=== PATIENT | male | born 1970 | race Caucasian/White ===

== ENCOUNTER 2019-12-09 09:50 | Outpatient (CLI) | payer MEDICARE, MEDICAID, SELFPAY ==
--- NOTE | 2019-12-09 10:00 | XR_ITS ---
WS: [id number] KUB, 12/09/2019 Clinical Data: Neurogenic Bladder Comparison: KUB, 08/20/2005 Findings: The patient has a vena caval filter. The patient has had a posterior fusion of the L4, L5 and S1 vert ebral bodies with bilateral pedicle screws connected with rods. The inferior pedicle screw on the rig ht has broken. There is a large amount of fecal material throughout the colon. No definite renal or ureteral calculi are seen. There are calcifications surrounding the femoral necks of both hips. XR/XR KUB [id number] Impression: 1. Negative for renal or ureteral calculi. 2. Posterior lumbar fusion L4-S1. 3. Abundant periarticular calcifications around both femoral necks..
--- NOTE | 2019-12-09 10:15 | US_ITS ---
WS: [id number] ULTRASOUND RENAL TECHNIQUE: Ultrasound examination of both kidneys. CLINICAL INFORMATION: Neurogenic bladder COMPARISON: None. FINDINGS: RIGHT: Right kidney is normal in size and appearance. Echogenicity: Normal. Hydronephrosis: None. Perinephric fluid: None. Right kidney measures: 12.0 cm x 7.3 cm x 6.1 cm. LEFT: Left kidney is normal in size and appearance. Echogenicity: Normal. Hydronephrosis: None. Perinephric fluid: None. Left kidney measures: 12.7 cm x 7.4 cm x 6.2 cm. Normal visualized aorta. US/US renal BI* [id number] IMPRESSION: No hydronephrosis in either kidney. Olivas catheter in the bladder.
== END 2019-12-09 09:51 | disposition home or self-care (01) ==
LOC: RAD 09:58
PROVIDERS: Family Provider Physician Assistant Medical; PCP Physician Assistant Medical; Visit Provider Urology
DX: N31.9 Neuromuscular dysfunction of bladder, unspecified (principal)
CPT/HCPCS: 74018; 76770

== ENCOUNTER 2020-01-11 08:51 | Outpatient (CLI) | payer MEDICARE, MEDICAID, SELFPAY ==
[2020-01-11] MEDS: iohexol 300 mg/mL 100 mL Btl IV (09:11)
--- NOTE | 2020-01-11 10:00 | CT_ITS ---
WS: [id number] CT ABDOMEN AND PELVIS WITH AND WITHOUT CONTRAST HISTORY: Urinary retention TECHNIQUE: Unenhanced 5 mm axial imaging first performed through the abdomen. Post contrast imaging t hrough the abdomen and pelvis. Oral contrast has not been provided. Sagittal and coronal reformats a re submitted. All CT scans at [facility] use at least one of these dose optimization tech niques: automated exposure control; mA and/or kV adjustment per patient size (includes targeted exams where dose is matched to clinical indication); or iterative reconstruction. CONTRAST: Omnipaque 300; 95 mL IV. DLP: 4536.27 mGy.cm COMPARISON: Pelvis MRI 06/23/2017. Mild chronic emphysematous changes at the lung bases. No pneumonia. Heart size is normal. Small hiata l hernia. Liver is normal size with diffuse mild hepatic steatosis. No mass. Portal vein is patent. No bile rajni t dilatation. Gallbladder is contracted with no stones or adjacent inflammation. Normal size spleen a nd pancreas and adrenal glands. Scattered calcifications within the abdominal aorta with no aneurysm. There is an IVC filter at the level of the renal veins. No adenopathy or fluid in the upper abdomen. RIGHT kidney: Normal size kidney with no calcifications or obstruction. No solid mass. Incomplete svitlana ling of the ureter on delayed imaging. No filling defect in the ureter. LEFT kidney: Normal size LEFT kidney. Cortical scar along the posterior upper pole. No calcification or obstruction or solid mass. Normal enhancement of the kidney and normal excretion. No filling defec t in the LEFT ureter. Urinary bladder: Nondistended urinary bladder. There is a Olivas catheter in place. There is diffuse b ladder wall thickening around the catheter. No asymmetry of bladder wall thickness. No free fluid. No GI tract obstruction. No significant diverticular disease. Again noted is the large soft tissue tracts over the RIGHT lateral hip. This tract contains air which is embedded along the tract. This tract and soft tissue ulceration has been present since at least 2 017. There is an additional soft tissue ulceration posterior to the sacrum which is also been present on previous the described. There are no adjacent fluid collections or abnormal enhancement to sugges t a recurrent or new abscess. LEFT lateral convex scoliosis of the lumbar spine. Advanced degenerative changes at the hips. Extensi ve calcifications in the soft tissues around the hips probably related to myositis ossificans. Cloth Folder Hand ior fusion hardware in the lumbar spine. L4 anterolisthesis by [address]/CT abdomen pelvis wo/w [id number] IMPRESSION: 1. No renal mass or obstruction. 2. Olivas catheter in a nondistended urinary bladder. Symmetric bladder wall th ickening is probably due to underdistention. 3. Mild hepatic steatosis. 4. Soft tissue ulcerated tracts over the RIGHT hip and sacrum are chronic and have been previously described. No recurrent or new abscess identified. 5. Myositis ossificans at the hips.
== END 2020-01-11 08:52 | disposition home or self-care (01) ==
PROVIDERS: Family Provider Physician Assistant Medical; PCP Physician Assistant Medical; Visit Provider Urology
DX: M61.58 Other ossification of muscle, other site (principal); R33.9 Retention of urine, unspecified; K76.0 Fatty (change of) liver, not elsewhere classified
CPT/HCPCS: 74178

== ENCOUNTER 2021-05-01 08:42 | Outpatient (CLI) | payer MEDICARE, MEDICAID, SELFPAY ==
--- NOTE | 2021-05-01 08:15 | XR_ITS ---
WS: [id number] KUB, AP view, 05/01/2021 Clinical Data: HX OF BLADDER STONE Comparison: KUB, 12/09/2019. Findings: No renal or ureteral calculi are seen. There is air and colon gas obscuring detail over both kidneys. There is a vena caval filter. There are stimulator wires overlying the L5 vertebra. A posterior fusi on from L4 to S1 is seen. The right L5 pedicle screw has broken. There are bilateral synovial calcifications surrounding the hips. XR/XR KUB [id number] Impression: Negative for renal or ureteral calculi.
== END 2021-05-01 08:43 | disposition home or self-care (01) ==
LOC: RAD 08:45
PROVIDERS: PCP Physician Assistant Medical; Visit Provider Urology
DX: Z87.448 Personal history of other diseases of urinary system (principal)
CPT/HCPCS: 74018

== ENCOUNTER 2022-07-12 19:06 | Inpatient (IN) | payer MEDICARE, MEDICAID, SELFPAY ==
[2022-07-12] VITALS (12 sets, daily range): BP systolic 104–175; BP diastolic 67–90; PULSE 96–118; RESP 16–35; TEMP 37.2–37.6; O2SAT 87–98; BMI 32.1
--- NOTE | 2022-07-12 19:19 | XRR_ITS ---
PROCEDURE INFORMATION: Exam: XR Chest Exam date and time: 07/12/2022 7:32 PM Age: 52 years old Clinical indication: Other: Sepsis; Patient HX: Unclear HX due to PT condition TECHNIQUE: Imaging protocol: Radiologic exam of the chest. Views: 1 view. COMPARISON: CR Chest 2 views* [id number] 06/22/2017 10:17 AM FINDINGS: Lungs: Half interstitial prominence with peribronchial cuffing consistent with mild interstitial pulmonary edema. Probable mild pneumonia infiltrates at both lung bases. Pleural spaces: Unremarkable. No pleural effusion. No pneumothorax. Heart/Mediastinum: Unremarkable. No cardiomegaly. Bones/joints: There has been fusion of the lower cervical spine. Right convex curvature may be due to positioning or muscle spasm. There are degenerative changes throughout the spine. XR/XR chest 1V portable [id number] IMPRESSION: Mild pneumonia infiltrates at the lung bases with probable superimposed pulmonary edema.
--- NOTE | 2022-07-12 19:19 | CTR_ITS ---
PROCEDURE INFORMATION: Exam: CT Head Without Contrast Exam date and time: 07/12/2022 7:51 PM Age: 52 years old Clinical indication: Altered mental status/memory loss; Additional info: AMS TECHNIQUE: Imaging protocol: Computed tomography of the head without contrast. Radiation optimization: All CT scans at this facility use at least one of these dose optimization techniques: automated exposure control; mA and/or kV adjustment per patient size (includes targeted exams where dose is matched to clinical indication); or iterative reconstruction. COMPARISON: CT head wo con* [id number] 04/10/2017 8:25 AM RADIATION DOSE METRICS: Total DLP (mGy-cm): 1310.18 FINDINGS: Brain: Normal. No hemorrhage. Unremarkable white matter. No mass effect. Cerebral ventricles: No ventriculomegaly. Paranasal sinuses: Mucosal thickening in the right ethmoid and maxillary sinuses. Mastoid air cells: Visualized mastoid air cells are well aerated. Bones/joints: Unremarkable. No acute fracture. Soft tissues: Unremarkable. CT/CT head wo con* [id number] IMPRESSION: No acute intracranial abnormality.
[2022-07-12 19:24] LABS: ABG PCO2 29.4 mmHg (35-45); ABG PH Result 7.47 (7.35-7.45); Arterial Blood Gas Hematocrit 22.1 % (42-52); Base Excess ABG -1.8 mmol/L (-2.0-2.0); Blood Gas Sample Site Brachial, left; Blood Gas Sample Type Arterial; HCO3 ABG 21.5 mmol/L (22-26); Oxygen Device NC; PO2 ABG 47.2 mmHg (80.0-100.0)
--- NOTE | 2022-07-12 19:49 | ED_ITS ---
HPI - Altered Mental Status General: Chief Complaint: Altered Mental Status Stated Complaint: SOB Time Seen by Provider: 07/12/22 19:06 History of Present Illness: 52-year-old paraplegic male. He presents after 3 days or so of fever. states that his fever was 104 yesterday at home. Today it has not been quite as high, but his mental status has been worse today. Mental status seems to fluctuate from more coherent and less. He began to get short of breath this afternoon, and EMS was called. He denies significant cough, belly pain, vomiting. He has been tested 2 times at home for COVID and has been negative. MD complaint: altered mental status and confusion Onset (ago): day(s) Timing confirmed by: spouse Consistency of symptoms: Getting Worse Context: recent fever Treatments prior to arrival: oxygen Review of Systems Const: Reports: fever(s) and chills; Denies: body aches Eyes: Denies: change in vision Card: Denies: chest pain or palpitations Resp: Reports: dyspnea and non-productive cough; Denies: productive cough or wheezing GI: Denies: abdominal pain, nausea, vomiting, diarrhea or hematochezia Skin/Breast: Reports: other (Chronic decubitus wounds); Denies: rash Neuro: Denies: headache(s), weakness in extremities, dizziness or confusion PFS ED PFSH: Medical History ASHD (arteriosclerotic heart disease) Chronic indwelling Olivas catheter History of bladder stone CYSTOLITHOLAPAXY Hyperlipidemia Hypertension 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-6) Recurrent UTI Retention of urine due to occlusion of Olivas catheter Surgical History History of cervical spinal surgery History of lumbar surgery Family History Mother Hypertension Father Arthritis Social History Smoking and tobacco status: former smoker Alcohol intake: never Adopted: No Caregiver/support person: No Lives independently: No Household members: significant other Marital status: Current occupational status: disabled History of recent travel: No Physical Exam Const: GENERAL APPEARANCE: in distress, ill appearing and frail appearing HENMT: COMMON NORMALS: normocephalic, atraumatic and Normal external nose present HEAD & SCALP: normocephalic and atraumatic FACE & SINUS: normal facial exam NOSE: Normal external nose present Eye: COMMON NORMALS: Equal, round and reactive pupils present and EOMs intact bilaterally PUPIL: Yes Equal, round and reactive pupils present Neck/C-Spine: GENERAL: Yes trachea midline Chest: CHEST: Yes Symmetrical chest wall rise Resp: EFFORT & INSPECTION: Yes respiratory distress and Yes uses accessory muscles AUSCULTATION: diminished lung sounds Cardio: COMMON NORMALS: regular rhythm RATE: tachycardic RHYTHM: regular rhythm GI: COMMON NORMALS: Normal to inspection, nondistended, normoactive bowel sounds present, Soft to palpation and non-tender PALPATION: Yes Soft to palpation : COMMON NORMALS: Yes no CVA tenderness BLADDER/KIDNEY EXAM: Yes no CVA tenderness Back/Pelvis: COMMON NORMALS: no CVA tenderness Neuro: FADY COMA SCALE: document GCS findings Fady coma scale eye opening: Spontaneous Fady coma scale verbal response: Confused [place] coma scale motor response: Obey commands Fady coma scale total score: 14 Psych: COMMON NORMALS: cooperative Skin: NARRATIVE SKIN EXAM: 3 decubitus wounds. 1 new, uncovered, but very clean, no drainage, no redness Course Vital Signs: Vital signs: Vital Signs Temperature 98.1 F 07/15/22 04:00 Pulse Rate 76 07/15/22 12:00 Respiratory Rate 16 07/15/22 12:00 Blood Pressure 130/78 07/15/22 12:00 Pulse Oximetry 94 07/15/22 12:00 Oxygen Delivery Me thod 07/15/22 12:00 Oxygen Flow Rate 2 07/15/22 10:43 MDM - Altered Mental Status Medical Decision Making This gentleman is altered. He answers some questions appropriately. He is tachycardic, febrile. He has a white blood cell count of 16.5. His hemoglobin is 7.4. I do not have a prior one for comparison. His sodium is 122. His bicarbonate is 18 his lactate is 3. He has right greater than left-sided pneumonia. His CRP is 219. COVID PCR is pending. He does have a nitrate positive urine with only 5-10 WBCs. He is given on Vanco and Levaquin in the ER, as he has anaphylactic reactions to penicillin. Blood cultures are pending. Bolus of 2 out of 3 L so far he will go to the ICU. Lab Data : 07/15/22 02:10 07/15/22 02:[address] 07/12/22 19:19 IMPRESSION: No acute intracranial abnormality. Chest CTA 07/13/22 03:40 IMPRESSION: 1. No pulmonary artery embolism identified. 2. Specific mild mediastinal and pulmonary hilar lymphadenopathy. 3. Possible pulmonary arterial hypertension. Clinical correlation is recommended. 4. Airspace opacity right lower lobe superior segment. Pneumonitis is difficult to exclude. Clinical correlation is recommended. 5. Pulmonary emphysema. 6. Groundglass opacity in the right upper, greater than 6 mm. Impression. Recommend followup CT in 6-12 months to confirm persistence, then CT at 3 and 5 years (Robb et al., Fleischner Society, 2017). 7. Coronary atherosclerosis. 8. Minimal bilateral pleural effusions. Venous Duplex 07/13/22 03:40 IMPRESSION: No evidence of deep vein thrombosis. Chest X-Ray 07/13/22 09:15 IMPRESSION: Slightly increased mild perihilar and basilar interstitial opacities, suggestive of increased pulmonary edema and/or interstitial pneumonia. Recommend correlation with clinical history and follow-up. Soft Tissue Ultrasound 07/14/22 18:40 IMPRESSION: No RIGHT gluteal soft tissue abscess. Laboratory Results WBC 16.5 10^3/uL (4.0-10.0) H 07/12/22 19:39 RBC 4.57 10^6/uL (4.1-5.3) 07/12/22 19:39 Hgb 7.4 g/dL (11.7-16.6) L 07/12/22 19:39 Hct 29.4 % (42.0-52.0) L 07/12/22 19:39 MCV 64.3 fl (80-94) L 07/12/22 19:39 MCH 16.2 pg (28.0-34.0) L 07/12/22 19:39 MCHC 25.2 g/dL (30.0-36.0) L 07/12/22 19:39 RDW 20.7 % (12.1-15.1) H 07/12/22 19:39 Plt Count 270 10^3/cmm (130-400) 07/12/22 19:39 MPV 9.4 fL (7.4-10.4) 07/12/22 19:39 Neut % (Auto) 87.6 % 07/12/22 19:39 Lymph % (Auto) 3.5 % 07/12/22 19:39 [place] % (Auto) 7.2 % 07/12/22 19:39 Eos % (Auto) 0.5 % 07/12/22 19:39 Baso % (Auto) 0.4 % 07/12/22 19:39 Reticulocyte % (Auto) 1.1 % (0.5-2.0) 07/12/22 19:39 Neut # (Auto) 14.45 10^3/uL (1.8-7.7) H 07/12/22 19:39 Lymph # (Auto) 0.6 10^3/uL (0.8-4.8) L 07/12/22 19:39 [place] # (Auto) 1.2 10^3/uL (0.2-0.9) H 07/12/22 19:39 Eos # (Auto) 0.1 10^3/uL (0.0-0.8) 07/12/22 19:39 Baso # (Auto) 0.1 10^3/uL (0.0-0.1) 07/12/22 19:39 Nucleated RBC % (auto) 0 % 07/12/22 19:39 Nucleated RBCs # 0.0 /100WBC 07/12/22 19:39 Specimen Type Arterial 07/12/22 19:19 Sample Site Brachial, left 07/12/22 19:19 ABG pH 7.47 (7.35-7.45) H 07/12/22 19:19 ABG pCO2 29.4 mmHg (35-45) L 07/12/22 19:19 ABG pO2 47.2 mmHg (80.0-100.0) L 07/12/22 19:19 ABG HCO3 21.5 mmol/L (22-26) L 07/12/22 19:19 ABG Base Excess -1.8 mmol/L (-2.0-2.0) 07/12/22 19:19 Magno Test N/a 07/12/22 19:19 Hematocrit 22.1 % (42-52) L 07/12/22 19:19 O2 Delivery Device Nc 07/12/22 19:19 O2 Liters/Min 4.0 % 07/12/22 19:19 Shader And Toner ID Jermainenja 07/12/22 19:19 Sodium 123 mmol/L (136-145) L 07/12/22 21:37 Potassium 4.0 mmol/L (3.5-5.1) 07/12/22 19:39 Chloride 88 mmol/L (98-107) L 07/12/22 19:39 Carbon Dioxide 18 mmol/L (22-29) L 07/12/22 19:39 Anion Gap 20.0 (5-19) H 07/12/22 19:39 BUN 20 mg/dL (6-20) 07/12/22 19:39 Creatinine 0.4 mg/dL (0.7-1.2) L 07/12/22 19:39 GFR Calculation 225.0 mL/min (90-130) H 07/12/22 19:39 Glucose 191 mg/dL (65-115) H 07/12/22 19:39 Calculated Osmolality 262 mOsm/kg (285-295) L 07/12/22 19:39 Lactate 2.9 mmol/L (0.5-2.2) H 07/12/22 19:39 Uric Acid 5.1 mg/dL (3.4-7.0) 07/12/22 21:37 Calcium 8.4 mg/dL (8.5-10.5) L 07/12/22 19:39 Iron 10 ug/dL (59-158) L 07/12/22 21:37 Iron Cancelled 07/12/22 21:37 TIBC 268 mcg/dl 07/12/22 21:37 % Saturation 3.7 % (20-50) L 07/12/22 21:37 Unsat Iron Binding 258 ug/dL (112-347) 07/12/22 21:37 Ferritin 71 ng/mL (30-400) 07/12/22 21:37 Total Bilirubin 0.7 mg/dL (0.15-1.2) 07/12/22 19:39 AST 87 U/L (0-40) H 07/12/22 19:39 ALT 60 U/L (0-41) H 07/12/22 19:39 Alkaline Phosphatase 98 U/L (40-130) 07/12/22 19:39 C-Reactive Protein 219.0 mg/L (0.0-4.9) H 07/12/22 19:39 NT-Pro-B Natriuret Pep 2864 pg/mL (0-125) H 07/12/22 19:39 Total Protein 6.5 g/dL (6.6-8.7) L 07/12/22 19:39 Albumin 3.2 g/dL (3.5-5.2) L 07/12/22 19:39 Globulin 3.3 g/dL (1.3-4.6) 07/12/22 19:39 Vitamin B12 565 pg/mL (232-1245) 07/12/22 21:37 Procalcitonin 27.43 ng/mL (0-0.5) H 07/12/22 21:37 TSH 0.77 uIU/mL (0.27-4.20) 07/12/22 21:37 Urine Color Lovely (Yellow) 07/12/22 21:02 Urine Appearance Clear (CLEAR) 07/12/22 21:02 Urine pH 5 (5-7) 07/12/22 21:02 Ur Specific [place] 1.010 (1.005-1.030) 07/12/22 21:02 Urine Protein 2+ (Negative) H 07/12/22 21:02 Urine Glucose (UA) Norm (Normal) 07/12/22 21:02 Urine Ketones 1+ (Negative) H 07/12/22 21:02 Urine Blood 2+ (Negative) H 07/12/22 21:02 Urine Nitrate Positive (Negative) H 07/12/22 21:02 Urine Bilirubin 1+ (Negative) H 07/12/22 21:02 Urine Urobilinogen 4 mg/dL (Negative) H 07/12/22 21:02 Ur Leukocyte Esterase Trace (Negative) H 07/12/22 21:02 Urine RBC 0-4 /hpf (0-2) H 07/12/22 21:02 Urine WBC 5-10 /hpf (0-5) H 07/12/22 21:02 Ur Eosinophil Smear 0 (0-0) 07/12/22 08:26 Ur Squamous Epith Cells 0-4 /hpf (0-5) H 07/12/22 21:02 Amorphous Sediment Trace /hpf 07/12/22 21:02 Urine Bacteria Trace /hpf (NONE) 07/12/22 21:02 Urine Mucus 1+ /hpf 07/12/22 21:02 Urine Yeast 2+ /hpf H 07/12/22 21:02 Urine Sperm 1+ /hpf 07/12/22 21:02 Urine Eosinophils No eosinophils seen 07/12/22 08:26 Urine Osmolality Cancelled 07/12/22 21:02 Ur Random Microalbumin 6 ug/dL (0-20) 07/12/22 08:26 Ur Random Sodium 146 mmol/L 07/12/22 08:26 Ur Random Potassium 38 mmol/L 07/12/22 08:26 Ur Random Chloride 144 mmol/L 07/12/22 08:26 Urine Creatinine 25 mg/dL (39-259) L 07/12/22 08:26 Urine Creatinine 25 mg/dL (39-259) L 07/12/22 08:26 Microalb/Creat Ratio 240 mg/dL (0-20) H 07/12/22 08:26 Ethyl Alcohol < 10 mg/dL (0-10) 07/12/22 19:39 Coronavirus 229E (PCR) Not detected (NOT DETECT) 07/12/22 21:02 SARS-CoV-2 (PCR) Not detected (NOT DETECT) 07/12/22 21:02 Discharge Plan Discharge Patient Disposition: Admitted As Inpatient Admit Provider: Corine Rubalcava Clinical Impression: Sepsis Condition: Stable Coding Level of Care Code ED Family Services Assistant for Chg Fwd Exam Comprehensive
[2022-07-12 19:51] LABS: Basophils # 0.1 10^3/uL (0.0-0.1); Basophils % 0.4 %; Eosinophils # 0.1 10^3/uL (0.0-0.8); Eosinophils % 0.5 %; Hematocrit 29.4 % (42.0-52.0); Hemoglobin 7.4 g/dL (11.7-16.6); Lymphocytes # 0.6 10^3/uL (0.8-4.8); Lymphocytes % 3.5 %; Mean Corpuscular HGB Conc 25.2 g/dL (30.0-36.0); Mean Corpuscular Hemoglobin 16.2 pg (28.0-34.0); Mean Corpuscular Volume 64.3 fl (80-94); Mean Platelet Volume 9.4 fL (7.4-10.4); Monocytes # 1.2 10^3/uL (0.2-0.9); Monocytes % 7.2 %; Neutrophils # 14.45 10^3/uL (1.8-7.7); Neutrophils % 87.6 %; Nucleated Red Blood Cells % 0 %; Platelet Count 270 10^3/cmm (130-400); Red Blood Count 4.57 10^6/uL (4.1-5.3); Red Cell Distribution Width 20.7 % (12.1-15.1); White Blood Count 16.5 10^3/uL (4.0-10.0)
[2022-07-12 20:04] LABS: Lactate (Lactic Acid level) 2.9 mmol/L (0.5-2.2)
[2022-07-12 20:18] LABS: Alanine Aminotransferase 60 U/L (0-41); Albumin Level 3.2 g/dL (3.5-5.2); Alkaline Phosphatase 98 U/L (40-130); Aspartate Amino Transferase 87 U/L (0-40); Blood Urea Nitrogen 20 mg/dL (6-20); Calcium 8.4 mg/dL (8.5-10.5); Carbon Dioxide 18 mmol/L (22-29); Chloride 88 mmol/L (98-107); Globulin 3.3 g/dL (1.3-4.6); Glucose 191 mg/dL (65-115); NT Pro B Type Natriuretic Pept 2864 pg/mL (0-125); Osmolality Calculated 262 mOsm/kg (285-295); Sodium 122 mmol/L (136-145); Total Bilirubin 0.7 mg/dL (0.15-1.2); Total Protein 6.5 g/dL (6.6-8.7)
[2022-07-12 20:19] LABS: Alcohol Level < 10 mg/dL (0-10)
[2022-07-12] MEDS: sodium chloride 0.9% 1,000 ML 999 ML IV ×3 (20:23→21:59)
[2022-07-12] MEDS: levofloxacin-dextrose 5 % 750 MG/150 ML PREMIX 100 MG IV (20:23)
--- NOTE | 2022-07-12 21:00 | ECG_ITS ---
[facility] Test Date: 2022-07-12 Pat Name: David Chen Department: Room: Gender: Male Exhibit Artist: : 1970 Requested By: Elver Baker Order Number: [id number] Terry MD: Shiloh Olivia M.D. Measurements Intervals [place] Rate: 100 P: 37 MI: 140 QRS: 51 QRSD: 98 T: 63 QT: 335 QTc: 434 Interpretive Statements SINUS TACHYCARDIA INCOMPLETE RIGHT BUNDLE BRANCH BLOCK Compared to ECG 04/07/2017 14:08:27 Incomplete right bundle-branch block now present Atrial fibrillation no longer present T-wave abnormality no longer present Electronically Signed On 07-13-2022 13:05:24 CDT by Shiloh Olivia M.D. [id number]
--- NOTE | 2022-07-12 21:27 | P.HP_ITS ---
Providers/Chief Complaint Chief Complaint: SOB History of Present Illness David Chen is a 52 year old male With history of coronary disease, STEMI status post PCI to RCA postcardiac arrest defibrillation preserved ejection fraction heart failure, patient is quadriplegic, wheelchair dependent, chronic indwelling catheter, follows up with Dr. Alberts neurogenic bladder secondary to spinal cord injury recurrent UTIs cystolithiasis presented with chief complaint of shortness of breath and confusion. Patient is stating that he was fine until 48 hours ago when he short experiencing shortness of breath, he does not use any oxygen or CPAP at night, he noticed fever of 104, his shortness of breath gradually got worse, he is going to episode of diarrhea, he was concerned about COVID-related symptoms, no recent exposure. No active chest pain, abdominal pain, he does have multiple sacral ulcers, right greater trochanter ulcer which is not showing any active signs of worsening, dressing is soaked with mild yellow discharge. In the ER he has been diagnosed with sepsis related to community-acquired pneumonia, considering recurrent UTI history UA is pending I have requested urine studies, serum osmolarity TSH uric acid he has already received antibiotics, blood culture has been taken I will give him vancomycin, metronidazole and aztreonam Patient is stating that he had anaphylactic type reaction to penicillin several years ago Is full code Currently on nonrebreather mask 7 L of oxygen Tachypneic, tachycardic, leukocytosis with lactic acidemia I am choosing only 1 L normal saline bolus because of hyponatremia I do not want to aggressively give him septic bolus at this point my concern is related to rapid correction of sodium which can cause central pontine melanosis At this point patient is moving his upper extremities, able to answer my question appropriately He eats regular diet Review of Systems Const: Reports: fever(s), chills and body aches Eyes: Denies: change in vision ENMT: Denies: throat pain Card: Denies: chest pain Resp: Reports: dyspnea GI: Reports: nausea and diarrhea : Denies: flank pain Musc: Denies: neck pain Skin/Breast: Reports: sores, non-healing lesions and lesions Neuro: Reports: headache(s) Psych: Reports: anxiety Endo: Denies: polyuria Sarwat/Lymph: Denies: easy bruising All/Imm: Denies: urticaria Medications/Allergies Home Medications Medication Instructions Recorded Confirmed Last Taken Type albuterol sulfate 90 mcg/actuation 2 puff inhalation Q4H PRN 11/17/19 05/01/21 Unknown History aerosol inhaler amitriptyline 10 mg tablet 10 mg PO BID 11/17/19 05/01/21 Unknown History ascorbate calcium (vitamin C) 500 500 mg PO BID 11/17/19 05/01/21 Unknown History mg tablet aspirin 81 mg tablet,delayed 81 mg PO DAILY 11/17/19 05/01/21 Unknown History release (Adult Aspirin Regimen) atorvastatin 40 mg tablet 40 mg PO DAILY 11/17/19 05/01/21 Unknown History baclofen 20 mg tablet 20 mg PO TID 11/17/19 05/01/21 Unknown History bupropion HCl 150 mg 24 hr tablet, 150 mg PO BID 11/17/19 05/01/21 Unknown History extended release clopidogrel 75 mg tablet 75 mg PO DAILY 11/17/19 05/01/21 Unknown History coenzyme [id number] E [CoQ10 SG PO 11/17/19 05/01/21 Unknown History 100] d-mannose each PO 11/17/19 05/01/21 Unknown History esomeprazole magnesium 20 mg 20 mg PO DAILY 11/17/19 05/01/21 Unknown History capsule,delayed release (Nexium) fluticasone propionate 50 2 spray intranasal DAILY PRN 11/17/19 05/01/21 Unknown History mcg/actuation nasal spray,suspension (Flonase Allergy Relief) gabapentin 300 mg capsule 300 mg PO TID 11/17/19 05/01/21 Unknown History ibuprofen 200 mg capsule 200 mg PO DAILY PRN fever or pain 11/17/19 05/01/21 Unknown History metformin 1,000 mg tablet,extended 1,000 mg PO BID 11/17/19 05/01/21 Unknown History release 24hr methenamine hippurate 1 gram tablet 1 gm PO BID 11/17/19 05/01/21 Unknown History multivitamin,jc-xcvx-[id number] 1 tab PO DAILY 11/17/19 05/01/21 Unknown History (Complete Multivitamin) paroxetine HCl 20 mg tablet 20 mg PO DAILY 11/17/19 05/01/21 Unknown History zinc 50 mg tablet 50 mg PO DAILY 11/17/19 05/01/21 Unknown History nitrofurantoin 100 mg capsule 100 mg PO BID 05/01/21 05/01/21 Unknown History Allergies Allergy/AdvReac Type Severity Reaction Status Date / Time Penicillins Allergy THROAT Verified 05/01/21 09:23 SWELLS SHUT Sulfa (Sulfonamide Allergy HIVES Verified 05/01/21 09:23 Antibiotics) PFSH Acute PFSH: Medical History ASHD (arteriosclerotic heart disease) Chronic indwelling Olivas catheter History of bladder stone CYSTOLITHOLAPAXY Hyperlipidemia Hypertension 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-6) Recurrent UTI Retention of urine due to occlusion of Olivas catheter Surgical History History of cervical spinal surgery History of lumbar surgery Family History Mother Hypertension Father Arthritis Social History Smoking and tobacco status: former smoker Alcohol intake: never Adopted: No Caregiver/support person: No Lives independently: No Household members: significant other Marital status: Current occupational status: disabled History of recent travel: No Vitals/I&O/Wt Last Vital Signs Temp 99.7 F H 07/12/22 19:09 Pulse 103 H 07/12/22 21:10 Resp 24 H 07/12/22 21:10 BP 126/82 07/12/22 21:10 Pulse Ox 96 07/12/22 21:10 O2 Del Method 07/12/22 21:10 O2 Flow Rate 10 07/12/22 19:33 Weight last 48 hrs Weight 104.326 kg Physical Exam Narrative: Middle-age male Bedbound Able to move his upper extremities Paraplegic Indwelling catheter draining red-colored urine Lower extremity atrophy noted Right greater trochanteric ulcer no active signs of cellulitis Stage III-IV sacral ulcer present on admission, skin is macerated, no active purulent drainage, there is dressing with mild yellow-tinged secretions Abdomen is soft S1, S2 sinus tachycardia Bilateral breath sounds with rhonchi and crackles Patient does look dehydrated No signs of fluid overload clinically Data : 07/12/22 19:39 07/12/22 19:39 Micro: Microbiology 07/12/22 19:24 Blood Culture - Preliminary Blood SPECIMEN COLLECTED 07/12/22 19:39 Blood Culture - Preliminary Blood SPECIMEN COLLECTED A&P Assessment and plan (1) Hyponatremia: Status: Acute (2) Sepsis: Status: Acute (3) Community acquired pneumonia: Status: Acute (4) ASHD (arteriosclerotic heart disease): Status: Acute (5) Recurrent UTI: Status: Acute (6) Chronic indwelling Olivas catheter: Status: Acute Plan Sepsis Family noticed confusion Patient is not confused at the time of my evaluation No signs of shock Criteria met with tachypnea fever tachycardia, lactic acidemia and leukocytosis Source of fever seems to be community-acquired pneumonia Sacral ulcer, right greater trochanter ulcer does not look infected I will start him on vancomycin, metronidazole and aztreonam considering penicillin allergy Blood cultures have been taken I am reluctant to give him septic bolus because of his hyponatremia I do not want to rapidly correct his sodium I would only give 1 L normal saline for now Clinically patient looks dehydrated Had 2 episode of diarrhea No active chest pain Community-acquired pneumonia Cover with broad-spectrum antibiotics Sputum culture Acute hypoxia Related to community-acquired pneumonia and sepsis Currently requiring nonrebreather mask 7L Check D-dimer rule out PE His BNP is higher No active chest pain Serial troponin and EKG Chronic hyponatremia Previous sodium level seems to be normal He is on multiple anxiolytics and antidepressants which can cause SSRI however clinically he does look dehydrated I am giving 1 L normal saline checking sodium every 4 hours He is not on any diuretics Chronic indwelling catheter related to spinal cord injury neurogenic bladder Urine does not look infected Positive hematuria, patient also takes methenamine which has discolored his urine No signs of kidney injury Full code Regular diet DVT prophylaxis Heparin Pressure ulcers present on admission does not look infected Admit to ICU for monitoring of sodium level Attestations Medical Necessity Statement*: More than 2 midnights anticipated for sepsis, community-acquired pneumonia, hyponatremia Time Spent in Patient Care: 40 Coding Level of Care Code 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
[2022-07-12 21:34] LABS: Add Urine Microscopic? YES; Bilirubin Urine 1+ (Negative); Blood Urine 2+ (Negative); Glucose Urine UA Norm (Normal); Ketones Urine 1+ (Negative); Leukocyte Esterase Urine Trace (Negative); Nitrate Urine Positive (Negative); Protein Urine 2+ (Negative); Urine Appearance Clear (CLEAR); Urine Color Amber (Yellow); Urobilinogen Urine 4 mg/dL (Negative); pH Urine 5 (5-7)
[2022-07-12 21:35] LABS: Bacteria Urine TRACE /hpf; RBC Urine 0-4 /hpf (0-2); Squamous Epithelial Cell Urine 0-4 /hpf (0-5)
[2022-07-12 21:36] LABS: Amorphous Sediment Urine TRACE /hpf; Mucus Urine 1+ /hpf; Sperm Urine 1+ /hpf
[2022-07-12 21:37] LABS: Add Urine Culture? Yes
--- NOTE | 2022-07-12 21:40 | USCV_ITS ---
David Chen Age: 52 Gender: M : 1970 Exam Date: 07/12/2022 23:36 Ordering Phys: Corine Rubalcava MD Technologist: Melvin Mccarty Exam Location: [facility] – [place] Indication: Congestive heart failure BP: 106 / 67 HR: 98 Rhythm: Sinus Technical Quality: Adequate MEASUREMENTS (Male / Female) Normal Values 2D ECHO LV Diastolic Diameter PLAX 4.6 cm 4.2 - 5.9 / 3.9 - 5.3 cm LV Systolic Diameter PLAX 3.7 cm IVS Diastolic Thickness 1.5 cm 0.6 - 1.0 / 0.6 - 0.9 cm IVS Systolic Thickness 1.5 cm LVPW Diastolic Thickness 1.5 cm 0.6 - 1.0 / 0.6 - 0.9 cm LVPW Systolic Thickness 2.0 cm LVOT Diameter 1.9 cm LV Ejection Fraction 2D Teich 39.4 % LV Ejection Fraction MOD 2C 37.9 % LV Ejection Fraction 2C AL 38.9 % LA Diameter 3.3 cm LA Width 5.0 cm LA Height 5.0 cm RA Width 5.4 cm RA Height 5.0 cm Aorta at Sinotubular Diameter 2.4 cm IVC Diameter 1.8 cm M-MODE Aortic Annulus Diameter 2.9 cm LA Ao Ratio MM 1.3 MV E Point Septal Separation 0.9 cm DOPPLER AV Peak Velocity 154.3 cm/s LVOT Peak Velocity 98.0 cm/s AV Area Cont Eq vti 1.8 cm squared AV Area Cont Eq pk 1.7 cm squared MV Area PHT 3.6 cm squared Mitral E to A Ratio 1.4 MV E' Velocity 68.0 cm/s Mitral E to MV E' Ratio 9.5 Mitral E to LV E' Lateral Ratio 7.4 Mitral E to LV E' Septal Ratio 13.2 TR Peak Velocity 268.4 cm/s TR Peak Gradient 28.8 mmHg TR Mean Velocity 226.8 cm/s TR Mean Gradient 21.5 mmHg TR Velocity Time Integral 94.5 cm Right Atrial Pressure 13.0 mmHg Pulmonary Artery Systolic Pressu 41.8 mmHg PV Peak Velocity 116.0 cm/s FINDINGS Left Ventricle Normal left ventricular cavity size. Mildly decreased left ventricular systolic function. Left ventricular ejection fraction is estimated at 50-55%. This study is inadequate for estimation of regional wall motion abnormality. Abnormal septal motion consistent with conduction abnormality. Right Ventricle Right ventricle not well visualized. Probably normal right ventricular size and systolic function. Right Atrium Right atrium not well visualized. Left Atrium Left atrium not well visualized. Mitral Valve Structurally normal mitral valve. Trace mitral valve regurgitation. Aortic Valve Mildly thickened trileaflet aortic valve. Mild aortic valve regurgitation. Tricuspid Valve Tricuspid valve not well visualized. Pulmonic Valve Pulmonic valve not well visualized. No pulmonary valve stenosis. No significant pulmonary valve regurgitation. Pericardium No pericardial effusion. Aorta Normal size aortic root and proximal ascending aorta. IVC Normal IVC dimension with >50% respiratory change of the inferior vena cava. CONCLUSIONS 1. This is a technically very difficult study. 2. Normal left ventricular cavity size. Mildly decreased left ventricular systolic function. Left ventricular ejection fraction is estimated at 50-55%. This study is inadequate for estimation of regional wall motion abnormality. Abnormal septal motion consistent with conduction abnormality. 3. Mild aortic valve regurgitation. 4. Recommend repeat study with echo contrast. Shiloh Olivia MD (Electronically Signed) Final Date: 13 July 2022 12:59 S
[2022-07-12] MEDS: vancomycin 1,250 MG/250 ML PIGGYBACK 250 MG IV (22:00)
--- NOTE | 2022-07-12 22:22 | PC.PHAR ---
Vancomycin is dosed at 1500mg IVPB every 8 hours to produce a predicted trough level of 15.02 (population based pharmacokinetic analysis). A trough level has been ordered from the lab to be obtained before the fourth dose to confirm and adjust if needed.
[2022-07-12 22:35] LABS: Reticulocyte % 1.1 % (0.5-2.0)
[2022-07-12 22:46] LABS: Procalcitonin 27.43 ng/mL (0-0.5); Thyroid Stimulating Hormone 0.77 uIU/mL (0.27-4.20)
[2022-07-12 22:55] LABS: Adenovirus Not Detected (NOT DETECT); Chlamydia Pneumoniae Not Detected (NOT DETECT); Coronavirus 229E,HKU1,NL63,OC4 Not Detected (NOT DETECT); Human Metapneumovirus Not Detected (NOT DETECT); Human Rhinovirus/Enterovirus Not Detected (NOT DETECT); Influenza A Not Detected (NOT DETECT); Influenza A H1 Not Detected (NOT DETECT); Influenza A H1-2009 Not Detected (NOT DETECT); Influenza A H3 Not Detected (NOT DETECT); Influenza B Not Detected (NOT DETECT); Mycoplasma Pneumoniae Not Detected (NOT DETECT); Parainfluenza Virus Type 1 Not Detected (NOT DETECT); Parainfluenza Virus Type 2 Not Detected (NOT DETECT); Parainfluenza Virus Type 3 Not Detected (NOT DETECT); Parainfluenza Virus Type 4 Not Detected (NOT DETECT); Respiratory Syncytial Virus A Not Detected (NOT DETECT); Respiratory Syncytial Virus B Not Detected (NOT DETECT); SARS-COV-2 Not Detected (NOT DETECT)
[2022-07-12] MEDS: pantoprazole 40 mg SDV IVP (22:55)
[2022-07-12] MEDS: acetaminophen 500 mg Tablet PO (22:55)
[2022-07-12 22:57] LABS: Sodium 123 mmol/L (136-145); Uric Acid 5.1 mg/dL (3.4-7.0)
--- NOTE | 2022-07-12 23:25 | PC.NURSE ---
Pt and his concerned that he does not have Metformin, Gabapentin, Methenamine, Probiotics, Amytriptyline, or Baclofen ordered, especially Gabapentin and Baclofen. Dr. Rubalcava notified. Orders for Probiotics and Methenamine received. Pt's notified and will bring in Methenamine in the AM.
[2022-07-13] VITALS (35 sets, daily range): BP systolic 94–154; BP diastolic 56–84; PULSE 82–112; RESP 15–32; TEMP 36.6–37; O2SAT 88–100
[2022-07-13] LABS: D Dimer 2.75 ug/mIFEU (0-0.59)
[2022-07-13 00:10] LABS: Ferritin 71 ng/mL (30-400); Iron 10 ug/dL (59-158); Percent Saturation 3.7 % (20-50); Total Iron Binding Capacity 268 mcg/dl; Unsaturated Iron Binding 258 ug/dL (112-347)
[2022-07-13 00:26] LABS: Vitamin B12 565 pg/mL (232-1245)
--- NOTE | 2022-07-13 01:37 | PC.NURSE ---
Pt tells me that he can't stand to wear the oxymask any longer
[2022-07-13 02:11] LABS: Basophils % 0.4 %; Eosinophils % 0.3 %; Hematocrit 28.2 % (42.0-52.0); Hemoglobin 7.2 g/dL (11.7-16.6); Lymphocytes # 0.4 10^3/uL (0.8-4.8); Lymphocytes % 3.4 %; Mean Corpuscular HGB Conc 25.5 g/dL (30.0-36.0); Mean Corpuscular Hemoglobin 15.9 pg (28.0-34.0); Mean Corpuscular Volume 62.3 fl (80-94); Mean Platelet Volume 10.2 fL (7.4-10.4); Monocytes # 1.3 10^3/uL (0.2-0.9); Monocytes % 11.4 %; Neutrophils # 9.34 10^3/uL (1.8-7.7); Nucleated Red Blood Cells % 0 %; Platelet Count 231 10^3/cmm (130-400); Red Blood Count 4.53 10^6/uL (4.1-5.3); Red Cell Distribution Width 20.3 % (12.1-15.1); White Blood Count 11.1 10^3/uL (4.0-10.0)
[2022-07-13 02:31] LABS: Anion Gap 13.5 (5-19); Blood Urea Nitrogen 13 mg/dL (6-20); C Reactive Protein 242.9 mg/L (0.0-4.9); Calcium 8.5 mg/dL (8.5-10.5); Carbon Dioxide 22 mmol/L (22-29); Chloride 101 mmol/L (98-107); Glomerular Filtration Rate 313.6 mL/min (90-130); Glucose 166 mg/dL (65-115); Magnesium 1.8 mg/dL (1.7-2.3); Osmolality Calculated 280 mOsm/kg (285-295); Phosphorus 2.4 mg/dL (2.5-4.5); Potassium 3.5 mmol/L (3.5-5.1); Sodium 133 mmol/L (136-145)
[2022-07-13 03:02] LABS: Slide Review Slide Review Perform
--- NOTE | 2022-07-13 03:40 | USR_ITS ---
PROCEDURE INFORMATION: Exam: US Duplex Lower Extremity Veins, Bilateral Exam date and time: 07/13/2022 6:05 AM Age: 52 years old Clinical indication: Other: Increased d dimer and PT bed bound; Patient HX: Sepsis and quad; Additional info: Swelling TECHNIQUE: Imaging protocol: Real-time Duplex ultrasound of the bilateral extremities with 2-D mats scale, color Doppler flow and spectral waveform analysis with image documentation. Complete exam focused on the bilateral lower extremity veins. COMPARISON: US SoftTissue/Extrem t [id number] 03/26/2018 7:54 AM FINDINGS: Right deep veins: The common femoral, femoral, popliteal and visualized calf/posterior tibial veins are patent without thrombus. Normal Doppler waveforms. Normal compressibility and/or augmentation response. Right superficial veins: Saphenofemoral junction is patent without thrombus. Left deep veins: The common femoral, femoral, popliteal and visualized calf/posterior tibial veins are patent without thrombus. Normal Doppler waveforms. Normal compressibility and/or augmentation response. Left superficial veins: Saphenofemoral junction is patent without thrombus. Soft tissues: Unremarkable. US/[place] [id number] IMPRESSION: No evidence of deep vein thrombosis.
--- NOTE | 2022-07-13 03:40 | CTR_ITS ---
PROCEDURE INFORMATION: Exam: CTA Chest With Contrast Exam date and time: 07/13/2022 2:44 PM Age: 52 years old Clinical indication: Shortness of breath; Additional info: Hypoxia TECHNIQUE: Imaging protocol: Computed tomographic angiography of the chest with contrast. 3D rendering (Not supervised by radiologist): MIP reconstructed images were created by the technologist. Radiation optimization: All CT scans at this facility use at least one of these dose optimization techniques: automated exposure control; mA and/or kV adjustment per patient size (includes targeted exams where dose is matched to clinical indication); or iterative reconstruction. Contrast material: OMNI 350; Contrast volume: 80 ml; Contrast route: INTRAVENOUS (IV); COMPARISON: CR (CHEST, ) 07/13/2022 9:38 AM RADIATION DOSE METRICS: Total DLP (mGy-cm): 511.89 FINDINGS: Pulmonary arteries: No pulmonary artery embolism identified. The main and bilateral pulmonary arteries are enlarged with peripheral tapering. Aorta: Mild aortic arch atherosclerotic calcification without ectasia. Thyroid: The bilateral thyroid lobes are unremarkable. Lungs: Airspace opacity right lower lobe superior segment. There is moderate paraseptal emphysema bilaterally, most extensively in the upper lung zones. Bilateral lower lobe bands, right upper lobe anterior segment of subsegmental and partial atelectasis. 17 mm ground-glass opacity right upper lobe anterior segment (LOC 154.2). Additional subsegmental atelectasis in the lingula and medial right middle lobe. Pleural spaces: Minimal bilateral pleural effusions. No pneumothorax. Heart: Atherosclerotic calcifications are present involving the RCA coronary artery. Lymph nodes: Right paratracheal lymph nodes, largest 12.6 mm short axis. Aorticopulmonary window lymph nodes, largest 9.1 mm short axis. Right hilar lymph nodes, largest 12.0 mm short axis. Left hilar lymph nodes, largest 10.4 mm short axis. Bones/joints: Lower cervical spinal anterior fixation hardware. Thoracic spine vertebral body marginal osteophytes are noted at multiple levels. Healed fracture lateral right 2nd rib. Chronic left 2nd through 6th rib fractures. Soft tissues: Unremarkable. CT/CT angio chest PE protcl [id number] IMPRESSION: 1. No pulmonary artery embolism identified. 2. Specific mild mediastinal and pulmonary hilar lymphadenopathy. 3. Possible pulmonary arterial hypertension. Clinical correlation is recommended. 4. Airspace opacity right lower lobe superior segment. Pneumonitis is difficult to exclude. Clinical correlation is recommended. 5. Pulmonary emphysema. 6. Groundglass opacity in the right upper, greater than 6 mm. Impression. Recommend followup CT in 6-12 months to confirm persistence, then CT at 3 and 5 years (Robb et al., Fleischner Society, 2017). 7. Coronary atherosclerosis. 8. Minimal bilateral pleural effusions.
--- NOTE | 2022-07-13 04:01 | PC.NURSE ---
Awaiting D5W from pharmacy.
[2022-07-13] MEDS: iron sucrose 200 MG in sodium chloride 0.9% (100 ml) 100 ML 220 MG IV (04:06)
[2022-07-13] MEDS: dextrose 5% 1,000 ML 100 ML IV (04:18)
--- NOTE | 2022-07-13 05:02 | PC.NURSE ---
Consent for blood placed on paper chart.
[2022-07-13] MEDS: vancomycin 1,500 MG/300 ML PIGGYBACK 150 MG IV ×3 (05:08→21:34)
[2022-07-13 06:17] LABS: Phosphorus 2.4 mg/dL (2.5-4.5); Sodium 134 mmol/L (136-145)
[2022-07-13 06:18] LABS: Lactate (Lactic Acid level) 0.9 mmol/L (0.5-2.2)
--- NOTE | 2022-07-13 09:15 | XRR_ITS ---
PROCEDURE INFORMATION: Exam: XR Chest Exam date and time: 07/13/2022 9:38 AM Age: 52 years old Clinical indication: Shortness of breath; Additional info: SOB TECHNIQUE: Imaging protocol: Radiologic exam of the chest. Views: 1 view. COMPARISON: CR XR chest 1V portable [id number] 07/12/2022 7:32 PM FINDINGS: Lungs: There are normal lung volumes. Slightly increased mild perihilar and basilar interstitial opacities, suggestive of increased pulmonary edema and/or interstitial pneumonia. Recommend correlation with clinical history and follow-up. Pleural spaces: There are no pleural effusions or pneumothorax. Heart/Mediastinum: The heart size is unchanged. There is a mildly tortuous thoracic aorta. The trachea is in the midline. Bones/joints: No acute abnormalities. Soft tissues: Multiple external densities are seen overlying the chest, limiting assessment. XR/XR chest 1V portable [id number] IMPRESSION: Slightly increased mild perihilar and basilar interstitial opacities, suggestive of increased pulmonary edema and/or interstitial pneumonia. Recommend correlation with clinical history and follow-up.
[2022-07-13 09:33] LABS: Potassium, Radom Urine 38 mmol/L; Urine Creatinine 25 mg/dL (39-259); Urine Random Chloride 144 mmol/L; Urine Random Sodium 146 mmol/L
[2022-07-13] MEDS: PARoxetine 20 mg Tablet PO (09:33)
[2022-07-13] MEDS: clopidogrel 75 mg Tablet PO (09:33)
[2022-07-13] MEDS: aspirin 81 mg EC Tablet PO (09:33)
[2022-07-13] MEDS: ascorbic acid 500 mg Tablet PO (09:33)
[2022-07-13] MEDS: metroNIDAZOLE 500 MG Tablet PO ×3 (09:33→21:34)
[2022-07-13] MEDS: atorvastatin 40 mg Tablet PO (09:33)
[2022-07-13] MEDS: buPROPion XL (24 HR) 150 mg Tablet PO ×2 (09:33→17:21)
[2022-07-13] MEDS: baclofen 10 mg Tablet 20 MG PO ×3 (09:33→21:34)
[2022-07-13] MEDS: gabapentin 100 mg Capsule PO ×3 (09:33→21:34)
[2022-07-13] MEDS: FUROsemide 10 mg/mL SDV 4mL 40 MG IVP (09:34)
[2022-07-13] MEDS: pantoprazole 40 mg SDV IVP ×2 (09:35→21:34)
[2022-07-13 09:38] LABS: Creatinine Urine, Random 25 mg/dL (39-259); Microalbumin Random Urine 6 ug/dL (0-20)
[2022-07-13 09:40] LABS: Microalbum Creatinine Ratio Ur 240 mg/dL (0-20)
[2022-07-13] MEDS: acetaminophen 500 mg Tablet PO ×2 (10:04→14:04)
[2022-07-13] MEDS: aztreonam 1,000 MG in sodium chloride 0.9% (plus) 50 ML 100 MG IV ×2 (10:05→17:20)
[2022-07-13 10:20] LABS: Sodium 131 mmol/L (136-145)
[2022-07-13 11:04] LABS: Eosinophil Urine No Eosinophils Seen; Urine Eosinophil Count 0 (0-0)
[2022-07-13 14:13] LABS: Sodium 135 mmol/L (136-145)
[2022-07-13] MEDS: iohexol 350 mg/mL 100 mL Btl IV (14:59)
--- NOTE | 2022-07-13 15:43 | PC.NURSE ---
0900 pt in respiratory distress upon my assessment. Dr Ugalde notified. chest xray and lasix ordered. iv fluids stopped. home medications ordered. pt placed on 15L simple mask. pt has since put out 3L of urine, currently on 5L nc, all symptoms of distress relieved and is resting comfortalby. does want to hold blood, will draw labs in am and reassess. pt placed on rented air mattress per patients request and dr flores.
[2022-07-13] MEDS: lactobacillus 1 Tablet 1 TAB PO (17:20)
[2022-07-13 18:15] LABS: Hemoglobin 7.2 g/dL (11.7-16.6)
--- NOTE | 2022-07-13 18:32 | PM.PN ---
Subjective Subjective: This morning he was dyspneic, felt like he could not catch a deep breath at all. No chest pain. Not much cough. Olivas catheter was changed probably about a week earlier. Vitals/I&O/Wt Last Vital Signs Temp 98.6 F 07/13/22 12:00 Pulse 88 07/13/22 18:00 Resp 29 H 07/13/22 18:00 BP 108/70 07/13/22 18:00 Pulse Ox 93 07/13/22 18:00 O2 Del Method 07/13/22 08:00 O2 Flow Rate 6 07/13/22 08:00 07/13/22 07/13/22 07/13/22 06:59 14:59 22:59 Intake Total 4280.967 / 5280.967 1644.033 / 1644.033 850 / 2494.033 Output Total 6100 / 6100 3850 / 3850 1000 / 4850 Balance -1819.033 / -819.033 -2205.967 / -2205.967 -150 / -2355.967 Weight last 48 hrs Weight 99.79 kg Weight 101.968 kg Weight 104.326 kg Physical Exam Narrative: Accompanied by his . Quadruparesis. Able to lift his arms with considerable effort Const: COMMON NORMALS: patient oriented x3 and alert GENERAL APPEARANCE: cooperative ORIENTATION/CONSCIOUSNESS: Yes awake HENMT: COMMON NORMALS: oropharynx normal Neck/C-Spine: COMMON NORMALS: no JVD Resp: COMMON NORMALS: normal respiratory effort AUSCULTATION: crackles and diminished lung sounds OTHER: Increased work of breathing. Cardio: COMMON NORMALS: no JVD, regular rhythm, S1 normal heart sound present, S2 normal heart sound present and No murmurs present (Cardio) RHYTHM: regular rhythm HEART SOUNDS: S1 normal heart sound present and S2 normal heart sound present GI: COMMON NORMALS: Normal to inspection, nondistended, normoactive bowel sounds present, Soft to palpation and non-tender PALPATION: Yes Soft to palpation : OTHER: Chronic Olivas draining clear urine Extremity: COMMON NORMALS: no joint enlargement and no pedal edema Neuro: COMMON NORMALS: patient oriented x3 and moves all extremities SENSORIUM/ORIENTATION: Yes alert Skin: COMMON NORMALS: no rashes or lesions noted GENERAL SKIN EXAM: no rashes or lesions noted Data : 07/13/22 18:05 07/13/22 13:50 Micro: Microbiology 07/12/22 19:24 Blood Culture - Preliminary Blood SPECIMEN COLLECTED 07/12/22 19:39 Blood Culture - Preliminary Blood SPECIMEN COLLECTED A&P Assessment and plan (1) Acute respiratory failure with hypoxia: Multifactorial acute respiratory failure with hypoxia. Community-acquired pneumonia. Also fluid overload, pulmonary edema. Diminished lung sounds, crackles. This morning. Increased work of breathing. Was increased up to 15 L simple mask. With quadriparesis/weakness contributing, discussed with him and requested CPAP support to which he would be agreeable. I also gave him Lasix 40 mg IV. Stopped IV fluids. He subsequently gradually improving, oxygen requirement down to 5 L. Continue antibiotic coverage for pneumonia. COVID-19 PCR was negative. History of IVC filter, D-dimer abnormal, negative lower extremity duplex CT angiogram of the chest without PE. Mild mediastinal and pulmonary hilar lymphadenopathy. Possible pulmonary hypertension. Right lower lobe airspace opacity. Emphysema. Groundglass opacity in the right upper greater than 6 mm. Recommended follow-up CT in 6-12 months to confirm persistence then CT at 3-5 years. Coronary atherosclerosis. Minimal bilateral pleural effusions. Echocardiogram with normal ejection fraction 50-55%. Abnormal septal motion consistent with conduction normality. Mild AVR. Technically difficult study. Consider repeat with contrast. Status: Acute (2) Hyponatremia: Improved. Some fluctuation, was transiently on D5W this morning due to slightly rapid increase in sodium, but currently steady at 133. We will reduce sodium checks. Status: Acute (3) Community acquired pneumonia: Continue aztreonam, vancomycin. He is empirically on Flagyl as well. Status: Acute (4) Sepsis: Improving. Sinus tachycardia resolving. Leukocytosis improving. Follow-up blood cultures. Continue treatment of the as above. Status: Acute (5) ASHD (arteriosclerotic heart disease): Status: Acute (6) Recurrent UTI: Status: Acute (7) Chronic indwelling Olivas catheter: Borderline UA, only 5-10 WBC, is nitrate positive. Follow-up urine culture. Does have chronic indwelling Olivas. Status: Acute Plan Quadriparesis Pressure ulcers present on admission does not look infected Attestations Medical Necessity Statement*: Continue admission for assessment of management of hypoxic respiratory failure, community-acquired pneumonia, improving sepsis Coding Level of Care Code Acute Territory Sales Manager Medical for Chg Fwd Diagnoses Acute respiratory failure with hypoxia J96.01 Hyponatremia E87.1 Community acquired pneumonia J18.9 Sepsis A41.9 ASHD (arteriosclerotic heart disease) I25.10 Recurrent UTI N39.0 Chronic indwelling Olivas catheter Z96.0
[2022-07-13 18:41] LABS: Sodium 133 mmol/L (136-145)
[2022-07-13 22:32] LABS: Sodium 137 mmol/L (136-145)
[2022-07-14] VITALS (24 sets, daily range): BP systolic 87–144; BP diastolic 54–82; PULSE 74–105; RESP 12–27; TEMP 36.2–37.3; O2SAT 89–98
--- NOTE | 2022-07-14 00:20 | PC.NURSE ---
Pt tells me that he is sweaty, which means that something is wrong with his catheter. Catheter tubing repositioned. Bubbler placed on pt's oxygen.
[2022-07-14 04:22] LABS: Basophils % 0.3 %; Eosinophils # 0.1 10^3/uL (0.0-0.8); Eosinophils % 0.7 %; Hematocrit 26.6 % (42.0-52.0); Lymphocytes # 0.8 10^3/uL (0.8-4.8); Lymphocytes % 11.1 %; Mean Corpuscular HGB Conc 26.3 g/dL (30.0-36.0); Mean Corpuscular Volume 60.7 fl (80-94); Mean Platelet Volume 10.2 fL (7.4-10.4); Monocytes % 13.8 %; Neutrophils # 5.17 10^3/uL (1.8-7.7); Neutrophils % 73.7 %; Nucleated Red Blood Cells % 0 %; Platelet Count 250 10^3/cmm (130-400); Red Blood Count 4.38 10^6/uL (4.1-5.3); Red Cell Distribution Width 20.2 % (12.1-15.1)
[2022-07-14 04:33] LABS: Add RBC Morph Yes; RBC Morph Comp No
[2022-07-14 04:34] LABS: Hypochromasia 2+; Microcytosis 3+
[2022-07-14 04:35] LABS: Ovalocytes 1+; Schistocytes Trace; Tear Drop Cells Trace
[2022-07-14 04:40] LABS: Vancomycin Trough 14.1 ug/mL (10-15)
[2022-07-14 04:41] LABS: Alanine Aminotransferase 51 U/L (0-41); Albumin Level 3.2 g/dL (3.5-5.2); Alkaline Phosphatase 93 U/L (40-130); Anion Gap 14.2 (5-19); Aspartate Amino Transferase 44 U/L (0-40); Blood Urea Nitrogen 11 mg/dL (6-20); Calcium 8.7 mg/dL (8.5-10.5); Carbon Dioxide 25 mmol/L (22-29); Chloride 101 mmol/L (98-107); Globulin 3.5 g/dL (1.3-4.6); Glomerular Filtration Rate 313.6 mL/min (90-130); Glucose 165 mg/dL (65-115); Osmolality Calculated 287 mOsm/kg (285-295); Potassium 3.2 mmol/L (3.5-5.1); Sodium 137 mmol/L (136-145); Total Bilirubin 0.4 mg/dL (0.15-1.2); Total Protein 6.7 g/dL (6.6-8.7)
[2022-07-14] MEDS: vancomycin 1,500 MG/300 ML PIGGYBACK 150 MG IV ×3 (05:20→23:30)
[2022-07-14] MEDS: gabapentin 100 mg Capsule PO ×2 (08:35→21:15)
[2022-07-14] MEDS: PARoxetine 20 mg Tablet PO (08:35)
[2022-07-14] MEDS: buPROPion XL (24 HR) 150 mg Tablet PO ×2 (08:35→17:56)
[2022-07-14] MEDS: metroNIDAZOLE 500 MG Tablet PO ×3 (08:35→21:15)
[2022-07-14] MEDS: aspirin 81 mg EC Tablet PO (08:35)
[2022-07-14] MEDS: clopidogrel 75 mg Tablet PO (08:35)
[2022-07-14] MEDS: ascorbic acid 500 mg Tablet PO (08:35)
[2022-07-14] MEDS: lactobacillus 1 Tablet 1 TAB PO ×2 (08:35→17:56)
[2022-07-14] MEDS: atorvastatin 40 mg Tablet PO (08:35)
[2022-07-14] MEDS: baclofen 10 mg Tablet 20 MG PO (08:36)
[2022-07-14] MEDS: potassium chloride ER 20 mEq Tablet 40 MEQ PO (08:36)
[2022-07-14] MEDS: aztreonam 1,000 MG in sodium chloride 0.9% (plus) 50 ML 100 MG IV ×2 (08:36→17:57)
[2022-07-14] MEDS: sennosides-docusate Tablet 1 TAB PO (08:36)
--- NOTE | 2022-07-14 10:19 | PC.CHAP ---
Pastoral Care Encounter/Spiritual Assessment Type of Contact [] Declined ppa teacher visit [] Patient/Family/Request visit [] Outpatient visit [] Follow-up visit [] Physician referral [] Code/Alert [x] Routine visit [] Staff referral [] Actively dying [] Patient sleeping [x] Family support [] [] Out of room [] Palliative care [] [] Receiving care in room [] Pre-surgical visit [] Trauma [] Long length of stay [x] ICU visit [] Other: Relational/Emotional Strength [] Patient feels connected with others/family/visitors/staff [] Distress [] Loneliness/isolation [] Abandonment Spirituality of Patient [] Person of Courtney [] Attends Buddhist of their Courtney [] Believes in Prayer [] Reads Bible or Sabianist materials [] There are Spiritual issues to be addressed Director Health Interventions [x] Prayer [] Active listening [] Non-anxious presence [] Spiritual/emotional support [] Crisis/trauma care [] Spiritual counseling [] Bereavement support [] Provided bereavement packet [] Provided Bible/devotional materials [] Provided toy/stuffed animal, coloring book to patient or family member [] Provided Communion [] Anointing/[place] [] Salvation [x] Completed spiritual assessment [] Other: Impact on Illness or Injury [] Angry [] Fearful [] Anxious [] Often cries [] Exhaustion [] Unable to work [] Unable to attend tenriism [] Unable to walk/stand [] Unable to read [] Unable to drive [] Unable to eat/drink [] Unable to sleep [] Unable to be with family [] Patient intubated [] Other: Summary PT feeling a lot better... staff is taking good care as well as assisting with his care( as she does at home) Time spent with patient
[2022-07-14] MEDS: pantoprazole 40 mg SDV IVP (11:54)
--- NOTE | 2022-07-14 12:31 | PC.NURSE ---
Report called to EDWARDO Streeter. Patient and belonging going to be transferred to [facility] [place].
--- NOTE | 2022-07-14 13:26 | PC.NURSE ---
Patient and belongings taken to room 255-1, at bedside. Patient oriented to room and call system. Primary nurse notified of patient's arrival.
[2022-07-14 15:02] LABS: Sodium 139 mmol/L (136-145)
[2022-07-14 17:13] LABS: Magnesium 1.8 mg/dL (1.7-2.3)
[2022-07-14] MEDS: baclofen 10 mg Tablet 40 MG PO (17:56)
[2022-07-14] MEDS: guaiFENesin 600 mg Tablet PO (17:57)
--- NOTE | 2022-07-14 18:40 | US_ITS ---
WS: [id number] ULTRASOUND SOFT TISSUES RIGHT gluteal region. HISTORY: Possible abscess. COMPARISON: None available. TECHNIQUE: 2-D and color Doppler imaging is submitted. Ultrasound directed over the open wound over the RIGHT gluteal region. There is no focal abscess iden tified. Mild skin thickening and edema. There is a small focal area of fibrosis and skin thickening. No abscess. US/US soft tissue/extremity [id number] IMPRESSION: No RIGHT gluteal soft tissue abscess.
--- NOTE | 2022-07-14 19:32 | P.PN_ITS ---
Subjective Subjective: Today he was overall feeling better. Breathing continues to gradually improved. Not much in terms of cough. Later on in the day he is experiencing more and more spasms. Baclofen has been at reduced dose, and gabapentin was initially reduced dose, subsequently withheld due to low blood pressures. Family endorse chronic low blood pressures in him and his would like to resume at least some medications due to the severity of his symptoms. We discussed risks of worsening hypotension, shock, organ hypoperfusion, potentially dangerous multiorgan injury. He would like to at least resume gabapentin, continue baclofen at lower dose, we also discussed consideration of methocarbamol which perhaps may have less propensity for hypotension although we cannot guarantee. He is concerned that without starting additional antispasmodics his spasms will become unbearable. Vitals/I&O/Wt Last Vital Signs Temp 98.4 F 07/14/22 16:00 Pulse 95 07/14/22 16:00 Resp 16 07/14/22 16:00 BP 108/70 07/14/22 16:00 Pulse Ox 94 07/14/22 16:00 O2 Del Method 07/14/22 16:00 O2 Flow Rate 4 07/14/22 16:00 07/14/22 07/14/22 07/14/22 06:59 14:59 22:59 Intake Total 1020 / 3994.033 1770 / 1770 Output Total 850 / 5700 850 / 850 Balance 170 / -1705.967 920 / 920 Weight last 48 hrs Weight 98.203 kg Weight 99.79 kg Weight 101.968 kg Physical Exam Narrative: Accompanied by his . Quadruparesis. Able to lift his arms with considerable effort Const: COMMON NORMALS: patient oriented x3 and alert GENERAL APPEARANCE: cooperative ORIENTATION/CONSCIOUSNESS: Yes awake HENMT: COMMON NORMALS: oropharynx normal Neck/C-Spine: COMMON NORMALS: no JVD Resp: COMMON NORMALS: normal respiratory effort AUSCULTATION: crackles and diminished lung sounds OTHER: Increased work of breathing. Cardio: COMMON NORMALS: no JVD, regular rhythm, S1 normal heart sound present, S2 normal heart sound present and No murmurs present (Cardio) RHYTHM: regular rhythm HEART SOUNDS: S1 normal heart sound present and S2 normal heart sound present GI: COMMON NORMALS: Normal to inspection, nondistended, normoactive bowel so unds present, Soft to palpation and non-tender PALPATION: Yes Soft to pal pation : OTHER: Chronic Olivas draining clear urine Extremity: COMMON NORMALS: no joint enlargement and no pedal edema Neuro: COMMON NORMALS: patient oriented x3 and moves all extremities SENSORIUM/ORIENTATION: Yes alert Skin: OTHER: Right gluteal ulceration 2 cm in size, about 3 cm undermining medially, slough at the base and bonilla. With small amount of serous drainage mixed with slough. Per this had appeared recently before the hospitalization. Prior history of much more extensive tracks in the same area currently not present. Sacral ulcer about 4 cm in size, with central ulceration at coccyx, without o bvious bone exposure, slough covering the base of the pressure ulcer. Urinary Catheter Management: Olivas: Cath Placed During This Visit: no Reason for Continuing Indwelling Catheter: Chronic Indwelling Urinary Catheter on Admission Data : 07/14/22 03:56 07/14/22 14:28 Micro: Microbiology 07/14/22 09:20 Occult Blood (FIT) - Final Stool Routine Collection 07/12/22 21:02 Urine Culture - Final Urine,Clean Catch 07/12/22 19:24 Blood Culture - Preliminary Blood NEGATIVE TO DATE 07/12/22 19:39 Blood Culture - Preliminary Blood NEGATIVE TO DATE A&P Assessment and plan (1) Acute respiratory failure with hypoxia: Gradually improving. Subjectively he is feeling better, objectively he is coming down to 4 L nasal cannula oxygen support. Continue treatment of community-acquired pneumonia. Improved fluid overload after initial resuscitation, pulmonary edema improved after Lasix. Now good air entry. Resolved crackles. COVID-19 PCR was negative. History of IVC filter, D-dimer abnormal, negative lower extremity duplex, CT angiogram of the chest without PE. Mild mediastinal and pulmonary hilar lymphadenopathy. Possible pulmonary hypertension. Right lower lobe airspace opacity. Emphysema. Groundglass opacity in the right upper greater than 6 mm. Recommended follow-up CT in 6-12 months to confirm persistence then CT at 3-5 years. Coronary atherosclerosis. Minimal bilateral pleural effusions. Echocardiogram with normal ejection fraction 50-55%. Abnormal septal motion consistent with conduction normality. Mild AVR. Technically difficult study. Consider repeat with contrast. Status: Acute (2) Anemia: Combination MADAN, ACD. Hemoccult requested, appears to be coming back negative. Nontender clear chronicity of this. He presented with anemia hemoglobin 7.4, currently down to 7. Given 1 unit RBC transfusion. Reassess hemoglobin. Iron deficiency will benefit from replacement. Would additionally benefit at some point from endoscopic evaluation. Will stop NSAID at discharge. Continue PPI. Status: Acute (3) Hyponatremia: Resolved. Status: Acute (4) Community acquired pneumonia: Continue aztreonam, vancomycin. He is empirically on Flagyl as well. Status: Acute (5) Sepsis: Improving. Sinus tachycardia resolving. Leukocytosis resolving. Follow-up blood cultures. Continue treatment of the as above. Status: Acute (6) ASHD (arteriosclerotic heart disease): Status: Acute (7) Recurrent UTI: Chronic indwelling Olivas. Borderline UA on presentation. Currently urine culture 40-50,000 CFU of more than 3 different types of organisms. Probable contaminants. Status: Acute (8) Chronic indwelling Olivas catheter: Chronic Olivas, last changed 2 weeks earlier. Status: Acute (9) Ground glass opacity present on imaging of lung: Groundglass opacity in the right upper greater than 6 mm. Recommended follow-up CT in 6-12 months to confirm persistence then CT at 3-5 years. Status: Acute (10) Pressure ulcers of skin of multiple topographic sites: Right gluteal ulcer about a centimeter in depth, about 3 cm undermining, slough, some serous drainage mixed with slough. Pack undermining area with Nu Gauze, cover with silver sorb. Requested ultrasound of right gluteal ulcer to exclude any underlying collection/abscess. Has history of significantly more extensive tracking ulcers several years back. Sacral ulcer about 4 cm in size, slough at base, start Santyl, cover with silver sorb. Please reassess if needing debridement. He has stopped follow-up with wound care, please arrange wound care follow-up at discharge. Status: Acute Plan Quadriparesis: Get significant spasms, due to soft blood pressure gabapentin initially decreased in dose, clinic decrease dose. His blood pressure is usually on the low side, however, currently appears lower than normally, drop down as low as 66 mmHg mean today. However, they are concerned that his spasms will continue to worsen and become unbearable. Would like to resume gabapentin at least at a lower dose, as well as muscle relaxant. Continue baclofen at lower dose, and they want to try adding methocarbamol. Monitor blood pressure. As blood pressure improving, resume usual antispasmodic regimen. Attestations Medical Necessity Statement*: Continue admission for assessment management of improving sepsis, respiratory failure, community-acquired pneumonia, acute or acute on chronic anemia and gentleman with quadriparesis. Coding Level of Care Code Acute Manager Radio for [facility] Fwd Diagnoses Acute respiratory failure with hypoxia J96.01 Anemia D64.9 Hyponatremia E87.1 Community acquired pneumonia J18.9 Sepsis A41.9 ASHD (arteriosclerotic heart disease) I25.10 Recurrent UTI N39.0 Chronic indwelling Olivas catheter Z96.0 Ground glass opacity present on imaging of lung R91.8 Pressure ulcers of skin of multiple topographic sites L89.90
[2022-07-14] MEDS: sodium chloride 0.9% (100 ml) 100 ML (21:13)
[2022-07-14] MEDS: methocarbamol 500 mg Tablet PO (21:17)
[2022-07-14 21:34] LABS: Hemoglobin 7.3 g/dL (11.7-16.6)
[2022-07-15] VITALS (7 sets, daily range): BP systolic 105–147; BP diastolic 70–79; PULSE 73–86; RESP 16–17; TEMP 36.6–36.7; O2SAT 92–94
[2022-07-15] MEDS: pantoprazole 40 mg SDV IVP ×2 (00:26→08:14)
[2022-07-15 02:55] LABS: Basophils # 0.1 10^3/uL (0.0-0.1); Basophils % 0.7 %; Eosinophils # 0.2 10^3/uL (0.0-0.8); Eosinophils % 2.7 %; Hematocrit 32.3 % (42.0-52.0); Hemoglobin 8.1 g/dL (11.7-16.6); Lymphocytes # 1.7 10^3/uL (0.8-4.8); Lymphocytes % 20.3 %; Mean Corpuscular HGB Conc 25.1 g/dL (30.0-36.0); Mean Corpuscular Hemoglobin 16.7 pg (28.0-34.0); Mean Corpuscular Volume 66.7 fl (80-94); Mean Platelet Volume 10.3 fL (7.4-10.4); Monocytes % 12.5 %; Neutrophils # 5.19 10^3/uL (1.8-7.7); Neutrophils % 62.8 %; Nucleated Red Blood Cells % 0.4 %; Platelet Count 270 10^3/cmm (130-400); Red Blood Count 4.84 10^6/uL (4.1-5.3); White Blood Count 8.3 10^3/uL (4.0-10.0)
[2022-07-15 03:17] LABS: Alanine Aminotransferase 43 U/L (0-41); Albumin Level 2.8 g/dL (3.5-5.2); Alkaline Phosphatase 82 U/L (40-130); Anion Gap 15.2 (5-19); Aspartate Amino Transferase 27 U/L (0-40); Blood Urea Nitrogen 12 mg/dL (6-20); Calcium 8.8 mg/dL (8.5-10.5); Carbon Dioxide 24 mmol/L (22-29); Chloride 106 mmol/L (98-107); Globulin 3.3 g/dL (1.3-4.6); Glomerular Filtration Rate 313.6 mL/min (90-130); Glucose 215 mg/dL (65-115); Osmolality Calculated 300 mOsm/kg (285-295); Potassium 3.2 mmol/L (3.5-5.1); Sodium 142 mmol/L (136-145); Total Bilirubin 0.4 mg/dL (0.15-1.2); Total Protein 6.1 g/dL (6.6-8.7)
[2022-07-15] MEDS: vancomycin 1,500 MG/300 ML PIGGYBACK 150 MG IV ×2 (06:52→12:29)
[2022-07-15] MEDS: lactobacillus 1 Tablet 1 TAB PO ×2 (08:15→18:15)
[2022-07-15] MEDS: baclofen 10 mg Tablet 40 MG PO ×2 (08:15→18:15)
[2022-07-15] MEDS: ascorbic acid 500 mg Tablet PO (08:15)
[2022-07-15] MEDS: gabapentin 100 mg Capsule PO ×2 (08:16→18:15)
[2022-07-15] MEDS: aspirin 81 mg EC Tablet PO (08:16)
[2022-07-15] MEDS: atorvastatin 40 mg Tablet PO (08:16)
[2022-07-15] MEDS: PARoxetine 20 mg Tablet PO (08:16)
[2022-07-15] MEDS: metroNIDAZOLE 500 MG Tablet PO ×2 (08:16→18:15)
[2022-07-15] MEDS: buPROPion XL (24 HR) 150 mg Tablet PO ×2 (08:17→18:15)
[2022-07-15] MEDS: guaiFENesin 600 mg Tablet PO ×2 (08:18→18:15)
[2022-07-15] MEDS: clopidogrel 75 mg Tablet PO (08:18)
[2022-07-15] MEDS: collagenase oint 30 gm 1 APPLIC TOPICAL (08:24)
[2022-07-15] MEDS: aztreonam 1,000 MG in sodium chloride 0.9% (plus) 50 ML 100 MG IV (08:56)
[2022-07-15] MEDS: potassium chloride ER 20 mEq Tablet 40 MEQ PO ×2 (10:19→12:28)
[2022-07-15] MEDS: ipratropium-albuterol 3 mL Neb INHALATION (10:40)
--- NOTE | 2022-07-15 11:17 | PM.PN ---
Subjective Subjective: reports he feels quite a bit better. Still having some spasms but nothing out of ordinary. Denies being short of breath on his current oxygen amount. History and physical reviewed. Medications: Reviewed: Yes Vitals/I&O/Wt Last Vital Signs Temp 98.1 F 07/15/22 04:00 Pulse 73 07/15/22 10:43 Resp 17 07/15/22 10:43 BP 128/76 07/15/22 07:56 Pulse Ox 94 07/15/22 10:43 O2 Del Method 07/15/22 10:43 O2 Flow Rate 2 07/15/22 10:43 07/14/22 07/15/22 07/15/22 22:59 06:59 14:59 Intake Total 390 / 2160 650 / 2810 350 / 350 Output Total 800 / 1650 Balance 390 / 1310 -150 / 1160 350 / 350 Weight last 48 hrs Weight 98.974 kg Weight 98.203 kg Physical Exam Narrative: General exam no distress, conversant and pleasant Neck supple no lymphadenopathy thyromegaly Cardiovascular regular rate and rhythm, no murmur Lungs clear Abdomen is soft, positive bowel sounds Buttocks demonstrates various stage III decubiti, with slight amount of drainage but no surrounding erythema. This is present on his right hip left and right buttock Extremities show atrophy. No cyanosis clubbing or edema. Urinary Catheter Management: Olivas: Cath Placed During This Visit: no Reason for Continuing Indwelling Catheter: Chronic Indwelling Urinary Catheter on Admission Data : 07/15/22 02:10 07/15/22 02:10 Micro: Microbiology 07/14/22 09:20 Occult Blood (FIT) - Final Stool Routine Collection 07/12/22 21:02 Urine Culture - Final Urine,Clean Catch A&P Assessment and plan (1) Acute respiratory failure with hypoxia: This is secondary to community-acquired pneumonia It appears to be resolving. He is now down to 4 L of oxygen He has no evidence of crackles on exam COVID PCR negative CT angiogram, lower extremity duplex no evidence of thrombus Nodule was noted on CT. Will need follow-up in 6 to 12 months. Echocardiogram with normal ejection fraction 50-55%. Abnormal septal motion consistent with conduction normality. Mild AVR. Status: Acute (2) Anemia: Hemoccult negative Consistent with acute on chronic anemia Received 1 unit of packed red blood cells on July 14 and hemoglobin has responded appropriately, 8.1 today. No evidence currently of acute bleeding Stop NSAID, continue PPI Consider outpatient evaluation when stable. Status: Acute (3) Hyponatremia: Resolved. Status: Acute (4) Community acquired pneumonia: Continue aztreonam, vancomycin, empiric Flagyl Status: Acute (5) Sepsis: Resolved Status: Acute (6) ASHD (arteriosclerotic heart disease): Stable Status: Acute (7) Recurrent UTI: Chronic indwelling Olivas. No evidence of acute UTI Status: Acute (8) Pressure ulcers of skin of multiple topographic sites: Right gluteal ulcer about a centimeter in depth, about 3 cm undermining, slough, some serous drainage mixed with slough. Continue wound care No evidence of abscess on ultrasound Sacral ulcer about 4 cm in size, slough at base. Continue wound care. Consider wound care referral at discharge. No need for debridement at this time Status: Acute Plan Hypokalemia, supplement Attestations Medical Necessity Statement*: Needs continued hospital stay for IV antibiotics secondary to pneumonia with high oxygen requirement 4 L. Coding Level of Care Code Acute Gis Mapping Technician for [facility] Fwd Diagnoses Acute respiratory failure with hypoxia J96.01 Anemia D64.9 Hyponatremia E87.1 Community acquired pneumonia J18.9 Sepsis A41.9 ASHD (arteriosclerotic heart disease) I25.10 Recurrent UTI N39.0 Pressure ulcers of skin of multiple topographic sites L89.90
--- NOTE | 2022-07-15 13:08 | PC.SOCIAL ---
IMM Update pg 2 of IMM updated and reviewed w/ patient and his . Copy provided and copy dated, initialed and placed in chart.
--- NOTE | 2022-07-15 15:08 | PM.DCS ---
Discharge Providers Date of Admission: 07/12/22 22:07 Date of Discharge: July 15, 2022 Attending Provider at Admission: Corine Rubalcava MD Attending Provider at Discharge: Bonifacio Vásquez MD Diagnoses at Discharge Discharge Diagnosis (1) Acute respiratory failure with hypoxia: Status: Acute (2) Anemia: Status: Acute (3) Hyponatremia: Status: Acute (4) Community acquired pneumonia: Status: Acute (5) Sepsis: Status: Acute (6) ASHD (arteriosclerotic heart disease): Status: Acute (7) Recurrent UTI: Status: Acute (8) Pressure ulcers of skin of multiple topographic sites: Status: Acute Reason for Visit Reason for Visit: SOB Hospital Course Hospital Course presented to the emergency department on July 12, with shortness of breath and confusion. He was found to have pneumonia, and there was concern for sepsis. He was given IV fluids, as well as IV antibiotics. Initial laboratory also demonstrated significant anemia with a hemoglobin of 7.4 and 1 unit of blood was ordered. Sodium was 122 on arrival which could have contributed some to his anemia. He was admitted initially to the ICU. While in the ICU it was apparent he had acute respiratory failure with hypoxemia as well. He was fluid overloaded the next day, and Lasix IV was given and fluids stopped. IV antibiotics of aztreonam and vancomycin were continued as well as Flagyl empirically. Throughout the next 48 hours he improved significantly. Blood pressures that were initially low improved. Echocardiogram was performed which demonstrated an EF of 50 to 55%. Stool Hemoccult was ultimately negative. Iron saturation significantly low. By July 15 he was feeling much better and requesting to go home. I seen him earlier in the day and he was still on significant oxygen, but with rapid improvement he had weaned off oxygen later in the day. He has been afebrile. White blood cell count had returned to normal. He was mildly hypokalemic which had been supplemented. He had some evidence of chronic wounds in his buttock area but none that appeared to have caused his presentation. A soft tissue ultrasound was done on one of the wounds to make sure no abscess was present. With cultures negative to date, it was reasonable for the patient to discharge home on oral antibiotics. Please note that a venous duplex was also done, and head CT which were both negative for any acute findings. A chest CT demonstrated a probable right lower lobe pneumonia. He was encouraged to follow-up with his primary care provider, in 3 to 5 days with blood work. He will initiate iron with his medications. He may need further evaluation of his anemia. They will continue to try to keep pressure off his wounds, and continue wound care with collagenase which was started here in the hospital. Physical Exam Narrative: General exam no distress Neck is supple Cardiovascular regular in rhythm without murmur Lungs clear Abdomen is soft, positive bowel sounds Extremities no cyanosis clubbing or edema. Atrophy is noted. Multiple areas of skin breakdown as noted in the note earlier today. Urinary Catheter Management: Olivas: Cath Placed During This Visit: no Reason for Continuing Indwelling Catheter: Chronic Indwelling Urinary Catheter on Admission Discharge Data Studies Completed and Pending Completed Studies During Hospitalization Category Date Time Status CT head wo con* [id number] Stat Cat Scan 07/12/22 19:19 Completed CTA PE [CT angio chest PE protcl [id number]] Routine Cat Scan 07/13/22 03:40 Completed XR chest 1V portable [id number] Stat Exams 07/12/22 19:19 Completed XR chest 1V portable [id number] Stat Exams 07/13/22 09:15 Completed CV. echo complete* [id number] Stat Ultrasound 07/12/22 21:40 Completed US soft tissue and or extremity [US soft tissue/ Ultrasound 07/14/22 18:40 Completed extremity [id number]] Routine US venous duplex lower extremity bilat [CV venous Ultrasound 07/13/22 03:40 [place] [id number]] Routine Pending at discharge Category Date Time Status Blood Culture Stat Lab 07/12/22 19:24 Results Complete Blood Count w/Auto AM LABS Lab 07/16/22 04:00 Ordered Comprehensive Metabolic Panel AM LABS Lab 07/16/22 04:00 Ordered Osmolality Serum Routine Lab 07/12/22 19:39 Received Radiology Impressions Head CT 07/12/22 19:19 IMPRESSION: No acute intracranial abnormality. Chest CTA 07/13/22 03:40 IMPRESSION: 1. No pulmonary artery embolism identified. 2. Specific mild mediastinal and pulmonary hilar lymphadenopathy. 3. Possible pulmonary arterial hypertension. Clinical correlation is recommended. 4. Airspace opacity right lower lobe superior segment. Pneumonitis is difficult to exclude. Clinical correlation is recommended. 5. Pulmonary emphysema. 6. Groundglass opacity in the right upper, greater than 6 mm. Impression. Recommend followup CT in 6-12 months to confirm persistence, then CT at 3 and 5 years (Robb et al., Fleischner Society, 2017). 7. Coronary atherosclerosis. 8. Minimal bilateral pleural effusions. Venous Duplex 07/13/22 03:40 IMPRESSION: No evidence of deep vein thrombosis. Chest X-Ray 07/13/22 09:15 IMPRESSION: Slightly increased mild perihilar and basilar interstitial opacities, suggestive of increased pulmonary edema and/or interstitial pneumonia. Recommend correlation with clinical history and follow-up. Soft Tissue Ultrasound 07/14/22 18:40 IMPRESSION: No RIGHT gluteal soft tissue abscess. Laboratory Results WBC 8.3 10^3/uL (4.0-10.0) 07/15/22 02:10 RBC 4.84 10^6/uL (4.1-5.3) 07/15/22 02:10 Hgb 8.1 g/dL (11.7-16.6) L 07/15/22 02:10 Hct 32.3 % (42.0-52.0) L 07/15/22 02:10 MCV 66.7 fl (80-94) L D 07/15/22 02:10 MCH 16.7 pg (28.0-34.0) L 07/15/22 02:10 MCHC 25.1 g/dL (30.0-36.0) L 07/15/22 02:10 RDW 23.0 % (12.1-15.1) H 07/15/22 02:10 Plt Count 270 10^3/cmm (130-400) 07/15/22 02:10 MPV 10.3 fL (7.4-10.4) 07/15/22 02:10 Neut % (Auto) 62.8 % 07/15/22 02:10 Lymph % (Auto) 20.3 % 07/15/22 02:10 Dixie % (Auto) 12.5 % 07/15/22 02:10 Eos % (Auto) 2.7 % 07/15/22 02:10 Baso % (Auto) 0.7 % 07/15/22 02:10 Reticulocyte % (Auto) 1.1 % (0.5-2.0) 07/12/22 19:39 Neut # (Auto) 5.19 10^3/uL (1.8-7.7) 07/15/22 02:10 Lymph # (Auto) 1.7 10^3/uL (0.8-4.8) 07/15/22 02:10 Dixie # (Auto) 1.0 10^3/uL (0.2-0.9) H 07/15/22 02:10 Eos # (Auto) 0.2 10^3/uL (0.0-0.8) 07/15/22 02:10 Baso # (Auto) 0.1 10^3/uL (0.0-0.1) 07/15/22 02:10 Nucleated RBC % (auto) 0.4 % 07/15/22 02:10 Nucleated RBCs # 0.0 /100WBC 07/15/22 02:10 Hypochromasia 2+ H 07/14/22 03:56 Microcytosis 3+ H 07/14/22 03:56 Tear Drop Cells Trace 07/14/22 03:56 Ovalocytes 1+ H 07/14/22 03:56 Schistocytes Trace 07/14/22 03:56 D-Dimer 2.75 ug/mIFEU (0-0.59) H 07/12/22 22:50 Specimen Type Arterial 07/12/22 19:19 Sample Site Brachial, left 07/12/22 19:19 ABG pH 7.47 (7.35-7.45) H 07/12/22 19:19 ABG pCO2 29.4 mmHg (35-45) L 07/12/22 19:19 ABG pO2 47.2 mmHg (80.0-100.0) L 07/12/22 19:19 ABG HCO3 21.5 mmol/L (22-26) L 07/12/22 19:19 ABG Base Excess -1.8 mmol/L (-2.0-2.0) 07/12/22 19:19 Magno Test N/a 07/12/22 19:19 Hematocrit 22.1 % (42-52) L 07/12/22 19:19 O2 Delivery Device Nc 07/12/22 19:19 O2 Liters/Min 4.0 % 07/12/22 19:19 Environmental Studies Department Chair ID Hinja 07/12/22 19:19 Sodium 142 mmol/L (136-145) 07/15/22 02:10 Potassium 3.2 mmol/L (3.5-5.1) L 07/15/22 02:10 Chloride 106 mmol/L (98-107) 07/15/22 02:10 Carbon Dioxide 24 mmol/L (22-29) 07/15/22 02:10 Anion Gap 15.2 (5-19) 07/15/22 02:10 BUN 12 mg/dL (6-20) 07/15/22 02:10 Creatinine 0.3 mg/dL (0.7-1.2) L 07/15/22 02:10 GFR Calculation 313.6 mL/min (90-130) H 07/15/22 02:10 Glucose 215 mg/dL (65-115) H 07/15/22 02:10 Calculated Osmolality 300 mOsm/kg (285-295) H 07/15/22 02:10 Lactate 0.9 mmol/L (0.5-2.2) 07/13/22 05:16 Uric Acid 5.1 mg/dL (3.4-7.0) 07/12/22 21:37 Calcium 8.8 mg/dL (8.5-10.5) 07/15/22 02:10 Phosphorus 2.4 mg/dL (2.5-4.5) L 07/13/22 05:16 Magnesium 1.8 mg/dL (1.7-2.3) 07/14/22 14:42 Iron 10 ug/dL (59-158) L 07/12/22 21:37 Iron Cancelled 07/12/22 21:37 TIBC 268 mcg/dl 07/12/22 21:37 % Saturation 3.7 % (20-50) L 07/12/22 21:37 Unsat Iron Binding 258 ug/dL (112-347) 07/12/22 21:37 Ferritin 71 ng/mL (30-400) 07/12/22 21:37 Total Bilirubin 0.4 mg/dL (0.15-1.2) 07/15/22 02:10 AST 27 U/L (0-40) 07/15/22 02:10 ALT 43 U/L (0-41) H 07/15/22 02:10 Alkaline Phosphatase 82 U/L (40-130) 07/15/22 02:10 C-Reactive Protein 242.9 mg/L (0.0-4.9) H 07/13/22 01:30 NT-Pro-B Natriuret Pep 2864 pg/mL (0-125) H 07/12/22 19:39 Total Protein 6.1 g/dL (6.6-8.7) L 07/15/22 02:10 Albumin 2.8 g/dL (3.5-5.2) L 07/15/22 02:10 Globulin 3.3 g/dL (1.3-4.6) 07/15/22 02:10 Vitamin B12 565 pg/mL (232-1245) 07/12/22 21:37 Procalcitonin 27.43 ng/mL (0-0.5) H 07/12/22 21:37 TSH 0.77 uIU/mL (0.27-4.20) 07/12/22 21:37 Urine Color Lovely (Yellow) 07/12/22 21:02 Urine Appearance Clear (CLEAR) 07/12/22 21:02 Urine pH 5 (5-7) 07/12/22 21:02 Ur Specific [place] 1.010 (1.005-1.030) 07/12/22 21:02 Urine Protein 2+ (Negative) H 07/12/22 21:02 Urine Glucose (UA) Norm (Normal) 07/12/22 21:02 Urine Ketones 1+ (Negative) H 07/12/22 21:02 Urine Blood 2+ (Negative) H 07/12/22 21:02 Urine Nitrate Positive (Negative) H 07/12/22 21:02 Urine Bilirubin 1+ (Negative) H 07/12/22 21:02 Urine Urobilinogen 4 mg/dL (Negative) H 07/12/22 21:02 Ur Leukocyte Esterase Trace (Negative) H 07/12/22 21:02 Urine RBC 0-4 /hpf (0-2) H 07/12/22 21:02 Urine WBC 5-10 /hpf (0-5) H 07/12/22 21:02 Ur Eosinophil Smear 0 (0-0) 07/12/22 08:26 Ur Squamous Epith Cells 0-4 /hpf (0-5) H 07/12/22 21:02 Amorphous Sediment Trace /hpf 07/12/22 21:02 Urine Bacteria Trace /hpf (NONE) 07/12/22 21:02 Urine Mucus 1+ /hpf 07/12/22 21:02 Urine Yeast 2+ /hpf H 07/12/22 21:02 Urine Sperm 1+ /hpf 07/12/22 21:02 Urine Eosinophils No eosinophils seen 07/12/22 08:26 Urine Osmolality Cancelled 07/12/22 21:02 Ur Random Microalbumin 6 ug/dL (0-20) 07/12/22 08:26 Ur Random Sodium 146 mmol/L 07/12/22 08:26 Ur Random Potassium 38 mmol/L 07/12/22 08:26 Ur Random Chloride 144 mmol/L 07/12/22 08:26 Urine Creatinine 25 mg/dL (39-259) L 07/12/22 08:26 Urine Creatinine 25 mg/dL (39-259) L 07/12/22 08:26 Microalb/Creat Ratio 240 mg/dL (0-20) H 07/12/22 08:26 Vancomycin Trough 14.1 ug/mL (10-15) 07/14/22 03:56 Ethyl Alcohol < 10 mg/dL (0-10) 07/12/22 19:39 Coronavirus 229E (PCR) Not detected (NOT DETECT) 07/12/22 21:02 SARS-CoV-2 (PCR) Not detected (NOT DETECT) 07/12/22 21:02 Blood Type O Positive 07/13/22 05:16 Rho(D) Type Positive 07/13/22 05:16 Antibody Screen Negative 07/13/22 05:16 Crossmatch See Detail 07/13/22 05:16 Vitals Last Vital Signs Temp 98.1 F 07/15/22 04:00 Pulse 76 07/15/22 12:00 Resp 16 07/15/22 12:00 BP 130/78 07/15/22 12:00 Pulse Ox 94 07/15/22 12:00 O2 Del Method 07/15/22 12:00 O2 Flow Rate 2 07/15/22 10:43 Discharge Plan Discharge Patient Disposition: Home Condition: Stable Prescriptions: New metronidazole 500 mg Tablet 500 mg PO TID Qty: 18 0RF gabapentin 100 mg Capsule 100 mg PO TID Qty: 90 0RF Protonix 40 mg tablet,delayed release (DR/EC) 40 mg PO BID Qty: 60 0RF levofloxacin 750 mg tablet 750 mg PO DAILY 6 Days Qty: 6 0RF ferrous sulfate 325 mg (65 mg iron) tablet,delayed release (DR/EC) 325 mg PO BID Qty: 60 0RF Continued albuterol sulfate 90 mcg/actuation HFA aerosol inhaler 2 puff INHALATION Q4H PRN (Reason: Shortness Of Breath) aspirin [Adult Aspirin Regimen] 81 mg tablet,delayed release (DR/EC) 81 mg PO DAILY atorvastatin 40 mg tablet 40 mg PO DAILY baclofen 20 mg tablet See Rx Instructions .ROUTE .COMPLEX Rx Instructions: 3 TABS IN AM, 4 TABS@ 4PM, AND 2 TABS AT BEDTIME bupropion HCl 150 mg tablet extended release 24 hr 150 mg PO BID clopidogrel 75 mg tablet 75 mg PO DAILY fluticasone propionate [Flonase Allergy Relief] 50 mcg/actuation spray,suspension 2 spray INTRANASAL DAILY PRN (Reason: Allergic Symptoms) gabapentin 300 mg capsule 600 mg PO TID metformin 1,000 mg tablet extended release 24hr 1,000 mg PO BID methenamine hippurate 1 gram tablet 1 gm PO BID ascorbate calcium (vitamin C) 500 mg tablet 500 mg PO BID paroxetine HCl 20 mg tablet 20 mg PO DAILY amitriptyline 10 mg tablet 10 mg PO BID zinc 50 mg tablet 50 mg PO DAILY d-mannose Powder 600 ea PO DAILY Rx Instructions: WITH CRANBERRY AND DANDELION. 600MG BID multivitamin Tablet 1 tab PO DAILY vitamin A 2,400 mcg Capsule 2,400 mcg PO DAILY Vitamin D3 25 mcg (1,000 unit) Capsule 25 mcg PO DAILY Probiotic 15 billion cell Capsule 1 cap PO DAILY coenzyme Q10 50 mg Capsule 50 mg PO DAILY Rx Instructions: 200MG 1 DAILY Discontinued ibuprofen 200 mg capsule 200 mg PO DAILY PRN (Reason: fever or pain) esomeprazole magnesium [Nexium] 20 mg capsule,delayed release(DR/EC) 20 mg PO DAILY Discharge Orders: Discharge Order (Routine); Ordered 07/15/22 Ordered By: Bonifacio Vásquez Referrals: Johana Vásquez MD [Staff Physician] - 07/24/22 4:20 pm [facility], [Staff Physician] - 07/17/22 8:30 am (follow up chronic [phone]) Patient Instructions: Anemia, Iron Supplements (By mouth) (Duofer, Fe-20, Bifera, Royal-Iron), Metronidazole (By mouth), Gabapentin (By mouth), Levofloxacin (By mouth), Pantoprazole (By mouth), Urinary Tract Infection in Men (GEN), Opioid Safety, Pneumonia Stoplight, Pneumonia - Viral Activity Restrictions/Additional Instructions: Follow-up with primary care provider in 3 to 5 days Referral to wound care clinic CBC, BMP on follow-up with primary care provider Stop anti-inflammatories Finish 6 days of antibiotics as prescribed Keep Olivas in at discharge Consider chest repeat CT 6 months for follow-up of nodule Discharge Attestations Time Spent in Discharge Care*: greater than 30 min Quality Metrics Clinical Quality Measures [ No reported AMI, CVA or VTE this stay] Coding Level of Care Code Acute g FW NM note Diagnoses Acute respiratory failure with hypoxia J96.01 Anemia D64.9 Hyponatremia E87.1 Community acquired pneumonia J18.9 Sepsis A41.9 ASHD (arteriosclerotic heart disease) I25.10 Recurrent UTI N39.0 Pressure ulcers of skin of multiple topographic sites L89.90
[2022-07-16 09:18] LABS: Osmolality Serum 267 mOsm/kg (278-305)
== END 2022-07-15 18:30 | disposition home or self-care (01) | DRG 871 ==
LOC: ER 20:11 → ICU 21:48 → MEDSURG 07-14 13:20
PROVIDERS: Internal Medicine; Admitting Provider Internal Medicine; Emergency Provider Emergency Medicine; Visit Provider Internal Medicine
DX: A41.9 Sepsis, unspecified organism (principal); J18.9 Pneumonia, unspecified organism; L89.314 Pressure ulcer of right buttock, stage 4; L89.214 Pressure ulcer of right hip, stage 4; L89.313 Pressure ulcer of right buttock, stage 3; L89.213 Pressure ulcer of right hip, stage 3; G82.20 Paraplegia, unspecified; E87.1 Hypo-osmolality and hyponatremia; I25.10 Atherosclerotic heart disease of native coronary artery without angina pectoris; D50.9 Iron deficiency anemia, unspecified; I25.2 Old myocardial infarction; Z99.3 Dependence on wheelchair; Z96.0 Presence of urogenital implants; N31.9 Neuromuscular dysfunction of bladder, unspecified; Z87.440 Personal history of urinary (tract) infections; Z87.891 Personal history of nicotine dependence; L89.150 Pressure ulcer of sacral region, unstageable; M62.838 Other muscle spasm; Z79.82 Long term (current) use of aspirin; Z79.51 Long term (current) use of inhaled steroids
CPT/HCPCS: 36415; 36430; 36600; 70450; 71045; 71275; 76882; 80048; 80053; 80202; 80307; 81001; 82044; 82274; 82436; 82570; 82607; 82728; 82803; 83540; 83550; 83605; 83735; 83880; 83930; 84100; 84133; 84145; 84295; 84300; 84443; 84550; 85018; 85025; 85045; 85378; 85999; 86140; 86850; 86900; 86920; 87040; 87086; 87635; 93005; 93306; 93970; 94640; 94664; 96365; 96367; 99285; C9113; J1756; J1940; J1956; J3370; J3490; J7030; P9016; Q9967

== ENCOUNTER → 2022-07-22 09:17 | Outpatient (BNVA) | payer MEDICARE, MEDICAID, SELFPAY | PROVIDERS: Visit Provider Nurse Practitioner Family | DX: D64.9 Anemia, unspecified (principal); I10 Essential (primary) hypertension; E61.1 Iron deficiency; E11.9 Type 2 diabetes mellitus without complications; J18.9 Pneumonia, unspecified organism; L89.159 Pressure ulcer of sacral region, unspecified stage; B37.49 Other urogenital candidiasis | CPT/HCPCS: 80053; 83036; 83550; 85025 ==

== ENCOUNTER → 2022-08-06 14:45 | Outpatient (BNVA) | payer MEDICARE, MEDICAID, SELFPAY | PROVIDERS: Visit Provider Thoracic Surgery (Cardiothoracic Vascular Surgery) | DX: Z01.89 Encounter for other specified special examinations (principal) | CPT/HCPCS: 87077; 87186 ==

== ENCOUNTER 2022-08-11 07:41 | Outpatient (CLI) | payer MEDICARE, MEDICAID, SELFPAY ==
--- NOTE | 2022-08-11 08:15 | CT_ITS ---
WS: [id number] CT ABDOMEN PELVIS TECHNIQUE: Contrast-enhanced CT of the abdomen and pelvis with coronal and sagittal reformatted image s. 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 FINDINGS: Decubitus ulcer RIGHT parasagittal buttocks. This is new since January 11, 2020. Ulcer tract tract exte nds down to the RIGHT ischium posteriorly with associated bony sclerosis and cortical irregularity courtney spicious for osteomyelitis. This is progressed compared to previous. Peripheral enhancing fluid colle ction consistent with abscess extending from the ulceration to the fascia. This measures approximatel y 7.1 x 4.9 x 6.6 cm. Chronic ulceration overlying the RIGHT lateral hip is unchanged and has a chronic appearance. No unde rlying fluid collection or inflammation. Myositis ossificans both hips. Olivas catheter. Lung bases are well aerated. Hepatomegaly. Diffuse fatty infiltration liver. Normal s pleen. Normal GE junction. Normal portal vein and splenic vein. Normal pancreatic parenchymal enhance ment. Normal gallbladder. Adrenal glands are normal. Normal renal parenchymal enhancement. No hydrone phrosis. Normal caliber abdominal aorta. IVC filter. Normal sigmoid colon. No evidence of high-grade small or large bowel obstruction. Tiny fat-containing umbilical hernia. Prior postoperative changes pedicle screw fixation L4-S1. Decompressive laminectom y defects. Grade 1 anterolisthesis L5 on S1.0 CT/CT abdomen pelvis w con* [id number] IMPRESSION: 1. RIGHT dorsal buttock decubitus ulcer with peripherally enhancing fluid asim ection consistent with abscess extending to the RIGHT ischium dorsally. Suspect ed osteomyelitis involving the RIGHT ischial dorsally appears new from previous . Fluid collection measures 7.1 x 4.8 x 6.6 cm. 2. Chronic ulceration overlying the RIGHT lateral hip is unchanged. No inflamm atory changes or fluid collection in this area. Myositis ossificans both hips. 3. Diffuse fatty infiltration liver. 4. IVC filter. 5. No other significant changes compared to previous.
[2022-08-11] MEDS: iohexol 350 mg/mL 100 mL Btl IV (08:45)
== END 2022-08-11 07:42 ==
PROVIDERS: PCP Nurse Practitioner Family; Visit Provider Thoracic Surgery (Cardiothoracic Vascular Surgery)
DX: I96 Gangrene, not elsewhere classified (principal); L89.893 Pressure ulcer of other site, stage 3; L89.152 Pressure ulcer of sacral region, stage 2; L89.314 Pressure ulcer of right buttock, stage 4
CPT/HCPCS: 11042; 74177; 87070; 99213; A6212; A6446

== ENCOUNTER 2022-08-12 14:48 | Emergency (ER) | payer MEDICARE, MEDICAID, SELFPAY ==
[2022-08-12 14:52] VITALS: BMI 39.0
[2022-08-12 14:56] VITALS: BP 113/73; PULSE 111; RESP 18; TEMP 36.8; O2SAT 96
--- NOTE | 2022-08-12 16:27 | W.ED.WOUNDLC ---
HPI - Wound/Laceration General: Chief Complaint: Wound/Laceration Stated Complaint: fever, has sore Time Seen by Provider: 08/12/22 15:04 Source: patient Mode of arrival: ambulatory Limitations: no limitations History of Present Illness: 52-year-old male presents emergency room with his . 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 Recently on he seen Dr. Roy at the wound clinic and had a CT done. CT came back there is a large fluid-filled area adjacent to bone there is exposed bone according to Dr. Roy's last wound care clinic note. Patient was directed to the ER by the nurse practitioner they usually see. He has not had any fever sweats or chills. He does have a significant history of coronary artery disease has not had any chest pain recently. He was recently hospitalized for pneumonia with sepsis he also had anemia and hyponatremia all of which were treated those notes were reviewed. Onset (ago): week(s) Place: home Context: other (Decubitus ulcer secondary to immobilization from spinal cord injury) Associated symptoms: Denies chills, fever(s), foreign body sensation, inability to move, nausea, numbness, pain, syncope or vomiting Review of Systems Const: Reports: fatigue; Denies: fever(s), chills or malaise ENMT: Denies: throat pain, ear or mastoid pain, nasal discharge or nasal congestion Card: Denies: chest pain, palpitations, irregular heart rhythm or syncope Resp: Denies: dyspnea, productive cough or non-productive cough GI: Denies: abdominal pain, nausea or vomiting : Denies: flank pain, difficulty urinating, dysuria, urinary frequency or urinary urgency Skin/Breast: Denies: rash or pruritus PFS ED PFSH: Medical History ASHD (arteriosclerotic heart disease) Chronic indwelling Olivas catheter History of bladder stone CYSTOLITHOLAPAXY Hyperlipidemia Hypertension 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-6) Recurrent UTI Retention of urine due to occlusion of Olivas catheter Surgical History History of cervical spinal surgery History of lumbar surgery Family History Mother Hypertension Father Arthritis Social History Smoking and tobacco status: never smoked Alcohol intake: never Adopted: No Caregiver/support person: No Lives independently: No Household members: significant other Marital status: Current occupational status: disabled History of recent travel: No Physical Exam Const: COMMON NORMALS: no acute distress GENERAL APPEARANCE: cooperative and comfortable ORIENTATION/CONSCIOUSNESS: Yes awake, Yes oriented to person, Yes oriented to place and Yes oriented to time HENMT: COMMON NORMALS: normocephalic, atraumatic and hearing grossly normal bilaterally HEAD & SCALP: normocephalic and atraumatic Resp: COMMON NORMALS: normal respiratory effort, No retractions, No use of accessory muscles and clear to auscultation bilaterally AUSCULTATION: clear to auscultation bilaterally Cardio: COMMON NORMALS: regular rate, regular rhythm and No murmurs present (Cardio) RATE: regular rate RHYTHM: regular rhythm GI: COMMON NORMALS: Soft to palpation and No hepatosplenomegaly present AUSCULTATION: Yes normoactive bowel sounds PALPATION: Yes Soft to palpation, No Tenderness to palpation present (GI), No Guarding due to palpation present (GI) and Yes No hepatosplenomegaly present Back/Pelvis: OTHER: Ulcers overlying the sacrum 1 at the point of the sacrum is ray but it does have some tunneling and then over the right ischial tuberosity tunnels in both foul-smelling Extremity: COMMON NORMALS: normal to inspection, capillary refill normal, no clubbing, cyanosis or edema, no calf tenderness and no pedal edema Neuro: SENSORIUM/ORIENTATION: Yes oriented to person, Yes oriented to place and Yes oriented to time Skin: COMMON NORMALS: no rashes or lesions noted GENERAL SKIN EXAM: no rashes or lesions noted Course Vital Signs: Vital signs: Vital Signs Temperature 98.2 F 08/12/22 14:56 Pulse Rate 113 H 08/12/22 17:29 Respiratory Rate 20 H 08/12/22 17:29 Blood Pressure 169/107 08/12/22 17:29 Pulse Oximetry 97 08/12/22 17:29 Oxygen Delivery Me thod 08/12/22 14:56 MDM - Wound/Laceration Medical Decision Making Discussed with Dr. Roy. He has been seeing the patient in the wound care clinic. Also reviewed Old notes and CT. This abscess has been present for some time Dr. Roy felt that an attempt at long-term antibiotics would be better prior to initiating surgical procedure. We made arrangements for him to have a PICC line placed tomorrow and then he has an appointment with Dr. Roy shortly after that. Once the PICC line is placed plan is for 6 to 8 weeks of antibiotics and then reassess. Medical Records I reviewed the patient's medical records. Lab Data I reviewed the patient's lab results. : 08/12/22 16:40 08/12/22 16:40 Laboratory Results WBC 11.5 10^3/uL (4.0-10.0) H 08/12/22 16:40 RBC 5.52 10^6/uL (4.1-5.3) H 08/12/22 16:40 Hgb 10.4 g/dL (11.7-16.6) L 08/12/22 16:40 Hct 38.7 % (42.0-52.0) L 08/12/22 16:40 MCV 70.1 fl (80-94) L 08/12/22 16:40 MCH 18.8 pg (28.0-34.0) L 08/12/22 16:40 MCHC 26.9 g/dL (30.0-36.0) L 08/12/22 16:40 RDW 25.3 % (12.1-15.1) H 08/12/22 16:40 Plt Count 523 10^3/cmm (130-400) H 08/12/22 16:40 MPV 9.1 fL (7.4-10.4) 08/12/22 16:40 Neut % (Auto) 71.6 % 08/12/22 16:40 Lymph % (Auto) 14.0 % 08/12/22 16:40 [place] % (Auto) 11.2 % 08/12/22 16:40 Eos % (Auto) 2.1 % 08/12/22 16:40 Baso % (Auto) 0.8 % 08/12/22 16:40 Neut # (Auto) 8.21 10^3/uL (1.8-7.7) H 08/12/22 16:40 Lymph # (Auto) 1.6 10^3/uL (0.8-4.8) 08/12/22 16:40 [place] # (Auto) 1.3 10^3/uL (0.2-0.9) H 08/12/22 16:40 Eos # (Auto) 0.2 10^3/uL (0.0-0.8) 08/12/22 16:40 Baso # (Auto) 0.1 10^3/uL (0.0-0.1) 08/12/22 16:40 Nucleated RBC % (auto) 0 % 08/12/22 16:40 Nucleated RBCs # 0.0 /100WBC 08/12/22 16:40 ESR 92 mm/hr (0-10) H 08/12/22 16:40 Sodium 136 mmol/L (136-145) 08/12/22 16:40 Potassium 4.1 mmol/L (3.5-5.1) 08/12/22 16:40 Chloride 97 mmol/L (98-107) L 08/12/22 16:40 Carbon Dioxide 26 mmol/L (22-29) 08/12/22 16:40 Anion Gap 17.1 (5-19) 08/12/22 16:40 BUN 12 mg/dL (6-20) 08/12/22 16:40 Creatinine 0.3 mg/dL (0.7-1.2) L 08/12/22 16:40 GFR Calculation 313.6 mL/min (90-130) H 08/12/22 16:40 Glucose 255 mg/dL (65-115) H 08/12/22 16:40 Calculated Osmolality 290 mOsm/kg (285-295) 08/12/22 16:40 Calcium 9.3 mg/dL (8.5-10.5) 08/12/22 16:40 Total Bilirubin 0.2 mg/dL (0.15-1.2) 08/12/22 16:40 AST 12 U/L (0-40) 08/12/22 16:40 ALT 15 U/L (0-41) 08/12/22 16:40 Alkaline Phosphatase 90 U/L (40-130) 08/12/22 16:40 C-Reactive Protein 181.0 mg/L (0.0-4.9) H 08/12/22 16:40 Total Protein 7.8 g/dL (6.6-8.7) 08/12/22 16:40 Albumin 3.4 g/dL (3.5-5.2) L 08/12/22 16:40 Globulin 4.4 g/dL (1.3-4.6) 08/12/22 16:40 Discharge Plan Discharge Patient Disposition: Home Clinical Impression: Pressure ulcers of skin of multiple topographic sites, Pressure ulcer of coccygeal region, Chronic osteomyelitis Condition: Stable Prescriptions: No Action albuterol sulfate 90 mcg/actuation HFA aerosol inhaler 2 puff INHALATION Q6H PRN (Reason: Shortness Of Breath) aspirin [Adult Aspirin Regimen] 81 mg tablet,delayed release (DR/EC) 81 mg PO QAM atorvastatin 40 mg tablet 40 mg PO BEDTIME baclofen 20 mg tablet See Rx Instructions .ROUTE .COMPLEX Rx Instructions: 3 TABS IN AM, 4 TABS@ 4PM, AND 2 TABS AT BEDTIME clopidogrel 75 mg tablet 75 mg PO QAM fluticasone propionate [Flonase Allergy Relief] 50 mcg/actuation spray,suspension 2 spray INTRANASAL DAILY PRN (Reason: Allergy Symptoms) gabapentin 300 mg capsule 600 mg PO TID methenamine hippurate 1 gram tablet 1 gm PO BID ascorbate calcium (vitamin C) 500 mg tablet 500 mg PO BID paroxetine HCl 20 mg tablet 20 mg PO DAILY amitriptyline 10 mg tablet 10 mg PO BID zinc 50 mg tablet 50 mg PO BEDTIME multivitamin Tablet 1 tab PO DAILY vitamin A 2,400 mcg Capsule 2,400 mcg PO BEDTIME cholecalciferol (vitamin D3) [Vitamin D3] 25 mcg (1,000 unit) Capsule 25 mcg PO BEDTIME Probiotic 15 billion cell Capsule 1 cap PO BID bupropion HCl 150 mg tablet sustained-release 12 hr 150 mg PO BID metformin 1,000 mg tablet 1,000 mg PO BID Nexium 20 mg Capsule,Delayed Release(Dr/Ec) 20 mg PO DAILY CoQ-10 100 mg Capsule 100 mg PO BEDTIME ferrous gluconate 324 mg (38 mg iron) Tablet 324 mg PO DAILY@16 d-mannose 500 mg Capsule 500 mg PO BID Blood Builder 1 tab PO DAILY@16 Discharge Orders: Discharge ED (Routine); Ordered 08/12/22 Ordered By: Raul Pearson Referrals: Marianne Andujar FNP [Primary Care Provider] - Discharge Diet: Usual diet Discharge Activity: Resume usual activity Patient Instructions: Opioid Safety, Pain Management Activity Restrictions/Additional Instructions: Return to outpatient surgery tomorrow for PICC line to be placed at 1:00, you will need to arrive earlier than that to get registered. Keep your appoint with Dr. Roy tomorrow at 3 and he will make arrangements for long-term antibiotics for this. Coding Level of Care Code ED Photographic Restorer for Chg Fwd Exam Detailed
[2022-08-12 16:50] LABS: Basophils # 0.1 10^3/uL (0.0-0.1); Basophils % 0.8 %; Eosinophils # 0.2 10^3/uL (0.0-0.8); Eosinophils % 2.1 %; Hematocrit 38.7 % (42.0-52.0); Hemoglobin 10.4 g/dL (11.7-16.6); Lymphocytes # 1.6 10^3/uL (0.8-4.8); Mean Corpuscular HGB Conc 26.9 g/dL (30.0-36.0); Mean Corpuscular Hemoglobin 18.8 pg (28.0-34.0); Mean Corpuscular Volume 70.1 fl (80-94); Mean Platelet Volume 9.1 fL (7.4-10.4); Monocytes # 1.3 10^3/uL (0.2-0.9); Monocytes % 11.2 %; Neutrophils # 8.21 10^3/uL (1.8-7.7); Neutrophils % 71.6 %; Nucleated Red Blood Cells % 0 %; Platelet Count 523 10^3/cmm (130-400); Red Blood Count 5.52 10^6/uL (4.1-5.3); Red Cell Distribution Width 25.3 % (12.1-15.1); White Blood Count 11.5 10^3/uL (4.0-10.0)
[2022-08-12 16:52] LABS: Erythrocyte Sedimentation Rate 92 mm/hr (0-10)
--- NOTE | 2022-08-12 17:28 | PC.NURSE ---
PRIOR TO DC DR. WISDOM INFORMED OF FULL SET OF VS VERBALIZED UNDERSTANDING AND VO TO CONTINUE WITH DC.
[2022-08-12 17:29] VITALS: BP 169/107; PULSE 113; RESP 20; O2SAT 97
[2022-08-12 17:30] LABS: Alanine Aminotransferase 15 U/L (0-41); Albumin Level 3.4 g/dL (3.5-5.2); Alkaline Phosphatase 90 U/L (40-130); Anion Gap 17.1 (5-19); Aspartate Amino Transferase 12 U/L (0-40); Blood Urea Nitrogen 12 mg/dL (6-20); Calcium 9.3 mg/dL (8.5-10.5); Carbon Dioxide 26 mmol/L (22-29); Chloride 97 mmol/L (98-107); Globulin 4.4 g/dL (1.3-4.6); Glomerular Filtration Rate 313.6 mL/min (90-130); Glucose 255 mg/dL (65-115); Osmolality Calculated 290 mOsm/kg (285-295); Potassium 4.1 mmol/L (3.5-5.1); Sodium 136 mmol/L (136-145); Total Bilirubin 0.2 mg/dL (0.15-1.2); Total Protein 7.8 g/dL (6.6-8.7)
== END 2022-08-12 17:30 | disposition home or self-care (01) ==
PROVIDERS: Emergency Provider Family Medicine; PCP Nurse Practitioner Family
DX: L89.151 Pressure ulcer of sacral region, stage 1 (principal); M86.68 Other chronic osteomyelitis, other site; Z79.82 Long term (current) use of aspirin
CPT/HCPCS: 80053; 85025; 85651; 86140; 87040; 99283

== ENCOUNTER 2022-08-13 11:01 | Inpatient (IN) | payer MEDICARE, MEDICAID, SELFPAY ==
--- NOTE | 2022-08-13 11:01 | XRR_ITS ---
PROCEDURE INFORMATION: Exam: XR Chest Exam date and time: 08/13/2022 5:39 PM Age: 52 years old Clinical indication: Other: Fever TECHNIQUE: Imaging protocol: Radiologic exam of the chest. Views: 1 view. COMPARISON: CR (CHEST, ) 07/13/2022 9:38 AM FINDINGS: Lungs: Emphysematous changes. Bibasilar right greater left atelectasis versus infiltrate. Pleural spaces: Unremarkable. No pleural effusion. No pneumothorax. Heart/Mediastinum: Unremarkable. No cardiomegaly. Bones/joints: Unremarkable. XR/XR chest 1V portable [id number] IMPRESSION: 1. Emphysematous changes. 2. Bibasilar right greater left atelectasis versus infiltrate.
--- NOTE | 2022-08-13 12:07 | P.HP_ITS ---
Providers/Chief Complaint Admitting Physician: Rj Roy MD Primary Care Provider: JC Fonseca Chief Complaint: Gluteal Ischial Abcess History of Present Illness David Chen is a 52 year old male with quadriplegia for over 20 years after a fall and nearly completely insensate below the mid chest level. He has been followed in wound care services most recently for right ischial wound and right trochanteric wound. The ischial wound developed in late April. He also has a right mid sacral wound. I originally saw him a few days ago on August 06 when he represented to wound care services. Because of the chronicity and depth of the right gluteal wound I recommended a CT scan to be performed. I do note that he had a soft tissue ultrasound of the right gluteal region performed on July 14 and no abscess was identified. His subsequent CT scan was completed 2 days ago and reveals evidence for osteomyelitis of the right ischium and what appears to be a periosseous abscess/phlegmon. I have reviewed this study with Dr. Klein, and if required, he feels that ultrasound-guided drain or aspiration may be placed. The material appears to be heterogeneous and I suspect most probably represents a phlegmon and not complete abscess. Patient's caregiver reports daily fevers though during an ER visit yesterday upon recommendation of his primary care provider, he was reported to be afebrile, with a reported temperature of 98.2 Fahrenheit. As well, we have not reported temperatures during his recent wound care visit. He was hospitalized in early July for what was felt to represent community-acquired pneumonia and was discharged on July 15 from the hospitalist service. During that admission, he was initiated on vancomycin, metronidazole, and aztreonam. He has no respiratory complaints today. He does report anaphylaxis to penicillin. I have recommended PICC line placement and initiation of vancomycin pending further cultures from the material in this nanda-ischial region, if it can be accessed. I would also recommend coverage with metronidazole for possible anaerobic organisms. It is reported that he cannot take oral antibiotics due to GI upset. He reports allergies (anaphylaxis) to penicillins and allergy as well to sulfa. Wound culture was taken at the time of his clinic visit of August 06 and this returned E. coli which was resistant to Levaquin and ciprofloxacin. Apparently, there are no immediately available home health services to assist with PICC line management and home antibiotics, that we are continue to inv estigate this. He has known cardiac disease with prior myocardial infarction and subsequent arrest. He had an ST elevated MA in March 2017 with PCI to the RCA with drug- eluting stent. Transthoracic echo of July 12, 2022 revealed an EF of 50 to 55% Review of Systems Const: Reports: fever(s) Resp: Reports: dyspnea; Denies: productive cough or hemoptysis GI: Reports: nausea, dysphagia and diarrhea; Denies: hematemesis Musc: Reports: muscle cramps Skin/Breast: Reports: other (Chronic wounds of the right trochanteric, sacral, right gluteal region) Neuro: Reports: headache(s) and other (Quadriplegia) Psych: Reports: anxiety All/Imm: Reports: throat swelling Medications/Allergies Home Medications Medication Instructions Recorded Confirmed Last Taken Type albuterol sulfate 90 mcg/actuation 2 puff inhalation Q4H PRN 11/17/19 07/22/22 Unknown History aerosol inhaler Shortness Of Breath amitriptyline 10 mg tablet 10 mg PO BID 11/17/19 07/22/22 Unknown History ascorbate calcium (vitamin C) 500 500 mg PO BID 11/17/19 07/22/22 Unknown History mg tablet aspirin 81 mg tablet,delayed 81 mg PO DAILY 11/17/19 07/22/22 Unknown History release (Adult Aspirin Regimen) atorvastatin 40 mg tablet 40 mg PO DAILY 11/17/19 07/22/22 Unknown History baclofen 20 mg tablet See Rx Instructions .Route .COMPLEX 11/17/19 07/22/22 Unknown History bupropion HCl 150 mg 24 hr tablet, 150 mg PO BID 11/17/19 07/22/22 Unknown History extended release clopidogrel 75 mg tablet 75 mg PO DAILY 11/17/19 07/22/22 Unknown History d-mannose 600 ea PO DAILY 11/17/19 07/22/22 Unknown History fluticasone propionate 50 2 spray intranasal DAILY PRN 11/17/19 07/22/22 Unknown History mcg/actuation nasal Allergic Symptoms spray,suspension (Flonase Allergy Relief) gabapentin 300 mg capsule 600 mg PO TID 11/17/19 07/22/22 Unknown History metformin 1,000 mg tablet,extended 1,000 mg PO BID 11/17/19 07/22/22 Unknown History release 24hr methenamine hippurate 1 gram tablet 1 gm PO BID 11/17/19 07/22/22 Unknown History paroxetine HCl 20 mg tablet 20 mg PO DAILY 11/17/19 07/22/22 Unknown History zinc 50 mg tablet 50 mg PO DAILY 11/17/19 07/22/22 Unknown History Lactobacillus acidophilus and 1 cap PO DAILY 07/13/22 07/22/22 Unknown History rhamnosus 15 billion cell capsule (Probiotic) cholecalciferol (vitamin D3) 25 25 mcg PO DAILY 07/13/22 07/22/22 Unknown History mcg (1,000 unit) capsule (Vitamin D3) coenzyme Q10 50 mg capsule 50 mg PO DAILY 07/13/22 07/22/22 Unknown History multivitamin 1 tab PO DAILY 07/13/22 07/22/22 Unknown History vitamin A 2,400 mcg capsule 2,400 mcg PO DAILY 07/13/22 07/22/22 Unknown History collagenase clostridium histo. 250 1 applic topical DAILY #30 grams 07/15/22 07/22/22 Unknown Rx unit/gram topical ointment (Santyl) ferrous sulfate 325 mg (65 mg 325 mg PO BID #60 tabs 07/15/22 07/22/22 Unknown Rx iron) tablet,delayed release gabapentin 100 mg capsule 100 mg PO TID #90 caps 07/15/22 07/22/22 Unknown Rx metronidazole 500 mg tablet 500 mg PO TID #18 tabs 07/15/22 07/22/22 Unknown Rx pantoprazole 40 mg tablet,delayed 40 mg PO BID #60 tabs 07/15/22 07/22/22 Unknown Rx release (Protonix) fluconazole 150 mg tablet 150 mg PO Q3D 2 doses #2 tabs 07/22/22 07/22/22 Unknown Rx (Diflucan) Allergies Allergy/AdvReac Type Severity Reaction Status Date / Time Penicillins Allergy THROAT Verified 07/22/22 09:54 SWELLS SHUT Sulfa (Sulfonamide Allergy HIVES Verified 07/22/22 09:54 Antibiotics) PFSH Acute PFSH: Medical History ASHD (arteriosclerotic heart disease) Chronic indwelling Olivas catheter History of bladder stone CYSTOLITHOLAPAXY Hyperlipidemia Hypertension 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-6) Recurrent UTI Retention of urine due to occlusion of Olivas catheter Surgical History History of cervical spinal surgery History of lumbar surgery Family History Mother Hypertension Father Arthritis Social History Smoking and tobacco status: never smoked Alcohol intake: never Adopted: No Caregiver/support person: No Lives independently: No Household members: significant other Marital status: Current occupational status: disabled History of recent travel: No Vitals/I&O/Wt Weight last 48 hrs Weight 215 lb Physical Exam Const: COMMON NORMALS: no acute distress, average body habitus and patient oriented x3; limitations (Incomplete quadriplegia) HENMT: COMMON NORMALS: normocephalic, atraumatic, hearing grossly normal bilaterally, external ears normal and Normal external nose present Eye: COMMON NORMALS: Equal, round and reactive pupils present, EOMs intact bilaterally, conjunctivae normal and no scleral icterus Neck/C-Spine: COMMON NORMALS: No carotid bruits Chest: COMMONS NORMALS: normal palpation of entire chest wall Resp: COMMON NORMALS: normal respiratory effort, No use of accessory muscles and clear to auscultation bilaterally Cardio: COMMON NORMALS: regular rate, regular rhythm, S1 normal heart sound present, No murmurs present (Cardio) and No rub (Cardio) GI: COMMON NORMALS: Normal to inspection, nondistended, normoactive bowel sounds present Back/Pelvis: OTHER: Right gluteal wound measures 2.5 x 2 x 5 cm. There is palpable bone at the base of the wound. No jon purulence is noted. I cannot palpated actual abscess though there was thickened tissue which may be consistent with a phlegmon. Right trochanteric wound measures 3 x 2 x 1 cm. This does extend down to fascia with no exposed bone. Mid sacral wound measures 2 x 1 x 2.6 cm. This does extend down to fascia without obvious bone exposure. Extremity: OTHER: There is a right trochanteric wound Neuro: OTHER: Incomplete quadriplegia. Psych: COMMON NORMALS: mental status grossly normal, Normal thought process present and speech normal Data Other Labs: CRP, procalcitonin, sed rate, CMP A&P Assessment and plan (1) Pressure ulcers of skin of multiple topographic sites: Given the CT scan findings of 2 days ago, I recommend empirically initiating antibiotics to include vancomycin and metronidazole for mixed joseph coverage, pending appropriate sampling if possible and directed culture results. Also recommend we initiate a PICC line for planned outpatient antibiotic therapy for what appears to be radiographically confirmed osteomyelitis of the right ischium. As the patient resides in [place], we will attempt to arrange appropriate services for assistance and monitoring of outpatient antibiotic therapy. For long-term management, I will have a conversation with Mr. Chen and family concerning consideration for skilled care such as [facility] which has a wide range of options to assist with such pressure wounds. This includes availability for inpatient wound management, plastic surgery evaluations, infectious disease care, and appropriate equipment such wounds related to his long-term neurologic deficits. Attestations Medical Necessity Statement*: Chronic right gluteal wound with evidence for ischial osteomyelitis. Time Spent in Patient Care: Greater than 35 minutes Coding Level of Care Code New Pt Acute Tubing Tester for [facility] Fwd Patient Type New Medical Decision Making Moderate Complexity Diagnoses Pressure ulcers of skin of multiple topographic sites L89.90
[2022-08-13 17:21] VITALS: BP 98/53; PULSE 119; RESP 20; TEMP 37.1; O2SAT 96
--- NOTE | 2022-08-13 17:28 | PC.NURSE ---
AIR MATTRESS ORDERED. CONFIRMATION NUMBER [id number]
[2022-08-13 17:40] VITALS: BMI 34.8
[2022-08-13 17:45] LABS: Glucose Point of Care 229 mg/dL (70-110)
[2022-08-13 18:12] LABS: Basophils # 0.1 10^3/uL (0.0-0.1); Basophils % 0.6 %; Eosinophils # 0.3 10^3/uL (0.0-0.8); Eosinophils % 1.7 %; Hematocrit 37.9 % (42.0-52.0); Hemoglobin 10.4 g/dL (11.7-16.6); Lymphocytes % 5.2 %; Mean Corpuscular HGB Conc 27.4 g/dL (30.0-36.0); Mean Corpuscular Volume 69.3 fl (80-94); Mean Platelet Volume 9.6 fL (7.4-10.4); Monocytes # 1.9 10^3/uL (0.2-0.9); Monocytes % 9.7 %; Neutrophils # 15.64 10^3/uL (1.8-7.7); Neutrophils % 82.3 %; Nucleated Red Blood Cells % 0 %; Platelet Count 516 10^3/cmm (130-400); Red Blood Count 5.47 10^6/uL (4.1-5.3); Red Cell Distribution Width 25.2 % (12.1-15.1)
[2022-08-13 18:16] LABS: Erythrocyte Sedimentation Rate > 130 mm/hr (0-10)
[2022-08-13 18:33] LABS: NT Pro B Type Natriuretic Pept 688 pg/mL (0-125); Procalcitonin 0.24 ng/mL (0-0.5)
[2022-08-13 18:44] LABS: Alanine Aminotransferase 14 U/L (0-41); Albumin Level 2.9 g/dL (3.5-5.2); Alkaline Phosphatase 89 U/L (40-130); Anion Gap 18.8 (5-19); Aspartate Amino Transferase 11 U/L (0-40); Blood Urea Nitrogen 12 mg/dL (6-20); Calcium 8.8 mg/dL (8.5-10.5); Carbon Dioxide 21 mmol/L (22-29); Chloride 93 mmol/L (98-107); Globulin 4.4 g/dL (1.3-4.6); Glucose 205 mg/dL (65-115); Magnesium 1.7 mg/dL (1.7-2.3); Osmolality Calculated 274 mOsm/kg (285-295); Phosphorus 3.6 mg/dL (2.5-4.5); Potassium 3.8 mmol/L (3.5-5.1); Sodium 129 mmol/L (136-145); Total Bilirubin 0.2 mg/dL (0.15-1.2); Total Protein 7.3 g/dL (6.6-8.7)
[2022-08-13] MEDS: HYDROcodone-acetaminophen 5-325 mg Tablet 1 TAB PO (18:47)
[2022-08-13] MEDS: atorvastatin 40 mg Tablet PO (18:48)
[2022-08-13] MEDS: insulin lispro 100 unit/1 mL SUBCUT ×2 (18:48→21:38)
[2022-08-13] MEDS: ascorbic acid 500 mg Tablet PO (18:48)
--- NOTE | 2022-08-13 18:54 | PC.NURSE ---
pt requested ultra sound guided iv ...refused all other iv insertion options
[2022-08-13 19:56] VITALS: PULSE 108; RESP 18; O2SAT 97
[2022-08-13 20:00] VITALS: BP 130/80; PULSE 121; RESP 18; TEMP 38.8; O2SAT 97
[2022-08-13] MEDS: ketorolac 30 mg/mL INJ IVP (20:56)
[2022-08-13] MEDS: vancomycin 1,500 MG/300 ML PIGGYBACK 200 MG IV (21:11)
[2022-08-13] MEDS: gabapentin 100 mg Capsule PO (21:12)
[2022-08-13] MEDS: gabapentin 300 mg Capsule 600 MG PO (21:12)
[2022-08-13] MEDS: buPROPion SR (12 HR) 150 mg Tablet PO (21:35)
[2022-08-13] MEDS: baclofen 10 mg Tablet 60 MG PO (21:36)
[2022-08-13 21:58] LABS: Glucose Point of Care 203 mg/dL (70-110)
[2022-08-14] VITALS (7 sets, daily range): BP systolic 98–132; BP diastolic 59–77; PULSE 86–106; RESP 16–20; TEMP 36.9–37.4; O2SAT 93–96
--- NOTE | 2022-08-14 06:21 | P.PN_ITS ---
Subjective Subjective: Hospital day #1. Mr. Chen did not receive antibiotics as of yet as they have had difficulty obtaining an IV. He is scheduled for a PICC line today. He was sleeping on rounds this morning. Results of lab work have been reviewed. Vitals/I&O/Wt Last Vital Signs Temp 98.4 F 08/14/22 03:32 Pulse 90 08/14/22 03:32 Resp 17 08/14/22 03:32 BP 123/77 08/14/22 03:32 Pulse Ox 94 08/14/22 03:32 O2 Del Method 08/14/22 03:32 08/13/22 08/13/22 08/14/22 14:59 22:59 06:59 Output Total 800 / 800 Balance -800 / -800 Weight last 48 hrs Weight 250 lb Weight 215 lb Data : 08/13/22 18:00 08/13/22 17:53 A&P Assessment and plan (1) Osteomyelitis hip: Currently awaiting initial gram stain and culture results Awaiting established IV for IV antibiotics My colleague Dr. Shannon will evaluate this evening. Plan PICC line placement today Will initiate antibiotics once IV has been established I have conferred personally with Dr. Shannon this morning. She will evaluate Mr. Chen this evening. 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
[2022-08-14] MEDS: baclofen 10 mg Tablet 40 MG PO (06:23)
[2022-08-14 06:27] LABS: Glucose Point of Care 294 mg/dL (70-110)
--- NOTE | 2022-08-14 07:11 | XR_ITS ---
WS: [id number] XR chest 1V [id number] REASON FOR EXAM: post PICC insertion FINDINGS: Right arm PICC line placement. Tip of the PICC line is in the distal SVC just above the atrium. Prope r position for use. XR/XR chest 1V [id number] IMPRESSION: Right arm PICC line placement as above. Positioning results were discussed over the phone time of placement.
[2022-08-14 07:31] LABS: Urine Color Yellow (Yellow)
[2022-08-14 07:32] LABS: Bilirubin Urine Neg (Negative); Blood Urine Trace (Negative); Glucose Urine UA Norm (Normal); Ketones Urine 1+ (Negative); Leukocyte Esterase Urine 2+ (Negative); Nitrate Urine Positive (Negative); Protein Urine Neg (Negative); Specific Gravity, Urine 1.025 (1.005-1.030); Urine Appearance Hazy (CLEAR); Urobilinogen Urine Neg (Negative); pH Urine 5 (5-7)
[2022-08-14 07:33] LABS: Add Urine Microscopic? YES
[2022-08-14 07:34] LABS: Bacteria Urine 2+ /hpf
[2022-08-14 07:35] LABS: Add Urine Culture? Yes; Mucus Urine 1+ /hpf
--- NOTE | 2022-08-14 10:47 | PC.CHAP ---
Pastoral Care Encounter/Spiritual Assessment Type of Contact [] Declined systems administrator visit [] Patient/Family/Request visit [] Outpatient visit [] Follow-up visit [] Physician referral [] Code/Alert [x] Routine visit [] Staff referral [] Actively dying [] Patient sleeping [] Family support [] [] Out of room [] Palliative care [] [x] Receiving care in room [] Pre-surgical visit [] Trauma [] Long length of stay [] ICU visit [] Other: Relational/Emotional Strength [] Patient feels connected with others/family/visitors/staff [] Distress [] Loneliness/isolation [] Abandonment Spirituality of Patient [] Person of Courtney [] Attends Spiritism of their Courtney [] Believes in Prayer [] Reads Bible or Mandaeism materials [] There are Spiritual issues to be addressed Cardiac Cath Technologist Interventions [x] Prayer [x] Active listening [x] Non-anxious presence [x] Spiritual/emotional support [] Crisis/trauma care [x] Spiritual counseling [] Bereavement support [] Provided bereavement packet [] Provided Bible/devotional materials [] Provided toy/stuffed animal, coloring book to patient or family member [] Provided Communion [] Anointing/[place] [] Salvation [x] Completed spiritual assessment [] Other: Impact on Illness or Injury [] Angry [] Fearful [] Anxious [] Often cries [] Exhaustion [] Unable to work [] Unable to attend muslim [] Unable to walk/stand [] Unable to read [] Unable to drive [] Unable to eat/drink [] Unable to sleep [] Unable to be with family [] Patient intubated [] Other: Summary [place] has other health problems waiting on doctoors report has to what needs to be done has a good attitude will mgo home at some point Time spent with patient 10 mins
[2022-08-14] MEDS: ketorolac 30 mg/mL INJ IVP (10:54)
[2022-08-14] MEDS: gabapentin 100 mg Capsule PO ×2 (10:55→14:20)
[2022-08-14] MEDS: gabapentin 300 mg Capsule 600 MG PO ×3 (10:55→21:23)
[2022-08-14] MEDS: PARoxetine 20 mg Tablet PO (10:56)
[2022-08-14] MEDS: multivitamin therapeutic Tablet 1 TAB PO (10:56)
[2022-08-14] MEDS: pantoprazole DR 40 mg Tablet PO (10:56)
[2022-08-14] MEDS: cholecalciferol (vitamin D3) 1,000 unit Tablet 1000 UNIT PO (10:57)
[2022-08-14] MEDS: insulin lispro 100 unit/1 mL SUBCUT ×4 (11:07→21:34)
[2022-08-14 11:10] LABS: Glucose Point of Care 236 mg/dL (70-110)
[2022-08-14] MEDS: vancomycin 1,500 MG/300 ML PIGGYBACK 200 MG IV ×2 (11:13→18:26)
[2022-08-14] MEDS: ascorbic acid 500 mg Tablet PO ×2 (11:13→18:27)
[2022-08-14] MEDS: buPROPion SR (12 HR) 150 mg Tablet PO ×2 (11:13→21:22)
[2022-08-14] MEDS: aspirin 81 mg EC Tablet PO (11:13)
[2022-08-14] MEDS: HYDROcodone-acetaminophen 5-325 mg Tablet 1 TAB PO ×2 (14:19→21:34)
[2022-08-14] MEDS: metroNIDAZOLE IV 500 MG/100 ML PREMIX 100 MG IV ×2 (14:21→21:23)
[2022-08-14 16:53] LABS: Glucose Point of Care 179 mg/dL (70-110)
[2022-08-14] MEDS: baclofen 10 mg Tablet 80 MG PO (18:26)
[2022-08-14] MEDS: atorvastatin 40 mg Tablet PO (18:27)
[2022-08-14] MEDS: baclofen 10 mg Tablet 60 MG PO (21:22)
[2022-08-14 21:28] LABS: Glucose Point of Care 267 mg/dL (70-110)
[2022-08-15] VITALS (7 sets, daily range): BP systolic 99–121; BP diastolic 62–74; PULSE 79–95; RESP 14–17; TEMP 36.8–37.6; O2SAT 91–98
[2022-08-15 02:35] LABS: Vancomycin Trough 10.1 ug/mL (10-15)
[2022-08-15] MEDS: vancomycin 1,500 MG/300 ML PIGGYBACK 200 MG IV ×2 (02:40→09:45)
[2022-08-15] MEDS: HYDROcodone-acetaminophen 5-325 mg Tablet 1 TAB PO ×2 (05:29→09:58)
[2022-08-15] MEDS: baclofen 10 mg Tablet 40 MG PO (05:29)
--- NOTE | 2022-08-15 06:26 | PM.PN ---
Subjective Subjective: Mr. Chen is asleep on rounds this morning. Nurses report no concerns overnight. He has been receiving his vancomycin and metronidazole. We elected to hold recommended Zosyn due to reported penicillin allergy. Dressing changes were performed in his wound yesterday. He remains afebrile with stable vital signs. Serum glucoses have been running in the mid 200s despite use of a medium sliding insulin scale. Vitals/I&O/Wt Last Vital Signs Temp 98.7 F 08/15/22 04:00 Pulse 95 08/15/22 04:00 Resp 17 08/15/22 04:00 BP 99/62 08/15/22 04:00 Pulse Ox 94 08/15/22 04:00 O2 Del Method 08/15/22 04:00 08/14/22 08/14/22 08/15/22 14:59 22:59 06:59 Intake Total 300 / 300 800 / 1100 300 / 1400 Output Total 750 / 750 1500 / 2250 Balance 300 / 300 50 / 350 -1200 / -850 Weight last 48 hrs Weight 250 lb Weight 215 lb Data : 08/13/22 18:00 08/13/22 17:53 A&P Assessment and plan (1) Osteomyelitis hip: Plan I have conferred with my colleague, Dr. Shannon from our infectious disease service. She will be assessing Mr. Chen today. I greatly appreciate her efforts and expertise. I will assess Mr. Chen again this afternoon after return from [facility] wound care clinic. 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
--- NOTE | 2022-08-15 06:58 | P.CONIM_ITS ---
Providers/Reason For Consult Consulting Physician/Specialty*: Rachael Shannon MD/Infectious Disease Reason for Consult*: pelvic osteomyelitis Requesting Physician: Rj Acosta MD Attending Physician: Rj Roy MD Primary Care Provider: JC Fonseca History of Present Illness History of Present Illness David Chen is a 52 year old male ?with quadriplegia for over 20 years after a fall and nearly completely insensate below the mid chest level.? He has been followed in wound care services for dependent pressure wounds, most recently for right ischial wound and right trochanteric wound.??Most recent wound opened up in May 2022, has been undergoing wound care however reports there has been increasing pus like discharge and poor wound healing at this site. Prior to May, he has had 2 chronic wounds since 2017 which his manages at home. Recently admitted in 07/2022 for CAP, US soft tissue was performed which was negative for underlying abscess. Further evaluated with CT scan which showed bony changes consistent with osteomyelitis and abscess. Deep tissue cultures thus far with GNR. Previous outpatient cx with E. Coli. He was admitted for PICC placement and starting iv abx. Currently on Vancomycin and metronidazole. He was last treated for pelvic OM in 2017. Has not been on extended abx courses since then. Currently constitutional symptoms include fever, fatigue. T max during current hospital stay is at 101.9F on 08/13, thereafter T max 99.7F. He is incontinent of stool, however has an established regimen of bowel movements, does occasionally have accidents. He has a chronic indwelling Olivas for urinary incontinence. HE has not recently seen plastic surgery. Review of Systems General: Reports: 10 or more systems reviewed and unremarkable except in HPI and below Const: Reports: fever(s) and chills; Denies: body aches Eyes: Denies: change in vision, blurry vision or photophobia ENMT: Reports: hoarseness; Denies: throat pain, enlarged tonsils, odynophagia or nasal congestion Card: Denies: chest pain, palpitations, irregular heart rhythm, edema, swelling of feet/ankles, lightheadedness, pre-syncope, dyspnea on exertion or orthopnea Resp: Denies: dyspnea, productive cough, non-productive cough, wheezing, stridor, pain on inspiration, change in phlegm color, hemoptysis or chest congestion GI: Denies: abdominal pain, nausea, vomiting, hematemesis, coffee ground emesis, dysphagia, heartburn, diarrhea, constipation, GI cramping, change in stool character, hematochezia or melena : Denies: flank pain, dysuria, urinary frequency, urinary urgency, urinary hesitancy or hematuria Musc: Denies: neck pain, back pain, extremity pain, joint swelling, joint warmth or deformity Neuro: Denies: headache(s), numbness in extremities, weakness in extremities, sensory changes, difficulty walking, frequent falls, dizziness, vertigo, behavioral changes, Slurred speech present or seizure-like activity Psych: Denies: anxiety, depression, suicidal ideation or homicidal ideation Endo: Denies: polyuria, polydipsia, tired all the time, cold intolerance or hot flashes Sarwat/Lymph: Denies: easy bruising or easy bleeding Medications/Allergies Home Medications Medication Instructions Recorded Confirmed Last Taken Type albuterol sulfate 90 mcg/actuation 2 puff inhalation Q6H PRN 11/17/19 08/14/22 Unknown History aerosol inhaler Shortness Of Breath amitriptyline 10 mg tablet 10 mg PO BID 11/17/19 08/14/22 Unknown History ascorbate calcium (vitamin C) 500 500 mg PO BID 11/17/19 08/14/22 Unknown History mg tablet aspirin 81 mg tablet,delayed 81 mg PO QAM 11/17/19 08/14/22 Unknown History release (Adult Aspirin Regimen) atorvastatin 40 mg tablet 40 mg PO BEDTIME 11/17/19 08/14/22 Unknown History baclofen 20 mg tablet See Rx Instructions .Route .COMPLEX 11/17/19 08/14/22 Unknown History clopidogrel 75 mg tablet 75 mg PO QAM 11/17/19 08/14/22 Unknown History fluticasone propionate 50 2 spray intranasal DAILY PRN 11/17/19 08/14/22 Unknown History mcg/actuation nasal Allergy Symptoms spray,suspension (Flonase Allergy Relief) gabapentin 300 mg capsule 600 mg PO TID 11/17/19 08/14/22 Unknown History methenamine hippurate 1 gram tablet 1 gm PO BID 11/17/19 08/14/22 Unknown History paroxetine HCl 20 mg tablet 20 mg PO DAILY 11/17/19 08/14/22 Unknown History zinc 50 mg tablet 50 mg PO BEDTIME 11/17/19 08/14/22 Unknown History Lactobacillus acidophilus and 1 cap PO BID 07/13/22 08/14/22 Unknown History rhamnosus 15 billion cell capsule (Probiotic) cholecalciferol (vitamin D3) 25 25 mcg PO BEDTIME 07/13/22 08/14/22 Unknown History mcg (1,000 unit) capsule (Vitamin D3) multivitamin 1 tab PO DAILY 07/13/22 08/14/22 Unknown History vitamin A 2,400 mcg capsule 2,400 mcg PO BEDTIME 07/13/22 08/14/22 Unknown History Blood Builder 1 tab PO DAILY@16 08/14/22 08/14/22 Unknown History bupropion HCl 150 mg tablet,12 hr 150 mg PO BID 08/14/22 08/14/22 Unknown History sustained-release coenzyme Q10 100 mg capsule 100 mg PO BEDTIME 08/14/22 08/14/22 Unknown History (CoQ-10) d-mannose 500 mg capsule 500 mg PO BID 08/14/22 08/14/22 Unknown History esomeprazole magnesium 20 mg 20 mg PO DAILY 08/14/22 08/14/22 Unknown History capsule,delayed release (Nexium) ferrous gluconate 324 mg (38 mg 324 mg PO DAILY@16 08/14/22 08/14/22 Unknown History iron) tablet metformin 1,000 mg tablet 1,000 mg PO BID 08/14/22 08/14/22 Unknown History hydrocodone 5 mg-acetaminophen 325 1 tab PO Q8H PRN MODERATE PAIN 08/15/22 Unknown Rx mg tablet #30 tabs metronidazole 500 mg tablet 500 mg PO Q8H #90 tabs 08/15/22 Unknown Rx sodium hypochlorite 0.125 % 1 applic topical DAILY #473 mL 08/15/22 Unknown Rx solution (Dakin's Solution) Allergies Allergy/AdvReac Type Severity Reaction Status Date / Time Penicillins Allergy THROAT Verified 08/14/22 11:46 SWELLS SHUT Sulfa (Sulfonamide Allergy HIVES Verified 08/14/22 11:46 Antibiotics) Current Medications Generic Name Dose Route Start Last Admin Trade Name Freq PRN Reason Stop Dose Admin Hydrocodone Bitart/Acetaminophen 1 tab 08/13/22 11:01 08/15/22 05:29 Hydrocodone-Acetaminophen 5-325 Mg Tablet PO 1 tab Q4H PRN Administration MODERATE PAIN Ascorbic Acid 500 mg 10/05/22 18:00 08/14/22 18:27 Ascorbic Acid 500 Mg Tablet PO 500 mg BID OPAL Administration Aspirin 81 mg 08/14/22 09:00 08/14/22 11:13 Aspirin 81 Mg Ec Tablet PO 81 mg DAILY OPAL Administration Atorvastatin Calcium 40 mg 08/13/22 18:00 08/14/22 18:27 Atorvastatin 40 Mg Tablet PO 40 mg QPM OPAL Administration Baclofen 40 mg 08/13/22 21:00 08/15/22 05:29 Baclofen 10 Mg Tablet PO 40 mg QAM OPAL Administration Baclofen 80 mg 08/14/22 16:00 08/14/22 18:26 Baclofen 10 Mg Tablet PO 80 mg DAILY@1600 [facility] Administration Baclofen 60 mg 08/13/22 21:00 08/14/22 21:22 Baclofen 10 Mg Tablet PO 60 mg BEDTIME OPAL Administration Bupropion HCl 150 mg 08/13/22 21:00 08/14/22 21:22 Bupropion Sr (12 Hr) 150 Mg Tablet PO 150 mg BID@0900,2100 [facility] Administration Gabapentin 600 mg 08/13/22 21:00 08/14/22 21:23 Gabapentin 300 Mg Capsule PO 600 mg TID OPAL Administration Gabapentin 100 mg 08/13/22 21:00 08/14/22 21:22 Gabapentin 100 Mg Capsule PO Not Given TID [facility] Vancomycin/PEG/NADA/Lysine/Water 1,500 mg in 300 mls @ 200 mls/hr 08/14/22 10:00 08/15/22 04:21 Vancocin IV Infused Q8H [facility] Infusion Metronidazole 500 mg in 100 mls @ 100 mls/hr 08/14/22 11:30 08/14/22 22:45 Flagyl Iv IV Infused BID@0900,2100 [facility] Infusion Protocol Insulin Human Lispro 0 unit 08/13/22 12:00 08/14/22 21:34 Insulin Lispro 100 Unit/1 Ml SUBCUT 10 unit WM&BEDTIME OPAL Administration Protocol Ketorolac Tromethamine 30 mg 08/13/22 11:01 08/14/22 10:54 Ketorolac 30 Mg/Ml Inj IVP 08/18/22 11:00 30 mg Q6H PRN Administration MODERATE BREAKTHROUGH PAIN Multivitamins Therapeutic 1 tab 08/14/22 09:00 08/14/22 10:56 Multivitamin Therapeutic Tablet PO 1 tab DAILY OPAL Administration Pantoprazole Sodium 40 mg 08/14/22 09:00 08/14/22 10:[address] 40 Mg Tablet PO 40 mg DAILY OPAL Administration Paroxetine HCl 20 mg 08/14/22 09:00 08/14/22 10:56 Paroxetine 20 Mg Tablet PO 20 mg DAILY OPAL Administration Vitamin D 1,000 unit 08/14/22 09:00 08/14/22 10:57 Cholecalciferol (Vitamin D3) 1,000 Unit Tablet PO 1,000 unit DAILY OPAL Administration PFSH Acute PFSH: Medical History ASHD (arteriosclerotic heart disease) Chronic indwelling Olivas catheter History of bladder stone CYSTOLITHOLAPAXY Hyperlipidemia Hypertension 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-6) Recurrent UTI Retention of urine due to occlusion of Olivas catheter Surgical History History of cervical spinal surgery History of lumbar surgery Family History Mother Hypertension Father Arthritis Social History Smoking and tobacco status: never smoked Alcohol intake: never Adopted: No Caregiver/support person: No Lives independently: No Household members: significant other Marital status: Current occupational status: disabled History of recent travel: No Vitals/I&O/Wt Last Vital Signs Temp 98.7 F 08/15/22 04:00 Pulse 95 08/15/22 04:00 Resp 17 08/15/22 04:00 BP 99/62 08/15/22 04:00 Pulse Ox 94 08/15/22 04:00 O2 Del Method 08/15/22 04:00 08/14/22 08/14/22 08/15/22 14:59 22:59 06:59 Intake Total 300 / 300 800 / 1100 300 / 1400 Output Total 750 / 750 1500 / 2250 Balance 300 / 300 50 / 350 -1200 / -850 Weight last 48 hrs Weight 113.398 kg Weight 97.522 kg Physical Exam Narrative: General: No acute distress, AO x3 HEENT: PERRLA, pupils bilaterally equal and reactive, pallors not present Chest: Normal vesicular breath sounds, no added sounds, equal good air entry bilaterally CVS: S1-S2 regular, no murmurs, no tachycardia, no gallops, no rubs Abdomen: Soft, nontender, no organomegaly, bowel sounds present Neuro: Paraplegia Extremities: right gluteal wound approx 2 x 2 x 5 cm with palpable bone at base, right trochanteric wound 3 x 2 x1 cm, mid sacral wound 2 x 1 x 2 cm approx Data : 08/13/22 18:00 08/13/22 17:53 Other Labs: 08/11 CT abdomen/pelvis : CT/CT abdomen pelvis w con* [id number] IMPRESSION: ? 1.? RIGHT dorsal buttock decubitus ulcer with peripherally enhancing fluid collection consistent with abscess extending to the RIGHT ischium dorsally. Suspected osteomyelitis involving the RIGHT ischial dorsally appears new from previous. Fluid collection measures 7.1 x 4.8 x 6.6 cm. 2.? Chronic ulceration overlying the RIGHT lateral hip is unchanged. No inflammatory changes or fluid collection in this area. Myositis ossificans both hips. 3.? Diffuse fatty infiltration liver. 4.? IVC filter. 5.? No other significant changes compared to previous. Micro: 08/13: Deep tissue cx from ischium: prelim gram stain : GNR , pending identification 08/13: Bone cx : pending 08/12: blood cx : negative A&P Assessment and plan (1) Osteomyelitis hip: Patient admitted for pressure ulcer, worsening wound infection and underlying ischial osteomyelitis Deep tissue cx + bone cx taken, thus far with GNR on gram stain, pending further identification Currently patient is on treatment with iv vancomycin and metronidazole Recommend to start cefepime 2g iv q12h given GNR identified on gram stain. Confirmed nature of PCN allergy with patient. States his throat closed up with Penicillin as a child. He has taken Keflex in the past without any issues. Possibly has also taken augmentin however cannot recall for sure. he is willing to try Cefepime while being monitored in the hospital. Continue vancomycin for now until further cx data available. If cx remains negative for MRSA or enterococcus, can likely d/c Can change metronidazole from from iv to po. Patient concerned about diarrhea from oral abx- counselled that metronidazole more frequently associated with nausea, metallic taste. Unfortunately abx associated diarrhea may be a poss ibility with any abx including ivs. Will recommend at least 6 weeks of iv abx for ischial osteomyelitis. Thereafter further abx recommendation will be dependent on final cx results and clinical course. 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
[2022-08-15 07:07] LABS: Glucose Point of Care 230 mg/dL (70-110)
[2022-08-15 08:59] LABS: Glucose Point of Care 207 mg/dL (70-110)
[2022-08-15] MEDS: insulin lispro 100 unit/1 mL SUBCUT ×2 (09:32→12:57)
[2022-08-15] MEDS: cholecalciferol (vitamin D3) 1,000 unit Tablet 1000 UNIT PO (09:39)
[2022-08-15] MEDS: PARoxetine 20 mg Tablet PO (09:39)
[2022-08-15] MEDS: gabapentin 300 mg Capsule 600 MG PO ×2 (09:39→15:05)
[2022-08-15] MEDS: ascorbic acid 500 mg Tablet PO ×2 (09:39→17:45)
[2022-08-15] MEDS: aspirin 81 mg EC Tablet PO (09:39)
[2022-08-15] MEDS: pantoprazole DR 40 mg Tablet PO (09:39)
[2022-08-15] MEDS: gabapentin 100 mg Capsule PO ×2 (09:39→15:05)
[2022-08-15] MEDS: multivitamin therapeutic Tablet 1 TAB PO (09:39)
[2022-08-15] MEDS: cefepime 2,000 MG in sodium chloride 0.9% (plus) 50 ML 100 MG IV ×2 (09:40→17:45)
[2022-08-15] MEDS: metroNIDAZOLE 500 MG Tablet PO ×2 (09:42→15:06)
[2022-08-15] MEDS: buPROPion SR (12 HR) 150 mg Tablet PO (09:44)
[2022-08-15 11:31] LABS: Glucose Point of Care 266 mg/dL (70-110)
[2022-08-15] MEDS: baclofen 10 mg Tablet 80 MG PO (15:05)
--- NOTE | 2022-08-15 16:52 | P.DS_ITS ---
Discharge Providers Date of Admission: 08/13/22 11:01 Date of Discharge: August 15, 2022 Attending Provider at Admission: Rj Roy MD Attending Provider at Discharge: Rj Roy MD Consults: Dr. Mirtha Rios (to be seen as oupatient in his clinic) Primary Care Provider: JC Fonseca Diagnoses at Discharge Discharge Diagnosis (1) Osteomyelitis hip: Details from hospital stay: Mr. 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 He is presently been followed in wound clinic for a chronic mid sacral wound, right trochanteric wound, and a relatively new right gluteal wound which extends to the ischium. This wound is new since the end of May. He is also had a prior muscle flap advancement over this region. Subsequent evaluations included CT scan which revealed evidence for bony changes consistent with probable osteomyelitis. He also has a history of most recently of intermittent subjective fevers. Due to intolerance with many oral medications, he was admitted for further evaluation and placement of a PICC line and initiation of parenteral antibiotics and expeditious infectious disease consult. After initial evaluation upon admission and debridement, he was started on metronidazole and vancomycin. Cultures were obtained with parameters revealing a gram-negative alfred no sensitivities are still pending. He was evaluated very rapidly by our colleague Dr. Shannon. She is recommended discontinuation of vancomycin initiation cefepime continuation of oral Flagyl in the interim until final cultures results have returned. Wound is remained relatively clean with daily dressing changes and bedside debridement as needed. His deepest wound is the relatively new right gluteal wound which extends down to the palpable ischium. PICC line has been placed and is functioning well. Outpatient arrangements for home infusion antibiotic therapy have been completed. We will continue cefepime and Flagyl with weekly lab work to be drawn at a local [facility] clinic. He will follow-up in wound care services in 1 week. He will follow-up with Dr. Shannon. He will also follow-up with my colleague Dr. Crater with general surgery for consideration of a diverting colostomy to assist with wound management and decreased contamination. Presently, at the time of discharge, he is in stable condition. We have had discussions concerning consideration for advanced care hospitalization to allow for multimodality approach which might possibly include further wound care services, nutritional services, plastic surgery evaluation, and consideration for prolonged prone positioning for maximal pressure relief over these regions. At this time, Mr. Chen is considering this but has not a great to such measures presently. Status: Acute Reason for Visit Reason for Visit: Gluteal Ischial Abcess Physical Exam Resp: COMMON NORMALS: normal respiratory effort and clear to auscultation bilaterally AUSCULTATION: clear to auscultation bilaterally Cardio: COMMON NORMALS: regular rate, regular rhythm, S1 normal heart sound present, No murmurs present (Cardio) and No rub (Cardio) RATE: regular rate RHYTHM: regular rhythm HEART SOUNDS: S1 normal heart sound present GI: COMMON NORMALS: Normal to inspection, nondistended, normoactive bowel sounds present OTHER: No distention. Abdomen is soft. Back/Pelvis: OTHER: Right trochanteric and mid sacral wounds are relatively clean without substantial malodor or drainage. There is minimal periwound erythema. The right gluteal wound does extend approximately 7 cm to palpable ischium. All wounds are presently receiving wet-to-dry dressing changes. We have recommended intermittent use of Dakin's solution should malodor develop. Discharge Data Studies Completed and Pending Completed Studies During Hospitalization Category Date Time Status XR chest 1V [id number] Routine Exams 08/14/22 07:11 Completed XR chest 1V portable [id number] Routine Exams 08/13/22 11:01 Completed Pending at discharge Category Date Time Status Urine Culture Routine Lab 08/13/22 06:37 Results Radiology Impressions Chest X-Ray 08/14/22 07:11 IMPRESSION: Right arm PICC line placement as above. Positioning results were discussed over the phone time of placement. Laboratory Results WBC 19.0 10^3/uL (4.0-10.0) H 08/13/22 18:00 RBC 5.47 10^6/uL (4.1-5.3) H 08/13/22 18:00 Hgb 10.4 g/dL (11.7-16.6) L 08/13/22 18:00 Hct 37.9 % (42.0-52.0) L 08/13/22 18:00 MCV 69.3 fl (80-94) L 08/13/22 18:00 MCH 19.0 pg (28.0-34.0) L 08/13/22 18:00 MCHC 27.4 g/dL (30.0-36.0) L 08/13/22 18:00 RDW 25.2 % (12.1-15.1) H 08/13/22 18:00 Plt Count 516 10^3/cmm (130-400) H 08/13/22 18:00 MPV 9.6 fL (7.4-10.4) 08/13/22 18:00 Neut % (Auto) 82.3 % 08/13/22 18:00 Lymph % (Auto) 5.2 % 08/13/22 18:00 [place] % (Auto) 9.7 % 08/13/22 18:00 Eos % (Auto) 1.7 % 08/13/22 18:00 Baso % (Auto) 0.6 % 08/13/22 18:00 Neut # (Auto) 15.64 10^3/uL (1.8-7.7) H 08/13/22 18:00 Lymph # (Auto) 1.0 10^3/uL (0.8-4.8) 08/13/22 18:00 [place] # (Auto) 1.9 10^3/uL (0.2-0.9) H 08/13/22 18:00 Eos # (Auto) 0.3 10^3/uL (0.0-0.8) 08/13/22 18:00 Baso # (Auto) 0.1 10^3/uL (0.0-0.1) 08/13/22 18:00 Nucleated RBC % (auto) 0 % 08/13/22 18:00 Nucleated RBCs # 0.0 /100WBC 08/13/22 18:00 ESR > 130 mm/hr (0-10) H 08/13/22 18:00 Sodium 129 mmol/L (136-145) L 08/13/22 17:53 Potassium 3.8 mmol/L (3.5-5.1) 08/13/22 17:53 Chloride 93 mmol/L (98-107) L 08/13/22 17:53 Carbon Dioxide 21 mmol/L (22-29) L 08/13/22 17:53 Anion Gap 18.8 (5-19) 08/13/22 17:53 BUN 12 mg/dL (6-20) 08/13/22 17:53 Creatinine 0.4 mg/dL (0.7-1.2) L 08/13/22 17:53 GFR Calculation 225.0 mL/min (90-130) H 08/13/22 17:53 Glucose 205 mg/dL (65-115) H 08/13/22 17:53 POC Glucose 266 mg/dL (70-110) H 08/15/22 10:51 Calculated Osmolality 274 mOsm/kg (285-295) L 08/13/22 17:53 Calcium 8.8 mg/dL (8.5-10.5) 08/13/22 17:53 Phosphorus 3.6 mg/dL (2.5-4.5) 08/13/22 17:53 Magnesium 1.7 mg/dL (1.7-2.3) 08/13/22 17:53 Total Bilirubin 0.2 mg/dL (0.15-1.2) 08/13/22 17:53 AST 11 U/L (0-40) 08/13/22 17:53 ALT 14 U/L (0-41) 08/13/22 17:53 Alkaline Phosphatase 89 U/L (40-130) 08/13/22 17:53 C-Reactive Protein 234.0 mg/L (0.0-4.9) H 08/13/22 17:53 NT-Pro-B Natriuret Pep 688 pg/mL (0-125) H 08/13/22 17:53 Total Protein 7.3 g/dL (6.6-8.7) 08/13/22 17:53 Albumin 2.9 g/dL (3.5-5.2) L 08/13/22 17:53 Globulin 4.4 g/dL (1.3-4.6) 08/13/22 17:53 Procalcitonin 0.24 ng/mL (0-0.5) 08/13/22 17:53 Urine Color Yellow (Yellow) 08/13/22 06:37 Urine Appearance Hazy (CLEAR) A 08/13/22 06:37 Urine pH 5 (5-7) 08/13/22 06:37 Ur Specific [place] 1.025 (1.005-1.030) 08/13/22 06:37 Urine Protein Neg (Negative) 08/13/22 06:37 Urine Glucose (UA) Norm (Normal) 08/13/22 06:37 Urine Ketones 1+ (Negative) H 08/13/22 06:37 Urine Blood Trace (Negative) H 08/13/22 06:37 Urine Nitrate Positive (Negative) H 08/13/22 06:37 Urine Bilirubin Neg (Negative) 08/13/22 06:37 Urine Urobilinogen Neg mg/dL (Negative) 08/13/22 06:37 Ur Leukocyte Esterase 2+ (Negative) H 08/13/22 06:37 Urine RBC 5-10 /hpf (0-2) H 08/13/22 06:37 Urine WBC 10-15 /hpf (0-5) H 08/13/22 06:37 Ur Squamous Epith Cells None /hpf (0-5) 08/13/22 06:37 Amorphous Sediment Not Reportable 08/13/22 06:37 Urine Bacteria 2+ /hpf (NONE) H 08/13/22 06:37 Urine Mucus 1+ /hpf 08/13/22 06:37 Urine Yeast 2+ /hpf H 08/13/22 06:37 Vancomycin Trough 10.1 ug/mL (10-15) 08/15/22 01:13 Vitals Last Vital Signs Temp 98.3 F 08/15/22 16:00 Pulse 86 08/15/22 16:00 Resp 14 08/15/22 16:00 BP 101/64 08/15/22 16:00 Pulse Ox 96 08/15/22 16:00 O2 Del Method 08/15/22 16:00 Discharge Plan Discharge Patient Disposition: Home Condition: Stable Prescriptions: New hydrocodone-acetaminophen 5-325 mg Tablet 1 tab PO Q8H PRN (Reason: MODERATE PAIN) Qty: 30 0RF metronidazole 500 mg Tablet 500 mg PO Q8H Qty: 90 3RF Dakin's Solution 0.125 % solution 1 applic topical DAILY Qty: 473 3RF Continued albuterol sulfate 90 mcg/actuation HFA aerosol inhaler 2 puff INHALATION Q6H PRN (Reason: Shortness Of Breath) aspirin [Adult Aspirin Regimen] 81 mg tablet,delayed release (DR/EC) 81 mg PO QAM atorvastatin 40 mg tablet 40 mg PO BEDTIME baclofen 20 mg tablet See Rx Instructions .ROUTE .COMPLEX Rx Instructions: 3 TABS IN AM, 4 TABS@ 4PM, AND 2 TABS AT BEDTIME clopidogrel 75 mg tablet 75 mg PO QAM fluticasone propionate [Flonase Allergy Relief] 50 mcg/actuation spray,suspension 2 spray INTRANASAL DAILY PRN (Reason: Allergy Symptoms) gabapentin 300 mg capsule 600 mg PO TID methenamine hippurate 1 gram tablet 1 gm PO BID ascorbate calcium (vitamin C) 500 mg tablet 500 mg PO BID paroxetine HCl 20 mg tablet 20 mg PO DAILY amitriptyline 10 mg tablet 10 mg PO BID zinc 50 mg tablet 50 mg PO BEDTIME multivitamin Tablet 1 tab PO DAILY vitamin A 2,400 mcg Capsule 2,400 mcg PO BEDTIME cholecalciferol (vitamin D3) [Vitamin D3] 25 mcg (1,000 unit) Capsule 25 mcg PO BEDTIME Probiotic 15 billion cell Capsule 1 cap PO BID bupropion HCl 150 mg tablet sustained-release 12 hr 150 mg PO BID metformin 1,000 mg tablet 1,000 mg PO BID Nexium 20 mg Capsule,Delayed Release(Dr/Ec) 20 mg PO DAILY CoQ-10 100 mg Capsule 100 mg PO BEDTIME ferrous gluconate 324 mg (38 mg iron) Tablet 324 mg PO DAILY@16 d-mannose 500 mg Capsule 500 mg PO BID Blood Builder 1 tab PO DAILY@16 Discharge Orders: Discharge Order (Routine); Ordered 08/15/22 Ordered By: Rj Roy Other Ambulatory Orders: Complete Blood Count w/Auto (Routine) Timeframe: 6 Weeks Location: Determined by Patient Ordered By: Rachael Shannon Creatinine (Routine) Timeframe: 6 Weeks Location: Determined by Patient Ordered By: Rachael Shannon C Reactive Protein (Routine) Timeframe: 6 Weeks Location: Determined by Patient Ordered By: Rachael Shannon Liver Panel (Routine) Timeframe: 6 Weeks Location: Determined by Patient Ordered By: Rachael Shannon Referrals: [facility] [Outside] Gurpreet Rios MD [Physician] - Rachael Shannon MD [Hospitalist] - 09/18/22 10:00 am () [facility], [Staff Physician] - 1 week Discharge Diet: Usual diet Discharge Activity: Resume usual activity Patient Instructions: Opioid Safety Discharge Attestations Time Spent in Discharge Care*: greater than 30 min Specific Discharge Activities: educating patient, educating and/or supporting family/caregiver, discussing with pcp/other providers, discussing with rn case management/social workers/dc planners, documenting/other paperwork and evaluating patient/reviewing data Status at Discharge: Cognitive status at discharge: cognitively intact , Behavioral status at discharge: cooperative , Functional status at discharge: wheelchair bound , Overall status at discharge: patient is back to baseline Quality Metrics Clinical Quality Measures [ No reported AMI, CVA or VTE this stay] Coding Level of Care Code Acute Chg FW DC note Diagnoses Osteomyelitis hip M86.9
[2022-08-15 17:23] LABS: Glucose Point of Care 209 mg/dL (70-110)
[2022-08-15] MEDS: atorvastatin 40 mg Tablet PO (17:45)
--- NOTE | 2022-08-15 19:05 | PC.NURSE ---
PICC DRESSING CHANGED BY THIS NURSE
== END 2022-08-15 19:05 | disposition home or self-care (01) | DRG 539 ==
PROVIDERS: Admitting Provider Thoracic Surgery (Cardiothoracic Vascular Surgery); PCP Nurse Practitioner Family; Visit Provider Thoracic Surgery (Cardiothoracic Vascular Surgery)
DX: M86.8X8 Other osteomyelitis, other site (principal); G82.54 Quadriplegia, C5-C7 incomplete; L89.154 Pressure ulcer of sacral region, stage 4; L89.214 Pressure ulcer of right hip, stage 4; L89.314 Pressure ulcer of right buttock, stage 4; B96.89 Other specified bacterial agents as the cause of diseases classified elsewhere; I25.10 Atherosclerotic heart disease of native coronary artery without angina pectoris; E78.5 Hyperlipidemia, unspecified; I10 Essential (primary) hypertension; N31.9 Neuromuscular dysfunction of bladder, unspecified; I25.2 Old myocardial infarction; Z87.440 Personal history of urinary (tract) infections; Z79.02 Long term (current) use of antithrombotics/antiplatelets; Z79.82 Long term (current) use of aspirin; Z86.74 Personal history of sudden cardiac arrest; Z95.5 Presence of coronary angioplasty implant and graft
CPT/HCPCS: 11042; 11043; 11044; 36415; 36416; 36569; 71045; 74177; 80053; 80202; 81001; 82962; 83735; 83880; 84100; 84145; 85025; 85651; 86140; 87070; 87077; 87086; 87176; 87186; 87205; 96372; J0692; J1815; J1885; J3370; S0030

== ENCOUNTER → 2022-08-20 14:51 | Outpatient (BNVA) | payer MEDICARE, MEDICAID, SELFPAY | PROVIDERS: PCP Nurse Practitioner Family; Visit Provider Thoracic Surgery (Cardiothoracic Vascular Surgery) | DX: I96 Gangrene, not elsewhere classified (principal); L89.214 Pressure ulcer of right hip, stage 4; L89.312 Pressure ulcer of right buttock, stage 2; L89.153 Pressure ulcer of sacral region, stage 3 | CPT/HCPCS: 11042; 11043; 87070; 87077; 87176; 87186; 87205; A6212 ==

== ENCOUNTER → 2022-08-22 14:15 | Outpatient (BNVA) | payer MEDICARE, MEDICAID, SELFPAY | PROVIDERS: PCP Nurse Practitioner Family; Visit Provider Nurse Practitioner Family | DX: N39.0 Urinary tract infection, site not specified (principal) | CPT/HCPCS: 81000 ==

== ENCOUNTER 2022-09-01 16:19 | Outpatient (CLI) | payer MEDICARE, MEDICAID, SELFPAY ==
--- NOTE | 2022-09-01 15:00 | CT_ITS ---
WS: [id number] CT RIGHT FEMUR WITH CONTRAST. HISTORY: M86.9 - Osteomyelitis, unspecified Technique: All CT scans at [facility] use at least one of these dose optimization techniques: automated exposure control; mA and/or kV adjustment per patient size (includes targeted exams where dose is matched to clinical indication); or iterative reconstruction. Contrast: Omnipaque 350; 95 mL IV. DLP: 1431.56 mGy.cm COMPARISON: 08/11/2022 Marked narrowing of the RIGHT hip joint. Dystrophic ossification within the soft tissues surrounding the RIGHT hip. No fracture. Mild narrowing of the hip joint. Soft tissue ulceration tract containing air extends from the lateral RIGHT hip to abut the cortical surface of the greater trochanter. No cor tical destruction. There is also a soft tissue track extending to the ischial tuberosity. There is lo ss of the normal cortex. Both lytic and sclerotic changes. The abscess seen abutting the RIGHT ischia l tuberosity and the prior study has resolved. The track is now widely patent. Extensive foci of air have progressed throughout the soft tissues of the pelvis. Numerous air foci ar e contiguous with the large RIGHT gluteal tract and extends through the RIGHT perineum into the soft tissues over the anterior pelvis and through the scrotum. Small amount of air crosses the midline to the LEFT scrotal sac and perineum. Increasing air along the medial upper RIGHT thigh. Olivas catheter present in a nondistended urinary bladder. Numerous small lymph nodes in the RIGHT dannie in. CT/CT femur RT w con [id number] IMPRESSION: 1. New extensive air throughout the soft tissues of the pelvis involving the p erineum, scrotum and medial RIGHT thigh. Findings consistent with Danielle gang yan. 2. Soft tissue decubitus ulcers involving the RIGHT gluteal region extends to the ischial tuberosity and over the RIGHT lateral greater trochanter. 3. Abscess and osteomyelitis involving the RIGHT ischial tuberosity seen on has moderately improved. No progression of osteomyelitis. Notified Rj Roy MD at 09/02/2022 9:55 AM.
[2022-09-01] MEDS: iohexol 350 mg/mL 100 mL Btl IV (17:26)
== END 2022-09-01 16:20 | disposition home or self-care (01) ==
LOC: RAD 16:22
PROVIDERS: PCP Nurse Practitioner Family; Visit Provider Thoracic Surgery (Cardiothoracic Vascular Surgery)
DX: M86.8X8 Other osteomyelitis, other site (principal); N49.3 Fournier gangrene; L89.214 Pressure ulcer of right hip, stage 4; L89.153 Pressure ulcer of sacral region, stage 3; L89.312 Pressure ulcer of right buttock, stage 2; M86.9 Osteomyelitis, unspecified
CPT/HCPCS: 11042; 11043; 73701; 80076; 82565; 85025; 86140; 97597; 99024; A6212; A6446

== ENCOUNTER 2022-09-01 16:20 | Outpatient (CLI) | payer MEDICARE, MEDICAID, SELFPAY ==
[2022-09-01 17:31] LABS: Albumin Level 3.1 g/dL (3.5-5.2); Alkaline Phosphatase 81 U/L (40-130); C Reactive Protein 110.8 mg/L (0.0-4.9); Globulin 5.1 g/dL (1.3-4.6); Glomerular Filtration Rate 313.6 mL/min (90-130); Total Bilirubin 0.2 mg/dL (0.15-1.2); Total Protein 8.2 g/dL (6.6-8.7)
[2022-09-01 17:34] LABS: Alanine Aminotransferase 13 U/L (0-41); Aspartate Amino Transferase 30 U/L (0-40)
== END 2022-09-01 16:21 | disposition home or self-care (01) ==
LOC: LAB 16:22
PROVIDERS: PCP Nurse Practitioner Family; Visit Provider Student in an Organized Health Care Education/Training Program
DX: M86.9 Osteomyelitis, unspecified (principal)
CPT/HCPCS: 11042; 80076; 82565; 85025; 86140; 99024

== ENCOUNTER 2022-09-02 13:01 | Inpatient (IN) | payer MEDICARE, MEDICAID, SELFPAY ==
[2022-09-02] VITALS (20 sets, daily range): BP systolic 99–154; BP diastolic 58–99; PULSE 85–115; RESP 13–21; TEMP 36.4–37.8; O2SAT 92–99; BMI 37.6
--- NOTE | 2022-09-02 13:05 | XR_ITS ---
WS: [id number] Exam: XR chest 1V portable [id number] Date/Time of Exam: 09/02/2022 1:05 PM Reason For Exam: screening The lungs are clear and fully expanded. Normal cardiomediastinal silhouette. A right-sided PICC line is in place ending in the region of the midportion of the SVC. Bony structures are intact. Moderate d extroscoliosis of the T-spine. XR/XR chest 1V portable [id number] IMPRESSION: 1. No acute cardiopulmonary finding. 2. Right-sided PICC line appearing to be in satisfactory position.
--- NOTE | 2022-09-02 13:06 | ECG_ITS ---
[facility] Test Date: 2022-09-02 Pat Name: David Chen Department: Room: Gender: Male [employer] Officer: : 1970 Requested By: Raul Anderson Order Number: [id number] Harrison MD: Lucas Martinez M.D. Measurements Intervals [place] Rate: 110 P: 74 KS: 139 QRS: 61 QRSD: 83 T: 82 QT: 306 QTc: 416 Interpretive Statements SINUS TACHYCARDIA POSSIBLE LEFT ATRIAL ENLARGEMENT [-0.1mV P-WAVE IN V1/V2] POSSIBLE RIGHT VENTRICULAR CONDUCTION DELAY [RSR (QR) IN V1/V2] NONSPECIFIC T-WAVE ABNORMALITY ABNORMAL RHYTHM ECG Compared to ECG 07/12/2022 21:00:02 T-wave abnormality now present Incomplete right bundle-branch block no longer present Electronically Signed On 09-03-2022 0:20:12 CDT by Lucas Martinez M.D. [email or web address]
[2022-09-02 13:53] LABS: Glucose Point of Care 226 mg/dL (70-110)
--- NOTE | 2022-09-02 13:58 | ED_ITS ---
HPI - General Adult General: Chief complaint: General Medical Stated complaint: Surgery Time Seen by Provider: 09/02/22 13:36 Source: patient and family Mode of arrival: wheelchair History of Present Illness: 52-year-old male comes in with a chronic wound to his buttock. I seen him earlier this month on August for that time there was a large pelvic abscess dissecting down around the ischium and he had some chronic osteomyelitis and consultation with Dr. Roy at that point we decided to place a PICC line and start IV antibiotics with the hope of reducing the infection and then doing a smaller procedure to clean out at a later date. Dr. Roy has been actively managing it unfortunately has not responded greatly to the antibiotics and the abscess has extended some ruptured spontaneously and was draining. Dr. 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 Patient was directed to the emergency room by Dr. Roy. Dr. Roy had called ahead of time we are planning to see the patient to do preop evaluation in the emergency room and then the plan is for him to go directly to the OR. On arrival patient is mildly tachycardic his blood pressure is 107/71 reviewing his old labs its in the area of where he has been in the past he has a low-grade temp of 99 1 his oxygen sats are normal he last ate around 7 AM. His history was reviewed. Shortly after arrival I contacted Dr. Roy and Dr. Kevin way to him make them aware that the patient was in the ER. And we immediately consulted hospitalist service to help with the preop evaluation. Dr. Villatoro will be coming to see the patient in the emergency room. Onset (ago): month(s) Location: pelvis and buttocks Severity: severe Associated symptoms: Deny chest pain, confusion, cough, diaphoresis, decreased appetite, dyspnea, fevers/chills, headache(s), malaise, nausea, rash, palpitations, seizures, short of breath, syncope, vomiting or weakness Review of Systems Const: Reports: fever(s) and fatigue; Denies: chills, body aches, malaise or diaphoresis ENMT: Denies: throat pain, ear or mastoid pain, nasal discharge or nasal congestion Card: Denies: chest pain, palpitations or syncope Resp: Denies: dyspnea, productive cough or non-productive cough GI: Denies: abdominal pain, nausea or vomiting : Denies: flank pain, difficulty urinating, dysuria, urinary frequency or urinary urgency Skin/Breast: Denies: rash Neuro: Denies: headache(s) or confusion PFS ED PFSH: Medical History (Updated 09/02/22 @ 14:53 by Nita Villatoro MD) ASHD (arteriosclerotic heart disease) Chronic incomplete quadriplegia Chronic indwelling Olivas catheter Diabetes no insulin History of bladder stone CYSTOLITHOLAPAXY History of cardiac arrest 2017 post heart attack, prolonged ventilation, trach, peg. History of difficult intubation Went through tongue during emergency procedure Hyperlipidemia Hypertension Iron deficiency Neurogenic bladder secondary to spinal cord injury 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-6) Recurrent UTI Retention of urine due to occlusion of Olivas catheter Surgical History (Updated 09/02/22 @ 14:24 by Nita Villatoro MD) History of cervical spinal surgery History of lumbar surgery History of percutaneous coronary intervention RCA History of percutaneous endoscopic gastrostomy History of tracheostomy subsequently removed, for prolonged ventilation Status post excisional debridement buttocks Family History (Updated 09/02/22 @ 14:37 by Nita Villatoro MD) Mother Hypertension Father Arthritis Denies family history of Anesthesia complication Bleeding disorder Social History Smoking and tobacco status: never smoked Alcohol intake: never Adopted: No Caregiver/support person: No Lives independently: No Household members: significant other Marital status: Current occupational status: disabled History of recent travel: No Physical Exam Const: COMMON NORMALS: no acute distress GENERAL APPEARANCE: cooperative and comfortable ORIENTATION/CONSCIOUSNESS: Yes awake, Yes oriented to person, Yes oriented to place and Yes oriented to time HENMT: COMMON NORMALS: normocephalic, atraumatic and hearing grossly normal bilaterally HEAD & SCALP: normocephalic and atraumatic Resp: COMMON NORMALS: normal respiratory effort, No retractions, No use of accessory muscles and clear to auscultation bilaterally AUSCULTATION: clear to auscultation bilaterally Cardio: COMMON NORMALS: regular rate, regular rhythm and No murmurs present (Cardio) RATE: regular rate RHYTHM: regular rhythm GI: COMMON NORMALS: Soft to palpation and No hepatosplenomegaly present AUSCULTATION: Yes normoactive bowel sounds PALPATION: Yes Soft to palpation, No Tenderness to palpation present (GI), No Guarding due to palpation present (GI) and Yes No hepatosplenomegaly present Extremity: OTHER: Did not remove patient from the chair or examine the wound since he is going directly to surgery with Dr. Roy who is already evaluated the wound yesterday. Neuro: SENSORIUM/ORIENTATION: Yes oriented to person, Yes oriented to place and Yes oriented to time Course Vital Signs: Vital signs: Vital Signs Temperature 99.1 F 09/02/22 13:31 Pulse Rate 111 H 09/02/22 14:34 Respiratory Rate 20 H 09/02/22 14:34 Blood Pressure 154/97 09/02/22 14:34 Pulse Oximetry 94 09/02/22 14:34 Oxygen Delivery Me thod 09/02/22 14:34 MDM - General Adult Medical Decision Making Admit with abscess and spreading wound ulcer with chronic osteomyelitis. There is also concern for extension of foreign years gangrene. Antibiotics per hospitalist and surgery. He has been on antibiotics through the PICC line up at this point. Dr. Alberts and Dr. Roy have been notified Dr. Becker was consulted for the hospitalist service to do preop evaluation. Medical Records I reviewed the patient's medical records. Lab Data I reviewed the patient's lab results. : 09/02/22 14:05 09/02/22 14:05 Radiology Impressions Chest X-Ray 09/02/22 13:05 IMPRESSION: 1. No acute cardiopulmonary finding. 2. Right-sided PICC line appearing to be in satisfactory position. Laboratory Results WBC 17.7 10^3/uL (4.0-10.0) H 09/02/22 14:05 RBC 5.48 10^6/uL (4.1-5.3) H 09/02/22 14:05 Hgb 10.7 g/dL (11.7-16.6) L 09/02/22 14:05 Hct 38.1 % (42.0-52.0) L 09/02/22 14:05 MCV 69.5 fl (80-94) L 09/02/22 14:05 MCH 19.5 pg (28.0-34.0) L 09/02/22 14:05 MCHC 28.1 g/dL (30.0-36.0) L 09/02/22 14:05 RDW 23.7 % (12.1-15.1) H 09/02/22 14:05 Plt Count 660 10^3/cmm (130-400) H 09/02/22 14:05 MPV 9.0 fL (7.4-10.4) 09/02/22 14:05 Neut % (Auto) 81.1 % 09/02/22 14:05 Lymph % (Auto) 6.2 % 09/02/22 14:05 [place] % (Auto) 9.2 % 09/02/22 14:05 Eos % (Auto) 2.2 % 09/02/22 14:05 Baso % (Auto) 0.7 % 09/02/22 14:05 Neut # (Auto) 14.39 10^3/uL (1.8-7.7) H 09/02/22 14:05 Lymph # (Auto) 1.1 10^3/uL (0.8-4.8) 09/02/22 14:05 [place] # (Auto) 1.6 10^3/uL (0.2-0.9) H 09/02/22 14:05 Eos # (Auto) 0.4 10^3/uL (0.0-0.8) 09/02/22 14:05 Baso # (Auto) 0.1 10^3/uL (0.0-0.1) 09/02/22 14:05 Nucleated RBC % (auto) 0 % 09/02/22 14:05 Nucleated RBCs # 0.0 /100WBC 09/02/22 14:05 PT 15.20 SECONDS (12.1-14.9) H 09/02/22 14:05 INR 1.16 (0.8-1.2) 09/02/22 14:05 APTT 30.2 SECONDS (23.9-36.7) 09/02/22 14:05 Sodium 133 mmol/L (136-145) L 09/02/22 14:05 Potassium 4.3 mmol/L (3.5-5.1) 09/02/22 14:05 Chloride 94 mmol/L (98-107) L 09/02/22 14:05 Carbon Dioxide 25 mmol/L (22-29) 09/02/22 14:05 Anion Gap 18.3 (5-19) 09/02/22 14:05 BUN 16 mg/dL (6-20) 09/02/22 14:05 Creatinine 0.4 mg/dL (0.7-1.2) L 09/02/22 14:05 GFR Calculation 225.0 mL/min (90-130) H 09/02/22 14:05 Glucose 202 mg/dL (65-115) H 09/02/22 14:05 POC Glucose 226 mg/dL (70-110) H 09/02/22 13:48 Calculated Osmolality 283 mOsm/kg (285-295) L 09/02/22 14:05 Calcium 9.7 mg/dL (8.5-10.5) 09/02/22 14:05 Blood Type O Positive 09/02/22 14:05 Rho(D) Type Positive 09/02/22 14:05 Discharge Plan Discharge Patient Disposition: Admitted As Inpatient Clinical Impression: 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, Neurogenic bladder, Anemia, Chronic indwelling Olivas catheter, Pressure ulcers of skin of multiple topographic sites, Pressure ulcer of coccygeal region, Osteomyelitis hip, Quadriplegia Hypertension Qualifiers: Hypertension type: primary hypertension Qualified Code(s): I10 - Essential (primary) hypertension Diabetes Qualifiers: Diabetes mellitus type: type 2 Diabetes mellitus penitentiary insulin use: without penitentiary use Diabetes mellitus complication status: with skin complications Diabetes mellitus complication detail: with other skin ulcer Qualified Code(s): E11.622 - Type 2 diabetes mellitus with other skin ulcer Condition: Stable Coding Level of Care Code ED Vehicle Body Maker for g Fwd Exam Detailed
--- NOTE | 2022-09-02 14:11 | P.HP_ITS ---
Providers/Chief Complaint Admitting Physician: Nita Villatoro MD Primary Care Provider: JC Fonseca Chief Complaint: Surgery History of Present Illness David Chen is a 52 year old male followed at wound care clinic for chronic pressure wounds in the mid sacral area, right trochanteric area and a right gluteal wound that extends to the ischium. He had had previous muscle flap advancement over the region but wounds have progressed. He sees Dr. Roy. At the earlier part of the month he was diagnosed with osteomyelitis in the right right hip. In the hospital he was seen by infectious disease and he has been on outpatient antibiotics most recently with cefepime and Flagyl as per their recommendations. He has a right upper extremity PICC line. He has had exte nsion of area of involvement into other parts of the right thigh since that time. Wounds were debrided at the wound care clinic yesterday and patient was sent for CT scan right femur. 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 Patient was called and came in to the emergency room with planned admission for surgical intervention emergently. Drs. Roy and Aristeo are aware of patient's arrival. Patient has a history of coronary artery disease and had a heart attack with associated cardiac arrest in 2017. He underwent emergent intubation that was complicated by passage through the tongue and ended up holding tracheostomy tube and PEG tube placement with prolonged mechanical ventilation during his recovery. 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 He has significant nausea and vomiting from anesthesia but no other anesthesia complications reported. No history of bleeding or clotting disorder. No kidney disease. He is a known diabetic only on metformin. No chronic pulmonary disease however he was hospitalized in July of this year for what ultimately was felt to likely be aspiration pneumonitis given the rapidity with which he improved. At the time he had significant iron deficiency anemia and received a transfusion of 1 unit of packed red blood cells. Echocardiogram was performed during that stay demonstrating an ejection fraction of 50 to 55%. He is being admitted to the hospitalist service. Review of Systems Const: Reports: fever(s), chills, malaise and diaphoresis Card: Denies: chest pain Resp: Denies: dyspnea GI: Reports: other (Last bowel movement today, requires assistance) : Reports: other (chronic estes) Musc: Reports: other (General aches and pains) Skin/Breast: Reports: changing lesions and lesions Neuro: Reports: involuntary movements and other (incomplete quadraplegia, can use arms some) Endo: Reports: excessive sweating (especially when he hurts) [place]/Lymph: Reports: other (recently recevied blood) Medications/Allergies Home Medications Medication Instructions Recorded Confirmed Last Taken Type albuterol sulfate 90 mcg/actuation 2 puff inhalation Q6H PRN 11/17/19 08/22/22 Unknown History aerosol inhaler Shortness Of Breath amitriptyline 10 mg tablet 10 mg PO BID 11/17/19 08/22/22 Unknown History ascorbate calcium (vitamin C) 500 500 mg PO BID 11/17/19 08/22/22 Unknown Hist ory mg tablet aspirin 81 mg tablet,delayed 81 mg PO QAM 11/17/19 08/22/22 Unknown History release (Adult Aspirin Regimen) atorvastatin 40 mg tablet 40 mg PO BEDTIME 11/17/19 08/22/22 Unknown History baclofen 20 mg tablet See Rx Instructions .Route .COMPLEX 11/17/19 08/22/22 Unknown History clopidogrel 75 mg tablet 75 mg PO QAM 11/17/19 08/22/22 Unknown History fluticasone propionate 50 2 spray intranasal DAILY PRN 11/17/19 08/22/22 Unknown History mcg/actuation nasal Allergy Symptoms spray,suspension (Flonase Allergy Relief) gabapentin 300 mg capsule 600 mg PO TID 11/17/19 08/22/22 Unknown History methenamine hippurate 1 gram tablet 1 gm PO BID 11/17/19 08/22/22 Unknown History paroxetine HCl 20 mg tablet 20 mg PO DAILY 11/17/19 08/22/22 Unknown History zinc 50 mg tablet 50 mg PO BEDTIME 11/17/19 08/22/22 Unknown History Lactobacillus acidophilus and 1 cap PO BID 07/13/22 08/22/22 Unknown History rhamnosus 15 billion cell capsule (Probiotic) cholecalciferol (vitamin D3) 25 25 mcg PO BEDTIME 07/13/22 08/22/22 Unknown History mcg (1,000 unit) capsule (Vitamin D3) multivitamin 1 tab PO DAILY 07/13/22 08/22/22 Unknown History vitamin A 2,400 mcg capsule 2,400 mcg PO BEDTIME 07/13/22 08/22/22 Unknown History Blood Builder 1 tab PO DAILY@16 08/14/22 08/22/22 Unknown History bupropion HCl 150 mg tablet,12 hr 150 mg PO BID 08/14/22 08/22/22 Unknown History sustained-release coenzyme Q10 100 mg capsule 100 mg PO BEDTIME 08/14/22 08/22/22 Unknown History (CoQ-10) d-mannose 500 mg capsule 500 mg PO BID 08/14/22 08/22/22 Unknown History esomeprazole magnesium 20 mg 20 mg PO DAILY 08/14/22 08/22/22 Unknown History capsule,delayed release (Nexium) ferrous gluconate 324 mg (38 mg 324 mg PO DAILY@16 08/14/22 08/22/22 Unknown History iron) tablet metformin 1,000 mg tablet 1,000 mg PO BID 08/14/22 08/22/22 Unknown History hydrocodone 5 mg-acetaminophen 325 1 tab PO Q8H PRN MODERATE PAIN 08/15/22 08/22/22 Unknown Rx mg tablet #30 tabs metronidazole 500 mg tablet 500 mg PO Q8H #90 tabs 08/15/22 08/22/22 Unknown Rx sodium hypochlorite 0.125 % 1 applic topical DAILY #473 mL 08/15/22 08/22/22 Unknown Rx solution (Dakin's Solution) cefepime 2 gram solution for 2 g IV Q12H 08/22/22 08/22/22 Unknown History injection nystatin 500,000 unit tablet 500,000 unit PO TID 5 days #15 tabs 08/22/22 Unknown Rx hydrocodone 5 mg-acetaminophen 325 1 tab PO Q8H PRN pain 8 days #24 09/01/22 09/01/22 Unknown Rx mg tablet tabs Allergies Allergy/AdvReac Type Severity Reaction Status Date / Time Penicillins Allergy THROAT Verified 09/01/22 17:14 SWELLS SHUT Sulfa (Sulfonamide Allergy HIVES Verified 09/01/22 17:14 Antibiotics) PFSH Acute PFSH: Medical History (Updated 09/02/22 @ 15:32 by Bennie Alberts MD) ASHD (arteriosclerotic heart disease) Chronic incomplete quadriplegia Chronic indwelling Estes catheter Diabetes no insulin History of bladder stone CYSTOLITHOLAPAXY History of cardiac arrest 2017 post heart attack, prolonged ventilation, trach, peg. History of difficult intubation Went through tongue during emergency procedure Hyperlipidemia Hypertension Iron deficiency Neurogenic bladder secondary to spinal cord injury 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-6) Recurrent UTI Retention of urine due to occlusion of Estes catheter Sleep apnea Surgical History History of cervical spinal surgery History of lumbar surgery History of percutaneous coronary intervention RCA History of percutaneous endoscopic gastrostomy History of tracheostomy subsequently removed, for prolonged ventilation Status post excisional debridement buttocks Family History Mother Hypertension Father Arthritis Denies family history of Anesthesia complication Bleeding disorder Social History (Updated 09/02/22 @ 15:18 by Nita Villatoro MD) Smoking and tobacco status: former smoker Alcohol intake: never Substance/Drug Use: never Caregiver/support person: Yes Lives independently: No Household members: significant other Marital status: Current occupational status: disabled Vitals/I&O/Wt Last Vital Signs Temp 99.1 F 09/02/22 13:31 Pulse 108 H 09/02/22 13:31 Resp 18 09/02/22 13:31 BP 107/71 09/02/22 13:31 Pulse Ox 96 09/02/22 13:31 O2 Del Method 09/02/22 13:31 Weight last 48 hrs Weight 122.47 kg Physical Exam Narrative: Constitutional: Awake and alert, completely covered from head to toe, diaphoretic and mildly tremulous, able to provide history HEENT: Normocephalic, extraocular movements are intact, pupils are reactive, oropharynx with dry mucous membranes Neck: Tracheostomy scar noted Respiratory: Tachypneic, no wheezes or rhonchi Cardiovascular: Tachycardic, regular rhythm, no murmurs Abdomen: Soft, positive bowel sounds, nontender : Some intertriginous erythema noted, normal phallus, Estes in place Extremities: Extensive muscle wasting, some nodularity of the calf muscle bilaterally right more so than left, no pitting edema Skin: Abrasions noted to both shins left more so than right, minor, scabbed, scabbed small sore at the tip of the great toe on the right, skin is dry, posterior wounds not currently evaluated, erythema noted in the groin Neuro: Speech clear, moves both upper extremities, no movement lower extremities, tremulous Psych: Normal affect Data : 09/02/22 14:05 09/02/22 14:05 Other Labs: Radiology Impressions Chest X-Ray 09/02/22 13:05 IMPRESSION: 1. No acute cardiopulmonary finding. 2. Right-sided PICC line appearing to be in satisfactory position. CT RIGHT FEMUR WITH CONTRAST 09/01/22 13:05 Marked narrowing of the RIGHT hip joint. Dystrophic ossification within the soft tissues surrounding the RIGHT hip. No fracture. Mild narrowing of the hip joint. Soft tissue ulceration tract containing air extends from the lateral RIGHT hip to abut the cortical surface of the greater trochanter. No cortical destruction. There is also a soft tissue track extending to the ischial tuberosity. There is loss of the normal cortex. Both lytic and sclerotic changes. The abscess seen abutting the RIGHT ischial tuberosity and the prior study has resolved. The track is now widely patent. Extensive foci of air have progressed throughout the soft tissues of the pelvis. Numerous air foci are contiguous with the large RIGHT gluteal tract and extends through the RIGHT perineum into the soft tissues over the anterior pelvis and through the scrotum. Small amount of air crosses the midline to the LEFT scrotal sac and perineum. Increasing air along the medial upper RIGHT thigh. Estes catheter present in a nondistended urinary bladder. Numerous small lymph nodes in the RIGHT groin. IMPRESSION: 1.? New extensive air throughout the soft tissues of the pelvis involving the perineum, scrotum and medial RIGHT thigh. Findings consistent with Danielle gangrene. 2.? Soft tissue decubitus ulcers involving the RIGHT gluteal region extends to the ischial tuberosity and over the RIGHT lateral greater trochanter. 3.? Abscess and osteomyelitis involving the RIGHT ischial tuberosity seen on 08/11/2022 has moderately improved. No progression of osteomyelitis. ? ?Notified Rj Roy MD at 09/02/2022 9:55 AM. ? Laboratory Results POC Glucose 226 mg/dL (70-110) H 09/02/22 13:48 Laboratory Last Values WBC 17.7 10^3/uL (4.0-10.0) H 09/02/22 14:05 RBC 5.48 10^6/uL (4.1-5.3) H 09/02/22 14:05 Hgb 10.7 g/dL (11.7-16.6) L 09/02/22 14:05 Hct 38.1 % (42.0-52.0) L 09/02/22 14:05 MCV 69.5 fl (80-94) L 09/02/22 14:05 MCH 19.5 pg (28.0-34.0) L 09/02/22 14:05 MCHC 28.1 g/dL (30.0-36.0) L 09/02/22 14:05 RDW 23.7 % (12.1-15.1) H 09/02/22 14:05 Plt Count 660 10^3/cmm (130-400) H 09/02/22 14:05 MPV 9.0 fL (7.4-10.4) 09/02/22 14:05 Neut % (Auto) 81.1 % 09/02/22 14:05 Lymph % (Auto) 6.2 % 09/02/22 14:05 [place] % (Auto) 9.2 % 09/02/22 14:05 Eos % (Auto) 2.2 % 09/02/22 14:05 Baso % (Auto) 0.7 % 09/02/22 14:05 Neut # (Auto) 14.39 10^3/uL (1.8-7.7) H 09/02/22 14:05 Lymph # (Auto) 1.1 10^3/uL (0.8-4.8) 09/02/22 14:05 [place] # (Auto) 1.6 10^3/uL (0.2-0.9) H 09/02/22 14:05 Eos # (Auto) 0.4 10^3/uL (0.0-0.8) 09/02/22 14:05 Baso # (Auto) 0.1 10^3/uL (0.0-0.1) 09/02/22 14:05 Nucleated RBC % (auto) 0 % 09/02/22 14:05 Nucleated RBCs # 0.0 /100WBC 09/02/22 14:05 PT 15.20 SECONDS (12.1-14.9) H 09/02/22 14:05 INR 1.16 (0.8-1.2) 09/02/22 14:05 APTT 30.2 SECONDS (23.9-36.7) 09/02/22 14:05 Sodium 133 mmol/L (136-145) L 09/02/22 14:05 Potassium 4.3 mmol/L (3.5-5.1) 09/02/22 14:05 Chloride 94 mmol/L (98-107) L 09/02/22 14:05 Carbon Dioxide 25 mmol/L (22-29) 09/02/22 14:05 Anion Gap 18.3 (5-19) 09/02/22 14:05 BUN 16 mg/dL (6-20) 09/02/22 14:05 Creatinine 0.4 mg/dL (0.7-1.2) L 09/02/22 14:05 GFR Calculation 225.0 mL/min (90-130) H 09/02/22 14:05 Glucose 202 mg/dL (65-115) H 09/02/22 14:05 POC Glucose 226 mg/dL (70-110) H 09/02/22 13:48 Calculated Osmolality 283 mOsm/kg (285-295) L 09/02/22 14:05 Calcium 9.7 mg/dL (8.5-10.5) 09/02/22 14:05 Blood Type O Positive 09/02/22 14:05 Rho(D) Type Positive 09/02/22 14:05 A&P Assessment and plan (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 Roy, has been on recent antibiotics with cefepime and Flagyl (4) Diabetes: Hemoglobin A1c in July 2022 6.4, chronically on metformin Qualifiers: Diabetes mellitus complication detail: with other skin ulcer Diabetes mellitus complication status: with skin complications Diabetes mellitus assisted insulin use: without assisted use Diabetes mellitus type: type 2 Qualified Code(s): E11.622 - Type 2 diabetes mellitus with other skin ulcer (5) ASHD (arteriosclerotic heart disease): History of carotid percutaneous intervention, associated with cardiac arrest in 2017 Echocardiogram July 2022 demonstrated left ventricular ejection fraction at 50 to 55%, inadequate for evaluation of wall motion abnormalities Twelve-lead EKG today with sinus tachycardia, inverted T wave in aVL Denies any recent issues with chest pain, shortness of breath Chronically on aspirin and Plavix (6) Hypertension: Currently quite elevated in part related to pain Qualifiers: Hypertension type: primary hypertension Qualified Code(s): I10 - Essential (primary) hypertension (7) Hyperlipidemia: Chronically on statin therapy Qualifiers: Hyperlipidemia type: other hyperlipidemia Qualified Code(s): E78.49 - Other hyperlipidemia (8) Neurogenic bladder: With chronic indwelling Estes catheter Follows with Dr. 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 Wheelchair dependent Able to utilize upper arms some but dependent on ADLs Plan Inpatient admission Surgery consultation Urology consultation Continue Flagyl and cefepime which patient has been on from an outpatient basis Wound cultures during OR Get blood cultures Check lactic acid on blood in lab Monitor for developing sepsis post-operatively, currently showing tachycardia, low grade temperature, leukocytosis and known to have infectious source as d escribed but no current end organ damage identified IV fluids Postoperative wound management as per surgical recommendations Sliding scale insulin for diabetes control Chronically on aspirin and Plavix, will hold aspirin and continue Plavix currently unless postoperative contraindication, PCI was in 2017 Continue atorvastatin Not on chronic beta-blockade Plan to continue a lower dose of patient's home gabapentin and baclofen at usual dosing as possible Other pain control as blood pressure and heart rate allow Continue home Paxil Continue iron therapy Monitor for need for transfusion, required 1 in July of this year Monitor for aspiration postoperatively, presumably had aspiration in July of this year based on available information Breathing treatments as needed Continue probiotic Oxygen therapy as needed Supportive care otherwise Currently anticipate disposition home with home health and ongoing wound care but depending on clinical course and extent of wounds postoperatively may benefit from prolonged acute care or skilled placement consideration Plan for emergent surgery today discussed with patient and his briefly and both were given an opportunity to ask questions. They understand the need for surgery. Full code Attestations Medical Necessity Statement*: Anticipated stay greater than two midnights in this gentleman with chronic wounds that have progressed despite outpatient treatment with wound care and IV antibiotics, now demonstrating evidence of Danielle's gangrene. Requiring emergent surgical intervention, continued IV antibiotics, frequent wound manage ment postoperatively and supportive care as necessary in the setting of comorbidities described. 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
[2022-09-02 14:16] LABS: Basophils # 0.1 10^3/uL (0.0-0.1); Basophils % 0.7 %; Eosinophils # 0.4 10^3/uL (0.0-0.8); Eosinophils % 2.2 %; Hematocrit 38.1 % (42.0-52.0); Hemoglobin 10.7 g/dL (11.7-16.6); Lymphocytes # 1.1 10^3/uL (0.8-4.8); Lymphocytes % 6.2 %; Mean Corpuscular HGB Conc 28.1 g/dL (30.0-36.0); Mean Corpuscular Hemoglobin 19.5 pg (28.0-34.0); Mean Corpuscular Volume 69.5 fl (80-94); Monocytes # 1.6 10^3/uL (0.2-0.9); Monocytes % 9.2 %; Neutrophils # 14.39 10^3/uL (1.8-7.7); Neutrophils % 81.1 %; Nucleated Red Blood Cells % 0 %; Platelet Count 660 10^3/cmm (130-400); Red Blood Count 5.48 10^6/uL (4.1-5.3); Red Cell Distribution Width 23.7 % (12.1-15.1); White Blood Count 17.7 10^3/uL (4.0-10.0)
--- NOTE | 2022-09-02 14:28 | PC.NURSE ---
picc line in right upper arm present prior to arrival to ed.
[2022-09-02 14:29] LABS: INR 1.16 (0.8-1.2)
[2022-09-02 14:30] LABS: Partial Thromboplastin Time 30.2 SECONDS (23.9-36.7)
[2022-09-02 14:38] LABS: Anion Gap 18.3 (5-19); Blood Urea Nitrogen 16 mg/dL (6-20); Calcium 9.7 mg/dL (8.5-10.5); Carbon Dioxide 25 mmol/L (22-29); Chloride 94 mmol/L (98-107); Glucose 202 mg/dL (65-115); Osmolality Calculated 283 mOsm/kg (285-295); Potassium 4.3 mmol/L (3.5-5.1); Sodium 133 mmol/L (136-145)
--- NOTE | 2022-09-02 14:54 | P.CONIM_ITS ---
Providers/Reason For Consult Consulting Physician/Specialty*: Urology/Alberts Reason for Consult*: Scrotal infection Requesting Physician: Kirill Attending Physician: Rj Roy MD Primary Care Provider: JC Fonseca History of Present Illness History of Present Illness David Chen is a 52 year old quadriplegic white male with a history of neurogenic bladder secondary to spinal cord injury. I have followed him for many years related to the neurogenic bladder issues and he has been at times utilizing self-catheterization at other times indwelling Olivas catheter. He was last seen in April 2021 with no significant progressive symptoms. He had been treated shortly before that with Macrobid for UTI. One of his major problems was premature encrustation of Olivas catheter but we were unable to maintain a steady supply of RENACIDIN. Saline flushes did seem to help preserve the duration of any particular catheter. He was scheduled for follow-up about 1 year. That follow-up did not occur. Is recently been followed aggressively and wound care clinic and was found to have large abscess of his thigh mostly posteriorly. A CT scan though done today in follow-up of I&D showed gas extending what appears to be from the posterior thigh wound into the right anterior medial thigh as well as into the scrotum. While there is some gas in the tissue of the most superficial aspect of the right hemiscrotum most of the gas is actually deep. This appears to be an extension as opposed to a separate site of gas-forming infection Physical exam is more consistent with a scrotal phlegmon as opposed to Review of Systems Const: Reports: fever(s), chills and malaise Eyes: Denies: change in vision ENMT: Denies: hoarseness Card: Reports: palpitations; Denies: chest pain Resp: Denies: productive cough, wheezing or stridor GI: Denies: nausea or vomiting : Reports: other (Chronic urinary retention managed via Olivas. No scrotal sensation due to q) Musc: Reports: other (Extremity atrophy) Skin/Breast: Denies: rash Neuro: Reports: other (Quadriplegia); Denies: confusion or difficulty communicating thoughts Psych: Reports: anxiety Sarwat/Lymph: Denies: easy bruising, easy bleeding or enlarged lymph nodes All/Imm: Denies: acute wheezing Medications/Allergies Home Medications Medication Instructions Recorded Confirmed Last Taken Type albuterol sulfate 90 mcg/actuation 2 puff inhalation Q6H PRN 11/17/19 09/03/22 Unknown History aerosol inhaler Shortness Of Breath amitriptyline 10 mg tablet 10 mg PO BID 11/17/19 09/03/22 Unknown History ascorbate calcium (vitamin C) 500 500 mg PO BID 11/17/19 09/03/22 Unknown History mg tablet aspirin 81 mg tablet,delayed 81 mg PO QAM 11/17/19 09/03/22 Unknown History release (Adult Aspirin Regimen) atorvastatin 40 mg tablet 40 mg PO BEDTIME 11/17/19 09/03/22 Unknown History baclofen 20 mg tablet See Rx Instructions .Route .COMPLEX 11/17/19 09/03/22 Unknown History clopidogrel 75 mg tablet 75 mg PO QAM 11/17/19 09/03/22 Unknown History fluticasone propionate 50 2 spray intranasal DAILY PRN 11/17/19 09/03/22 Unknown History mcg/actuation nasal Allergy Symptoms spray,suspension (Flonase Allergy Relief) gabapentin 300 mg capsule 600 mg PO TID 11/17/19 09/03/22 Unknown History methenamine hippurate 1 gram tablet 1 gm PO BID 11/17/19 09/03/22 Unknown History paroxetine HCl 20 mg tablet 20 mg PO DAILY 11/17/19 09/03/22 Unknown History Lactobacillus acidophilus and 1 cap PO BID 07/13/22 09/03/22 Unknown History rhamnosus 15 billion cell capsule (Probiotic) cholecalciferol (vitamin D3) 25 25 mcg PO BEDTIME 07/13/22 09/03/22 Unknown History mcg (1,000 unit) capsule (Vitamin D3) multivitamin 1 tab PO DAILY 07/13/22 09/03/22 Unknown History vitamin A 2,400 mcg capsule 2,400 mcg PO BEDTIME 07/13/22 09/03/22 Unknown History Blood Builder 1 tab PO DAILY@16 08/14/22 09/03/22 Unknown History bupropion HCl 150 mg tablet,12 hr 150 mg PO BID 08/14/22 09/03/22 Unknown His tory sustained-release coenzyme Q10 100 mg capsule 100 mg PO BEDTIME 08/14/22 09/03/22 Unknown History (CoQ-10) d-mannose 500 mg capsule 500 mg PO BID 08/14/22 09/03/22 Unknown History esomeprazole magnesium 20 mg 20 mg PO DAILY 08/14/22 09/03/22 Unknown History capsule,delayed release (Nexium) ferrous gluconate 324 mg (38 mg 324 mg PO DAILY@16 08/14/22 09/03/22 Unknown H istory iron) tablet metformin 1,000 mg tablet 1,000 mg PO BID 08/14/22 09/03/22 Unknown History hydrocodone 5 mg-acetaminophen 325 1 tab PO Q8H PRN MODERATE PAIN 08/15/22 09/03/22 Unknown Rx mg tablet #30 tabs metronidazole 500 mg tablet 500 mg PO Q8H #90 tabs 08/15/22 09/03/22 Unknown Rx cefepime 2 gram solution for 2 g IV Q12H 08/22/22 09/03/22 Unknown History injection nystatin 500,000 unit tablet 500,000 unit PO TID 5 days #15 tabs 08/22/22 09/03/22 Unknown Rx hydrocodone 5 mg-acetaminophen 325 1 tab PO Q8H PRN pain 8 days #24 09/01/22 09/03/22 Unknown Rx mg tablet tabs zinc acetate 50 mg (zinc) capsule 50 mg PO BEDTIME 09/03/22 09/03/22 Unknown History Allergies Allergy/AdvReac Type Severity Reaction Status Date / Time Penicillins Allergy THROAT Verified 09/03/22 08:43 SWELLS SHUT Sulfa (Sulfonamide Allergy HIVES Verified 09/03/22 08:43 Antibiotics) PFSH Acute PFSH: Medical History (Updated 09/02/22 @ 19:47 by Nita Villatoro MD) ASHD (arteriosclerotic heart disease) Chronic incomplete quadriplegia Chronic indwelling Olivas catheter Diabetes no insulin History of bladder stone CYSTOLITHOLAPAXY History of cardiac arrest 2017 post heart attack, prolonged ventilation, trach, peg. History of difficult intubation Went through tongue during emergency procedure Hyperlipidemia Hypertension Iron deficiency Neurogenic bladder secondary to spinal cord injury 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-6) Recurrent UTI Retention of urine due to occlusion of Olivas catheter Sleep apnea Surgical History (Updated 09/02/22 @ 19:47 by Nita Villatoro MD) History of cervical spinal surgery History of lumbar surgery History of percutaneous coronary intervention RCA History of percutaneous endoscopic gastrostomy History of tracheostomy subsequently removed, for prolonged ventilation Status post excisional debridement buttocks Status post incision and drainage (09/02/22) With wide debridement of right posterior thigh abscess, jet lavage irrigation and placement of wound VAC by Dr. Roy along with I&D of right hemiscrotal abscess by Dr. Alberts Family History Mother Hypertension Father Arthritis Denies family history of Anesthesia complication Bleeding disorder Social History (Updated 09/02/22 @ 15:18 by Nita Villatoro MD) Smoking and tobacco status: former smoker Alcohol intake: never Substance/Drug Use: never Caregiver/support person: Yes Lives independently: No Household members: significant other Marital status: Current occupational status: disabled Vitals/I&O/Wt Last Vital Signs Temp 99.1 F 09/02/22 13:31 Pulse 111 H 09/02/22 14:34 Resp 20 H 09/02/22 14:34 BP 154/97 09/02/22 14:34 Pulse Ox 94 09/02/22 14:34 O2 Del Method 09/02/22 14:34 Weight last 48 hrs Weight 270 lb Physical Exam 2 Narrative: Alert oriented. Appears ill. No audible wheezing Tachycardic. Regular rhythm. Abdomen is soft. There is no skin changes or suspicious infectious findings Olivas catheter in place. Normal phallus. Scrotum is erythematous and tense on the right side. Left feels fairly normal although the skin is somewhat erythematous. There is no eschar or necrosis or drainage from the right hemiscrotum. Could not feel any distinct crepitus. Seems more c/w scrotal abscess. Involvement of infectious changes extends onto the right thigh medially and anteriorly. Neurologic: Quadriplegia. Extremities no pretibial edema. Data : 09/03/22 06:05 09/03/22 06:05 A&P Assessment and plan (1) Scrotal abscess: To OR emergently (2) Neurogenic bladder: (3) Urinary retention: (4) Recurrent UTI: (5) Quadriplegia: (6) Chronic indwelling Olivas catheter: Plan To the operating room emergently for scrotal exploration, incision and drainage, debridement. Will perform concurrently with Dr. Roy who will be addressing his thigh and leg involvement Consult Attestations Medical Necessity Statement: Life-threatening infection Coding Level of Care Code Acute Facility Maintenance Mechanic for Chg Fwd Diagnoses Scrotal abscess N49.2 Neurogenic bladder N31.9 Urinary retention R33.9 Recurrent UTI N39.0 Quadriplegia G82.50 Chronic indwelling Olivas catheter Z96.0
--- NOTE | 2022-09-02 15:07 | P.CONIM_ITS ---
Providers/Reason For Consult Consulting Physician/Specialty*: Dr. Roy/wound care services Reason for Consult*: Right gluteal and thigh abscess Requesting Physician: Dr. Pearson Attending Physician: Dr. Villatoro Primary Care Provider: JC Fonseca History of Present Illness History of Present Illness David Chen is a 52 year old male with a history of incomplete quadriplegia for over 20 years who has been followed in wound care services periodically since that time for chronic wounds which include mid sacral, right trochanteric, and most recently right gluteal wound which began in mid to late summer. He has been receiving local wound care for this wound which does extend down to the ischium and has been documented to be consistent with osteomyelitis. He was recently hospitalized where he was evaluated by Dr. Shannon from our infectious disease service and initiated on IV cefepime through a PICC line that was placed during that hospitalization and Flagyl. In his wound care visit of last week he had noted increasing discomfort in his thigh and on his visit yesterday, and noted spontaneous expression of purulent material the evening before. On examination, I was able to pass digitally through his gluteal wound into the posterior aspect of his right thigh and extend down at least 1/2-2/3 the distance of the thigh length. Entire Kerlix can be placed in this abscess cavity. We had initially made preparations for elective opening of this area and placement of the wound VAC once we had made arrangements for a home wound VAC system to be available. 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 With this information, we recommended expedited admission and expiration. I have been in contact with my colleague, Dr. Alberts from our urology service and he has been gracious enough to assist with this exploration. Upon initial bedside inspection, Dr. Alberts feels that this may not actually represent Danielle's gangrene but may be continued extension from the gluteal and right thigh process into the perineal region. Dr. Villatoro from our hospitalist service has been gracious enough to assist with admission and medical management of this complex situation given his numerous comorbidities. At this time, Mr. Chen is noted to be diaphoretic which he states is his neurologic response to pain. Review of Systems Const: Reports: fever(s), body aches and fatigue ENMT: Denies: throat pain Card: Denies: chest pain, palpitations, irregular heart rhythm or edema Resp: Reports: dyspnea; Denies: productive cough GI: Denies: abdominal pain, nausea, vomiting or hematemesis : Denies: flank pain Musc: Reports: extremity pain and muscle cramps; Denies: neck pain Neuro: Reports: numbness in extremities Psych: Reports: anxiety Medications/Allergies Home Medications Medication Instructions Recorded Confirmed Last Taken Type albuterol sulfate 90 mcg/actuation 2 puff inhalation Q6H PRN 11/17/19 08/22/22 Unknown History aerosol inhaler Shortness Of Breath amitriptyline 10 mg tablet 10 mg PO BID 11/17/19 08/22/22 Unknown History ascorbate calcium (vitamin C) 500 500 mg PO BID 11/17/19 08/22/22 Unknown History mg tablet aspirin 81 mg tablet,delayed 81 mg PO QAM 11/17/19 08/22/22 Unknown History release (Adult Aspirin Regimen) atorvastatin 40 mg tablet 40 mg PO BEDTIME 11/17/19 08/22/22 Unknown History baclofen 20 mg tablet See Rx Instructions .Route .COMPLEX 11/17/19 08/22/22 Unknown History clopidogrel 75 mg tablet 75 mg PO QAM 11/17/19 08/22/22 Unknown History fluticasone propionate 50 2 spray intranasal DAILY PRN 11/17/19 08/22/22 Unknown History mcg/actuation nasal Allergy Symptoms spray,suspension (Flonase Allergy Relief) gabapentin 300 mg capsule 600 mg PO TID 11/17/19 08/22/22 Unknown History methenamine hippurate 1 gram tablet 1 gm PO BID 11/17/19 08/22/22 Unknown History paroxetine HCl 20 mg tablet 20 mg PO DAILY 11/17/19 08/22/22 Unknown History zinc 50 mg tablet 50 mg PO BEDTIME 11/17/19 08/22/22 Unknown History Lactobacillus acidophilus and 1 cap PO BID 07/13/22 08/22/22 Unknown History rhamnosus 15 billion cell capsule (Probiotic) cholecalciferol (vitamin D3) 25 25 mcg PO BEDTIME 07/13/22 08/22/22 Unknown History mcg (1,000 unit) capsule (Vitamin D3) multivitamin 1 tab PO DAILY 07/13/22 08/22/22 Unknown History vitamin A 2,400 mcg capsule 2,400 mcg PO BEDTIME 07/13/22 08/22/22 Unknown History Blood Builder 1 tab PO DAILY@16 08/14/22 08/22/22 Unknown History bupropion HCl 150 mg tablet,12 hr 150 mg PO BID 08/14/22 08/22/22 Unknown History sustained-release coenzyme Q10 100 mg capsule 100 mg PO BEDTIME 08/14/22 08/22/22 Unknown History (CoQ-10) d-mannose 500 mg capsule 500 mg PO BID 08/14/22 08/22/22 Unknown History esomeprazole magnesium 20 mg 20 mg PO DAILY 08/14/22 08/22/22 Unknown History capsule,delayed release (Nexium) ferrous gluconate 324 mg (38 mg 324 mg PO DAILY@16 08/14/22 08/22/22 Unknown History iron) tablet metformin 1,000 mg tablet 1,000 mg PO BID 08/14/22 08/22/22 Unknown History hydrocodone 5 mg-acetaminophen 325 1 tab PO Q8H PRN MODERATE PAIN 08/15/22 08/22/22 Unknown Rx mg tablet #30 tabs metronidazole 500 mg tablet 500 mg PO Q8H #90 tabs 08/15/22 08/22/22 Unknown Rx sodium hypochlorite 0.125 % 1 applic topical DAILY #473 mL 08/15/22 08/22/22 Unknown Rx solution (Dakin's Solution) cefepime 2 gram solution for 2 g IV Q12H 08/22/22 08/22/22 Unknown History injection nystatin 500,000 unit tablet 500,000 unit PO TID 5 days #15 tabs 08/22/22 Unknown Rx hydrocodone 5 mg-acetaminophen 325 1 tab PO Q8H PRN pain 8 days #24 09/01/22 09/01/22 Unknown Rx mg tablet tabs Allergies Allergy/AdvReac Type Severity Reaction Status Date / Time Penicillins Allergy THROAT Verified 09/01/22 17:14 SWELLS SHUT Sulfa (Sulfonamide Allergy HIVES Verified 09/01/22 17:14 Antibiotics) PFSH Acute PFSH: Medical History ASHD (arteriosclerotic heart disease) Chronic incomplete quadriplegia Chronic indwelling Olivas catheter Diabetes no insulin History of bladder stone CYSTOLITHOLAPAXY History of cardiac arrest 2017 post heart attack, prolonged ventilation, trach, peg. History of difficult intubation Went through tongue during emergency procedure Hyperlipidemia Hypertension Iron deficiency Neurogenic bladder secondary to spinal cord injury 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-6) Recurrent UTI Retention of urine due to occlusion of Olivas catheter Surgical History History of cervical spinal surgery History of lumbar surgery History of percutaneous coronary intervention RCA History of percutaneous endoscopic gastrostomy History of tracheostomy subsequently removed, for prolonged ventilation Status post excisional debridement buttocks Family History Mother Hypertension Father Arthritis Denies family history of Anesthesia complication Bleeding disorder Social History Smoking and tobacco status: former smoker Alcohol intake: never Substance/Drug Use: never Caregiver/support person: Yes Lives independently: No Household members: significant other Marital status: Current occupational status: disabled Vitals/I&O/Wt Last Vital Signs Temp 99.1 F 09/02/22 13:31 Pulse 111 H 09/02/22 14:34 Resp 20 H 09/02/22 14:34 BP 154/97 09/02/22 14:34 Pulse Ox 94 09/02/22 14:34 O2 Del Method 09/02/22 14:34 Weight last 48 hrs Weight 270 lb Physical Exam HENMT: COMMON NORMALS: normocephalic, atraumatic, hearing grossly normal bilaterally and external ears normal HEAD & SCALP: normocephalic and atraumatic EXTERNAL EAR: Yes external ears normal Neck/C-Spine: COMMON NORMALS: no lymphadenopathy; negative for full ROM Resp: COMMON NORMALS: normal respiratory effort and clear to auscultation bilaterally AUSCULTATION: clear to auscultation bilaterally Cardio: COMMON NORMALS: regular rate, regular rhythm, S1 normal heart sound present and No murmurs present (Cardio) RATE: regular rate RHYTHM: regular rhythm HEART SOUNDS: S1 normal heart sound present GI: COMMON NORMALS: Normal to inspection, nondistended, normoactive bowel sounds present Extremity: NARRATIVE EXTREMITY EXAM: Contractions of upper extremities though, with weakness with motion no able to perform some motor activities. Paralysis lower extremities. OTHER: Deep right gluteal abscess which extends to soft tissue coverage ischium and then tracks posteriorly and inferiorly along the medial and posterior aspects of the right thigh with firmness noted in the perineum. There is also a chronic mid sacral wound which tracks approximately 4 cm. There is a right trochanteric wound which tracks anteriorly approximately 4 4- 1/2 cm in the subcutaneous plane. Both of these wounds are chronic and relatively clean. Neuro: OTHER: Longstanding incomplete quadriplegia. Psych: COMMON NORMALS: mental status grossly normal, Normal thought process present, cooperative, normal affect and speech normal SPEECH: Yes normal spe ech THOUGHT PROCESS: Normal thought process present Data : 09/02/22 14:05 09/02/22 14:[address]: Radiologist's impression: CT/CT femur RT w con [id number] IMPRESSION: ? 1.? New extensive air throughout the soft tissues of the pelvis involving the perineum, scrotum and medial RIGHT thigh. Findings consistent with Danielle gangrene. 2.? Soft tissue decubitus ulcers involving the RIGHT gluteal region extends to the ischial tuberosity and over the RIGHT lateral greater trochanter. 3.? Abscess and osteomyelitis involving the RIGHT ischial tuberosity seen on 08/11/2022 has moderately improved. No progression of osteomyelitis. ? A&P Assessment and plan (1) Pressure ulcer of right buttock, stage 4: We will plan to proceed in concert with Dr. Alebrts and follow his groin and perineal exploration with opening widely the right gluteal wound and extending down posteriorly to the right thigh to debride all devitalized tissue provide adequate exposure for local wound treatment. At that time, we will be prepared for placement of wound VAC to assist in management of this large wound in this gentleman with quadriplegia. Rationale for this was carefully discussed with Mr. Chen and his significant other. They do wish to proceed. I greatly appreciate the expertise and assistance of Dr. Villatoro and Dr. Alberts. Coding Level of Care Code Established Pt Acute Food And Beverage Intern for Chg Fwd Patient Type Established History Detailed Exam Expanded Problem Focused Medical Decision Making Moderate Complexity Diagnoses Pressure ulcer of right buttock, stage 4 L89.314 Time Spent (min) 30
[2022-09-02] MEDS: scopolamine 1.5 Patch 1 PATCH TRANSDERMA (15:12)
[2022-09-02] MEDS: sodium chloride 0.9% 1,000 ML 30 ML IV (15:12)
[2022-09-02 15:23] LABS: Lactic Sepsis W/Reflex 2.2 mmol/L (0.5-2.2)
[2022-09-02] MEDS: clindamycin 600 MG/50 ML PREMIX 100 MG IV (15:25)
[2022-09-02] MEDS: vancomycin 1,500 MG/300 ML PIGGYBACK 200 MG IV (15:42)
--- NOTE | 2022-09-02 15:57 | ANES.PREANE2 ---
Pre-Anesthetic Assessment Height/Weight: Height 1.8 m Weight 122.47 kg Temp Pulse Resp BP Pulse Ox O2 Del Method 100.0 F H 111 H 18 151/97 94 09/02/22 15:05 09/02/22 15:05 09/02/22 15:05 09/02/22 15:05 09/02/22 15:05 09/02/22 15:05 Operation Date: 09/02/22 15:00 Proposed Procedures p Incision And Drainage(Right) - Rj Roy MD s Scrotal Debridement(Right) - Bennie Alberts MD Familial anesthetic complications: none Was Beta Marlene taken within 24 hours: N/A Was Clonidine taken within 24 hours: N/A Last intake: Intake Last Liquid Date 09/01/22 Last Liquid Time 19:00 Last Solid Date 09/01/22 Last Solid Time 19:00 Social No alcohol and No tobacco Exam alert, oriented x 3, clear to auscultation bilaterally and regular rate & rhythm Airway Submandibular: within normal limits Cervical ROM: within normal limits Mallampati: Class II Dentition: chipped Comments: Comments: ?h/o difficult intubation, apparently in past EMS had difficulty and placed ETT through tongue? Pulmonary h/o trach CV/HEM Anemia, Coronary Artery Disease, Hypertension and Myocardial Infarction GI Gastroesophageal Reflux Disease Metabolic Diabetes Mellitus and Morbid Obesity Neuropsych Quadraplegia Anesthetic Plan ASA status: 3 Anesthesia: General Medications/Allergies Home Medications Medication Instructions Recorded Confirmed Last Taken Type albuterol sulfate 90 mcg/actuation 2 puff inhalation Q6H PRN 11/17/19 08/22/22 Unknown History aerosol inhaler Shortness Of Breath amitriptyline 10 mg tablet 10 mg PO BID 11/17/19 08/22/22 Unknown History ascorbate calcium (vitamin C) 500 500 mg PO BID 11/17/19 08/22/22 Unknown History mg tablet aspirin 81 mg tablet,delayed 81 mg PO QAM 11/17/19 08/22/22 Unknown History release (Adult Aspirin Regimen) atorvastatin 40 mg tablet 40 mg PO BEDTIME 11/17/19 08/22/22 Unknown History baclofen 20 mg tablet See Rx Instructions .Route .COMPLEX 11/17/19 08/22/22 Unknown History clopidogrel 75 mg tablet 75 mg PO QAM 11/17/19 08/22/22 Unknown History fluticasone propionate 50 2 spray intranasal DAILY PRN 11/17/19 08/22/22 Unknown History mcg/actuation nasal Allergy Symptoms spray,suspension (Flonase Allergy Relief) gabapentin 300 mg capsule 600 mg PO TID 11/17/19 08/22/22 Unknown History methenamine hippurate 1 gram tablet 1 gm PO BID 11/17/19 08/22/22 Unknown History paroxetine HCl 20 mg tablet 20 mg PO DAILY 11/17/19 08/22/22 Unknown History zinc 50 mg tablet 50 mg PO BEDTIME 11/17/19 08/22/22 Unknown History Lactobacillus acidophilus and 1 cap PO BID 07/13/22 08/22/22 Unknown History rhamnosus 15 billion cell capsule (Probiotic) cholecalciferol (vitamin D3) 25 25 mcg PO BEDTIME 07/13/22 08/22/22 Unknown History mcg (1,000 unit) capsule (Vitamin D3) multivitamin 1 tab PO DAILY 07/13/22 08/22/22 Unknown History vitamin A 2,400 mcg capsule 2,400 mcg PO BEDTIME 07/13/22 08/22/22 Unknown History Blood Builder 1 tab PO DAILY@16 08/14/22 08/22/22 Unknown History bupropion HCl 150 mg tablet,12 hr 150 mg PO BID 08/14/22 08/22/22 Unknown History sustained-release coenzyme Q10 100 mg capsule 100 mg PO BEDTIME 08/14/22 08/22/22 Unknown History (CoQ-10) d-mannose 500 mg capsule 500 mg PO BID 08/14/22 08/22/22 Unknown History esomeprazole magnesium 20 mg 20 mg PO DAILY 08/14/22 08/22/22 Unknown History capsule,delayed release (Nexium) ferrous gluconate 324 mg (38 mg 324 mg PO DAILY@16 08/14/22 08/22/22 Unknown History iron) tablet metformin 1,000 mg tablet 1,000 mg PO BID 08/14/22 08/22/22 Unknown History hydrocodone 5 mg-acetaminophen 325 1 tab PO Q8H PRN MODERATE PAIN 08/15/22 08/22/22 Unknown Rx mg tablet #30 tabs metronidazole 500 mg tablet 500 mg PO Q8H #90 tabs 08/15/22 08/22/22 Unknown Rx sodium hypochlorite 0.125 % 1 applic topical DAILY #473 mL 08/15/22 08/22/22 Unknown Rx solution (Dakin's Solution) cefepime 2 gram solution for 2 g IV Q12H 08/22/22 08/22/22 Unknown History injection nystatin 500,000 unit tablet 500,000 unit PO TID 5 days #15 tabs 08/22/22 Unknown Rx hydrocodone 5 mg-acetaminophen 325 1 tab PO Q8H PRN pain 8 days #24 09/01/22 09/01/22 Unknown Rx mg tablet tabs Allergies Allergy/AdvReac Type Severity Reaction Status Date / Time Penicillins Allergy THROAT Verified 09/01/22 17:14 SWELLS SHUT Sulfa (Sulfonamide Allergy HIVES Verified 09/01/22 17:14 Antibiotics) Current Medications Generic Name Dose Route Start Last Admin Trade Name Freq PRN Reason Stop Dose Admin Sodium Chloride 1,000 mls @ 30 mls/hr 09/02/22 15:00 09/02/22 15:12 Sodium Chloride 0.9% IV 09/03/22 14:59 30 mls/hr .Q24H OPAL Administration PFSH Anesthesia Medical History (Updated 09/02/22 @ 15:32 by Bennie Alberts MD) ASHD (arteriosclerotic heart disease) Chronic incomplete quadriplegia Chronic indwelling Olivas catheter Diabetes no insulin History of bladder stone CYSTOLITHOLAPAXY History of cardiac arrest 2016 post heart attack, prolonged ventilation, trach, peg. History of difficult intubation Went through tongue during emergency procedure Hyperlipidemia Hypertension Iron deficiency Neurogenic bladder secondary to spinal cord injury 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-6) Recurrent UTI Retention of urine due to occlusion of Olivas catheter Sleep apnea Surgical History History of cervical spinal surgery History of lumbar surgery History of percutaneous coronary intervention RCA History of percutaneous endoscopic gastrostomy History of tracheostomy subsequently removed, for prolonged ventilation Status post excisional debridement buttocks Family History Mother Hypertension Father Arthritis Denies family history of Anesthesia complication Bleeding disorder Social History (Updated 09/02/22 @ 15:18 by Nita Villatoro MD) Smoking and tobacco status: former smoker Alcohol intake: never Substance/Drug Use: never Caregiver/support person: Yes Lives independently: No Household members: significant other Marital status: Current occupational status: disabled Data Anesthesia : 09/02/22 14:05 09/02/22 14:05 Short CBC 09/02/22 Range/Units 14:05 WBC 17.7 H (4.0-10.0) 10^3/uL Hgb 10.7 L (11.7-16.6) g/dL Hct 38.1 L (42.0-52.0) % MCV 69.5 L (80-94) fl Plt Count 660 H (130-400) 10^3/cmm Neut % (Auto) 81.1 % Neut # (Auto) 14.39 H (1.8-7.7) 10^3/uL BMP 09/02/22 14:05 Sodium 133 L Potassium 4.3 Chloride 94 L Carbon Dioxide 25 BUN 16 Creatinine 0.4 L Glucose 202 H Calcium 9.7 Blood Bank 09/02/22 14:05 Blood Type O Positive Rho(D) Type Positive Antibody Screen Negative Coags 09/02/22 14:05 PT 15.20 H INR 1.16 APTT 30.2 Cardiac Studies: Echocardiogram 07/12/22
--- NOTE | 2022-09-02 16:02 | P.OP_ITS ---
Operative Report Date of procedure: September 02, 2022 Pre-op diagnosis: Right hemiscrotal abscess Post-op diagnosis: Right hemiscrotal abscess Procedure done: Incision and drainage of right hemiscrotal abscess Pathology: Wound cultures Surgeon: Aristeo Estimated blood loss: 25 cc estimated Urine output: Not measured Complications: None Findings: Anesthesia: General Condition: Stable but ill Disposition: PACU Intraoperative findings: * Large right hemiscrotal abscess extending up into the area of the external ring. This appeared to be the area consistent with origination of the abscess and continuation with the subcutaneous wounds seen on CT scan. * No evidence of full-thickness skin necrosis consistent with Danielle's gangrene. Brief History: Mr. Chen is a very pleasant 52-year-old white male quadriplegic who I followed for a long time for neurogenic bladder chronic urinary retention Has had multiple problems with decubiti historically and recently was found to have a large wound in his right posterior thigh and a CT scan done today demonstrated tracking of that wound up into the groin, anterior medial thigh, and what appeared to be communication with the scrotum. There was gas in the scrotum and some gas in the scrotal wall on this very small area. Physical exam revealed a tense upper right hemiscrotum and palpably normal testicles bilaterally. There is no crepitus. There was somewhat delayed capillary refill on the right lateral aspect of the scrotum and diffuse erythema and thickening of the skin. Because of the involvement of the scrotum as well as the thigh tissues and need for further debridement and opening it was recommended that he undergo emergent surgical evaluation with I&D of the scrotum and possible extensive debridement if there was evidence of Danielle's gangrene. This was to be performed in conjunction with Dr. Roy in dealing with the leg issues. Please see his note under separate cover. Procedure: After her emergent evaluation examination and obtaining of informed consent he was taken to the operating suite on 09/02/2022 where general anesthesia was administered without difficulty. Prepped and draped in usual sterile fashion in dorsolithotomy position paying careful attention to avoiding pressure points after appropriate timeout was performed, SCDs confirmed to be functioning, preoperative antibiotics administered, beta-carrie protocol confirmed. Examination under anesthesia confirmed the right hemiscrotal phlegmon extending to over the area of the external ring but not involving the actual area of either testicle. The scrotum was incised anteriorly and laterally from the base approximately [facility] down. Large amount of purulent foul-smelling fluid was obtained. The wound was copiously irrigated some light debridement was conducted. The incised wall looked healthy. There was no evidence of full- thickness necrosis of the skin and subcutaneous tissues. A Pulsavac was used for irrigation of the scrotal cavity. The wound was loosely packed with a lap sponge and the patient was then turned over to Dr. Roy for his portion of the procedure. Plans: * Pack wound, begin dressing changes tomorrow coordinate wound care with Dr. Roy * Replace Olivas catheter with completion procedure
[2022-09-02 16:52] LABS: Reflex Lactate Order REFLEX LACTIC ORDERD
--- NOTE | 2022-09-02 16:57 | P.OP_ITS ---
Operative Report Date of procedure: September 02, 2022 Pre-op diagnosis: Right proximal medial and posterior thigh abscess with extension to right gluteus wound Post-op diagnosis: same Procedure done: Incision and drainage and wide debridement of right posterior thigh abscess jet lavage irrigation, and placement of wound VAC dressing Pathology: none sent Surgeon: Rj Roy Anesthesia: General Estimated blood loss (mL): 100 Complications: None Condition: stable Disposition: PACU Brief History: Mr. Chen is a 52-year-old gentleman with incomplete quadriplegia and a long history for pressure ulcers as well as flap coverage involving the sacral and gluteal and trochanteric regions. He has developed a new right ischial ulcer which extends to the ischium and by prior imaging studies appear to represent osteomyelitis. PICC line has been placed and he has been on cefepime and Flagyl per recommendations of our infectious disease department. He developed a sp ontaneous draining abscess from the posterior right thigh with purulent expression from the ischial wound. He is also developed what appears to be abscess formation in the right hemiscrotum region. This was confirmed by CT scan late yesterday. He is admitted today for planned exploration of both wounds and I will ask for the expertise of Dr. Alberts from our urology service in relation to his scrotal involvement. Details of risk of the procedure were Discussed. Appropriate consents have been reviewed and signed. Dr. Villatoro from our hospitalist service has been gracious enough to assist with admission and medical expertise related to his numerous comorbidities, including diabetes mellitus. Procedure: Mr. Chen was taken to the operating room theater placed in the supine position on the OR table and underwent general endotracheal anesthesia. His lower extremities were placed in stirrups and secured. His entire perineal area and thighs were sterilely prepped and draped. Initially, Dr. Alberts performed incision and drainage of right hemiscrotal abscess with appropriate cultures taken. Malodorous and purulent material was expressed. After jet lavage irrigation, this wound was packed wet-to-dry. I then palpated the right ischial ulcer and was able to do determine the tract extending distally and medially. This was widely opened utilizing a #10 scalpel blade extending the entire length of the track with some remaining purulent material expressed. Debridement was then performed utilizing Metzenbaum scissors to remove devitalized tissue. Hyperemic and inflammatory bleeding tissue along the skin edge was controlled with electrocautery. The entire area was then carefully irrigated by jet lavage irrigation. Hemostasis was again confirmed. Wound VAC dressing utilizing black foam and 125 mmHg suction was then placed. Wound measurements are 18 cm in length by 5 cm in width by 5 cm in depth. His chronic mid sacral and right trochanteric wounds were treated with wet-to-dry dressings. Mr. Chen tolerated procedure well and was awakened from general anesthesia. He is in transported to the postoperative care unit. I did residential treatment counselor with family at the completion of the procedure. I greatly appreciate the expertise and skills of Dr. Alberts in the care of Mr. Chen.
[2022-09-02] MEDS: fentaNYL 50 mcg/mL INJ 2mL IVP (17:53)
--- NOTE | 2022-09-02 18:05 | ANE.PACU2 ---
Inpatient post-anesthesia follow up: Airway intact: Yes Vital signs: Temperature 100.1 F Pulse Rate 100 Respiratory Rate 18 Blood Pressure 99/58 Pulse Oximetry 98 Oxygen Delivery Me thod Room Air Oxygen Flow Rate 6 Fraction of Inspir ed Oxygen Hydration adequate: Yes Nausea and vomiting: No Pain level: 2 Mental status: Baseline Additional Comments: Patient appears anxious complains on and off of pain or SOB. Lungs are clear.
[2022-09-02] MEDS: HYDROmorphone 1 mg/mL INJ 1 mL 0.5 MG IVP (18:09)
[2022-09-02] MEDS: ipratropium-albuterol 3 mL Neb INHALATION (18:12)
[2022-09-02] MEDS: lactobacillus 1 Tablet 2 TAB PO (19:59)
[2022-09-02] MEDS: famotidine 20 mg/2 mL INJ IVP (19:59)
[2022-09-02] MEDS: atorvastatin 40 mg Tablet PO (19:59)
[2022-09-02] MEDS: baclofen 10 mg Tablet 20 MG PO (20:00)
[2022-09-02] MEDS: gabapentin 300 mg Capsule 600 MG PO (20:00)
[2022-09-02] MEDS: sodium chlor 0.9% + KCl 20 mEq 20 MEQ/1,000 ML BAG 100 MEQ IV (20:00)
[2022-09-02] MEDS: cefepime 2,000 MG in sodium chloride 0.9% (plus) 50 ML 100 MG IV (20:00)
[2022-09-02 21:17] LABS: Glucose Point of Care 300 mg/dL (70-110)
[2022-09-02] MEDS: insulin lispro 100 unit/1 mL SUBCUT (21:19)
[2022-09-02] MEDS: clindamycin 900 MG/50 ML PREMIX 100 MG IV (22:39)
[2022-09-03] VITALS (8 sets, daily range): BP systolic 98–144; BP diastolic 55–83; PULSE 74–93; RESP 12–18; TEMP 36.5–36.8; O2SAT 92–97; BMI 37.6
[2022-09-03] MEDS: vancomycin 1,500 MG/300 ML PIGGYBACK 200 MG IV (00:24)
[2022-09-03] MEDS: TRAMadol 50 mg Tablet PO (03:07)
[2022-09-03] MEDS: clindamycin 900 MG/50 ML PREMIX 100 MG IV ×3 (05:56→22:02)
[2022-09-03] MEDS: sodium chlor 0.9% + KCl 20 mEq 20 MEQ/1,000 ML BAG 100 MEQ IV (06:01)
--- NOTE | 2022-09-03 06:05 | PM.PN ---
Subjective Subjective: OfPostop day #1 status post I&D gluteal abscess with wound track into distal posterior right thigh and status post I&D of right hemiscrotum by Dr. Alberts. Air mattress has been delivered and is in place. Mr. Chen states that he is sore . Vital signs are stable. Wound VAC has remained sealed overnight. Laboratory data is still pending this morning as there is bit of challenge in blood draw. [employer] Designer is currently at bedside. Vitals/I&O/Wt Last Vital Signs Temp 98.0 F 09/03/22 04:05 Pulse 79 09/03/22 04:05 Resp 14 09/03/22 04:05 BP 128/79 09/03/22 04:05 Pulse Ox 92 09/03/22 04:05 O2 Del Method 09/03/22 04:05 O2 Flow Rate 6 09/02/22 17:31 09/02/22 09/02/22 09/03/22 14:59 22:59 06:59 Intake Total 500 / 500 2350.0 / 2850.0 Output Total 100 / 100 1850 / 1950 Balance 400 / 400 500.0 / 900.0 Weight last 48 hrs Weight 270 lb Weight 270 lb Physical Exam Extremity: NARRATIVE EXTREMITY EXAM: Right gluteal and posterior thigh wound VAC is currently in position with good seal. Wet-to-dry dressing changes to the right hemiscrotum, chronic mid sacral wound and chronic right trochanteric wound. Urinary Catheter Management: Olivas: Cath Placed During This Visit: yes, but has since been removed by the nurse Date Urinary Catheter Removed: 09/02/22 Time Urinary Catheter Discontinued: 15:45 Data : 09/02/22 14:05 09/02/22 14:05 A&P Assessment and plan (1) Pressure ulcer of right buttock, stage 4: Postop day #1 Plan: Recommend daily wet-to-dry dressing changes to the chronic right trochanteric,mid sacral ulcers and right hemiscrotal wound. Wound VAC dressing change to be performed every 3 to 4 days/twice weekly. Recommend the use of black foam and 125 mmHg suction I will attempt to arrange through the trained operating staff to have the next wound VAC dressing change performed on Thursday morning. With appropriate staffing, I believe this can be performed at bedside. Wet-to-dry dressing changes to the right hemiscrotum, chronic right trochanteric and chronic mid sacral ulcer can be performed by the unit nurses daily. This will probably require 3 personnel to allow for adequate exposure of the right trochanteric and mid sacral regions despite that these are relatively small wounds. I did discuss with his family member concerning outpatient care. I believe this may be a challenge for home care with a home health service as I think he will take a minimum of 3 people to perform the wound VAC dressing change twice weekly. Available resources in their area is unclear at this time, though they had previously used [facility] health, which his family member has informed me is no longer available. I did discuss frankly with her consideration for half-way care and she states she will have that conversation with this morning, though it is clearly not their favor choice. However, this may be the only reasonable option for appropriate wound care. We are still pending culture results from surgery of yesterday. Presently, he remains on vancomycin, cefepime, and clindamycin. We will attempt to contact Dr. Shannon from our infectious disease service for an update related to this recent admission and surgery and antibiotic adjustment. I greatly appreciate expertise and skills of Dr. Villatoro, our hospitalist service, and Dr. Alberts. Attestations Medical Necessity Statement*: Status post I&D right gluteal and posterior thigh abscess and I&D of right hemiscrotum Coding Level of Care Code Acute Purler for Johnny Smart Diagnoses Pressure ulcer of right buttock, stage 4 L89.314
[2022-09-03 06:22] LABS: Basophils % 0.3 %; Eosinophils % 0.1 %; Hematocrit 34.5 % (42.0-52.0); Hemoglobin 9.5 g/dL (11.7-16.6); Lymphocytes # 1.1 10^3/uL (0.8-4.8); Lymphocytes % 7.9 %; Mean Corpuscular HGB Conc 27.5 g/dL (30.0-36.0); Mean Corpuscular Hemoglobin 19.5 pg (28.0-34.0); Mean Corpuscular Volume 70.7 fl (80-94); Monocytes % 6.8 %; Neutrophils % 84.2 %; Nucleated Red Blood Cells % 0 %; Platelet Count 567 10^3/cmm (130-400); Red Blood Count 4.88 10^6/uL (4.1-5.3); Red Cell Distribution Width 23.3 % (12.1-15.1); White Blood Count 14.5 10^3/uL (4.0-10.0)
[2022-09-03 06:29] LABS: Glucose Point of Care 260 mg/dL (70-110)
[2022-09-03] MEDS: HYDROcodone-acetaminophen 5-325 mg Tablet 1 TAB PO ×3 (06:35→22:02)
[2022-09-03 06:53] LABS: Alanine Aminotransferase 9 U/L (0-41); Alkaline Phosphatase 70 U/L (40-130); Anion Gap 13.5 (5-19); Aspartate Amino Transferase 10 U/L (0-40); Blood Urea Nitrogen 11 mg/dL (6-20); Calcium 8.6 mg/dL (8.5-10.5); Carbon Dioxide 25 mmol/L (22-29); Chloride 96 mmol/L (98-107); Globulin 3.2 g/dL (1.3-4.6); Glomerular Filtration Rate 313.6 mL/min (90-130); Glucose 243 mg/dL (65-115); Magnesium 1.9 mg/dL (1.7-2.3); Osmolality Calculated 277 mOsm/kg (285-295); Phosphorus 3.6 mg/dL (2.5-4.5); Potassium 4.5 mmol/L (3.5-5.1); Sodium 130 mmol/L (136-145); Total Bilirubin 0.2 mg/dL (0.15-1.2); Total Protein 6.2 g/dL (6.6-8.7)
[2022-09-03] MEDS: cefepime 2,000 mg SDV 2000 MG (08:43)
[2022-09-03] MEDS: famotidine 20 mg/2 mL INJ IVP ×2 (08:44→20:46)
[2022-09-03] MEDS: baclofen 10 mg Tablet 20 MG PO (08:44)
[2022-09-03] MEDS: gabapentin 300 mg Capsule 600 MG PO ×3 (08:45→20:44)
[2022-09-03] MEDS: PARoxetine 20 mg Tablet PO (08:45)
[2022-09-03] MEDS: clopidogrel 75 mg Tablet PO (08:45)
[2022-09-03] MEDS: lactobacillus 1 Tablet 2 TAB PO ×2 (08:46→17:36)
[2022-09-03] MEDS: insulin lispro 100 unit/1 mL SUBCUT ×3 (09:20→17:36)
[2022-09-03] MEDS: cefepime 2,000 MG in sodium chloride 0.9% (plus) 50 ML 100 MG IV (09:21)
[2022-09-03] MEDS: vancomycin 1,500 MG/300 ML PIGGYBACK 150 MG IV ×2 (09:52→16:31)
--- NOTE | 2022-09-03 10:23 | PM.PN ---
Subjective Subjective: Patient was asking for his baclofen which I have appropriately morning I have resumed most of his home medications Patient is stating that he does not want to get diarrhea he is already on probiotics Patient is not complaining active pain No fever since surgery Wound VAC with minimal drainage Olivas cath in place Right arm PICC line Vitals/I&O/Wt Last Vital Signs Temp 97.8 F 09/03/22 08:00 Pulse 74 09/03/22 08:57 Resp 18 09/03/22 08:57 BP 144/83 09/03/22 08:00 Pulse Ox 95 09/03/22 08:57 O2 Del Method 09/03/22 08:57 O2 Flow Rate 6 09/02/22 17:31 09/02/22 09/03/22 09/03/22 22:59 06:59 14:59 Intake Total 500 / 500 2350.0 / 2850.0 100 / 100 Output Total 100 / 100 1850 / 1950 Balance 400 / 400 500.0 / 900.0 100 / 100 Weight last 48 hrs Weight 122.47 kg Weight 122.47 kg Physical Exam Narrative: Patient is laying supine He is complaining of spasms Awake and alert, no sign of seizure Caregiver at the bedside Wound VAC with minimal drainage Olivas catheter in place Right arm PICC line Abdomen distended however soft No audible stridor or wheezing Currently abdomen Patient in supine Right ischial wound packed with dressing Scrotal area dressing slightly soaked with blood no active drainage Urinary Catheter Management: Olivas: Cath Placed During This Visit: yes, but has since been removed by the nurse Reason for Continuing Indwelling Catheter: Acute Urinary Retention or Obstruction Date Urinary Catheter Removed: 09/02/22 Time Urinary Catheter Discontinued: 15:45 Data : 09/03/22 06:05 09/03/22 06:05 Micro: Microbiology 09/03/22 09:56 Blood Culture - Preliminary Blood SPECIMEN COLLECTED A&P Assessment and plan (1) Neurogenic bladder: (2) Chronic indwelling Olivas catheter: (3) Recurrent UTI: (4) Quadriplegia: (5) Wheelchair dependent: (6) Scrotal abscess: Plan Scrotal abscess Status post incision and drainage by Dr. Roy for gluteal abscess and I&D of right hemiscrotum by Dr. Aristeo grimes Postop day 1 Fever subsided Cultures taken report pending Patient on air mattress Wound VAC has remained sealed overnight Denies antibiotics He is already on probiotics Wound care dressing orders as per Dr. Kirill Roy is recommended ID consult as well For broader antibiotic coverage after failure has started vancomycin, cefepime and clindamycin, outpatient patient was getting Flagyl and cefepime, I do agree with Dr. Santos that clindamycin would have anaerobic coverage but it puts him at risk of C. difficile continue probiotics, we might have to change to Flagyl to avoid C. difficile infection in the future Continue insulin, consistent carb diet Full code Spoke with caregiver this morning as well Family still wants to give it a try for home health however considering requirement of 2 to 3 days presents to change his wound VAC and dressing detention facility would be better, will be discussed with the family in the afternoon Attestations Medical Necessity Statement*: Continue medical management Coding Level of Care Code Acute Licensed Bondsman for Chg Fwd Diagnoses Neurogenic bladder N31.9 Chronic indwelling Olivas catheter Z96.0 Recurrent UTI N39.0 Quadriplegia G82.50 Wheelchair dependent Z99.3 Scrotal abscess N49.2
[2022-09-03 12:37] LABS: Glucose Point of Care 268 mg/dL (70-110)
[2022-09-03] MEDS: baclofen 10 mg Tablet 80 MG PO (15:42)
[2022-09-03 17:03] LABS: Glucose Point of Care 270 mg/dL (70-110)
--- NOTE | 2022-09-03 17:56 | P.PN_ITS ---
Subjective Subjective: Urology f/u POD#1 Clinically improved. Feels much better. Scrotal skin healthy with no necrosis. Dressing changed by staff. Vitals/I&O/Wt Last Vital Signs Temp 98.1 F 09/03/22 16:00 Pulse 76 09/03/22 16:00 Resp 17 09/03/22 16:00 BP 134/82 09/03/22 16:00 Pulse Ox 96 09/03/22 16:00 O2 Del Method 09/03/22 16:00 O2 Flow Rate 6 09/02/22 17:31 09/03/22 09/03/22 09/03/22 06:59 14:59 22:59 Intake Total 2350.0 / 2850.0 100 / 100 350 / 450 Output Total 1850 / 1950 Balance 500.0 / 900.0 100 / 100 350 / 450 Weight last 48 hrs Weight 270 lb Weight 270 lb Physical Exam Narrative: Alert oriented. Appears much improved No audible wheezing Tachycardic. Regular rhythm. Abdomen is soft. There is no skin changes or suspicious infectious findings Olivas catheter in place. Normal phallus. Scrotum looks much better. No skin crepitus or necrosis Left feels fairly normal although the skin is somewhat erythematous. Th Neurologic: Quadriplegia. Extremities no pretibial edema. Urinary Catheter Management: Olivas: Cath Placed During This Visit: yes, but has since been removed by the nurse Reason for Continuing Indwelling Catheter: Acute Urinary Retention or Obstruction Date Urinary Catheter Removed: 09/02/22 Time Urinary Catheter Discontinued: 15:45 Data : 09/03/22 06:05 09/03/22 06:05 Micro: Microbiology 09/02/22 15:53 Gram Stain - Final Scrotum 09/02/22 11:40 Blood Culture - Preliminary Blood SPECIMEN COLLECTED 09/03/22 09:56 Blood Culture - Preliminary Blood SPECIMEN COLLECTED A&P Assessment and plan (1) Urinary retention: (2) Scrotal abscess: Attestations Medical Necessity Statement*: see attending Coding Level of Care Code Acute Cylinder Block Hole Reliner for Johnny Smart Diagnoses Urinary retention R33.9 Scrotal abscess N49.2
[2022-09-03 20:36] LABS: Glucose Point of Care 234 mg/dL (70-110)
[2022-09-03] MEDS: atorvastatin 40 mg Tablet PO (20:43)
[2022-09-03] MEDS: baclofen 10 mg Tablet 60 MG PO (20:44)
[2022-09-03] MEDS: buPROPion SR (12 HR) 150 mg Tablet PO (20:44)
[2022-09-03] MEDS: insulin glargine 100 units/1 mL 10 UNIT SUBCUT (20:50)
[2022-09-03 23:50] LABS: Vancomycin Trough 13.5 ug/mL (10-15)
[2022-09-04] VITALS (7 sets, daily range): BP systolic 103–164; BP diastolic 68–82; PULSE 75–91; RESP 12–16; TEMP 36.5–36.8; O2SAT 93–98
[2022-09-04] MEDS: vancomycin 1,500 MG/300 ML PIGGYBACK 200 MG IV (00:06)
[2022-09-04 05:55] LABS: Basophils # 0.1 10^3/uL (0.0-0.1); Eosinophils # 0.3 10^3/uL (0.0-0.8); Eosinophils % 3.6 %; Hematocrit 32.9 % (42.0-52.0); Lymphocytes # 2.4 10^3/uL (0.8-4.8); Lymphocytes % 28.2 %; Mean Corpuscular HGB Conc 27.4 g/dL (30.0-36.0); Mean Corpuscular Hemoglobin 19.4 pg (28.0-34.0); Mean Corpuscular Volume 70.8 fl (80-94); Mean Platelet Volume 9.1 fL (7.4-10.4); Monocytes # 0.7 10^3/uL (0.2-0.9); Monocytes % 8.2 %; Neutrophils # 4.87 10^3/uL (1.8-7.7); Neutrophils % 58.3 %; Nucleated Red Blood Cells % 0 %; Platelet Count 521 10^3/cmm (130-400); Red Blood Count 4.65 10^6/uL (4.1-5.3); Red Cell Distribution Width 23.5 % (12.1-15.1); White Blood Count 8.3 10^3/uL (4.0-10.0)
[2022-09-04] MEDS: clindamycin 900 MG/50 ML PREMIX 100 MG IV ×2 (06:03→16:13)
[2022-09-04] MEDS: HYDROcodone-acetaminophen 5-325 mg Tablet 1 TAB PO ×2 (06:03→16:18)
[2022-09-04 06:09] LABS: Anion Gap 13.8 (5-19); Blood Urea Nitrogen 13 mg/dL (6-20); Calcium 8.4 mg/dL (8.5-10.5); Carbon Dioxide 24 mmol/L (22-29); Chloride 101 mmol/L (98-107); Glomerular Filtration Rate 500.7 mL/min (90-130); Glucose 203 mg/dL (65-115); Osmolality Calculated 286 mOsm/kg (285-295); Potassium 3.8 mmol/L (3.5-5.1); Sodium 135 mmol/L (136-145)
[2022-09-04 06:22] LABS: Glucose Point of Care 230 mg/dL (70-110)
--- NOTE | 2022-09-04 08:44 | P.PN_ITS ---
Subjective Subjective: Mr. Chen continues to do well. Greatly appreciate expertise and medical oversight from our hospitalist colleagues. Vitals/I&O/Wt Last Vital Signs Temp 97.7 F 09/04/22 07:57 Pulse 84 09/04/22 08:00 Resp 16 09/04/22 08:00 BP 103/69 09/04/22 07:57 Pulse Ox 94 09/04/22 08:00 O2 Del Method 09/04/22 08:00 O2 Flow Rate 6 09/02/22 17:31 09/03/22 09/04/22 09/04/22 22:59 06:59 14:59 Intake Total 2900 / 3000 350 / 3350 Output Total 1400 / 1400 1600 / 3000 Balance 1500 / 1600 -1250 / 350 Weight last 48 hrs Weight 270 lb Weight 270 lb Physical Exam Extremity: NARRATIVE EXTREMITY EXAM: Wound VAC dressings and wet-to-dry dressings are in place. Urinary Catheter Management: Olivas: Cath Placed During This Visit: yes, but has since been removed by the nurse Reason for Continuing Indwelling Catheter: Acute Urinary Retention or Obstruction Date Urinary Catheter Removed: 09/02/22 Time Urinary Catheter Discontinued: 15:45 Data : 09/04/22 05:21 09/04/22 05:21 Micro: Microbiology 09/02/22 15:53 Gram Stain - Final Scrotum 09/02/22 11:40 Blood Culture - Preliminary Blood SPECIMEN COLLECTED 09/03/22 09:56 Blood Culture - Preliminary Blood SPECIMEN COLLECTED A&P Assessment and plan (1) Status post incision and drainage: We will plan for wound VAC dressing change with assistance of our surgical personnel tomorrow, at bedside. Patient has refused inpatient longterm care. There are no available home health resources available for in house care for his wounds. Plan: We will tentatively plan for twice weekly wound care clinic visits for wound VAC dressing changes. We are also attempting to make arrangements for appropriate bed air mattress at home. Would recommend tentative plans for disc harge to home tomorrow. Attestations Medical Necessity Statement*: Status post incision and drainage of right hemiscrotal abscess and right thigh abscess. 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
[2022-09-04] MEDS: baclofen 10 mg Tablet 40 MG PO (08:54)
[2022-09-04] MEDS: cefepime 2,000 MG in sodium chloride 0.9% (plus) 50 ML 100 MG IV ×2 (08:55→21:44)
[2022-09-04] MEDS: insulin lispro 100 unit/1 mL SUBCUT ×3 (08:56→17:27)
[2022-09-04] MEDS: gabapentin 300 mg Capsule 600 MG PO ×3 (08:57→21:42)
[2022-09-04] MEDS: pantoprazole DR 40 mg Tablet PO (08:57)
[2022-09-04] MEDS: clopidogrel 75 mg Tablet PO (08:57)
[2022-09-04] MEDS: lactobacillus 1 Tablet 2 TAB PO ×2 (08:58→16:54)
[2022-09-04] MEDS: PARoxetine 20 mg Tablet PO (08:58)
[2022-09-04] MEDS: famotidine 20 mg/2 mL INJ IVP ×2 (09:36→21:43)
[2022-09-04] MEDS: buPROPion SR (12 HR) 150 mg Tablet PO ×2 (09:36→21:46)
[2022-09-04] MEDS: iron complex forte Capsule 1 EACH PO (09:36)
[2022-09-04] MEDS: vancomycin 1,500 MG/300 ML PIGGYBACK 150 MG IV ×2 (09:36→16:49)
--- NOTE | 2022-09-04 09:47 | PM.PN ---
Subjective Subjective: Leukocytosis improved Culture negative He might be able to discharge him tomorrow Patient absolutely does not want to go to any SNF He wants to go home with home health services He was on cefepime and Flagyl before he got admitted, Considering drainage of abscess he will need anti-MRSA coverage Vitals/I&O/Wt Last Vital Signs Temp 97.7 F 09/04/22 07:57 Pulse 84 09/04/22 08:00 Resp 16 09/04/22 08:00 BP 103/69 09/04/22 07:57 Pulse Ox 94 09/04/22 08:00 O2 Del Method 09/04/22 08:00 O2 Flow Rate 6 09/02/22 17:31 09/03/22 09/04/22 09/04/22 22:59 06:59 14:59 Intake Total 2900 / 3000 350 / 3350 240 / 240 Output Total 1400 / 1400 1600 / 3000 Balance 1500 / 1600 -1250 / 350 240 / 240 Weight last 48 hrs Weight 122.47 kg Weight 122.47 kg Physical Exam Narrative: Patient lying supine Abdomen soft In good spirits Erythema of scrotal area improving Wound VAC drainage on atenolol Olivas cath draining dilute urine He is on room air Does not seem to be in any distress Urinary Catheter Management: Olivas: Cath Placed During This Visit: yes, but has since been removed by the nurse Reason for Continuing Indwelling Catheter: Acute Urinary Retention or Obstruction Date Urinary Catheter Removed: 09/02/22 Time Urinary Catheter Discontinued: 15:45 Data : 09/04/22 05:21 09/04/22 05:21 Micro: Microbiology 09/02/22 15:53 Gram Stain - Final Scrotum 09/02/22 11:40 Blood Culture - Preliminary Blood SPECIMEN COLLECTED 09/03/22 09:56 Blood Culture - Preliminary Blood SPECIMEN COLLECTED A&P Assessment and plan (1) Neurogenic bladder: (2) Chronic indwelling Olivas catheter: (3) Recurrent UTI: (4) Pressure ulcer of coccygeal region: (5) Scrotal abscess: (6) Status post incision and drainage: Plan Status post drainage of scrotal abscess &Gluteal abscess Continue vancomycin, cefepime and clindamycin Leukocytosis improved Afebrile since surgery Resume DVT prophylaxis with Lovenox No postop complications He will need anti-MRSA coverage at the time of discharge Will discuss with Dr. 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
[2022-09-04 10:49] LABS: Glucose Point of Care 275 mg/dL (70-110)
[2022-09-04] MEDS: enoxaparin 40 mg/0.4 mL Syringe SUBCUT (11:23)
[2022-09-04] MEDS: baclofen 10 mg Tablet 80 MG PO (16:17)
[2022-09-04 16:59] LABS: Glucose Point of Care 241 mg/dL (70-110)
--- NOTE | 2022-09-04 18:37 | P.CONIM_ITS ---
Providers/Reason For Consult Consulting Physician/Specialty*: Rachael Shannon MD/ Infectious Disease Reason for Consult*: scortal cellulitis, osteomyelitis Requesting Physician: Herbie Roy MD Attending Physician: Corine Rubalcava MD Primary Care Provider: JC Fonesca History of Present Illness History of Present Illness David Chen is a 52 year old male with quadriplegia for over 20 years after a fall and nearly completely insensate below the mid chest level.? He has been followed in wound care services for dependent pressure wounds, most recently for right ischial wound and right trochanteric wound. 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 Deep tissue culture and bone culture showed presence of E. coli. Patient was discharged from the hospital on cefepime and metronidazole which she has been taking via home infusion as prescribed. He is being followed currently by infectious disease as outpatient. He returned to the hospital on September 02, 2022 with increasing scrotal swell ing and erythema and increased purulence from his wound. On examination by Dr. Roy, he was able to pass digitally through his gluteal wound into the posterior aspect of his right thigh. An abscess cavity was encountered which was opened. 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 He was admitted due to this latter concern and was evaluated by urology service. Upon bedside inspection changes were more likely to be fulfillment representative of continued extension of changes from the gluteal and right thigh process into the perineal region rather than true Williams's gangrene. On September 02 he was taken to the operating room where he underwent I&D of right hemiscrotal abscess. Gram stain is currently polymicrobial. Cultures are awaited. He now has a wound VAC. There was no evidence of full-thickness skin necrosis to indicate foreign years gangrene. Patient had a leukocytosis upon admission which is now resolving. He has been on antibiotic treatment with IV cefepime, clindamycin IV and IV vancomycin during course of his admission. He has had trouble getting home health established at his residence in [facility]. His has been taking care of wound dressing changes and his IV antibiotic infusions at home. He comes into the infectious disease office once a week to get lab work and PICC line care. He also follows with wound care clinic once a week for wound assessments. Review of Systems General: Reports: 10 or more systems reviewed and unremarkable except in HPI and below Const: Denies: fever(s), chills or body aches Eyes: Denies: change in vision, blurry vision or photophobia ENMT: Reports: hoarseness; Denies: throat pain, enlarged tonsils, odynophagia or nasal congestion Card: Denies: chest pain, palpitations, irregular heart rhythm, edema, swelling of feet/ankles, lightheadedness, pre-syncope, dyspnea on exertion or orthopnea Resp: Denies: dyspnea, productive cough, non-productive cough, wheezing, stridor, pain on inspiration, change in phlegm color, hemoptysis or chest congestion GI: Denies: abdominal pain, nausea, vomiting, hematemesis, coffee ground emesis, dysphagia, heartburn, diarrhea, constipation, GI cramping, change in stool character, hematochezia or melena : Denies: flank pain, dysuria, urinary frequency, urinary urgency, urinary hesitancy or hematuria Musc: Denies: neck pain, back pain, extremity pain, joint swelling, joint warmth or deformity Neuro: Denies: headache(s), numbness in extremities, weakness in extremities, sensory changes, difficulty walking, frequent falls, dizziness, vertigo, behavioral changes, Slurred speech present or seizure-like activity Psych: Denies: anxiety, depression, suicidal ideation or homicidal ideation Endo: Denies: polyuria, polydipsia, tired all the time, cold intolerance or hot flashes Sarwat/Lymph: Denies: easy bruising or easy bleeding Medications/Allergies Home Medications Medication Instructions Recorded Confirmed Last Taken Type albuterol sulfate 90 mcg/actuation 2 puff inhalation Q6H PRN 11/17/19 09/03/22 Unknown History aerosol inhaler Shortness Of Breath amitriptyline 10 mg tablet 10 mg PO BID 11/17/19 09/03/22 Unknown History ascorbate calcium (vitamin C) 500 500 mg PO BID 11/17/19 09/03/22 Unknown History mg tablet aspirin 81 mg tablet,delayed 81 mg PO QAM 11/17/19 09/03/22 Unknown History release (Adult Aspirin Regimen) atorvastatin 40 mg tablet 40 mg PO BEDTIME 11/17/19 09/03/22 Unknown History baclofen 20 mg tablet See Rx Instructions .Route .COMPLEX 11/17/19 09/03/22 Unknown History clopidogrel 75 mg tablet 75 mg PO QAM 11/17/19 09/03/22 Unknown History fluticasone propionate 50 2 spray intranasal DAILY PRN 11/17/19 09/03/22 Unknown History mcg/actuation nasal Allergy Symptoms spray,suspension (Flonase Allergy Relief) gabapentin 300 mg capsule 600 mg PO TID 11/17/19 09/03/22 Unknown History methenamine hippurate 1 gram tablet 1 gm PO BID 11/17/19 09/03/22 Unknown Hi story paroxetine HCl 20 mg tablet 20 mg PO DAILY 11/17/19 09/03/22 Unknown History Lactobacillus acidophilus and 1 cap PO BID 07/13/22 09/03/22 Unknown History rhamnosus 15 billion cell capsule (Probiotic) cholecalciferol (vitamin D3) 25 25 mcg PO BEDTIME 07/13/22 09/03/22 Unknown History mcg (1,000 unit) capsule (Vitamin D3) multivitamin 1 tab PO DAILY 07/13/22 09/03/22 Unknown History vitamin A 2,400 mcg capsule 2,400 mcg PO BEDTIME 07/13/22 09/03/22 Unknown H istory Blood Builder 1 tab PO DAILY@16 08/14/22 09/03/22 Unknown History bupropion HCl 150 mg tablet,12 hr 150 mg PO BID 08/14/22 09/03/22 Unknown History sustained-release coenzyme Q10 100 mg capsule 100 mg PO BEDTIME 08/14/22 09/03/22 Unknown History (CoQ-10) d-mannose 500 mg capsule 500 mg PO BID 08/14/22 09/03/22 Unknown History esomeprazole magnesium 20 mg 20 mg PO DAILY 08/14/22 09/03/22 Unknown History capsule,delayed release (Nexium) ferrous gluconate 324 mg (38 mg 324 mg PO DAILY@16 08/14/22 09/03/22 Unknown History iron) tablet metformin 1,000 mg tablet 1,000 mg PO BID 08/14/22 09/03/22 Unknown History hydrocodone 5 mg-acetaminophen 325 1 tab PO Q8H PRN MODERATE PAIN 08/15/22 09/03/22 Unknown Rx mg tablet #30 tabs metronidazole 500 mg tablet 500 mg PO Q8H #90 tabs 08/15/22 09/03/22 Unknown Rx cefepime 2 gram solution for 2 g IV Q12H 08/22/22 09/03/22 Unknown History injection nystatin 500,000 unit tablet 500,000 unit PO TID 5 days #15 tabs 08/22/22 09/03/22 Unknown Rx hydrocodone 5 mg-acetaminophen 325 1 tab PO Q8H PRN pain 8 days #24 09/01/22 09/03/22 Unknown Rx mg tablet tabs zinc acetate 50 mg (zinc) capsule 50 mg PO BEDTIME 09/03/22 09/03/22 Unknown History Allergies Allergy/AdvReac Type Severity Reaction Status Date / Time Penicillins Allergy THROAT Verified 09/03/22 08:43 SWELLS SHUT Sulfa (Sulfonamide Allergy HIVES Verified 09/03/22 08:43 Antibiotics) Current Medications Generic Name Dose Route Start Last Admin Trade Name Freq PRN Reason Stop Dose Admin Hydrocodone Bitart/Acetaminophen 1 tab 09/03/22 10:23 09/04/22 16:18 Hydrocodone-Acetaminophen 5-325 Mg Tablet PO 1 tab Q8H PRN Administration MODERATE pain Atorvastatin Calcium 40 mg 09/02/22 21:00 09/03/22 20:43 Atorvastatin 40 Mg Tablet PO 40 mg BEDTIME OPAL Administration Baclofen 40 mg 09/04/22 08:00 09/04/22 08:54 Baclofen 10 Mg Tablet PO 40 mg 0800 OPAL Administration Baclofen 80 mg 09/03/22 16:00 09/04/22 16:17 Baclofen 10 Mg Tablet PO 80 mg 1600 OPAL Administration Baclofen 60 mg 09/03/22 21:00 09/03/22 20:44 Baclofen 10 Mg Tablet PO 60 mg 2100 OPAL Administration Bupropion HCl 150 mg 09/03/22 21:00 09/04/22 09:36 Bupropion Sr (12 Hr) 150 Mg Tablet PO 150 mg BID@0900,2100 OPAL Administration Clopidogrel Bisulfate 75 mg 09/03/22 09:00 09/04/22 08:57 Clopidogrel 75 Mg Tablet PO 75 mg DAILY OPAL Administration Enoxaparin Sodium 40 mg 09/04/22 10:00 09/04/22 11:23 Enoxaparin 40 Mg/0.4 Ml Syringe SUBCUT 40 mg Q24H OPAL Administration Famotidine 20 mg 09/02/22 20:00 09/04/22 09:36 Famotidine 20 Mg/2 Ml Inj IVP 20 mg Q12H OPAL Administration Folic Acid/Iron/Vitamin B12 1 each 09/04/22 09:00 09/04/22 09:36 Iron Complex Forte Capsule PO 1 each DAILY OPAL Administration Gabapentin 600 mg 09/02/22 21:00 09/04/22 16:14 Gabapentin 300 Mg Capsule PO 600 mg TID OPAL Administration Cefepime HCl 2,000 mg/ Sodium 50 mls @ 100 mls/hr 09/02/22 20:00 09/04/22 10:35 Chloride IV Infused Q12H OPAL Infusion Protocol Insulin Glargine 10 unit 09/03/22 21:00 09/03/22 20:50 Insulin Glargine 100 Units/1 Ml SUBCUT 10 unit BEDTIME OPAL Administration Insulin Human Lispro 0 unit 09/03/22 12:00 09/04/22 17:27 Insulin Lispro 100 Unit/1 Ml SUBCUT 8 unit TIDWM OPAL Administration Protocol Lactobacillus Acidophilus 2 tab 09/02/22 19:22 09/04/22 16:54 Lactobacillus 1 Tablet PO 2 tab BID OPAL Administration Pantoprazole Sodium 40 mg 09/04/22 09:00 09/04/22 08:[address] 40 Mg Tablet PO 40 mg DAILY OPAL Administration Paroxetine HCl 20 mg 09/03/22 09:00 09/04/22 08:58 Paroxetine 20 Mg Tablet PO 20 mg DAILY OPAL Administration Tramadol HCl 50 mg 09/02/22 19:22 09/03/22 03:07 Tramadol 50 Mg Tablet PO 50 mg Q6H PRN Administration MODERATE PAIN PFSH Acute PFSH: Medical History ASHD (arteriosclerotic heart disease) Chronic incomplete quadriplegia Chronic indwelling Olivas catheter Diabetes no insulin History of bladder stone CYSTOLITHOLAPAXY History of cardiac arrest 2017 post heart attack, prolonged ventilation, trach, peg. History of difficult intubation Went through tongue during emergency procedure Hyperlipidemia Hypertension Iron deficiency Neurogenic bladder secondary to spinal cord injury 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-6) Recurrent UTI Retention of urine due to occlusion of Olivas catheter Sleep apnea Surgical History History of cervical spinal surgery History of lumbar surgery History of percutaneous coronary intervention RCA History of percutaneous endoscopic gastrostomy History of tracheostomy subsequently removed, for prolonged ventilation Status post excisional debridement buttocks Status post incision and drainage (09/02/22) With wide debridement of right posterior thigh abscess, jet lavage irrigation and placement of wound VAC by Dr. Roy along with I&D of right hemiscrotal abscess by Dr. Alberts Family History Mother Hypertension Father Arthritis Denies family history of Anesthesia complication Bleeding disorder Social History Smoking and tobacco status: former smoker Alcohol intake: never Caregiver/support person: Yes Lives independently: No Household members: significant other Marital status: Current occupational status: disabled Vitals/I&O/Wt Last Vital Signs Temp 97.7 F 09/04/22 07:57 Pulse 86 09/04/22 15:25 Resp 16 09/04/22 15:25 BP 106/71 09/04/22 15:25 Pulse Ox 94 09/04/22 15:25 O2 Del Method 09/04/22 15:25 O2 Flow Rate 6 09/02/22 17:31 09/04/22 09/04/22 09/04/22 06:59 14:59 22:59 Intake Total 350 / 3350 590 / 590 50 / 640 Output Total 1600 / 3000 1100 / 1100 Balance -1250 / 350 590 / 590 -1050 / -460 Weight last 48 hrs Weight 122.47 kg Physical Exam Narrative: General: No acute distress, AO x3 HEENT: PERRLA, pupils bilaterally equal and reactive, pallors not present Chest: Normal vesicular breath sounds, no added sounds, equal good air entry bilaterally CVS: S1-S2 regular, no murmurs, no tachycardia, no gallops, no rubs Abdomen: Soft, nontender, no organomegaly, bowel sounds present Neuro: Paraplegia Extremities: Wound vac in place over right groin fold extending onto rigth buttock anteriorly. Surgicall dressing not opened by me for exam. Urinary Catheter Management: Olivas: Cath Placed During This Visit: yes, but has since been removed by the nurse Reason for Continuing Indwelling Catheter: Chronic Indwelling Urinary Catheter on Admission Date Urinary Catheter Removed: 09/02/22 Time Urinary Catheter Discontinued: 15:45 Data : 09/08/22 04:38 09/08/22 04:38 Other Labs: 09/01 : CT femur : COMPARISON: 08/11/2022 Marked narrowing of the RIGHT hip joint. Dystrophic ossification within the soft tissues surrounding the RIGHT hip. No fracture. Mild narrowing of the hip joint. Soft tissue ulceration tract containing air extends from the lateral RIGHT hip to abut the cortical surface of the greater trochanter. No cortical destruction. There is also a soft tissue track extending to the ischial tuberosity. There is loss of the normal cortex. Both lytic and sclerotic changes. The abscess seen abutting the RIGHT ischial tuberosity and the prior study has resolved. The track is now widely patent. Extensive foci of air have progressed throughout the soft tissues of the pelvis. Numerous air foci are contiguous with the large RIGHT gluteal tract and extends through the RIGHT perineum into the soft tissues over the anterior pelvis and through the scrotum. Small amount of air crosses the midline to the LEFT scrotal sac and perineum. Increasing air along the medial upper RIGHT thigh. Olivas catheter present in a nondistended urinary bladder. Numerous small lymph nodes in the RIGHT groin. CT/CT femur RT w con [id number] IMPRESSION: ? 1.? New extensive air throughout the soft tissues of the pelvis involving the perineum, scrotum and medial RIGHT thigh. Findings consistent with Williams gangrene. 2.? Soft tissue decubitus ulcers involving the RIGHT gluteal region extends to the ischial tuberosity and over the RIGHT lateral greater trochanter. 3.? Abscess and osteomyelitis involving the RIGHT ischial tuberosity seen on 08/11/2022 has moderately improved. No progression of osteomyelitis 08/11 .CT abdomen/pelvis : CT/CT abdomen pelvis w con* [id number] IMPRESSION: ? 1.? RIGHT dorsal buttock decubitus ulcer with peripherally enhancing fluid collection consistent with abscess extending to the RIGHT ischium dorsally. Suspected osteomyelitis involving the RIGHT ischial dorsally appears new from previous. Fluid collection measures 7.1 x 4.8 x 6.6 cm. 2.? Chronic ulceration overlying the RIGHT lateral hip is unchanged. No inflammatory changes or fluid collection in this area. Myositis ossificans both hips. 3.? Diffuse fatty infiltration liver. 4.? IVC filter. 5.? No other significant changes compared to previous. 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 From August 11, 2022, there was noted evidence of RIGHT dorsal buttock decubitus ulcer with peripherally enhancing fluid collection consistent with abscess extending to the RIGHT ischium dorsally on CT of his pelvis. On follow-up CT from September 01, 2022, this abscess has now resolved likely a combination of outpatient debridements at the wound care clinic and IV antibiotics. Changes of osteomyelitis also appearing to be stable to improved. Deep tissue cultures and wound curetting cultures from that time had shown gram- negative rods on gram stain, eventually resulted as E. coli and Klebsiella oxytoca once patient had left the hospital. He had been on treatment with cefepime and metronidazole based on the above culture results. 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 However further evaluation by urology did not show evidence of full-thickness necrosis. Findings were more consistent with a hemiscrotal abscess and cellulitis. Multiple open pressure wounds in the area remain a risk factor for recurrent skin and soft tissue admissions with extension into deeper tissues. It is likely that current extension into the scrotum may be as a result of the ongoing infection in the area, precipitated by continuously open wounds. We will follow culture results to ensure that no change in susceptibility has occurred as far as his gram-negative rods are concerned. Additionally there might be additional gram-positive cocci such as MRSA or Enterococcus which may be the culprits, not adequately covered by cefepime at this time. Plan: continue Cefepime 2g iv q12h has no evidence of resistant gram-negative's at this point in time. Appropriate to add vancomycin for broader coverage of MRSA and Enterococcus at this time. However it is my understanding that patient will continue to have difficulty obtaining home health after discharge and continuing vancomycin is not likely to be feasible or safe in this situation. Without home health being involved, patient will not be able to get appropriate vancomycin trough monitoring, therefore will recommend to d/c vancomycin, change to daptomycin 8mg/kg q24h for safer home infusion. Will obtain baseline CPK and then add weekly CPK monitoring to CBC, creatinine and LFTs already being obtained. 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
[2022-09-04 21:37] LABS: Glucose Point of Care 262 mg/dL (70-110)
[2022-09-04] MEDS: atorvastatin 40 mg Tablet PO (21:42)
[2022-09-04] MEDS: baclofen 10 mg Tablet 60 MG PO (21:42)
[2022-09-04] MEDS: insulin glargine 100 units/1 mL 10 UNIT SUBCUT (21:44)
[2022-09-05] VITALS (8 sets, daily range): BP systolic 108–146; BP diastolic 71–89; PULSE 70–95; RESP 13–19; TEMP 36.3–36.7; O2SAT 92–97
[2022-09-05 03:10] LABS: Basophils # 0.1 10^3/uL (0.0-0.1); Basophils % 0.8 %; Eosinophils # 0.3 10^3/uL (0.0-0.8); Eosinophils % 3.5 %; Hematocrit 32.9 % (42.0-52.0); Hemoglobin 8.8 g/dL (11.7-16.6); Lymphocytes # 2.3 10^3/uL (0.8-4.8); Lymphocytes % 30.6 %; Mean Corpuscular HGB Conc 26.7 g/dL (30.0-36.0); Mean Corpuscular Volume 71.1 fl (80-94); Mean Platelet Volume 9.2 fL (7.4-10.4); Monocytes # 0.7 10^3/uL (0.2-0.9); Monocytes % 9.7 %; Neutrophils # 4.05 10^3/uL (1.8-7.7); Neutrophils % 54.6 %; Nucleated Red Blood Cells % 0 %; Platelet Count 553 10^3/cmm (130-400); Red Blood Count 4.63 10^6/uL (4.1-5.3); Red Cell Distribution Width 23.8 % (12.1-15.1); White Blood Count 7.4 10^3/uL (4.0-10.0)
[2022-09-05 03:20] LABS: Blood Urea Nitrogen 16 mg/dL (6-20); Calcium 8.5 mg/dL (8.5-10.5); Carbon Dioxide 25 mmol/L (22-29); Chloride 101 mmol/L (98-107); Creatine Phosphokinase 27 U/L (39-308); Glomerular Filtration Rate 313.6 mL/min (90-130); Glucose 271 mg/dL (65-115); Osmolality Calculated 293 mOsm/kg (285-295); Sodium 136 mmol/L (136-145)
[2022-09-05] MEDS: HYDROcodone-acetaminophen 5-325 mg Tablet 1 TAB PO ×3 (04:23→17:33)
--- NOTE | 2022-09-05 05:55 | P.PN_ITS ---
Subjective Subjective: Postop day #3 status post incision and drainage and 1 debridement of a right gluteal pressure ulcer with subsequent abscess formation in the posterior right thigh. Status post I&D of a right hemiscrotal abscess by Dr. Alberts. Greatly appreciate the expertise and medical oversight of her [facility] colleagues. Appreciate Dr. Shannon's expertise. Vitals/I&O/Wt Last Vital Signs Temp 97.4 F L 09/05/22 04:00 Pulse 79 09/05/22 04:00 Resp 19 H 09/05/22 04:00 BP 146/89 09/05/22 04:00 Pulse Ox 92 09/05/22 04:00 O2 Del Method 09/05/22 03:44 O2 Flow Rate 6 09/02/22 17:31 09/04/22 09/04/22 09/05/22 14:59 22:59 06:59 Intake Total 590 / 590 400 / 990 240 / 1230 Output Total 1100 / 1100 1400 / 2500 Balance 590 / 590 -700 / -110 -1160 / -1270 Weight last 48 hrs Weight 280 lb Physical Exam Extremity: NARRATIVE EXTREMITY EXAM: All dressings are currently in place with wet-to-dry dressings being performed daily to the right hemiscrotum chronic right trochanteric and mid sacral ulcers. Wound VAC dressing is been in place since surgery. Urinary Catheter Management: Olivas: Cath Placed During This Visit: yes, but has since been removed by the nurse Reason for Continuing Indwelling Catheter: Not indwelling catheter Date Urinary Catheter Removed: 09/02/22 Time Urinary Catheter Discontinued: 15:45 Data : 09/05/22 02:27 09/05/22 02:27 Micro: Microbiology 09/02/22 15:53 Gram Stain - Final Scrotum Anaerobic Culture - Preliminary Abscess Culture - Preliminary 09/02/22 11:40 Blood Culture - Preliminary Blood NEGATIVE TO DATE 09/03/22 09:56 Blood Culture - Preliminary Blood NEGATIVE TO DATE A&P Assessment and plan (1) Status post incision and drainage: Postop day #3 status post debridement Plan: We will plan for wound VAC dressing change today with the assistance and expertise of our surgical team. Dr. Shannon is recommended Mr. Chen remained hospitalized until we have obtain more definitive results from his culture to [facility] for appropriate antibiotic adjustment. Arrangements have been made for twice weekly dressing changes through the [facility] wound care clinic as Mr. Chen is not agreeable to skilled inpatient nursing care and home health services are currently unavailable. I will be in [place] today at the [facility] wound care clinic. I may be reached by phone as needed. Again, greatly appreciate all the efforts and expertise of our colleagues and surgical services. Attestations Medical Necessity Statement*: Status post I&D of right thigh and hemiscrotal abscesses and debridement of pressure ulcers. Coding Level of Care Code Acute Personnel Supervisor for Cristyg Fwd Diagnoses Status post incision and drainage Z98.890
[2022-09-05 06:26] LABS: Glucose Point of Care 288 mg/dL (70-110)
[2022-09-05] MEDS: iron complex forte Capsule 1 EACH PO (08:26)
[2022-09-05] MEDS: metroNIDAZOLE 500 MG Tablet PO ×2 (08:26→17:32)
[2022-09-05] MEDS: baclofen 10 mg Tablet 40 MG PO (08:26)
[2022-09-05] MEDS: PARoxetine 20 mg Tablet PO (08:26)
[2022-09-05] MEDS: gabapentin 300 mg Capsule 600 MG PO ×3 (08:27→21:19)
[2022-09-05] MEDS: lactobacillus 1 Tablet 2 TAB PO ×2 (08:28→17:32)
[2022-09-05] MEDS: buPROPion SR (12 HR) 150 mg Tablet PO ×2 (08:28→21:19)
[2022-09-05] MEDS: pantoprazole DR 40 mg Tablet PO (08:28)
[2022-09-05] MEDS: cefepime 2,000 MG in sodium chloride 0.9% (plus) 50 ML 100 MG IV ×2 (08:28→19:34)
[2022-09-05] MEDS: famotidine 20 mg/2 mL INJ IVP ×2 (08:28→19:34)
[2022-09-05] MEDS: insulin lispro 100 unit/1 mL SUBCUT ×3 (08:29→17:31)
--- NOTE | 2022-09-05 08:56 | P.PN_ITS ---
Subjective Subjective: ID note reviewed Spoke with Dr. Shultz as well yesterday Dr. Roy is planning for wound VAC dressing change today Patient is afebrile Prelim report of cultures reviewed, Patient is agreeable to stay until we see final culture and sensitivity report Afebrile leukocytosis improved Sepsis resolved Vitals/I&O/Wt Last Vital Signs Temp 97.9 F 09/05/22 08:00 Pulse 70 09/05/22 08:05 Resp 18 09/05/22 08:05 BP 131/86 09/05/22 08:00 Pulse Ox 94 09/05/22 08:05 O2 Del Method 09/05/22 08:05 O2 Flow Rate 6 09/02/22 17:31 09/04/22 09/05/22 09/05/22 22:59 06:59 14:59 Intake Total 400 / 990 240 / 1230 Output Total 1100 / 1100 1400 / 2500 Balance -700 / -110 -1160 / -1270 Weight last 48 hrs Weight 127.006 kg Physical Exam Narrative: Patient is laying supine Complaining of soreness around scrotal area Mild serosanguineous soaked dressing around scrotal area 200 mL drainage from wound VAC, content is mostly epithelial tissue with blood Abdomen soft, currently on room air Pleasant and cooperative Currently on room air doing well No acute distress Urinary Catheter Management: Olivas: Cath Placed During This Visit: yes, but has since been removed by the nurse Reason for Continuing Indwelling Catheter: Not indwelling catheter Date Urinary Catheter Removed: 09/02/22 Time Urinary Catheter Discontinued: 15:45 Data : 09/05/22 02:27 09/05/22 02:27 Micro: Microbiology 09/02/22 15:53 Gram Stain - Final Scrotum Anaerobic Culture - Preliminary Abscess Culture - Preliminary 09/02/22 11:40 Blood Culture - Preliminary Blood NEGATIVE TO DATE 09/03/22 09:56 Blood Culture - Preliminary Blood NEGATIVE TO DATE A&P Assessment and plan (1) Neurogenic bladder: (2) Chronic indwelling Olivas catheter: (3) Recurrent UTI: (4) Quadriplegia: (5) Urinary retention: (6) ASHD (arteriosclerotic heart disease): (7) Hypertension: Qualifiers: Hypertension type: primary hypertension Qualified Code(s): I10 - Essential (primary) hypertension (8) Anemia: (9) Diabetes: Qualifiers: Diabetes mellitus complication detail: with other skin ulcer Diabetes mellitus complication status: with skin complications Diabetes mellitus residential insulin use: without residential use Diabetes mellitus type: type 2 Qualified Code(s): E11.622 - Type 2 diabetes mellitus with other skin ulcer (10) Iron deficiency: (11) Scrotal abscess: (12) Pressure ulcer of right buttock, stage 4: (13) Status post incision and drainage: Plan For now we are using daptomycin cefepime and Flagyl Will wait until we see final culture sensitivity results I will add Lantus with sliding scale Check A1c level Patient is getting constipated from opioids We will give him senna S on daily basis Wound care as per Dr. Roy's recommendations Appreciate ID antibiotic recommendations Patient is plan to go home DVT prophylaxis with Lovenox Attestations Medical Necessity Statement*: Continue medical management Time Spent in Patient Care: 30 Coding Level of Care Code Acute Paper Finisher for g Fwd Diagnoses Neurogenic bladder N31.9 Chronic indwelling Olivas catheter Z96.0 Recurrent UTI N39.0 Quadriplegia G82.50 Urinary retention R33.9 ASHD (arteriosclerotic heart disease) I25.10 Hypertension I10 Hypertension type: primary hypertension Anemia D64.9 Diabetes E11.622 Diabetes mellitus complication detail: with other skin ulcer Diabetes mellitus complication status: with skin complications Diabetes mellitus residential insulin use: without residential use Diabetes mellitus type: type 2 Iron deficiency E61.1 Scrotal abscess N49.2 Pressure ulcer of right buttock, stage 4 L89.314 Status post incision and drainage Z98.890
[2022-09-05 09:40] LABS: Estmated Average Glucose 148; Hemoglobin A1C 6.8 % (4.0-6.0)
[2022-09-05] MEDS: clopidogrel 75 mg Tablet PO (09:41)
[2022-09-05] MEDS: sennosides-docusate Tablet 1 TAB PO (10:03)
[2022-09-05] MEDS: enoxaparin 40 mg/0.4 mL Syringe SUBCUT (10:03)
--- NOTE | 2022-09-05 10:31 | PC.SOCIAL ---
Pg 2 IMM Explained to pt Pg 2 IMM. No questions voiced. Provided pt a copy. Initialed, dated, & timed a copy & placed in chart.
[2022-09-05 10:59] LABS: Glucose Point of Care 316 mg/dL (70-110)
[2022-09-05] MEDS: baclofen 10 mg Tablet 80 MG PO (15:28)
[2022-09-05 16:50] LABS: Glucose Point of Care 268 mg/dL (70-110)
[2022-09-05] MEDS: baclofen 10 mg Tablet 60 MG PO (21:18)
[2022-09-05 21:19] LABS: Glucose Point of Care 273 mg/dL (70-110)
[2022-09-05] MEDS: atorvastatin 40 mg Tablet PO (21:19)
[2022-09-05] MEDS: insulin glargine 100 units/1 mL 15 UNIT SUBCUT (21:36)
[2022-09-05] MEDS: TRAMadol 50 mg Tablet PO (23:52)
[2022-09-06] MEDS: HYDROcodone-acetaminophen 5-325 mg Tablet 1 TAB PO (02:11)
[2022-09-06 04:00] VITALS: BP 124/79; PULSE 93; RESP 18; TEMP 36.8; O2SAT 97
[2022-09-06 05:07] LABS: Blood Urea Nitrogen 17 mg/dL (6-20); Calcium 8.6 mg/dL (8.5-10.5); Carbon Dioxide 24 mmol/L (22-29); Chloride 99 mmol/L (98-107); Glucose 275 mg/dL (65-115); Osmolality Calculated 285 mOsm/kg (285-295); Sodium 132 mmol/L (136-145)
[2022-09-06 05:10] LABS: Anion Gap 13.1 (5-19); Potassium 4.1 mmol/L (3.5-5.1)
--- NOTE | 2022-09-06 07:00 | PC.NURSE ---
Bedside report received from Jacquelin GUEVARA at this time.
[2022-09-06 07:13] LABS: Glucose Point of Care 207 mg/dL (70-110)
[2022-09-06 08:00] VITALS: BP 135/89; PULSE 58; PULSE 80; RESP 16; O2SAT 95
--- NOTE | 2022-09-06 09:01 | P.PN_ITS ---
Subjective Subjective: Culture remain negative Afebrile Patient is stating that after dressing change his scrotal area is very sore He is asking if pain meds dosage could be increased Dressing is not soaked with blood Services Coordinator at the bedside No bowel movement today Vitals/I&O/Wt Last Vital Signs Temp 98.2 F 09/06/22 04:00 Pulse 58 L 09/06/22 08:00 Resp 16 09/06/22 08:00 BP 135/89 09/06/22 08:00 Pulse Ox 95 09/06/22 08:00 O2 Del Method 09/06/22 08:00 O2 Flow Rate 6 09/05/22 20:00 09/05/22 09/06/22 09/06/22 22:59 06:59 14:59 Intake Total 100 / 610 120 / 730 50 / 50 Output Total 750 / 750 650 / 650 Balance -650 / -140 120 / -20 -600 / -600 Weight last 48 hrs Weight 127.006 kg Physical Exam Narrative: Patient is laying supine Patient is shaking because of pain and soreness of his scrotal area Abdomen soft Right ischial area dressing in place which is dry Scrotal area is dry no active drainage Patient is currently room air In good spirits Doing well on room air Urinary Catheter Management: Olivas: Cath Placed During This Visit: yes, but has since been removed by the nurse Reason for Continuing Indwelling Catheter: Chronic Indwelling Urinary Catheter on Admission Date Urinary Catheter Removed: 09/02/22 Time Urinary Catheter Discontinued: 15:45 Data : 09/05/22 02:27 09/06/22 03:38 Micro: Microbiology 09/02/22 15:53 Gram Stain - Final Scrotum Anaerobic Culture - Preliminary Abscess Culture - Preliminary A&P Assessment and plan (1) Neurogenic bladder: (2) Chronic indwelling Olivas catheter: (3) Quadriplegia: (4) Status post incision and drainage: (5) Scrotal abscess: (6) Pressure ulcer of right buttock, stage 4: (7) Chronic incomplete quadriplegia: Plan Patient is asking if his pain medication dosages could be increased I will add a stronger bowel regimen along opioids Cultures are showing preliminary report We have to wait until we see culture sensitive report currently we will continue daptomycin cefepime and Flagyl Afebrile No overnight events Continue DVT prophylaxis, patient is full code Patient is going home with home health services Attestations Medical Necessity Statement*: Awaiting culture and sensitivity Time Spent in Patient Care: 30 Coding Level of Care Code Acute Welcome Center Attendant for Chg Fwd Diagnoses Neurogenic bladder N31.9 Chronic indwelling Olivas catheter Z96.0 Quadriplegia G82.50 Status post incision and drainage Z98.890 Scrotal abscess N49.2 Pressure ulcer of right buttock, stage 4 L89.314 Chronic incomplete quadriplegia G82.50
[2022-09-06] MEDS: baclofen 10 mg Tablet 40 MG PO (09:10)
[2022-09-06] MEDS: gabapentin 300 mg Capsule 600 MG PO ×3 (09:10→21:21)
[2022-09-06] MEDS: famotidine 20 mg/2 mL INJ IVP ×2 (09:10→21:21)
[2022-09-06] MEDS: lactobacillus 1 Tablet 2 TAB PO ×2 (09:10→17:34)
[2022-09-06] MEDS: sennosides-docusate Tablet 1 TAB PO (09:11)
[2022-09-06] MEDS: pantoprazole DR 40 mg Tablet PO (09:11)
[2022-09-06] MEDS: PARoxetine 20 mg Tablet PO (09:11)
[2022-09-06] MEDS: clopidogrel 75 mg Tablet PO (09:11)
[2022-09-06] MEDS: iron complex forte Capsule 1 EACH PO (09:11)
[2022-09-06] MEDS: metroNIDAZOLE 500 MG Tablet PO ×2 (09:11→17:34)
[2022-09-06] MEDS: buPROPion SR (12 HR) 150 mg Tablet PO ×2 (09:14→21:20)
[2022-09-06] MEDS: cefepime 2,000 MG in sodium chloride 0.9% (plus) 50 ML 100 MG IV ×2 (09:14→21:19)
[2022-09-06] MEDS: enoxaparin 40 mg/0.4 mL Syringe SUBCUT (09:14)
[2022-09-06] MEDS: HYDROcodone-acetaminophen 5-325 mg Tablet 2 TAB PO ×2 (09:28→21:29)
[2022-09-06 11:03] LABS: Glucose Point of Care 263 mg/dL (70-110)
[2022-09-06 12:00] VITALS: BP 124/92; PULSE 76; RESP 16; TEMP 36.7; O2SAT 96
[2022-09-06 15:29] VITALS: BP 92/61; PULSE 81; RESP 16; O2SAT 94
[2022-09-06] MEDS: baclofen 10 mg Tablet 80 MG PO (15:33)
[2022-09-06 17:05] LABS: Glucose Point of Care 259 mg/dL (70-110)
[2022-09-06 19:42] VITALS: PULSE 74; RESP 16; O2SAT 94
[2022-09-06 20:00] VITALS: BP 120/79; PULSE 77; RESP 18; TEMP 36.6; O2SAT 96
[2022-09-06] MEDS: baclofen 10 mg Tablet 60 MG PO (21:20)
[2022-09-06] MEDS: atorvastatin 40 mg Tablet PO (21:21)
[2022-09-06 21:33] LABS: Glucose Point of Care 260 mg/dL (70-110)
[2022-09-06] MEDS: insulin glargine 100 units/1 mL 25 UNIT SUBCUT (21:38)
[2022-09-07] VITALS (7 sets, daily range): BP systolic 115–171; BP diastolic 71–88; PULSE 62–98; RESP 16–18; TEMP 36.5–36.7; O2SAT 94–99
[2022-09-07 06:21] LABS: Glucose Point of Care 168 mg/dL (70-110)
[2022-09-07] MEDS: HYDROcodone-acetaminophen 5-325 mg Tablet 2 TAB PO ×2 (07:12→20:50)
--- NOTE | 2022-09-07 09:08 | PC.SOCIAL ---
IMM update Imm updated with patient at bedside. Copy of page 2 provided. Patient verbalized understanding. Copy in chart initialed, dated and timed.
[2022-09-07] MEDS: cefepime 2,000 MG in sodium chloride 0.9% (plus) 50 ML 100 MG IV ×2 (09:20→20:48)
[2022-09-07] MEDS: metroNIDAZOLE 500 MG Tablet PO ×2 (09:21→17:12)
[2022-09-07] MEDS: clopidogrel 75 mg Tablet PO (09:21)
[2022-09-07] MEDS: pantoprazole DR 40 mg Tablet PO (09:21)
[2022-09-07] MEDS: PARoxetine 20 mg Tablet PO (09:21)
[2022-09-07] MEDS: lactobacillus 1 Tablet 2 TAB PO ×2 (09:22→17:12)
[2022-09-07] MEDS: buPROPion SR (12 HR) 150 mg Tablet PO ×2 (09:22→20:49)
[2022-09-07] MEDS: gabapentin 300 mg Capsule 600 MG PO ×3 (09:22→20:49)
[2022-09-07] MEDS: iron complex forte Capsule 1 EACH PO (09:22)
[2022-09-07] MEDS: baclofen 10 mg Tablet 40 MG PO (09:22)
[2022-09-07] MEDS: sennosides-docusate Tablet 2 TAB PO (09:23)
[2022-09-07] MEDS: famotidine 20 mg/2 mL INJ IVP ×2 (09:27→20:50)
[2022-09-07] MEDS: enoxaparin 40 mg/0.4 mL Syringe SUBCUT (09:49)
--- NOTE | 2022-09-07 10:29 | P.PN_ITS ---
Subjective Subjective: Blood sugar today is slightly better I have tried to get up his insulin Afebrile Preliminary report of culture reviewed Patient is stating that with Dilaudid his scrotal soreness has improved Is excited to return home next week Likely we will choose daptomycin, cefepime and p.o. metronidazole Will touch base with Dr. Mirtha mckinley Wound VAC dressing was changed yesterday Vitals/I&O/Wt Last Vital Signs Temp 97.8 F 09/07/22 07:23 Pulse 69 09/07/22 07:59 Resp 16 09/07/22 07:59 BP 137/88 09/07/22 07:23 Pulse Ox 98 09/07/22 07:59 O2 Del Method 09/07/22 07:59 O2 Flow Rate 6 09/07/22 07:51 09/06/22 09/07/22 09/07/22 22:59 06:59 14:59 Intake Total 250 / 690 360 / 1050 510 / 510 Output Total 1550 / 2200 Balance -1300 / -1510 360 / -1150 510 / 510 Physical Exam Narrative: Patient is laying supine Pleasant Currently on room air Abdomen soft S1, S2 Nurse present in the room Scrotal area dressing soaked with mild serous drainage Pleasant during my evaluation No new focal deficit Urinary Catheter Management: Olivas: Cath Placed During This Visit: yes, but has since been removed by the nurse Reason for Continuing Indwelling Catheter: Chronic Indwelling Urinary Catheter on Admission Date Urinary Catheter Removed: 09/02/22 Time Urinary Catheter Discontinued: 15:45 Data : 09/05/22 02:27 09/06/22 03:38 Micro: Microbiology 09/02/22 15:53 Gram Stain - Final Scrotum Anaerobic Culture - Preliminary Abscess Culture - Preliminary Gram positive cocci A&P Assessment and plan (1) Neurogenic bladder: (2) Scrotal abscess: (3) Status post incision and drainage: (4) Pressure ulcer of coccygeal region: (5) Recurrent UTI: (6) Quadriplegia: Plan Hyperglycemia slightly better today I will keep him on current insulin regimen Afebrile Cultures and treat appropriately record has been reviewed Continue daptomycin cefepime and Flagyl Will touch with Dr. Ponce overnight Plan to discharge him home with home health services Daily dressing change and wound care dressing as per Dr. Roy's recommendation Repeat CBC and BMP for tomorrow He is full code DVT prophylaxis on board Attestations Medical Necessity Statement*: Awaiting culture sensitivity report Time Spent in Patient Care: 30 Coding Level of Care Code Acute Installation & Maintenance Executive for Johnny Fwd Diagnoses Neurogenic bladder N31.9 Scrotal abscess N49.2 Status post incision and drainage Z98.890 Pressure ulcer of coccygeal region L89.159 Recurrent UTI N39.0 Quadriplegia G82.50
[2022-09-07 11:15] LABS: Glucose Point of Care 206 mg/dL (70-110)
[2022-09-07] MEDS: baclofen 10 mg Tablet 80 MG PO (17:11)
[2022-09-07 17:12] LABS: Glucose Point of Care 236 mg/dL (70-110)
[2022-09-07] MEDS: HYDROcodone-acetaminophen 5-325 mg Tablet 1 TAB PO (18:29)
[2022-09-07] MEDS: atorvastatin 40 mg Tablet PO (20:49)
[2022-09-07] MEDS: baclofen 10 mg Tablet 60 MG PO (20:49)
[2022-09-07] MEDS: insulin glargine 100 units/1 mL 25 UNIT SUBCUT (21:00)
[2022-09-07 21:16] LABS: Glucose Point of Care 284 mg/dL (70-110)
[2022-09-08] VITALS: BP 141/84; PULSE 78; RESP 17; TEMP 36.5; O2SAT 96
--- NOTE | 2022-09-08 01:13 | P.PN_ITS ---
Subjective Subjective: Infectious disease progress note. Leukocytosis has resolved Patient is currently afebrile. No new complaints today. Plan for discharge today. Tolerated daptomycin while in the hospital. Medications: Reviewed: Yes Vitals/I&O/Wt Last Vital Signs Temp 97.7 F 09/08/22 00:00 Pulse 78 09/08/22 00:00 Resp 17 09/08/22 00:00 BP 141/84 09/08/22 00:00 Pulse Ox 96 09/08/22 00:00 O2 Del Method 09/07/22 20:00 O2 Flow Rate 6 09/07/22 07:51 09/07/22 09/07/22 09/08/22 14:59 22:59 06:59 Intake Total 510 / 510 170 / 680 Balance 510 / 510 170 / 680 Physical Exam Narrative: General: No acute distress, AO x3 HEENT: PERRLA, pupils bilaterally equal and reactive, pallors not present Chest: Normal vesicular breath sounds, no added sounds, equal good air entry bilaterally CVS: S1-S2 regular, no murmurs, no tachycardia, no gallops, no rubs Abdomen: Soft, nontender, no organomegaly, bowel sounds present Urinary Catheter Management: Olivas: Cath Placed During This Visit: yes, but has since been removed by the nurse Reason for Continuing Indwelling Catheter: Chronic Indwelling Urinary Catheter on Admission Date Urinary Catheter Removed: 09/02/22 Time Urinary Catheter Discontinued: 15:45 Data : 09/08/22 04:38 09/08/22 04:38 Micro: Microbiology 09/02/22 15:53 Gram Stain - Final Scrotum Anaerobic Culture - Preliminary Abscess Culture - Preliminary Gram positive cocci A&P Assessment and plan (1) Pressure ulcers of skin of multiple topographic sites: (2) Osteomyelitis hip: (3) Scrotal abscess: Plan 52-year-old male with paraplegia, multiple pressure ulcers over the years, 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 From August 11, 2022, there was noted evidence of RIGHT dorsal buttock decubitus ulcer with peripherally enhancing fluid collection consistent with abscess extending to the RIGHT ischium dorsally on CT of his pelvis. On follow-up CT from September 01, 2022, this abscess has now resolved likely a combination of outpatient debridements at the wound care clinic and IV antibiotics. Changes of osteomyelitis also appearing to be stable to improved. Deep tissue cultures and wound curetting cultures from that time had shown gram- negative rods on gram stain, eventually resulted as E. coli and Klebsiella oxytoca once patient had left the hospital. He had been on treatment with cefepime and metronidazole based on the above culture results. 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 However further evaluation by urology did not show evidence of full-thickness necrosis. Findings were more consistent with a hemiscrotal abscess and cellulitis. Multi ple open pressure wounds in the area remain a risk factor for recurrent skin and soft tissue admissions with extension into deeper tissues. It is likely that current extension into the scrotum may be as a result of the ongoing infection in the area, precipitated by continuously open wounds. We will follow culture results to ensure that no change in susceptibility has occurred as far as his gram-negative rods are concerned. Additionally there might be additional gram-positive cocci such as MRSA or Enterococcus which may be the culprits, not adequately covered by cefepime at this time. Plan: continue Cefepime 2g iv q12h has no evidence of resistant gram-negative's at this point in time. From September 02, 2022, gram stain from hemiscrotal abscess culture had shown rare GPC's, few gram-negative rods and few gram-negative diplococci. Culture has been updated now to represent heavy growth of gram-positive cocci awaiting further identification. Appropriate to broader coverage of MRSA and Enterococcus at this time. Daptomycin has been recommended over vancomycin for this additional coverage given culture results and inability to appropriately monitor vancomycin trough levels at home. It will likely be safer to use daptomycin with once a week CPK and monitoring in the absence of home health services. Patient refuses to consider senior care facility due to poor experience in the past. He will travel twice a week to the wound care clinic for wound VAC changes and other care and once a week to the infectious disease clinic for PICC line care and weekly lab draws. po flagyl 500 mg BID to continue f/up final cx, however it appears that culture results are being delayed at this point. Since patient is otherwise clinically improved and we have some empiric culture data, okay to discharge from an infectious disease standpoint today. We will follow-up his final cultures as an outpatient later this week. Follow-up via televisit on September 18 in ID clinic. Attestations Medical Necessity Statement*: per admitting Coding Level of Care Code Acute Culturist for Johnny Smart Diagnoses Pressure ulcers of skin of multiple topographic sites L89.90 Osteomyelitis hip M86.9 Scrotal abscess N49.2
[2022-09-08 04:00] VITALS: BP 119/79; PULSE 86; RESP 19; TEMP 36.3; O2SAT 95
[2022-09-08] MEDS: HYDROcodone-acetaminophen 5-325 mg Tablet 2 TAB PO ×2 (04:34→12:11)
[2022-09-08 04:54] LABS: Basophils # 0.1 10^3/uL (0.0-0.1); Eosinophils # 0.4 10^3/uL (0.0-0.8); Eosinophils % 5.2 %; Hematocrit 34.1 % (42.0-52.0); Hemoglobin 9.1 g/dL (11.7-16.6); Lymphocytes # 2.5 10^3/uL (0.8-4.8); Lymphocytes % 32.5 %; Mean Corpuscular HGB Conc 26.7 g/dL (30.0-36.0); Mean Corpuscular Hemoglobin 19.2 pg (28.0-34.0); Mean Corpuscular Volume 71.9 fl (80-94); Mean Platelet Volume 9.2 fL (7.4-10.4); Monocytes # 0.8 10^3/uL (0.2-0.9); Monocytes % 10.6 %; Neutrophils % 49.9 %; Nucleated Red Blood Cells % 0 %; Platelet Count 551 10^3/cmm (130-400); Red Blood Count 4.74 10^6/uL (4.1-5.3); Red Cell Distribution Width 23.6 % (12.1-15.1); White Blood Count 7.8 10^3/uL (4.0-10.0)
[2022-09-08 05:15] LABS: Anion Gap 12.1 (5-19); Blood Urea Nitrogen 21 mg/dL (6-20); Calcium 9.1 mg/dL (8.5-10.5); Carbon Dioxide 26 mmol/L (22-29); Chloride 100 mmol/L (98-107); Glomerular Filtration Rate 313.6 mL/min (90-130); Glucose 183 mg/dL (65-115); Osmolality Calculated 286 mOsm/kg (285-295); Potassium 4.1 mmol/L (3.5-5.1); Sodium 134 mmol/L (136-145)
[2022-09-08 06:16] LABS: Glucose Point of Care 208 mg/dL (70-110)
[2022-09-08 07:44] VITALS: BP 105/69; PULSE 68; RESP 18; TEMP 36.8; O2SAT 96
[2022-09-08 07:49] VITALS: PULSE 74; RESP 16; O2SAT 97
[2022-09-08] MEDS: lactobacillus 1 Tablet 2 TAB PO (08:55)
[2022-09-08] MEDS: cefepime 2,000 MG in sodium chloride 0.9% (plus) 50 ML 100 MG IV (08:58)
[2022-09-08] MEDS: gabapentin 300 mg Capsule 600 MG PO (08:59)
[2022-09-08] MEDS: PARoxetine 20 mg Tablet PO (09:00)
[2022-09-08] MEDS: baclofen 10 mg Tablet 40 MG PO (09:00)
[2022-09-08] MEDS: clopidogrel 75 mg Tablet PO (09:00)
[2022-09-08] MEDS: iron complex forte Capsule 1 EACH PO (09:00)
[2022-09-08] MEDS: metroNIDAZOLE 500 MG Tablet PO (09:02)
[2022-09-08] MEDS: sennosides-docusate Tablet 2 TAB PO (09:02)
[2022-09-08] MEDS: famotidine 20 mg/2 mL INJ IVP (09:02)
[2022-09-08] MEDS: pantoprazole DR 40 mg Tablet PO (09:02)
[2022-09-08] MEDS: buPROPion SR (12 HR) 150 mg Tablet PO (09:06)
[2022-09-08] MEDS: enoxaparin 40 mg/0.4 mL Syringe SUBCUT (09:06)
--- NOTE | 2022-09-08 09:09 | PM.DCS ---
Discharge Providers Date of Admission: 09/02/22 15:42 Date of Discharge: September 08, 2022 Attending Provider at Admission: Rj Roy MD Attending Provider at Discharge: Corine Rubalcava MD Primary Care Provider: JC Fonseca Diagnoses at Discharge Discharge Diagnosis (1) Pressure ulcers of skin of multiple topographic sites: Status: Chronic (2) Osteomyelitis hip: Status: Acute (3) Scrotal abscess: Status: Acute Reason for Visit Reason for Visit: Surgery Hospital Course Hospital Course This detailed note is written by Dr. 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 From August 11, 2022, there was noted evidence of?RIGHT dorsal buttock decubitus ulcer with peripherally enhancing fluid collection consistent with abscess extending to the RIGHT ischium dorsally on CT of his pelvis.? On follow-up CT from September 01, 2022, this abscess has now resolved likely a combination of outpatient debridements at the wound care clinic and IV antibiotics.? Changes of osteomyelitis also appearing to be stable to improved. Deep tissue cultures and wound curetting cultures from that time had shown gram-negative rods on gram stain, eventually resulted as E. coli and Klebsiella oxytoca once patient had left the hospital. He had been on treatment with cefepime and metronidazole based on the above culture results. 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 However further evaluation by urology did not show evidence of full-thickness necrosis.? Findings were more consistent with a hemiscrotal abscess and cellulitis.? Multiple open pressure wounds in the area remain a risk factor for recurrent skin and soft tissue admissions with extension into deeper tissues. It is likely that current extension into the scrotum may be as a result of the ongoing infection in the area, precipitated by continuously open wounds.? We will follow culture results to ensure that no change in susceptibility has occurred as far as his gram-negative rods are concerned. Additionally there might be additional gram-positive cocci such as MRSA or Enterococcus which may be the culprits, not adequately covered by cefepime at this time At the time of discharge patient will get IV cefepime, daptomycin, p.o. metronidazole, weekly CPK lab work, he will visit wound care clinic for twice a week wound VAC dressing change once a week visit to infectious disease clinic for PICC line care and CPK Physical Exam Narrative: Patient is laying supine Comfortable Wound VAC with about 50 no blood in epithelial tissue in the back Serous discharge on the dressing of scrotal area Patient is awake and alert Currently on room air Abdomen soft Urinary Catheter Management: Olivas: Cath Placed During This Visit: yes, but has since been removed by the nurse Reason for Continuing Indwelling Catheter: Chronic Indwelling Urinary Catheter on Admission Date Urinary Catheter Removed: 09/02/22 Time Urinary Catheter Discontinued: 15:45 Discharge Data Studies Completed and Pending Completed Studies During Hospitalization Category Date Time Status XR chest 1V portable [id number] Stat Exams 09/02/22 13:05 Completed Pending at discharge Category Date Time Status Abscess Culture and Gram Stain Routine Lab 09/02/22 15:53 Results Anaerobic Culture Routine Lab 09/02/22 15:53 Results Blood Culture Routine Lab 09/02/22 11:40 Results Radiology Impressions Chest X-Ray 09/02/22 13:05 IMPRESSION: 1. No acute cardiopulmonary finding. 2. Right-sided PICC line appearing to be in satisfactory position. Laboratory Results WBC 7.8 10^3/uL (4.0-10.0) 09/08/22 04:38 RBC 4.74 10^6/uL (4.1-5.3) 09/08/22 04:38 Hgb 9.1 g/dL (11.7-16.6) L 09/08/22 04:38 Hct 34.1 % (42.0-52.0) L 09/08/22 04:38 MCV 71.9 fl (80-94) L 09/08/22 04:38 MCH 19.2 pg (28.0-34.0) L 09/08/22 04:38 MCHC 26.7 g/dL (30.0-36.0) L 09/08/22 04:38 RDW 23.6 % (12.1-15.1) H 09/08/22 04:38 Plt Count 551 10^3/cmm (130-400) H 09/08/22 04:38 MPV 9.2 fL (7.4-10.4) 09/08/22 04:38 Neut % (Auto) 49.9 % 09/08/22 04:38 Lymph % (Auto) 32.5 % 09/08/22 04:38 [place] % (Auto) 10.6 % 09/08/22 04:38 Eos % (Auto) 5.2 % 09/08/22 04:38 Baso % (Auto) 1.0 % 09/08/22 04:38 Neut # (Auto) 3.90 10^3/uL (1.8-7.7) 09/08/22 04:38 Lymph # (Auto) 2.5 10^3/uL (0.8-4.8) 09/08/22 04:38 [place] # (Auto) 0.8 10^3/uL (0.2-0.9) 09/08/22 04:38 Eos # (Auto) 0.4 10^3/uL (0.0-0.8) 09/08/22 04:38 Baso # (Auto) 0.1 10^3/uL (0.0-0.1) 09/08/22 04:38 Nucleated RBC % (auto) 0 % 09/08/22 04:38 Nucleated RBCs # 0.0 /100WBC 09/08/22 04:38 PT 15.20 SECONDS (12.1-14.9) H 09/02/22 14:05 INR 1.16 (0.8-1.2) 09/02/22 14:05 APTT 30.2 SECONDS (23.9-36.7) 09/02/22 14:05 Sodium 134 mmol/L (136-145) L 09/08/22 04:38 Potassium 4.1 mmol/L (3.5-5.1) 09/08/22 04:38 Chloride 100 mmol/L (98-107) 09/08/22 04:38 Carbon Dioxide 26 mmol/L (22-29) 09/08/22 04:38 Anion Gap 12.1 (5-19) 09/08/22 04:38 BUN 21 mg/dL (6-20) H 09/08/22 04:38 Creatinine 0.3 mg/dL (0.7-1.2) L 09/08/22 04:38 GFR Calculation 313.6 mL/min (90-130) H 09/08/22 04:38 Glucose 183 mg/dL (65-115) H 09/08/22 04:38 POC Glucose 208 mg/dL (70-110) H 09/08/22 06:12 Estimat Average Glucose 148 09/05/22 02:27 Hemoglobin A1c 6.8 % (4.0-6.0) H 09/05/22 02:27 Calculated Osmolality 286 mOsm/kg (285-295) 09/08/22 04:38 Lactic Acid 2.2 mmol/L (0.5-2.2) 09/02/22 14:05 Lactic Acid (Sepsis) 1.0 mmol/L (0.5-2.2) 09/02/22 19:14 Calcium 9.1 mg/dL (8.5-10.5) 09/08/22 04:38 Phosphorus 3.6 mg/dL (2.5-4.5) 09/03/22 06:05 Magnesium 1.9 mg/dL (1.7-2.3) 09/03/22 06:05 Total Bilirubin 0.2 mg/dL (0.15-1.2) 09/03/22 06:05 AST 10 U/L (0-40) 09/03/22 06:05 ALT 9 U/L (0-41) 09/03/22 06:05 Alkaline Phosphatase 70 U/L (40-130) 09/03/22 06:05 Creatine Kinase 27 U/L (39-308) L 09/05/22 02:27 Total Protein 6.2 g/dL (6.6-8.7) L 09/03/22 06:05 Albumin 3.0 g/dL (3.5-5.2) L 09/03/22 06:05 Globulin 3.2 g/dL (1.3-4.6) 09/03/22 06:05 Vancomycin Trough 13.5 ug/mL (10-15) 09/03/22 23:12 Blood Type O Positive 09/02/22 14:05 Rho(D) Type Positive 09/02/22 14:05 Antibody Screen Negative 09/02/22 14:05 Vitals Last Vital Signs Temp 98.3 F 09/08/22 07:44 Pulse 74 09/08/22 07:49 Resp 16 09/08/22 07:49 BP 105/69 09/08/22 07:44 Pulse Ox 97 09/08/22 07:49 O2 Del Method 09/08/22 07:49 O2 Flow Rate 6 09/07/22 07:51 Discharge Plan Discharge Patient Disposition: Home Health Service Condition: Stable Prescriptions: New hydrocodone-acetaminophen 5-325 mg tablet 1 tab PO Q8H PRN (Reason: pain) Qty: 14 0RF nystatin 100,000 unit/gram powder 1 applic topical BID Qty: 30 1RF Continued albuterol sulfate 90 mcg/actuation HFA aerosol inhaler 2 puff INHALATION Q6H PRN (Reason: Shortness Of Breath) aspirin [Adult Aspirin Regimen] 81 mg tablet,delayed release (DR/EC) 81 mg PO QAM atorvastatin 40 mg tablet 40 mg PO BEDTIME baclofen 20 mg tablet See Rx Instructions .ROUTE .COMPLEX Rx Instructions: 3 TABS IN AM, 4 TABS@ 4PM, AND 2 TABS AT BEDTIME clopidogrel 75 mg tablet 75 mg PO QAM fluticasone propionate [Flonase Allergy Relief] 50 mcg/actuation spray,suspension 2 spray INTRANASAL DAILY PRN (Reason: Allergy Symptoms) gabapentin 300 mg capsule 600 mg PO TID methenamine hippurate 1 gram tablet 1 gm PO BID ascorbate calcium (vitamin C) 500 mg tablet 500 mg PO BID paroxetine HCl 20 mg tablet 20 mg PO DAILY amitriptyline 10 mg tablet 10 mg PO BID cefepime 2 gram recon soln 2 g IV Q12H hydrocodone-acetaminophen 5-325 mg tablet 1 tab PO Q8H PRN (Reason: pain) 8 Days Qty: 24 0RF multivitamin Tablet 1 tab PO DAILY vitamin A 2,400 mcg Capsule 2,400 mcg PO BEDTIME cholecalciferol (vitamin D3) [Vitamin D3] 25 mcg (1,000 unit) Capsule 25 mcg PO BEDTIME Probiotic 15 billion cell Capsule 1 cap PO BID bupropion HCl 150 mg tablet sustained-release 12 hr 150 mg PO BID metformin 1,000 mg tablet 1,000 mg PO BID esomeprazole magnesium [Nexium] 20 mg Capsule,Delayed Release(Dr/Ec) 20 mg PO DAILY coenzyme Q10 [CoQ-10] 100 mg Capsule 100 mg PO BEDTIME ferrous gluconate 324 mg (38 mg iron) Tablet 324 mg PO DAILY@16 d-mannose 500 mg Capsule 500 mg PO BID Blood Builder 1 tab PO DAILY@16 hydrocodone-acetaminophen 5-325 mg Tablet 1 tab PO Q8H PRN (Reason: MODERATE PAIN) Qty: 30 0RF zinc acetate 50 mg (zinc) Capsule 50 mg PO BEDTIME nystatin 500,000 unit tablet 500,000 unit PO TID 5 Days Qty: 15 2RF Changed metronidazole 500 mg Tablet 500 mg PO BID Qty: 60 4RF Discharge Orders: Discharge Order (Routine); Ordered 09/08/22 Ordered By: Corine Rubalcava Other Ambulatory Orders: DME: Hospital Bed (Order) Location: None Selected Ordered By: Rj Roy DME: Miscellaneous (Order) Location: None Selected Ordered By: Corine Rubalcava Referrals: [facility] [Other] [facility] [Provider Group] - 09/18/22 10:00 am (televisit ) Marianne Andujar FNP [Primary Care Provider] - 09/11/22 11:00 am [facility], [Staff Physician] - 09/08/22 2:00 pm (Twice a week visit) Patient Instructions: Opioid Safety, Pain Management Discharge Attestations Time Spent in Discharge Care*: less than 30 min Status at Discharge: Cognitive status at discharge: cognitively intact, Behavioral status at discharge: cooperative, Quality Metrics Clinical Quality Measures [ No reported AMI, CVA or VTE this stay] Coding Level of Care Code Acute g FW DC note Diagnoses Pressure ulcers of skin of multiple topographic sites L89.90 Osteomyelitis hip M86.9 Scrotal abscess N49.2
[2022-09-08 12:00] VITALS: BP 123/79; PULSE 86; RESP 18; TEMP 36.8; O2SAT 98
[2022-09-08 12:00] LABS: Glucose Point of Care 288 mg/dL (70-110)
[2022-09-08 15:38] VITALS: BP 123/79; PULSE 86; RESP 18; TEMP 36.8; O2SAT 98
== END 2022-09-08 15:40 | disposition home health service (06) | DRG 570 ==
LOC: ER 14:09 → OR 14:29 → MEDSURG 15:42
PROVIDERS: Hospitalist; Urology; Admitting Provider Thoracic Surgery (Cardiothoracic Vascular Surgery); Emergency Provider Family Medicine; PCP Nurse Practitioner Family; Visit Provider Internal Medicine
PROC: 0JB90ZZ Excision of Buttock Subcutaneous Tissue and Fascia, Open Approach (ICD-10-PCS; principal; 2022-09-02 15:00)
PROC: 0V950ZX Drainage of Scrotum, Open Approach, Diagnostic (ICD-10-PCS; 2022-09-02 15:00)
DX: L89.314 Pressure ulcer of right buttock, stage 4 (principal); G82.50 Quadriplegia, unspecified; L02.415 Cutaneous abscess of right lower limb; M86.9 Osteomyelitis, unspecified; N49.2 Inflammatory disorders of scrotum; E11.69 Type 2 diabetes mellitus with other specified complication; I25.10 Atherosclerotic heart disease of native coronary artery without angina pectoris; I25.2 Old myocardial infarction; Z99.3 Dependence on wheelchair; E11.65 Type 2 diabetes mellitus with hyperglycemia; Z79.84 Long term (current) use of oral hypoglycemic drugs; E78.5 Hyperlipidemia, unspecified; I10 Essential (primary) hypertension; N31.9 Neuromuscular dysfunction of bladder, unspecified; Z87.440 Personal history of urinary (tract) infections; G47.30 Sleep apnea, unspecified; Z87.891 Personal history of nicotine dependence; Z79.891 Long term (current) use of opiate analgesic; Z79.02 Long term (current) use of antithrombotics/antiplatelets; Z79.82 Long term (current) use of aspirin; Z79.51 Long term (current) use of inhaled steroids; B96.6 Bacteroides fragilis [B. fragilis] as the cause of diseases classified elsewhere; R33.9 Retention of urine, unspecified; Z88.0 Allergy status to penicillin; Z88.2 Allergy status to sulfonamides
CPT/HCPCS: 36415; 36416; 36592; 71045; 80048; 80053; 80202; 82550; 82962; 83036; 83605; 83735; 84100; 85025; 85610; 85730; 86850; 86900; 87040; 87070; 87075; 87077; 87205; 93005; 96372; 99285; J0692; J0878; J1100; J1170; J1200; J1650; J1815; J2405; J2704; J3010; J3370; J3480; J3490; J7030

== ENCOUNTER → 2022-09-15 14:57 | Outpatient (BNVA) | payer MEDICARE, MEDICAID, SELFPAY | PROVIDERS: PCP Nurse Practitioner Family; Visit Provider Thoracic Surgery (Cardiothoracic Vascular Surgery) | DX: I96 Gangrene, not elsewhere classified (principal); L89.214 Pressure ulcer of right hip, stage 4; L89.153 Pressure ulcer of sacral region, stage 3; L89.312 Pressure ulcer of right buttock, stage 2 | CPT/HCPCS: 11042; 11043; 11046; A6212; A6237 ==

== ENCOUNTER → 2022-09-16 12:00 | Outpatient (BNVA) | payer MEDICARE, MEDICAID, SELFPAY | PROVIDERS: PCP Nurse Practitioner Family; Visit Provider Student in an Organized Health Care Education/Training Program | DX: N49.2 Inflammatory disorders of scrotum (principal); M86.9 Osteomyelitis, unspecified | CPT/HCPCS: 99212 ==

== ENCOUNTER 2022-09-19 10:16 | Outpatient (CLI) | payer MEDICARE, MEDICAID, SELFPAY ==
[2022-09-19 11:02] LABS: Basophils # 0.1 10^3/uL (0.0-0.1); Basophils % 0.9 %; Eosinophils # 0.3 10^3/uL (0.0-0.8); Hematocrit 34.7 % (42.0-52.0); Hemoglobin 9.5 g/dL (11.7-16.6); Lymphocytes # 1.8 10^3/uL (0.8-4.8); Lymphocytes % 27.1 %; Mean Corpuscular HGB Conc 27.4 g/dL (30.0-36.0); Mean Corpuscular Hemoglobin 19.7 pg (28.0-34.0); Mean Platelet Volume 9.8 fL (7.4-10.4); Monocytes # 0.8 10^3/uL (0.2-0.9); Monocytes % 11.9 %; Neutrophils # 3.78 10^3/uL (1.8-7.7); Neutrophils % 55.7 %; Nucleated Red Blood Cells % 0 %; Platelet Count 434 10^3/cmm (130-400); Red Blood Count 4.82 10^6/uL (4.1-5.3); Red Cell Distribution Width 22.5 % (12.1-15.1); White Blood Count 6.8 10^3/uL (4.0-10.0)
[2022-09-19 11:31] LABS: Creatine Phosphokinase 61 U/L (39-308)
== END 2022-09-19 10:17 | disposition home or self-care (01) ==
LOC: LAB 10:23
PROVIDERS: PCP Nurse Practitioner Family; Visit Provider Registered Nurse
DX: R79.9 Abnormal finding of blood chemistry, unspecified (principal); Z79.2 Long term (current) use of antibiotics; R94.5 Abnormal results of liver function studies; R94.4 Abnormal results of kidney function studies
CPT/HCPCS: 82550; 85025

== ENCOUNTER → 2022-09-29 14:40 | Outpatient (BNVA) | payer MEDICARE, MEDICAID, SELFPAY | PROVIDERS: PCP Nurse Practitioner Family; Visit Provider Nurse Practitioner Family | DX: I96 Gangrene, not elsewhere classified (principal); T81.31XD Disruption of external operation (surgical) wound, not elsewhere classified, subsequent encounter; Y83.8 Other surgical procedures as the cause of abnormal reaction of the patient, or of later complication, without mention of misadventure at the time of the procedure; L89.214 Pressure ulcer of right hip, stage 4; L89.153 Pressure ulcer of sacral region, stage 3 | CPT/HCPCS: 11042; 97605; A6212; A6237; A6250 ==

== ENCOUNTER → 2022-10-14 15:05 | Outpatient (BNVA) | payer MEDICARE, MEDICAID, SELFPAY | PROVIDERS: PCP Nurse Practitioner Family; Visit Provider Nurse Practitioner Family | DX: I96 Gangrene, not elsewhere classified (principal); T81.89XD Other complications of procedures, not elsewhere classified, subsequent encounter; Y83.8 Other surgical procedures as the cause of abnormal reaction of the patient, or of later complication, without mention of misadventure at the time of the procedure; L89.214 Pressure ulcer of right hip, stage 4; L89.153 Pressure ulcer of sacral region, stage 3 | CPT/HCPCS: 11042; 11045; 97605; A6212; A6237; A6250 ==

== ENCOUNTER 2022-10-16 15:33 | Outpatient (CLI) | payer MEDICARE, MEDICAID, SELFPAY ==
[2022-10-16 15:57] LABS: Basophils # 0.1 10^3/uL (0.0-0.1); Eosinophils # 0.3 10^3/uL (0.0-0.8); Lymphocytes # 2.2 10^3/uL (0.8-4.8); Lymphocytes % 26.7 %; Mean Corpuscular HGB Conc 28.6 g/dL (30.0-36.0); Mean Corpuscular Hemoglobin 20.4 pg (28.0-34.0); Mean Corpuscular Volume 71.3 fl (80-94); Mean Platelet Volume 9.8 fL (7.4-10.4); Monocytes % 11.3 %; Neutrophils # 4.85 10^3/uL (1.8-7.7); Neutrophils % 57.6 %; Nucleated Red Blood Cells % 0 %; Platelet Count 404 10^3/cmm (130-400); Red Blood Count 5.89 10^6/uL (4.1-5.3); White Blood Count 8.4 10^3/uL (4.0-10.0)
[2022-10-16 17:11] LABS: Alanine Aminotransferase 19 U/L (0-41); Albumin Level 3.9 g/dL (3.5-5.2); Alkaline Phosphatase 96 U/L (40-130); Aspartate Amino Transferase 14 U/L (0-40); Creatine Phosphokinase 45 U/L (39-308); Globulin 2.6 g/dL (1.3-4.6); Glomerular Filtration Rate 313.6 mL/min (90-130); Total Bilirubin 0.2 mg/dL (0.15-1.2); Total Protein 6.5 g/dL (6.6-8.7)
== END 2022-10-16 15:34 | disposition home or self-care (01) ==
LOC: LAB 15:36
PROVIDERS: PCP Nurse Practitioner Family; Visit Provider Registered Nurse
DX: R79.9 Abnormal finding of blood chemistry, unspecified (principal); Z79.2 Long term (current) use of antibiotics; R94.5 Abnormal results of liver function studies; R94.4 Abnormal results of kidney function studies
CPT/HCPCS: 36415; 80076; 82550; 82565; 85025

== ENCOUNTER → 2022-10-20 14:14 | Outpatient (BNVA) | payer MEDICARE, MEDICAID, SELFPAY | PROVIDERS: PCP Nurse Practitioner Family; Visit Provider Nurse Practitioner Family | DX: I96 Gangrene, not elsewhere classified (principal); T81.89XD Other complications of procedures, not elsewhere classified, subsequent encounter; Y83.8 Other surgical procedures as the cause of abnormal reaction of the patient, or of later complication, without mention of misadventure at the time of the procedure; L89.214 Pressure ulcer of right hip, stage 4; L89.153 Pressure ulcer of sacral region, stage 3 | CPT/HCPCS: 11042; A6197; A6248 ==

== ENCOUNTER 2022-10-24 15:41 | Outpatient (CLI) | payer MEDICARE, MEDICAID, SELFPAY ==
[2022-10-24 16:32] LABS: Erythrocyte Sedimentation Rate 64 mm/hr (0-10)
== END 2022-10-24 15:42 | disposition home or self-care (01) ==
LOC: LAB 15:49
PROVIDERS: PCP Nurse Practitioner Family; Visit Provider Student in an Organized Health Care Education/Training Program
DX: M86.9 Osteomyelitis, unspecified (principal)
CPT/HCPCS: 36415; 85651; 86140

== ENCOUNTER → 2022-10-28 10:53 | Day surgery (SDC) | payer MEDICARE, MEDICAID, SELFPAY ==
[2022-10-28 11:04] VITALS: BP 101/80; PULSE 97; RESP 18; TEMP 35.9; O2SAT 98
--- NOTE | 2022-10-28 11:13 | PC.NURSE ---
Pt to gi infusions for removal of picc line per Dr. Shannon. Right upper arm picc removed with 40cm cath intact. Site clear, pt instructed on s/s of complications and to return to ED or primary care with any s/s of complications.
== END ==
LOC: GILAB 10:55
PROVIDERS: PCP Registered Nurse; Visit Provider Student in an Organized Health Care Education/Training Program
DX: M86.9 Osteomyelitis, unspecified (principal); L89.153 Pressure ulcer of sacral region, stage 3; L89.214 Pressure ulcer of right hip, stage 4; L89.313 Pressure ulcer of right buttock, stage 3; Z86.14 Personal history of Methicillin resistant Staphylococcus aureus infection
CPT/HCPCS: 11042; 97597; 99212

== ENCOUNTER → 2022-11-11 14:56 | Outpatient (BNVA) | payer MEDICARE, MEDICAID, SELFPAY | PROVIDERS: PCP Registered Nurse; Visit Provider Thoracic Surgery (Cardiothoracic Vascular Surgery) | DX: L89.153 Pressure ulcer of sacral region, stage 3 (principal); L89.214 Pressure ulcer of right hip, stage 4; I96 Gangrene, not elsewhere classified; T81.31XD Disruption of external operation (surgical) wound, not elsewhere classified, subsequent encounter; Y83.8 Other surgical procedures as the cause of abnormal reaction of the patient, or of later complication, without mention of misadventure at the time of the procedure | CPT/HCPCS: 11042; 11045; 97597; 97606; A6212; A6237; A6250 ==

== ENCOUNTER → 2022-11-24 14:06 | Outpatient (BNVA) | payer MEDICARE, MEDICAID, SELFPAY | PROVIDERS: PCP Registered Nurse; Visit Provider Thoracic Surgery (Cardiothoracic Vascular Surgery) | DX: T81.31XD Disruption of external operation (surgical) wound, not elsewhere classified, subsequent encounter (principal); Y83.8 Other surgical procedures as the cause of abnormal reaction of the patient, or of later complication, without mention of misadventure at the time of the procedure; I96 Gangrene, not elsewhere classified; L89.214 Pressure ulcer of right hip, stage 4; L89.153 Pressure ulcer of sacral region, stage 3 | CPT/HCPCS: 11042; 11044; 97605; A6237; A6250 ==

== ENCOUNTER → 2022-11-27 14:23 | Outpatient (BNVA) | payer MEDICARE, MEDICAID, SELFPAY | PROVIDERS: PCP Registered Nurse; Visit Provider Student in an Organized Health Care Education/Training Program | DX: N49.2 Inflammatory disorders of scrotum (principal); M86.9 Osteomyelitis, unspecified | CPT/HCPCS: 99212; 99213 ==

== ENCOUNTER → 2022-12-15 15:41 | Outpatient (BNVA) | payer MEDICARE, MEDICAID, SELFPAY | PROVIDERS: PCP Registered Nurse; Visit Provider Thoracic Surgery (Cardiothoracic Vascular Surgery) | DX: I96 Gangrene, not elsewhere classified (principal); T81.31XD Disruption of external operation (surgical) wound, not elsewhere classified, subsequent encounter; Y83.8 Other surgical procedures as the cause of abnormal reaction of the patient, or of later complication, without mention of misadventure at the time of the procedure; L89.214 Pressure ulcer of right hip, stage 4; L89.153 Pressure ulcer of sacral region, stage 3 | CPT/HCPCS: 11042; 97597; A6237; A6250 ==

== ENCOUNTER → 2022-12-29 14:59 | Outpatient (BNVA) | payer MEDICARE, MEDICAID, SELFPAY | PROVIDERS: PCP Registered Nurse; Visit Provider Thoracic Surgery (Cardiothoracic Vascular Surgery) | DX: I96 Gangrene, not elsewhere classified (principal); L89.214 Pressure ulcer of right hip, stage 4; L89.153 Pressure ulcer of sacral region, stage 3; L98.412 Non-pressure chronic ulcer of buttock with fat layer exposed; L98.492 Non-pressure chronic ulcer of skin of other sites with fat layer exposed | CPT/HCPCS: 11042; 97597; 97605 ==

== ENCOUNTER → 2023-01-12 14:39 | Outpatient (BNVA) | payer MEDICARE, MEDICAID, SELFPAY | PROVIDERS: PCP Registered Nurse; Visit Provider Thoracic Surgery (Cardiothoracic Vascular Surgery) | DX: I96 Gangrene, not elsewhere classified (principal); T81.31XD Disruption of external operation (surgical) wound, not elsewhere classified, subsequent encounter; Y83.8 Other surgical procedures as the cause of abnormal reaction of the patient, or of later complication, without mention of misadventure at the time of the procedure; L89.214 Pressure ulcer of right hip, stage 4; L89.153 Pressure ulcer of sacral region, stage 3 | CPT/HCPCS: 11042; 97597; 97605; A6237 ==

== ENCOUNTER → 2023-01-19 14:28 | Outpatient (BNVA) | payer MEDICARE, MEDICAID, SELFPAY | PROVIDERS: PCP Registered Nurse; Visit Provider Thoracic Surgery (Cardiothoracic Vascular Surgery) | DX: T81.31XD Disruption of external operation (surgical) wound, not elsewhere classified, subsequent encounter (principal); Y83.8 Other surgical procedures as the cause of abnormal reaction of the patient, or of later complication, without mention of misadventure at the time of the procedure; I96 Gangrene, not elsewhere classified; L89.214 Pressure ulcer of right hip, stage 4; L89.153 Pressure ulcer of sacral region, stage 3; Z09 Encounter for follow-up examination after completed treatment for conditions other than malignant neoplasm | CPT/HCPCS: 11042; 97597 ==

== ENCOUNTER → 2023-02-02 14:52 | Outpatient (BNVA) | payer MEDICARE, MEDICAID, SELFPAY | PROVIDERS: PCP Registered Nurse; Visit Provider Thoracic Surgery (Cardiothoracic Vascular Surgery) | DX: T81.31XD Disruption of external operation (surgical) wound, not elsewhere classified, subsequent encounter (principal); Y83.8 Other surgical procedures as the cause of abnormal reaction of the patient, or of later complication, without mention of misadventure at the time of the procedure; I96 Gangrene, not elsewhere classified; L89.214 Pressure ulcer of right hip, stage 4; L89.153 Pressure ulcer of sacral region, stage 3 | CPT/HCPCS: 11042; 97605; A6219; A6237; A6250 ==

== ENCOUNTER → 2023-02-16 13:38 | Outpatient (BNVA) | payer MEDICARE, MEDICAID, SELFPAY | PROVIDERS: PCP Registered Nurse; Visit Provider Thoracic Surgery (Cardiothoracic Vascular Surgery) | DX: L89.214 Pressure ulcer of right hip, stage 4 (principal); S31.819D Unspecified open wound of right buttock, subsequent encounter; Y83.8 Other surgical procedures as the cause of abnormal reaction of the patient, or of later complication, without mention of misadventure at the time of the procedure | CPT/HCPCS: 11042; 97605; A6237; A6250 ==

== ENCOUNTER 2023-02-25 17:59 | Inpatient (IN) | payer MEDICARE, MEDICAID, SELFPAY ==
[2023-02-25] VITALS (7 sets, daily range): BP systolic 112–175; BP diastolic 66–121; PULSE 75–108; RESP 16–22; TEMP 36.9; O2SAT 92–99; BMI 29.2
--- NOTE | 2023-02-25 18:03 | XRR_ITS ---
PROCEDURE INFORMATION: Exam: XR Chest Exam date and time: 02/25/2023 6:13 PM Age: 53 years old Clinical indication: Cough; Prior surgery; Surgery type: Heart TECHNIQUE: Imaging protocol: Radiologic exam of the chest. Views: 1 view. COMPARISON: CR XR chest 1V portable [id number] 09/02/2022 1:37 PM FINDINGS: Lungs: 1.9 cm lobulated nodular density in the right lung base. Mild atelectasis in the left lung base. Emphysema. Wedge-shaped density in the medial right lung base could represent collapse of the right middle lobe. Pleural spaces: Inferior right pneumothorax with pleural separation of 3.3 cm. Heart/Mediastinum: Unremarkable. No cardiomegaly. Bones/joints: Unremarkable. C-spine fusion hardware. XR/XR chest 1V portable [id number] IMPRESSION: 1. Medium size right pneumothorax. 2. 1.9 cm lobulated density in the right lung base. A neoplastic nodule is not excluded. Follow-up with CT in. 3. Possible collapse of the right middle lobe. Attention on CT follow-up.
--- NOTE | 2023-02-25 18:55 | W.ED.GENADLT ---
HPI - General Adult General: Chief complaint: Shortness of Breath/Dyspnea Stated complaint: Possible collapsed lung Time Seen by Provider: 02/25/23 18:03 History of Present Illness: Patient with a history of quadriplegia with recurrent pressure ulcers, chronic indwelling Olivas catheter, recurrent UTIs presents the emergency department as sent in by [facility]. Patient and his state that they have had URI symptoms for the last week, but were getting better. Approximately 2 days ago the patient started having severe shortness of breath that persisted today so he presented to the [facility]. The clinician there was concern for possible pneumonia and obtained a chest x-ray which was negative for pneumonia. The chest x-ray was later over read by radiology who noted a moderate-sized right pneumothorax, the critical findings were relayed to the patient and he was advised to come to the emergency department. He states that while on the way to the emergency department he coughed up some phlegm and his breathing suddenly improved, and he has no longer had shortness of breath since that time. He also states that the pleuritic chest pain he has been experiencing for the last 2 days also resolved at that time. He denies any fevers or chills, nausea or vomiting. Patient has no prior history of any pulmonary issues, states that he was previously a smoker, smoking 2 packs of cigarettes a day for 25 to 30 years, has not smoked in the last 10 to 15 years. No other modifying factors, no other associated symptoms. 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 History of difficult intubation Went through tongue during emergency procedure Hyperlipidemia Hypertension Iron deficiency Neurogenic bladder secondary to spinal cord injury Osteomyelitis hip Pressure ulcer of coccygeal region Pressure ulcer of right buttock, stage 4 Pressure ulcers of skin of multiple topographic sites 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-6) Recurrent UTI Retention of urine due to occlusion of Olivas catheter Scrotal abscess Sleep apnea Urinary retention Secondary to spinal cord injury Wheelchair dependent Surgical History History of cervical spinal surgery History of lumbar surgery History of percutaneous coronary intervention RCA History of percutaneous endoscopic gastrostomy History of tracheostomy subsequently removed, for prolonged ventilation Status post excisional debridement buttocks Status post incision and drainage (09/02/22) With wide debridement of right posterior thigh abscess, jet lavage irrigation and placement of wound VAC by Dr. Roy along with I&D of right hemiscrotal abscess by Dr. Alberts Family History Mother Hypertension Father Arthritis Denies family history of Anesthesia complication Bleeding disorder Social History Smoking and tobacco status: former smoker Alcohol intake: never Caregiver/support person: Yes Lives independently: No Household members: significant other Marital status: Current occupational status: disabled Physical Exam Const: COMMON NORMALS: no acute distress and patient oriented x3 GENERAL APPEARANCE: cooperative and well kempt ORIENTATION/CONSCIOUSNESS: Yes awake HENMT: COMMON NORMALS: normocephalic, atraumatic, hearing grossly normal bilaterally, external ears normal and Normal external nose present HEAD & SCALP: normocephalic and atraumatic FACE & SINUS: normal facial exam NOSE: Normal external nose present EXTERNAL EAR: Yes external ears normal MOUTH: Normal oral and palatal mucosa present THROAT: posterior oropharynx normal Eye: COMMON NORMALS: Equal, round and reactive pupils present and EOMs intact bilaterally PUPIL: Yes Equal, round and reactive pupils present Neck/C-Spine: COMMON NORMALS: supple GENERAL: Yes normal visual inspection CERVICAL SPINE: No Cervical spine tenderness and No step off deformity Chest: COMMONS NORMALS: normal inspection of the chest Resp: COMMON NORMALS: normal respiratory effort, No retractions, No use of accessory muscles and clear to auscultation bilaterally AUSCULTATION: clear to auscultation bilaterally Cardio: COMMON NORMALS: regular rhythm and Peripheral pulses 2+ throughout RATE: tachycardic RHYTHM: regular rhythm PERIPHERAL PULSES: Peripheral pulses 2+ throughout GI: COMMON NORMALS: Normal to inspection, nondistended, normoactive bowel sounds present, Soft to palpation and non-tender PALPATION: Yes Soft to palpation : COMMON NORMALS: Yes no CVA tenderness BLADDER/KIDNEY EXAM: Yes no CVA tenderness PENIS: other (Chronic indwelling Olivas) Back/Pelvis: COMMON NORMALS: no CVA tenderness Extremity: COMMON NORMALS: normal to inspection NARRATIVE EXTREMITY EXAM: Quadriplegic, atrophy bilateral lower extremities GENERAL: No clubbing and No cyanosis Neuro: COMMON NORMALS: patient oriented x3 GAIT: Yes Other gait observations present (Quadriplegic, baseline) Psych: COMMON NORMALS: mental status grossly normal, Normal thought process present, cooperative and activity/motor behavior normal APPEARANCE: Yes well kempt ATTITUDE: Yes calm THOUGHT PROCESS: Normal thought process present Skin: WOUNDS: Yes wounds noted (Multiple skin breakdown wounds sacrum and lower extremities) Course Reevaluation(s): Reevaluation #1: Call from radiology Dr. Gomez who states moderate right-sided pneumothorax, he is unable to view imaging from prior chest x-ray today. Also states concern for right medial lobe infarct versus nodule. Concern for malignancy given patient's extensive smoking history. Time: 18:50 Reevaluation #2: After further evaluation and discussion with the patient and his , we discussed options for management including high flow oxygen versus chest tube placement versus pigtail placement, they are in agreement with medical management and plan for consultation with pulmonology in the morning. They are concerned about being admitted here due to the need for a low air loss mattress given the patient's extensive issues with pressure ulcers. Patient and were offered transfer to a higher level of care but adamantly requested to stay here and asked that we work to expedite the mattress availability. Time: 19:10 Consultations: Consultation #1: Spoke to hospitalist Dr. Baker who is uncomfortable admitting the patient to our facility without pulmonology, CT surgery or general surgery to manage pneumothorax should not require surgical management. Time: 20:18 Consultation #2: Spoke with general surgery Dr. Fabian who agrees medical management with high flow oxygen, no need for chest tube at this time, he is happy to be on consult. Time: 20:20 Consultation #3: Again spoke with Dr. Baker who agreed to admit the patient with Dr. Fabian on consult. He will be down to see the patient. Time: 20:24 Vital Signs: Vital signs: Vital Signs Temperature 98.5 F 02/25/23 18:08 Pulse Rate 102 H 02/25/23 20:30 Respiratory Rate 18 02/25/23 20:30 Blood Pressure 112/66 02/25/23 20:30 Pulse Oximetry 99 02/25/23 20:30 Oxygen Delivery Me thod Non-Rebreather 02/25/23 20:30 MDM - General Adult Medical Decision Making Unable to access imaging from prior chest x-ray today, given patient's marked improvement will obtain a second chest x-ray here to evaluate for need for chest tube placement. Will place patient on 15 L nonrebreather oxygen. Lab Data 02/25/23 19:48 02/25/23 19:48 Radiology Impressions Chest X-Ray 02/25/23 18:03 IMPRESSION: 1. Medium size right pneumothorax. 2. 1.9 cm lobulated density in the right lung base. A neoplastic nodule is not excluded. Follow-up with CT in. 3. Possible collapse of the right middle lobe. Attention on CT follow-up. ADDENDUM: 02/25/23 [id number] THIS REPORT CONTAINS FINDINGS THAT MAY BE CRITICAL TO PATIENT CARE. The findings were verbally communicated via telephone conference with Dr. Schaffer at 6:57 PM CDT on 02/25/2023. The findings were acknowledged and understood. Laboratory Results WBC 13.6 10^3/uL (4.0-10.0) H 02/25/23 19:48 RBC 5.15 10^6/uL (4.1-5.3) 02/25/23 19:48 Hgb 11.9 g/dL (11.7-16.6) 02/25/23 19:48 Hct 39.7 % (42.0-52.0) L 02/25/23 19:48 MCV 77.1 fl (80-94) L 02/25/23 19:48 MCH 23.1 pg (28.0-34.0) L 02/25/23 19:48 MCHC 30.0 g/dL (30.0-36.0) 02/25/23 19:48 RDW 16.1 % (12.1-15.1) H 02/25/23 19:48 Plt Count 476 10^3/cmm (130-400) H 02/25/23 19:48 MPV 9.0 fL (7.4-10.4) 02/25/23 19:48 Neut % (Auto) 66.2 % 02/25/23 19:48 Lymph % (Auto) 18.4 % 02/25/23 19:48 [place] % (Auto) 12.1 % 02/25/23 19:48 Eos % (Auto) 2.1 % 02/25/23 19:48 Baso % (Auto) 0.7 % 02/25/23 19:48 Neut # (Auto) 9.02 10^3/uL (1.8-7.7) H 02/25/23 19:48 Lymph # (Auto) 2.5 10^3/uL (0.8-4.8) 02/25/23 19:48 [place] # (Auto) 1.7 10^3/uL (0.2-0.9) H 02/25/23 19:48 Eos # (Auto) 0.3 10^3/uL (0.0-0.8) 02/25/23 19:48 Baso # (Auto) 0.1 10^3/uL (0.0-0.1) 02/25/23 19:48 Nucleated RBC % (auto) 0 % 02/25/23 19:48 Nucleated RBCs # 0.0 /100WBC 02/25/23 19:48 PT 13.90 SECONDS (12.1-14.9) 02/25/23 19:48 INR 1.03 (0.8-1.2) 02/25/23 19:48 APTT 35.1 SECONDS (23.9-36.7) 02/25/23 19:48 Sodium 136 mmol/L (136-145) 02/25/23 19:48 Potassium 3.6 mmol/L (3.5-5.1) 02/25/23 19:48 Chloride 100 mmol/L (98-107) 02/25/23 19:48 Carbon Dioxide 23 mmol/L (22-29) 02/25/23 19:48 Anion Gap 16.6 (5-19) 02/25/23 19:48 BUN 12 mg/dL (6-20) 02/25/23 19:48 Creatinine 0.3 mg/dL (0.7-1.2) L 02/25/23 19:48 GFR Calculation 312.4 mL/min (90-130) H 02/25/23 19:48 Glucose 141 mg/dL (65-115) H 02/25/23 19:48 Calculated Osmolality 284 mOsm/kg (285-295) L 02/25/23 19:48 Calcium 9.0 mg/dL (8.5-10.5) 02/25/23 19:48 Total Bilirubin 0.3 mg/dL (0.15-1.2) 02/25/23 19:48 AST 14 U/L (0-40) 02/25/23 19:48 ALT 17 U/L (0-41) 02/25/23 19:48 Alkaline Phosphatase 92 U/L (40-130) 02/25/23 19:48 Troponin T Baseline 18 ng/L (0-15) H 02/25/23 19:48 Total Protein 8.1 g/dL (6.6-8.7) 02/25/23 19:48 Albumin 3.5 g/dL (3.5-5.2) 02/25/23 19:48 Globulin 4.6 g/dL (1.3-4.6) 02/25/23 19:48 Critical Care Time Critical Care Time: Critical Care Time: Yes Total Critical Care Time: 37 Attestation: This case had a high probability of a clinically significant, sudden, or life threatening deterioration of this patient's condition which required my full and direct attention, intervention and personal management. Discharge Plan Discharge Patient Disposition: Admitted As Inpatient Clinical Impression: Pneumothorax on right, Incidental lung nodule Condition: Stable Prescriptions: No Action albuterol sulfate 90 mcg/actuation HFA aerosol inhaler 2 puff INHALATION Q6H PRN (Reason: Shortness Of Breath) aspirin [Adult Aspirin Regimen] 81 mg tablet,delayed release (DR/EC) 81 mg PO QAM atorvastatin 40 mg tablet 40 mg PO BEDTIME baclofen 20 mg tablet See Rx Instructions .ROUTE .COMPLEX Rx Instructions: 3 TABS IN AM, 4 TABS@ 4PM, AND 2 TABS AT BEDTIME clopidogrel 75 mg tablet 75 mg PO QAM fluticasone propionate [Flonase Allergy Relief] 50 mcg/actuation spray,suspension 2 spray INTRANASAL DAILY PRN (Reason: Allergy Symptoms) gabapentin 300 mg capsule 600 mg PO TID methenamine hippurate 1 gram tablet 1 gm PO BID ascorbate calcium (vitamin C) 500 mg tablet 500 mg PO BID paroxetine HCl 20 mg tablet 20 mg PO DAILY amitriptyline 10 mg tablet 10 mg PO BID hydrocodone-acetaminophen 5-325 mg tablet 1 tab PO Q8H PRN (Reason: pain) 8 Days Qty: 24 0RF hydrocodone-acetaminophen 5-325 mg tablet 1 tab PO BID PRN (Reason: pain) 14 Days Qty: 30 0RF cefdinir 300 mg capsule 300 mg PO BID 30 Days Qty: 60 0RF cefuroxime axetil 500 mg tablet 500 mg PO BID 15 Days Qty: 30 0RF doxycycline hyclate 100 mg capsule 100 mg PO BID 30 Days Qty: 60 0RF multivitamin Tablet 1 tab PO DAILY vitamin A 2,400 mcg Capsule 2,400 mcg PO BEDTIME cholecalciferol (vitamin D3) [Vitamin D3] 25 mcg (1,000 unit) Capsule 25 mcg PO BEDTIME Probiotic 15 billion cell Capsule 1 cap PO BID bupropion HCl 150 mg tablet sustained-release 12 hr 150 mg PO BID metformin 1,000 mg tablet 1,000 mg PO BID esomeprazole magnesium [Nexium] 20 mg Capsule,Delayed Release(Dr/Ec) 20 mg PO DAILY coenzyme Q10 [CoQ-10] 100 mg Capsule 100 mg PO BEDTIME ferrous gluconate 324 mg (38 mg iron) Tablet 324 mg PO DAILY@16 d-mannose 500 mg Capsule 500 mg PO BID Blood Builder 1 tab PO DAILY@16 hydrocodone-acetaminophen 5-325 mg Tablet 1 tab PO Q8H PRN (Reason: MODERATE PAIN) Qty: 30 0RF zinc acetate 50 mg (zinc) Capsule 50 mg PO BEDTIME nystatin 100,000 unit/gram powder 1 applic topical BID Qty: 30 1RF hydrocodone-acetaminophen 5-325 mg tablet 1 tab PO Q8H PRN (Reason: pain) Qty: 14 0RF nystatin 500,000 unit tablet 500,000 unit PO TID 5 Days Qty: 15 2RF metronidazole 500 mg Tablet 500 mg PO BID Qty: 60 4RF Referrals: Emelia Martínez [Primary Care Provider] - Coding Level of Care Code ED Supervisor Nurse for Johnny Smart
[2023-02-25 20:04] LABS: Basophils # 0.1 10^3/uL (0.0-0.1); Basophils % 0.7 %; Eosinophils # 0.3 10^3/uL (0.0-0.8); Eosinophils % 2.1 %; Hematocrit 39.7 % (42.0-52.0); Hemoglobin 11.9 g/dL (11.7-16.6); Lymphocytes # 2.5 10^3/uL (0.8-4.8); Lymphocytes % 18.4 %; Mean Corpuscular Hemoglobin 23.1 pg (28.0-34.0); Mean Corpuscular Volume 77.1 fl (80-94); Monocytes # 1.7 10^3/uL (0.2-0.9); Monocytes % 12.1 %; Neutrophils # 9.02 10^3/uL (1.8-7.7); Neutrophils % 66.2 %; Nucleated Red Blood Cells % 0 %; Platelet Count 476 10^3/cmm (130-400); Red Blood Count 5.15 10^6/uL (4.1-5.3); Red Cell Distribution Width 16.1 % (12.1-15.1); White Blood Count 13.6 10^3/uL (4.0-10.0)
[2023-02-25 20:29] LABS: Alanine Aminotransferase 17 U/L (0-41); Albumin Level 3.5 g/dL (3.5-5.2); Alkaline Phosphatase 92 U/L (40-130); Anion Gap 16.6 (5-19); Aspartate Amino Transferase 14 U/L (0-40); Blood Urea Nitrogen 12 mg/dL (6-20); Carbon Dioxide 23 mmol/L (22-29); Chloride 100 mmol/L (98-107); Globulin 4.6 g/dL (1.3-4.6); Glomerular Filtration Rate 312.4 mL/min (90-130); Glucose 141 mg/dL (65-115); Osmolality Calculated 284 mOsm/kg (285-295); Potassium 3.6 mmol/L (3.5-5.1); Sodium 136 mmol/L (136-145); Total Bilirubin 0.3 mg/dL (0.15-1.2); Total Protein 8.1 g/dL (6.6-8.7)
--- NOTE | 2023-02-25 20:36 | CTR_ITS ---
PROCEDURE INFORMATION: Exam: CTA Chest With Contrast Exam date and time: 02/25/2023 11:16 PM Age: 53 years old Clinical indication: Shortness of breath; Patient HX: Quadripalegia; Additional info: SOB TECHNIQUE: Imaging protocol: Computed tomographic angiography of the chest with contrast. 3D rendering (Not supervised by radiologist): MIP and/or 3D reconstructed images were created by the technologist. Radiation optimization: All CT scans at this facility use at least one of these dose optimization techniques: automated exposure control; mA and/or kV adjustment per patient size (includes targeted exams where dose is matched to clinical indication); or iterative reconstruction. Contrast material: OMNI 350; Contrast volume: 100 ml; Contrast route: INTRAVENOUS (IV); REPORTING DATA: Count of CT and Cardiac NM exams in prior 12 months: This patient has received 4 known CTs and 0 known cardiac nuclear medicine studies in the 12 months prior to the current study. COMPARISON: CT angio chest PE protcl [id number] 07/13/2022 2:44 PM RADIATION DOSE METRICS: Total DLP (mGy-cm): 430.53 FINDINGS: Pulmonary arteries: Normal. No pulmonary emboli. Aorta: Unremarkable. No aortic aneurysm. No aortic dissection. Lungs: 1.0 cm right upper lobe nodule, series 6, image 122. 1.0 cm nodule in the right upper lobe, image 156. 1.9 cm lobulated nodule in the right lung, image 378. Collapse of the right middle and lower lobes with loss of air bronchograms. Obstruction of the bronchus intermedius and the right middle and lower lobe bronchi. Atelectasis in the left lung and right upper lobe. Mild ground-glass opacities in the posterior right upper lobe. Severe emphysema. Pleural spaces: Large right pneumothorax, increased since the prior chest x-ray. Heart: Unremarkable. No cardiomegaly. No pericardial effusion. Lymph nodes: Prominent mediastinal and hilar lymph nodes are most likely reactive. Bones/joints: Degenerative changes of the thoracic spine with mild curvature. C-spine fusion hardware. Old left rib fractures. No acute fracture. Soft tissues: Unremarkable. CT/CT angio chest PE protcl [id number] IMPRESSION: 1. Increased large right pneumothorax. 2. Collapse of the right middle and lower lobes with filling defects in the bronchi. Follow-up with bronchoscopy recommended. 3. Multiple new right upper lobe nodules, the largest measuring 1.9 cm. For patients at low risk (minimal or absent history of smoking and of other known risk factors), recommend CT Chest at 3-6 months, then consider CT Chest at 18-24 months. For patients at high risk (history of smoking or of other known risk factors), recommend CT Chest at 3-6 months, then CT Chest at 18-24 months. (Reference: Robb) References: Robb Wynn, et al. Guidelines for Management of Incidental Pulmonary Nodules Detected on CT Images: From the Fleischner Society 2017. Radiology. 2017;284(1):228-243.
--- NOTE | 2023-02-25 20:36 | ECG_ITS ---
[facility] Test Date: 2023-02-25 Pat Name: David Chen Department: Room: Gender: Male Account Relationship Manager: : 1970 Requested By: Antonio Cooley Order Number: [id number] Terry MD: Lucas Martinez M.D. Measurements Intervals [place] Rate: 102 P: 55 MD: 147 QRS: 0 QRSD: 86 T: 79 QT: 325 QTc: 425 Interpretive Statements SINUS TACHYCARDIA POSSIBLE LEFT ATRIAL ENLARGEMENT [-0.1mV P-WAVE IN V1/V2] ABNORMAL RHYTHM ECG Compared to ECG 09/02/2022 14:05:00 T-wave abnormality no longer present Electronically Signed On 02-27-2023 1:30:15 CDT by Lucas Martinez M.D. [email or web address] Bowl [email or web address] sunflower county hospitalRxEyest. franc[facility].[employer]ol[employer]/store/OM/[id number]
[2023-02-25 20:41] LABS: INR 1.03 (0.8-1.2)
[2023-02-25 20:42] LABS: Partial Thromboplastin Time 35.1 SECONDS (23.9-36.7)
[2023-02-25 21:03] LABS: Troponin(5th) Baseline 18 ng/L (0-15)
[2023-02-25 21:13] LABS: NT Pro B Type Natriuretic Pept 160 pg/mL (0-125)
--- NOTE | 2023-02-25 21:42 | PM.HP ---
Providers/Chief Complaint Primary Care Provider: Emelia Martínez Chief Complaint: Possible collapsed lung History of Present Illness David Chen is a 53 year old male with a past medical history of CAD, chronic incomplete quadriplegia, chronic indwelling Olivas catheter, noninsulin-dependent type 2 diabetes mellitus, history of cardiac arrest, history of difficult intubation, hyperlipidemia hypertension, history of neurogenic bladder, recurrent UTIs, sleep apnea, recent hospitalization for multiple pressure ulcers, ischial osteomyelitis, requiring IV antibiotic treatments, multiple debridements, currently following up with wound care, bound to motorized wheelchair, who presents [facility] due to shortness of breath, productive cough. Patient tells me that for the last week he has felt more short of breath, more short of breath with exertion, he has a smoking history in the past, none currently, denies any chest discomfort, has had some productive cough. He went to his primary care provider, had a chest x-ray done there was told he was fine, went Home, at home he tells me he had significant episodes of cough, had 1 episode of hemoptysis, and he tells me after that he felt fine, he was later called by his primary care provider as the x-ray was read had pneumothorax,, so he came to [facility] for evaluation, was placed on 15 L nonrebreather. In the emergency room, he had x-ray which showed a moderate right-sided pneumothorax, basilar, ER provider was hesitant about placing chest tube versus pigtail catheter, after discussion with patient's family, ER provider and family decided to proceed with medical management, I was called to evaluate patient however I was hesitant about admitting the patient here without CT surgery backup or pulmonary backup, and I requested either surgery to help in the evaluation or patient to be transferred to tertiary level center. ER provider spoke to general surgery, who agreed with medical management, but is agreeable to follow. Decision was made by ER provider and family to not place an pigtail catheter or chest tube, given location of pneumothorax. Upon review of chest x-ray with right basilar pneumothorax, seems loculated, there is also a pulmonary opacity seen. Patient was seen, he is sitting in his motorized wheelchair, 15 L nonrebreather, no nasal flaring, no intercostal retraction, does have diffuse wheezing, alert awake, following all commands. Tells me that he is comfortable, no chest pain, no palpitations. Patient tells me that has difficulty coughing, due to diaphragmatic contracture problems, with his quadriplegia and spinal cord injury, so he uses 2 fist to hit his chest to help him cough up sputum, he tells me he does this multiple times, ED did it multiple times today, the last time he did it he it helped him cough up sputum, Review of Systems Const: Denies: fever(s) Eyes: Denies: change in vision Card: Denies: chest pain Resp: Reports: dyspnea and productive cough GI: Denies: abdominal pain or nausea : Denies: flank pain or difficulty urinating Musc: Denies: neck pain or back pain Neuro: Denies: headache(s) Medications/Allergies Home Medications Medication Instructions Recorded Confirmed Last Taken Type albuterol sulfate 90 mcg/actuation 2 puff inhalation Q6H PRN 11/17/19 11/27/22 Unknown History aerosol inhaler Shortness Of Breath amitriptyline 10 mg tablet 10 mg PO BID 11/17/19 11/27/22 Unknown History ascorbate calcium (vitamin C) 500 500 mg PO BID 11/17/19 11/27/22 Unknown History mg tablet aspirin 81 mg tablet,delayed 81 mg PO QAM 11/17/19 11/27/22 Unknown History release (Adult Aspirin Regimen) atorvastatin 40 mg tablet 40 mg PO BEDTIME 11/17/19 11/27/22 Unknown History baclofen 20 mg tablet See Rx Instructions .Route .COMPLEX 11/17/19 11/27/22 Unknown History clopidogrel 75 mg tablet 75 mg PO QAM 11/17/19 11/27/22 Unknown History fluticasone propionate 50 2 spray intranasal DAILY PRN 11/17/19 11/27/22 Unknown History mcg/actuation nasal Allergy Symptoms spray,suspension (Flonase Allergy Relief) gabapentin 300 mg capsule 600 mg PO TID 11/17/19 11/27/22 Unknown History methenamine hippurate 1 gram tablet 1 gm PO BID 11/17/19 11/27/22 Unknown History paroxetine HCl 20 mg tablet 20 mg PO DAILY 11/17/19 11/27/22 Unknown History Lactobacillus acidophilus and 1 cap PO BID 07/13/22 11/27/22 Unknown History rhamnosus 15 billion cell capsule (Probiotic) cholecalciferol (vitamin D3) 25 25 mcg PO BEDTIME 07/13/22 11/27/22 Unknown History mcg (1,000 unit) capsule (Vitamin D3) multivitamin 1 tab PO DAILY 07/13/22 11/27/22 Unknown History vitamin A 2,400 mcg capsule 2,400 mcg PO BEDTIME 07/13/22 11/27/22 Unknown History Blood Builder 1 tab PO DAILY@16 08/14/22 11/27/22 Unknown History bupropion HCl 150 mg tablet,12 hr 150 mg PO BID 08/14/22 11/27/22 Unknown History sustained-release coenzyme Q10 100 mg capsule 100 mg PO BEDTIME 08/14/22 11/27/22 Unknown History (CoQ-10) d-mannose 500 mg capsule 500 mg PO BID 08/14/22 11/27/22 Unknown History esomeprazole magnesium 20 mg 20 mg PO DAILY 08/14/22 11/27/22 Unknown History capsule,delayed release (Nexium) ferrous gluconate 324 mg (38 mg 324 mg PO DAILY@16 08/14/22 11/27/22 Unknown History iron) tablet metformin 1,000 mg tablet 1,000 mg PO BID 08/14/22 11/27/22 Unknown History hydrocodone 5 mg-acetaminophen 325 1 tab PO Q8H PRN MODERATE PAIN 08/15/22 11/27/22 Unknown Rx mg tablet #30 tabs hydrocodone 5 mg-acetaminophen 325 1 tab PO Q8H PRN pain 8 days #24 09/01/22 11/27/22 Unknown Rx mg tablet tabs zinc acetate 50 mg (zinc) capsule 50 mg PO BEDTIME 09/03/22 11/27/22 Unknown History hydrocodone 5 mg-acetaminophen 325 1 tab PO Q8H PRN pain #14 tabs 09/08/22 11/27/22 Unknown Rx mg tablet metronidazole 500 mg tablet 500 mg PO BID #60 tabs 09/08/22 11/27/22 Unknown Rx nystatin 100,000 unit/gram topical 1 applic topical BID #30 grams 09/08/22 11/27/22 Unknown Rx powder nystatin 500,000 unit tablet 500,000 unit PO TID 5 days #15 tabs 09/08/22 11/27/22 Unknown Rx cefdinir 300 mg capsule 300 mg PO BID 30 days #60 caps 10/28/22 11/27/22 Unknown Rx cefuroxime axetil 500 mg tablet 500 mg PO BID 15 days #30 tabs 10/28/22 11/27/22 Unknown Rx doxycycline hyclate 100 mg capsule 100 mg PO BID 30 days #60 caps 10/28/22 11/27/22 Unknown Rx hydrocodone 5 mg-acetaminophen 325 1 tab PO BID PRN pain 2 weeks #30 10/28/22 11/27/22 Unknown Rx mg tablet tabs Allergies Allergy/AdvReac Type Severity Reaction Status Date / Time Penicillins Allergy THROAT Verified 11/27/22 14:24 SWELLS SHUT Sulfa (Sulfonamide Allergy HIVES Verified 11/27/22 14:24 Antibiotics) PFSH Acute PFSH: Medical History Anemia ASHD (arteriosclerotic heart disease) Chronic incomplete quadriplegia Chronic indwelling Olivas catheter 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 History of difficult intubation Went through tongue during emergency procedure Hyperlipidemia Hypertension Iron deficiency Neurogenic bladder secondary to spinal cord injury Osteomyelitis hip Pressure ulcer of coccygeal region Pressure ulcer of right buttock, stage 4 Pressure ulcers of skin of multiple topographic sites 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-6) Recurrent UTI Retention of urine due to occlusion of Olivas catheter Scrotal abscess Sleep apnea Urinary retention Secondary to spinal cord injury Wheelchair dependent Surgical History History of cervical spinal surgery History of lumbar surgery History of percutaneous coronary intervention RCA History of percutaneous endoscopic gastrostomy History of tracheostomy subsequently removed, for prolonged ventilation Status post excisional debridement buttocks Status post incision and drainage (09/02/22) With wide debridement of right posterior thigh abscess, jet lavage irrigation and placement of wound VAC by Dr. Roy along with I&D of right hemiscrotal abscess by Dr. Alberts Family History Mother Hypertension Father Arthritis Denies family history of Anesthesia complication Bleeding disorder Social History Smoking and tobacco status: former smoker Alcohol intake: never Caregiver/support person: Yes Lives independently: No Household members: significant other Marital status: Current occupational status: disabled Vitals/I&O/Wt Last Vital Signs Temp 98.5 F 02/25/23 18:08 Pulse 102 H 02/25/23 20:30 Resp 18 02/25/23 20:30 BP 112/66 02/25/23 20:30 Pulse Ox 99 02/25/23 20:30 O2 Del Method Non-Rebreather 02/25/23 20:30 Weight last 48 hrs Weight 95.254 kg Physical Exam Const: COMMON NORMALS: no acute distress and patient oriented x3 HENMT: COMMON NORMALS: normocephalic HEAD & SCALP: normocephalic Eye: COMMON NORMALS: Equal, round and reactive pupils present and EOMs intact bilaterally Neck/C-Spine: COMMON NORMALS: no JVD Resp: COMMON NORMALS: normal respiratory effort, No retractions, No use of accessory muscles and clear to auscultation bilaterally AUSCULTATION: clear to auscultation bilaterally OTHER: Decreased breath sounds over right lung base Cardio: COMMON NORMALS: no JVD, regular rate, regular rhythm, S1 normal heart sound present and S2 normal heart sound present RATE: regular rate RHYTHM: regular rhythm HEART SOUNDS: S1 normal heart sound present and S2 normal heart sound present GI: COMMON NORMALS: Normal to inspection, nondistended, normoactive bowel sounds present, Soft to palpation and non-tender PALPATION: Yes Soft to palpation and Yes No hepatosplenomegaly present Extremity: COMMON NORMALS: no calf tenderness and no pedal edema Neuro: COMMON NORMALS: patient oriented x3, CN's II-XII intact bilaterally, moves all extremities and no focal motor deficits OTHER: Peripheral extremities, muscle wasting bilateral lower extremities Psych: COMMON NORMALS: mental status grossly normal Data 02/25/23 19:48 02/25/23 19:48 A&P Assessment and plan (1) Pneumothorax on right: (2) Incidental lung nodule: (3) Pneumonia: (4) Acute respiratory failure with hypoxia: (5) Chronic incomplete quadriplegia: (6) Chronic indwelling Olivas catheter: (7) Diabetes: Qualifiers: Diabetes mellitus complication detail: with other skin ulcer Diabetes mellitus complication status: with skin complications Diabetes mellitus termination clerk insulin use: without termination clerk use Diabetes mellitus type: type 2 Qualified Code(s): E11.622 - Type 2 diabetes mellitus with other skin ulcer (8) Hyperlipidemia: Qualifiers: Hyperlipidemia type: other hyperlipidemia Qualified Code(s): E78.49 - Other hyperlipidemia (9) Neurogenic bladder: (10) Pressure ulcer of coccygeal region: (11) Emphysema of lung: Plan Acute hypoxic respiratory failure -Likely secondary to right pneumothorax -Possibly component of pneumonia given productive cough -Does have history of emphysema of his lungs, -Repeat chest x-ray in the morning -Monitor respiratory status closely -Currently on 15 L nonrebreather, monitor respiratory status closely -DuoNeb -Budesonide -1 dose of Solu-Medrol 125 for emphysema/COPD exacerbation -We will discuss with pulmonary in the morning -CT angiogram of the chest Right sided pneumothorax -Possibly secondary to underlying emphysema -He does report using both his fist to hit his chest to help him cough due to diaphragmatic issues with his spinal cord injury, possibly traumatic pneumothorax? -Repeat chest x-ray in the morning -We will discuss with pulmonary in the morning Possible pneumonia, -Levaquin Serial EKGs, serial troponins, telemetry monitoring Type 2 diabetes mellitus, low-dose sliding scale Chronic indwelling Olivas catheter, UA He has chronic sacral ulcers that are debrided by wound care will need to be observed Attestations Medical Necessity Statement*: Patient requires hospitalization, inpatient, greater than 2 midnights, for right pneumothorax, acute respiratory failure, emphysema, possible pneumonia, Coding Level of Care Code Critical Care >/= 30 minutes Critical care time (in minutes): 40 The high probability of a clinically significant, sudden or life threatening deterioration, as referenced in this documentation, required my full and direct attention, intervention and personal management. The critical care time shown is in addition to time spent performing any reported separately billable procedures and includes the following: [x] Data and vital sign review and interpretation [x] Patient assessment, examination and intervention [x] Medication orders and management [x] Patient/Family updates as able [x] Care Coordination and Documentation. Diagnoses Pneumothorax on right J93.9 Incidental lung nodule R91.1 Pneumonia J18.9 Acute respiratory failure with hypoxia J96.01 Chronic incomplete quadriplegia G82.50 Chronic indwelling Olivas catheter Z96.0 Diabetes E11.622 Diabetes mellitus complication detail: with other skin ulcer Diabetes mellitus complication status: with skin complications Diabetes mellitus snf insulin use: without termination clerk use Diabetes mellitus type: type 2 Hyperlipidemia E78.49 Hyperlipidemia type: other hyperlipidemia Neurogenic bladder N31.9 Pressure ulcer of coccygeal region L89.159 Emphysema of lung J43.9
--- NOTE | 2023-02-25 22:44 | ECG_ITS ---
[facility] Test Date: 2023-02-25 Pat Name: David Chen Department: Room: Gender: Male Ui Ux Web Developer: : 1970 Requested By: Antonio Cooley Order Number: [id number] Harrison MD: Lucas Martinez M.D. Measurements Intervals [place] Rate: 107 P: 55 MN: 149 QRS: 24 QRSD: 86 T: 78 QT: 323 QTc: 431 Interpretive Statements SINUS TACHYCARDIA POSSIBLE ANTERIOR MYOCARDIAL INFARCTION , OF INDETERMINATE AGE [30 ms Q WAVE IN V3/V4, OR R < 0.2 mV IN V4] Compared to ECG 02/25/2023 20:43:24 Myocardial infarct finding now present Electronically Signed On 02-27-2023 22:13:03 CDT by Lucas Martinez M.D. [email or web address]/store/[id number]
[2023-02-25 23:02] LABS: Troponin 5 2HR 18.41 ng/L (0-15)
[2023-02-25 23:03] LABS: Troponin 5 2HR Delta 0.41 ABS# (0-10)
[2023-02-25 23:06] LABS: C Reactive Protein 79.3 mg/L (0.0-4.9)
[2023-02-25] MEDS: iohexol 350 mg/mL 500 mL Btl (per mL) IV (23:07)
[2023-02-25 23:10] LABS: Procalcitonin 0.06 ng/mL (0-0.5)
[2023-02-26] VITALS (92 sets, daily range): BP systolic 57–220; BP diastolic 43–121; PULSE 56–105; RESP 14–37; TEMP 36.2–36.7; O2SAT 88–100; BMI 28.3
[2023-02-26 00:10] LABS: Adenovirus Not Detected (NOT DETECT); Chlamydia Pneumoniae Not Detected (NOT DETECT); Coronavirus 229E,HKU1,NL63,OC4 Not Detected (NOT DETECT); Human Metapneumovirus Not Detected (NOT DETECT); Human Rhinovirus/Enterovirus Not Detected (NOT DETECT); Influenza A Not Detected (NOT DETECT); Influenza A H1 Not Detected (NOT DETECT); Influenza A H1-2009 Not Detected (NOT DETECT); Influenza A H3 Not Detected (NOT DETECT); Influenza B Not Detected (NOT DETECT); Mycoplasma Pneumoniae Not Detected (NOT DETECT); Parainfluenza Virus Type 1 Not Detected (NOT DETECT); Parainfluenza Virus Type 2 Not Detected (NOT DETECT); Parainfluenza Virus Type 3 Not Detected (NOT DETECT); Parainfluenza Virus Type 4 Not Detected (NOT DETECT); Respiratory Syncytial Virus A Not Detected (NOT DETECT); Respiratory Syncytial Virus B Not Detected (NOT DETECT); SARS-COV-2 Not Detected (NOT DETECT)
[2023-02-26] MEDS: levofloxacin-dextrose 5 % 750 MG/150 ML PREMIX 100 MG IV (01:15)
[2023-02-26 02:11] LABS: Basophils # 0.1 10^3/uL (0.0-0.1); Basophils % 0.8 %; Eosinophils # 0.3 10^3/uL (0.0-0.8); Eosinophils % 2.2 %; Hematocrit 39.6 % (42.0-52.0); Hemoglobin 11.4 g/dL (11.7-16.6); Lymphocytes # 2.3 10^3/uL (0.8-4.8); Lymphocytes % 19.6 %; Mean Corpuscular HGB Conc 28.8 g/dL (30.0-36.0); Mean Corpuscular Hemoglobin 22.6 pg (28.0-34.0); Mean Corpuscular Volume 78.6 fl (80-94); Mean Platelet Volume 9.5 fL (7.4-10.4); Monocytes # 1.7 10^3/uL (0.2-0.9); Monocytes % 14.7 %; Neutrophils # 7.31 10^3/uL (1.8-7.7); Neutrophils % 62.2 %; Nucleated Red Blood Cells % 0 %; Platelet Count 477 10^3/cmm (130-400); Red Blood Count 5.04 10^6/uL (4.1-5.3); Red Cell Distribution Width 16.3 % (12.1-15.1); White Blood Count 11.8 10^3/uL (4.0-10.0)
[2023-02-26 02:38] LABS: Bilirubin Urine Neg (Negative); Blood Urine Trace (Negative); Glucose Urine UA 2+ (Normal); Ketones Urine Negative (Negative); Nitrate Urine Positive (Negative); Protein Urine Neg (Negative); Specific Gravity, Urine 1.015 (1.005-1.030); Urine Appearance Slightly Cloudy (CLEAR); Urine Color Yellow (Yellow); pH Urine 5 (5-7)
[2023-02-26 02:39] LABS: Add Urine Microscopic? YES; Bacteria Urine 2+ /hpf; Leukocyte Esterase Urine 2+ (Negative); Urobilinogen Urine Neg (Negative); WBC Urine 15-25 /hpf (0-5)
[2023-02-26 02:40] LABS: Add Urine Culture? Yes
[2023-02-26 02:42] LABS: NT Pro B Type Natriuretic Pept 136 pg/mL (0-125); Procalcitonin 0.06 ng/mL (0-0.5)
--- NOTE | 2023-02-26 02:45 | ECG_ITS ---
[facility] Test Date: 2023-02-26 Pat Name: David Chen Department: Room: [facility] Gender: Male Media Reconciliation Specialist: : 1970 Requested By: Antonio Cooley Order Number: [id number] Harrison MD: Lucas Martinez M.D. Measurements Intervals [place] Rate: 88 P: 64 TN: 156 QRS: 51 QRSD: 90 T: 81 QT: 351 QTc: 425 Interpretive Statements SINUS RHYTHM Compared to ECG 02/25/2023 22:44:30 Sinus tachycardia no longer present Myocardial infarct finding no longer present Electronically Signed On 02-27-2023 22:14:25 CDT by Lucas Martinez M.D. [email or web address] regional medical centerM2 Connectionsadena health systemSNUPI Technologies/store/OM/[id number]
[2023-02-26 02:54] LABS: Alanine Aminotransferase 18 U/L (0-41); Albumin Level 3.4 g/dL (3.5-5.2); Alkaline Phosphatase 83 U/L (40-130); Aspartate Amino Transferase 18 U/L (0-40); Blood Urea Nitrogen 12 mg/dL (6-20); C Reactive Protein 86.8 mg/L (0.0-4.9); Calcium 9.1 mg/dL (8.5-10.5); Carbon Dioxide 23 mmol/L (22-29); Chloride 98 mmol/L (98-107); Globulin 4.4 g/dL (1.3-4.6); Glomerular Filtration Rate 312.4 mL/min (90-130); Glucose 189 mg/dL (65-115); Magnesium 1.7 mg/dL (1.7-2.3); Osmolality Calculated 285 mOsm/kg (285-295); Phosphorus 3.7 mg/dL (2.5-4.5); Sodium 135 mmol/L (136-145); Total Bilirubin 0.2 mg/dL (0.15-1.2); Total Protein 7.8 g/dL (6.6-8.7)
[2023-02-26 03:00] LABS: Anion Gap 17.7 (5-19); Potassium 3.7 mmol/L (3.5-5.1)
[2023-02-26 04:44] LABS: ABG PH Result 7.37 (7.35-7.45); Arterial Blood Gas Hematocrit 37.6 % (42-52); Base Excess ABG 0.6 mmol/L (-2.0-2.0); Blood Gas Operator Identificat JB; Blood Gas Sample Site Brachial, right; Blood Gas Sample Type Arterial; HCO3 ABG 26.4 mmol/L (22-26); Oxygen Device NRB
[2023-02-26] MEDS: clopidogrel 75 mg Tablet PO (05:29)
[2023-02-26] MEDS: aspirin 81 mg EC Tablet PO (05:29)
--- NOTE | 2023-02-26 07:00 | XRR_ITS ---
PROCEDURE INFORMATION: Exam: XR Chest Exam date and time: 02/26/2023 5:55 AM Age: 53 years old Clinical indication: Shortness of breath; Additional info: SOB TECHNIQUE: Imaging protocol: Radiologic exam of the chest. Views: 1 view. COMPARISON: CR (CHEST, ) 02/25/2023 6:13 PM FINDINGS: Lungs: Right medial basilar atelectasis is seen with mild volume loss in the right hemithorax. No confluent left lung interstitial or airspace opacities. Right basilar lung nodule is once again seen. Pleural spaces: No pleural effusion. Decreased right pneumothorax (20%) is seen with right lateral basilar component. This was better seen on the recent chest CT. Heart/Mediastinum: The heart size is normal. There is a mildly tortuous thoracic aorta. Midline trachea. Bones/joints: No acute abnormalities. Status post lower cervical disc fusion. Soft tissues: Multiple external leads are seen overlying the chest, limiting assessment. XR/XR chest 1V portable [id number] IMPRESSION: 1. Decreased right pneumothorax (20%) with right lateral basilar component. This was better seen on the recent chest CT. 2. Right medial basilar atelectasis.
[2023-02-26] MEDS: ipratropium-albuterol 3 mL Neb INHALATION ×4 (07:41→20:14)
[2023-02-26] MEDS: budesonide 0.5 mg/2 mL Neb INHALATION ×2 (07:41→20:14)
[2023-02-26] MEDS: HYDROcodone-acetaminophen 5-325 mg Tablet 1 TAB PO (07:43)
[2023-02-26 08:09] LABS: Glucose Point of Care 245 mg/dL (70-110)
--- NOTE | 2023-02-26 09:33 | PC.PHAR ---
pts girlfriend shahab [phone] verified pts medications-
[2023-02-26] MEDS: cefTRIAXone 1,000 MG in sodium chloride 0.9% (plus) 50 ML 100 MG IV (09:47)
[2023-02-26] MEDS: buPROPion SR (12 HR) 150 mg Tablet PO ×2 (09:48→17:33)
[2023-02-26] MEDS: gabapentin 300 mg Capsule 600 MG PO ×3 (09:49→20:52)
[2023-02-26 11:03] LABS: Vitamin B12 616 pg/mL (232-1245)
[2023-02-26 12:42] LABS: Glucose Point of Care 179 mg/dL (70-110)
[2023-02-26] MEDS: insulin lispro 100 unit/1 mL SUBCUT ×3 (12:50→21:04)
--- NOTE | 2023-02-26 14:00 | XRR_ITS ---
PROCEDURE INFORMATION: Exam: XR Chest Exam date and time: 02/26/2023 12:14 PM Age: 53 years old Clinical indication: Condition or disease; Lung condition and disease; Pneumothorax TECHNIQUE: Imaging protocol: Radiologic exam of the chest. Views: 1 view. COMPARISON: 1. CR XR chest 1V portable [id number] 02/26/2023 5:[address] angio chest PE protcl [id number] 02/25/2023 11:16 PM FINDINGS: Lungs: Right pneumothorax visible along the lateral inferior right lung. The appearance is similar to the radiographic findings on 02/26/2023 and similar to the licensed sales producer radiograph from chest CT 02/25/2023. CT images showed a large pneumothorax on 02/25/2023. There is stable mild ill-defined opacity in the lower left lung with diffusely asymmetric increased density of the left lung compared to the right. There is very dense opacity in the medial inferior right lung. Pleural spaces: No pleural effusion. Heart/Mediastinum: There is moderate enlargement of the cardiac silhouette. Bones/joints: Bones are unremarkable. XR/XR chest 1V portable [id number] IMPRESSION: 1. Stable right pneumothorax. The size of the pneumothorax is underestimated radiographically. 2. Stable complete atelectasis of the right lower lobe. 3. Asymmetric density throughout the left lung, greatest at the base. This is due in part to right pneumothorax and complete atelectasis of the right lower lobe. Left basilar opacity may represent superimposed atelectasis or infection.
[2023-02-26] MEDS: acetylcysteine 200 mg/mL MDV 10 mL 100 MG INHALATION ×2 (15:09→20:15)
[2023-02-26] MEDS: ferrous gluconate 324 mg Tablet PO (15:16)
--- NOTE | 2023-02-26 16:42 | PM.PN ---
Subjective Subjective: Admitted overnight. Hemodynamically stable. Examination laying comfortably in bed. Awake and alert. On 2 L saturating more than 90%. Denies any nausea, vomiting, headache. States whenever he has to cough he usually hits his lungs with his fifth very hard for a long long time. Patient's pneumothorax is most likely from that. Denies any current chest pain, nausea, vomiting, headache. States wound is usually taken care of by wound care as an outpatient currently. Wound VAC this is managed by wound care as well. Last changed 2 weeks ago. Vitals/I&O/Wt Last Vital Signs Temp 98.0 F 02/26/23 14:00 Pulse 85 02/26/23 15:27 Resp 18 02/26/23 15:17 BP 124/84 02/26/23 14:00 Pulse Ox 93 02/26/23 15:17 O2 Del Method High Flow Nasal Cannula 02/26/23 15:17 O2 Flow Rate 6 02/26/23 15:17 FiO2 15 02/26/23 12:00 02/26/23 02/26/23 02/26/23 06:59 14:59 22:59 Intake Total 390 / 390 Output Total 1000 / 1000 1300 / 1300 Balance -610 / -610 -1300 / -1300 Weight last 48 hrs Weight 91.626 kg Weight 92 kg Weight 95.254 kg Physical Exam Const: COMMON NORMALS: no acute distress and patient oriented x3 HENMT: COMMON NORMALS: normocephalic HEAD & SCALP: normocephalic Eye: COMMON NORMALS: Equal, round and reactive pupils present and EOMs intact bilaterally PUPIL: Yes Equal, round and reactive pupils present Neck/C-Spine: COMMON NORMALS: no JVD Resp: COMMON NORMALS: normal respiratory effort, No retractions, No use of accessory muscles and clear to auscultation bilaterally AUSCULTATION: clear to auscultation bilaterally OTHER: Decreased breath sounds over right lung base Cardio: COMMON NORMALS: no JVD, regular rate, regular rhythm, S1 normal heart sound present and S2 normal heart sound present RATE: regular rate RHYTHM: regular rhythm HEART SOUNDS: S1 normal heart sound present and S2 normal heart sound present GI: COMMON NORMALS: Normal to inspection, nondistended, normoactive bowel sounds present, Soft to palpation, non-tender and No hepatosplenomegaly present PALPATION: Yes Soft to palpation and Yes No hepatosplenomegaly present Extremity: COMMON NORMALS: no calf tenderness and no pedal edema Neuro: COMMON NORMALS: patient oriented x3, CN's II-XII intact bilaterally, moves all extremities and no focal motor deficits OTHER: Peripheral extremities, muscle wasting bilateral lower extremities Psych: COMMON NORMALS: mental status grossly normal Data 02/26/23 01:37 02/26/23 01:37 Micro: Microbiology 02/25/23 22:16 Blood Culture - Preliminary Blood SPECIMEN COLLECTED 02/25/23 22:18 Blood Culture - Preliminary Blood SPECIMEN COLLECTED A&P Assessment and plan (1) Acute respiratory failure with hypoxia: Insetting of pneumothorax along with emphysema. Pulmonary on board. Concern for mucous plug. DuoNebs every 6 hour, budesonide twice daily. Start on Mucomyst. Incentive spirometry and flutter valve. Oxygen supplementation keeping saturation over 88%. Repeat chest x-ray as per pulmonary team. If does not improve might need bronchoscopy. Head of the bed elevated. (2) Pneumothorax on right: (3) Emphysema of lung: (4) UTI (urinary tract infection): Follow-up urine culture, blood culture. Stop Levaquin and switch to IV ceftriaxone. 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 Follow-up with Dr. Roy as an outpatient. Continue wound care as per outpatient therapy. (7) Encounter for management of wound VAC: (8) Incidental lung nodule: (9) Chronic incomplete quadriplegia: (10) Chronic indwelling Olivas catheter: (11) Diabetes: Check A1c. See sliding scale. Carb consistent diet. Qualifiers: Diabetes mellitus complication detail: with other skin ulcer Diabetes mellitus complication status: with skin complications Diabetes mellitus exterminator helper termite insulin use: without care home use Diabetes mellitus type: type 2 Qualified Code(s): E11.622 - Type 2 diabetes mellitus with other skin ulcer (12) Hyperlipidemia: Qualifiers: Hyperlipidemia type: other hyperlipidemia Qualified Code(s): E78.49 - Other hyperlipidemia Plan Restart home psych medications. Full code. Carb consistent cardiac diet. Famotidine for PUD prophylaxis Heparin 5000 every 12 hourly for DVT prophylaxis. Attestations Medical Necessity Statement*: Requires further hospitalization for management of hypoxia in setting of pneumothorax in a patient with emphysema Diagnoses Acute respiratory failure with hypoxia J96.01 Pneumothorax on right J93.9 Emphysema of lung J43.9 UTI (urinary tract infection) N39.0 Neurogenic bladder N31.9 Pressure ulcer of coccygeal region L89.159 Encounter for management of wound VAC Z46.89 Incidental lung nodule R91.1 Chronic incomplete quadriplegia G82.50 Chronic indwelling Olivas catheter Z96.0 Diabetes E11.622 Diabetes mellitus complication detail: with other skin ulcer Diabetes mellitus complication status: with skin complications Diabetes mellitus care home insulin use: without exterminator helper termite use Diabetes mellitus type: type 2 Hyperlipidemia E78.49 Hyperlipidemia type: other hyperlipidemia
[2023-02-26] MEDS: amitriptyline 25 mg Tablet 12.5 MG PO (17:33)
[2023-02-26] MEDS: baclofen 10 mg Tablet 80 MG PO (17:34)
[2023-02-26 17:45] LABS: Glucose Point of Care 160 mg/dL (70-110)
--- NOTE | 2023-02-26 19:23 | PC.NURSE ---
NUrses from wound care clinic came to change wound vac dressing.
--- NOTE | 2023-02-26 19:24 | PC.NURSE ---
Shift summary: uneventful shift. Patient moved to a low air loss mattress due to pressure injuries. All dressings changed, including dressing set to wound vac. Restarted on some of his home meds. Alert and oriented to person, place, time, and situation. Bronchoscopy tommorow, NPO at midnight.
[2023-02-26] MEDS: sodium chloride 3.5% neb 4 mL Neb INHALATION (20:14)
[2023-02-26] MEDS: cholecalciferol (vitamin D3) 1,000 unit Tablet 25 UNIT PO (20:51)
[2023-02-26] MEDS: atorvastatin 40 mg Tablet PO (20:52)
[2023-02-26] MEDS: baclofen 10 mg Tablet 60 MG PO (20:52)
[2023-02-26 21:02] LABS: Glucose Point of Care 221 mg/dL (70-110)
--- NOTE | 2023-02-26 22:26 | PM.CONSULT ---
Providers/Reason For Consult Consulting Physician/Specialty*: Edson Blas MD FCCP/pulmonary critical care Reason for Consult*: Acute hypoxic respiratory failure in patient with bullous emphysema and basilar pneumothorax Requesting Physician: Antonio Lewis MD Attending Physician: Augustus Torres MD Primary Care Provider: Emelia Martínez History of Present Illness History of Present Illness David Chen is a 53 year old male with a past medical history of CAD, chronic incomplete quadriplegia, chronic indwelling Olivas catheter, noninsulin-dependent type 2 diabetes mellitus, history of cardiac arrest, history of difficult intubation, hyperlipidemia hypertension, history of neurogenic bladder with indwelling catheter, recurrent UTIs, sleep apnea, recent hospitalization for multiple pressure ulcers, ischial osteomyelitis, requiring IV antibiotic treatments, multiple debridements, currently following up with wound care, bound to motorized wheelchair, presented to [facility] yesterday night due to shortness of breath, productive cough. Patient reports worsening shortness of breath for last 1 week associated with productive cough. Denies chest pains. Has history of smoking but reports he quit. Reports chest x-ray at PCP office was normal but he continued to have significant episodes of cough, with 1 episode of hemoptysis, after which he felt fine. His PCP called to inform that chest x-ray had pneumothorax,, so he came to [facility] for evaluation Initially in the emergency room he was placed on 15 L nonrebreather and x-ray which showed a moderate right-sided pneumothorax, basilar, ER provider was hesitant about placing chest tube versus pigtail catheter, after discussion with patient's family, ER provider and family decided to proceed with medical management. Decision was made by ER provider and family to not place an pigtail catheter or chest tube, given location of pneumothorax.? Patient had a CT chest which showed increased large right pneumothorax, collapse of right middle and lower lobe with filling defects and bronchi, multiple new right upper lobe nodules largest measuring 1.9 cm. Pulmonary were consulted for large loculated pneumothorax and significant bullous emphysema, with collapsed right middle and lower lobes. Today patient was seen in ICU-in the morning he was on 10 L and by evening he was down to 3 L. He was able to cough out sputum. Serial chest x-ray did not show any worsening of basilar pneumothorax and showed improvement as well. Patient denied any complaints, no chest pain, no palpitations, tells that he has difficulty coughing, due to diaphragmatic contracture problems, with his quadriplegia and spinal cord injury Review of Systems General: Reports: 10 or more systems reviewed and unremarkable except in HPI and below Medications/Allergies Home Medications Medication Instructions Recorded Confirmed Last Taken Type albuterol sulfate 90 mcg/actuation 2 puff inhalation Q6H PRN 11/17/19 02/26/23 02/25/23 History aerosol inhaler Shortness Of Breath amitriptyline 10 mg tablet 10 mg PO BID 11/17/19 02/26/23 02/25/23 History ascorbate calcium (vitamin C) 500 500 mg PO BID 11/17/19 02/26/23 02/25/23 History mg tablet aspirin 81 mg tablet,delayed 81 mg PO QAM 11/17/19 02/26/23 02/25/23 History release (Adult Aspirin Regimen) atorvastatin 40 mg tablet 40 mg PO DAILY@16 11/17/19 02/26/23 02/25/23 History baclofen 20 mg tablet See Rx Instructions .Route .COMPLEX 11/17/19 02/26/23 02/25/23 History clopidogrel 75 mg tablet 75 mg PO QAM 11/17/19 02/26/23 02/25/23 History fluticasone propionate 50 2 spray intranasal DAILY PRN 11/17/19 02/26/23 02/25/23 History mcg/actuation nasal Allergy Symptoms spray,suspension (Flonase Allergy Relief) gabapentin 300 mg capsule 600 mg PO TID 11/17/19 02/26/23 02/25/23 History methenamine hippurate 1 gram tablet 1 gm PO BID 11/17/19 02/26/23 02/25/23 History paroxetine HCl 20 mg tablet 20 mg PO DAILY 11/17/19 02/26/23 02/25/23 History Lactobacillus acidophilus and 1 cap PO BID 07/13/22 02/26/23 02/25/23 History rhamnosus 15 billion cell capsule (Probiotic) cholecalciferol (vitamin D3) 25 25 mcg PO BEDTIME 07/13/22 02/26/23 02/25/23 History mcg (1,000 unit) capsule (Vitamin D3) multivitamin 1 tab PO DAILY 07/13/22 02/26/23 02/25/23 History vitamin A 2,400 mcg capsule 2,400 mcg PO BEDTIME 07/13/22 02/26/23 02/25/23 History Blood Builder 1 tab PO DAILY@16 08/14/22 02/26/23 3 Weeks Ago History ~02/05/23 bupropion HCl 150 mg tablet,12 hr 150 mg PO BID 08/14/22 02/26/23 02/25/23 History sustained-release coenzyme Q10 100 mg capsule 100 mg PO BEDTIME 08/14/22 02/26/23 02/25/23 History (CoQ-10) d-mannose 500 mg capsule 500 mg PO BID 08/14/22 02/26/23 02/25/23 History esomeprazole magnesium 20 mg 20 mg PO DAILY 08/14/22 02/26/23 02/25/23 History capsule,delayed release (Nexium) metformin 1,000 mg tablet 1,000 mg PO BID 08/14/22 02/26/23 02/25/23 History calcium carb 333 mg-vit D3 133 1 tab PO BEDTIME 02/26/23 02/26/23 02/25/23 History unit-mag ox 133 mg-zinc oxide 5 mg tab (Jevon Mag Zinc Plus D3) levofloxacin 500 mg tablet 500 mg PO DAILY 02/26/23 02/26/23 02/25/23 History one took 1 dose Allergies Allergy/AdvReac Type Severity Reaction Status Date / Time Penicillins Allergy THROAT Verified 02/26/23 09:24 SWELLS SHUT Sulfa (Sulfonamide Allergy HIVES Verified 02/26/23 09:24 Antibiotics) Current Medications Generic Name Dose Route Start Last Admin Trade Name Freq PRN Reason Stop Dose Admin Hydrocodone Bitart/Acetaminophen 1 tab 02/25/23 22:15 02/26/23 07:43 Hydrocodone-Acetaminophen 5-325 Mg Tablet PO 1 tab BID PRN Administration pain Acetylcysteine 100 mg 02/26/23 14:00 02/26/23 20:15 Acetylcysteine 200 Mg/Ml Mdv 10 Ml INHALATION 100 mg Q6H.RESP OPAL Administration Albuterol/Ipratropium 3 ml 02/26/23 08:00 02/26/23 20:14 Ipratropium-Albuterol 3 Ml Neb INHALATION 3 ml QID.RESPIRATORY OPAL Administration Amitriptyline HCl 12.5 mg 02/26/23 18:00 02/26/23 17:33 Amitriptyline 25 Mg Tablet PO 12.5 mg BID OPAL Administration Aspirin 81 mg 02/26/23 06:00 02/26/23 05:29 Aspirin 81 Mg Ec Tablet PO 81 mg QAM OPAL Administration Atorvastatin Calcium 40 mg 02/26/23 21:00 02/26/23 20:52 Atorvastatin 40 Mg Tablet PO 40 mg BEDTIME OPAL Administration Baclofen 60 mg 02/26/23 21:00 02/26/23 20:52 Baclofen 10 Mg Tablet PO 60 mg BEDTIME OPAL Administration Budesonide 0.5 mg 02/26/23 08:00 02/26/23 20:14 Budesonide 0.5 Mg/2 Ml Neb INHALATION 0.5 mg BID.RESPIRATORY OPAL Administration Bupropion HCl 150 mg 02/26/23 09:00 02/26/23 17:33 Bupropion Sr (12 Hr) 150 Mg Tablet PO 150 mg BID OPAL Administration Clopidogrel Bisulfate 75 mg 02/26/23 06:00 02/26/23 05:29 Clopidogrel 75 Mg Tablet PO 75 mg QAM OPAL Administration Ferrous Gluconate 324 mg 02/26/23 16:00 02/26/23 15:16 Ferrous Gluconate 324 Mg Tablet PO 324 mg DAILY@16 OPAL Administration Gabapentin 600 mg 02/26/23 09:00 02/26/23 20:52 Gabapentin 300 Mg Capsule PO 600 mg TID OPAL Administration Ceftriaxone Sodium 1,000 mg/ 50 mls @ 100 mls/hr 02/26/23 09:30 02/26/23 09:47 Sodium Chloride IV 100 mls/hr Q24H OPAL Administration Protocol Insulin Human Lispro 0 unit 02/26/23 12:00 02/26/23 21:04 Insulin Lispro 100 Unit/1 Ml SUBCUT 6 unit WM&BEDTIME OPAL Administration Protocol Sodium Chloride 4 ml 02/26/23 20:00 02/26/23 20:14 Sodium Chloride 3.5% Neb 4 Ml Neb INHALATION 4 ml BID.RESPIRATORY OPAL Administration Vitamin D 25 unit 02/25/23 22:30 02/26/23 20:51 Cholecalciferol (Vitamin D3) 1,000 Unit Tablet PO 25 unit BEDTIME OPAL Administration PFSH Acute PFSH: Medical History (Updated 02/26/23 @ 22:40 by Edson Blas MD) Anemia ASHD (arteriosclerotic heart disease) Chronic incomplete quadriplegia Chronic indwelling Olivas catheter 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 History of difficult intubation Went through tongue during emergency procedure Hyperlipidemia Hypertension Iron deficiency Neurogenic bladder secondary to spinal cord injury Osteomyelitis hip Pressure ulcer of coccygeal region Pressure ulcer of right buttock, stage 4 Pressure ulcers of skin of multiple topographic sites 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-6) Recurrent UTI Retention of urine due to occlusion of Olivas catheter Scrotal abscess Sleep apnea Urinary retention Secondary to spinal cord injury Wheelchair dependent Surgical History History of cervical spinal surgery History of lumbar surgery History of percutaneous coronary intervention RCA History of percutaneous endoscopic gastrostomy History of tracheostomy subsequently removed, for prolonged ventilation Status post excisional debridement buttocks Status post incision and drainage (09/02/22) With wide debridement of right posterior thigh abscess, jet lavage irrigation and placement of wound VAC by Dr. Roy along with I&D of right hemiscrotal abscess by Dr. Alberts Family History Mother Hypertension Father Arthritis Denies family history of Anesthesia complication Bleeding disorder Social History Smoking and tobacco status: former smoker Alcohol intake: never Substance/Drug Use: never Caregiver/support person: Yes Lives independently: No Household members: significant other Marital status: Current occupational status: disabled Vitals/I&O/Wt Last Vital Signs Temp 98.1 F 02/26/23 20:00 Pulse 92 02/26/23 22:00 Resp 20 H 02/26/23 22:00 BP 118/79 02/26/23 22:00 Pulse Ox 96 02/26/23 22:00 O2 Del Method Nasal Cannula 02/26/23 20:00 O2 Flow Rate 3 02/26/23 20:00 FiO2 15 02/26/23 16:00 02/26/23 02/26/23 02/26/23 06:59 14:59 22:59 Intake Total 390 / 390 360 / 360 Output Total 1000 / 1000 1300 / 1300 Balance -610 / -610 -1300 / -1300 360 / -940 Weight last 48 hrs Weight 202 lb Weight 202 lb 13.204 oz Weight 210 lb Physical Exam Narrative: General: alert, NAD HEENT: conj clear, EOMI, PERRL, mmm, Neck: supple, no meningismus Heme: no cervical LAP Respiratory: Inspection: No visible deformity of the chest wall Palpation: Trachea is mildly deviated to the right, bilateral symmetric expansion Percussion: Bilateral tympanic percussion note both anterior and posteriorly Auscultation: Reduced breath sounds on right lower lung zone Cardiovascular: rrr, nl s1s2, no mrg Abdomen: soft, nt, nd, no r/g, bs+ Extremities: pulses +, no edema, no c/c, bilateral lower extremity wasting : no CVA tenderness Skin: intact, no rash MSK: no back or neck pain Neurologic: grossly intact Data 02/26/23 01:37 02/26/23 01:37 Other Labs: Radiology Impressions Chest CTA 02/25/23 20:36 IMPRESSION: 1. Increased large right pneumothorax. 2. Collapse of the right middle and lower lobes with filling defects in the bronchi. Follow-up with bronchoscopy recommended. 3. Multiple new right upper lobe nodules, the largest measuring 1.9 cm. For patients at low risk (minimal or absent history of smoking and of other known risk factors), recommend CT Chest at 3-6 months, then consider CT Chest at 18-24 months. For patients at high risk (history of smoking or of other known risk factors), recommend CT Chest at 3-6 months, then CT Chest at 18-24 months. (Reference: Robb) References: Markiehocornelio H, et al. Guidelines for Management of Incidental Pulmonary Nodules Detected on CT Images: From the Fleischner Society 2017. Radiology. 2017;284(1):228-243. ADDENDUM: 02/26/23 0009 THIS REPORT CONTAINS FINDINGS THAT MAY BE CRITICAL TO PATIENT CARE. The findings were verbally communicated via telephone conference with Dr. Ontiveros at 12:07 AM CDT on 02/26/2023. The findings were acknowledged and understood. Chest X-Ray 02/26/23 14:00 IMPRESSION: 1. Stable right pneumothorax. The size of the pneumothorax is underestimated radiographically. 2. Stable complete atelectasis of the right lower lobe. 3. Asymmetric density throughout the left lung, greatest at the base. This is due in part to right pneumothorax and complete atelectasis of the right lower lobe. Left basilar opacity may represent superimposed atelectasis or infection. Laboratory Results WBC 11.8 10^3/uL (4.0-10.0) H 02/26/23 01:37 RBC 5.04 10^6/uL (4.1-5.3) 02/26/23 01:37 Hgb 11.4 g/dL (11.7-16.6) L 02/26/23 01:37 Hct 39.6 % (42.0-52.0) L 02/26/23 01:37 MCV 78.6 fl (80-94) L 02/26/23 01:37 MCH 22.6 pg (28.0-34.0) L 02/26/23 01:37 MCHC 28.8 g/dL (30.0-36.0) L 02/26/23 01:37 RDW 16.3 % (12.1-15.1) H 02/26/23 01:37 Plt Count 477 10^3/cmm (130-400) H 02/26/23 01:37 MPV 9.5 fL (7.4-10.4) 02/26/23 01:37 Neut % (Auto) 62.2 % 02/26/23 01:37 Lymph % (Auto) 19.6 % 02/26/23 01:37 Gordon % (Auto) 14.7 % 02/26/23 01:37 Eos % (Auto) 2.2 % 02/26/23 01:37 Baso % (Auto) 0.8 % 02/26/23 01:37 Neut # (Auto) 7.31 10^3/uL (1.8-7.7) 02/26/23 01:37 Lymph # (Auto) 2.3 10^3/uL (0.8-4.8) 02/26/23 01:37 Gordon # (Auto) 1.7 10^3/uL (0.2-0.9) H 02/26/23 01:37 Eos # (Auto) 0.3 10^3/uL (0.0-0.8) 02/26/23 01:37 Baso # (Auto) 0.1 10^3/uL (0.0-0.1) 02/26/23 01:37 Nucleated RBC % (auto) 0 % 02/26/23 01:37 Nucleated RBCs # 0.0 /100WBC 02/26/23 01:37 PT 13.90 SECONDS (12.1-14.9) 02/25/23 19:48 INR 1.03 (0.8-1.2) 02/25/23 19:48 APTT 35.1 SECONDS (23.9-36.7) 02/25/23 19:48 Specimen Type Arterial 02/26/23 04:30 Sample Site Brachial, right 02/26/23 04:30 ABG pH 7.37 (7.35-7.45) 02/26/23 04:30 ABG pCO2 46.0 mmHg (35-45) H 02/26/23 04:30 ABG pO2 135.0 mmHg (80.0-100.0) H 02/26/23 04:30 ABG HCO3 26.4 mmol/L (22-26) H 02/26/23 04:30 ABG Base Excess 0.6 mmol/L (-2.0-2.0) 02/26/23 04:30 Magno Test N/a 02/26/23 04:30 Hematocrit 37.6 % (42-52) L 02/26/23 04:30 O2 Delivery Device Nrb 02/26/23 04:30 O2 Liters/Min 15.0 % 02/26/23 04:30 Jacket Changer ID Kt 02/26/23 04:30 Sodium 135 mmol/L (136-145) L 02/26/23 01:37 Potassium 3.7 mmol/L (3.5-5.1) 02/26/23 01:37 Chloride 98 mmol/L (98-107) 02/26/23 01:37 Carbon Dioxide 23 mmol/L (22-29) 02/26/23 01:37 Anion Gap 17.7 (5-19) 02/26/23 01:37 BUN 12 mg/dL (6-20) 02/26/23 01:37 Creatinine 0.3 mg/dL (0.7-1.2) L 02/26/23 01:37 GFR Calculation 312.4 mL/min (90-130) H 02/26/23 01:37 Glucose 189 mg/dL (65-115) H 02/26/23 01:37 POC Glucose 221 mg/dL (70-110) H 02/26/23 20:57 Calculated Osmolality 285 mOsm/kg (285-295) 02/26/23 01:37 Calcium 9.1 mg/dL (8.5-10.5) 02/26/23 01:37 Phosphorus 3.7 mg/dL (2.5-4.5) 02/26/23 01:37 Magnesium 1.7 mg/dL (1.7-2.3) 02/26/23 01:37 Total Bilirubin 0.2 mg/dL (0.15-1.2) 02/26/23 01:37 AST 18 U/L (0-40) 02/26/23 01:37 ALT 18 U/L (0-41) 02/26/23 01:37 Alkaline Phosphatase 83 U/L (40-130) 02/26/23 01:37 Troponin T Baseline 18 ng/L (0-15) H 02/25/23 19:48 Troponin T 120 Minute 18.41 ng/L (0-15) H 02/25/23 22:18 Delta Troponin T 0.41 ABS# (0-10) 02/25/23 22:18 Troponin T Hi Sens 6Hr 18.40 ng/L (0-15) H 02/26/23 01:37 Troponin T Hi Sens 6Hr Delta 0.40 ng/L (0-12) 02/26/23 01:37 C-Reactive Protein 86.8 mg/L (0.0-4.9) H 02/26/23 01:37 NT-Pro-B Natriuret Pep 136 pg/mL (0-125) H 02/26/23 01:37 Total Protein 7.8 g/dL (6.6-8.7) 02/26/23 01:37 Albumin 3.4 g/dL (3.5-5.2) L 02/26/23 01:37 Globulin 4.4 g/dL (1.3-4.6) 02/26/23 01:37 Vitamin B12 616 pg/mL (232-1245) 02/26/23 01:37 Procalcitonin 0.06 ng/mL (0-0.5) 02/26/23 01:37 Urine Color Yellow (Yellow) 02/25/23 01:38 Urine Appearance Slightly cloudy (CLEAR) A 02/25/23 01:38 Urine pH 5 (5-7) 02/25/23 01:38 Ur Specific Yale 1.015 (1.005-1.030) 02/25/23 01:38 Urine Protein Neg (Negative) 02/25/23 01:38 Urine Glucose (UA) 2+ (Normal) H 02/25/23 01:38 Urine Ketones Negative (Negative) 02/25/23 01:38 Urine Blood Trace (Negative) H 02/25/23 01:38 Urine Nitrate Positive (Negative) H 02/25/23 01:38 Urine Bilirubin Neg (Negative) 02/25/23 01:38 Urine Urobilinogen Neg mg/dL (Negative) 02/25/23 01:38 Ur Leukocyte Esterase 2+ (Negative) H 02/25/23 01:38 Urine RBC 5-10 /hpf (0-2) H 02/25/23 01:38 Urine WBC 15-25 /hpf (0-5) H 02/25/23 01:38 Ur Squamous Epith Cells None /hpf (0-5) 02/25/23 01:38 Calcium Oxalate Crystal 5-10 /hpf H 02/25/23 01:38 Amorphous Sediment Not Reportable 02/25/23 01:38 Urine Bacteria 2+ /hpf (NONE) H 02/25/23 01:38 Urine Yeast 3+ /hpf H 02/25/23 01:38 Nasal Influ A H1 2008 PCR Not detected (NOT DETECT) 02/25/23 22:21 Adenovirus (PCR) Not detected (NOT DETECT) 02/25/23 22:21 C. pneumoniae DNA (PCR) Not detected (NOT DETECT) 02/25/23 22:21 Coronavirus 229E (PCR) Not detected (NOT DETECT) 02/25/23 22:21 Human Metapneumovir PCR Not detected (NOT DETECT) 02/25/23 22:21 Influenza A (H1) PCR Not detected (NOT DETECT) 02/25/23 22:21 Influenza A (H3) PCR Not detected (NOT DETECT) 02/25/23 22:21 Influenza Type A (PCR) Not detected (NOT DETECT) 02/25/23 22:21 Influenza Type B (PCR) Not detected (NOT DETECT) 02/25/23 22:21 M. pneumoniae (PCR) Not detected (NOT DETECT) 02/25/23 22:21 Parainfluenza 1 (PCR) Not detected (NOT DETECT) 02/25/23 22:21 Parainfluenza 2 (PCR) Not detected (NOT DETECT) 02/25/23 22:21 Parainfluenza 3 (PCR) Not detected (NOT DETECT) 02/25/23 22:21 Parainfluenza 4 (PCR) Not detected (NOT DETECT) 02/25/23 22:21 RSV Type A (PCR) Not detected (NOT DETECT) 02/25/23 22:21 RSV Type B (PCR) Not detected (NOT DETECT) 02/25/23 22:21 Entero/Rhino (PCR) Not detected (NOT DETECT) 02/25/23 22:21 SARS-CoV-2 (PCR) Not detected (NOT DETECT) 02/25/23 22:21 Micro: Microbiology 02/25/23 22:16 Blood Culture - Preliminary Blood SPECIMEN COLLECTED 02/25/23 22:18 Blood Culture - Preliminary Blood SPECIMEN COLLECTED A&P Assessment and plan (1) Pneumothorax on right: (2) Emphysema of lung: (3) Lung nodules: (4) Atelectasis: (5) History of cardiac arrest: (6) Sacral wound: Currently on wound VAC Plan #Basilar pneumothorax-difficult to say with underlying bullous emphysema if it is secondary to ruptured bullae or with obvious debris in bronchus intermedius seen on CT leading to collapse of middle lobe and lower lobe causing pneumo ex vacuo. -Another interesting thing patient has significant apical bullous disease and upper lobe is adhered to apical pleural surface-so unlikely this pneumothorax will worsen -We will continue gentle manual chest physiotherapy and hypertonic saline/Mucomyst nebulization and try to clear airway secretions -We will follow-up with chest x-ray in a.m.-if there is no improvement in basilar pneumothorax and there is continued collapse of right lower lobe and middle lobe-I am going to do bronchoscopic inspection of airways to clear mucous plugging -Another possibility-patient may have had right lower lobe and middle lobe consolidation with pneumonia which have precipitated coughing episodes and resulted in pneumothorax-currently is covered with Rocephin -Yesterday on arrival he was requiring 15 L oxygen-but by today evening he is down to 3 L oxygen #Bullous emphysema -Currently on Pulmicort, DuoNeb nebulization -Covered with antibiotics -We can discharge him with Trelegy 1 puff daily and albuterol as needed -He may need PFTs as outpatient #Right upper lobe nodule and several other suspicious nodules on chest CT -With smoking history-these lesions are suspicious for malignancy -We can obtain a PET/CT as outpatient -With the significant bullous emphysema surrounding these nodules-biopsies have high risk of causing pneumothorax will have ongoing discussion regarding his goals of care and decide on obtaining biopsies as outpatient Consult Attestations Medical Necessity Statement: He may need 24 to 48 hours close monitoring in ICU Time Spent in Patient Care: Greater than 35 minutes (>than 50% of time spent in counselling and/or direct pt care on unit). Critical Care Time: This patient has a high probability of clinically significant, sudden or life threatening deterioration of the patient's (pulmonary) systems required my full, direct attention, the highest level of physician preparedness for urgent intervention and personal management. I managed/supervised life or organ supporting interventions that required frequent physician assessment. I devoted my full attention in the ICU to the direct care of this patient for the period of time indicated above. Time I spent with family or surrogate(s) is included only if the patient was incapable of providing necessary information or participating in decision making. This time includes the following services provided: Telemetry review Mechanical Ventilation Hemodynamic interpretation, assessment and management Review and interpretation of CXR Review and interpretation of lab values Review and interpretation of microbiologic data and culture results Review of medications and administration Review and interpretation of Nutrition requirements and management Discussion of management with other consultants and services Clinical update to family members [x] Data and vital sign review and interpretation [x] Patient assessment, examination and intervention [x] Documentation [x] Medication orders and management Time spent for teaching as well as performing procedures are billed separately and is not included in this note Coding Level of Care Code 19742 Diagnoses Pneumothorax on right J93.9 Emphysema of lung J43.9 Lung nodules R91.8 Atelectasis J98.11 History of cardiac arrest Z86.74 Sacral wound S31.000A Time Spent (min) 75
[2023-02-27] VITALS (53 sets, daily range): BP systolic 87–151; BP diastolic 54–93; PULSE 62–103; RESP 12–27; TEMP 36.5–36.9; O2SAT 89–99
[2023-02-27 04:48] LABS: Basophils # 0.1 10^3/uL (0.0-0.1); Basophils % 1.1 %; Eosinophils # 0.4 10^3/uL (0.0-0.8); Hematocrit 40.9 % (42.0-52.0); Lymphocytes # 1.7 10^3/uL (0.8-4.8); Lymphocytes % 21.8 %; Mean Corpuscular HGB Conc 29.3 g/dL (30.0-36.0); Mean Corpuscular Hemoglobin 23.2 pg (28.0-34.0); Mean Corpuscular Volume 79.1 fl (80-94); Mean Platelet Volume 9.2 fL (7.4-10.4); Monocytes # 0.9 10^3/uL (0.2-0.9); Monocytes % 11.1 %; Neutrophils # 4.83 10^3/uL (1.8-7.7); Neutrophils % 60.7 %; Nucleated Red Blood Cells % 0 %; Platelet Count 435 10^3/cmm (130-400); Red Blood Count 5.17 10^6/uL (4.1-5.3); Red Cell Distribution Width 16.1 % (12.1-15.1)
[2023-02-27 04:58] LABS: Estmated Average Glucose 151; Hemoglobin A1C 6.9 % (4.0-6.0)
--- NOTE | 2023-02-27 05:00 | XRR_ITS ---
PROCEDURE INFORMATION: Exam: XR Chest Exam date and time: 02/27/2023 6:11 AM Age: 53 years old Clinical indication: Other: Pneumo; Patient HX: Quadriplegic; Additional info: Pneumothorax TECHNIQUE: Imaging protocol: Radiologic exam of the chest. Views: 1 view. COMPARISON: CR (CHEST, ) 02/26/2023 12:14 PM FINDINGS: Lungs: Medial right lower lobe collapse redemonstrated. Pleural spaces: Negative for pleural effusion. Previously diagnosed right pneumothorax is radiographically inconspicuous. Heart/Mediastinum: Mild shift of mediastinum to the right of midline. Bones/joints: Unremarkable. XR/XR chest 1V portable [id number] IMPRESSION: 1. No change in exam. Persistent right lower lobe collapse. 2. Previous right pneumothorax is radiographically inconspicuous.
[2023-02-27 05:06] LABS: Alanine Aminotransferase 21 U/L (0-41); Albumin Level 3.2 g/dL (3.5-5.2); Alkaline Phosphatase 84 U/L (40-130); Blood Urea Nitrogen 13 mg/dL (6-20); Calcium 8.8 mg/dL (8.5-10.5); Carbon Dioxide 26 mmol/L (22-29); Chloride 101 mmol/L (98-107); Globulin 4.4 g/dL (1.3-4.6); Glomerular Filtration Rate 312.4 mL/min (90-130); Glucose 154 mg/dL (65-115); Magnesium 1.8 mg/dL (1.7-2.3); Osmolality Calculated 291 mOsm/kg (285-295); Phosphorus 4.8 mg/dL (2.5-4.5); Sodium 139 mmol/L (136-145); Total Bilirubin 0.2 mg/dL (0.15-1.2); Total Protein 7.6 g/dL (6.6-8.7)
[2023-02-27 05:09] LABS: Anion Gap 15.8 (5-19); Aspartate Amino Transferase 24 U/L (0-40); Potassium 3.8 mmol/L (3.5-5.1)
[2023-02-27 05:11] LABS: Cholesterol 96 mg/dL (0-200); HDL Cholesterol 30 mg/dL (60-100); LDL Cholesterol Calculated 45 mg/dL (50-129); Triglycerides 106 mg/dL (0-150); VLDL Cholestrol Calculation 21 mg/dL (0-30)
--- NOTE | 2023-02-27 06:57 | ANES.PREANE2 ---
Pre-Anesthetic Assessment Height/Weight: Height 1.8 m Weight 91.626 kg Temp Pulse Resp BP Pulse Ox O2 Del Method O2 Flow Rate 98.0 F 74 20 H 108/82 92 Nasal Cannula 3 02/27/23 04:00 02/27/23 06:00 02/27/23 04:00 02/27/23 04:00 02/27/23 02:00 02/26/23 20:00 02/26/23 20:00 FiO2 15 02/26/23 16:00 Operation Date: 02/27/23 07:00 Proposed Procedures p Bronchoscopy Bronchoscopy For Airway Clearence/Foreign Body Removal(Not Applicable) - Edson Solorzano DatarMD Familial anesthetic complications: PONV Was Beta Marlene taken within 24 hours: N/A Was Clonidine taken within 24 hours: N/A Last intake: > 8hrs Social No alcohol and No tobacco Exam alert, oriented x 3, clear to auscultation bilaterally and regular rate & rhythm Diminished R side,, coarse breaths ounds Airway Mallampati: Class IV Dentition: full Comments: Comments: emergent intubation after cardiac arrest resulted in tongue laceration, which healed on its own, required no surgical intervention hx tracheostomy Pulmonary Chronic Obstructive Pulmonary Disease and Sleep Apnea PTX (R) CV/HEM Coronary Artery Disease, Hypertension and Myocardial Infarction (cardiac arrest) Metabolic Diabetes Mellitus and Morbid Obesity Neuropsych C5-6 spinal cord injury, Quadriplegia from a fall, autonomic dysreflexia Anesthetic Plan ASA status: 4 Anesthesia: General Risk of > 500 ml blood loss (7ml/kg in children): No Medications/Allergies Home Medications Medication Instructions Recorded Confirmed Last Taken Type albuterol sulfate 90 mcg/actuation 2 puff inhalation Q6H PRN 11/17/19 02/26/23 02/25/23 History aerosol inhaler Shortness Of Breath amitriptyline 10 mg tablet 10 mg PO BID 11/17/19 02/26/23 02/25/23 History ascorbate calcium (vitamin C) 500 500 mg PO BID 11/17/19 02/26/23 02/25/23 History mg tablet aspirin 81 mg tablet,delayed 81 mg PO QAM 11/17/19 02/26/23 02/25/23 History release (Adult Aspirin Regimen) atorvastatin 40 mg tablet 40 mg PO DAILY@16 11/17/19 02/26/23 02/25/23 History baclofen 20 mg tablet See Rx Instructions .Route .COMPLEX 11/17/19 02/26/23 02/25/23 History clopidogrel 75 mg tablet 75 mg PO QAM 11/17/19 02/26/23 02/25/23 History fluticasone propionate 50 2 spray intranasal DAILY PRN 11/17/19 02/26/23 02/25/23 History mcg/actuation nasal Allergy Symptoms spray,suspension (Flonase Allergy Relief) gabapentin 300 mg capsule 600 mg PO TID 11/17/19 02/26/23 02/25/23 History methenamine hippurate 1 gram tablet 1 gm PO BID 11/17/19 02/26/23 02/25/23 History paroxetine HCl 20 mg tablet 20 mg PO DAILY 11/17/19 02/26/23 02/25/23 History Lactobacillus acidophilus and 1 cap PO BID 07/13/22 02/26/23 02/25/23 History rhamnosus 15 billion cell capsule (Probiotic) cholecalciferol (vitamin D3) 25 25 mcg PO BEDTIME 07/13/22 02/26/23 02/25/23 History mcg (1,000 unit) capsule (Vitamin D3) multivitamin 1 tab PO DAILY 07/13/22 02/26/23 02/25/23 History vitamin A 2,400 mcg capsule 2,400 mcg PO BEDTIME 07/13/22 02/26/23 02/25/23 History Blood Builder 1 tab PO DAILY@16 08/14/22 02/26/23 3 Weeks Ago History ~02/05/23 bupropion HCl 150 mg tablet,12 hr 150 mg PO BID 08/14/22 02/26/23 02/25/23 History sustained-release coenzyme Q10 100 mg capsule 100 mg PO BEDTIME 08/14/22 02/26/23 02/25/23 History (CoQ-10) d-mannose 500 mg capsule 500 mg PO BID 08/14/22 02/26/23 02/25/23 History esomeprazole magnesium 20 mg 20 mg PO DAILY 08/14/22 02/26/23 02/25/23 History capsule,delayed release (Nexium) metformin 1,000 mg tablet 1,000 mg PO BID 08/14/22 02/26/23 02/25/23 History calcium carb 333 mg-vit D3 133 1 tab PO BEDTIME 02/26/23 02/26/23 02/25/23 History unit-mag ox 133 mg-zinc oxide 5 mg tab (Jevon Mag Zinc Plus D3) levofloxacin 500 mg tablet 500 mg PO DAILY 02/26/23 02/26/23 02/25/23 History one took 1 dose Allergies Allergy/AdvReac Type Severity Reaction Status Date / Time Penicillins Allergy THROAT Verified 02/26/23 09:24 SWELLS SHUT Sulfa (Sulfonamide Allergy HIVES Verified 02/26/23 09:24 Antibiotics) Current Medications Generic Name Dose Route Start Last Admin Trade Name Freq PRN Reason Stop Dose Admin Hydrocodone Bitart/Acetaminophen 1 tab 02/25/23 22:15 02/26/23 07:43 Hydrocodone-Acetaminophen 5-325 Mg Tablet PO 1 tab BID PRN Administration pain Acetylcysteine 100 mg 02/26/23 14:00 02/27/23 03:30 Acetylcysteine 200 Mg/Ml Mdv 10 Ml INHALATION Not Given Q6H.RESP OPAL Albuterol/Ipratropium 3 ml 02/26/23 08:00 02/26/23 20:14 Ipratropium-Albuterol 3 Ml Neb INHALATION 3 ml QID.RESPIRATORY OPAL Administration Amitriptyline HCl 12.5 mg 02/26/23 18:00 02/26/23 17:33 Amitriptyline 25 Mg Tablet PO 12.5 mg BID OPAL Administration Aspirin 81 mg 02/26/23 06:00 02/27/23 06:18 Aspirin 81 Mg Ec Tablet PO Not Given QAM OPAL Atorvastatin Calcium 40 mg 02/26/23 21:00 02/26/23 20:52 Atorvastatin 40 Mg Tablet PO 40 mg BEDTIME OPAL Administration Baclofen 60 mg 02/26/23 21:00 02/26/23 20:52 Baclofen 10 Mg Tablet PO 60 mg BEDTIME OPAL Administration Budesonide 0.5 mg 02/26/23 08:00 02/26/23 20:14 Budesonide 0.5 Mg/2 Ml Neb INHALATION 0.5 mg BID.RESPIRATORY OPAL Administration Bupropion HCl 150 mg 02/26/23 09:00 02/26/23 17:33 Bupropion Sr (12 Hr) 150 Mg Tablet PO 150 mg BID OPAL Administration Clopidogrel Bisulfate 75 mg 02/26/23 06:00 02/27/23 06:19 Clopidogrel 75 Mg Tablet PO Not Given QAM [facility] Ferrous Gluconate 324 mg 02/26/23 16:00 02/26/23 15:16 Ferrous Gluconate 324 Mg Tablet PO 324 mg DAILY@16 OPAL Administration Gabapentin 600 mg 02/26/23 09:00 02/26/23 20:52 Gabapentin 300 Mg Capsule PO 600 mg TID OPAL Administration Ceftriaxone Sodium 1,000 mg/ 50 mls @ 100 mls/hr 02/26/23 09:30 02/26/23 09:47 Sodium Chloride IV 100 mls/hr Q24H OPAL Administration Protocol Insulin Human Lispro 0 unit 02/26/23 12:00 02/26/23 21:04 Insulin Lispro 100 Unit/1 Ml SUBCUT 6 unit WM&BEDTIME OPAL Administration Protocol Sodium Chloride 4 ml 02/26/23 20:00 02/26/23 20:14 Sodium Chloride 3.5% Neb 4 Ml Neb INHALATION 4 ml BID.RESPIRATORY OPAL Administration Vitamin D 25 unit 02/25/23 22:30 02/26/23 20:51 Cholecalciferol (Vitamin D3) 1,000 Unit Tablet PO 25 unit BEDTIME OPAL Administration [facility] Anesthesia Medical History (Updated 02/26/23 @ 22:40 by Edson Blas MD) Anemia ASHD (arteriosclerotic heart disease) Chronic incomplete quadriplegia Chronic indwelling Olivas catheter 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 History of difficult intubation Went through tongue during emergency procedure Hyperlipidemia Hypertension Iron deficiency Neurogenic bladder secondary to spinal cord injury Osteomyelitis hip Pressure ulcer of coccygeal region Pressure ulcer of right buttock, stage 4 Pressure ulcers of skin of multiple topographic sites 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-6) Recurrent UTI Retention of urine due to occlusion of Olivas catheter Scrotal abscess Sleep apnea Urinary retention Secondary to spinal cord injury Wheelchair dependent Surgical History History of cervical spinal surgery History of lumbar surgery History of percutaneous coronary intervention RCA History of percutaneous endoscopic gastrostomy History of tracheostomy subsequently removed, for prolonged ventilation Status post excisional debridement buttocks Status post incision and drainage (09/02/22) With wide debridement of right posterior thigh abscess, jet lavage irrigation and placement of wound VAC by Dr. Roy along with I&D of right hemiscrotal abscess by Dr. Alberts Family History Mother Hypertension Father Arthritis Denies family history of Anesthesia complication Bleeding disorder Social History Smoking and tobacco status: former smoker Alcohol intake: never Substance/Drug Use: never Caregiver/support person: Yes Lives independently: No Household members: significant other Marital status: Current occupational status: disabled Data Anesthesia 02/27/23 03:56 02/27/23 03:56 Short CBC 02/25/23 02/26/23 02/27/23 Range/Units 19:48 01:37 03:56 WBC 13.6 H 11.8 H 8.0 (4.0-10.0) 10^3/uL Hgb 11.9 11.4 L 12.0 (11.7-16.6) g/dL Hct 39.7 L 39.6 L 40.9 L (42.0-52.0) % MCV 77.1 L 78.6 L 79.1 L (80-94) fl Plt Count 476 H 477 H 435 H (130-400) 10^3/cmm Neut % (Auto) 66.2 62.2 60.7 % Neut # (Auto) 9.02 H 7.31 4.83 (1.8-7.7) 10^3/uL BMP 02/25/23 02/26/23 02/27/23 19:48 01:37 03:56 Sodium 136 135 L 139 Potassium 3.6 3.7 3.8 Chloride 100 98 101 Carbon Dioxide 23 23 26 BUN 12 12 13 Creatinine 0.3 L 0.3 L 0.3 L Glucose 141 H 189 H 154 H Calcium 9.0 9.1 8.8 Cardiac Enzymes 02/25/23 02/25/23 02/25/23 Range/Units 19:48 19:48 22:18 Troponin T Baseline 18 H (0-15) ng/L Troponin T 120 Minute 18.41 H (0-15) ng/L Delta Troponin T 0.41 (0-10) ABS# Troponin T Hi Sens 6Hr (0-15) ng/L Troponin T Hi Sens 6Hr Delta (0-12) ng/L NT-Pro-B Natriuret Pep 160 H (0-125) pg/mL 02/26/23 02/26/23 Range/Units 01:37 01:37 Troponin T Baseline (0-15) ng/L Troponin T 120 Minute (0-15) ng/L Delta Troponin T (0-10) ABS# Troponin T Hi Sens 6Hr 18.40 H (0-15) ng/L Troponin T Hi Sens 6Hr Delta 0.40 (0-12) ng/L NT-Pro-B Natriuret Pep 136 H (0-125) pg/mL Liver Function 02/25/23 02/26/23 02/27/23 Range/Units 19:48 01:37 03:56 Total Bilirubin 0.3 0.2 0.2 (0.15-1.2) mg/dL AST 14 18 24 (0-40) U/L ALT 17 18 21 (0-41) U/L Alkaline Phosphatase 92 83 84 (40-130) U/L Albumin 3.5 3.4 L 3.2 L (3.5-5.2) g/dL Urine 02/25/23 Range/Units 01:38 Urine Color Yellow (Yellow) Urine Appearance Slightly cloudy A (CLEAR) Urine pH 5 (5-7) Ur Specific Mears 1.015 (1.005-1.030) Urine Protein Neg (Negative) Urine Glucose (UA) 2+ H (Normal) Urine Ketones Negative (Negative) Urine Nitrate Positive H (Negative) Urine Bilirubin Neg (Negative) Ur Leukocyte Esterase 2+ H (Negative) Urine RBC 5-10 H (0-2) /hpf Urine WBC 15-25 H (0-5) /hpf COVID Results 02/25/23 22:21 Coronavirus 229E (PCR) Not detected SARS-CoV-2 (PCR) Not detected Coags 02/25/23 02/25/23 02/26/23 19:48 22:18 01:37 PT 13.90 INR 1.03 APTT 35.1 C-Reactive Protein 79.3 H 86.8 H ABG 02/26/23 04:30 Specimen Type Arterial Sample Site Brachial, right ABG pH 7.37 ABG pCO2 46.0 H ABG pO2 135.0 H ABG HCO3 26.4 H ABG Base Excess 0.6 O2 Delivery Device Nrb O2 Liters/Min 15.0 Microbiology 02/25/23 22:16 Blood Culture - Preliminary Blood NEGATIVE TO DATE 02/25/23 22:18 Blood Culture - Preliminary Blood NEGATIVE TO DATE Cardiac Studies: Echocardiogram 07/12/22
[2023-02-27] MEDS: sodium chloride 0.9% 1,000 ML 30 ML IV (07:13)
[2023-02-27] MEDS: lidocaine 1% INJ 10 mL (per mL) XX (07:31)
[2023-02-27 07:47] LABS: Folate Level > 20.0 ng/mL (4.5-32.2)
--- NOTE | 2023-02-27 08:26 | XR_ITS ---
WS: [id number] PORTABLE CHEST HISTORY: post bronchoscopy COMPARISON: Study earlier the same day at 6:17 AM and 02/26/2023. Persistent RIGHT pneumothorax. Pneumothorax extends subpulmonic. No midline shift. No interval signif icant improvement since 02/26/2023. Focal opacification at the RIGHT lung base. No effusion. Cardiac size: Normal. Mediastinum/Aorta: No midline shift. No osseous abnormality seen. XR/XR chest 1V portable [id number] IMPRESSION: 1. Persistent small to moderate RIGHT pneumothorax with subpulmonic extension . 2. Focal consolidation at the RIGHT lung base. Most consistent with atelectasi s.
[2023-02-27 08:41] LABS: Apprearance, Bronch Wash Cloudy (CLEAR); Color, Bronc Wash Pale Yellow; Cyto Order Verification Order Verified
[2023-02-27 08:42] LABS: Bronch Source Right Middle Lobe
--- NOTE | 2023-02-27 08:58 | P.OP_ITS ---
Operative Report Date of procedure: February 27, 2023 Pre-op diagnosis: Right middle lobe and lower lobe collapse due to endobronchial obstruction possibly due to mucous plugging Post-op diagnosis: Mucous plugging of airways causing right middle lobe and lower lobe collapse Procedure done: [id number] Dx Bronchoscope w/Washings or airway inspection [id number] Dx Bronchoscope w/BAL [id number] Bronchoscopy w/ therapeutic aspiration of the tracheobronchial tree (clearance of airway secretions, removal of mucus plugs) Specimens removed/disposition: Thick mucous plugs from bronchus intermedius, right middle lobe and right lower lobe Surgeon: Edson Blas MD, [facility] Brief History: Gustavo Hernandez is a 53-year-old male with paraplegia since having cervical spine injury several years ago and bullous emphysema-admitted for basilar pneumothorax to ICU for observation. Imaging showed significant loculated basilar pneumothorax with complete collapse of right middle lobe and lower lobe with obvious filling defects in the bronchi. Patient reported being on room air at home but since admission is requiring supplemental oxygen up to 5 L Patient reported difficult clearing of secretions and he hits hard on his chest to clear secretions sometimes. Today he is scheduled for bronchoscopic evaluation of airways and possible aspiration of mucous plugs for therapeutic benefit. Procedure: Procedure : [id number] Dx Bronchoscope w/Washings or airway inspection [id number] Dx Bronchoscope w/BAL [id number] Bronchoscopy w/ therapeutic aspiration of the tracheobronchial tree (clearance of airway secretions, removal of mucus plugs) Pre-Operative Diagnosis: Mucous plugging of airways Post-Operative Diagnosis: Same Indication: Collapse of right middle and lower lobe with filling defects in the bronchi Consent: Consents were obtained from patient and placed in the chart Pre-procedure Evaluation: Patient was evaluated clinically and ancillary testing reviewed. The risk of having active MTB infection is very low in my clinical judgement. Time out: Performed by the procedure team and nursing staff. Vent support maintained on Fio2 100. Anesthesia: As per anesthesia team. Patient is intubated with laryngeal mask airway (LMA) initially but patient has large tongue and it was difficult to ventilate him and so LMA was removed and he was intubated with 8.0 ET tube. Local anesthesia: The xavier in the right and left mainstem bronchi were anesthetized with 1% lidocaine, 6 mL. Summary of Significant Findings: -Bronchoscope passed through ET tube used for initial inspection (64063) and airway clearance. The scope was advanced through the ET tube. The lower trachea mucosa appeared normal, no endotracheal lesion was seen. The xavier was sharp. There was a mucous plug blocking right mainstem bronchus which was suctioned right away (25025) The xavier, the right and left mainstem bronchi are anesthetized with 1% lidocaine. In a systematic manner bilateral bronchial tree was then examined. The bronchoscope was advanced into the left mainstem bronchus. The mucosa appeared normal with no endobronchial lesions. The left upper lobe, lingula and left lower lobe bronchi were examined up to the third subsegmental level and no abnormalities were identified. Mucosa appeared normal with no endobronchial lesion, active bleeding or mucous plug. There were some clear secretions in lower lobe-which were suctioned right away (92577) The bronchoscope was then introduced into the right mainstem bronchus. There was a big mucous plug blocking bronchus intermedius which was suctioned right away (60950). The scope was advanced through right upper lobe segments and no endobronchial lesion noted. The scope was pulled back into bronchus intermedius and noted thick mucus plugs completely occluding right middle lobe and right lower lobe segments. All the secretions were thoroughly aspirated (40890). The mucosa appeared appeared edematous with no obvious endobronchial lesions or active bleeding. After making sure all the secretions were aspirated to the best possible visualization of airways-bronchoscope was wedged at the entrance of medial segment of right middle lobe-60 cc fluid was instilled and about 25 cc bronchioloalveolar lavage was aspirated ([id number]). The fluid was mixed with mucous plugs which was placed in a specimen cup and sent for further studies. Estimated Blood Loss: None Specimens: Bronchoalveolar lavage (85657) from right middle lobe sent for cultures, fluid analysis, cytology Complications:None; patient tolerated the procedure well. Disposition: Patient was transferred to ICU. Surgeon: Edson Blas MD, [facility] Pulmonary critical Care Medicine [facility] Related Problem List Diagnoses (1) Mucus plugging of bronchi:
[2023-02-27] MEDS: buPROPion SR (12 HR) 150 mg Tablet PO ×2 (09:25→17:37)
[2023-02-27] MEDS: gabapentin 300 mg Capsule 600 MG PO ×3 (09:25→20:34)
[2023-02-27] MEDS: amitriptyline 25 mg Tablet 12.5 MG PO ×2 (09:26→17:36)
[2023-02-27] MEDS: cefTRIAXone 1,000 MG in sodium chloride 0.9% (plus) 50 ML 100 MG IV (09:26)
[2023-02-27 09:34] LABS: Glucose Point of Care 237 mg/dL (70-110)
[2023-02-27] MEDS: insulin lispro 100 unit/1 mL SUBCUT ×4 (09:43→21:04)
[2023-02-27] MEDS: baclofen 10 mg Tablet 40 MG PO (09:47)
[2023-02-27] MEDS: PARoxetine 20 mg Tablet PO (09:47)
[2023-02-27] MEDS: HYDROcodone-acetaminophen 5-325 mg Tablet 1 TAB PO (09:50)
[2023-02-27] MEDS: ipratropium-albuterol 3 mL Neb INHALATION ×3 (11:39→20:38)
[2023-02-27 12:09] LABS: PATH Referral Yes; Total Cells Counted Bronch 200
[2023-02-27 12:55] LABS: Glucose Point of Care 259 mg/dL (70-110)
--- NOTE | 2023-02-27 13:02 | ANE.PACU2 ---
Inpatient post-anesthesia follow up: Airway intact: Yes Vital signs: Temperature 98.0 F Pulse Rate 72 Respiratory Rate 16 Blood Pressure 108/82 Pulse Oximetry 96 Oxygen Delivery Me thod Heated High Flow Oxygen Flow Rate 6 Fraction of Inspir ed Oxygen 15 Hydration adequate: Yes Nausea and vomiting: No Pain level: 1 Mental status: Baseline
[2023-02-27] MEDS: oxyCODONE-APAP 5-325 mg Tablet 1 TAB PO (13:18)
--- NOTE | 2023-02-27 13:25 | P.PN_ITS ---
Subjective Subjective: Clinically unchanged Underwent bronchoscopy today morning-there is significant thick mucus plugging blocking bronchus intermedius, right middle lobe segments and right lower lobe segments. Which were all suctioned right away. There was mucosal edema in lower lobe segments but there was no obvious endobronchial lesion. Fluid analysis was neutrophil predominant. Cultures and cytology are pending. This patient has a definitely difficulty clearing his secretions. We will continue manual chest physiotherapy/Mucomyst and hypertonic saline nebulization Postprocedure chest x-ray still showing persistent right lower lobe pneumothorax which did not improve. Patient is requiring 5 to 6 L nasal cannula-not in respiratory distress We will advance his diet Medications: Reviewed: Yes Vitals/I&O/Wt Last Vital Signs Temp 98.0 F 02/27/23 04:00 Pulse 72 02/27/23 11:40 Resp 20 H 02/27/23 13:18 BP 108/82 02/27/23 04:00 Pulse Ox 94 02/27/23 13:18 O2 Del Method Heated High Flow 02/27/23 11:40 O2 Flow Rate 6 02/27/23 11:40 FiO2 15 02/26/23 16:00 02/26/23 02/27/23 02/27/23 22:59 06:59 14:59 Intake Total 360 / 410 0 / 410 500 / 500 Output Total 400 / 1700 Balance 360 / -890 -400 / -1290 500 / 500 Weight last 48 hrs Weight 202 lb Weight 202 lb 13.204 oz Weight 210 lb Physical Exam Narrative: General: alert, NAD HEENT: conj clear, EOMI, PERRL, mmm, Neck: supple, no meningismus Heme: no cervical LAP Respiratory: Inspection: No visible deformity of the chest wall Palpation: Trachea is mildly deviated to the right, bilateral symmetric expansi on Percussion: Bilateral tympanic percussion note both anterior and posteriorly Auscultation: Reduced breath sounds on right lower lung zone Cardiovascular: rrr, nl s1s2, no mrg Abdomen: soft, nt, nd, no r/g, bs+ Extremities: pulses +, no edema, no c/c, bilateral lower extremity wasting : no CVA tenderness Skin: intact, no rash MSK: no back or neck pain Neurologic: grossly intact Data 02/27/23 03:56 02/27/23 03:56 Other Labs: Radiology Impressions Chest CTA 02/25/23 20:36 IMPRESSION: 1. Increased large right pneumothorax. 2. Collapse of the right middle and lower lobes with filling defects in the bronchi. Follow-up with bronchoscopy recommended. 3. Multiple new right upper lobe nodules, the largest measuring 1.9 cm. For patients at low risk (minimal or absent history of smoking and of other known risk factors), recommend CT Chest at 3-6 months, then consider CT Chest at 18-24 months. For patients at high risk (history of smoking or of other known risk factors), recommend CT Chest at 3-6 months, then CT Chest at 18-24 months. (Reference: Robb) References: Robb Wynn, et al. Guidelines for Management of Incidental Pulmonary Nodules Detected on CT Images: From the Fleischner Society 2017. Radiology. 2017;284(1):228-243. ADDENDUM: 02/26/23 0009 THIS REPORT CONTAINS FINDINGS THAT MAY BE CRITICAL TO PATIENT CARE. The findings were verbally communicated via telephone conference with Dr. Ontiveros at 12:07 AM CDT on 02/26/2023. The findings were acknowledged and understood. Chest X-Ray 02/27/23 14:00 IMPRESSION: 1. Previously visualized right pneumothorax appears unchanged 2 comparison dated 02/27/2023 at 7:38 a.m. 2. Right lower lobe atelectasis. 3. Minimal opacity at the left lung base may reflect atelectasis or pneumonitis. Laboratory Results WBC 8.0 10^3/uL (4.0-10.0) 02/27/23 03:56 RBC 5.17 10^6/uL (4.1-5.3) 02/27/23 03:56 Hgb 12.0 g/dL (11.7-16.6) 02/27/23 03:56 Hct 40.9 % (42.0-52.0) L 02/27/23 03:56 MCV 79.1 fl (80-94) L 02/27/23 03:56 MCH 23.2 pg (28.0-34.0) L 02/27/23 03:56 MCHC 29.3 g/dL (30.0-36.0) L 02/27/23 03:56 RDW 16.1 % (12.1-15.1) H 02/27/23 03:56 Plt Count 435 10^3/cmm (130-400) H 02/27/23 03:56 MPV 9.2 fL (7.4-10.4) 02/27/23 03:56 Neut % (Auto) 60.7 % 02/27/23 03:56 Lymph % (Auto) 21.8 % 02/27/23 03:56 [place] % (Auto) 11.1 % 02/27/23 03:56 Eos % (Auto) 5.0 % 02/27/23 03:56 Baso % (Auto) 1.1 % 02/27/23 03:56 Neut # (Auto) 4.83 10^3/uL (1.8-7.7) 02/27/23 03:56 Lymph # (Auto) 1.7 10^3/uL (0.8-4.8) 02/27/23 03:56 [place] # (Auto) 0.9 10^3/uL (0.2-0.9) 02/27/23 03:56 Eos # (Auto) 0.4 10^3/uL (0.0-0.8) 02/27/23 03:56 Baso # (Auto) 0.1 10^3/uL (0.0-0.1) 02/27/23 03:56 Nucleated RBC % (auto) 0 % 02/27/23 03:56 Nucleated RBCs # 0.0 /100WBC 02/27/23 03:56 PT 13.90 SECONDS (12.1-14.9) 02/25/23 19:48 INR 1.03 (0.8-1.2) 02/25/23 19:48 APTT 35.1 SECONDS (23.9-36.7) 02/25/23 19:48 Specimen Type Arterial 02/26/23 04:30 Sample Site Brachial, right 02/26/23 04:30 ABG pH 7.37 (7.35-7.45) 02/26/23 04:30 ABG pCO2 46.0 mmHg (35-45) H 02/26/23 04:30 ABG pO2 135.0 mmHg (80.0-100.0) H 02/26/23 04:30 ABG HCO3 26.4 mmol/L (22-26) H 02/26/23 04:30 ABG Base Excess 0.6 mmol/L (-2.0-2.0) 02/26/23 04:30 Magno Test N/a 02/26/23 04:30 Hematocrit 37.6 % (42-52) L 02/26/23 04:30 O2 Delivery Device Nrb 02/26/23 04:30 O2 Liters/Min 15.0 % 02/26/23 04:30 Bariatric Surgeon ID Kt 02/26/23 04:30 Sodium 139 mmol/L (136-145) 02/27/23 03:56 Potassium 3.8 mmol/L (3.5-5.1) 02/27/23 03:56 Chloride 101 mmol/L (98-107) 02/27/23 03:56 Carbon Dioxide 26 mmol/L (22-29) 02/27/23 03:56 Anion Gap 15.8 (5-19) 02/27/23 03:56 BUN 13 mg/dL (6-20) 02/27/23 03:56 Creatinine 0.3 mg/dL (0.7-1.2) L 02/27/23 03:56 GFR Calculation 312.4 mL/min (90-130) H 02/27/23 03:56 Glucose 154 mg/dL (65-115) H 02/27/23 03:56 POC Glucose 283 mg/dL (70-110) H 02/27/23 20:56 Estimat Average Glucose 151 02/27/23 03:56 Hemoglobin A1c 6.9 % (4.0-6.0) H 02/27/23 03:56 Calculated Osmolality 291 mOsm/kg (285-295) 02/27/23 03:56 Calcium 8.8 mg/dL (8.5-10.5) 02/27/23 03:56 Phosphorus 4.8 mg/dL (2.5-4.5) H 02/27/23 03:56 Magnesium 1.8 mg/dL (1.7-2.3) 02/27/23 03:56 Total Bilirubin 0.2 mg/dL (0.15-1.2) 02/27/23 03:56 AST 24 U/L (0-40) 02/27/23 03:56 ALT 21 U/L (0-41) 02/27/23 03:56 Alkaline Phosphatase 84 U/L (40-130) 02/27/23 03:56 Troponin T Baseline 18 ng/L (0-15) H 02/25/23 19:48 Troponin T 120 Minute 18.41 ng/L (0-15) H 02/25/23 22:18 Delta Troponin T 0.41 ABS# (0-10) 02/25/23 22:18 Troponin T Hi Sens 6Hr 18.40 ng/L (0-15) H 02/26/23 01:37 Troponin T Hi Sens 6Hr Delta 0.40 ng/L (0-12) 02/26/23 01:37 C-Reactive Protein 86.8 mg/L (0.0-4.9) H 02/26/23 01:37 NT-Pro-B Natriuret Pep 136 pg/mL (0-125) H 02/26/23 01:37 Total Protein 7.6 g/dL (6.6-8.7) 02/27/23 03:56 Albumin 3.2 g/dL (3.5-5.2) L 02/27/23 03:56 Globulin 4.4 g/dL (1.3-4.6) 02/27/23 03:56 Triglycerides 106 mg/dL (0-150) 02/27/23 03:56 Cholesterol 96 mg/dL (0-200) 02/27/23 03:56 LDL Cholesterol, Calc 45 mg/dL (50-129) L 02/27/23 03:56 Total VLDL Cholesterol 21 mg/dL (0-30) 02/27/23 03:56 HDL Cholesterol 30 mg/dL (60-100) L 02/27/23 03:56 Cholesterol/HDL Ratio 3.20 mg/dL (1.0-5.00) 02/27/23 03:56 Vitamin B12 616 pg/mL (232-1245) 02/26/23 01:37 Folate > 20.0 ng/mL (4.5-32.2) 02/27/23 06:08 Procalcitonin 0.06 ng/mL (0-0.5) 02/26/23 01:37 Urine Color Yellow (Yellow) 02/25/23 01:38 Urine Appearance Slightly cloudy (CLEAR) A 02/25/23 01:38 Urine pH 5 (5-7) 02/25/23 01:38 Ur Specific [place] 1.015 (1.005-1.030) 02/25/23 01:38 Urine Protein Neg (Negative) 02/25/23 01:38 Urine Glucose (UA) 2+ (Normal) H 02/25/23 01:38 Urine Ketones Negative (Negative) 02/25/23 01:38 Urine Blood Trace (Negative) H 02/25/23 01:38 Urine Nitrate Positive (Negative) H 02/25/23 01:38 Urine Bilirubin Neg (Negative) 02/25/23 01:38 Urine Urobilinogen Neg mg/dL (Negative) 02/25/23 01:38 Ur Leukocyte Esterase 2+ (Negative) H 02/25/23 01:38 Urine RBC 5-10 /hpf (0-2) H 02/25/23 01:38 Urine WBC 15-25 /hpf (0-5) H 02/25/23 01:38 Ur Squamous Epith Cells None /hpf (0-5) 02/25/23 01:38 Calcium Oxalate Crystal 5-10 /hpf H 02/25/23 01:38 Amorphous Sediment Not Reportable 02/25/23 01:38 Urine Bacteria 2+ /hpf (NONE) H 02/25/23 01:38 Urine Yeast 3+ /hpf H 02/25/23 01:38 Nasal Influ A H1 2008 PCR Not detected (NOT DETECT) 02/25/23 22:21 Bronch Specimen Source Right middle lobe 02/27/23 07:40 Bronchial Fluid Color Pale yellow 02/27/23 07:40 Bronchial Fluid Appearance Cloudy (CLEAR) 02/27/23 07:40 Bronchial Fluid WBC 1480 /uL 02/27/23 07:40 Bronchial Fluid RBC 3 10^3/uL 02/27/23 07:40 Bronch Cells Counted 200 02/27/23 07:40 Bronchial Neutrophils 79.00 % (0.9-2.3) H 02/27/23 07:40 Bronchial Lymphocytes 5.00 % (10.71-12.91) L 02/27/23 07:40 Bronchial Macrophages 16.00 % (83.6-86.8) L 02/27/23 07:40 Bronchial Diff Comment Yes 02/27/23 07:40 Adenovirus (PCR) Not detected (NOT DETECT) 02/25/23 22:21 C. pneumoniae DNA (PCR) Not detected (NOT DETECT) 02/25/23 22:21 Coronavirus 229E (PCR) Not detected (NOT DETECT) 02/25/23 22:21 Human Metapneumovir PCR Not detected (NOT DETECT) 02/25/23 22:21 Influenza A (H1) PCR Not detected (NOT DETECT) 02/25/23 22:21 Influenza A (H3) PCR Not detected (NOT DETECT) 02/25/23 22:21 Influenza Type A (PCR) Not detected (NOT DETECT) 02/25/23 22:21 Influenza Type B (PCR) Not detected (NOT DETECT) 02/25/23 22:21 M. pneumoniae (PCR) Not detected (NOT DETECT) 02/25/23 22:21 Parainfluenza 1 (PCR) Not detected (NOT DETECT) 02/25/23 22:21 Parainfluenza 2 (PCR) Not detected (NOT DETECT) 02/25/23 22:21 Parainfluenza 3 (PCR) Not detected (NOT DETECT) 02/25/23 22:21 Parainfluenza 4 (PCR) Not detected (NOT DETECT) 02/25/23 22:21 RSV Type A (PCR) Not detected (NOT DETECT) 02/25/23 22:21 RSV Type B (PCR) Not detected (NOT DETECT) 02/25/23 22:21 Entero/Rhino (PCR) Not detected (NOT DETECT) 02/25/23 22:21 SARS-CoV-2 (PCR) Not detected (NOT DETECT) 02/25/23 22:21 Micro: Microbiology 02/25/23 01:38 Urine Culture - Preliminary Urine,Clean Catch 02/25/23 22:16 Blood Culture - Preliminary Blood NEGATIVE TO DATE 02/25/23 22:18 Blood Culture - Preliminary Blood NEGATIVE TO DATE A&P Assessment and plan (1) Mucus plugging of bronchi: (2) Emphysema of lung: (3) Lung nodules: (4) Atelectasis: (5) History of cardiac arrest: (6) Sacral wound: Currently on wound VAC Plan #Basilar pneumothorax-difficult to say with underlying bullous emphysema if it is secondary to ruptured bullae or with obvious debris in bronchus intermedius seen on CT leading to collapse of middle lobe and lower lobe causing pneumo ex vacuo. -Another interesting thing patient has significant apical bullous disease and upper lobe is adhered to apical pleural surface-so unlikely this pneumothorax will worsen -Underwent bronchoscopy today morning-there is significant thick mucus plugging blocking bronchus intermedius, right middle lobe segments and right lower lobe segments. Which were all suctioned right away. There was mucosal edema in lower lobe segments but there was no obvious endobronchial lesion. Fluid analysis was neutrophil predominant. Cultures and cytology are pending. -Apparently as per pathology advair concern for pneumocystis. Patient is not on any immunosuppression-clinically unlikely-we will send for beta D glucan, PCP PCR, LDH - This patient has difficulty clearing his secretions. We will continue manual chest physiotherapy/Mucomyst and hypertonic saline nebulization - Postprocedure chest x-ray still showing persistent right lower lobe pneumothorax which did not improve. We will give 24 [address] time and repeat CT chest - Patient is requiring 5 to 6 L nasal cannula-not in respiratory distress - We will advance his diet -Another possibility-patient may have had right lower lobe and middle lobe consolidation with pneumonia which have precipitated coughing episodes and resulted in pneumothorax-currently is covered with Rocephin #Bullous emphysema -Currently on Pulmicort, DuoNeb nebulization -Covered with antibiotics -We can discharge him with Trelegy 1 puff daily and albuterol as needed -He may need PFTs as outpatient #Right upper lobe nodule and several other suspicious nodules on chest CT -With smoking history-these lesions are suspicious for malignancy -We can obtain a PET/CT as outpatient -With the significant bullous emphysema surrounding these nodules-biopsies have high risk of causing pneumothorax will have ongoing discussion regarding his goals of care and decide on obtaining biopsies as outpatient Attestations Medical Necessity Statement*: Hypoxic respiratory failure with loculated pneumothorax in patient with underlying bullous emphysema Time Spent in Patient Care: Greater than 35 minutes (>than 50% of time spent in counselling and/or direct pt care on unit) . Critical Care Time: This patient has a high probability of? clinically significant, sudden or life threatening deterioration of the patient's (pulmonary) systems required my full, direct attention, the highest level of physician preparedness for urgent intervention and personal management.? I managed/supervised life or organ supporting interventions that required frequent physician assessment.? I devoted my full attention in the ICU to the direct care of this patient for the period of time indicated above.? Time I spent with family or surrogate(s) is included only if the patient was incapable of providing necessary information or participating in decision making.? This time includes the following services provided: Telemetry review Mechanical Ventilation Hemodynamic interpretation, assessment and management Review and interpretation of CXR Review and interpretation of lab values Review and interpretation of microbiologic data and culture results Review of medications and administration Review and interpretation of Nutrition requirements and management Discussion of management with other consultants and services Clinical update to family members [x] Data and vital sign review and interpretation [x] Patient assessment, examination and intervention [x] Documentation [x] Medication orders and management Time spent for teaching as well as performing procedures are billed separately and is not included in this note Coding Level of Care Code Critical Care >/= 30 minutes Diagnoses Mucus plugging of bronchi T17.500A Emphysema of lung J43.9 Lung nodules R91.8 Atelectasis J98.11 History of cardiac arrest Z86.74 Sacral wound S31.000A Time Spent (min) 56
--- NOTE | 2023-02-27 14:00 | XRR_ITS ---
PROCEDURE INFORMATION: Exam: XR Chest Exam date and time: 02/27/2023 12:38 PM Age: 53 years old Clinical indication: Condition or disease; Lung condition and disease; Pneumothorax; Additional info: Broncoscopy/pneumothorax followup TECHNIQUE: Imaging protocol: Radiologic exam of the chest. Views: 1 view. COMPARISON: CR XR chest 1V portable [id number] 02/27/2023 7:38 AM FINDINGS: Lungs: Minimal opacity at the left lung base may reflect atelectasis or pneumonitis. Right lower lobe atelectasis. Pleural spaces: No pleural effusion. Previously visualized right pneumothorax appears unchanged 2 comparison dated 02/27/2023 at 7:38 a.m. Heart/Mediastinum: No cardiomegaly. Bones/joints: Old healed rib fractures are seen on the left. XR/XR chest 1V portable [id number] IMPRESSION: 1. Previously visualized right pneumothorax appears unchanged 2 comparison dated 02/27/2023 at 7:38 a.m. 2. Right lower lobe atelectasis. 3. Minimal opacity at the left lung base may reflect atelectasis or pneumonitis.
[2023-02-27] MEDS: acetylcysteine 200 mg/mL MDV 10 mL 100 MG INHALATION ×2 (15:47→20:38)
[2023-02-27] MEDS: ferrous gluconate 324 mg Tablet PO (16:39)
[2023-02-27] MEDS: baclofen 10 mg Tablet 80 MG PO (16:40)
[2023-02-27 17:35] LABS: Glucose Point of Care 281 mg/dL (70-110)
--- NOTE | 2023-02-27 17:46 | PM.PN ---
Subjective Subjective: No acute events overnight. Patient has remained hemodynamically stable and afebrile. Continues to remain on 4 to 5 L oxygen supplementation. Underwent bronchoscopy today and mucous plug was removed. Vitals/I&O/Wt Last Vital Signs Temp 98.0 F 02/27/23 04:00 Pulse 71 02/27/23 15:49 Resp 16 02/27/23 15:45 BP 108/82 02/27/23 04:00 Pulse Ox 94 02/27/23 15:45 O2 Del Method High Flow Nasal Cannula 02/27/23 15:45 O2 Flow Rate 4 02/27/23 15:45 FiO2 15 02/26/23 16:00 02/27/23 02/27/23 02/27/23 06:59 14:59 22:59 Intake Total 0 / 410 500 / 500 50 / 550 Output Total 400 / 1700 600 / 600 Balance -400 / -1290 -100 / -100 50 / -50 Weight last 48 hrs Weight 91.626 kg Weight 92 kg Weight 95.254 kg Physical Exam Const: COMMON NORMALS: no acute distress and patient oriented x3 HENMT: COMMON NORMALS: normocephalic HEAD & SCALP: normocephalic Eye: COMMON NORMALS: Equal, round and reactive pupils present and EOMs intact bilaterally PUPIL: Yes Equal, round and reactive pupils present Neck/C-Spine: COMMON NORMALS: no JVD Resp: COMMON NORMALS: normal respiratory effort, No retractions, No use of accessory muscles and clear to auscultation bilaterally AUSCULTATION: clear to auscultation bilaterally OTHER: Decreased breath sounds over right lung base Cardio: COMMON NORMALS: no JVD, regular rate, regular rhythm, S1 normal heart sound present and S2 normal heart sound present RATE: regular rate RHYTHM: regular rhythm HEART SOUNDS: S1 normal heart sound present and S2 normal heart sound present GI: COMMON NORMALS: Normal to inspection, nondistended, normoactive bowel sounds present, Soft to palpation, non-tender and No hepatosplenomegaly present PALPATION: Yes Soft to palpation and Yes No hepatosplenomegaly present Extremity: COMMON NORMALS: no calf tenderness and no pedal edema Neuro: COMMON NORMALS: patient oriented x3, CN's II-XII intact bilaterally, moves all extremities and no focal motor deficits OTHER: Peripheral extremities, muscle wasting bilateral lower extremities Psych: COMMON NORMALS: mental status grossly normal Data 02/27/23 03:56 02/27/23 03:56 Micro: Microbiology 02/27/23 07:40 Gram Stain - Final Lung Right Middle Lobe Bronchial Washings Culture - Preliminary 02/25/23 01:38 Urine Culture - Preliminary Urine,Clean Catch 02/25/23 22:16 Blood Culture - Preliminary Blood NEGATIVE TO DATE 02/25/23 22:18 Blood Culture - Preliminary Blood NEGATIVE TO DATE A&P Assessment and plan (1) Acute respiratory failure with hypoxia: Insetting of pneumothorax along with emphysema. Pulmonary on board. Post bronchoscopy 02/27. Follow-up bronchoscopy cultures. As per pathology there is a concern for pneumocystis though clinically less likely. Hold off on treatment for now. Check beta D glucan. Discussed with pulmonology on board. Continue DuoNebs every 6 hour, budesonide twice daily, Mucomyst and Hypersal tonic saline. Aggressive pulmonary toilet with chest vest, incentive spirometer flutter valve when possible. Aspiration precaution. Appreciate pulmonary recommendations. (2) Pneumothorax on right: (3) Emphysema of lung: (4) UTI (urinary tract infection): Follow-up urine culture, blood culture. Continue with IV ceftriaxone. 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 Follow-up with Dr. Roy as an outpatient. Continue wound care as per outpatient therapy. (7) Encounter for management of wound VAC: (8) Incidental lung nodule: (9) Chronic incomplete quadriplegia: (10) Chronic indwelling Olivas catheter: (11) Diabetes: A1c 6.9. Continue with insulin sliding scale at low-dose protocol. Qualifiers: Diabetes mellitus complication detail: with other skin ulcer Diabetes mellitus complication status: with skin complications Diabetes mellitus long term care pharmacist insulin use: without long term care pharmacist use Diabetes mellitus type: type 2 Qualified Code(s): E11.622 - Type 2 diabetes mellitus with other skin ulcer (12) Hyperlipidemia: Qualifiers: Hyperlipidemia type: other hyperlipidemia Qualified Code(s): E78.49 - Other hyperlipidemia Plan Continue with chronic home psych medications. Full code. Carb consistent cardiac diet. Famotidine for PUD prophylaxis Heparin 5000 every 12 hourly for DVT prophylaxis. Transfer to [facility]. Attestations Medical Necessity Statement*: Requires further hospitalization for management of acute hypoxic respiratory failure in setting of pneumothorax of the right lung in setting of emphysema, mucous plugging Diagnoses Acute respiratory failure with hypoxia J96.01 Pneumothorax on right J93.9 Emphysema of lung J43.9 UTI (urinary tract infection) N39.0 Neurogenic bladder N31.9 Pressure ulcer of coccygeal region L89.159 Encounter for management of wound VAC Z46.89 Incidental lung nodule R91.1 Chronic incomplete quadriplegia G82.50 Chronic indwelling Olivas catheter Z96.0 Diabetes E11.622 Diabetes mellitus complication detail: with other skin ulcer Diabetes mellitus complication status: with skin complications Diabetes mellitus long term care pharmacist insulin use: without long term care pharmacist use Diabetes mellitus type: type 2 Hyperlipidemia E78.49 Hyperlipidemia type: other hyperlipidemia
[2023-02-27] MEDS: cholecalciferol (vitamin D3) 1,000 unit Tablet 25 UNIT PO (20:32)
[2023-02-27] MEDS: baclofen 10 mg Tablet 60 MG PO (20:33)
[2023-02-27] MEDS: atorvastatin 40 mg Tablet PO (20:33)
[2023-02-27] MEDS: budesonide 0.5 mg/2 mL Neb INHALATION (20:38)
[2023-02-27 21:02] LABS: Glucose Point of Care 283 mg/dL (70-110)
[2023-02-28] VITALS (19 sets, daily range): BP systolic 104–134; BP diastolic 72–80; PULSE 66–96; RESP 13–20; TEMP 36.6; O2SAT 87–98
[2023-02-28 00:33] LABS: Lactate Dehydrogenase 282 U/L (135-225)
[2023-02-28 04:51] LABS: Basophils # 0.1 10^3/uL (0.0-0.1); Basophils % 0.7 %; Eosinophils # 0.2 10^3/uL (0.0-0.8); Eosinophils % 2.6 %; Hematocrit 37.2 % (42.0-52.0); Hemoglobin 10.7 g/dL (11.7-16.6); Lymphocytes # 2.1 10^3/uL (0.8-4.8); Lymphocytes % 24.5 %; Mean Corpuscular HGB Conc 28.8 g/dL (30.0-36.0); Mean Corpuscular Volume 79.8 fl (80-94); Mean Platelet Volume 9.1 fL (7.4-10.4); Monocytes # 0.9 10^3/uL (0.2-0.9); Monocytes % 10.6 %; Neutrophils # 5.15 10^3/uL (1.8-7.7); Neutrophils % 61.2 %; Nucleated Red Blood Cells % 0 %; Platelet Count 448 10^3/cmm (130-400); Red Blood Count 4.66 10^6/uL (4.1-5.3); Red Cell Distribution Width 16.1 % (12.1-15.1); White Blood Count 8.4 10^3/uL (4.0-10.0)
[2023-02-28 05:19] LABS: Alanine Aminotransferase 20 U/L (0-41); Albumin Level 3.2 g/dL (3.5-5.2); Alkaline Phosphatase 74 U/L (40-130); Anion Gap 15.3 (5-19); Aspartate Amino Transferase 16 U/L (0-40); Blood Urea Nitrogen 13 mg/dL (6-20); Calcium 8.8 mg/dL (8.5-10.5); Carbon Dioxide 26 mmol/L (22-29); Chloride 104 mmol/L (98-107); Globulin 3.9 g/dL (1.3-4.6); Glomerular Filtration Rate 498.9 mL/min (90-130); Glucose 128 mg/dL (65-115); Osmolality Calculated 294 mOsm/kg (285-295); Phosphorus 3.7 mg/dL (2.5-4.5); Potassium 4.3 mmol/L (3.5-5.1); Sodium 141 mmol/L (136-145); Total Bilirubin 0.2 mg/dL (0.15-1.2); Total Protein 7.1 g/dL (6.6-8.7)
[2023-02-28] MEDS: clopidogrel 75 mg Tablet PO (05:38)
[2023-02-28] MEDS: aspirin 81 mg EC Tablet PO (05:38)
--- NOTE | 2023-02-28 08:17 | CTR_ITS ---
PROCEDURE INFORMATION: Exam: CT Chest Without Contrast; Diagnostic Exam date and time: 02/28/2023 9:57 AM Age: 53 years old Clinical indication: Other: Pneumothorax TECHNIQUE: Imaging protocol: Diagnostic computed tomography of the chest without contrast. Radiation optimization: All CT scans at this facility use at least one of these dose optimization techniques: automated exposure control; mA and/or kV adjustment per patient size (includes targeted exams where dose is matched to clinical indication); or iterative reconstruction. REPORTING DATA: Count of CT and Cardiac NM exams in prior 12 months: This patient has received 5 known CTs and 0 known cardiac nuclear medicine studies in the 12 months prior to the current study. COMPARISON: 1. CT angio chest PE protcl [id number] 02/25/2023 11:[address] angio chest PE protcl [id number] 07/13/2022 2:44 PM RADIATION DOSE METRICS: Total DLP (mGy-cm): 582.71 FINDINGS: Lungs: Moderate paraseptal emphysema in the apices, greater on right. Stable right apical subpleural scarring. Stable 9 mm noncalcified right upper lobe pulmonary nodule on series 5, image 19. There is stable complete atelectasis of the right middle and lower lobes. No consolidation in the right upper lobe. There is minimal focal subpleural opacity in the posterior left upper lobe which is new since 02/25/2023. There is subsegmental atelectasis in the left lower lobe. The trachea and central bronchi are normal in the left lung and right upper lobe. There is occlusion of the right bronchus intermedius. Pleural spaces: There is a small right pneumothorax which is significantly decreased since 02/25/2023. Heart: Heart size is normal. There is no pericardial effusion. Coronary arteries: There is moderate coronary artery calcification. Lymph nodes: There is no mediastinal or hilar lymphadenopathy. Vasculature: There is mild aortic atherosclerotic disease. The ascending aorta is mildly ectatic measuring 3.9 cm diameter. There is no jon aneurysm. The main pulmonary artery is dilated to 4.3 cm. Intraperitoneal space: Visible structures in the upper abdomen are unremarkable. Bones/joints: Bones are unremarkable. Soft tissues: The extrathoracic soft tissues are unremarkable. CT/CT chest [facility] [id number] IMPRESSION: 1. Decreased right pneumothorax since 02/25/2023. The pneumothorax occupies roughly 20-30% of the right hemithorax. 2. Persistent right bronchus intermedius occlusion and complete atelectasis of the right lower and middle lobes. Findings raise suspicion for endobronchial neoplasm. Consider bronchoscopy. 3. New focal opacity in the posterior left upper lobe since 02/25/2023. Atelectasis versus infection. 4. Dilated main pulmonary artery. Possible pulmonary hypertension. 5. 9 mm noncalcified right upper lobe pulmonary nodule.For both low risk and high risk patients, consider CT Chest at 3 months, PET/CT, or biopsy. (Reference: Robb) COMMENTS: In the absence of a history or active diagnosis of lung cancer, it is recommended that this patient with emphysema be evaluated for enrollment in a low dose CT lung cancer screening program. REFERENCES: Robb Wynn, et al. Guidelines for Management of Incidental Pulmonary Nodules Detected on CT Images: From the Fleischner Society 2017. Radiology. 2017;284(1):228-243.
[2023-02-28 08:36] LABS: Glucose Point of Care 144 mg/dL (70-110)
[2023-02-28] MEDS: gabapentin 300 mg Capsule 600 MG PO (08:37)
[2023-02-28] MEDS: baclofen 10 mg Tablet 40 MG PO (08:38)
[2023-02-28] MEDS: amitriptyline 25 mg Tablet 12.5 MG PO (08:39)
[2023-02-28] MEDS: buPROPion SR (12 HR) 150 mg Tablet PO (08:39)
[2023-02-28] MEDS: PARoxetine 20 mg Tablet PO (08:39)
[2023-02-28] MEDS: cefTRIAXone 1,000 MG in sodium chloride 0.9% (plus) 50 ML 100 MG IV (08:40)
[2023-02-28] MEDS: acetylcysteine 200 mg/mL MDV 10 mL 100 MG INHALATION (08:43)
[2023-02-28] MEDS: budesonide 0.5 mg/2 mL Neb INHALATION (08:43)
[2023-02-28] MEDS: ipratropium-albuterol 3 mL Neb INHALATION ×2 (08:43→12:05)
[2023-02-28] MEDS: HYDROcodone-acetaminophen 5-325 mg Tablet 1 TAB PO (09:48)
--- NOTE | 2023-02-28 10:42 | PC.NURSE ---
Patient transferred to room 273. Report given to Ashley BROOKE. CLothing, cellphone, cellphone internet cafe manager, electric wheelchair, and wound care supplies sent with patient.
--- NOTE | 2023-02-28 12:32 | PM.PN ---
Subjective Subjective: No overnight events Patient currently on 3 L supplemental oxygen Denied any complaints-wanted to go home Repeat CT chest without contrast today morning showed small right pneumothorax which was significantly decreased from 02/25/2023. There is still right bronchus intermedius occlusion-however bronchoscopy yesterday showed thick mucous plug with no endobronchial lesion-I suspect reaccumulation of mucous. He is stable respiratory sebastian to go home with outpatient antibiotics and tapering dose of steroids. I would recommend chest vest therapy 3 times a day, hypertonic saline and Mucomyst nebulization twice daily. I have encouraged patient to use incentive spirometry and stay in sitting position as much possible. Other labs and imaging reviewed and they appear stable Medications: Reviewed: Yes Vitals/I&O/Wt Last Vital Signs Temp 97.8 F 02/28/23 04:00 Pulse 79 02/28/23 12:17 Resp 20 H 02/28/23 12:00 BP 104/72 02/28/23 05:30 Pulse Ox 87 L 02/28/23 12:16 O2 Del Method Nasal Cannula 02/28/23 12:00 O2 Flow Rate 3 02/28/23 12:16 FiO2 15 02/26/23 16:00 02/27/23 02/28/23 02/28/23 22:59 06:59 14:59 Intake Total 500 / 1000 200 / 1200 Output Total 400 / 1000 700 / 1700 200 / 200 Balance 100 / 0 -500 / -500 -200 / -200 Physical Exam Narrative: General: alert, NAD HEENT: conj clear, EOMI, PERRL, mmm, Neck: supple, no meningismus Heme: no cervical LAP Respiratory: Inspection: No visible deformity of the chest wall Palpation: Trachea is mildly deviated to the right, bilateral symmetric expansion Percussion: Bilateral tympanic percussion note both anterior and posteriorly Auscultation: Reduced breath sounds on right lower lung zone Cardiovascular: rrr, nl s1s2, no mrg Abdomen: soft, nt, nd, no r/g, bs+ Extremities: pulses +, no edema, no c/c, bilateral lower extremity wasting : no CVA tenderness Skin: intact, no rash MSK: no back or neck pain Neurologic: grossly intact Data 02/28/23 03:50 02/28/23 03:50 Other Labs: Radiology Impressions Chest CTA 02/25/23 20:36 IMPRESSION: 1. Increased large right pneumothorax. 2. Collapse of the right middle and lower lobes with filling defects in the bronchi. Follow-up with bronchoscopy recommended. 3. Multiple new right upper lobe nodules, the largest measuring 1.9 cm. For patients at low risk (minimal or absent history of smoking and of other known risk factors), recommend CT Chest at 3-6 months, then consider CT Chest at 18-24 months. For patients at high risk (history of smoking or of other known risk factors), recommend CT Chest at 3-6 months, then CT Chest at 18-24 months. (Reference: Robb) References: Robb Wynn et al. Guidelines for Management of Incidental Pulmonary Nodules Detected on CT Images: From the Fleischner Society 2017. Radiology. 2017;284(1):228-243. ADDENDUM: 02/26/23 0009 THIS REPORT CONTAINS FINDINGS THAT MAY BE CRITICAL TO PATIENT CARE. The findings were verbally communicated via telephone conference with Dr. Ontiveros at 12:07 AM CDT on 02/26/2023. The findings were acknowledged and understood. Chest X-Ray 02/27/23 14:00 IMPRESSION: 1. Previously visualized right pneumothorax appears unchanged 2 comparison dated 02/27/2023 at 7:38 a.m. 2. Right lower lobe atelectasis. 3. Minimal opacity at the left lung base may reflect atelectasis or pneumonitis. Chest CT 02/28/23 08:17 IMPRESSION: 1. Decreased right pneumothorax since 02/25/2023. The pneumothorax occupies roughly 20-30% of the right hemithorax. 2. Persistent right bronchus intermedius occlusion and complete atelectasis of the right lower and middle lobes. Findings raise suspicion for endobronchial neoplasm. Consider bronchoscopy. 3. New focal opacity in the posterior left upper lobe since 02/25/2023. Atelectasis versus infection. 4. Dilated main pulmonary artery. Possible pulmonary hypertension. 5. 9 mm noncalcified right upper lobe pulmonary nodule.For both low risk and high risk patients, consider CT Chest at 3 months, PET/CT, or biopsy. (Reference: Robb) COMMENTS: In the absence of a history or active diagnosis of lung cancer, it is recommended that this patient with emphysema be evaluated for enrollment in a low dose CT lung cancer screening program. REFERENCES: Robb Wynn et al. Guidelines for Management of Incidental Pulmonary Nodules Detected on CT Images: From the Fleischner Society 2017. Radiology. 2017;284(1):228-243. Laboratory Results WBC 8.4 10^3/uL (4.0-10.0) 02/28/23 03:50 RBC 4.66 10^6/uL (4.1-5.3) 02/28/23 03:50 Hgb 10.7 g/dL (11.7-16.6) L 02/28/23 03:50 Hct 37.2 % (42.0-52.0) L 02/28/23 03:50 MCV 79.8 fl (80-94) L 02/28/23 03:50 MCH 23.0 pg (28.0-34.0) L 02/28/23 03:50 MCHC 28.8 g/dL (30.0-36.0) L 02/28/23 03:50 RDW 16.1 % (12.1-15.1) H 02/28/23 03:50 Plt Count 448 10^3/cmm (130-400) H 02/28/23 03:50 MPV 9.1 fL (7.4-10.4) 02/28/23 03:50 Neut % (Auto) 61.2 % 02/28/23 03:50 Lymph % (Auto) 24.5 % 02/28/23 03:50 [place] % (Auto) 10.6 % 02/28/23 03:50 Eos % (Auto) 2.6 % 02/28/23 03:50 Baso % (Auto) 0.7 % 02/28/23 03:50 Neut # (Auto) 5.15 10^3/uL (1.8-7.7) 02/28/23 03:50 Lymph # (Auto) 2.1 10^3/uL (0.8-4.8) 02/28/23 03:50 [place] # (Auto) 0.9 10^3/uL (0.2-0.9) 02/28/23 03:50 Eos # (Auto) 0.2 10^3/uL (0.0-0.8) 02/28/23 03:50 Baso # (Auto) 0.1 10^3/uL (0.0-0.1) 02/28/23 03:50 Nucleated RBC % (auto) 0 % 02/28/23 03:50 Nucleated RBCs # 0.0 /100WBC 02/28/23 03:50 PT 13.90 SECONDS (12.1-14.9) 02/25/23 19:48 INR 1.03 (0.8-1.2) 02/25/23 19:48 APTT 35.1 SECONDS (23.9-36.7) 02/25/23 19:48 Specimen Type Arterial 02/26/23 04:30 Sample Site Brachial, right 02/26/23 04:30 ABG pH 7.37 (7.35-7.45) 02/26/23 04:30 ABG pCO2 46.0 mmHg (35-45) H 02/26/23 04:30 ABG pO2 135.0 mmHg (80.0-100.0) H 02/26/23 04:30 ABG HCO3 26.4 mmol/L (22-26) H 02/26/23 04:30 ABG Base Excess 0.6 mmol/L (-2.0-2.0) 02/26/23 04:30 Magno Test N/a 02/26/23 04:30 Hematocrit 37.6 % (42-52) L 02/26/23 04:30 O2 Delivery Device Nrb 02/26/23 04:30 O2 Liters/Min 15.0 % 02/26/23 04:30 Chief Crew Scheduler ID Kt 02/26/23 04:30 Sodium 141 mmol/L (136-145) 02/28/23 03:50 Potassium 4.3 mmol/L (3.5-5.1) 02/28/23 03:50 Chloride 104 mmol/L (98-107) 02/28/23 03:50 Carbon Dioxide 26 mmol/L (22-29) 02/28/23 03:50 Anion Gap 15.3 (5-19) 02/28/23 03:50 BUN 13 mg/dL (6-20) 02/28/23 03:50 Creatinine 0.2 mg/dL (0.7-1.2) L 02/28/23 03:50 GFR Calculation 498.9 mL/min (90-130) H 02/28/23 03:50 Glucose 128 mg/dL (65-115) H 02/28/23 03:50 POC Glucose 169 mg/dL (70-110) H 02/28/23 12:41 Estimat Average Glucose 151 02/27/23 03:56 Hemoglobin A1c 6.9 % (4.0-6.0) H 02/27/23 03:56 Calculated Osmolality 294 mOsm/kg (285-295) 02/28/23 03:50 Calcium 8.8 mg/dL (8.5-10.5) 02/28/23 03:50 Phosphorus 3.7 mg/dL (2.5-4.5) 02/28/23 03:50 Magnesium 2.0 mg/dL (1.7-2.3) 02/28/23 03:50 Total Bilirubin 0.2 mg/dL (0.15-1.2) 02/28/23 03:50 AST 16 U/L (0-40) 02/28/23 03:50 ALT 20 U/L (0-41) 02/28/23 03:50 Alkaline Phosphatase 74 U/L (40-130) 02/28/23 03:50 Lactate Dehydrogenase 282 U/L (135-225) H 02/27/23 06:08 Troponin T Baseline 18 ng/L (0-15) H 02/25/23 19:48 Troponin T 120 Minute 18.41 ng/L (0-15) H 02/25/23 22:18 Delta Troponin T 0.41 ABS# (0-10) 02/25/23 22:18 Troponin T Hi Sens 6Hr 18.40 ng/L (0-15) H 02/26/23 01:37 Troponin T Hi Sens 6Hr Delta 0.40 ng/L (0-12) 02/26/23 01:37 C-Reactive Protein 86.8 mg/L (0.0-4.9) H 02/26/23 01:37 NT-Pro-B Natriuret Pep 136 pg/mL (0-125) H 02/26/23 01:37 Total Protein 7.1 g/dL (6.6-8.7) 02/28/23 03:50 Albumin 3.2 g/dL (3.5-5.2) L 02/28/23 03:50 Globulin 3.9 g/dL (1.3-4.6) 02/28/23 03:50 Triglycerides 106 mg/dL (0-150) 02/27/23 03:56 Cholesterol 96 mg/dL (0-200) 02/27/23 03:56 LDL Cholesterol, Calc 45 mg/dL (50-129) L 02/27/23 03:56 Total VLDL Cholesterol 21 mg/dL (0-30) 02/27/23 03:56 HDL Cholesterol 30 mg/dL (60-100) L 02/27/23 03:56 Cholesterol/HDL Ratio 3.20 mg/dL (1.0-5.00) 02/27/23 03:56 Vitamin B12 616 pg/mL (232-1245) 02/26/23 01:37 Folate > 20.0 ng/mL (4.5-32.2) 02/27/23 06:08 Procalcitonin 0.06 ng/mL (0-0.5) 02/26/23 01:37 Urine Color Yellow (Yellow) 02/25/23 01:38 Urine Appearance Slightly cloudy (CLEAR) A 02/25/23 01:38 Urine pH 5 (5-7) 02/25/23 01:38 Ur Specific Alexis 1.015 (1.005-1.030) 02/25/23 01:38 Urine Protein Neg (Negative) 02/25/23 01:38 Urine Glucose (UA) 2+ (Normal) H 02/25/23 01:38 Urine Ketones Negative (Negative) 02/25/23 01:38 Urine Blood Trace (Negative) H 02/25/23 01:38 Urine Nitrate Positive (Negative) H 02/25/23 01:38 Urine Bilirubin Neg (Negative) 02/25/23 01:38 Urine Urobilinogen Neg mg/dL (Negative) 02/25/23 01:38 Ur Leukocyte Esterase 2+ (Negative) H 02/25/23 01:38 Urine RBC 5-10 /hpf (0-2) H 02/25/23 01:38 Urine WBC 15-25 /hpf (0-5) H 02/25/23 01:38 Ur Squamous Epith Cells None /hpf (0-5) 02/25/23 01:38 Calcium Oxalate Crystal 5-10 /hpf H 02/25/23 01:38 Amorphous Sediment Not Reportable 02/25/23 01:38 Urine Bacteria 2+ /hpf (NONE) H 02/25/23 01:38 Urine Yeast 3+ /hpf H 02/25/23 01:38 Nasal Influ A H1 2009 PCR Not detected (NOT DETECT) 02/25/23 22:21 Bronch Specimen Source Right middle lobe 02/27/23 07:40 Bronchial Fluid Color Pale yellow 02/27/23 07:40 Bronchial Fluid Appearance Cloudy (CLEAR) 02/27/23 07:40 Bronchial Fluid WBC 1480 /uL 02/27/23 07:40 Bronchial Fluid RBC 3 10^3/uL 02/27/23 07:40 Bronch Cells Counted 200 02/27/23 07:40 Bronchial Neutrophils 79.00 % (0.9-2.3) H 02/27/23 07:40 Bronchial Lymphocytes 5.00 % (10.71-12.91) L 02/27/23 07:40 Bronchial Macrophages 16.00 % (83.6-86.8) L 02/27/23 07:40 Bronchial Diff Comment Yes 02/27/23 07:40 Adenovirus (PCR) Not detected (NOT DETECT) 02/25/23 22:21 C. pneumoniae DNA (PCR) Not detected (NOT DETECT) 02/25/23 22:21 Coronavirus 229E (PCR) Not detected (NOT DETECT) 02/25/23 22:21 Human Metapneumovir PCR Not detected (NOT DETECT) 02/25/23 22:21 Influenza A (H1) PCR Not detected (NOT DETECT) 02/25/23 22:21 Influenza A (H3) PCR Not detected (NOT DETECT) 02/25/23 22:21 Influenza Type A (PCR) Not detected (NOT DETECT) 02/25/23 22:21 Influenza Type B (PCR) Not detected (NOT DETECT) 02/25/23 22:21 M. pneumoniae (PCR) Not detected (NOT DETECT) 02/25/23 22:21 Parainfluenza 1 (PCR) Not detected (NOT DETECT) 02/25/23 22:21 Parainfluenza 2 (PCR) Not detected (NOT DETECT) 02/25/23 22:21 Parainfluenza 3 (PCR) Not detected (NOT DETECT) 02/25/23 22:21 Parainfluenza 4 (PCR) Not detected (NOT DETECT) 02/25/23 22:21 RSV Type A (PCR) Not detected (NOT DETECT) 02/25/23 22:21 RSV Type B (PCR) Not detected (NOT DETECT) 02/25/23 22:21 Entero/Rhino (PCR) Not detected (NOT DETECT) 02/25/23 22:21 SARS-CoV-2 (PCR) Not detected (NOT DETECT) 02/25/23 22:21 Micro: Microbiology 02/25/23 01:38 Urine Culture - Final Urine,Clean Catch 02/27/23 07:40 Gram Stain - Final Lung Right Middle Lobe Bronchial Washings Culture - Preliminary A&P Assessment and plan (1) Mucus plugging of bronchi: (2) Emphysema of lung: (3) Lung nodules: (4) Atelectasis: (5) History of cardiac arrest: (6) Sacral wound: Currently on wound VAC Plan #Basilar pneumothorax-difficult to say with underlying paraseptal emphysema if it is secondary to ruptured bullae or with obvious debris in bronchus intermedius seen on CT leading to collapse of middle lobe and lower lobe causing pneumo ex vacuo. -Another interesting thing patient has significant apical paraseptal emphysema and upper lobe is adhered to apical pleural surface-so unlikely this pneumothorax will worsen -Underwent bronchoscopy 02/28/2023-there is significant thick mucus plugging blocking bronchus intermedius, right middle lobe segments and right lower lobe segments which were all suctioned right away. There was mucosal edema in lower lobe segments but there was no obvious endobronchial lesion. Fluid analysis was neutrophil predominant. Cultures and cytology are pending. Repeat CT chest without contrast today morning showed small right pneumothorax which was significantly decreased from 02/25/2023. There is still right bronchus intermedius occlusion-however bronchoscopy yesterday showed thick mucous plug with no endobronchial lesion-I suspect reaccumulation of mucous. This patient has difficulty clearing his secretions. I would recommend chest vest therapy 3 times a day, hypertonic saline and Mucomyst nebulization twice daily. I have encouraged patient to use incentive spirometry and stay in sitting position as much possible. -He is stable respiratory sebastian to go home with outpatient antibiotics and tapering dose of steroids. -Apparently as per lab there is a concern for pneumocystis. Patient is not on any immunosuppression-clinically unlikely-sent for for beta D glucan, PCP PCR, LDH - Patient is requiring 2-3 L nasal cannula-not in respiratory distress - We will advance his diet -Another possibility-patient may have had right lower lobe and middle lobe consolidation with pneumonia which have precipitated coughing episodes and resulted in pneumothorax-currently is covered with Rocephin #Paraseptal emphysema -Currently on Pulmicort, DuoNeb nebulization -Covered with antibiotics -We can discharge him with Trelegy 1 puff daily and albuterol as needed -He may need PFTs as outpatient #Right upper lobe nodule and several other suspicious nodules on chest CT -With smoking history-these lesions are suspicious for malignancy -We can obtain a PET/CT as outpatient -With the significant background emphysema surrounding these nodules-biopsies have high risk of causing pneumothorax however we decided plan of action after obtaining PET/CT as outpatient Attestations Medical Necessity Statement*: From pulmonary standpoint patient is stable Time Spent in Patient Care: Greater than 35 minutes (>than 50% of time spent in counselling and/or direct pt care on unit). Critical Care Time: This time includes the following services provided: Telemetry review Mechanical Ventilation Hemodynamic interpretation, assessment and management Review and interpretation of CXR Review and interpretation of lab values Review and interpretation of microbiologic data and culture results Review of medications and administration Review and interpretation of Nutrition requirements and management Discussion of management with other consultants and services Clinical update to family members [x] Data and vital sign review and interpretation [x] Patient assessment, examination and intervention [x] Documentation [x] Medication orders and management Time spent for teaching as well as performing procedures are billed separately and is not included in this note Coding Level of Care Code 28160 Diagnoses Mucus plugging of bronchi T17.500A Emphysema of lung J43.9 Lung nodules R91.8 Atelectasis J98.11 History of cardiac arrest Z86.74 Sacral wound S31.000A Time Spent (min) 39
[2023-02-28 12:46] LABS: Glucose Point of Care 169 mg/dL (70-110)
--- NOTE | 2023-02-28 13:09 | P.DS_ITS ---
Discharge Providers Date of Admission: 02/25/23 21:57 Date of Discharge: February 28, 2023 Attending Provider at Admission: Antonio Cooley MD Attending Provider at Discharge: Augustus Torres MD Consults: Pulmonology: Dr. Blas Primary Care Provider: Emelia Martínez Diagnoses at Discharge Discharge Diagnosis (1) Mucus plugging of bronchi: Status: Acute (2) Emphysema of lung: Status: Acute (3) Lung nodules: Status: Acute (4) Atelectasis: Status: Acute (5) History of cardiac arrest: Status: Acute Permanent problem details: 2017 post heart attack, prolonged ventilation, trach, peg. (6) Sacral wound: Status: Acute Reason for Visit Reason for Visit: Possible collapsed lung Hospital Course Hospital Course David Chen is a 53 year old male with a past medical history of CAD, chronic incomplete quadriplegia, chronic indwelling Olivas catheter, noninsulin-dependent type 2 diabetes mellitus, history of cardiac arrest, history of difficult intubation, hyperlipidemia hypertension, history of neurogenic bladder with indwelling catheter, recurrent UTIs, sleep apnea, recent hospitalization for multiple pressure ulcers, ischial osteomyelitis, requiring IV antibiotic treatments, multiple debridements, currently following up with wound care, bound to motorized wheelchair, presented to [facility] yesterday night due to shortness of breath, productive cough. Patient reports worsening shortness of breath for last 1 week associated with productive cough.? Denies chest pains.? Has history of smoking but reports he quit.? Reports chest x-ray at PCP office was normal but he continued to have significant episodes of cough, with 1 episode of hemoptysis, after which he felt fine.? His PCP called to inform that chest x-ray had pneumothorax,, so he came to [facility] for evaluation Initially in the emergency room he was placed on 15 L nonrebreather and x-ray which showed a moderate right-sided pneumothorax, basilar, ER provider was hesitant about placing chest tube versus pigtail catheter, after discussion with patient's family, ER provider and family decided to proceed with medical management. Decision was made by ER provider and family to not place an pigtail catheter or chest tube, given location of pneumothorax.? Patient had a CT chest which showed increased large right pneumothorax, collapse of right middle and lower lobe with filling defects and bronchi, multiple new right upper lobe nodules largest measuring 1.9 cm. Pulmonary were consulted for large loculated pneumothorax and significant bullous emphysema, with collapsed right middle and lower lobes. Today patient was seen in ICU-in the morning he was on 10 L and by evening he was down to 3 L.? He was able to cough out sputum.? Serial chest x-ray did not show any worsening of basilar pneumothorax and showed improvement as well. Patient denied any complaints, no chest pain, no palpitations, tells that he has difficulty coughing, due to diaphragmatic contracture problems, with his quadriplegia and spinal cord injury. Patient was started on aggressive pulmonary toilet with chest percussion, incentive spirometry and flutter valve along with inhalation treatment. He was started on empiric IV antibiotics. Pulmonary was consulted. For concerns for possible mucous plugging he underwent bronchoscopy on 02/27 where he was found to have a mucous plug blocking the right mainstem bronchus which was suctioned out. He tolerated the procedure well. His blood culture, sputum cultures so far. Studies including Fungitell has been sent out. Patient's oxygenation during the whole hospitalization remained stable. Repeat CT scan post bronchoscopy was done which showed significant resolution of the pneumothorax though there is still intermedius occlusion of right bronchus. Patient discharged in hemodynamically stable condition after home O2 evaluation has been done on oral antibiotics with advice and counseling about aspiration precautions, continuation of pulmonary toilet as an outpatient and to follow-up with pulmonary as an outpatient within next 2 weeks. Physical Exam Const: COMMON NORMALS: no acute distress and patient oriented x3 HENMT: COMMON NORMALS: normocephalic HEAD & SCALP: normocephalic Eye: COMMON NORMALS: Equal, round and reactive pupils present and EOMs intact bilaterally PUPIL: Yes Equal, round and reactive pupils present Neck/C-Spine: COMMON NORMALS: no JVD Resp: COMMON NORMALS: normal respiratory effort, No retractions, No use of accessory muscles and clear to auscultation bilaterally AUSCULTATION: clear to auscultation bilaterally OTHER: Decreased breath sounds over right lung base Cardio: COMMON NORMALS: no JVD, regular rate, regular rhythm, S1 normal heart sound present and S2 normal heart sound present RATE: regular rate RHYTHM: regular rhythm HEART SOUNDS: S1 normal heart sound present and S2 normal heart sound present GI: COMMON NORMALS: Normal to inspection, nondistended, normoactive bowel sounds present, Soft to palpation, non-tender and No hepatosplenomegaly present PALPATION: Yes Soft to palpation and Yes No hepatosplenomegaly present Extremity: COMMON NORMALS: no calf tenderness and no pedal edema Neuro: COMMON NORMALS: patient oriented x3, CN's II-XII intact bilaterally, moves all extremities and no focal motor deficits OTHER: Peripheral extremities, muscle wasting bilateral lower extremities Psych: COMMON NORMALS: mental status grossly normal Discharge Data Studies Completed and Pending Completed Studies During Hospitalization Category Date Time Status CT angio chest PE protcl [id number] Stat Cat Scan 02/25/23 20:[address] chest wo con [id number] Routine Cat Scan 02/28/23 08:17 Completed CXRP [XR chest 1V portable [id number]] Stat Exams 02/25/23 18:03 Completed XR chest 1V portable [id number] Routine Exams 02/26/23 07:00 Completed XR chest 1V portable [id number] Routine Exams 02/26/23 14:00 Completed XR chest 1V portable [id number] Routine Exams 02/27/23 05:00 Completed XR chest 1V portable [id number] Routine Exams 02/27/23 08:26 Completed XR chest 1V portable [id number] Routine Exams 02/27/23 14:00 Completed Pending at discharge Category Date Time Status Blood Culture Stat Lab 02/25/23 22:16 Results Bronch Washing Culture & GS Routine Lab 02/27/23 07:40 Results Fungal Culture not HR/SK/BL Routine Lab 02/27/23 07:40 Received Fungitell Glucan Assay (Blood) Routine Lab 02/27/23 06:08 Received Legionella Pneumophilla DFA Routine Lab 02/27/23 07:40 Received Mycobacteria, Culture w/Fluor Routine Lab 02/27/23 07:40 Received Sputum Culture and Gram Stain Stat Lab 02/25/23 20:36 Uncollected Cytology [PTH] Routine Pth 02/27/23 07:39 Received Radiology Impressions Chest CTA 02/25/23 20:36 IMPRESSION: 1. Increased large right pneumothorax. 2. Collapse of the right middle and lower lobes with filling defects in the bronchi. Follow-up with bronchoscopy recommended. 3. Multiple new right upper lobe nodules, the largest measuring 1.9 cm. For patients at low risk (minimal or absent history of smoking and of other known risk factors), recommend CT Chest at 3-6 months, then consider CT Chest at 18- 24 months. For patients at high risk (history of smoking or of other known risk factors), recommend CT Chest at 3-6 months, then CT Chest at 18-24 months. (Reference: Robb) References: Robb Wynn et al. Guidelines for Management of Incidental Pulmonary Nodules Detected on CT Images: From the Fleischner Society 2017. Radiology. 2017;284(1):228-243. ADDENDUM: 02/26/23 0009 THIS REPORT CONTAINS FINDINGS THAT MAY BE CRITICAL TO PATIENT CARE. The findings were verbally communicated via telephone conference with Dr. Ontiveros at 12:07 AM CDT on 02/26/2023. The findings were acknowledged and understood. Chest X-Ray 02/27/23 14:00 IMPRESSION: 1. Previously visualized right pneumothorax appears unchanged 2 comparison dated 02/27/2023 at 7:38 a.m. 2. Right lower lobe atelectasis. 3. Minimal opacity at the left lung base may reflect atelectasis or pneumonitis. Chest CT 02/28/23 08:17 IMPRESSION: 1. Decreased right pneumothorax since 02/25/2023. The pneumothorax occupies roughly 20-30% of the right hemithorax. 2. Persistent right bronchus intermedius occlusion and complete atelectasis of the right lower and middle lobes. Findings raise suspicion for endobronchial neoplasm. Consider bronchoscopy. 3. New focal opacity in the posterior left upper lobe since 02/25/2023. Atelectasis versus infection. 4. Dilated main pulmonary artery. Possible pulmonary hypertension. 5. 9 mm noncalcified right upper lobe pulmonary nodule.For both low risk and high risk patients, consider CT Chest at 3 months, PET/CT, or biopsy. (Reference: Robb) COMMENTS: In the absence of a history or active diagnosis of lung cancer, it is recommended that this patient with emphysema be evaluated for enrollment in a low dose CT lung cancer screening program. REFERENCES: bruce Kline al. Guidelines for Management of Incidental Pulmonary Nodules Detected on CT Images: From the Fleischner Society 2017. Radiology. 2017;284(1):228-243. Laboratory Results WBC 8.4 10^3/uL (4.0-10.0) 02/28/23 03:50 RBC 4.66 10^6/uL (4.1-5.3) 02/28/23 03:50 Hgb 10.7 g/dL (11.7-16.6) L 02/28/23 03:50 Hct 37.2 % (42.0-52.0) L 02/28/23 03:50 MCV 79.8 fl (80-94) L 02/28/23 03:50 MCH 23.0 pg (28.0-34.0) L 02/28/23 03:50 MCHC 28.8 g/dL (30.0-36.0) L 02/28/23 03:50 RDW 16.1 % (12.1-15.1) H 02/28/23 03:50 Plt Count 448 10^3/cmm (130-400) H 02/28/23 03:50 MPV 9.1 fL (7.4-10.4) 02/28/23 03:50 Neut % (Auto) 61.2 % 02/28/23 03:50 Lymph % (Auto) 24.5 % 02/28/23 03:50 Jewell % (Auto) 10.6 % 02/28/23 03:50 Eos % (Auto) 2.6 % 02/28/23 03:50 Baso % (Auto) 0.7 % 02/28/23 03:50 Neut # (Auto) 5.15 10^3/uL (1.8-7.7) 02/28/23 03:50 Lymph # (Auto) 2.1 10^3/uL (0.8-4.8) 02/28/23 03:50 Jewell # (Auto) 0.9 10^3/uL (0.2-0.9) 02/28/23 03:50 Eos # (Auto) 0.2 10^3/uL (0.0-0.8) 02/28/23 03:50 Baso # (Auto) 0.1 10^3/uL (0.0-0.1) 02/28/23 03:50 Nucleated RBC % (auto) 0 % 02/28/23 03:50 Nucleated RBCs # 0.0 /100WBC 02/28/23 03:50 PT 13.90 SECONDS (12.1-14.9) 02/25/23 19:48 INR 1.03 (0.8-1.2) 02/25/23 19:48 APTT 35.1 SECONDS (23.9-36.7) 02/25/23 19:48 Specimen Type Arterial 02/26/23 04:30 Sample Site Brachial, right 02/26/23 04:30 ABG pH 7.37 (7.35-7.45) 02/26/23 04:30 ABG pCO2 46.0 mmHg (35-45) H 02/26/23 04:30 ABG pO2 135.0 mmHg (80.0-100.0) H 02/26/23 04:30 ABG HCO3 26.4 mmol/L (22-26) H 02/26/23 04:30 ABG Base Excess 0.6 mmol/L (-2.0-2.0) 02/26/23 04:30 Magno Test N/a 02/26/23 04:30 Hematocrit 37.6 % (42-52) L 02/26/23 04:30 O2 Delivery Device Nrb 02/26/23 04:30 O2 Liters/Min 15.0 % 02/26/23 04:30 Extension Clerk ID Kt 02/26/23 04:30 Sodium 141 mmol/L (136-145) 02/28/23 03:50 Potassium 4.3 mmol/L (3.5-5.1) 02/28/23 03:50 Chloride 104 mmol/L (98-107) 02/28/23 03:50 Carbon Dioxide 26 mmol/L (22-29) 02/28/23 03:50 Anion Gap 15.3 (5-19) 02/28/23 03:50 BUN 13 mg/dL (6-20) 02/28/23 03:50 Creatinine 0.2 mg/dL (0.7-1.2) L 02/28/23 03:50 GFR Calculation 498.9 mL/min (90-130) H 02/28/23 03:50 Glucose 128 mg/dL (65-115) H 02/28/23 03:50 POC Glucose 169 mg/dL (70-110) H 02/28/23 12:41 Estimat Average Glucose 151 02/27/23 03:56 Hemoglobin A1c 6.9 % (4.0-6.0) H 02/27/23 03:56 Calculated Osmolality 294 mOsm/kg (285-295) 02/28/23 03:50 Calcium 8.8 mg/dL (8.5-10.5) 02/28/23 03:50 Phosphorus 3.7 mg/dL (2.5-4.5) 02/28/23 03:50 Magnesium 2.0 mg/dL (1.7-2.3) 02/28/23 03:50 Total Bilirubin 0.2 mg/dL (0.15-1.2) 02/28/23 03:50 AST 16 U/L (0-40) 02/28/23 03:50 ALT 20 U/L (0-41) 02/28/23 03:50 Alkaline Phosphatase 74 U/L (40-130) 02/28/23 03:50 Lactate Dehydrogenase 282 U/L (135-225) H 02/27/23 06:08 Troponin T Baseline 18 ng/L (0-15) H 02/25/23 19:48 Troponin T 120 Minute 18.41 ng/L (0-15) H 02/25/23 22:18 Delta Troponin T 0.41 ABS# (0-10) 02/25/23 22:18 Troponin T Hi Sens 6Hr 18.40 ng/L (0-15) H 02/26/23 01:37 Troponin T Hi Sens 6Hr Delta 0.40 ng/L (0-12) 02/26/23 01:37 C-Reactive Protein 86.8 mg/L (0.0-4.9) H 02/26/23 01:37 NT-Pro-B Natriuret Pep 136 pg/mL (0-125) H 02/26/23 01:37 Total Protein 7.1 g/dL (6.6-8.7) 02/28/23 03:50 Albumin 3.2 g/dL (3.5-5.2) L 02/28/23 03:50 Globulin 3.9 g/dL (1.3-4.6) 02/28/23 03:50 Triglycerides 106 mg/dL (0-150) 02/27/23 03:56 Cholesterol 96 mg/dL (0-200) 02/27/23 03:56 LDL Cholesterol, Calc 45 mg/dL (50-129) L 02/27/23 03:56 Total VLDL Cholesterol 21 mg/dL (0-30) 02/27/23 03:56 HDL Cholesterol 30 mg/dL (60-100) L 02/27/23 03:56 Cholesterol/HDL Ratio 3.20 mg/dL (1.0-5.00) 02/27/23 03:56 Vitamin B12 616 pg/mL (232-1245) 02/26/23 01:37 Folate > 20.0 ng/mL (4.5-32.2) 02/27/23 06:08 Procalcitonin 0.06 ng/mL (0-0.5) 02/26/23 01:37 Urine Color Yellow (Yellow) 02/25/23 01:38 Urine Appearance Slightly cloudy (CLEAR) A 02/25/23 01:38 Urine pH 5 (5-7) 02/25/23 01:38 Ur Specific [place] 1.015 (1.005-1.030) 02/25/23 01:38 Urine Protein Neg (Negative) 02/25/23 01:38 Urine Glucose (UA) 2+ (Normal) H 02/25/23 01:38 Urine Ketones Negative (Negative) 02/25/23 01:38 Urine Blood Trace (Negative) H 02/25/23 01:38 Urine Nitrate Positive (Negative) H 02/25/23 01:38 Urine Bilirubin Neg (Negative) 02/25/23 01:38 Urine Urobilinogen Neg mg/dL (Negative) 02/25/23 01:38 Ur Leukocyte Esterase 2+ (Negative) H 02/25/23 01:38 Urine RBC 5-10 /hpf (0-2) H 02/25/23 01:38 Urine WBC 15-25 /hpf (0-5) H 02/25/23 01:38 Ur Squamous Epith Cells None /hpf (0-5) 02/25/23 01:38 Calcium Oxalate Crystal 5-10 /hpf H 02/25/23 01:38 Amorphous Sediment Not Reportable 02/25/23 01:38 Urine Bacteria 2+ /hpf (NONE) H 02/25/23 01:38 Urine Yeast 3+ /hpf H 02/25/23 01:38 Nasal Influ A H1 2008 PCR Not detected (NOT DETECT) 02/25/23 22:21 Bronch Specimen Source Right middle lobe 02/27/23 07:40 Bronchial Fluid Color Pale yellow 02/27/23 07:40 Bronchial Fluid Appearance Cloudy (CLEAR) 02/27/23 07:40 Bronchial Fluid WBC 1480 /uL 02/27/23 07:40 Bronchial Fluid RBC 3 10^3/uL 02/27/23 07:40 Bronch Cells Counted 200 02/27/23 07:40 Bronchial Neutrophils 79.00 % (0.9-2.3) H 02/27/23 07:40 Bronchial Lymphocytes 5.00 % (10.71-12.91) L 02/27/23 07:40 Bronchial Macrophages 16.00 % (83.6-86.8) L 02/27/23 07:40 Bronchial Diff Comment Yes 02/27/23 07:40 Adenovirus (PCR) Not detected (NOT DETECT) 02/25/23 22:21 C. pneumoniae DNA (PCR) Not detected (NOT DETECT) 02/25/23 22:21 Coronavirus 229E (PCR) Not detected (NOT DETECT) 02/25/23 22:21 Human Metapneumovir PCR Not detected (NOT DETECT) 02/25/23 22:21 Influenza A (H1) PCR Not detected (NOT DETECT) 02/25/23 22:21 Influenza A (H3) PCR Not detected (NOT DETECT) 02/25/23 22:21 Influenza Type A (PCR) Not detected (NOT DETECT) 02/25/23 22:21 Influenza Type B (PCR) Not detected (NOT DETECT) 02/25/23 22:21 M. pneumoniae (PCR) Not detected (NOT DETECT) 02/25/23 22:21 Parainfluenza 1 (PCR) Not detected (NOT DETECT) 02/25/23 22:21 Parainfluenza 2 (PCR) Not detected (NOT DETECT) 02/25/23 22:21 Parainfluenza 3 (PCR) Not detected (NOT DETECT) 02/25/23 22:21 Parainfluenza 4 (PCR) Not detected (NOT DETECT) 02/25/23 22:21 RSV Type A (PCR) Not detected (NOT DETECT) 02/25/23 22:21 RSV Type B (PCR) Not detected (NOT DETECT) 02/25/23 22:21 Entero/Rhino (PCR) Not detected (NOT DETECT) 02/25/23 22:21 SARS-CoV-2 (PCR) Not detected (NOT DETECT) 02/25/23 22:21 Vitals Last Vital Signs Temp 97.8 F 02/28/23 04:00 Pulse 83 02/28/23 12:46 Resp 20 H 02/28/23 12:00 BP 119/74 02/28/23 12:46 Pulse Ox 96 02/28/23 12:46 O2 Del Method Nasal Cannula 02/28/23 12:00 O2 Flow Rate 3 02/28/23 12:16 FiO2 15 02/26/23 16:00 Discharge Plan Discharge Patient Disposition: Home Health Service Condition: Stable Prescriptions: New Willie Ellipta 100-62.5-25 mcg blister with device 1 inh inhalation DAILY Qty: 60 0RF acetylcysteine 200 mg/mL (20 %) Solution 100 mg inhalation BID 14 Days Qty: 14 0RF Hyper-River 3.5 % Solution For Nebulization 4 ml inhalation BID.RESPIRATORY 14 Days Qty: 120 0RF Continued albuterol sulfate 90 mcg/actuation HFA aerosol inhaler 2 puff INHALATION Q6H PRN (Reason: Shortness Of Breath) aspirin [Adult Aspirin Regimen] 81 mg tablet,delayed release (DR/EC) 81 mg PO QAM atorvastatin 40 mg tablet 40 mg PO DAILY@16 baclofen 20 mg tablet See Rx Instructions .ROUTE .COMPLEX Rx Instructions: 2 TABS IN AM, 4 TABS@ 4PM, AND 3 TABS AT BEDTIME clopidogrel 75 mg tablet 75 mg PO QAM fluticasone propionate [Flonase Allergy Relief] 50 mcg/actuation spray,suspension 2 spray INTRANASAL DAILY PRN (Reason: Allergy Symptoms) gabapentin 300 mg capsule 600 mg PO TID methenamine hippurate 1 gram tablet 1 gm PO BID ascorbate calcium (vitamin C) 500 mg tablet 500 mg PO BID paroxetine HCl 20 mg tablet 20 mg PO DAILY amitriptyline 10 mg tablet 10 mg PO BID multivitamin Tablet 1 tab PO DAILY vitamin A 2,400 mcg Capsule 2,400 mcg PO BEDTIME cholecalciferol (vitamin D3) [Vitamin D3] 25 mcg (1,000 unit) Capsule 25 mcg PO BEDTIME Probiotic 15 billion cell Capsule 1 cap PO BID bupropion HCl 150 mg tablet sustained-release 12 hr 150 mg PO BID metformin 1,000 mg tablet 1,000 mg PO BID esomeprazole magnesium [Nexium] 20 mg Capsule,Delayed Release(Dr/Ec) 20 mg PO DAILY coenzyme Q10 [CoQ-10] 100 mg Capsule 100 mg PO BEDTIME d-mannose 500 mg Capsule 500 mg PO BID Blood Builder 1 tab PO DAILY@16 Jevon Mag Zinc Plus D3 333 mg-133 unit -133 mg-5 mg Tablet 1 tab PO BEDTIME levofloxacin 500 mg tablet 500 mg PO DAILY Qty: 7 0RF Rx Instructions: for 7 days (rx filled 02/25/23) Discharge Orders: Discharge Order (Routine); Ordered 02/28/23 Ordered By: Augustus Torres Other Ambulatory Orders: DME: Oxygen (Order) Location: None Selected Ordered By: Augustus Torres Referrals: [facility] [place]] Emelia Martínez [Primary Care Provider] - 7-10 days Datar,Edson Solorzano MD [Physician] - 2 weeks Discharge Diet: Cardiac and Diabetic Discharge Activity: Resume usual activity and Increase activity as tolerated Patient Instructions: Opioid Safety Activity Restrictions/Additional Instructions: Please make sure that he is sitting up for at least 45 minutes to 1 hour after each meal. Please take multiple small bites and chew thoroughly before swallowing. Continue using Mucomyst and hypertonic saline nebulization twice daily for next 2 weeks. Trelegy is inhalation treatment going forward once daily. Please follow-up with pulmonology within next 2 weeks. You will have a PET scan with pulmonology Patient. Please follow-up with a primary care provider within next 1 week. Continue wound care dressing as an outpatient. Continue to follow-up with wound care services with outpatient on prior scheduled appointments. Discharge Attestations Time Spent in Discharge Care*: greater than 30 min Specific Discharge Activities: educating patient, discussing with pcp/other providers, discussing with director case management/social workers/dc planners, documenting/other paperwork and evaluating patient/reviewing data Status at Discharge: Cognitive status at discharge: cognitively intact , Behavioral status at discharge: cooperative , Functional status at discharge: other assisted ambulation , Overall status at discharge: patient is back to baseline Quality Metrics Clinical Quality Measures [ No reported AMI, CVA or VTE this stay] Coding Level of Care Code 32932 Total time (in minutes) for Discharge: 60 Diagnoses Mucus plugging of bronchi T17.500A Emphysema of lung J43.9 Lung nodules R91.8 Atelectasis J98.11 History of cardiac arrest Z86.74 Sacral wound S31.000A
--- NOTE | 2023-02-28 13:09 | PC.SOCIAL ---
Imm update Imm updated with patient at bedside. Copy of page 2 provided. He verbalized understanding. Copy in chart initialed, dated and timed.
[2023-03-06 20:49] LABS: Fungitell 1-3-B Glucan Assay <31 pg/mL; Interpretation NEGATIVE
== END 2023-02-28 15:42 | disposition home or self-care (01) | DRG 199 ==
LOC: ER 21:21 → ICU 22:48 → MEDSURG 02-28 09:57
PROVIDERS: Internal Medicine Pulmonary Disease; Admitting Provider Family Medicine; Emergency Provider Emergency Medicine; PCP Registered Nurse; Visit Provider Student in an Organized Health Care Education/Training Program
PROC: 0BJ08ZZ Inspection of Tracheobronchial Tree, Via Natural or Artificial Opening Endoscopic (ICD-10-PCS; CPT 31622; principal; 2023-02-27 07:00)
DX: J93.9 Pneumothorax, unspecified (principal); G82.50 Quadriplegia, unspecified; L89.213 Pressure ulcer of right hip, stage 3; L89.153 Pressure ulcer of sacral region, stage 3; J96.01 Acute respiratory failure with hypoxia; J18.9 Pneumonia, unspecified organism; T17.590A Other foreign object in bronchus causing asphyxiation, initial encounter; N39.0 Urinary tract infection, site not specified; X58.XXXA Exposure to other specified factors, initial encounter; I25.10 Atherosclerotic heart disease of native coronary artery without angina pectoris; Z96.0 Presence of urogenital implants; E11.9 Type 2 diabetes mellitus without complications; Z86.74 Personal history of sudden cardiac arrest; E78.49 Other hyperlipidemia; I10 Essential (primary) hypertension; N31.9 Neuromuscular dysfunction of bladder, unspecified; Z87.440 Personal history of urinary (tract) infections; G47.30 Sleep apnea, unspecified; Z99.3 Dependence on wheelchair; Z87.891 Personal history of nicotine dependence; R91.1 Solitary pulmonary nodule; D50.9 Iron deficiency anemia, unspecified; Z88.0 Allergy status to penicillin; Z88.2 Allergy status to sulfonamides; Z79.84 Long term (current) use of oral hypoglycemic drugs; Z79.82 Long term (current) use of aspirin; Z79.51 Long term (current) use of inhaled steroids; J43.9 Emphysema, unspecified
CPT/HCPCS: 36415; 36416; 71045; 71250; 71275; 80053; 80061; 80503; 81001; 82607; 82746; 82803; 82962; 83036; 83615; 83735; 83880; 84100; 84145; 84484; 85025; 85610; 85730; 86140; 87015; 87040; 87070; 87086; 87102; 87116; 87205; 87206; 87278; 87449; 87486; 87581; 87633; 87801; 88112; 88305; 89050; 93005; 94640; 94667; 94668; 94760; 96372; 99285; J0696; J1815; J1956; J2370; J2704; J3490; J7030; J7608; J7626; Q9967

== ENCOUNTER → 2023-03-02 14:01 | Outpatient (BNVA) | payer MEDICARE, MEDICAID, SELFPAY | PROVIDERS: PCP Registered Nurse; Visit Provider Thoracic Surgery (Cardiothoracic Vascular Surgery) | DX: I96 Gangrene, not elsewhere classified (principal); L89.214 Pressure ulcer of right hip, stage 4; L89.313 Pressure ulcer of right buttock, stage 3; L89.152 Pressure ulcer of sacral region, stage 2 | CPT/HCPCS: 11042; 97597; 97605; A6237; A6250 ==

== ENCOUNTER → 2023-03-16 13:55 | Outpatient (BNVA) | payer MEDICARE, MEDICAID, SELFPAY | PROVIDERS: PCP Registered Nurse; Visit Provider Nurse Practitioner Family | DX: I96 Gangrene, not elsewhere classified (principal); L89.313 Pressure ulcer of right buttock, stage 3; L89.152 Pressure ulcer of sacral region, stage 2; L89.214 Pressure ulcer of right hip, stage 4 | CPT/HCPCS: 11042; 97605; A6237; A6250 ==

== ENCOUNTER → 2023-03-30 13:55 | Outpatient (BNVA) | payer MEDICARE, MEDICAID, SELFPAY | PROVIDERS: PCP Registered Nurse; Visit Provider Thoracic Surgery (Cardiothoracic Vascular Surgery) | DX: I96 Gangrene, not elsewhere classified (principal); L89.313 Pressure ulcer of right buttock, stage 3; L89.152 Pressure ulcer of sacral region, stage 2; L89.894 Pressure ulcer of other site, stage 4 | CPT/HCPCS: 11042; 97605; A6237; A6250 ==

== ENCOUNTER → 2023-04-13 13:45 | Outpatient (BNVA) | payer MEDICARE, MEDICAID, SELFPAY | PROVIDERS: PCP Registered Nurse; Visit Provider Thoracic Surgery (Cardiothoracic Vascular Surgery) | DX: I96 Gangrene, not elsewhere classified (principal); T81.31XD Disruption of external operation (surgical) wound, not elsewhere classified, subsequent encounter; Y83.8 Other surgical procedures as the cause of abnormal reaction of the patient, or of later complication, without mention of misadventure at the time of the procedure; L89.152 Pressure ulcer of sacral region, stage 2; L89.214 Pressure ulcer of right hip, stage 4 | CPT/HCPCS: 11042; 97597; A6237; A6250 ==

== ENCOUNTER → 2023-04-27 14:00 | Outpatient (BNVA) | payer MEDICARE, MEDICAID, SELFPAY | PROVIDERS: PCP Registered Nurse; Visit Provider Thoracic Surgery (Cardiothoracic Vascular Surgery) | DX: L89.214 Pressure ulcer of right hip, stage 4 (principal); L89.313 Pressure ulcer of right buttock, stage 3; L89.152 Pressure ulcer of sacral region, stage 2 | CPT/HCPCS: 11042; 97597; 97605; A6237 ==

== ENCOUNTER → 2023-05-11 14:15 | Outpatient (BNVA) | payer MEDICARE, MEDICAID, SELFPAY | PROVIDERS: PCP Registered Nurse; Visit Provider Thoracic Surgery (Cardiothoracic Vascular Surgery) | DX: I96 Gangrene, not elsewhere classified (principal); L89.214 Pressure ulcer of right hip, stage 4; L89.313 Pressure ulcer of right buttock, stage 3; L89.152 Pressure ulcer of sacral region, stage 2 | CPT/HCPCS: 11042 ==

== ENCOUNTER → 2023-05-25 13:55 | Outpatient (BNVA) | payer MEDICARE, MEDICAID, SELFPAY | PROVIDERS: PCP Registered Nurse; Visit Provider Thoracic Surgery (Cardiothoracic Vascular Surgery) | DX: I96 Gangrene, not elsewhere classified (principal); L89.214 Pressure ulcer of right hip, stage 4; L89.313 Pressure ulcer of right buttock, stage 3; L89.152 Pressure ulcer of sacral region, stage 2 | CPT/HCPCS: 11042; 97597; 97605; A6219; A6237; A6446 ==

== ENCOUNTER → 2023-06-08 13:52 | Outpatient (BNVA) | payer MEDICARE, MEDICAID, SELFPAY | PROVIDERS: PCP Registered Nurse; Visit Provider Thoracic Surgery (Cardiothoracic Vascular Surgery) | DX: I96 Gangrene, not elsewhere classified (principal); L89.214 Pressure ulcer of right hip, stage 4; L89.313 Pressure ulcer of right buttock, stage 3; L89.152 Pressure ulcer of sacral region, stage 2 | CPT/HCPCS: 11042; 97597; 97605; A6021; A6237 ==

== ENCOUNTER → 2023-06-26 09:41 | Outpatient (BNVA) | payer MEDICARE, MEDICAID, SELFPAY | PROVIDERS: PCP Registered Nurse; Visit Provider Thoracic Surgery (Cardiothoracic Vascular Surgery) | DX: L89.314 Pressure ulcer of right buttock, stage 4 (principal) | CPT/HCPCS: 11042; 11044; 87070; 87176; 87205; 97597 ==

== ENCOUNTER → 2023-07-06 08:57 | Outpatient (BNVA) | payer MEDICARE, MEDICAID, SELFPAY | PROVIDERS: PCP Registered Nurse; Visit Provider Thoracic Surgery (Cardiothoracic Vascular Surgery) | DX: T81.31XD Disruption of external operation (surgical) wound, not elsewhere classified, subsequent encounter (principal); Y83.8 Other surgical procedures as the cause of abnormal reaction of the patient, or of later complication, without mention of misadventure at the time of the procedure; I96 Gangrene, not elsewhere classified; L89.214 Pressure ulcer of right hip, stage 4; L89.152 Pressure ulcer of sacral region, stage 2 | CPT/HCPCS: 11042; 97597; 97605; A6237; A6250 ==

== ENCOUNTER → 2023-07-27 14:02 | Outpatient (BNVA) | payer MEDICARE, MEDICAID, SELFPAY | PROVIDERS: PCP Registered Nurse; Visit Provider Nurse Practitioner Family | DX: I96 Gangrene, not elsewhere classified (principal); L89.313 Pressure ulcer of right buttock, stage 3; L89.152 Pressure ulcer of sacral region, stage 2; L89.214 Pressure ulcer of right hip, stage 4 | CPT/HCPCS: 11042; 97605; A6210; A6237; A6250; A6251 ==

== ENCOUNTER → 2023-08-10 13:52 | Outpatient (BNVA) | payer MEDICARE, MEDICAID, SELFPAY | PROVIDERS: PCP Registered Nurse; Visit Provider Thoracic Surgery (Cardiothoracic Vascular Surgery) | DX: L89.153 Pressure ulcer of sacral region, stage 3 (principal); L89.214 Pressure ulcer of right hip, stage 4; L89.313 Pressure ulcer of right buttock, stage 3 | CPT/HCPCS: 97605; A6237; A6250 ==

== ENCOUNTER → 2023-08-17 14:15 | Outpatient (BNVA) | payer MEDICARE, MEDICAID, SELFPAY | PROVIDERS: PCP Registered Nurse; Visit Provider Thoracic Surgery (Cardiothoracic Vascular Surgery) | DX: I96 Gangrene, not elsewhere classified (principal); L89.214 Pressure ulcer of right hip, stage 4; L89.313 Pressure ulcer of right buttock, stage 3; L89.152 Pressure ulcer of sacral region, stage 2 | CPT/HCPCS: 11042; 87070; 97597; A6219 ==

== ENCOUNTER 2023-08-24 15:46 | Outpatient (CLI) | payer MEDICARE, MEDICAID, SELFPAY ==
--- NOTE | 2023-08-24 16:12 | XRR_ITS ---
PROCEDURE INFORMATION: Exam: XR Pelvis Exam date and time: 08/24/2023 4:16 PM Age: 53 years old Clinical indication: Condition or disease; Other: On-healing ulcer right buttock; Additional info: Non-healing ulcer right buttock; Rule out osteomyelitis TECHNIQUE: Imaging protocol: Radiologic exam of the pelvis. Views: 1 or 2 view. COMPARISON: CT abdomen pelvis w con* [id number] 08/11/2022 8:40 AM FINDINGS: Bones/joints: Degenerative change is seen about both hips, with dystrophic ossification bilaterally. No fracture or dislocation is seen about the hips or pelvis. Postsurgical change with hardware lower lumbar spine/upper sacrum. Soft tissue lucency is seen below the right ischial pelvic bone. There is suggestion of mild smooth chronic cortical bone loss of the posterior ischial margin. No acute osseous abnormality otherwise. Soft tissues: See Bones/joints finding. XR/XR pelvis min 3V [id number] IMPRESSION: 1. Chronic degenerative changes with dystrophic soft tissue ossification about both hips. 2. Soft tissue lucent area or ulcer seen below the right ischial pelvic bone with suggestion of mild smooth chronic cortical bone loss of the posterior ischial margin. No periosteal bone reaction. This could be associated with prior or treated osteomyelitis. 3. No acute osseous abnormality, otherwise.
== END 2023-08-24 15:47 | disposition home or self-care (01) ==
LOC: RAD 15:48
PROVIDERS: PCP Registered Nurse; Visit Provider Thoracic Surgery (Cardiothoracic Vascular Surgery)
DX: M79.18 Myalgia, other site; M19.09 Primary osteoarthritis, other specified site; L89.313 Pressure ulcer of right buttock, stage 3; L89.152 Pressure ulcer of sacral region, stage 2; L89.214 Pressure ulcer of right hip, stage 4
CPT/HCPCS: 11042; 72190; 97597; A6219

== ENCOUNTER → 2023-09-07 14:20 | Outpatient (BNVA) | payer MEDICARE, MEDICAID, SELFPAY | PROVIDERS: PCP Registered Nurse; Visit Provider Thoracic Surgery (Cardiothoracic Vascular Surgery) | DX: L89.214 Pressure ulcer of right hip, stage 4 (principal); L89.313 Pressure ulcer of right buttock, stage 3; L89.152 Pressure ulcer of sacral region, stage 2 | CPT/HCPCS: 11042; 87070; A6219; A6446 ==

== ENCOUNTER → 2023-09-21 13:05 | Outpatient (BNVA) | payer MEDICARE, MEDICAID, SELFPAY | PROVIDERS: PCP Registered Nurse; Visit Provider Thoracic Surgery (Cardiothoracic Vascular Surgery) | DX: I96 Gangrene, not elsewhere classified (principal); L89.214 Pressure ulcer of right hip, stage 4; L89.313 Pressure ulcer of right buttock, stage 3; L89.152 Pressure ulcer of sacral region, stage 2 | CPT/HCPCS: 11042; 97597 ==

== ENCOUNTER → 2023-10-12 13:56 | Outpatient (BNVA) | payer MEDICARE, MEDICAID, SELFPAY | PROVIDERS: PCP Registered Nurse; Visit Provider Thoracic Surgery (Cardiothoracic Vascular Surgery) | DX: I96 Gangrene, not elsewhere classified (principal); L89.313 Pressure ulcer of right buttock, stage 3; L89.152 Pressure ulcer of sacral region, stage 2; L89.214 Pressure ulcer of right hip, stage 4 | CPT/HCPCS: 11042; 97597; A6446 ==

== ENCOUNTER → 2023-10-26 13:47 | Outpatient (BNVA) | payer MEDICARE, MEDICAID, SELFPAY | PROVIDERS: PCP Registered Nurse; Visit Provider Thoracic Surgery (Cardiothoracic Vascular Surgery) | DX: L89.214 Pressure ulcer of right hip, stage 4 (principal); L89.313 Pressure ulcer of right buttock, stage 3; L89.312 Pressure ulcer of right buttock, stage 2 | CPT/HCPCS: 11042; 97597; A6446 ==

== ENCOUNTER 2023-11-05 08:58 | Outpatient (CLI) | payer MEDICARE, MEDICAID, SELFPAY ==
[2023-11-05 09:23] LABS: Basophils # 0.1 10^3/uL (0.0-0.1); Basophils % 1.4 %; Eosinophils # 0.4 10^3/uL (0.0-0.8); Eosinophils % 5.5 %; Hematocrit 41.2 % (37-53); Lymphocytes # 1.5 10^3/uL (0.8-4.8); Lymphocytes % 20.2 %; Mean Corpuscular HGB Conc 27.4 g/dL (30-55); Mean Corpuscular Hemoglobin 19.2 pg (27-33); Mean Corpuscular Volume 70.1 fl (82-101); Mean Platelet Volume 9.2 fL (7.4-10.4); Monocytes # 0.8 10^3/uL (0.2-0.9); Monocytes % 11.2 %; Neutrophils # 4.48 10^3/uL (1.8-7.7); Neutrophils % 61.3 %; Nucleated Red Blood Cells % 0 %; Platelet Count 401 10^3/cmm (157-399); Red Blood Count 5.88 10^6/uL (3.85-5.65); Red Cell Distribution Width 19.9 % (12.1-15.1); White Blood Count 7.31 10^3/uL (3.29-11.43)
[2023-11-05] MEDS: iohexol 350 mg/mL 500 mL Btl (per mL) IV (09:27)
--- NOTE | 2023-11-05 09:30 | CTR_ITS ---
PROCEDURE INFORMATION: Exam: CT Pelvis With Contrast Exam date and time: 11/05/2023 9:24 AM Age: 53 years old Clinical indication: Nonhealing ulcer right buttock. Prior lumbar surgery. Non-healing ulcer right buttock. Pain. Rule out osteomyelitis. TECHNIQUE: Imaging protocol: Computed tomography of the pelvis with contrast. Radiation optimization: All CT scans at this facility use at least one of these dose optimization techniques: automated exposure control; mA and/or kV adjustment per patient size (includes targeted exams where dose is matched to clinical indication); or iterative reconstruction. Contrast material: OMNI 350; Contrast volume: 95 ml; Contrast route: INTRAVENOUS (IV); REPORTING DATA: Count of CT and Cardiac NM exams in prior 12 months: This patient has received 2 known CTs and 0 known cardiac nuclear medicine studies in the 12 months prior to the current study. COMPARISON: CT abdomen pelvis w con* [id number] 08/11/2022 8:40 AM RADIATION DOSE METRICS: Total DLP (mGy-cm): 511.37 FINDINGS: Tubes, catheters and devices: A Olivas catheter is in place. Intraperitoneal space: No free intraperitoneal air is seen. Vasculature: An IVC filter is incompletely visualized. Lymph nodes: No significant lymphadenopathy is seen. Urinary bladder: The bladder is decompressed. Reproductive: The prostate measures approximately 3.9 x 5.1 cm. Bones/joints: Lumbar spinal hardware is incompletely visualized. Fixed grade 1/2 anterolisthesis of L5. There has been probable prior resection of the distal sacrum. The osseous margin is sharp arguing against osteomyelitis at this location. There is mild irregularity and sclerosis involving the right ischium likely reflecting osteomyelitis. 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 Soft tissues: There is a prominent sacral decubitus ulcer with fluid and gas in the ulcer crater. There is a right trochanteric decubitus ulcer extending to the underlying bone. No definite osseous irregularity is seen at this location to suggest osteomyelitis. There is a large right ischial decubitus ulcer that is likely packed. Tiny fat containing umbilical hernia. CT/CT pelvis w con* [id number] IMPRESSION: 1. Large right ischial decubitus ulcer that is likely packed. There is mild irregularity and sclerosis involving the right ischium likely reflecting osteomyelitis. 2. Prominent sacral decubitus ulcer with fluid and gas in the ulcer crater. There has been probable prior resection of the distal sacrum. The osseous margin is sharp arguing against osteomyelitis at this location. 3. Right trochanteric decubitus ulcer extending to the underlying bone. No definite osseous irregularity is seen at this location to suggest osteomyelitis. 4. 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 COMMENTS: For patients with an IVC filter, recommend assessment for a management plan for the patient's IVC filter. If there is no established management plan, recommend referral to an interventional clinician on a nonemergent basis for evaluation.
[2023-11-05 09:48] LABS: Anion Gap 15.4 (5-19); Blood Urea Nitrogen 21 mg/dL (6-20); Calcium 9.8 mg/dL (8.5-10.5); Carbon Dioxide 25 mmol/L (22-29); Chloride 103 mmol/L (98-107); Glomerular Filtration Rate 312.4 mL/min (90-130); Glucose 259 mg/dL (65-115); Osmolality Calculated 300 mOsm/kg (285-295); Potassium 4.4 mmol/L (3.5-5.1); Sodium 139 mmol/L (136-145)
== END 2023-11-05 08:59 | disposition home or self-care (01) ==
LOC: RAD 08:59
PROVIDERS: PCP Registered Nurse; Visit Provider Thoracic Surgery (Cardiothoracic Vascular Surgery)
DX: L89.314 Pressure ulcer of right buttock, stage 4 (principal); L89.159 Pressure ulcer of sacral region, unspecified stage; L89.214 Pressure ulcer of right hip, stage 4; M16.0 Bilateral primary osteoarthritis of hip
CPT/HCPCS: 36415; 72193; 80048; 85025; Q9967

== ENCOUNTER → 2023-11-13 14:21 | Outpatient (BNVA) | payer MEDICARE, MEDICAID, SELFPAY | PROVIDERS: PCP Registered Nurse; Visit Provider Thoracic Surgery (Cardiothoracic Vascular Surgery) | DX: I96 Gangrene, not elsewhere classified (principal); L89.214 Pressure ulcer of right hip, stage 4; L89.313 Pressure ulcer of right buttock, stage 3; L89.152 Pressure ulcer of sacral region, stage 2 | CPT/HCPCS: 11042; 87070; 97597 ==

== ENCOUNTER → 2023-11-23 13:58 | Outpatient (BNVA) | payer MEDICARE, MEDICAID, SELFPAY | PROVIDERS: PCP Registered Nurse; Visit Provider Thoracic Surgery (Cardiothoracic Vascular Surgery) | DX: I96 Gangrene, not elsewhere classified (principal); L89.214 Pressure ulcer of right hip, stage 4; L89.313 Pressure ulcer of right buttock, stage 3; L89.152 Pressure ulcer of sacral region, stage 2 | CPT/HCPCS: 11042; 97597 ==

== ENCOUNTER → 2023-12-07 14:02 | Outpatient (BNVA) | payer MEDICARE, MEDICAID, SELFPAY | PROVIDERS: PCP Registered Nurse; Visit Provider Thoracic Surgery (Cardiothoracic Vascular Surgery) | DX: I96 Gangrene, not elsewhere classified (principal); L89.214 Pressure ulcer of right hip, stage 4; L89.313 Pressure ulcer of right buttock, stage 3; L89.152 Pressure ulcer of sacral region, stage 2 | CPT/HCPCS: 11042; 97597; A6219 ==

== ENCOUNTER → 2023-12-22 13:56 | Outpatient (BNVA) | payer MEDICARE, MEDICAID, SELFPAY | PROVIDERS: PCP Registered Nurse; Visit Provider Thoracic Surgery (Cardiothoracic Vascular Surgery) | DX: L89.214 Pressure ulcer of right hip, stage 4 (principal); L89.313 Pressure ulcer of right buttock, stage 3; L89.152 Pressure ulcer of sacral region, stage 2 | CPT/HCPCS: 97597 ==

== ENCOUNTER → 2024-01-19 13:55 | Outpatient (BNVA) | payer MEDICARE, MEDICAID, SELFPAY | PROVIDERS: PCP Registered Nurse; Visit Provider Thoracic Surgery (Cardiothoracic Vascular Surgery) | DX: I96 Gangrene, not elsewhere classified (principal); L89.313 Pressure ulcer of right buttock, stage 3; L89.152 Pressure ulcer of sacral region, stage 2; L89.214 Pressure ulcer of right hip, stage 4 | CPT/HCPCS: 97597 ==

== ENCOUNTER → 2024-02-11 09:27 | Outpatient (BNVA) | payer MEDICARE, MEDICAID, SELFPAY | PROVIDERS: PCP Registered Nurse; Visit Provider Thoracic Surgery (Cardiothoracic Vascular Surgery) | DX: L89.214 Pressure ulcer of right hip, stage 4 (principal); L89.313 Pressure ulcer of right buttock, stage 3; L89.152 Pressure ulcer of sacral region, stage 2 | CPT/HCPCS: 97597; A6210 ==

== ENCOUNTER → 2024-02-17 13:10 | Outpatient (BNVA) | payer MEDICARE, MEDICAID, SELFPAY | PROVIDERS: PCP Registered Nurse; Visit Provider Thoracic Surgery (Cardiothoracic Vascular Surgery) | DX: L89.313 Pressure ulcer of right buttock, stage 3 (principal); L89.152 Pressure ulcer of sacral region, stage 2; L89.214 Pressure ulcer of right hip, stage 4 | CPT/HCPCS: 97597; A6237; A6250 ==

== ENCOUNTER → 2024-02-26 10:04 | Outpatient (BNVA) | payer MEDICARE, MEDICAID, SELFPAY | PROVIDERS: PCP Registered Nurse; Visit Provider Thoracic Surgery (Cardiothoracic Vascular Surgery) | DX: L89.214 Pressure ulcer of right hip, stage 4 (principal); L89.313 Pressure ulcer of right buttock, stage 3; L89.152 Pressure ulcer of sacral region, stage 2 | CPT/HCPCS: 11042; 97597 ==

== ENCOUNTER → 2024-03-04 10:49 | Outpatient (BNVA) | payer MEDICARE, MEDICAID, SELFPAY | PROVIDERS: PCP Registered Nurse; Visit Provider Thoracic Surgery (Cardiothoracic Vascular Surgery) | DX: L89.614 Pressure ulcer of right heel, stage 4 (principal); L89.313 Pressure ulcer of right buttock, stage 3; L89.152 Pressure ulcer of sacral region, stage 2 | CPT/HCPCS: 11042; 87070; 87077; 87176; 87186; 87205; 97597; A6197; A6446 ==

== ENCOUNTER → 2024-03-18 10:00 | Outpatient (BNVA) | payer MEDICARE, MEDICAID, SELFPAY | PROVIDERS: PCP Registered Nurse; Visit Provider Thoracic Surgery (Cardiothoracic Vascular Surgery) | DX: I96 Gangrene, not elsewhere classified (principal); L89.214 Pressure ulcer of right hip, stage 4; L89.313 Pressure ulcer of right buttock, stage 3; L89.152 Pressure ulcer of sacral region, stage 2 | CPT/HCPCS: 97597; 99212; A6197 ==

== ENCOUNTER 2024-04-01 09:34 | Outpatient (CLI) | payer MEDICARE, MEDICAID, SELFPAY ==
[2024-04-01 09:50] LABS: Basophils # 0.1 10^3/uL (0.0-0.1); Eosinophils # 0.2 10^3/uL (0.0-0.8); Eosinophils % 3.1 %; Hematocrit 35.2 % (37-53); Lymphocytes # 1.5 10^3/uL (0.8-4.8); Lymphocytes % 20.3 %; Mean Corpuscular HGB Conc 26.7 g/dL (30-55); Mean Corpuscular Hemoglobin 17.5 pg (27-33); Mean Corpuscular Volume 65.5 fl (82-101); Mean Platelet Volume 9.4 fL (7.4-10.4); Monocytes # 0.9 10^3/uL (0.2-0.9); Monocytes % 12.7 %; Neutrophils # 4.48 10^3/uL (1.8-7.7); Neutrophils % 62.5 %; Nucleated Red Blood Cells % 0 %; Platelet Count 344 10^3/cmm (157-399); Red Blood Count 5.37 10^6/uL (3.85-5.65); Red Cell Distribution Width 19.9 % (12.1-15.1); White Blood Count 7.16 10^3/uL (3.29-11.43)
[2024-04-01 09:53] LABS: Erythrocyte Sedimentation Rate 72 mm/hr (0-10)
[2024-04-01 10:10] LABS: Alanine Aminotransferase 33 U/L (0-41); Albumin Level 3.8 g/dL (3.5-5.2); Alkaline Phosphatase 100 U/L (40-130); Anion Gap 15.2 (5-19); Aspartate Amino Transferase 15 U/L (0-40); Blood Urea Nitrogen 26 mg/dL (6-20); C Reactive Protein 24.2 mg/L (0.0-4.9); Calcium 9.3 mg/dL (8.5-10.5); Carbon Dioxide 22 mmol/L (22-29); Chloride 102 mmol/L (98-107); Globulin 3.8 g/dL (1.3-4.6); Glomerular Filtration Rate 223.3 mL/min (90-130); Glucose 318 mg/dL (65-115); Osmolality Calculated 297 mOsm/kg (285-295); Potassium 4.2 mmol/L (3.5-5.1); Sodium 135 mmol/L (136-145); Total Bilirubin 0.2 mg/dL (0.15-1.2); Total Protein 7.6 g/dL (6.6-8.7)
== END 2024-04-01 09:35 | disposition home or self-care (01) ==
LOC: LAB 09:35
PROVIDERS: PCP Registered Nurse; Visit Provider Thoracic Surgery (Cardiothoracic Vascular Surgery)
DX: M86.9 Osteomyelitis, unspecified (principal); A49.02 Methicillin resistant Staphylococcus aureus infection, unspecified site
CPT/HCPCS: 36415; 80053; 85025; 85651; 86140; 97597

== ENCOUNTER 2024-04-22 09:24 | Outpatient (CLI) | payer MEDICARE, MEDICAID, SELFPAY ==
[2024-04-22 10:16] LABS: Basophils # 0.1 10^3/uL (0.0-0.1); Eosinophils # 0.2 10^3/uL (0.0-0.8); Eosinophils % 2.5 %; Lymphocytes # 1.4 10^3/uL (0.8-4.8); Lymphocytes % 14.4 %; Mean Corpuscular HGB Conc 25.4 g/dL (30-55); Mean Corpuscular Hemoglobin 16.5 pg (27-33); Mean Corpuscular Volume 65.1 fl (82-101); Mean Platelet Volume 10.1 fL (7.4-10.4); Monocytes # 0.9 10^3/uL (0.2-0.9); Monocytes % 9.2 %; Neutrophils # 7.05 10^3/uL (1.8-7.7); Neutrophils % 72.4 %; Nucleated Red Blood Cells % 0 %; Platelet Count 379 10^3/cmm (157-399); Red Blood Count 5.38 10^6/uL (3.85-5.65); Red Cell Distribution Width 20.3 % (12.1-15.1); White Blood Count 9.74 10^3/uL (3.29-11.43)
[2024-04-22 10:25] LABS: Erythrocyte Sedimentation Rate 83 mm/hr (0-10)
[2024-04-22 10:35] LABS: Anion Gap 19.2 (5-19); Blood Urea Nitrogen 20 mg/dL (6-20); Calcium 9.3 mg/dL (8.5-10.5); Carbon Dioxide 23 mmol/L (22-29); Chloride 101 mmol/L (98-107); Creatine Phosphokinase 65 U/L (39-308); Glomerular Filtration Rate 311.3 mL/min (90-130); Glucose 192 mg/dL (65-115); Osmolality Calculated 296 mOsm/kg (285-295); Potassium 4.2 mmol/L (3.5-5.1); Sodium 139 mmol/L (136-145)
== END 2024-04-22 09:25 | disposition home or self-care (01) ==
LOC: LAB 09:27
PROVIDERS: PCP Registered Nurse; Visit Provider Thoracic Surgery (Cardiothoracic Vascular Surgery)
DX: M86.9 Osteomyelitis, unspecified (principal); L89.314 Pressure ulcer of right buttock, stage 4
CPT/HCPCS: 80048; 82550; 85025; 85651; 86140; 97597

== ENCOUNTER → 2024-05-06 10:24 | Outpatient (BNVA) | payer MEDICARE, MEDICAID, SELFPAY | PROVIDERS: PCP Registered Nurse; Visit Provider Thoracic Surgery (Cardiothoracic Vascular Surgery) | DX: L89.214 Pressure ulcer of right hip, stage 4 (principal); L89.313 Pressure ulcer of right buttock, stage 3; L89.152 Pressure ulcer of sacral region, stage 2 | CPT/HCPCS: 97597; A6446 ==

== ENCOUNTER → 2024-06-03 09:03 | Outpatient (BNVA) | payer MEDICARE, MEDICAID, SELFPAY | PROVIDERS: PCP Registered Nurse; Visit Provider Thoracic Surgery (Cardiothoracic Vascular Surgery) | DX: L89.214 Pressure ulcer of right hip, stage 4 (principal); L89.313 Pressure ulcer of right buttock, stage 3; L89.152 Pressure ulcer of sacral region, stage 2 | CPT/HCPCS: 97597 ==

== ENCOUNTER → 2024-06-16 10:13 | Outpatient (BNVA) | payer MEDICARE, MEDICAID, SELFPAY | PROVIDERS: PCP Registered Nurse; Visit Provider Thoracic Surgery (Cardiothoracic Vascular Surgery) | DX: T81.31XD Disruption of external operation (surgical) wound, not elsewhere classified, subsequent encounter (principal); Y83.8 Other surgical procedures as the cause of abnormal reaction of the patient, or of later complication, without mention of misadventure at the time of the procedure; L89.214 Pressure ulcer of right hip, stage 4; L89.152 Pressure ulcer of sacral region, stage 2 | CPT/HCPCS: 97597 ==

== ENCOUNTER → 2024-06-29 09:15 | Outpatient (BNVA) | payer MEDICARE, MEDICAID, SELFPAY | PROVIDERS: PCP Registered Nurse; Visit Provider Thoracic Surgery (Cardiothoracic Vascular Surgery) | DX: L89.214 Pressure ulcer of right hip, stage 4 (principal); L89.313 Pressure ulcer of right buttock, stage 3; L89.152 Pressure ulcer of sacral region, stage 2 | CPT/HCPCS: 97597 ==

== ENCOUNTER → 2024-07-13 10:15 | Outpatient (BNVA) | payer MEDICARE, MEDICAID, SELFPAY | PROVIDERS: PCP Registered Nurse; Visit Provider Thoracic Surgery (Cardiothoracic Vascular Surgery) | DX: L89.214 Pressure ulcer of right hip, stage 4 (principal); L89.313 Pressure ulcer of right buttock, stage 3; L89.152 Pressure ulcer of sacral region, stage 2 | CPT/HCPCS: 97597 ==

== ENCOUNTER 2024-07-15 10:19 | Observation (INO) | payer MEDICARE, MEDICAID, SELFPAY ==
[2024-07-15] VITALS (18 sets, daily range): BP systolic 100–194; BP diastolic 62–102; PULSE 71–119; RESP 14–19; TEMP 36.1–36.8; O2SAT 92–98; BMI 29.2
--- NOTE | 2024-07-15 10:38 | XR_ITS ---
WS: [id number] Examination: XR toe LT min 2V [id number] Reason for Exam: dog bite/amputation Date: 07/15/2024 Comparison: None. Findings: Overlying bandage obscures the fine detail. There is evidence of loss of the mid and distal phalanx of the left third toe as well as the head of the proximal phalanx, mid, and distal phalanx of the left second toe. Chronic deformity at the fourth proximal interphalangeal joint is identified. XR/XR toe LT min 2V [id number] Impression: Partial amputation involving the left second and third toes.
--- NOTE | 2024-07-15 10:39 | ED_ITS ---
Documented by User: TERA Bill 07/15/24 11:29 HPI - Extremity Injury (Lower) 2 General: Chief Complaint: Wound/Laceration Stated Complaint: dog bite, Left foot toes missing Time Seen by Provider: 07/15/24 10:28 Source: patient and family Mode of arrival: wheelchair Limitations: no limitations History of Present Illness: David Chen is a 54 year old male with a past medical history of CAD, chronic incomplete quadriplegia, chronic indwelling Olivas catheter, type 2 diabetes mellitus, hyperlipidemia, hypertension, history of neurogenic bladder, recurrent UTIs, sleep apnea, ischial osteomyelitis currently following up with wound care (right trochanteric, ischial, sacral wounds being addressed currently), and bound to motorized wheelchair here for partial amputations to left toes. Patient states he was dog sitting his sisters poodle and states the dog apparently used his toes as chew toys in the middle of the night. Due to patient's quadriplegia he has essentially no feeling in his feet or legs. Patient states he woke up this morning in a pile of blood . MD complaint: foot injury Onset (ago): hour(s) Injury: Left: toes Type of Injury: other (amputation) Place: home Severity: severe Relieving factors: nothing Exacerbating factors: nothing Context: other (dog bite) Other symptoms: none Related Data Home Medications Medication Instructions Recorded Confirmed albuterol sulfate 90 mcg/actuation 2 puff inhalation Q6H PRN 11/17/19 02/26/23 aerosol inhaler Shortness Of Breath amitriptyline 10 mg tablet 10 mg PO BID 11/17/19 02/26/23 ascorbate calcium (vitamin C) 500 500 mg PO BID 11/17/19 02/26/23 mg tablet aspirin 81 mg tablet,delayed 81 mg PO QAM 11/17/19 02/26/23 release (Adult Aspirin Regimen) atorvastatin 40 mg tablet 40 mg PO DAILY@16 11/17/19 02/26/23 baclofen 20 mg tablet See Rx Instructions .Route .COMPLEX 11/17/19 02/26/23 clopidogrel 75 mg tablet 75 mg PO QAM 11/17/19 02/26/23 fluticasone propionate 50 2 spray intranasal DAILY PRN 11/17/19 02/26/23 mcg/actuation nasal Allergy Symptoms spray,suspension (Flonase Allergy Relief) gabapentin 300 mg capsule 600 mg PO TID 11/17/19 02/26/23 methenamine hippurate 1 gram tablet 1 gm PO BID 11/17/19 02/26/23 paroxetine HCl 20 mg tablet 20 mg PO DAILY 11/17/19 02/26/23 Lactobacillus acidophilus and 1 cap PO BID 07/13/22 02/26/23 rhamnosus 15 billion cell capsule (Probiotic) cholecalciferol (vitamin D3) 25 25 mcg PO BEDTIME 07/13/22 02/26/23 mcg (1,000 unit) capsule (Vitamin D3) multivitamin 1 tab PO DAILY 07/13/22 02/26/23 vitamin A 2,400 mcg capsule 2,400 mcg PO BEDTIME 07/13/22 02/26/23 Blood Builder 1 tab PO DAILY@16 08/14/22 02/26/23 bupropion HCl 150 mg tablet,12 hr 150 mg PO BID 08/14/22 02/26/23 sustained-release coenzyme Q10 100 mg capsule 100 mg PO BEDTIME 08/14/22 02/26/23 (CoQ-10) d-mannose 500 mg capsule 500 mg PO BID 08/14/22 02/26/23 esomeprazole magnesium 20 mg 20 mg PO DAILY 08/14/22 02/26/23 capsule,delayed release (Nexium) metformin 1,000 mg tablet 1,000 mg PO BID 08/14/22 02/26/23 calcium carb 333 mg-vit D3 133 1 tab PO BEDTIME 02/26/23 02/26/23 unit-mag ox 133 mg-zinc oxide 5 mg tab (Jevon Mag Zinc Plus D3) Previous Rx's Medication Instructions Recorded fluticasone fur. 100 mcg-umeclid 1 inh inhalation DAILY #60 ea 02/28/23 62.5 mcg-vilant 25 mcg inhalat.powder (Trelegy Ellipta) sodium hypochlorite 0.125 % 1 applic topical BID open wound 11/05/23 solution (Dakin's Solution) #473 mL levofloxacin 500 mg tablet 500 mg PO DAILY #14 tabs 11/13/23 hypochlorus acid 0.02 %-sod 2 spray topical DAILY #59 mL 12/07/23 hypochl-sod chl-elec. water topical spray clindamycin HCl 300 mg capsule 300 mg PO Q6H MRSA infection #60 04/29/24 caps levofloxacin 500 mg tablet 500 mg PO DAILY 2 weeks #14 tabs 06/03/24 Allergies Allergy/AdvReac Type Severity Reaction Status Date / Time Penicillins Allergy THROAT Verified 02/26/23 09:24 SWELLS SHUT Sulfa (Sulfonamide Allergy HIVES Verified 02/26/23 09:24 Antibiotics) linezolid [From Zyvox] AdvReac ADR-Cramping Verified 08/17/23 14:43 of the Muscles Review of Systems 2 Const: Denies: fever(s), chills, body aches, fatigue or malaise Card: Denies: chest pain Resp: Denies: dyspnea Musc: Reports: other (L toe amputations) Neuro: Reports: numbness in extremities (chronic) PFSH ED 2 PFSH: Medical History Scrotal abscess Sleep apnea Pressure ulcer of right buttock, stage 4 History of difficult intubation Went through tongue during emergency procedure History of cardiac arrest 2017 post heart attack, prolonged ventilation, trach, peg. 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 Roy along with I&D of right hemiscrotal abscess by Dr. Alberts History of percutaneous endoscopic gastrostomy History of tracheostomy subsequently removed, for prolonged ventilation History of percutaneous coronary intervention RCA Status post excisional debridement buttocks History of lumbar surgery History of cervical spinal surgery Family History Mother Hypertension Father Arthritis Other Pressure ulcer of right buttock, stage 4 Denies family history of Anesthesia complication Bleeding disorder Social History Smoking and tobacco/nicotine status: former use of tobacco/nicotine Alcohol intake: never Substance/Drug Use: never Caregiver/support person: Yes Lives independently: No Household members: significant other Marital status: Current occupational status: disabled Physical Exam 2 Const: COMMON NORMALS: no acute distress, patient oriented x3, no limitations and alert GENERAL APPEARANCE: cooperative ORIENTATION/CONSCIOUSNESS: Yes awake, Yes oriented to person, Yes oriented to place and Yes oriented to time Resp: COMMON NORMALS: normal respiratory effort and clear to auscultation bilaterally AUSCULTATION: clear to auscultation bilaterally Cardio: COMMON NORMALS: regular rhythm RATE: tachycardic RHYTHM: regular rhythm Extremity: NARRATIVE EXTREMITY EXAM: atrophy to bilateral legs GENERAL: Yes normal exam except as noted LEFT LOWER EXTREMITY: Yes foot & digits (partially amputated L 2-3 digits) Left foot and digits: Yes neurovascular exam (chronic sensory deficits ) Neuro: COMMON NORMALS: patient oriented x3 SENSORIUM/ORIENTATION: Yes alert, Yes oriented to person, Yes oriented to place and Yes oriented to time Course 2 Consultations: Consultation #1: Dr. Villalpando-will take to OR Consultation #2: Dr. Perales-accepts hospitalization Vital Signs: Vital signs: Vital Signs Temperature 97.2 F L 07/15/24 12:10 Pulse Rate 119 H 07/15/24 12:10 Respiratory Rate 16 07/15/24 12:10 Blood Pressure 116/70 07/15/24 12:10 Pulse Oximetry 97 07/15/24 12:10 Oxygen Delivery Me thod Room Air 07/15/24 12:10 MDM - Extremity Injury (Lower) Medical Decision Making Patient is a nice 54-year-old male with an extensive past medical history here for partial amputations to his left toes from a dog bite. Amputations will need to be debrided/amputated in the OR. Spoke to Dr. Villalpando who will consult on patient and take him to the OR. Dr. Perales will except hospitalization for further management of his other chronic conditions. Patient does have an anaphylactic allergy noted to penicillins thus Meropenem has been started for dog bite coverage. Medical Records I reviewed the patient's medical records. Lab Data 07/15/24 11:28 07/15/24 11:28 Radiology Impressions Toe X-Ray 07/15/24 10:38 Impression: Partial amputation involving the left second and third toes. Chest X-Ray 07/15/24 10:47 Impression: Chronic changes are present. I see no failure or dense consolidation. Laboratory Results WBC 11.99 10^3/uL (3.29-11.43) H 07/15/24 11:28 RBC 6.11 10^6/uL (3.85-5.65) H 07/15/24 11:28 Hgb 13.50 g/dL (11.27-16.99) 07/15/24 11:28 Hct 46.2 % (37-53) 07/15/24 11:28 MCV 75.6 fl (82-101) L 07/15/24 11:28 MCH 22.1 pg (27-33) L 07/15/24 11:28 MCHC 29.2 g/dL (30-55) L 07/15/24 11:28 RDW 21.9 % (12.1-15.1) H 07/15/24 11:28 Plt Count 364 10^3/cmm (157-399) 07/15/24 11:28 MPV 9.6 fL (7.4-10.4) 07/15/24 11:28 Neut % (Auto) 70.5 % 07/15/24 11:28 Lymph % (Auto) 15.8 % 07/15/24 11:28 Hutchinson % (Auto) 9.4 % 07/15/24 11:28 Eos % (Auto) 2.8 % 07/15/24 11:28 Baso % (Auto) 0.9 % 07/15/24 11:28 Neut # (Auto) 8.44 10^3/uL (1.8-7.7) H 07/15/24 11:28 Lymph # (Auto) 1.9 10^3/uL (0.8-4.8) 07/15/24 11:28 Hutchinson # (Auto) 1.1 10^3/uL (0.2-0.9) H 07/15/24 11:28 Eos # (Auto) 0.3 10^3/uL (0.0-0.8) 07/15/24 11:28 Baso # (Auto) 0.1 10^3/uL (0.0-0.1) 07/15/24 11:28 Nucleated RBC % (auto) 0 % 07/15/24 11:28 Nucleated RBCs # 0.0 /100WBC 07/15/24 11:28 PT 12.20 SECONDS (12.1-14.9) 07/15/24 11:28 INR 0.88 (0.8-1.2) 07/15/24 11:28 APTT 30.3 SECONDS (23.9-36.7) 07/15/24 11:28 Sodium 138 mmol/L (136-145) 07/15/24 11:28 Potassium 4.8 mmol/L (3.5-5.1) 07/15/24 11:28 Chloride 98 mmol/L (98-107) 07/15/24 11:28 Carbon Dioxide 23 mmol/L (22-29) 07/15/24 11:28 Anion Gap 21.8 (5-19) H 07/15/24 11:28 BUN 24 mg/dL (6-20) H 07/15/24 11:28 Creatinine 0.4 mg/dL (0.7-1.2) L 07/15/24 11:28 GFR Calculation 223.3 mL/min (90-130) H 07/15/24 11:28 Glucose 182 mg/dL (65-115) H 07/15/24 11:28 POC Glucose 208 mg/dL (70-110) H 07/15/24 12:09 Calculated Osmolality 295 mOsm/kg (285-295) 07/15/24 11:28 Calcium 9.6 mg/dL (8.5-10.5) 07/15/24 11:28 Total Bilirubin 0.2 mg/dL (0.15-1.2) 07/15/24 11:28 AST 24 U/L (0-40) 07/15/24 11:28 ALT 31 U/L (0-41) 07/15/24 11:28 Alkaline Phosphatase 129 U/L (40-130) 07/15/24 11:28 Total Protein 7.7 g/dL (6.6-8.7) 07/15/24 11:28 Albumin 4.5 g/dL (3.5-5.2) 07/15/24 11:28 Globulin 3.2 g/dL (1.3-4.6) 07/15/24 11:28 Blood Type O Positive 07/15/24 11:28 Rho(D) Type Rh positive 07/15/24 11:28 Antibody Screen Negative 07/15/24 11:28 All radiology interpretation(s) finalized by discharge Discharge Plan Discharge Patient Disposition: Admitted As Inpatient Admit Provider: David Villalpando Clinical Impression: Dog bite of toe Qualifiers: Encounter type: initial encounter Qualified Code(s): S91.159A - Open bite of unspecified toe(s) without damage to nail, initial encounter 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 Qualifiers: Encounter type: initial encounter Qualified Code(s): S98.222A - Partial traumatic amputation of two or more left lesser toes, initial encounter Condition: Stable Coding Level of Care Code ED Community Engagement Specialist for Chg Fwd Documented by User: Raul Pearson DO 07/15/24 13:32 HPI - Extremity Injury (Lower) 2 General: Chief Complaint: Wound/Laceration Stated Complaint: dog bite, Left foot toes missing Time Seen by Provider: 07/15/24 10:28 Related Data Home Medications Medication Instructions Recorded Confirmed albuterol sulfate 90 mcg/actuation 2 puff inhalation Q6H PRN 11/17/19 02/26/23 aerosol inhaler Shortness Of Breath amitriptyline 10 mg tablet 10 mg PO BID 11/17/19 02/26/23 ascorbate calcium (vitamin C) 500 500 mg PO BID 11/17/19 02/26/23 mg tablet aspirin 81 mg tablet,delayed 81 mg PO QAM 11/17/19 02/26/23 release (Adult Aspirin Regimen) atorvastatin 40 mg tablet 40 mg PO DAILY@16 11/17/19 02/26/23 baclofen 20 mg tablet See Rx Instructions .Route .COMPLEX 11/17/19 02/26/23 clopidogrel 75 mg tablet 75 mg PO QAM 11/17/19 02/26/23 fluticasone propionate 50 2 spray intranasal DAILY PRN 11/17/19 02/26/23 mcg/actuation nasal Allergy Symptoms spray,suspension (Flonase Allergy Relief) gabapentin 300 mg capsule 600 mg PO TID 11/17/19 02/26/23 methenamine hippurate 1 gram tablet 1 gm PO BID 11/17/19 02/26/23 paroxetine HCl 20 mg tablet 20 mg PO DAILY 11/17/19 02/26/23 Lactobacillus acidophilus and 1 cap PO BID 07/13/22 02/26/23 rhamnosus 15 billion cell capsule (Probiotic) cholecalciferol (vitamin D3) 25 25 mcg PO BEDTIME 07/13/22 02/26/23 mcg (1,000 unit) capsule (Vitamin D3) multivitamin 1 tab PO DAILY 07/13/22 02/26/23 vitamin A 2,400 mcg capsule 2,400 mcg PO BEDTIME 07/13/22 02/26/23 Blood Builder 1 tab PO DAILY@16 08/14/22 02/26/23 bupropion HCl 150 mg tablet,12 hr 150 mg PO BID 08/14/22 02/26/23 sustained-release coenzyme Q10 100 mg capsule 100 mg PO BEDTIME 08/14/22 02/26/23 (CoQ-10) d-mannose 500 mg capsule 500 mg PO BID 08/14/22 02/26/23 esomeprazole magnesium 20 mg 20 mg PO DAILY 08/14/22 02/26/23 capsule,delayed release (Nexium) metformin 1,000 mg tablet 1,000 mg PO BID 08/14/22 02/26/23 calcium carb 333 mg-vit D3 133 1 tab PO BEDTIME 02/26/23 02/26/23 unit-mag ox 133 mg-zinc oxide 5 mg tab (Jevon Mag Zinc Plus D3) Previous Rx's Medication Instructions Recorded fluticasone fur. 100 mcg-umeclid 1 inh inhalation DAILY #60 ea 02/28/23 62.5 mcg-vilant 25 mcg inhalat.powder (Trelegy Ellipta) sodium hypochlorite 0.125 % 1 applic topical BID open wound 11/05/23 solution (Dakin's Solution) #473 mL levofloxacin 500 mg tablet 500 mg PO DAILY #14 tabs 11/13/23 hypochlorus acid 0.02 %-sod 2 spray topical DAILY #59 mL 12/07/23 hypochl-sod chl-elec. water topical spray clindamycin HCl 300 mg capsule 300 mg PO Q6H MRSA infection #60 03/07/24 caps levofloxacin 500 mg tablet 500 mg PO DAILY 2 weeks #14 tabs 06/03/24 Allergies Allergy/AdvReac Type Severity Reaction Status Date / Time Penicillins Allergy THROAT Verified 02/26/23 09:24 SWELLS SHUT Sulfa (Sulfonamide Allergy HIVES Verified 02/26/23 09:24 Antibiotics) linezolid [From Zyvox] AdvReac ADR-Cramping Verified 08/17/23 14:43 of the Muscles [facility] ED 2 [facility]: Medical History Scrotal abscess Sleep apnea Pressure ulcer of right buttock, stage 4 History of difficult intubation Went through tongue during emergency procedure History of cardiac arrest 2017 post heart attack, prolonged ventilation, trach, peg. 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 Roy along with I&D of right hemiscrotal abscess by Dr. Alberts History of percutaneous endoscopic gastrostomy History of tracheostomy subsequently removed, for prolonged ventilation History of percutaneous coronary intervention RCA Status post excisional debridement buttocks History of lumbar surgery History of cervical spinal surgery Family History Mother Hypertension Father Arthritis Other Pressure ulcer of right buttock, stage 4 Denies family history of Anesthesia complication Bleeding disorder Social History Smoking and tobacco/nicotine status: former use of tobacco/nicotine Alcohol intake: never Substance/Drug Use: never Caregiver/support person: Yes Lives independently: No Household members: significant other Marital status: Current occupational status: disabled Course 2 Vital Signs: Vital signs: Vital Signs Temperature 97.2 F L 07/15/24 12:10 Pulse Rate 119 H 07/15/24 12:10 Respiratory Rate 16 07/15/24 12:10 Blood Pressure 116/70 07/15/24 12:10 Pulse Oximetry 97 07/15/24 12:10 Oxygen Delivery Me thod Room Air 07/15/24 12:10 MDM - Extremity Injury (Lower) Medical Decision Making Patient is a nice 54-year-old male with an extensive past medical history here for partial amputations to his left toes from a dog bite. Amputations will need to be debrided/amputated in the OR. Spoke to Dr. Villalpando who will consult on patient and take him to the OR. Dr. Perales will except hospitalization for further management of his other chronic conditions. Patient does have an anaphylactic allergy noted to penicillins thus Meropenem has been started for dog bite coverage. Chart reviewed and patient discussed with midlevel. Agree with assessment and plan. Lab Data 07/15/24 11:28 07/15/24 11:28 Radiology Impressions Toe X-Ray 07/15/24 10:38 Impression: Partial amputation involving the left second and third toes. Chest X-Ray 07/15/24 10:47 Impression: Chronic changes are present. I see no failure or dense consolidation. Laboratory Results WBC 11.99 10^3/uL (3.29-11.43) H 07/15/24 11:28 RBC 6.11 10^6/uL (3.85-5.65) H 07/15/24 11:28 Hgb 13.50 g/dL (11.27-16.99) 07/15/24 11:28 Hct 46.2 % (37-53) 07/15/24 11:28 MCV 75.6 fl (82-101) L 07/15/24 11:28 MCH 22.1 pg (27-33) L 07/15/24 11:28 MCHC 29.2 g/dL (30-55) L 07/15/24 11:28 RDW 21.9 % (12.1-15.1) H 07/15/24 11:28 Plt Count 364 10^3/cmm (157-399) 07/15/24 11:28 MPV 9.6 fL (7.4-10.4) 07/15/24 11:28 Neut % (Auto) 70.5 % 07/15/24 11:28 Lymph % (Auto) 15.8 % 07/15/24 11:28 Hutchinson % (Auto) 9.4 % 07/15/24 11:28 Eos % (Auto) 2.8 % 07/15/24 11:28 Baso % (Auto) 0.9 % 07/15/24 11:28 Neut # (Auto) 8.44 10^3/uL (1.8-7.7) H 07/15/24 11:28 Lymph # (Auto) 1.9 10^3/uL (0.8-4.8) 07/15/24 11:28 Hutchinson # (Auto) 1.1 10^3/uL (0.2-0.9) H 07/15/24 11:28 Eos # (Auto) 0.3 10^3/uL (0.0-0.8) 07/15/24 11:28 Baso # (Auto) 0.1 10^3/uL (0.0-0.1) 07/15/24 11:28 Nucleated RBC % (auto) 0 % 07/15/24 11:28 Nucleated RBCs # 0.0 /100WBC 07/15/24 11:28 PT 12.20 SECONDS (12.1-14.9) 07/15/24 11:28 INR 0.88 (0.8-1.2) 07/15/24 11:28 APTT 30.3 SECONDS (23.9-36.7) 07/15/24 11:28 Sodium 138 mmol/L (136-145) 07/15/24 11:28 Potassium 4.8 mmol/L (3.5-5.1) 07/15/24 11:28 Chloride 98 mmol/L (98-107) 07/15/24 11:28 Carbon Dioxide 23 mmol/L (22-29) 07/15/24 11:28 Anion Gap 21.8 (5-19) H 07/15/24 11:28 BUN 24 mg/dL (6-20) H 07/15/24 11:28 Creatinine 0.4 mg/dL (0.7-1.2) L 07/15/24 11:28 GFR Calculation 223.3 mL/min (90-130) H 07/15/24 11:28 Glucose 182 mg/dL (65-115) H 07/15/24 11:28 POC Glucose 208 mg/dL (70-110) H 07/15/24 12:09 Calculated Osmolality 295 mOsm/kg (285-295) 07/15/24 11:28 Calcium 9.6 mg/dL (8.5-10.5) 07/15/24 11:28 Total Bilirubin 0.2 mg/dL (0.15-1.2) 07/15/24 11:28 AST 24 U/L (0-40) 07/15/24 11:28 ALT 31 U/L (0-41) 07/15/24 11:28 Alkaline Phosphatase 129 U/L (40-130) 07/15/24 11:28 Total Protein 7.7 g/dL (6.6-8.7) 07/15/24 11:28 Albumin 4.5 g/dL (3.5-5.2) 07/15/24 11:28 Globulin 3.2 g/dL (1.3-4.6) 07/15/24 11:28 Blood Type O Positive 07/15/24 11:28 Rho(D) Type Rh positive 07/15/24 11:28 Antibody Screen Negative 07/15/24 11:28 Discharge Plan Discharge Patient Disposition: Admitted As Inpatient Admit Provider: David Villalpando Clinical Impression: Dog bite of toe Qualifiers: Encounter type: initial encounter Qualified Code(s): S91.159A - Open bite of unspecified toe(s) without damage to nail, initial encounter 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 Qualifiers: Encounter type: initial encounter Qualified Code(s): S98.222A - Partial traumatic amputation of two or more left lesser toes, initial encounter Condition: Stable Coding Level of Care Code ED Community Engagement Specialist for Johnny Smart
--- NOTE | 2024-07-15 10:47 | XR_ITS ---
WS: [id number] Examination: XR chest 1V portable [id number] Reason for Exam: admission Date: 07/15/2024 Comparison: 02/27/2023 Findings: The heart is not enlarged. The mediastinum is not widened. The lungs are hyperinflated There is no edema or pleural effusion No dense consolidation is identified. Minimal linear scarring in the left base is suspected. Old left rib deformities are identified. Previous surgical changes to the lower cervical spine are no shane. XR/XR chest 1V portable [id number] Impression: Chronic changes are present. I see no failure or dense consolidation.
--- NOTE | 2024-07-15 11:16 | PC.NURSE ---
this nurse assumed pt care at 1105.
--- NOTE | 2024-07-15 11:23 | PM.HP ---
Providers/Chief Complaint Primary Care Provider: Emelia Martínez Chief Complaint: dog bite, Left foot toes missing History of Present Illness David Chen is a 54 year old male with past medical history of CAD, C5-C6 injury causing incomplete quadriplegia, sleep apnea, diabetes, pressure ulcers of sacral area, hypertension, hyperlipidemia, urinary retention, neurogenic bladder with chronic indwelling catheter, iron deficiency anemia presented to the hospital today after a dog he was dog sitting showed on his foot all night and tore off a few of his toes. He is bound to motorized wheelchair and has partial amputations to left toes. Patient states his feet had fungal growth and the dog chewed on his feet all night and when he woke up he was in a puddle of blood. Otherwise stable with his chronic medical conditions. Denies nausea vomiting diarrhea constipation, chest pain, shortness of breath or any other medical problems at this time. He does state he has chronic sacral pressure wounds for which he sees Dr. Roy. Patient was seen after his operative procedure for amputation of left toes with podiatry. He was taken to the OR immediately after arrival to ER. Medications/Allergies Home Medications Medication Instructions Recorded Confirmed Last Taken Type albuterol sulfate 90 mcg/actuation 2 puff inhalation Q6H PRN 11/17/19 02/26/23 02/25/23 History aerosol inhaler Shortness Of Breath amitriptyline 10 mg tablet 10 mg PO BID 11/17/19 02/26/23 02/25/23 History ascorbate calcium (vitamin C) 500 500 mg PO BID 11/17/19 02/26/23 02/25/23 History mg tablet aspirin 81 mg tablet,delayed 81 mg PO QAM 11/17/19 02/26/23 02/25/23 History release (Adult Aspirin Regimen) atorvastatin 40 mg tablet 40 mg PO DAILY@16 11/17/19 02/26/23 02/25/23 History baclofen 20 mg tablet See Rx Instructions .Route .COMPLEX 11/17/19 02/26/23 02/25/23 History clopidogrel 75 mg tablet 75 mg PO QAM 11/17/19 02/26/23 02/25/23 History fluticasone propionate 50 2 spray intranasal DAILY PRN 11/17/19 02/26/23 02/25/23 History mcg/actuation nasal Allergy Symptoms spray,suspension (Flonase Allergy Relief) gabapentin 300 mg capsule 600 mg PO TID 11/17/19 02/26/23 02/25/23 History methenamine hippurate 1 gram tablet 1 gm PO BID 11/17/19 02/26/23 02/25/23 History paroxetine HCl 20 mg tablet 20 mg PO DAILY 11/17/19 02/26/23 02/25/23 History Lactobacillus acidophilus and 1 cap PO BID 07/13/22 02/26/23 02/25/23 History rhamnosus 15 billion cell capsule (Probiotic) cholecalciferol (vitamin D3) 25 25 mcg PO BEDTIME 07/13/22 02/26/23 02/25/23 History mcg (1,000 unit) capsule (Vitamin D3) multivitamin 1 tab PO DAILY 07/13/22 02/26/23 02/25/23 History vitamin A 2,400 mcg capsule 2,400 mcg PO BEDTIME 07/13/22 02/26/23 02/25/23 History Blood Builder 1 tab PO DAILY@16 08/14/22 02/26/23 3 Weeks Ago History ~02/05/23 bupropion HCl 150 mg tablet,12 hr 150 mg PO BID 08/14/22 02/26/23 02/25/23 History sustained-release coenzyme Q10 100 mg capsule 100 mg PO BEDTIME 08/14/22 02/26/23 02/25/23 History (CoQ-10) d-mannose 500 mg capsule 500 mg PO BID 08/14/22 02/26/23 02/25/23 History esomeprazole magnesium 20 mg 20 mg PO DAILY 08/14/22 02/26/23 02/25/23 History capsule,delayed release (Nexium) metformin 1,000 mg tablet 1,000 mg PO BID 08/14/22 02/26/23 02/25/23 History calcium carb 333 mg-vit D3 133 1 tab PO BEDTIME 02/26/23 02/26/23 02/25/23 History unit-mag ox 133 mg-zinc oxide 5 mg tab (Jevon Mag Zinc Plus D3) fluticasone fur. 100 mcg-umeclid 1 inh inhalation DAILY #60 ea 02/28/23 Unknown Rx 62.5 mcg-vilant 25 mcg inhalat.powder (Trelegy Ellipta) sodium hypochlorite 0.125 % 1 applic topical BID open wound 12/28/23 Unknown Rx solution (Dakin's Solution) #473 mL levofloxacin 500 mg tablet 500 mg PO DAILY #14 tabs 11/13/23 11/13/23 Unknown Rx hypochlorus acid 0.02 %-sod 2 spray topical DAILY #59 mL 12/07/23 12/07/23 Unknown Rx hypochl-sod chl-elec. water topical spray clindamycin HCl 300 mg capsule 300 mg PO Q6H MRSA infection #60 03/07/24 Unknown Rx caps levofloxacin 500 mg tablet 500 mg PO DAILY 2 weeks #14 tabs 06/03/24 06/03/24 Unknown Rx Allergies Allergy/AdvReac Type Severity Reaction Status Date / Time Penicillins Allergy THROAT Verified 02/26/23 09:24 SWELLS SHUT Sulfa (Sulfonamide Allergy HIVES Verified 02/26/23 09:24 Antibiotics) linezolid [From Zyvox] AdvReac ADR-Cramping Verified 08/17/23 14:43 of the Muscles PFSH Acute PFSH: Medical History (Updated 07/15/24 @ 19:07 by Cyndy Perales MD) Wheelchair dependent Diabetes no insulin Hypertension 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 Roy along with I&D of right hemiscrotal abscess by Dr. Alberts History of percutaneous endoscopic gastrostomy History of tracheostomy subsequently removed, for prolonged ventilation History of percutaneous coronary intervention RCA Status post excisional debridement buttocks History of lumbar surgery History of cervical spinal surgery Family History Mother Hypertension Father Arthritis Other Pressure ulcer of right buttock, stage 4 Denies family history of Anesthesia complication Bleeding disorder Social History Smoking and tobacco/nicotine status: former use of tobacco/nicotine Alcohol intake: never Substance/Drug Use: never Caregiver/support person: Yes Lives independently: No Household members: significant other Marital status: Current occupational status: disabled Vitals/I&O/Wt Last Vital Signs Temp 98.2 F 07/15/24 10:27 Pulse 115 H 07/15/24 10:27 Resp 18 07/15/24 10:27 BP 101/67 07/15/24 10:27 Pulse Ox 98 07/15/24 10:27 O2 Del Method Room Air 07/15/24 10:27 Weight last 48 hrs Weight 95.254 kg Physical Exam Narrative: General: Alert oriented x3, patient seen laying in bed appearing comfortable at this time. HEENT: Normocephalic, atraumatic, EOMI, breathing room air. Cardio: Regular rate rhythm, normal S1-S2, Respiratory: Good bilateral air entry, no wheezes no rhonchi appreciated GI: Abdomen soft, nontender, nondistended, bowel sounds + Behavior: Appropriate and cooperative Extremities: Unable to move bilateral lower extremities which is chronic. Left foot wrapped in a bandage. Data 07/15/24 11:28 07/15/24 11:28 A&P Assessment and plan (1) Retention of urine due to occlusion of Olivas catheter: (2) Dog bite of toe: Qualifiers: Encounter type: initial encounter Qualified Code(s): S91.159A - Open bite of unspecified toe(s) without damage to nail, initial encounter; W54.0XXA - Bitten by dog, initial encounter (3) Sacral wound: (4) Diabetes: Qualifiers: Diabetes mellitus complication detail: with other skin ulcer Diabetes mellitus complication status: with skin complications Diabetes mellitus halfway insulin use: without halfway use Diabetes mellitus type: type 2 Qualified Code(s): E11.622 - Type 2 diabetes mellitus with other skin ulcer (5) Hypertension: Qualifiers: Hypertension type: primary hypertension Qualified Code(s): I10 - Essential (primary) hypertension (6) Wheelchair dependent: (7) 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: Qualifiers: Encounter type: initial encounter Qualified Code(s): S98.222A - Partial traumatic amputation of two or more left lesser toes, initial encounter (8) Quadriplegia: Plan #Trauma to left second and third toe secondary to a dog chewing on it Podiatry consulted. Patient taken the OR Underwent left foot second and third digit amputation at the level of metatarsophalangeal joint. No further surgical intervention by podiatry during this admission recommended at this time. Patient is a quadriplegic. Continue vancomycin and aztreonam at this time for broad-spectrum antibiotic coverage. Will discharge patient on clindamycin in AM. Check CBC CMP magnesium in AM. Continue normal saline 75 cc/mL. #Diabetes mellitus ? Insulin sliding scale moderate dose intensity ?Hold metformin at this time #All other chronic medical conditions stable at this time. : Continue home medications. #Chronic sacral wounds?follow-up with wound care as an outpatient. Attestations Medical Necessity Statement*: Less than 48-hour stay expected. 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
[2024-07-15 11:39] LABS: Basophils # 0.1 10^3/uL (0.0-0.1); Basophils % 0.9 %; Eosinophils # 0.3 10^3/uL (0.0-0.8); Eosinophils % 2.8 %; Hematocrit 46.2 % (37-53); Lymphocytes # 1.9 10^3/uL (0.8-4.8); Lymphocytes % 15.8 %; Mean Corpuscular HGB Conc 29.2 g/dL (30-55); Mean Corpuscular Hemoglobin 22.1 pg (27-33); Mean Corpuscular Volume 75.6 fl (82-101); Mean Platelet Volume 9.6 fL (7.4-10.4); Monocytes # 1.1 10^3/uL (0.2-0.9); Monocytes % 9.4 %; Neutrophils # 8.44 10^3/uL (1.8-7.7); Neutrophils % 70.5 %; Nucleated Red Blood Cells % 0 %; Platelet Count 364 10^3/cmm (157-399); Red Blood Count 6.11 10^6/uL (3.85-5.65); Red Cell Distribution Width 21.9 % (12.1-15.1); White Blood Count 11.99 10^3/uL (3.29-11.43)
[2024-07-15] MEDS: sodium chloride 0.9% 1,000 ML 999 ML IV (11:42)
[2024-07-15] MEDS: tetanus-dipt-pertussis 0.5 mL SDV IM (11:43)
[2024-07-15] MEDS: meropenem 1,000 mg SDV 1000 MG IVP (11:43)
[2024-07-15 11:59] LABS: Alanine Aminotransferase 31 U/L (0-41); Albumin Level 4.5 g/dL (3.5-5.2); Alkaline Phosphatase 129 U/L (40-130); Carbon Dioxide 23 mmol/L (22-29); Chloride 98 mmol/L (98-107); Globulin 3.2 g/dL (1.3-4.6); Glucose 182 mg/dL (65-115); Sodium 138 mmol/L (136-145); Total Bilirubin 0.2 mg/dL (0.15-1.2); Total Protein 7.7 g/dL (6.6-8.7)
[2024-07-15 12:00] LABS: INR 0.88 (0.8-1.2)
--- NOTE | 2024-07-15 12:00 | P.CONIM_ITS ---
Providers/Reason For Consult 2 Consulting Physician/Specialty*: Dr. David Villalpando, D.P.M./podiatry Reason for Consult*: Left foot second and third digit trauma Attending Physician: David Villalpando DPM Primary Care Provider: Emelia Martínez History of Present Illness History of Present Illness David Chen is a 54 year old male with history of type 2 diabetes, CAD, quadriplegia who presented to the emergency department for partial amputation of left foot second and third digits. Patient states that he is dog sitting his sisters poodle. During the night he states that the dog chewed on his toes. He did not notice this as he has no feeling in the feet or legs. Patient states he woke up this morning in a pile of blood to noticed that the tips of his toes had been eaten off by the dog. Review of Systems 2 General: Reports: 10 or more systems reviewed and unremarkable except in HPI and below Const: Denies: fever(s), chills, body aches or change in appetite Eyes: Denies: change in vision or blurry vision Card: Denies: chest pain, palpitations or irregular heart rhythm Resp: Denies: dyspnea GI: Denies: abdominal pain, nausea, vomiting or diarrhea Musc: Reports: joint stiffness Skin/Breast: Reports: non-healing lesions and lesions Neuro: Reports: numbness in extremities Medications/Allergies Home Medications Medication Instructions Recorded Confirmed Last Taken Type albuterol sulfate 90 mcg/actuation 2 puff inhalation Q6H PRN 11/17/19 02/26/23 02/25/23 History aerosol inhaler Shortness Of Breath amitriptyline 10 mg tablet 10 mg PO BID 11/17/19 02/26/23 02/25/23 History ascorbate calcium (vitamin C) 500 500 mg PO BID 11/17/19 02/26/23 02/25/23 History mg tablet aspirin 81 mg tablet,delayed 81 mg PO QAM 11/17/19 02/26/23 02/25/23 History release (Adult Aspirin Regimen) atorvastatin 40 mg tablet 40 mg PO DAILY@16 11/17/19 02/26/23 02/25/23 History baclofen 20 mg tablet See Rx Instructions .Route .COMPLEX 11/17/19 02/26/23 02/25/23 History clopidogrel 75 mg tablet 75 mg PO QAM 11/17/19 02/26/23 02/25/23 History fluticasone propionate 50 2 spray intranasal DAILY PRN 11/17/19 02/26/23 02/25/23 History mcg/actuation nasal Allergy Symptoms spray,suspension (Flonase Allergy Relief) gabapentin 300 mg capsule 600 mg PO TID 11/17/19 02/26/23 02/25/23 History methenamine hippurate 1 gram tablet 1 gm PO BID 11/17/19 02/26/23 02/25/23 History paroxetine HCl 20 mg tablet 20 mg PO DAILY 11/17/19 02/26/23 02/25/23 History Lactobacillus acidophilus and 1 cap PO BID 07/13/22 02/26/23 02/25/23 History rhamnosus 15 billion cell capsule (Probiotic) cholecalciferol (vitamin D3) 25 25 mcg PO BEDTIME 07/13/22 02/26/23 02/25/23 History mcg (1,000 unit) capsule (Vitamin D3) multivitamin 1 tab PO DAILY 07/13/22 02/26/23 02/25/23 History vitamin A 2,400 mcg capsule 2,400 mcg PO BEDTIME 07/13/22 02/26/23 02/25/23 History Blood Builder 1 tab PO DAILY@16 08/14/22 02/26/23 3 Weeks Ago History ~02/05/23 bupropion HCl 150 mg tablet,12 hr 150 mg PO BID 08/14/22 02/26/23 02/25/23 History sustained-release coenzyme Q10 100 mg capsule 100 mg PO BEDTIME 08/14/22 02/26/23 02/25/23 History (CoQ-10) d-mannose 500 mg capsule 500 mg PO BID 08/14/22 02/26/23 02/25/23 History esomeprazole magnesium 20 mg 20 mg PO DAILY 08/14/22 02/26/23 02/25/23 History capsule,delayed release (Nexium) metformin 1,000 mg tablet 1,000 mg PO BID 08/14/22 02/26/23 02/25/23 History calcium carb 333 mg-vit D3 133 1 tab PO BEDTIME 02/26/23 02/26/23 02/25/23 History unit-mag ox 133 mg-zinc oxide 5 mg tab (Jevon Mag Zinc Plus D3) fluticasone fur. 100 mcg-umeclid 1 inh inhalation DAILY #60 ea 02/28/23 Unknown Rx 62.5 mcg-vilant 25 mcg inhalat.powder (Trelegy Ellipta) sodium hypochlorite 0.125 % 1 applic topical BID open wound 11/05/23 Unknown Rx solution (Dakin's Solution) #473 mL levofloxacin 500 mg tablet 500 mg PO DAILY #14 tabs 11/13/23 11/13/23 Unknown Rx hypochlorus acid 0.02 %-sod 2 spray topical DAILY #59 mL 12/07/23 12/07/23 Unknown Rx hypochl-sod chl-elec. water topical spray clindamycin HCl 300 mg capsule 300 mg PO Q6H MRSA infection #60 03/07/24 Unknown Rx caps levofloxacin 500 mg tablet 500 mg PO DAILY 2 weeks #14 tabs 06/03/24 06/03/24 Unknown Rx Allergies Allergy/AdvReac Type Severity Reaction Status Date / Time Penicillins Allergy THROAT Verified 02/26/23 09:24 SWELLS SHUT Sulfa (Sulfonamide Allergy HIVES Verified 02/26/23 09:24 Antibiotics) linezolid [From Zyvox] AdvReac ADR-Cramping Verified 08/17/23 14:43 of the Muscles PFSH Acute 2 PFSH: Medical History Scrotal abscess Sleep apnea Pressure ulcer of right buttock, stage 4 History of difficult intubation Went through tongue during emergency procedure History of cardiac arrest 2017 post heart attack, prolonged ventilation, trach, peg. 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 Roy along with I&D of right hemiscrotal abscess by Dr. Alberts History of percutaneous endoscopic gastrostomy History of tracheostomy subsequently removed, for prolonged ventilation History of percutaneous coronary intervention RCA Status post excisional debridement buttocks History of lumbar surgery History of cervical spinal surgery Family History Mother Hypertension Father Arthritis Other Pressure ulcer of right buttock, stage 4 Denies family history of Anesthesia complication Bleeding disorder Social History Smoking and tobacco/nicotine status: former use of tobacco/nicotine Alcohol intake: never Substance/Drug Use: never Caregiver/support person: Yes Lives independently: No Household members: significant other Marital status: Current occupational status: disabled Vitals/I&O/Wt Last Vital Signs Temp 98.2 F 07/15/24 10:27 Pulse 113 H 07/15/24 11:30 Resp 18 07/15/24 11:30 BP 101/75 07/15/24 11:30 Pulse Ox 97 07/15/24 11:30 O2 Del Method Room Air 07/15/24 11:30 Weight last 48 hrs Weight 210 lb Physical Exam 2 Narrative: BELOW IS A FOCUSED LOWER EXTREMITY EXAM GENERAL: A&O x 3 VASCULAR: DP/PT pulses palpable 2/4 with CFT intact, <3seconds to distal digits DERMATOLOGICAL: Skin turgor and temperature is within normal limits. Left foot second and third digit partial amputation with tendon and bone exposed MUSCULOSKELETAL: Partial amputation of left foot second and third digit. NEUROLOGICAL: Neurological sensation to the affected foot and ankle is present through L4-S1 dermatomes with no hyper/hypoesthesias, negative Tinel or Valleix's sign IMAGING: Three-view x-rays of left foot taken in emergency department were personally interpreted by me which show partial amputation of left foot second digit down to the level of neck of proximal phalanx as well as intermediate pads of third digit left foot. Data 07/15/24 11:28 07/15/24 11:28 Micro: Microbiology 07/15/24 11:31 Blood Culture - Preliminary Blood SPECIMEN COLLECTED 07/15/24 11:28 Blood Culture - Preliminary Blood SPECIMEN COLLECTED A&P Assessment and plan (1) 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: Qualifiers: Encounter type: initial encounter Qualified Code(s): S98.222A - Partial traumatic amputation of two or more left lesser toes, initial encounter (2) Dog bite of toe: Qualifiers: Encounter type: initial encounter Qualified Code(s): S91.159A - Open bite of unspecified toe(s) without damage to nail, initial encounter; W54.0XXA - Bitten by dog, initial encounter Plan -Traumatic amputation left second and third digit -Labs and vitals reviewed -VSS -Abx IV meropenem -Diet: Okay for diet -Patient underwent left foot second and third digit amputation at the level of the metatarsophalangeal joint. No further surgical intervention by podiatry during this admission -Pain Mgmt: Per admitting team -Weight bearing: Patient is quadriplegic -Dressings: Surgical dressing consisting of Xeroform, 4 x 4 gauze, ABD pad, Kerlix, Eliceo to remain clean, dry, intact -Continue current Abx therapy. Recommend discharge with clindamycin -Trend labs -Discharge plan: No further surgical intervention by podiatry. Plan to round on patient tomorrow morning 07/16/2024. The patient remained stable he will be okay to discharge home from podiatry standpoint with follow-up in the next week. Patient is also coming to [facility] for wound care for sacral wounds next week. If possible we will coordinate visits on the same day. -Podiatry will continue to round on patient daily and provide recommendations Coding Level of Care Code Acute Code for Chg Fwd Diagnoses 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 S98.222A Encounter type: initial encounter Dog bite of toe S91.159A; W54.0XXA Encounter type: initial encounter
[2024-07-15 12:01] LABS: Anion Gap 21.8 (5-19); Partial Thromboplastin Time 30.3 SECONDS (23.9-36.7); Potassium 4.8 mmol/L (3.5-5.1)
[2024-07-15 12:02] LABS: Aspartate Amino Transferase 24 U/L (0-40)
--- NOTE | 2024-07-15 12:04 | W.PM.OPSUD ---
Surgery/Procedure H&P Update DATE OF PROCEDURE: July 15, 2024 DATE H&P PERFORMED: 07/15/24 H&P UPDATE INFORMATION: I have reviewed H&P completed within last 30 days, I have examined patient prior to procedure, No changes to prior documentation and H&P is in [facility] [place] indicated PLANNED PROCEDURE: Operation Date: 07/15/24 13:10 Proposed Procedures p Amputation 2nd/3rd digit toes(Left) - David Villalpando DPM
[2024-07-15 12:12] LABS: Glucose Point of Care 208 mg/dL (70-110)
[2024-07-15 12:12] LABS: Calcium 9.6 mg/dL (8.5-10.5)
[2024-07-15 12:19] LABS: Blood Urea Nitrogen 24 mg/dL (6-20); Creatinine Clr Calc Pharmacy 245.7964; Glomerular Filtration Rate 223.3 mL/min (90-130); Osmolality Calculated 295 mOsm/kg (285-295)
[2024-07-15] MEDS: BUPivacaine 0.5% INJ 30 mL INJECTION (12:54)
--- NOTE | 2024-07-15 13:19 | W.PM.BPON ---
Date of procedure: 07/15/2024 Surgeon name: Lisa InfantePJamel Button Cutting Machine Operator(s) name(s): Anival Procedure(s) performed: Left foot second and third digit amputation Description of findings: Traumatic injury to left foot second and third digit Estimated blood loss: 5 cc Specimen(s) removed: Second and third digits left foot Post-operative diagnosis: Traumatic injury left foot second and third digit
--- NOTE | 2024-07-15 13:34 | P.PHAVANC_ITS ---
Vancomycin Goal - Goal Vancomycin Goal:: 10-15 mg/L Vancomycin Indication:: SSTI - Therapy Current therapy:: Other Antibiotic (AZTREONAM) Day of therpy:: Day []of [] . Actual body weight (kg): 210 lb [place] body weight: 75.3 kg Dosing weight (kg): 95.25 - Data Labs: WBC 11.99 10^3/uL (3.29-11.43) H 07/15/24 11:28 RBC 6.11 10^6/uL (3.85-5.65) H 07/15/24 11:28 Hgb 13.50 g/dL (11.27-16.99) 07/15/24 11:28 Hct 46.2 % (37-53) 07/15/24 11:28 MCV 75.6 fl (82-101) L 07/15/24 11:28 MCH 22.1 pg (27-33) L 07/15/24 11:28 MCHC 29.2 g/dL (30-55) L 07/15/24 11:28 RDW 21.9 % (12.1-15.1) H 07/15/24 11:28 Sodium 138 mmol/L (136-145) 07/15/24 11:28 Potassium 4.8 mmol/L (3.5-5.1) 07/15/24 11:28 Chloride 98 mmol/L (98-107) 07/15/24 11:28 Carbon Dioxide 23 mmol/L (22-29) 07/15/24 11:28 Anion Gap 21.8 (5-19) H 07/15/24 11:28 BUN 24 mg/dL (6-20) H 07/15/24 11:28 Creatinine 0.4 mg/dL (0.7-1.2) L 07/15/24 11:28 GFR Calculation 223.3 mL/min (90-130) H 07/15/24 11:28 Last dialysis session:: N/A Treatment plan:: new consult Regimen:: INITIAL DOSE 1750 MG Q8H Follow up:: WILL MONITOR RENAL FUNCTION AND CONTINUE TO FOLLOW UP DAILY. TROUGH TO BE SCHEDULED PRIOR TO 4TH DOSE.
--- NOTE | 2024-07-15 13:35 | P.OP_ITS ---
Operative Report Date of procedure: July 15, 2024 Pre-op diagnosis: 1. Traumatic partial amputation of left foot second and third digits Post-op diagnosis: Same Post-op findings: Partial amputation left foot second and third digit involving proximal phalanx of second digit and intermediate phalanx of third digit. Soft tissue was not adequate to close third digit without removing the proximal phalanx. Procedure done: 1. Left foot second digit amputation CPT 61083 2. Left foot third digit amputation CPT 65823 Specimens removed/disposition: Left foot second and third digits sent as permanent in formalin as surgical specimen. Surgeon: David Villalpando DPM Tie Tape Machine Operator: Anival Estimated blood loss: 5 cc 15 minutes Complications: None Findings: See above Procedure: Patient is a 54-year-old male who presented to the emergency department with traumatic partial amputation of left foot second and third digit secondary to dog bite. The extent of injury necessitates surgical washout with probable amputation. The patient has been n.p.o. since 7 AM this morning. Due to patient history of paraplegia we will proceed with local anesthesia only. The history has been reviewed and the consent form has been signed and is in the patient chart. Patient labs and imaging has been reviewed and is consistent with the diagnosis. The patient was brought into the operating room and left on the gurney in the supine position. Patient received antibiotics in the emergency department prior to arrival to the OR. A pneumatic tourniquet was placed about the left ankle. The operative extremity was then prepped and draped in the usual fashion. After prep the following procedure was performed. The tourniquet was inflated to 250 mmHg. Attention was directed to the left foot where partial imitation of the second and third digits was visualized with tendon and bone exposed. The site was irrigated and evaluated. It was determined that the most viable option was amputation of the second and third digit at the level of the metatarsophalangeal joint. Using a #15 blade. Full-thickness incision was made circumferentially around the base of the digits down to the level of metatarsophalangeal joint capsule. The second and third digits were disarticulated from the foot and passed from the operative field be sent as surgical specimen. The remaining tissue appeared healthy and viable. Site was irrigated with copious amounts of sterile saline. After irrigation, hemostasis was achieved via electrocautery. Next, attention was directed to closure. Amputation site was closed with 3-0 nylon in simple interrupted fashion. Tourniquet was let down and good hyperemic response was noted to all remaining digits of the left foot. Incision site was dressed with Xeroform, 4 x 4 gauze, ABD, Kerlix, Eliceo bandage. The patient tolerated the procedure and anesthesia well and without complication. The patient was transported from the operating room to the recovery room with vital signs stable and vascular status intact to all digits of the left foot. Thepatient was instructed to remain nonweightbearing to the operative extremity, to keep surgical dressing clean, dry and intact. The patient will be transferred back to the floor once anesthesia criteria is met. I will continue to round on and follow the patient in the inpatient setting and provide recommendations to stabilize the patient for discharge.
[2024-07-15] MEDS: sodium chloride 0.9% 1,000 ML 125 ML IV ×2 (14:11→22:05)
[2024-07-15] MEDS: vancomycin 1,750 MG/350 ML PIGGYBACK 175 MG IV ×2 (14:11→22:06)
[2024-07-15] MEDS: aztreonam 1,000 MG in sodium chloride 0.9% (plus) 50 ML 100 MG IV (14:11)
[2024-07-15 15:40] LABS: Charge for UA Resulting for Rev
[2024-07-15 16:31] LABS: Bilirubin Urine Negative (Negative); Blood Urine Negative (Negative); Glucose Urine UA Negative (Normal); Ketones Urine Negative (Negative); Leukocyte Esterase Urine 1+ (Negative); Nitrate Urine Positive (Negative); Protein Urine Negative (Negative); Urine Appearance Clear (CLEAR); Urine Color Yellow (Yellow); Urobilinogen Urine 0.2 mg/dL (Negative)
[2024-07-15 16:57] LABS: Specific Gravity, Urine 1.031 (1.005-1.030)
[2024-07-15 16:58] LABS: UA Manual Slide Review YES
[2024-07-15 16:59] LABS: Add Urine Culture? Yes; Bacteria Urine 1+ /hpf; Squamous Epithelial Cell Urine 0-4 /hpf (0-5)
[2024-07-15] MEDS: gabapentin 300 mg Capsule PO (23:35)
[2024-07-15] MEDS: baclofen 10 mg Tablet 20 MG PO (23:35)
[2024-07-16] MEDS: aztreonam 1,000 MG in sodium chloride 0.9% (plus) 50 ML 100 MG IV (00:35)
[2024-07-16 04:00] VITALS: BP 94/59; PULSE 76; RESP 18; TEMP 36.3; O2SAT 93
[2024-07-16 05:37] LABS: Basophils # 0.1 10^3/uL (0.0-0.1); Basophils % 0.6 %; Eosinophils # 0.3 10^3/uL (0.0-0.8); Eosinophils % 2.8 %; Hematocrit 36.6 % (37-53); Lymphocytes # 1.7 10^3/uL (0.8-4.8); Lymphocytes % 17.6 %; Mean Corpuscular HGB Conc 29.5 g/dL (30-55); Mean Corpuscular Hemoglobin 22.3 pg (27-33); Mean Corpuscular Volume 75.5 fl (82-101); Mean Platelet Volume 9.3 fL (7.4-10.4); Monocytes # 1.3 10^3/uL (0.2-0.9); Monocytes % 13.3 %; Neutrophils % 65.2 %; Nucleated Red Blood Cells % 0 %; Platelet Count 245 10^3/cmm (157-399); Red Blood Count 4.85 10^6/uL (3.85-5.65); White Blood Count 9.53 10^3/uL (3.29-11.43)
[2024-07-16 05:55] LABS: INR 1.03 (0.8-1.2)
[2024-07-16 06:01] LABS: Alanine Aminotransferase 21 U/L (0-41); Albumin Level 3.5 g/dL (3.5-5.2); Alkaline Phosphatase 93 U/L (40-130); Anion Gap 15.9 (5-19); Aspartate Amino Transferase 12 U/L (0-40); Blood Urea Nitrogen 14 mg/dL (6-20); Calcium 8.4 mg/dL (8.5-10.5); Carbon Dioxide 21 mmol/L (22-29); Chloride 106 mmol/L (98-107); Creatinine Clr Calc Pharmacy 331.5126; Globulin 2.8 g/dL (1.3-4.6); Glomerular Filtration Rate 311.3 mL/min (90-130); Glucose 175 mg/dL (65-115); Magnesium 1.7 mg/dL (1.7-2.3); Osmolality Calculated 293 mOsm/kg (285-295); Potassium 3.9 mmol/L (3.5-5.1); Sodium 139 mmol/L (136-145); Total Bilirubin 0.2 mg/dL (0.15-1.2); Total Protein 6.3 g/dL (6.6-8.7)
[2024-07-16 06:05] LABS: Procalcitonin 0.06 ng/mL (0-0.5)
[2024-07-16] MEDS: vancomycin 1,750 MG/350 ML PIGGYBACK 175 MG IV (06:11)
[2024-07-16] MEDS: sodium chloride 0.9% 1,000 ML 125 ML IV (06:12)
[2024-07-16 07:47] VITALS: BP 131/79; PULSE 82; RESP 18; TEMP 36.4; O2SAT 96
--- NOTE | 2024-07-16 08:21 | P.PN_ITS ---
Subjective 2 Subjective: Patient seen at bedside this morning. Doing well. No overnight events. Patient states that he is anxious to get out of the hospital as soon as possible today. He has a wedding that he needs to go to this afternoon. Vitals/I&O/Wt Last Vital Signs Temp 97.5 F L 07/16/24 07:47 Pulse 82 07/16/24 07:47 Resp 18 07/16/24 07:47 BP 131/79 07/16/24 07:47 Pulse Ox 96 07/16/24 07:47 O2 Del Method Room Air 07/16/24 07:47 07/15/24 07/16/24 07/16/24 22:59 06:59 14:59 Intake Total 2094.167 / 3167.500 1750 / 4917.500 Output Total 1050 / 1050 1400 / 2450 Balance 1044.167 / 2117.500 350 / 2467.500 Weight last 48 hrs Weight 215 lb 4.8 oz Weight 210 lb Weight 210 lb Physical Exam 2 Narrative: BELOW IS A FOCUSED LOWER EXTREMITY EXAM GENERAL: A&O x 3 VASCULAR: DP/PT pulses palpable 2/4 with CFT intact, <3seconds to distal digits DERMATOLOGICAL: Surgical dressing clean, dry, intact with no strikethrough noted MUSCULOSKELETAL: Status post second and third digit amputation left foot NEUROLOGICAL: Neurological sensation to the affected foot and ankle is present through L4-S1 dermatomes with no hyper/hypoesthesias, negative Tinel or Valleix's sign IMAGING: Three-view x-rays of left foot taken in emergency department were personally interpreted by me which show partial amputation of left foot second digit down to the level of neck of proximal phalanx as well as intermediate pads of third digit left foot. Data 07/16/24 04:55 07/16/24 04:55 Micro: Microbiology 07/15/24 11:31 Blood Culture - Preliminary Blood SPECIMEN COLLECTED 07/15/24 11:28 Blood Culture - Preliminary Blood SPECIMEN COLLECTED A&P Assessment and plan (1) 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: Qualifiers: Encounter type: initial encounter Qualified Code(s): S98.222A - Partial traumatic amputation of two or more left lesser toes, initial encounter (2) Dog bite of toe: Qualifiers: Encounter type: initial encounter Qualified Code(s): S91.159A - Open bite of unspecified toe(s) without damage to nail, initial encounter; W54.0XXA - Bitten by dog, initial encounter Plan -Traumatic amputation left second and third digit -Labs and vitals reviewed -VSS -Abx IV meropenem -Diet: Okay for diet -Patient underwent left foot second and third digit amputation at the level of the metatarsophalangeal joint. No further surgical intervention by podiatry during this admission -Pain Mgmt: Per admitting team -Weight bearing: Patient is quadriplegic -Dressings: Surgical dressing consisting of Xeroform, 4 x 4 gauze, ABD pad, Kerlix, Eliceo. Surgical dressing is to remain clean, dry, intact until follow-up next week -Continue current Abx therapy. Recommend discharge with clindamycin x 7 days with further recommendations to be made in the outpatient setting -Trend labs -Discharge plan: No further surgical intervention by podiatry. Patient is okay to discharge home from podiatry standpoint. Surgical dressing is to remain clean, dry, intact until follow-up next week with podiatry. Recommend 7-day course of clindamycin which will be further tailored in the outpatient setting as needed -Okay to discharge from podiatry standpoint Attestations 2 Medical Necessity Statement*: Dog bite to left foot second and third toes which resulted in partial amputation. This necessitated further surgical debridement in the form of amputation of second and third digits of the left foot. Coding Level of Care Code Acute Code for Chg Fwd Diagnoses 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 S98.222A Encounter type: initial encounter Dog bite of toe S91.159A; W54.0XXA Encounter type: initial encounter
[2024-07-16] MEDS: gabapentin 300 mg Capsule PO (08:31)
[2024-07-16 09:35] VITALS: PULSE 80; RESP 16; O2SAT 95
[2024-07-16 10:52] LABS: Glucose Point of Care 218 mg/dL (70-110)
--- NOTE | 2024-07-16 11:10 | PM.DCS ---
Discharge Providers Date of Admission: 07/15/24 13:13 Date of Discharge: July 16, 2024 Attending Provider at Admission: David Villalpando DPM Attending Provider at Discharge: David Villalpando DPM Consults: Podiatry Primary Care Provider: Emelia Martínez Diagnoses at Discharge Discharge Diagnosis (1) 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: Status: Acute Qualifiers: Encounter type: initial encounter Qualified Code(s): S98.222A - Partial traumatic amputation of two or more left lesser toes, initial encounter (2) Dog bite of toe: Status: Acute Qualifiers: Encounter type: initial encounter Qualified Code(s): S91.159A - Open bite of unspecified toe(s) without damage to nail, initial encounter; W54.0XXA - Bitten by dog, initial encounter Reason for Visit Reason for Visit: dog bite, Left foot toes missing Hospital Course Hospital Course David Chen is a very pleasant 54-year-old male with a past medical history significant for coronary artery disease, C5/C6 injury with resulting incomplete quadriplegia, sleep apnea, hypertension, hyperlipidemia, neurogenic bladder with chronic indwelling urinary catheter, and multiple other comorbidities who presented the emergency department with a foot wound secondary to dog chewing on foot overnight, found to have traumatic partial amputation of the left foot second and third digits secondary to dog bites. Podiatry was consulted and the underwent left foot third and fourth toe amputation. He was treated with IV antibiotics and rotated to clindamycin at discharge. He is to follow-up with podiatry and primary care for continued outpatient care. Physical Exam Narrative: General: Patient is awake and alert. Very pleasant. Conversational. Head: Normocephalic.EOM intact. Neck: No JVD. Cardiovascular: RRR. No gallops. No murmurs. Lungs: Clear to auscultation. No respiratory distress. Skin: No jaundice. No rashes. Abdomen: Normal bowel sounds. Nontender. Extremities: No cyanosis or clubbing. Left foot is wrapped. Neurological: No myoclonus. Discharge Data Studies Completed and Pending Completed Studies During Hospitalization Category Date Time Status XR chest 1V portable [id number] Stat Exams 07/15/24 10:47 Completed XR toe LT min 2V [id number] Stat Exams 07/15/24 10:38 Completed Pending at discharge Category Date Time Status Blood Culture Stat Lab 07/15/24 11:31 Results Lactic Sepsis W/Reflex Routine Lab 07/15/24 12:45 Uncollected Urine Culture Stat Lab 07/15/24 15:33 Received Vancomycin Trough Timed Lab 07/16/24 13:00 Ordered Pathology: Surgical [PTH] Routine Pth 07/15/24 13:04 Received Radiology Impressions Toe X-Ray 07/15/24 10:38 Impression: Partial amputation involving the left second and third toes. Chest X-Ray 07/15/24 10:47 Impression: Chronic changes are present. I see no failure or dense consolidation. Laboratory Results WBC 9.53 10^3/uL (3.29-11.43) 07/16/24 04:55 RBC 4.85 10^6/uL (3.85-5.65) 07/16/24 04:55 Hgb 10.80 g/dL (11.27-16.99) L 07/16/24 04:55 Hct 36.6 % (37-53) L 07/16/24 04:55 MCV 75.5 fl (82-101) L 07/16/24 04:55 MCH 22.3 pg (27-33) L 07/16/24 04:55 MCHC 29.5 g/dL (30-55) L 07/16/24 04:55 RDW 21.0 % (12.1-15.1) H 07/16/24 04:55 Plt Count 245 10^3/cmm (157-399) D 07/16/24 04:55 MPV 9.3 fL (7.4-10.4) 07/16/24 04:55 Neut % (Auto) 65.2 % 07/16/24 04:55 Lymph % (Auto) 17.6 % 07/16/24 04:55 [place] % (Auto) 13.3 % 07/16/24 04:55 Eos % (Auto) 2.8 % 07/16/24 04:55 Baso % (Auto) 0.6 % 07/16/24 04:55 Neut # (Auto) 6.20 10^3/uL (1.8-7.7) 07/16/24 04:55 Lymph # (Auto) 1.7 10^3/uL (0.8-4.8) 07/16/24 04:55 [place] # (Auto) 1.3 10^3/uL (0.2-0.9) H 07/16/24 04:55 Eos # (Auto) 0.3 10^3/uL (0.0-0.8) 07/16/24 04:55 Baso # (Auto) 0.1 10^3/uL (0.0-0.1) 07/16/24 04:55 Nucleated RBC % (auto) 0 % 07/16/24 04:55 Nucleated RBCs # 0.0 /100WBC 07/16/24 04:55 PT 13.80 SECONDS (12.1-14.9) 07/16/24 04:55 INR 1.03 (0.8-1.2) 07/16/24 04:55 APTT 30.3 SECONDS (23.9-36.7) 07/15/24 11:28 Sodium 139 mmol/L (136-145) 07/16/24 04:55 Potassium 3.9 mmol/L (3.5-5.1) 07/16/24 04:55 Chloride 106 mmol/L (98-107) 07/16/24 04:55 Carbon Dioxide 21 mmol/L (22-29) L 07/16/24 04:55 Anion Gap 15.9 (5-19) 07/16/24 04:55 BUN 14 mg/dL (6-20) 07/16/24 04:55 Creatinine 0.3 mg/dL (0.7-1.2) L 07/16/24 04:55 GFR Calculation 311.3 mL/min (90-130) H 07/16/24 04:55 Glucose 175 mg/dL (65-115) H 07/16/24 04:55 POC Glucose 218 mg/dL (70-110) H 07/16/24 10:32 Calculated Osmolality 293 mOsm/kg (285-295) 07/16/24 04:55 Calcium 8.4 mg/dL (8.5-10.5) L 07/16/24 04:55 Magnesium 1.7 mg/dL (1.7-2.3) 07/16/24 04:55 Total Bilirubin 0.2 mg/dL (0.15-1.2) 07/16/24 04:55 AST 12 U/L (0-40) 07/16/24 04:55 ALT 21 U/L (0-41) 07/16/24 04:55 Alkaline Phosphatase 93 U/L (40-130) 07/16/24 04:55 Total Protein 6.3 g/dL (6.6-8.7) L 07/16/24 04:55 Albumin 3.5 g/dL (3.5-5.2) 07/16/24 04:55 Globulin 2.8 g/dL (1.3-4.6) 07/16/24 04:55 Procalcitonin 0.06 ng/mL (0-0.5) 07/16/24 04:55 Urine Color Yellow (Yellow) 07/15/24 15:33 Urine Appearance Clear (CLEAR) 07/15/24 15:33 Urine pH 5.0 (5-7) 07/15/24 15:33 Ur Specific [place] 1.031 (1.005-1.030) H 07/15/24 15:33 Urine Protein Negative (Negative) 07/15/24 15:33 Urine Glucose (UA) Negative (Normal) 07/15/24 15:33 Urine Ketones Negative (Negative) 07/15/24 15:33 Urine Blood Negative (Negative) 07/15/24 15:33 Urine Nitrate Positive (Negative) A 07/15/24 15:33 Urine Bilirubin Negative (Negative) 07/15/24 15:33 Urine Urobilinogen 0.2 mg/dL (Negative) 07/15/24 15:33 Ur Leukocyte Esterase 1+ (Negative) A 07/15/24 15:33 Urine RBC None /hpf (0-2) 07/15/24 15:33 Urine WBC 10-15 /hpf (0-5) H 07/15/24 15:33 Ur Squamous Epith Cells 0-4 /hpf (0-5) H 07/15/24 15:33 Amorphous Sediment Not Reportable 07/15/24 15:33 Urine Bacteria 1+ /hpf (NONE) H 07/15/24 15:33 Urine Yeast 1+ /hpf H 07/15/24 15:33 Blood Type O Positive 07/15/24 11:28 Rho(D) Type Rh positive 07/15/24 11:28 Antibody Screen Negative 07/15/24 11:28 Procedures Performed 1. Left foot second digit amputation CPT 60772 2. Left foot third digit amputation CPT 97217 Vitals Last Vital Signs Temp 97.5 F L 07/16/24 07:47 Pulse 80 07/16/24 09:35 Resp 16 07/16/24 09:35 BP 131/79 07/16/24 07:47 Pulse Ox 95 07/16/24 09:35 O2 Del Method Room Air 07/16/24 09:35 Discharge Plan Discharge Patient Disposition: Home Condition: Stable Prescriptions: New clindamycin HCl 300 mg capsule 600 mg PO TID 7 Days Qty: 42 0RF Continued aspirin [Adult Aspirin Regimen] 81 mg tablet,delayed release (DR/EC) 81 mg PO QAM atorvastatin 40 mg tablet 40 mg PO DAILY@16 baclofen 20 mg tablet See Rx Instructions .ROUTE .COMPLEX PRN (Reason: Pain (Scale Score 4-6)) Rx Instructions: 2 TABS IN AM, 4 TABS@ 4PM, AND 3 TABS AT BEDTIME clopidogrel 75 mg tablet 75 mg PO QAM fluticasone propionate [Flonase Allergy Relief] 50 mcg/actuation spray,suspension 2 spray INTRANASAL DAILY PRN (Reason: Allergy Symptoms) gabapentin 300 mg capsule 600 mg PO TID methenamine hippurate 1 gram tablet 1 gm PO BID ascorbate calcium (vitamin C) 500 mg tablet 500 mg PO BID paroxetine HCl 20 mg tablet 20 mg PO DAILY amitriptyline 10 mg tablet 10 mg PO BID multivitamin Tablet 1 tab PO DAILY vitamin A 2,400 mcg Capsule 2,400 mcg PO BEDTIME cholecalciferol (vitamin D3) [Vitamin D3] 25 mcg (1,000 unit) Capsule 25 mcg PO BEDTIME Probiotic 15 billion cell Capsule 1 cap PO BID bupropion HCl 150 mg tablet sustained-release 12 hr 150 mg PO BID metformin 1,000 mg tablet 1,000 mg PO BID esomeprazole magnesium [Nexium] 20 mg Capsule,Delayed Release(Dr/Ec) 20 mg PO DAILY coenzyme Q10 [CoQ-10] 100 mg Capsule 100 mg PO BEDTIME d-mannose 500 mg Capsule 500 mg PO BID Jevon Mag Zinc Plus D3 333 mg-133 unit -133 mg-5 mg Tablet 1 tab PO BEDTIME Trelegy Ellipta 100-62.5-25 mcg blister with device 1 inh inhalation DAILY Qty: 60 0RF hypoc ac-sod hyp-NaCl-el water 0.02 % spray,non-aerosol 2 spray topical DAILY PRN (Reason: dryness) Rx Instructions: [place] Wound Plus Skin Discharge Orders: Discharge Order (Routine); Ordered 07/16/24 Ordered By: Samuel Godwin Referrals: David Villalpando DPM [Physician] - (We have notified your physician's clinic of the need for a follow-up appointment to be scheduled. If you have not heard from them within the next 2 business days, please call them directly. ) Emelia Martínez [Primary Care Provider] - 4-7 days (We have notified your physician's clinic of the need for a follow-up appointment to be scheduled. If you have not heard from them within the next 2 business days, please call them directly. ) Patient Instructions: Clindamycin (By mouth), Toe Amputation (DC), Opioid Safety Activity Restrictions/Additional Instructions: 1. Take medications as prescribed. 2. Follow-up wound care recommendations provided by surgery. 3. Follow-up with podiatry clinic. 4. Follow-up with primary care provider. Discharge Attestations Time Spent in Discharge Care*: greater than 30 min Status at Discharge: Cognitive status at discharge: cognitively intact, Behavioral status at discharge: cooperative, Quality Metrics Clinical Quality Measures [ No reported AMI, CVA or VTE this stay] Coding Level of Care Code Acute Code for Chg Fwd Diagnoses 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 S98.222A Encounter type: initial encounter Dog bite of toe S91.159A; W54.0XXA Encounter type: initial encounter
[2024-07-16 11:21] VITALS: BP 93/62; PULSE 83; RESP 18; TEMP 36.6; O2SAT 94
[2024-07-16 13:07] VITALS: BP 93/62; PULSE 83; RESP 18; TEMP 36.6; O2SAT 94
== END 2024-07-16 13:08 | disposition home or self-care (01) ==
LOC: ER 10:39 → OR 11:24 → MEDSURG 13:15
PROVIDERS: Internal Medicine; Admitting Provider Podiatrist Foot & Ankle Surgery; Emergency Provider Physician Assistant; PCP Registered Nurse; Visit Provider Podiatrist Foot & Ankle Surgery
PROC: (CPT 28820; principal; 2024-07-15 13:00)
DX: S98.222A Partial traumatic amputation of two or more left lesser toes, initial encounter (principal); W54.0XXA Bitten by dog, initial encounter; I25.10 Atherosclerotic heart disease of native coronary artery without angina pectoris; G47.30 Sleep apnea, unspecified; I10 Essential (primary) hypertension; E78.5 Hyperlipidemia, unspecified; E11.9 Type 2 diabetes mellitus without complications; Z87.891 Personal history of nicotine dependence; G82.54 Quadriplegia, C5-C7 incomplete
CPT/HCPCS: 28820 ×2; 36415; 36416; 71045; 73660; 80053; 81003; 81015; 82962; 83735; 84145; 85025; 85610; 85730; 86850; 86900; 87040; 87086; 88305; 88311; 90471; 90715; 94664; 96365; 96366; 96367; 96375; 99285; G0378; J2185; J3372; J3490; J7030

== ENCOUNTER → 2024-07-20 14:43 | Outpatient (BNVA) | payer MEDICARE, MEDICAID, SELFPAY | PROVIDERS: PCP Registered Nurse; Visit Provider Podiatrist Foot & Ankle Surgery | DX: S98.222A Partial traumatic amputation of two or more left lesser toes, initial encounter (principal); W54.0XXA Bitten by dog, initial encounter; E11.622 Type 2 diabetes mellitus with other skin ulcer; Z79.84 Long term (current) use of oral hypoglycemic drugs | CPT/HCPCS: 99024; A6222 ==

== ENCOUNTER → 2024-07-27 13:15 | Outpatient (BNVA) | payer MEDICARE, MEDICAID, SELFPAY | PROVIDERS: PCP Registered Nurse; Visit Provider Thoracic Surgery (Cardiothoracic Vascular Surgery) | DX: L89.214 Pressure ulcer of right hip, stage 4 (principal); L89.313 Pressure ulcer of right buttock, stage 3; L89.152 Pressure ulcer of sacral region, stage 2; S98.222A Partial traumatic amputation of two or more left lesser toes, initial encounter; W54.0XXA Bitten by dog, initial encounter; E11.622 Type 2 diabetes mellitus with other skin ulcer; Z79.84 Long term (current) use of oral hypoglycemic drugs | CPT/HCPCS: 97597; 99213; A6021 ==

== ENCOUNTER → 2024-08-09 14:00 | Outpatient (BNVA) | payer MEDICARE, MEDICAID, SELFPAY | PROVIDERS: PCP Registered Nurse; Visit Provider Thoracic Surgery (Cardiothoracic Vascular Surgery) | DX: L89.214 Pressure ulcer of right hip, stage 4 (principal); L89.313 Pressure ulcer of right buttock, stage 3; L89.152 Pressure ulcer of sacral region, stage 2 | CPT/HCPCS: 97597 ==

== ENCOUNTER → 2024-08-23 13:54 | Outpatient (BNVA) | payer MEDICARE, MEDICAID, SELFPAY | PROVIDERS: PCP Registered Nurse; Visit Provider Thoracic Surgery (Cardiothoracic Vascular Surgery) | DX: L89.214 Pressure ulcer of right hip, stage 4 (principal); I96 Gangrene, not elsewhere classified; L89.313 Pressure ulcer of right buttock, stage 3; L89.152 Pressure ulcer of sacral region, stage 2 | CPT/HCPCS: 97597; A6021 ==

== ENCOUNTER → 2024-09-06 14:00 | Outpatient (BNVA) | payer MEDICARE, MEDICAID, SELFPAY | PROVIDERS: PCP Registered Nurse; Visit Provider Thoracic Surgery (Cardiothoracic Vascular Surgery) | DX: I96 Gangrene, not elsewhere classified (principal); L89.313 Pressure ulcer of right buttock, stage 3; L89.152 Pressure ulcer of sacral region, stage 2; L89.214 Pressure ulcer of right hip, stage 4 | CPT/HCPCS: 97597; A6021; A6220 ==

== ENCOUNTER → 2024-09-20 13:58 | Outpatient (BNVA) | payer MEDICARE, MEDICAID, SELFPAY | PROVIDERS: PCP Registered Nurse; Visit Provider Thoracic Surgery (Cardiothoracic Vascular Surgery) | DX: L89.154 Pressure ulcer of sacral region, stage 4 (principal); L89.214 Pressure ulcer of right hip, stage 4; L89.313 Pressure ulcer of right buttock, stage 3 | CPT/HCPCS: 11044; 87070; 87176; 87205; 97597 ==

== ENCOUNTER → 2024-09-27 15:01 | Outpatient (BNVA) | payer MEDICARE, MEDICAID, SELFPAY | PROVIDERS: PCP Registered Nurse; Visit Provider Thoracic Surgery (Cardiothoracic Vascular Surgery) | DX: L89.154 Pressure ulcer of sacral region, stage 4 (principal); L89.214 Pressure ulcer of right hip, stage 4; L89.313 Pressure ulcer of right buttock, stage 3 | CPT/HCPCS: 80053; 84134; 85025; 86140; 97597 ==

== ENCOUNTER 2024-10-11 08:30 | Outpatient (CLI) | payer MEDICARE, MEDICAID, SELFPAY ==
--- NOTE | 2024-10-11 08:30 | CT_ITS ---
WS: [id number] CT ABDOMEN AND PELVIS WITH CONTRAST HISTORY: R/O SACRAL osteomyelitis. TECHNIQUE: Imaging performed of the abdomen and pelvis with IV contrast. Single phase imaging of the abdomen. Coronal and sagittal reformats are submitted. All CT scans at [facility] use at [facility] [address] one of these dose optimization techniques: automated exposure control; mA and/or kV adjustment per patient size (includes targeted exams where dose is matched to clinical indication); or iterative re construction. IV CONTRAST: Omnipaque 350; 100 mL IV. Oral contrast: No DLP: 787.56 mGy.cm COMPARISON: 11/05/2023, 08/11/2022 Lower thorax: Subsegmental atelectasis at the LEFT lung base. Atelectasis has increased since 2021. H eart is normal size. Small hiatal hernia. Liver/biliary system: Normal size with no intrahepatic dilatation. Gallbladder: Normal. No gallstones or wall thickening. No pericholecystic fluid. Pancreas: Normal size pancreas and pancreatic duct. No adjacent inflammation. Spleen: Normal size spleen. No mass or infarct. Adrenal glands: Normal. Right kidney: Normal size kidney with no obstruction. Tiny, too small to characterize cortical hypode nsities. Left kidney: Normal. Aorta: Mild atherosclerosis with no aneurysm. Normal position of the IVC filter. Lymphadenopathy: None. Free fluid: None. GI tract: Stomach is well distended with fluid. No small bowel obstruction. Mild diffuse constipation . Normal appendix. Abdominal wall: Unremarkable abdominal wall. No hernia. Pelvis: No free fluid or adenopathy within the pelvis. Large, [place] RIGHT sacral decubitus ulcer extends to the ischial tuberosity. Air-filled decubitus ulcer extends to the ischial tuberosity. Sclerotic changes at the RIGHT ischial tuberosity are simil ar to the prior study. There is no lucency or progression. There is an additional decubitus ulcer containing air along the posterior mid sacrum at the coccygeal junction. Mild progression of the decubitus ulcer tract which extends into the presacral space. Ther e is no contact on the rectum. The amount of air has increased at the sacral decubitus ulcer tract. N o definite osteomyelitis. There is an abrupt termination at the sacrococcygeal junction which is prob ably postsurgical. Bones: Abnormal hip joints. Extensive calcifications around the hips are probably dystrophic calcific ations which are stable. CT/CT abdomen pelvis w con* [id number] IMPRESSION: 1. Large, [place] RIGHT sacral decubitus ulcer extending to the ischial tube rosity is unchanged. No obvious progression of sclerosis or lucency suggesting an acute infection. 2. Additional decubitus ulcer over the central sacrococcygeal junction. The di stal sacrum with an abrupt termination is consistent with a prior resection of the coccyx. The decubitus ulcer track appears progressed and contains more air as compared to 11/05/2023 but no obvious osteomyelitis. 3. Extensive dystrophic calcifications at the hips.
[2024-10-11] MEDS: iohexol 350 mg/mL 500 mL Btl (per mL) IV (08:59)
== END 2024-10-11 08:37 | disposition home or self-care (01) ==
PROVIDERS: PCP Registered Nurse; Visit Provider Thoracic Surgery (Cardiothoracic Vascular Surgery)
DX: L89.154 Pressure ulcer of sacral region, stage 4 (principal); L89.159 Pressure ulcer of sacral region, unspecified stage; E11.622 Type 2 diabetes mellitus with other skin ulcer; M89.8X7 Other specified disorders of bone, ankle and foot; J98.11 Atelectasis; K44.9 Diaphragmatic hernia without obstruction or gangrene; Z99.3 Dependence on wheelchair; L89.313 Pressure ulcer of right buttock, stage 3; L89.214 Pressure ulcer of right hip, stage 4
CPT/HCPCS: 11042; 74177

== ENCOUNTER → 2024-10-25 14:00 | Outpatient (BNVA) | payer MEDICARE, MEDICAID, SELFPAY | PROVIDERS: PCP Registered Nurse; Visit Provider Thoracic Surgery (Cardiothoracic Vascular Surgery) | DX: I96 Gangrene, not elsewhere classified (principal); L89.154 Pressure ulcer of sacral region, stage 4; L89.214 Pressure ulcer of right hip, stage 4; L89.312 Pressure ulcer of right buttock, stage 2 | CPT/HCPCS: 97597 ==

== ENCOUNTER → 2024-11-08 11:00 | Outpatient (BNVA) | payer MEDICARE, MEDICAID, SELFPAY | PROVIDERS: PCP Registered Nurse; Visit Provider Thoracic Surgery (Cardiothoracic Vascular Surgery) | DX: I96 Gangrene, not elsewhere classified (principal); L89.313 Pressure ulcer of right buttock, stage 3; L89.154 Pressure ulcer of sacral region, stage 4; L89.214 Pressure ulcer of right hip, stage 4 | CPT/HCPCS: 11042; 97597 ==

== ENCOUNTER → 2024-11-10 13:27 | Outpatient (BNVA) | payer MEDICARE, MEDICAID, SELFPAY | PROVIDERS: PCP Registered Nurse; Visit Provider Thoracic Surgery (Cardiothoracic Vascular Surgery) | DX: L89.214 Pressure ulcer of right hip, stage 4 (principal); L89.154 Pressure ulcer of sacral region, stage 4; L89.313 Pressure ulcer of right buttock, stage 3; M86.8X8 Other osteomyelitis, other site | CPT/HCPCS: 99212 ==

== ENCOUNTER → 2024-11-22 11:00 | Outpatient (BNVA) | payer MEDICARE, MEDICAID, SELFPAY | PROVIDERS: PCP Registered Nurse; Visit Provider Thoracic Surgery (Cardiothoracic Vascular Surgery) | DX: I96 Gangrene, not elsewhere classified (principal); L89.154 Pressure ulcer of sacral region, stage 4; L89.214 Pressure ulcer of right hip, stage 4; L89.313 Pressure ulcer of right buttock, stage 3 | CPT/HCPCS: 11042; 97597; A6219; A6446 ==

== ENCOUNTER → 2024-12-06 10:44 | Outpatient (BNVA) | payer MEDICARE, MEDICAID, SELFPAY | PROVIDERS: PCP Registered Nurse; Visit Provider Thoracic Surgery (Cardiothoracic Vascular Surgery) | DX: L89.154 Pressure ulcer of sacral region, stage 4 (principal); L89.214 Pressure ulcer of right hip, stage 4; I96 Gangrene, not elsewhere classified; L89.313 Pressure ulcer of right buttock, stage 3 | CPT/HCPCS: 11042; 97597; A6219; A6446 ==

== ENCOUNTER 2024-12-07 16:16 | Inpatient (IN) | payer MEDICARE, MEDICAID, SELFPAY ==
[2024-12-07] VITALS (16 sets, daily range): BP systolic 102–155; BP diastolic 62–104; PULSE 102–146; RESP 12–20; TEMP 36.5–36.7; O2SAT 93–97; BMI 31.1
--- NOTE | 2024-12-07 09:00 | USCV_ITS ---
David Chen Age: 54 Gender: M : 1970 Exam Date: 12/07/2024 23:07 Ordering Phys: Corine Rubalcava MD Technologist: PARMJIT Exam Location: [facility] [place] Indication: A-fib, CHF Partial quadriplegia c5/6 , HTN, HL, sleep apnea. Patient has erratic heart rate from 90 to 120 bpm BP: 114 / 83 HR: 92 Rhythm: Atrial fibrillation Technical Quality: Adequate MEASUREMENTS (Male / Female) Normal Values 2D ECHO LV Diastolic Diameter PLAX 5.0 cm 4.2 - 5.9 / 3.9 - 5.3 cm IVS Diastolic Thickness 1.4 cm 0.6 - 1.0 / 0.6 - 0.9 cm IVS Systolic Thickness 1.6 cm LVPW Diastolic Thickness 1.4 cm 0.6 - 1.0 / 0.6 - 0.9 cm LVPW Systolic Thickness 2.3 cm LVOT Diameter 2.4 cm LV Ejection Fraction 2D Teich 55.6 % LV Ejection Fraction MOD 4C 37.9 % LV Ejection Fraction MOD 2C 47.3 % LV Ejection Fraction 2C AL 48.8 % LA Diameter 3.8 cm Aorta at Sinotubular Diameter 2.7 cm IVC Diameter 1.2 cm M-MODE LA Ao Ratio MM 1.4 AV Cusp Separation MM 2.2 cm DOPPLER AV Peak Velocity 141.0 cm/s LVOT Peak Velocity 86.0 cm/s AV Area Cont Eq vti 3.6 cm squared AV Area Cont Eq pk 2.9 cm squared MV Peak Velocity 93.0 cm/s MV Area PHT 3.8 cm squared Mitral E to A Ratio 0.0 TV Peak Velocity 233.5 cm/s TR Peak Velocity 261.0 cm/s TR Peak Gradient 27.2 mmHg TV Peak E Velocity 30.0 cm/s PV Peak Velocity 84.0 cm/s FINDINGS Left Ventricle Mildly increased left ventricular cavity size. Moderately decreased left ventricular systolic function. Global left ventricular hypokinesis. Left ventricular ejection fraction is estimated at 45 %. Grade II/IV diastolic dysfunction, moderately elevated filling pressures. Right Ventricle The right ventricle is normal in size and function. Right Atrium The right atrium is normal in size. Left Atrium The left atrium is normal in size. Mitral Valve Moderately thickened mitral valve. Moderate mitral annular calcification. No mitral valve stenosis. Mild-moderate mitral valve regurgitation. Aortic Valve Moderate aortic valve calcification. No aortic valve stenosis. Trace aortic valve regurgitation. , mean gradient 3.5 mmHg, TEN 3.6 cm squared. Trace to mild aortic valve regurgitation. Tricuspid Valve Structurally normal tricuspid valve without significant stenosis or regurgitation. Pulmonic Valve Structurally normal pulmonic valve without significant stenosis. There is no pulmonic regurgitation. Pericardium Normal pericardium without effusion. Aorta Normal ascending aorta dimension. IVC The inferior vena cava appears normal. CONCLUSIONS Mildly increased left ventricular cavity size. Moderately decreased left ventricular systolic function. Global left ventricular hypokinesis. Left ventricular ejection fraction is estimated at 45 %. Grade II/IV diastolic dysfunction, moderately elevated filling pressures. Moderate aortic valve calcification. No aortic valve stenosis. Trace aortic valve regurgitation. , mean gradient 3.5 mmHg, TEN 3.6 cm squared. Trace to mild aortic valve regurgitation. Moderately thickened mitral valve. Moderate mitral annular calcification. No mitral valve stenosis. Mild-moderate mitral valve regurgitation. There is no pericardial effusion. Right atrial pressure is around 5 mm of mercury. Corine Oconnell MD (Electronically Signed) Final Date: 08 December 2024 15:50 S
--- NOTE | 2024-12-07 16:17 | ECG_ITS ---
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 Measurements Intervals [place] Rate: 147 P: 0 NV: 0 QRS: -56 QRSD: 90 T: 52 QT: 259 QTc: 405 Interpretive Statements ATRIAL FLUTTER WITH RAPID VENTRICULAR RESPONSE POSSIBLE RIGHT VENTRICULAR CONDUCTION DELAY [RSR (QR) IN V1/V2] LEFT ANTERIOR FASCICULAR BLOCK [QRS AXIS <= -45, QR IN I, RS IN II] POSSIBLE ANTERIOR MYOCARDIAL INFARCTION , OF INDETERMINATE AGE [30 ms Q WAVE IN V3/V4, OR R < 0.2 mV IN V4] Compared to ECG 02/26/2023 02:45:02 Left anterior fascicular block now present Myocardial infarct finding now present ST (T wave) deviation now present Sinus rhythm no longer present Electronically Signed On 12-08-2024 11:15:01 LENS INSERTER by Anderson Bower M.D. [email or web address]
--- NOTE | 2024-12-07 16:18 | XRR_ITS ---
PROCEDURE INFORMATION: Exam: XR Chest Exam date and time: 12/07/2024 5:06 PM Age: 54 years old Clinical indication: Chest wall pain; Additional info: Cp TECHNIQUE: Imaging protocol: Radiologic exam of the chest. Views: 1 view. COMPARISON: CR XR chest 1V portable [id number] 07/15/2024 10:52 AM FINDINGS: Lungs: Unremarkable. No consolidation. Pleural spaces: Unremarkable. No pleural effusion. No pneumothorax. Heart/Mediastinum: Unremarkable. No cardiomegaly. Bones/joints: Unremarkable. XR/XR chest 1V portable [id number] IMPRESSION: No acute findings.
[2024-12-07] MEDS: dilTIAZem 5 mg/mL SDV 5 mL 20 MG IVP (16:52)
[2024-12-07] MEDS: dilTIAZem 100 MG in sodium chloride 0.9% (add-van) 100 ML IV (16:58)
[2024-12-07 17:23] LABS: Basophils # 0.1 10^3/uL (0.0-0.1); Basophils % 1.1 %; Eosinophils # 0.2 10^3/uL (0.0-0.8); Hematocrit 47.4 % (37-53); Lymphocytes # 1.3 10^3/uL (0.8-4.8); Lymphocytes % 13.2 %; Mean Corpuscular HGB Conc 28.9 g/dL (30-55); Mean Corpuscular Hemoglobin 20.9 pg (27-33); Mean Corpuscular Volume 72.1 fl (82-101); Mean Platelet Volume 9.2 fL (7.4-10.4); Monocytes % 9.7 %; Neutrophils # 7.28 10^3/uL (1.8-7.7); Neutrophils % 73.3 %; Nucleated Red Blood Cells % 0 %; Platelet Count 339 10^3/cmm (157-399); Red Blood Count 6.57 10^6/uL (3.85-5.65); Red Cell Distribution Width 21.5 % (12.1-15.1); White Blood Count 9.93 10^3/uL (3.29-11.43)
[2024-12-07 17:38] LABS: INR 0.92 (0.8-1.2)
[2024-12-07 17:39] LABS: Bilirubin Urine Negative (Negative); Blood Urine 2+ (Negative); Glucose Urine UA Negative (Normal); Ketones Urine Trace (Negative); Leukocyte Esterase Urine 1+ (Negative); Nitrate Urine Positive (Negative); Protein Urine Trace (Negative); Specific Gravity, Urine 1.027 (1.005-1.030); Urine Appearance Cloudy (CLEAR); Urine Color Yellow (Yellow); Urobilinogen Urine 0.2 mg/dL (Negative)
[2024-12-07 17:41] LABS: Bacteria Urine 4+ /hpf; Hyaline Casts Urine 4.11 /lpf; Squamous Epithelial Cell Urine 0-5 /hpf (0-5)
--- NOTE | 2024-12-07 17:48 | ED_ITS ---
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 He was seen by his PCP and told he has pneumonia and broken ribs. He does have some back pain and a cough. Patient is alert and oriented. Heart rate is in the 140s on presentation. He is not requiring any oxygen at this time. He says he has been having tachycardia and shortness of breath for 2 weeks now. Related Data Home Medications Medication Instructions Recorded Confirmed amitriptyline 10 mg tablet 10 mg PO BID 11/17/19 08/23/24 ascorbate calcium (vitamin C) 500 500 mg PO BID 11/17/19 08/23/24 mg tablet aspirin 81 mg tablet,delayed 81 mg PO QAM 11/17/19 08/23/24 release (Adult Aspirin Regimen) atorvastatin 40 mg tablet 40 mg PO DAILY@16 11/17/19 08/23/24 baclofen 20 mg tablet See Rx Instructions .Route 11/17/19 08/23/24 .COMPLEX PRN Pain (Scale Score 4-6) clopidogrel 75 mg tablet 75 mg PO QAM 11/17/19 08/23/24 fluticasone propionate 50 2 spray intranasal DAILY PRN 11/17/19 08/23/24 mcg/actuation nasal Allergy Symptoms spray,suspension (Flonase Allergy Relief) gabapentin 300 mg capsule 600 mg PO TID 11/17/19 08/23/24 methenamine hippurate 1 gram tablet 1 gm PO BID 11/17/19 08/23/24 paroxetine HCl 20 mg tablet 20 mg PO DAILY 11/17/19 08/23/24 Lactobacillus acidophilus and 1 cap PO BID 07/13/22 08/23/24 rhamnosus 15 billion cell capsule (Probiotic) cholecalciferol (vitamin D3) 25 25 mcg PO BEDTIME 07/13/22 08/23/24 mcg (1,000 unit) capsule (Vitamin D3) multivitamin 1 tab PO DAILY 07/13/22 08/23/24 vitamin A 2,400 mcg capsule 2,400 mcg PO BEDTIME 07/13/22 08/23/24 bupropion HCl 150 mg tablet,12 hr 150 mg PO BID 08/14/22 08/23/24 sustained-release coenzyme Q10 100 mg capsule 100 mg PO BEDTIME 08/14/22 08/23/24 (CoQ-10) d-mannose 500 mg capsule 500 mg PO BID 08/14/22 08/23/24 esomeprazole magnesium 20 mg 20 mg PO DAILY 08/14/22 08/23/24 capsule,delayed release (Nexium) metformin 1,000 mg tablet 1,000 mg PO BID 08/14/22 08/23/24 calcium 333 mg-vit D3 133 1 tab PO BEDTIME 02/26/23 08/23/24 unit-magnesium 133 mg-zinc 5 mg tablet (Jevon Mag Zinc Plus D3) hypochlorus acid 0.02 %-sod 2 spray topical DAILY PRN dryness 07/15/24 08/23/24 hypochl-sod chl-elec. water topical spray Previous Rx's Medication Instructions Recorded fluticasone fur. 100 mcg-umeclid 1 inh inhalation DAILY #60 ea 02/28/23 62.5 mcg-vilant 25 mcg inhalat.powder (Trelegy Ellipta) levofloxacin 500 mg tablet 500 mg PO DAILY #7 tabs 09/06/24 hydrocodone 5 mg-acetaminophen 325 1 tab PO BID PRN pain 10 days #20 09/27/24 mg tablet tabs sodium hypochlorite 0.125 % 1 applic topical Q3D #473 mL 09/27/24 solution (Dakin's Solution) levofloxacin 500 mg tablet 500 mg PO DAILY #14 tabs 09/28/24 clindamycin HCl 150 mg capsule 150 mg PO TID #42 caps 11/10/24 Allergies Allergy/AdvReac Type Severity Reaction Status Date / Time Penicillins Allergy THROAT Verified 12/07/24 16:26 SWELLS SHUT Sulfa (Sulfonamide Allergy HIVES Verified 12/07/24 16:26 Antibiotics) linezolid [From Zyvox] AdvReac ADR-Cramping Verified 12/07/24 16:26 of the Muscles Review of Systems 2 Narrative: Constitutional symptoms: Negative except as documented in HPI. Skin symptoms: Negative except as documented in HPI. Eye symptoms: Negative except as documented in HPI. ENMT symptoms: Negative except as documented in HPI. Respiratory symptoms: Negative except as documented in HPI. Cardiovascular symptoms: Negative except as documented in HPI. Gastrointestinal symptoms: Negative except as documented in HPI. Genitourinary symptoms: Negative except as documented in HPI. Musculoskeletal symptoms: Negative except as documented in HPI. Neurologic symptoms: Negative except as documented in HPI. Psychiatric symptoms: Negative except as documented in HPI. Endocrine symptoms: Negative except as documented in HPI. PFSH ED 2 PFSH: Medical History Wheelchair dependent Diabetes no insulin Hypertension 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 Roy along with I&D of right hemiscrotal abscess by Dr. Alberts History of percutaneous endoscopic gastrostomy History of tracheostomy subsequently removed, for prolonged ventilation History of percutaneous coronary intervention RCA Status post excisional debridement buttocks History of lumbar surgery History of cervical spinal surgery Family History Mother Hypertension Father Arthritis Other Pressure ulcer of right buttock, stage 4 Denies family history of Anesthesia complication Bleeding disorder Social History Smoking and tobacco/nicotine status: former use of tobacco/nicotine Alcohol intake: never Substance/Drug Use: never Caregiver/support person: Yes Lives independently: No Household members: significant other Marital status: Current occupational status: disabled Physical Exam 2 Narrative: EXAM NARRATIVE: General: Alert, no acute distress. Skin: Warm, dry. Head: Normocephalic, atraumatic. Neck: Supple, trachea midline. Eye: Extraocular movements are intact. Ears, nose, mouth and throat: mucosa moist. Cardiovascular: Tachycardic, Normal peripheral perfusion. Respiratory: Lungs are clear to auscultation, respirations are non-labored, breath sounds are equal, Symmetrical chest wall expansion. Gastrointestinal: Soft, Nontender, Non distended Musculoskeletal: no deformity. Neurological: Alert and oriented, no new focal motor deficits. He does have partial quadriplegia. He is able to move his right arm but has contractures in his hand. More movement of his left hand. No lower extremity movement. Psychiatric: Cooperative, appropriate mood & affect. Course 2 Vital Signs: Vital signs: Vital Signs Temperature 98.0 F 12/07/24 16:18 Pulse Rate 126 H 12/07/24 19:00 Respiratory Rate 17 12/07/24 19:00 Blood Pressure 114/83 12/07/24 19:00 Pulse Oximetry 95 12/07/24 19:00 Oxygen Delivery Me thod Room Air 12/07/24 19:00 MDM - SOB/Dyspnea Medical Decision Making Differential diagnosis for patient with shortness of breath includes but is not limited to and based on the above HPI, review of systems and physical exam: Pneumonia. Bronchitis. Asthma or COPD with acute exacerbation. Acute coronary syndrome / [place]. Pulmonary embolism. Anxiety. Congestive heart failure. Viral infections including influenza and Covid-19. Atrial fibrillation. Anxiety. Pleural effusion. Pneumothorax. Orders placed to evaluate differential diagnosis based on the above differential, HPI and physical exam EKG: Time 1619. Rate 147. Atrial fibrillation with rapid ventricular response, nonspecific ST-T changes, no ectopy, This was reviewed and interpreted by myself the ER physician at 162 Lab Review: Laboratory results were reviewed and interpreted by myself the emergency room physician. No leukocytosis. No anemia. Mild elevation in BUN at 25. Creatinine is low at 0.3. Urine is nitrite positive with 4+ bacteria. 10-15 whites. This may just be from having chronic indwelling Olivas but at this point with him not responding to atrial fibrillation medications I am giving fluids and antibiotics for presumed sepsis. I reviewed the patient's medical record. Reexamination: Patient remains tachycardic. Primarily in the 140s. But he will drop down into the 1 teens at times. No altered mental status. No focal motor deficits. No oxygen requirements. No increased work of breathing. Patient is very pleasant. Consultation: I spoke with Dr. Rubalcava who is elocution teacher for the hospitalist service and agrees to admission. Assessment and plan: A-fib with RVR Urinary tract infection Possible sepsis ?Initially diltiazem bolus with drip. This did not affect his rate and dropped his blood pressure. So then amiodarone bolus was given and a drip was started. This has had some improvement in his rate but he continues to bounce back up to 140s. ?Possible sepsis but this is really fairly low on my differential at this point but at this point obligated to treat. Urine as a source. However likely this is just a contaminated Olivas catheter. Olivas catheter is being changed. Cefepime and fluids are given. -2.5 L normal saline bolus. Fluid volumes based on ideal body weight. -Broad-spectrum antibiotics were administered. -Sepsis quality measures. -Lactic acid with a reflex was ordered. -Blood cultures were ordered. -I discussed the patient with the hospitalist on-call who is admitting the patient. - Discussed findings and plan with patient. Answered any questions. - All laboratory values were reviewed and interpreted personally by myself, the ER physician - All imaging was reviewed and interpreted personally by myself, the ER physician. - Evaluation and treatment of this problem were appropriate in the emergency setting Lab Data 12/07/24 16:50 12/07/24 16:50 Labs/Radiology: Radiology Impressions Chest X-Ray 12/07/24 16:18 IMPRESSION: No acute findings. Laboratory Results WBC 9.93 10^3/uL (3.29-11.43) 12/07/24 16:50 RBC 6.57 10^6/uL (3.85-5.65) H 12/07/24 16:50 Hgb 13.70 g/dL (11.27-16.99) 12/07/24 16:50 Hct 47.4 % (37-53) 12/07/24 16:50 MCV 72.1 fl (82-101) L 12/07/24 16:50 MCH 20.9 pg (27-33) L 12/07/24 16:50 MCHC 28.9 g/dL (30-55) L 12/07/24 16:50 RDW 21.5 % (12.1-15.1) H 12/07/24 16:50 Plt Count 339 10^3/cmm (157-399) 12/07/24 16:50 MPV 9.2 fL (7.4-10.4) 12/07/24 16:50 Neut % (Auto) 73.3 % 12/07/24 16:50 Lymph % (Auto) 13.2 % 12/07/24 16:50 [place] % (Auto) 9.7 % 12/07/24 16:50 Eos % (Auto) 2.0 % 12/07/24 16:50 Baso % (Auto) 1.1 % 12/07/24 16:50 Neut # (Auto) 7.28 10^3/uL (1.8-7.7) 12/07/24 16:50 Lymph # (Auto) 1.3 10^3/uL (0.8-4.8) 12/07/24 16:50 [place] # (Auto) 1.0 10^3/uL (0.2-0.9) H 12/07/24 16:50 Eos # (Auto) 0.2 10^3/uL (0.0-0.8) 12/07/24 16:50 Baso # (Auto) 0.1 10^3/uL (0.0-0.1) 12/07/24 16:50 Nucleated RBC % (auto) 0 % 12/07/24 16:50 Nucleated RBCs # 0.0 /100WBC 12/07/24 16:50 PT 13.00 SECONDS (12.1-14.9) 12/07/24 16:50 INR 0.92 (0.8-1.2) 12/07/24 16:50 Sodium 137 mmol/L (136-145) 12/07/24 16:50 Potassium 4.3 mmol/L (3.5-5.1) 12/07/24 16:50 Chloride 97 mmol/L (98-107) L 12/07/24 16:50 Carbon Dioxide 25 mmol/L (22-29) 12/07/24 16:50 Anion Gap 19.3 (5-19) H 12/07/24 16:50 BUN 25 mg/dL (6-20) H 12/07/24 16:50 Creatinine 0.3 mg/dL (0.7-1.2) L 12/07/24 16:50 GFR Calculation 311.3 mL/min (90-130) H 12/07/24 16:50 Glucose 279 mg/dL (65-115) H 12/07/24 16:50 Calculated Osmolality 298 mOsm/kg (285-295) H 12/07/24 16:50 Calcium 9.9 mg/dL (8.5-10.5) 12/07/24 16:50 Magnesium 1.7 mg/dL (1.7-2.3) 12/07/24 16:50 Total Bilirubin 0.2 mg/dL (0.15-1.2) 12/07/24 16:50 AST 33 U/L (0-40) 12/07/24 16:50 ALT 78 U/L (0-41) H 12/07/24 16:50 Alkaline Phosphatase 98 U/L (40-130) 12/07/24 16:50 Troponin T Baseline 20 ng/L (0-15) H 12/07/24 16:50 Troponin T 120 Minute 19.27 ng/L (0-15) H 12/07/24 18:55 Delta Troponin T -0.73 ABS# (0-10) L 12/07/24 18:55 Total Protein 7.4 g/dL (6.6-8.7) 12/07/24 16:50 Albumin 3.8 g/dL (3.5-5.2) 12/07/24 16:50 Globulin 3.6 g/dL (1.3-4.6) 12/07/24 16:50 Lipase 35 U/L (13-60) 12/07/24 16:50 TSH 1.57 uIU/mL (0.27-4.20) 12/07/24 16:50 Urine Color Yellow (Yellow) 12/07/24 17:08 Urine Appearance Cloudy (CLEAR) A 12/07/24 17:08 Urine pH 5.0 (5-7) 12/07/24 17:08 Ur Specific Powers 1.027 (1.005-1.030) 12/07/24 17:08 Urine Protein Trace (Negative) A 12/07/24 17:08 Urine Glucose (UA) Negative (Normal) 12/07/24 17:08 Urine Ketones Trace (Negative) 12/07/24 17:08 Urine Blood 2+ (Negative) A 12/07/24 17:08 Urine Nitrate Positive (Negative) A 12/07/24 17:08 Urine Bilirubin Negative (Negative) 12/07/24 17:08 Urine Urobilinogen 0.2 mg/dL (Negative) 12/07/24 17:08 Ur Leukocyte Esterase 1+ (Negative) A 12/07/24 17:08 Urine RBC 25-40 /hpf (0-2) H 12/07/24 17:08 Urine WBC 10-15 /hpf (0-5) H 12/07/24 17:08 Ur Squamous Epith Cells 0-5 /hpf (0-5) 12/07/24 17:08 Calcium Oxalate Crystal 0-4 /hpf H 12/07/24 17:08 Amorphous Sediment Not Reportable 12/07/24 17:08 Urine Bacteria 4+ /hpf (NONE) H 12/07/24 17:08 Hyaline Casts 4.11 /lpf 12/07/24 17:08 All radiology interpretation(s) finalized by discharge Discharge Plan Discharge Patient Disposition: Admitted As Inpatient Clinical Impression: Atrial fibrillation with rapid ventricular response, Urinary tract infection, Quadriplegia Condition: Stable Coding Level of Care Code ED Wide Load Escort for Johnny Smart
[2024-12-07 17:59] LABS: Troponin(5th) Baseline 20 ng/L (0-15)
[2024-12-07 18:04] LABS: UA Slide Review UA Slide Review Perf
[2024-12-07 18:05] LABS: Add Urine Culture? Yes; Calcium Oxalate Crystals Urine 0-4 /hpf; RBC Urine 25-40 /hpf (0-2)
[2024-12-07 18:09] LABS: Alanine Aminotransferase 78 U/L (0-41); Albumin Level 3.8 g/dL (3.5-5.2); Alkaline Phosphatase 98 U/L (40-130); Anion Gap 19.3 (5-19); Aspartate Amino Transferase 33 U/L (0-40); Blood Urea Nitrogen 25 mg/dL (6-20); Calcium 9.9 mg/dL (8.5-10.5); Carbon Dioxide 25 mmol/L (22-29); Chloride 97 mmol/L (98-107); Creatinine Clr Calc Pharmacy 320.5885; Globulin 3.6 g/dL (1.3-4.6); Glomerular Filtration Rate 311.3 mL/min (90-130); Glucose 279 mg/dL (65-115); Lipase 35 U/L (13-60); Magnesium 1.7 mg/dL (1.7-2.3); Osmolality Calculated 298 mOsm/kg (285-295); Potassium 4.3 mmol/L (3.5-5.1); Sodium 137 mmol/L (136-145); Thyroid Stimulating Hormone 1.57 uIU/mL (0.27-4.20); Total Bilirubin 0.2 mg/dL (0.15-1.2); Total Protein 7.4 g/dL (6.6-8.7)
[2024-12-07] MEDS: amiodarone 150 MG/100 ML PREMIX 400 MG IV (18:09)
--- NOTE | 2024-12-07 18:18 | ECG_ITS ---
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 Measurements Intervals [place] Rate: 109 P: 83 [place]: 188 QRS: -43 QRSD: 84 T: 82 QT: 316 QTc: 426 Interpretive Statements ATRIAL FLUTTER WITH RAPID VENTRICULAR RESPONSE POSSIBLE RIGHT VENTRICULAR CONDUCTION DELAY [RSR (QR) IN V1/V2] ANTEROSEPTAL MYOCARDIAL INFARCTION , OF INDETERMINATE AGE [40+ ms Q WAVE IN V1-V4] Compared to ECG 12/07/2024 16:19:28 Left-axis deviation now present Left anterior fascicular block no longer present Myocardial infarct finding still present ST (T wave) deviation still present Electronically Signed On 12-10-2024 13:42:22 TIMBER SKIDDER by Anderson Bower M.D. [email or web address]
[2024-12-07] MEDS: cefepime 2,000 mg SDV 2000 MG IVP (19:00)
[2024-12-07] MEDS: sodium chloride 0.9% 500 ML 999 ML IV (19:03)
[2024-12-07] MEDS: sodium chloride 0.9% 1,000 ML 999 ML IV ×2 (19:03)
--- NOTE | 2024-12-07 19:34 | P.HP_ITS ---
Providers/Chief Complaint 2 Primary Care Provider: Emelia Martínez Chief Complaint: SOB/chest pains History of Present Illness David Chen is a 54 year old male with history of paraplegia, multiple pressure ulcers follows up with wound care clinic, 3 weeks ago finished IV antibiotic regimen daptomycin for osteomyelitis, presenting with chief complaint of worsening shortness of breath. Patient is endorsing 3 to 4-week history of shortness of breath but orthopnea and PND without productive cough fever nausea vomiting diarrhea or chest pain. Patient was recently put on doxycycline for possibility of pneumonia. Workup in the ER did not show any sign of pneumonia on x-ray, no leukocytosis however he does have new onset A-fib RVR heart rate 140s, blood pressure dropped after getting Cardizem he was switched to amiodarone, at the time of my evaluation heart rate is around 140s, patient is awake and alert not complaining active chest pain blood pressure 114/83 mmHg he does have high BNP, high lactic acid He has been given cefepime for possibility of Cauti His changes his catheter regularly, last catheter change was a week ago Patient has been started on Ozempic as well for hyperglycemia, patient eats regular food at home He has been given 3 L IV bolus along cefepime blood cultures urine culture taken. With signs of heart failure and A-fib RVR heart rate around 145, I will give him a loading dose of digoxin as well 500 mcg Review of Systems 2 Const: Reports: chills; Denies: fever(s) Eyes: Denies: change in vision ENMT: Denies: throat pain Card: Reports: swelling of feet/ankles Resp: Reports: dyspnea GI: Denies: abdominal pain Skin/Breast: Reports: rash, sores, non-healing lesions and lesions Medications/Allergies Home Medications Medication Instructions Recorded Confirmed Last Taken Type amitriptyline 10 mg tablet 10 mg PO BID 11/17/19 08/23/24 07/15/24 History ascorbate calcium (vitamin C) 500 500 mg PO BID 11/17/19 08/23/24 07/15/24 History mg tablet aspirin 81 mg tablet,delayed 81 mg PO QAM 11/17/19 08/23/24 07/15/24 History release (Adult Aspirin Regimen) atorvastatin 40 mg tablet 40 mg PO DAILY@16 11/17/19 08/23/24 07/15/24 History baclofen 20 mg tablet See Rx Instructions .Route 11/17/19 08/23/24 07/15/24 History .COMPLEX PRN Pain (Scale Score 4-6) clopidogrel 75 mg tablet 75 mg PO QAM 11/17/19 08/23/24 07/15/24 History fluticasone propionate 50 2 spray intranasal DAILY PRN 11/17/19 08/23/24 07/15/24 History mcg/actuation nasal Allergy Symptoms spray,suspension (Flonase Allergy Relief) gabapentin 300 mg capsule 600 mg PO TID 11/17/19 08/23/24 07/15/24 History methenamine hippurate 1 gram tablet 1 gm PO BID 11/17/19 08/23/24 07/15/24 History paroxetine HCl 20 mg tablet 20 mg PO DAILY 11/17/19 08/23/24 07/15/24 History Lactobacillus acidophilus and 1 cap PO BID 07/13/22 08/23/24 07/15/24 History rhamnosus 15 billion cell capsule (Probiotic) cholecalciferol (vitamin D3) 25 25 mcg PO BEDTIME 07/13/22 08/23/24 07/14/24 History mcg (1,000 unit) capsule (Vitamin D3) multivitamin 1 tab PO DAILY 07/13/22 08/23/24 07/15/24 History vitamin A 2,400 mcg capsule 2,400 mcg PO BEDTIME 07/13/22 08/23/24 07/14/24 History bupropion HCl 150 mg tablet,12 hr 150 mg PO BID 08/14/22 08/23/24 07/15/24 History sustained-release coenzyme Q10 100 mg capsule 100 mg PO BEDTIME 08/14/22 08/23/24 07/14/24 History (CoQ-10) d-mannose 500 mg capsule 500 mg PO BID 08/14/22 08/23/24 07/15/24 History esomeprazole magnesium 20 mg 20 mg PO DAILY 08/14/22 08/23/24 07/15/24 History capsule,delayed release (Nexium) metformin 1,000 mg tablet 1,000 mg PO BID 08/14/22 08/23/24 07/15/24 History calcium 333 mg-vit D3 133 1 tab PO BEDTIME 02/26/23 08/23/24 07/14/24 History unit-magnesium 133 mg-zinc 5 mg tablet (Jevon Mag Zinc Plus D3) fluticasone fur. 100 mcg-umeclid 1 inh inhalation DAILY #60 ea 02/28/23 08/23/24 07/15/24 Rx 62.5 mcg-vilant 25 mcg inhalat.powder (Trelegy Ellipta) hypochlorus acid 0.02 %-sod 2 spray topical DAILY PRN dryness 07/15/24 08/23/24 07/15/24 History hypochl-sod chl-elec. water topical spray levofloxacin 500 mg tablet 500 mg PO DAILY #7 tabs 09/06/24 09/06/24 Unknown Rx hydrocodone 5 mg-acetaminophen 325 1 tab PO BID PRN pain 10 days #20 09/27/24 09/27/24 Unknown Rx mg tablet tabs sodium hypochlorite 0.125 % 1 applic topical Q3D #473 mL 09/27/24 09/27/24 Unknown Rx solution (Dakin's Solution) levofloxacin 500 mg tablet 500 mg PO DAILY #14 tabs 09/28/24 09/28/24 Unknown Rx clindamycin HCl 150 mg capsule 150 mg PO TID #42 caps 11/10/24 Unknown Rx Allergies Allergy/AdvReac Type Severity Reaction Status Date / Time Penicillins Allergy THROAT Verified 12/07/24 16:26 SWELLS SHUT Sulfa (Sulfonamide Allergy HIVES Verified 12/07/24 16:26 Antibiotics) linezolid [From Zyvox] AdvReac ADR-Cramping Verified 12/07/24 16:26 of the Muscles PFSH Acute 2 PFSH: Medical History Wheelchair dependent Diabetes no insulin Hypertension 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 Roy along with I&D of right hemiscrotal abscess by Dr. Alberts History of percutaneous endoscopic gastrostomy History of tracheostomy subsequently removed, for prolonged ventilation History of percutaneous coronary intervention RCA Status post excisional debridement buttocks History of lumbar surgery History of cervical spinal surgery Family History Mother Hypertension Father Arthritis Other Pressure ulcer of right buttock, stage 4 Denies family history of Anesthesia complication Bleeding disorder Social History Smoking and tobacco/nicotine status: former use of tobacco/nicotine Alcohol intake: never Substance/Drug Use: never Caregiver/support person: Yes Lives independently: No Household members: significant other Marital status: Current occupational status: disabled Vitals/I&O/Wt Last Vital Signs Temp 98.0 F 12/07/24 16:18 Pulse 126 H 12/07/24 19:00 Resp 17 12/07/24 19:00 BP 114/83 12/07/24 19:00 Pulse Ox 95 12/07/24 19:00 O2 Del Method Room Air 12/07/24 19:00 12/07/24 12/07/24 12/07/24 06:59 14:59 22:59 Intake Total 110.375 / 110.375 Balance 110.375 / 110.375 Weight last 48 hrs Weight 90.718 kg Physical Exam 2 Narrative: Patient is awake and alert No active chest pain A-fib RVR heart rate 145 Blood pressure 114/83 mmHg Currently on room air Abdomen distended nontender Lower extremity mild skin mottling noted Cap refill more than 3 seconds Variable S1-S2 Awake and alert Nonfocal neuroexam Able to move upper extremities Patient is AOx4 is at the bedside Data 12/07/24 16:50 12/07/24 16:50 A&P Assessment and plan (1) Atrial fibrillation with rapid ventricular response: (2) Diabetes: Qualifiers: Diabetes mellitus complication detail: with other skin ulcer Diabetes mellitus complication status: with skin complications Diabetes mellitus care home insulin use: without local intermodal truck driver use Diabetes mellitus type: type 2 Qualified Code(s): E11.622 - Type 2 diabetes mellitus with other skin ulcer (3) Retention of urine due to occlusion of Olivas catheter: (4) UTI (urinary tract infection): (5) Osteomyelitis hip: (6) 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: Qualifiers: Encounter type: initial encounter Qualified Code(s): S98.222A - Partial traumatic amputation of two or more left lesser toes, initial encounter (7) Sacral wound: (8) Wheelchair dependent: (9) New onset of congestive heart failure: (10) Sepsis: (11) Recurrent UTI: (12) Pressure ulcer of coccygeal region: (13) Pressure ulcer of right buttock, stage 4: (14) Pressure ulcers of skin of multiple topographic sites: Plan Sepsis related to Cauti Patient also has multiple pressure ulcers, history of chronic osteomyelitis recently finished IV antibiotic course 3 weeks ago As per the , wound care clinic has not commended any debridement Replace Olivas catheter Continue cefepime for E. coli urine culture history Patient has received septic bolus I would not continue IV fluids he does have high BNP, mild sign of fluid overload New onset CHF Low-dose Lasix considering na?ve Requested echo Tachyarrhythmia related CHF no active chest pain, no significant elevation of troponin, I did not appreciate any ST elevation that was read by machine, his EKG consistent with intermittent A-fib A-fib RVR Started amiodarone drip, given loading dose of digoxin Check magnesium, keep magnesium of 2, potassium of 4, check D-dimer to rule out thromboembolic disease CHADVASC: 5 Start therapeutic Lovenox will need Eliquis at discharge Chest x-ray unremarkable, discontinue doxycycline that he was taking at home, patient is not requiring oxygen Full code Diabetic diet consistent carb diet DVT prophylaxis: Therapeutic Lovenox Attestations 2 Medical Necessity Statement*: More than 2 midnights anticipated Diagnoses Atrial fibrillation with rapid ventricular response I48.91 Type 2 diabetes mellitus with other skin ulcer, without long-term current use of insulin E11.622 Diabetes mellitus complication detail: with other skin ulcer Diabetes mellitus complication status: with skin complications Diabetes mellitus local intermodal truck driver insulin use: without care home use Diabetes mellitus type: type 2 Retention of urine due to occlusion of Olivas catheter T83.198A; R33.8 UTI (urinary tract infection) N39.0 Osteomyelitis hip M86.9 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
[2024-12-07 19:38] LABS: Troponin 5 2HR 19.27 ng/L (0-15)
[2024-12-07 19:42] LABS: Troponin 5 2HR Delta -0.73 ABS# (0-10)
[2024-12-07 19:49] LABS: Lactic Sepsis W/Reflex 3.9 mmol/L (0.5-2.2)
[2024-12-07 19:54] LABS: Reflex Lactate Order REFLEX LACTIC ORDERD
[2024-12-07 19:59] LABS: NT Pro B Type Natriuretic Pept 958 pg/mL (0-125)
[2024-12-07 20:21] LABS: Lactic Acid level (Lactate) 2.4 mmol/L (0.5-2.2)
[2024-12-07 20:34] LABS: Procalcitonin 0.05 ng/mL (0-0.5)
[2024-12-07] MEDS: gabapentin 300 mg Capsule 600 MG PO (21:22)
[2024-12-07] MEDS: baclofen 10 mg Tablet 60 MG PO (21:22)
[2024-12-07] MEDS: enoxaparin 100 mg/mL Syringe 90 MG SUBCUT (21:26)
[2024-12-07] MEDS: digoxin 250 mcg/ml INJ 2 mL 500 MCG IVP (21:29)
--- NOTE | 2024-12-07 22:18 | ECG_ITS ---
[employer] Test Date: 2024-12-07 Pat Name: David Chen Department: Room: ICU03 Gender: Male Platform Supervisor: : [id number] Requested By: Connor Ontiveros Order Number: [id number] Harrison MD: Anderson Bower M.D. Measurements Intervals [place] Rate: 140 P: 0 IN: 0 QRS: -21 QRSD: 113 T: 48 QT: 282 QTc: 431 Interpretive Statements ATRIAL FLUTTER WITH RAPID VENTRICULAR RESPONSE INCOMPLETE RIGHT BUNDLE BRANCH BLOCK [90+ ms QRS DURATION, TERMINAL R IN V1/V2, 40+ ms S IN I/aVL/V4/V5/V6] POSSIBLE ANTERIOR MYOCARDIAL INFARCTION , OF INDETERMINATE AGE [30 ms Q WAVE IN V3/V4, OR R < 0.2 mV IN V4] Compared to ECG 12/07/2024 18:40:57 Incomplete right bundle-branch block now present Myocardial infarct finding still present ST (T wave) deviation still present Electronically Signed On 12-10-2024 13:41:38 IT MANAGER by Anderson Bower M.D. [email or web address]
[2024-12-07 23:07] LABS: Troponin 5 6HR 19.98 ng/L (0-15)
[2024-12-07 23:08] LABS: Troponin 5 6HR Delta -0.02 ng/L (0-12)
[2024-12-07 23:50] LABS: Glucose Point of Care 191 mg/dL (70-110)
[2024-12-08] VITALS (47 sets, daily range): BP systolic 80–145; BP diastolic 39–106; PULSE 82–138; RESP 7–25; TEMP 36.4–36.8; O2SAT 90–98
[2024-12-08 04:41] LABS: Basophils # 0.1 10^3/uL (0.0-0.1); Basophils % 0.7 %; Eosinophils # 0.2 10^3/uL (0.0-0.8); Eosinophils % 1.9 %; Lymphocytes # 1.8 10^3/uL (0.8-4.8); Lymphocytes % 19.5 %; Mean Corpuscular HGB Conc 28.6 g/dL (30-55); Mean Corpuscular Hemoglobin 20.6 pg (27-33); Mean Corpuscular Volume 71.8 fl (82-101); Mean Platelet Volume 9.4 fL (7.4-10.4); Monocytes % 10.5 %; Neutrophils # 6.29 10^3/uL (1.8-7.7); Nucleated Red Blood Cells % 0 %; Platelet Count 308 10^3/cmm (157-399); Red Blood Count 6.13 10^6/uL (3.85-5.65); Red Cell Distribution Width 20.9 % (12.1-15.1)
[2024-12-08 05:10] LABS: Anion Gap 16.3 (5-19); Blood Urea Nitrogen 16 mg/dL (6-20); C Reactive Protein 14.7 mg/L (0.0-4.9); Calcium 8.7 mg/dL (8.5-10.5); Carbon Dioxide 22 mmol/L (22-29); Chloride 104 mmol/L (98-107); Creatinine Clr Calc Pharmacy 506.3403; Glucose 190 mg/dL (65-115); Magnesium 1.7 mg/dL (1.7-2.3); Osmolality Calculated 292 mOsm/kg (285-295); Phosphorus 2.9 mg/dL (2.5-4.5); Potassium 4.3 mmol/L (3.5-5.1); Sodium 138 mmol/L (136-145)
[2024-12-08] MEDS: baclofen 10 mg Tablet 40 MG PO (05:52)
[2024-12-08] MEDS: clopidogrel 75 mg Tablet PO (05:54)
[2024-12-08 07:09] LABS: Glucose Point of Care 170 mg/dL (70-110)
[2024-12-08] MEDS: digoxin 250 mcg/ml INJ 2 mL IVP (07:46)
[2024-12-08] MEDS: insulin lispro 100 unit/1 mL SUBCUT ×3 (07:47→17:54)
[2024-12-08] MEDS: acetylcysteine 200 mg/mL MDV 10 mL 100 MG INHALATION (08:14)
[2024-12-08] MEDS: ipratropium-albuterol 3 mL Neb INHALATION ×3 (08:14→15:23)
[2024-12-08] MEDS: budesonide 0.5 mg/2 mL Neb INHALATION (08:14)
[2024-12-08] MEDS: FUROsemide 10 mg/mL SDV 2mL 20 MG IVP (09:12)
[2024-12-08] MEDS: cefepime 2,000 mg SDV 2000 MG IVP ×2 (09:12→21:28)
[2024-12-08] MEDS: digoxin 125 mcg Tablet PO (09:12)
[2024-12-08] MEDS: clindamycin 150 mg Capsule PO ×3 (09:12→21:28)
[2024-12-08] MEDS: gabapentin 300 mg Capsule 600 MG PO ×3 (09:12→21:28)
[2024-12-08] MEDS: buPROPion SR (12 HR) 150 mg Tablet PO ×2 (09:12→17:53)
[2024-12-08] MEDS: enoxaparin 100 mg/mL Syringe 90 MG SUBCUT ×2 (09:13→21:27)
[2024-12-08] MEDS: sennosides-docusate Tablet 1 TAB PO (09:13)
[2024-12-08 11:13] LABS: Glucose Point of Care 180 mg/dL (70-110)
--- NOTE | 2024-12-08 16:18 | P.PN_ITS ---
Subjective 2 Subjective: Seen this morning. Patient is in A-fib RVR still on amiodarone drip. He states he is feeling better. Resting comfortably in bed. Vitals/I&O/Wt Last Vital Signs Temp 97.6 F 12/08/24 08:00 Pulse 136 H 12/08/24 15:30 Resp 9 L 12/08/24 15:30 BP 122/90 12/08/24 15:30 Pulse Ox 95 12/08/24 15:30 O2 Del Method Nasal Cannula 12/08/24 15:30 O2 Flow Rate 2 12/08/24 15:30 12/08/24 12/08/24 12/08/24 06:59 14:59 22:59 Intake Total 2700 / 2810.375 200 / 200 Output Total 2400 / 2400 Balance 2700 / 2810.375 -2200 / -2200 Weight last 48 hrs Weight 101 kg Weight 101.5 kg Weight 90.718 kg Physical Exam 2 Narrative: Patient is awake and alert No active chest pain Tachycardic A-fib with RVR. Currently on room air Abdomen distended nontender Lower extremity mild skin mottling noted Cap refill more than 3 seconds Variable S1-S2 Awake and alert Nonfocal neuroexam Able to move upper extremities Patient is AOx4 Laying in bed appearing comfortable at this time. Data 12/08/24 04:07 12/08/24 04:07 Micro: Microbiology 12/07/24 17:08 Urine Culture - Preliminary Urine,Clean Catch Gram Negative Rods 12/07/24 19:40 Blood Culture - Preliminary Blood SPECIMEN COLLECTED 12/07/24 19:35 Blood Culture - Preliminary Blood SPECIMEN COLLECTED A&P Assessment and plan (1) Atrial fibrillation with rapid ventricular response: (2) Diabetes: Qualifiers: Diabetes mellitus complication detail: with other skin ulcer Diabetes mellitus complication status: with skin complications Diabetes mellitus half-way insulin use: without half-way use Diabetes mellitus type: type 2 Qualified Code(s): E11.622 - Type 2 diabetes mellitus with other skin ulcer (3) Retention of urine due to occlusion of Olivas catheter: (4) UTI (urinary tract infection): (5) Osteomyelitis hip: (6) 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: Qualifiers: Encounter type: initial encounter Qualified Code(s): S98.222A - Partial traumatic amputation of two or more left lesser toes, initial encounter (7) Sacral wound: (8) Wheelchair dependent: (9) New onset of congestive heart failure: (10) Sepsis: (11) Recurrent UTI: (12) Pressure ulcer of coccygeal region: (13) Pressure ulcer of right buttock, stage 4: (14) Pressure ulcers of skin of multiple topographic sites: Plan Sepsis related to Cauti Patient also has multiple pressure ulcers, history of chronic osteomyelitis recently finished IV antibiotic course 3 weeks ago As per the , wound care clinic has not commended any debridement Replace Olivas catheter Continue cefepime for E. coli urine culture history Patient has received septic bolus I would not continue IV fluids he does have high BNP, mild sign of fluid overload New onset CHF Low-dose Lasix considering na?ve Requested echo Tachyarrhythmia related CHF no active chest pain, no significant elevation of troponin, I did not appreciate any ST elevation that was read by machine, his EKG consistent with intermittent A-fib A-fib RVR Started amiodarone drip, given loading dose of digoxin Check magnesium, keep magnesium of 2, potassium of 4, check D-dimer to rule out thromboembolic disease CHADVASC: 5 Start therapeutic Lovenox will need Eliquis at discharge Chest x-ray unremarkable, discontinue doxycycline that he was taking at home, patient is not requiring oxygen Full code Diabetic diet consistent carb diet DVT prophylaxis: Therapeutic Lovenox 12/08/2024 Continue amiodarone drip at this time. ? Continue digoxin ? Continue antibiotics ? Awaiting urine culture ? Awaiting blood cultures ? Patient is status post 4 L normal saline bolus. Continue therapeutic Lovenox twice daily ? Continue cefepime Continue management as per H&P at this time. Check speech therapy evaluation today. Attestations 2 Medical Necessity Statement*: More than 2 midnights anticipated Coding Level of Care Code Acute Code for [facility] Fwd Diagnoses Atrial fibrillation with rapid ventricular response I48.91 Type 2 diabetes mellitus with other skin ulcer, without long-term current use of insulin E11.622 Diabetes mellitus complication detail: with other skin ulcer Diabetes mellitus complication status: with skin complications Diabetes mellitus half-way insulin use: without long term acute care registered nurse use Diabetes mellitus type: type 2 Retention of urine due to occlusion of Olivas catheter T83.198A; R33.8 UTI (urinary tract infection) N39.0 Osteomyelitis hip M86.9 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
[2024-12-08] MEDS: atorvastatin 40 mg Tablet PO (16:30)
[2024-12-08] MEDS: sodium chloride 0.9% 500 ML 999 ML IV (16:30)
[2024-12-08] MEDS: baclofen 10 mg Tablet 80 MG PO (16:30)
[2024-12-08] MEDS: amiodarone 150 MG/100 ML PREMIX 400 MG IV (16:31)
--- NOTE | 2024-12-08 17:14 | PC.NURSE ---
Patient requested special bed and an overhead trapeze. HOME was contacted and got the patient an overhead trapeze. They stated that they wanted to be contacted once we were done with the equipment. [phone]
[2024-12-08 17:26] LABS: Glucose Point of Care 154 mg/dL (70-110)
--- NOTE | 2024-12-08 18:55 | PC.NURSE ---
Report was given to EDWARDO Ramirez in [facility]. Patient was transferred with all belongings, special bed and overhead trapeze. Patient was stable upon transfer.
[2024-12-08 20:49] LABS: Glucose Point of Care 204 mg/dL (70-110)
[2024-12-08] MEDS: baclofen 10 mg Tablet 60 MG PO (21:27)
[2024-12-09] VITALS (17 sets, daily range): BP systolic 103–151; BP diastolic 74–98; PULSE 88–135; RESP 15–23; TEMP 36.4–36.7; O2SAT 91–96; BMI 32.3
[2024-12-09] MEDS: ipratropium-albuterol 3 mL Neb INHALATION ×4 (00:14→15:38)
[2024-12-09 05:07] LABS: Basophils # 0.1 10^3/uL (0.0-0.1); Basophils % 1.1 %; Eosinophils # 0.2 10^3/uL (0.0-0.8); Eosinophils % 1.6 %; Hematocrit 43.6 % (37-53); Lymphocytes # 1.6 10^3/uL (0.8-4.8); Lymphocytes % 16.8 %; Mean Corpuscular HGB Conc 28.4 g/dL (30-55); Mean Corpuscular Hemoglobin 20.8 pg (27-33); Mean Platelet Volume 9.6 fL (7.4-10.4); Monocytes # 1.1 10^3/uL (0.2-0.9); Monocytes % 11.9 %; Neutrophils # 6.42 10^3/uL (1.8-7.7); Neutrophils % 68.3 %; Nucleated Red Blood Cells % 0 %; Platelet Count 307 10^3/cmm (157-399); Red Blood Count 5.97 10^6/uL (3.85-5.65); Red Cell Distribution Width 21.3 % (12.1-15.1)
[2024-12-09 05:28] LABS: Blood Urea Nitrogen 16 mg/dL (6-20); Carbon Dioxide 25 mmol/L (22-29); Chloride 103 mmol/L (98-107); Creatinine Clr Calc Pharmacy 252.5799; Glomerular Filtration Rate 223.3 mL/min (90-130); Glucose 167 mg/dL (65-115); Magnesium 1.9 mg/dL (1.7-2.3); Osmolality Calculated 295 mOsm/kg (285-295); Sodium 140 mmol/L (136-145)
[2024-12-09] MEDS: baclofen 10 mg Tablet 40 MG PO (05:39)
[2024-12-09] MEDS: clopidogrel 75 mg Tablet PO (05:39)
[2024-12-09 06:46] LABS: Glucose Point of Care 183 mg/dL (70-110)
[2024-12-09] MEDS: acetylcysteine 200 mg/mL MDV 10 mL 100 MG INHALATION (07:35)
[2024-12-09] MEDS: budesonide 0.5 mg/2 mL Neb INHALATION ×2 (07:35→20:09)
[2024-12-09] MEDS: FUROsemide 10 mg/mL SDV 2mL 20 MG IVP (08:46)
[2024-12-09] MEDS: cefepime 2,000 mg SDV 2000 MG IVP ×2 (08:46→22:09)
[2024-12-09] MEDS: gabapentin 300 mg Capsule 600 MG PO ×3 (08:47→22:08)
[2024-12-09] MEDS: buPROPion SR (12 HR) 150 mg Tablet PO ×2 (08:47→17:48)
[2024-12-09] MEDS: clindamycin 150 mg Capsule PO ×3 (08:47→22:09)
[2024-12-09] MEDS: insulin lispro 100 unit/1 mL SUBCUT ×3 (08:47→17:48)
[2024-12-09] MEDS: enoxaparin 100 mg/mL Syringe 90 MG SUBCUT ×2 (08:48→22:09)
[2024-12-09] MEDS: sennosides-docusate Tablet 1 TAB PO (08:48)
[2024-12-09] MEDS: digoxin 125 mcg Tablet PO (08:48)
--- NOTE | 2024-12-09 09:13 | PC.NURSE ---
Gave patient warm water enema per MD and patient request. Patient tolerated well. No results at this time.
[2024-12-09 09:40] LABS: Bilirubin Urine Negative (Negative); Blood Urine Negative (Negative); Glucose Urine UA Negative (Normal); Ketones Urine Negative (Negative); Leukocyte Esterase Urine Negative (Negative); Nitrate Urine Negative (Negative); Protein Urine Negative (Negative); Specific Gravity, Urine 1.006 (1.005-1.030); Urine Appearance Clear (CLEAR); Urine Color Yellow (Yellow); Urobilinogen Urine 0.2 mg/dL (Negative)
[2024-12-09 09:47] LABS: Add Urine Microscopic? YES; Bacteria Urine None Seen /hpf; RBC Urine 0-2 /hpf (0-2); Squamous Epithelial Cell Urine 0-5 /hpf (0-5); WBC Urine 0-5 /hpf (0-5)
[2024-12-09 10:01] LABS: Sperm Urine 1+ /hpf
[2024-12-09 11:06] LABS: Glucose Point of Care 176 mg/dL (70-110)
--- NOTE | 2024-12-09 13:12 | PM.PN ---
Subjective Subjective: Seen this morning. Heart rate still elevated into 130s. On 2 L nasal cannula. Asking when he will be able to go home. Urine culture growing gram-negative rods, final sensitivity is pending. Vitals/I&O/Wt Last Vital Signs Temp 97.5 F L 12/09/24 12:00 Pulse 128 H 12/09/24 12:00 Resp 16 12/09/24 12:00 BP 108/80 12/09/24 12:00 Pulse Ox 91 12/09/24 12:00 O2 Del Method Nasal Cannula 12/09/24 12:00 O2 Flow Rate 2 12/09/24 11:23 12/08/24 12/09/24 12/09/24 22:59 06:59 14:59 Intake Total 600 / 800 620 / 1420 Output Total 1000 / 3400 1000 / 4400 1300 / 1300 Balance -400 / -2600 -380 / -2980 -1300 / -1300 Weight last 48 hrs Weight 105.404 kg Weight 101 kg Weight 101.5 kg Weight 90.718 kg Physical Exam Narrative: Patient is awake and alert No active chest pain Currently on room air Abdomen distended nontender, soft Lower extremity mild skin mottling noted Cap refill more than 3 seconds Variable S1-S2 Awake and alert Nonfocal neuroexam Able to move upper extremities Patient is AOx4 Laying in bed appearing comfortable at this time. Data 12/09/24 04:04 12/09/24 04:04 Micro: Microbiology 12/07/24 19:40 Blood Culture - Preliminary Blood NEGATIVE TO DATE 12/07/24 19:35 Blood Culture - Preliminary Blood NEGATIVE TO DATE 12/07/24 17:08 Urine Culture - Preliminary Urine,Clean Catch Gram Negative Rods A&P Assessment and plan (1) Atrial fibrillation with rapid ventricular response: (2) Diabetes: Qualifiers: Diabetes mellitus complication detail: with other skin ulcer Diabetes mellitus complication status: with skin complications Diabetes mellitus fci insulin use: without terminal clerk use Diabetes mellitus type: type 2 Qualified Code(s): E11.622 - Type 2 diabetes mellitus with other skin ulcer (3) Retention of urine due to occlusion of Olivas catheter: (4) UTI (urinary tract infection): (5) Osteomyelitis hip: (6) 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: Qualifiers: Encounter type: initial encounter Qualified Code(s): S98.222A - Partial traumatic amputation of two or more left lesser toes, initial encounter (7) Sacral wound: (8) Wheelchair dependent: (9) New onset of congestive heart failure: (10) Sepsis: (11) Recurrent UTI: (12) Pressure ulcer of coccygeal region: (13) Pressure ulcer of right buttock, stage 4: (14) Pressure ulcers of skin of multiple topographic sites: Plan Sepsis related to Cauti Patient also has multiple pressure ulcers, history of chronic osteomyelitis recently finished IV antibiotic course 3 weeks ago As per the , wound care clinic has not commended any debridement Replace Olivas catheter Continue cefepime for E. coli urine culture history Patient has received septic bolus I would not continue IV fluids he does have high BNP, mild sign of fluid overload New onset CHF Low-dose Lasix considering na?ve Requested echo Tachyarrhythmia related CHF no active chest pain, no significant elevation of troponin, I did not appreciate any ST elevation that was read by machine, his EKG consistent with intermittent A-fib A-fib RVR Started amiodarone drip, given loading dose of digoxin Check magnesium, keep magnesium of 2, potassium of 4, check D-dimer to rule out thromboembolic disease CHADVASC: 5 Start therapeutic Lovenox will need Eliquis at discharge Chest x-ray unremarkable, discontinue doxycycline that he was taking at home, patient is not requiring oxygen Full code Diabetic diet consistent carb diet DVT prophylaxis: Therapeutic Lovenox 12/08/2024 Continue amiodarone drip at this time. ? Continue digoxin ? Continue antibiotics ? Awaiting urine culture ? Awaiting blood cultures ? Patient is status post 4 L normal saline bolus. Continue therapeutic Lovenox twice daily ? Continue cefepime Continue management as per H&P at this time. Check speech therapy evaluation today. 12/09/2024 Continue amiodarone drip. Patient remains in A-fib and tachycardic., Continue digoxin ? Consult cardiology for possible KARLY cardioversion since this is new onset A-fib ? Echo shows EF of 45% which is new. 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 Discussed with cardiology in detail. Will await recommendations. ? Urine culture positive for gram-negative rods. Final sensitivities are pending at this time ? Blood cultures are pending and negative to date. ? Continue cefepime 2 g every 12 hours. ? Patient passed speech therapy evaluation diet has been started. ? Continue therapeutic Lovenox. -Patient's wound care notes have been reviewed from 12/06/2024 Attestations Medical Necessity Statement*: More than 2 midnights anticipated Diagnoses Atrial fibrillation with rapid ventricular response I48.91 Type 2 diabetes mellitus with other skin ulcer, without long-term current use of insulin E11.622 Diabetes mellitus complication detail: with other skin ulcer Diabetes mellitus complication status: with skin complications Diabetes mellitus terminal clerk insulin use: without terminal clerk use Diabetes mellitus type: type 2 Retention of urine due to occlusion of Olivas catheter T83.198A; R33.8 UTI (urinary tract infection) N39.0 Osteomyelitis hip M86.9 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
--- NOTE | 2024-12-09 13:25 | PC.NURSE ---
Addendum entered by Ashley Light RN 12/09/24 13:39: provided all dressing supplies from home. Original Note: Patient's at bedside. assisted patient with bowel movement as per home routine. Patient had large formed brown stool. also performed dressing changes to chronic multiple wounds. Patient repositioned for comfort and tolerated all well.
--- NOTE | 2024-12-09 13:38 | P.CONIM_ITS ---
<Statement entered by Anderson Bower M.D - 12/09/24 22:08> Patient was evaluated and cared for in conjunction with an advanced practice practitioner. I personally examined the patient and reviewed the chart and all pertinent data including imaging, telemetry, and laboratory results. I discussed the patient in detail with the advanced practice practitioner. Please see their note for complete consult note, results and agreed upon plan of care for the patient. GENERAL: Patient is alert and oriented HEART: Regular S1 and S2 LUNGS: Clear to auscultation bilaterally EXTREMITIES: Lower extremities with no edema 1) Atrial flutter with RVR Patient has presented with new onset atrial fibrillation/flutter with RVR. Did not convert with amiodarone. Heart rate in 130s. We will plan on KARLY/ Cardioversion tomorrow. NPO past midnight Continue anticoagulation Mildly reduced LV systolic function. Likely secondary to atrial flutter with RVR. However as outpatient will plan on stress testing. Thank you for involving us with care of this patient. We will continue to follow. Please call with questions. Providers/Reason For Consult 2 Consulting Physician/Specialty*: Dr Bower, cardiology Reason for Consult*: atrial fibrillation with RVR Requesting Physician: Dr Perales Attending Physician: Cyndy Perales MD Primary Care Provider: Emelia Martínez History of Present Illness History of Present Illness David Chen is a 54 year old male with past medical history of CAD, history of STEMI in 2017, SHYAM to the RCA, has not been seen by [facility] cardiology since 2020. Additional history of quadriplegia (can move his arms), multiple pressure ulcers in treatment with wound clinic, presented to the emergency room with worsening shortness of breath, orthopnea PND. He did receive antibiotic therapy for possibility of catheter associated UTI, his helps him with urinary catheter changes at home. He was in atrial fibrillation with RVR, new onset, ventricular rates initially in the 140s. Was treated with diltiazem initially however due to hypotension was switched to amiodarone. Lactic acid 3.9 at admission, WBC normal, renal function normal. He has had bolus of amiodarone and initial infusion at 1 mg/min for 6 hours now reduced to 0.5 mg/min since midnight. He has received digoxin 250 mcg yesterday morning, and 2 subsequent doses of digoxin 125 mcg yesterday and today. Heart rates have ranged between 80 and 140 bpm. EKG 12/07/2024 shows atrial flutter, ventricular rate 140 bpm. Troponin baseline 20 -> 19 -> 19. BNP 958. Echocardiogram in 2021 showed LVEF 50 to 55%, technically difficult study. Mild aortic regurgitation. Echocardiogram 12/07/2024 with heart rate 92 bpm in atrial fibrillation, LVEF 45%, grade 2 diastolic dysfunction, global LV hypokinesis, mild to moderate mitral regurgitation. He has not noted any chest pain or pressure leading up to this episode, he has some sensation below the nipple line, but it is abnormal. Review of Systems 2 Card: Reports: palpitations, irregular heart rhythm and edema; Denies: chest pain, lightheadedness, syncope, pre-syncope or orthopnea Resp: Reports: dyspnea; Denies: productive cough or wheezing GI: Denies: hematochezia : Denies: hematuria Sarwat/Lymph: Denies: easy bleeding Medications/Allergies Home Medications Medication Instructions Recorded Confirmed Last Taken Type amitriptyline 10 mg tablet 10 mg PO BID 11/17/19 12/07/24 07/15/24 History ascorbate calcium (vitamin C) 500 500 mg PO BID 11/17/19 12/07/24 07/15/24 History mg tablet aspirin 81 mg tablet,delayed 81 mg PO QAM 11/17/19 12/07/24 07/15/24 History release (Adult Aspirin Regimen) baclofen 20 mg tablet See Rx Instructions .Route 11/17/19 12/07/24 07/15/24 History .COMPLEX PRN Pain (Scale Score 4-6) clopidogrel 75 mg tablet 75 mg PO QAM 11/17/19 12/07/24 12/07/24 08:00 History fluticasone propionate 50 2 spray intranasal DAILY PRN 11/17/19 12/07/24 07/15/24 History mcg/actuation nasal Allergy Symptoms spray,suspension (Flonase Allergy Relief) gabapentin 300 mg capsule 600 mg PO TID 11/17/19 12/07/24 07/15/24 History methenamine hippurate 1 gram tablet 1 gm PO BID 11/17/19 12/07/24 07/15/24 History paroxetine HCl 20 mg tablet 20 mg PO DAILY 11/17/19 12/07/24 07/15/24 History Lactobacillus acidophilus and 1 cap PO BID 07/13/22 12/07/24 07/15/24 History rhamnosus 15 billion cell capsule (Probiotic) cholecalciferol (vitamin D3) 25 25 mcg PO BEDTIME 07/13/22 12/07/24 07/14/24 History mcg (1,000 unit) capsule (Vitamin D3) multivitamin 1 tab PO DAILY 07/13/22 12/07/24 07/15/24 History vitamin A 2,400 mcg capsule 2,400 mcg PO BEDTIME 07/13/22 12/07/24 07/14/24 History bupropion HCl 150 mg tablet,12 hr 150 mg PO BID 08/14/22 12/07/24 07/15/24 History sustained-release coenzyme Q10 100 mg capsule 100 mg PO BEDTIME 08/14/22 12/07/24 07/14/24 History (CoQ-10) d-mannose 500 mg capsule 500 mg PO BID 08/14/22 12/07/24 07/15/24 History esomeprazole magnesium 20 mg 20 mg PO DAILY 08/14/22 12/07/24 07/15/24 History capsule,delayed release (Nexium) metformin 1,000 mg tablet 1,000 mg PO BID 08/14/22 12/07/24 12/07/24 08:00 History calcium 333 mg-vit D3 133 1 tab PO BEDTIME 02/26/23 12/07/24 07/14/24 History unit-magnesium 133 mg-zinc 5 mg tablet (Jevon Mag Zinc Plus D3) fluticasone fur. 100 mcg-umeclid 1 inh inhalation DAILY #60 ea 02/28/23 12/07/24 07/15/24 Rx 62.5 mcg-vilant 25 mcg inhalat.powder (Trelegy Ellipta) hypochlorus acid 0.02 %-sod 2 spray topical DAILY PRN dryness 07/15/24 12/07/24 07/15/24 History hypochl-sod chl-elec. water topical spray guaifenesin 100 mg tablet 400 mg PO Q4H PRN Congestion 12/07/24 12/07/24 Unknown History Allergies Allergy/AdvReac Type Severity Reaction Status Date / Time Penicillins Allergy THROAT Verified 12/07/24 16:26 SWELLS SHUT Sulfa (Sulfonamide Allergy HIVES Verified 12/07/24 16:26 Antibiotics) linezolid [From Zyvox] AdvReac ADR-Cramping Verified 12/07/24 16:26 of the Muscles Current Medications Generic Name Dose Route Start Last Admin Trade Name Freq PRN Reason Stop Dose Admin Acetylcysteine 100 mg 12/08/24 08:00 12/09/24 07:35 Acetylcysteine 200 Mg/Ml Mdv 10 Ml INHALATION 100 mg BID.RESPIRATORY OPAL Administration Albuterol/Ipratropium 3 ml 12/07/24 20:43 12/09/24 00:14 Ipratropium-Albuterol 3 Ml Neb INHALATION 3 ml Q6H PRN Administration SHORTNESS OF BREATH Albuterol/Ipratropium 3 ml 12/08/24 08:00 12/09/24 11:23 Ipratropium-Albuterol 3 Ml Neb INHALATION 3 ml QID.RESPIRATORY OPAL Administration Atorvastatin Calcium 40 mg 12/08/24 16:00 12/08/24 16:30 Atorvastatin 40 Mg Tablet PO 40 mg DAILY@16 OPAL Administration Baclofen 40 mg 12/08/24 06:00 12/09/24 05:39 Baclofen 10 Mg Tablet PO 40 mg QAM OPAL Administration Baclofen 80 mg 12/08/24 16:00 12/08/24 16:30 Baclofen 10 Mg Tablet PO 80 mg DAILY@1600 OPAL Administration Baclofen 60 mg 12/07/24 21:30 12/08/24 21:27 Baclofen 10 Mg Tablet PO 60 mg BEDTIME OPAL Administration Budesonide 0.5 mg 12/08/24 08:00 12/09/24 07:35 Budesonide 0.5 Mg/2 Ml Neb INHALATION 0.5 mg BID.RESPIRATORY OPAL Administration Bupropion HCl 150 mg 12/08/24 09:00 12/09/24 08:47 Bupropion Sr (12 Hr) 150 Mg Tablet PO 150 mg BID OPAL Administration Cefepime HCl 2,000 mg 12/08/24 09:00 12/09/24 08:46 Cefepime 2,000 Mg Sdv IVP 2,000 mg Q12H OPAL Administration Protocol Clindamycin HCl 150 mg 12/07/24 21:00 12/09/24 08:47 Clindamycin 150 Mg Capsule PO 150 mg TID OPAL Administration Protocol Clopidogrel Bisulfate 75 mg 12/08/24 06:00 12/09/24 05:39 Clopidogrel 75 Mg Tablet PO 75 mg QAM OPAL Administration Digoxin 125 mcg 12/08/24 09:00 12/09/24 08:48 Digoxin 125 Mcg Tablet PO 125 mcg DAILY OPAL Administration Enoxaparin Sodium 90 mg 12/07/24 20:43 12/09/24 08:48 Enoxaparin 100 Mg/Ml Syringe SUBCUT 90 mg Q12H OPAL Administration Furosemide 20 mg 12/08/24 09:00 12/09/24 08:46 Furosemide 10 Mg/Ml Sdv 2ml IVP 20 mg Q24H OPAL Administration Gabapentin 600 mg 12/07/24 21:00 12/09/24 08:47 Gabapentin 300 Mg Capsule PO 600 mg TID OPAL Administration Amiodarone HCl/Dextrose 360 mg in 200 mls @ 0 mls/hr 12/07/24 17:58 12/09/24 01:34 Nexterone IV 0.5 mg/min .Q0M OPAL 16.67 mls/hr Administration Protocol Per Protocol Insulin Human Lispro 0 unit 12/08/24 08:00 12/09/24 11:28 Insulin Lispro 100 Unit/1 Ml SUBCUT 4 unit TIDWM OPAL Administration Protocol Senna/Docusate Sodium 1 tab 12/08/24 09:00 12/09/24 08:48 Sennosides-Docusate Tablet PO 1 tab DAILY OPAL Administration PFSH Acute 2 PFSH: Medical History Wheelchair dependent Diabetes no insulin Hypertension 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 Roy along with I&D of right hemiscrotal abscess by Dr. Alberts History of percutaneous endoscopic gastrostomy History of tracheostomy subsequently removed, for prolonged ventilation History of percutaneous coronary intervention RCA Status post excisional debridement buttocks History of lumbar surgery History of cervical spinal surgery Family History Mother Hypertension Father Arthritis Other Pressure ulcer of right buttock, stage 4 Denies family history of Anesthesia complication Bleeding disorder Social History Smoking and tobacco/nicotine status: former use of tobacco/nicotine Alcohol intake: never Substance/Drug Use: never Caregiver/support person: Yes Lives independently: No Household members: significant other Marital status: Current occupational status: disabled Vitals/I&O/Wt Last Vital Signs Temp 97.5 F L 12/09/24 12:00 Pulse 128 H 12/09/24 12:00 Resp 16 12/09/24 12:00 BP 108/80 12/09/24 12:00 Pulse Ox 91 12/09/24 12:00 O2 Del Method Nasal Cannula 12/09/24 12:00 O2 Flow Rate 2 12/09/24 11:23 12/08/24 12/09/24 12/09/24 22:59 06:59 14:59 Intake Total 600 / 1420 620 / 1420 Output Total 1000 / 4400 1000 / 4400 1300 / 1300 Balance -400 / -2980 -380 / -2980 -1300 / -1300 Weight last 48 hrs Weight 232 lb 6 oz Weight 222 lb 10.67 oz Weight 223 lb 12.307 oz Weight 200 lb Physical Exam 2 Const: COMMON NORMALS: no acute distress and patient oriented x3 GENERAL APPEARANCE: cooperative and comfortable ORIENTATION/CONSCIOUSNESS: Yes awake, Yes oriented to person, Yes oriented to place and Yes oriented to time Chest: COMMONS NORMALS: normal inspection of the chest and normal palpation of entire chest wall CHEST: Yes Symmetrical chest wall rise Resp: COMMON NORMALS: normal respiratory effort, No retractions, No use of accessory muscles and clear to auscultation bilaterally EFFORT & INSPECTION: Yes symmetric chest movement AUSCULTATION: clear to auscultation bilaterally Cardio: COMMON NORMALS: regular rate, S1 normal heart sound present, S2 normal heart sound present, No gallops present (Cardio), No clicks present (Cardio), No murmurs present (Cardio) and No rub (Cardio) RATE: regular rate RHYTHM: a bnormal rhythm regularly irregular HEART SOUNDS: S1 normal heart sound present and S2 normal heart sound present PERIPHERAL PULSES: radial pulses present Extremity: COMMON NORMALS: no pedal edema Neuro: COMMON NORMALS: patient oriented x3 and moves all extremities S ENSORIUM/ORIENTATION: Yes oriented to person, Yes oriented to place and Yes oriented to time Data 12/09/24 04:04 12/09/24 04:04 Micro: Microbiology 12/07/24 19:40 Blood Culture - Preliminary Blood NEGATIVE TO DATE 12/07/24 19:35 Blood Culture - Preliminary Blood NEGATIVE TO DATE 12/07/24 17:08 Urine Culture - Preliminary Urine,Clean Catch Gram Negative Rods A&P Assessment and plan (1) Atrial fibrillation with rapid ventricular response: (2) New onset of congestive heart failure: (3) Hypertension: Qualifiers: Hypertension type: primary hypertension Qualified Code(s): I10 - Essential (primary) hypertension Plan New onset atrial flutter with RVR, has not cardioverted with amiodarone and digoxin. His LVEF has decreased, perhaps due to RVR. Discussed cardioversion with the patient and his , questions answered, he is in agreement to proceed with KARLY guided cardioversion tomorrow. NPO after midnight tonight. Continue amiodarone infusion 0.5mg/min and digoxin 125mcg daily. Coding Level of Care Code Acute Code for [facility] Fwd Diagnoses Atrial fibrillation with rapid ventricular response I48.91 New onset of congestive heart failure I50.9 Primary hypertension I10 Hypertension type: primary hypertension
--- NOTE | 2024-12-09 15:54 | PC.SOCIAL ---
IMM updated IMM dated and initialed and placed in chart and copy given to patient
[2024-12-09] MEDS: baclofen 10 mg Tablet 80 MG PO (16:01)
[2024-12-09] MEDS: atorvastatin 40 mg Tablet PO (16:07)
[2024-12-09 17:12] LABS: Glucose Point of Care 186 mg/dL (70-110)
[2024-12-09] MEDS: ipratropium 0.5 mg/2.5 mL Neb INHALATION (20:09)
[2024-12-09] MEDS: levalbuterol 0.63 mg/3 mL Neb INHALATION (20:09)
[2024-12-09] MEDS: acetylcysteine 200 mg/mL SDV 4 mL 100 MG INHALATION (20:09)
[2024-12-09 21:00] LABS: Glucose Point of Care 166 mg/dL (70-110)
[2024-12-09] MEDS: baclofen 10 mg Tablet 60 MG PO (22:08)
[2024-12-10] VITALS (27 sets, daily range): BP systolic 88–116; BP diastolic 62–84; PULSE 67–128; RESP 14–25; TEMP 36.5–37.4; O2SAT 90–95; BMI 31.7
[2024-12-10 03:58] LABS: Basophils # 0.1 10^3/uL (0.0-0.1); Basophils % 0.9 %; Eosinophils # 0.2 10^3/uL (0.0-0.8); Hematocrit 43.3 % (37-53); Lymphocytes # 1.9 10^3/uL (0.8-4.8); Lymphocytes % 23.2 %; Mean Corpuscular HGB Conc 28.4 g/dL (30-55); Mean Corpuscular Hemoglobin 20.5 pg (27-33); Mean Corpuscular Volume 72.2 fl (82-101); Mean Platelet Volume 9.6 fL (7.4-10.4); Monocytes % 12.2 %; Neutrophils # 4.89 10^3/uL (1.8-7.7); Neutrophils % 60.2 %; Nucleated Red Blood Cells % 0 %; Platelet Count 281 10^3/cmm (157-399); Red Cell Distribution Width 21.1 % (12.1-15.1); White Blood Count 8.11 10^3/uL (3.29-11.43)
[2024-12-10 04:27] LABS: Alanine Aminotransferase 54 U/L (0-41); Albumin Level 3.6 g/dL (3.5-5.2); Alkaline Phosphatase 91 U/L (40-130); Anion Gap 15.8 (5-19); Aspartate Amino Transferase 30 U/L (0-40); Blood Urea Nitrogen 16 mg/dL (6-20); Calcium 9.1 mg/dL (8.5-10.5); Carbon Dioxide 25 mmol/L (22-29); Chloride 100 mmol/L (98-107); Globulin 2.8 g/dL (1.3-4.6); Glomerular Filtration Rate 223.3 mL/min (90-130); Glucose 130 mg/dL (65-115); Magnesium 1.9 mg/dL (1.7-2.3); Osmolality Calculated 287 mOsm/kg (285-295); Potassium 3.8 mmol/L (3.5-5.1); Sodium 137 mmol/L (136-145); Total Bilirubin 0.3 mg/dL (0.15-1.2); Total Protein 6.4 g/dL (6.6-8.7)
[2024-12-10] MEDS: clopidogrel 75 mg Tablet PO (06:05)
[2024-12-10] MEDS: baclofen 10 mg Tablet 40 MG PO (06:06)
[2024-12-10 06:32] LABS: Glucose Point of Care 184 mg/dL (70-110)
[2024-12-10] MEDS: acetylcysteine 200 mg/mL SDV 4 mL 100 MG INHALATION (08:11)
[2024-12-10] MEDS: ipratropium 0.5 mg/2.5 mL Neb INHALATION ×4 (08:11→22:40)
[2024-12-10] MEDS: budesonide 0.5 mg/2 mL Neb INHALATION ×2 (08:11→22:40)
[2024-12-10] MEDS: levalbuterol 0.63 mg/3 mL Neb INHALATION ×4 (08:11→22:40)
--- NOTE | 2024-12-10 08:38 | W.PM.OPSUD ---
Surgery/Procedure H&P Update DATE OF PROCEDURE: December 10, 2024 DATE H&P PERFORMED: 12/09/24 H&P UPDATE INFORMATION: I have reviewed H&P completed within last 30 days, I have examined patient prior to procedure and No changes to prior documentation PREOP DIAGNOSIS: Atrial flutter with RVR PRIMARY INDICATION FOR PROCEDURE: Atrial flutter with RVR PLANNED PROCEDURE: Transesophageal echocardiogram with cardioversion Anesthesia team is available for the procedure PATIENT REASSESSED PRIOR TO SEDATION, WITH NO CHANGE NOTED: Yes
[2024-12-10] MEDS: enoxaparin 100 mg/mL Syringe 90 MG SUBCUT (08:40)
--- NOTE | 2024-12-10 08:40 | ANES.PREANE2 ---
Pre-Anesthetic Assessment Height/Weight: Height 1.8 m Weight 103.164 kg Temp Pulse Resp BP Pulse Ox O2 Del Method O2 Flow Rate 97.9 F 128 H 16 109/82 95 Nasal Cannula 2 12/10/24 07:35 12/10/24 08:12 12/10/24 08:12 12/10/24 07:35 12/10/24 08:12 12/10/24 08:12 12/10/24 08:12 Preop Diagnosis: Atrial flutter with RVR KARLY/Cardioversion Familial anesthetic complications: None Was Beta Marlene taken within 24 hours: N/A Was Clonidine taken within 24 hours: N/A Social No alcohol and No tobacco Exam alert, oriented x 3, clear to auscultation bilaterally and regular rate & rhythm Airway Mallampati: Class II CV/HEM Atrial Fibrillation and Coronary Artery Disease (stents > 1 year ago) EF 45% GI Gastroesophageal Reflux Disease Metabolic Diabetes Mellitus Neuropsych C5-6 spinal injury w/ paraplegia Anesthetic Plan ASA status: 4 Anesthesia: MAC Risk of > 500 ml blood loss (7ml/kg in children): No Medications/Allergies Home Medications Medication Instructions Recorded Confirmed Last Taken Type amitriptyline 10 mg tablet 10 mg PO BID 11/17/19 12/07/24 07/15/24 History ascorbate calcium (vitamin C) 500 500 mg PO BID 11/17/19 12/07/24 07/15/24 History mg tablet aspirin 81 mg tablet,delayed 81 mg PO QAM 11/17/19 12/07/24 07/15/24 History release (Adult Aspirin Regimen) baclofen 20 mg tablet See Rx Instructions .Route 11/17/19 12/07/24 07/15/24 History .COMPLEX PRN Pain (Scale Score 4-6) clopidogrel 75 mg tablet 75 mg PO QAM 11/17/19 12/07/24 12/07/24 08:00 History fluticasone propionate 50 2 spray intranasal DAILY PRN 11/17/19 12/07/24 07/15/24 History mcg/actuation nasal Allergy Symptoms spray,suspension (Flonase Allergy Relief) gabapentin 300 mg capsule 600 mg PO TID 11/17/19 12/07/24 07/15/24 History methenamine hippurate 1 gram tablet 1 gm PO BID 11/17/19 12/07/24 07/15/24 History paroxetine HCl 20 mg tablet 20 mg PO DAILY 11/17/19 12/07/24 07/15/24 History Lactobacillus acidophilus and 1 cap PO BID 07/13/22 12/07/24 07/15/24 History rhamnosus 15 billion cell capsule (Probiotic) cholecalciferol (vitamin D3) 25 25 mcg PO BEDTIME 07/13/22 12/07/24 07/14/24 History mcg (1,000 unit) capsule (Vitamin D3) multivitamin 1 tab PO DAILY 07/13/22 12/07/24 07/15/24 History vitamin A 2,400 mcg capsule 2,400 mcg PO BEDTIME 07/13/22 12/07/24 07/14/24 History bupropion HCl 150 mg tablet,12 hr 150 mg PO BID 08/14/22 12/07/24 07/15/24 History sustained-release coenzyme Q10 100 mg capsule 100 mg PO BEDTIME 08/14/22 12/07/24 07/14/24 History (CoQ-10) d-mannose 500 mg capsule 500 mg PO BID 08/14/22 12/07/24 07/15/24 History esomeprazole magnesium 20 mg 20 mg PO DAILY 08/14/22 12/07/24 07/15/24 History capsule,delayed release (Nexium) metformin 1,000 mg tablet 1,000 mg PO BID 08/14/22 12/07/24 12/07/24 08:00 History calcium 333 mg-vit D3 133 1 tab PO BEDTIME 02/26/23 12/07/24 07/14/24 History unit-magnesium 133 mg-zinc 5 mg tablet (Jevon Mag Zinc Plus D3) fluticasone fur. 100 mcg-umeclid 1 inh inhalation DAILY #60 ea 02/28/23 12/07/24 07/15/24 Rx 62.5 mcg-vilant 25 mcg inhalat.powder (Trelegy Ellipta) hypochlorus acid 0.02 %-sod 2 spray topical DAILY PRN dryness 07/15/24 12/07/24 07/15/24 History hypochl-sod chl-elec. water topical spray guaifenesin 100 mg tablet 400 mg PO Q4H PRN Congestion 12/07/24 12/07/24 Unknown History Allergies Allergy/AdvReac Type Severity Reaction Status Date / Time Penicillins Allergy THROAT Verified 12/07/24 16:26 SWELLS SHUT Sulfa (Sulfonamide Allergy HIVES Verified 12/07/24 16:26 Antibiotics) linezolid [From Zyvox] AdvReac ADR-Cramping Verified 12/07/24 16:26 of the Muscles Current Medications Generic Name Dose Route Start Last Admin Trade Name Kameronq PRN Reason Stop Dose Admin Acetylcysteine 100 mg 12/09/24 20:00 12/10/24 08:11 Acetylcysteine 200 Mg/Ml Sdv 4 Ml INHALATION 100 mg BID.RESPIRATORY OPAL Administration Atorvastatin Calcium 40 mg 12/08/24 16:00 12/09/24 16:07 Atorvastatin 40 Mg Tablet PO 40 mg DAILY@16 OPAL Administration Baclofen 40 mg 12/08/24 06:00 12/10/24 06:06 Baclofen 10 Mg Tablet PO 40 mg QAM OPAL Administration Baclofen 80 mg 12/08/24 16:00 12/09/24 16:01 Baclofen 10 Mg Tablet PO 80 mg DAILY@1600 OPAL Administration Baclofen 60 mg 12/07/24 21:30 12/09/24 22:08 Baclofen 10 Mg Tablet PO 60 mg BEDTIME OPAL Administration Budesonide 0.5 mg 12/08/24 08:00 12/10/24 08:11 Budesonide 0.5 Mg/2 Ml Neb INHALATION 0.5 mg BID.RESPIRATORY OPAL Administration Bupropion HCl 150 mg 12/08/24 09:00 12/09/24 17:48 Bupropion Sr (12 Hr) 150 Mg Tablet PO 150 mg BID OPAL Administration Cefepime HCl 2,000 mg 12/08/24 09:00 12/09/24 22:09 Cefepime 2,000 Mg Sdv IVP 2,000 mg Q12H OPAL Administration Protocol Clindamycin HCl 150 mg 12/07/24 21:00 12/09/24 22:09 Clindamycin 150 Mg Capsule PO 150 mg TID OPAL Administration Protocol Clopidogrel Bisulfate 75 mg 12/08/24 06:00 12/10/24 06:05 Clopidogrel 75 Mg Tablet PO 75 mg QAM OPAL Administration Digoxin 125 mcg 12/08/24 09:00 12/09/24 08:48 Digoxin 125 Mcg Tablet PO 125 mcg DAILY OPAL Administration Enoxaparin Sodium 90 mg 12/07/24 20:43 12/09/24 22:09 Enoxaparin 100 Mg/Ml Syringe SUBCUT 90 mg Q12H OPAL Administration Furosemide 20 mg 12/08/24 09:00 12/09/24 08:46 Furosemide 10 Mg/Ml Sdv 2ml IVP 20 mg Q24H OPAL Administration Gabapentin 600 mg 12/07/24 21:00 12/09/24 22:08 Gabapentin 300 Mg Capsule PO 600 mg TID OPAL Administration Amiodarone HCl/Dextrose 360 mg in 200 mls @ 0 mls/hr 12/07/24 17:58 12/10/24 03:06 Nexterone IV 0.5 mg/min .Q0M OPAL 16.67 mls/hr Administration Protocol Per Protocol Insulin Human Lispro 0 unit 12/08/24 08:00 12/09/24 17:48 Insulin Lispro 100 Unit/1 Ml SUBCUT 6 unit TIDWM OPAL Administration Protocol Ipratropium [place] 0.5 mg 12/09/24 20:00 12/10/24 08:11 Ipratropium 0.5 Mg/2.5 Ml Neb INHALATION 0.5 mg QID.RESPIRATORY OPAL Administration Levalbuterol HCl 0.63 mg 12/09/24 20:00 12/10/24 08:11 Levalbuterol 0.63 Mg/3 Ml Neb INHALATION 0.63 mg QID.RESPIRATORY OPAL Administration Senna/Docusate Sodium 1 tab 12/08/24 09:00 12/09/24 08:48 Sennosides-Docusate Tablet PO 1 tab DAILY OPAL Administration PFSH Anesthesia Medical History Wheelchair dependent Diabetes no insulin Hypertension 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 Roy along with I&D of right hemiscrotal abscess by Dr. Alberts History of percutaneous endoscopic gastrostomy History of tracheostomy subsequently removed, for prolonged ventilation History of percutaneous coronary intervention RCA Status post excisional debridement buttocks History of lumbar surgery History of cervical spinal surgery Family History Mother Hypertension Father Arthritis Other Pressure ulcer of right buttock, stage 4 Denies family history of Anesthesia complication Bleeding disorder Social History Smoking and tobacco/nicotine status: former use of tobacco/nicotine Alcohol intake: never Substance/Drug Use: never Caregiver/support person: Yes Lives independently: No Household members: significant other Marital status: Current occupational status: disabled Data Anesthesia 12/10/24 02:28 12/10/24 02:28 Short CBC 12/09/24 12/10/24 Range/Units 04:04 02:28 WBC 9.40 8.11 (3.29-11.43) 10^3/uL Hgb 12.40 12.30 (11.27-16.99) g/dL Hct 43.6 43.3 (37-53) % MCV 73.0 L 72.2 L (82-101) fl Plt Count 307 281 (157-399) 10^3/cmm Neut % (Auto) 68.3 60.2 % Neut # (Auto) 6.42 4.89 (1.8-7.7) 10^3/uL BMP 12/09/24 12/10/24 04:04 02:28 Sodium 140 137 Potassium 4.0 3.8 Chloride 103 100 Carbon Dioxide 25 25 BUN 16 16 Creatinine 0.4 L 0.4 L Glucose 167 H 130 H Calcium 9.0 9.1 Liver Function 12/10/24 Range/Units 02:28 Total Bilirubin 0.3 (0.15-1.2) mg/dL AST 30 (0-40) U/L ALT 54 H (0-41) U/L Alkaline Phosphatase 91 (40-130) U/L Albumin 3.6 (3.5-5.2) g/dL Urine 12/09/24 Range/Units 09:30 Urine Color Yellow (Yellow) Urine Appearance Clear (CLEAR) Urine pH 5.0 (5-7) Ur Specific [place] 1.006 (1.005-1.030) Urine Protein Negative (Negative) Urine Glucose (UA) Negative (Normal) Urine Ketones Negative (Negative) Urine Nitrate Negative (Negative) Urine Bilirubin Negative (Negative) Ur Leukocyte Esterase Negative (Negative) Urine RBC 0-2 (0-2) /hpf Urine WBC 0-5 (0-5) /hpf Microbiology 12/07/24 17:08 Urine Culture - Final Urine,Clean Catch Escherichia coli Cardiac Studies: Echocardiogram 12/07/24
[2024-12-10] MEDS: sodium chloride 0.9% 1,000 ML 30 ML IV (08:43)
--- NOTE | 2024-12-10 09:14 | PM.PROC ---
Procedure Note: Date of procedure: 12/10/24 Pre-procedure diagnosis: Atrial flutter with RVR Post-procedure diagnosis: other (Normal sinus rhythm) Procedure: KARLY/ Cardioversion: After anesthesia team sedated with the patient, we proceeded with advancing KARLY probe. Left atrial appendage thrombus was ruled out. We then proceeded with successful cardioversion back to normal sinus rhythm with 200 J synchrnized shock x 1. Performing Provider: Anderson Bower Complications: None Condition: stable Disposition: floor Coding Level of Care Code Acute Code for [facility]
--- NOTE | 2024-12-10 09:36 | ECG_ITS ---
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 Measurements Intervals [place] Rate: 76 P: 66 HI: 182 QRS: 55 QRSD: 89 T: 90 QT: 389 QTc: 438 Interpretive Statements SINUS RHYTHM SEPTAL MYOCARDIAL INFARCTION , OF INDETERMINATE AGE [40+ ms Q WAVE IN V1/V2] Compared to ECG 12/07/2024 21:25:55 Atrial flutter no longer present Incomplete right bundle-branch block no longer present ST (T wave) deviation no longer present Myocardial infarct finding still present Electronically Signed On 12-10-2024 13:16:44 CORE DIPPER by Anderson Bower M.D. [email or web address]
--- NOTE | 2024-12-10 09:45 | ANE.PACU2 ---
Inpatient post-anesthesia follow up: Airway intact: Yes Vital signs: Temperature 98.3 F Pulse Rate 96 Respiratory Rate 22 Blood Pressure 111/75 Pulse Oximetry 94 Oxygen Delivery Me thod Nasal Cannula Oxygen Flow Rate 1 Fraction of Inspir ed Oxygen Hydration adequate: Yes Nausea and vomiting: No Pain level: 1 Mental status: Baseline
[2024-12-10] MEDS: buPROPion SR (12 HR) 150 mg Tablet PO ×2 (10:40→16:31)
[2024-12-10] MEDS: FUROsemide 10 mg/mL SDV 2mL 20 MG IVP (10:40)
[2024-12-10] MEDS: clindamycin 150 mg Capsule PO (10:40)
[2024-12-10] MEDS: gabapentin 300 mg Capsule 600 MG PO ×3 (10:40→22:10)
[2024-12-10] MEDS: cefepime 2,000 mg SDV 2000 MG IVP (10:41)
[2024-12-10] MEDS: amiodarone 200 mg Tablet 400 MG PO ×2 (10:41→16:32)
[2024-12-10 12:04] LABS: Glucose Point of Care 190 mg/dL (70-110)
[2024-12-10] MEDS: insulin lispro 100 unit/1 mL SUBCUT ×2 (12:44→18:31)
--- NOTE | 2024-12-10 14:02 | P.PN_ITS ---
Subjective 2 Subjective: Patient was cardioverted successfully back to NSR. Vitals/I&O/Wt Last Vital Signs Temp 97.7 F 12/10/24 11:35 Pulse 86 12/10/24 11:35 Resp 22 H 12/10/24 11:35 BP 88/66 12/10/24 11:35 Pulse Ox 93 12/10/24 11:35 O2 Del Method Nasal Cannula 12/10/24 11:35 O2 Flow Rate 1 12/10/24 11:33 12/09/24 12/10/24 12/10/24 22:59 06:59 14:59 Intake Total 200 / 400 Output Total 1100 / 2400 650 / 3050 Balance -1100 / -2200 -450 / -2650 Weight last 48 hrs Weight 227 lb 7 oz Weight 232 lb 6 oz Physical Exam 2 Narrative: GENERAL: Patient is alert, awake and oriented x3. [] NECK: No jugular vein distension. [] HEENT: No cyanosis. No icterus. No pallor. [] HEART: Regular S1 and S2. No murmur, rub or gallop. [] LUNGS: Decreased air entry bilaterally CENTRAL NERVOUS SYSTEM: Grossly nonfocal. [] EXTREMITIES: Lower extremities with 1+ edema bilaterally. Data 12/11/24 01:30 12/11/24 01:30 Micro: Microbiology 12/07/24 17:08 Urine Culture - Final Urine,Clean Catch Escherichia coli A&P Assessment and plan (1) Atrial fibrillation with rapid ventricular response: (2) New onset of congestive heart failure: (3) Hypertension: Qualifiers: Hypertension type: primary hypertension Qualified Code(s): I10 - Essential (primary) hypertension Plan Patient cardioverted back to sinus rhythm. We will switch amiodarone to p.o. 400 twice daily today. Switching Lovenox to Eliquis 5 mg twice daily. Has significant LV dysfunction.Starting metoprolol 25mg BID. If blood pressure allows, can consider entresto Thank you for involving us with care of this patient. We will continue to follow. Please call with questions. Attestations 2 Medical Necessity Statement*: Care expected to cross 2 midnights. Coding Level of Care Code Acute Code for [facility] Diagnoses Atrial fibrillation with rapid ventricular response I48.91 New onset of congestive heart failure I50.9 Primary hypertension I10 Hypertension type: primary hypertension
--- NOTE | 2024-12-10 14:36 | USCV_ITS ---
David Chen Age: 54 Gender: M : 1970 Exam Date: 12/10/2024 08:58 Ordering Phys: Isadora Higgins Technologist: Lance Begum [place] [facility] [place]: atrial flutter BP: / HR: Rhythm: Sinus Technical Quality: Adequate MEASUREMENTS (Male / Female) Normal Values Medications Per anesthesia team Complications None Proc. Components After anesthesia team sedated patient we proceeded with advancing KARLY probe and obtained images. FINDINGS Left Ventricle LV systolic function is mild to moderately reduced Right Ventricle Normal in size. Appears hypokinetic Right Atrium Normal in size Left Atrium Grossly appears normal LA Appendage No left atrial appendage thrombus IA Septum Grossly normal Mitral Valve Structurally normal Aortic Valve Structurally normal aortic valve. Mild aortic regurgitation Tricuspid Valve Structurally normal Pulmonic Valve Grossly normal Pericardium Normal Aorta Normal CONCLUSIONS LV systolic function is mild to moderately reduced RV appears hypokinetic No left atrial appendage thrombus Mild aortic regurgitation Anderson Bower MD (Electronically Signed) Final Date: 10 December 2024 10:58 S
--- NOTE | 2024-12-10 15:19 | P.PN_ITS ---
Subjective 2 Subjective: Seen this morning. Patient is in sinus rhythm. Seen status post KARLY and cardioversion. Discussed with cardiology. Patient still hypoxic requiring oxygen. He is still under the effect of anesthesia. Significant other is present at bedside. Urine culture has resulted. E. coli sensitive to beta-lactam's and nitrofurantoin. Vitals/I&O/Wt Last Vital Signs Temp 97.7 F 12/10/24 11:35 Pulse 86 12/10/24 11:35 Resp 22 H 12/10/24 11:35 BP 88/66 12/10/24 11:35 Pulse Ox 93 12/10/24 11:35 O2 Del Method Nasal Cannula 12/10/24 11:35 O2 Flow Rate 1 12/10/24 11:33 12/10/24 12/10/24 12/10/24 06:59 14:59 22:59 Intake Total 200 / 400 73 / 73 Output Total 650 / 3050 Balance -450 / -2650 73 / 73 Weight last 48 hrs Weight 103.164 kg Weight 105.404 kg Physical Exam 2 Narrative: Patient is awake and alert No active chest pain Currently on room air Abdomen distended nontender, soft Lower extremity mild skin mottling noted Cap refill more than 3 seconds Variable S1-S2 Awake and alert Nonfocal neuroexam Able to move upper extremities Patient is AOx4 Laying in bed appearing comfortable at this time. Regular rate rhythm, sinus rhythm. Data 12/10/24 02:28 12/10/24 02:28 Micro: Microbiology 12/07/24 17:08 Urine Culture - Final Urine,Clean Catch Escherichia coli A&P Assessment and plan (1) Atrial fibrillation with rapid ventricular response: (2) Diabetes: Qualifiers: Diabetes mellitus complication detail: with other skin ulcer Diabetes mellitus complication status: with skin complications Diabetes mellitus senior living insulin use: without senior living use Diabetes mellitus type: type 2 Qualified Code(s): E11.622 - Type 2 diabetes mellitus with other skin ulcer (3) Retention of urine due to occlusion of Olivas catheter: (4) UTI (urinary tract infection): (5) Osteomyelitis hip: (6) 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: Qualifiers: Encounter type: initial encounter Qualified Code(s): S98.222A - Partial traumatic amputation of two or more left lesser toes, initial encounter (7) Sacral wound: (8) Wheelchair dependent: (9) New onset of congestive heart failure: (10) Sepsis: (11) Recurrent UTI: (12) Pressure ulcer of coccygeal region: (13) Pressure ulcer of right buttock, stage 4: (14) Pressure ulcers of skin of multiple topographic sites: Plan Sepsis related to Cauti Patient also has multiple pressure ulcers, history of chronic osteomyelitis recently finished IV antibiotic course 3 weeks ago As per the , wound care clinic has not commended any debridement Replace Olivas catheter Continue cefepime for E. coli urine culture history Patient has received septic bolus I would not continue IV fluids he does have high BNP, mild sign of fluid overload New onset CHF Low-dose Lasix considering na?ve Requested echo Tachyarrhythmia related CHF no active chest pain, no significant elevation of troponin, I did not appreciate any ST elevation that was read by machine, his EKG consistent with intermittent A-fib A-fib RVR Started amiodarone drip, given loading dose of digoxin Check magnesium, keep magnesium of 2, potassium of 4, check D-dimer to rule out thromboembolic disease CHADVASC: 5 Start therapeutic Lovenox will need Eliquis at discharge Chest x-ray unremarkable, discontinue doxycycline that he was taking at home, patient is not requiring oxygen Full code Diabetic diet consistent carb diet DVT prophylaxis: Therapeutic Lovenox 12/08/2024 Continue amiodarone drip at this time. ? Continue digoxin ? Continue antibiotics ? Awaiting urine culture ? Awaiting blood cultures ? Patient is status post 4 L normal saline bolus. Continue therapeutic Lovenox twice daily ? Continue cefepime Continue management as per H&P at this time. Check speech therapy evaluation today. 12/09/2024 Continue amiodarone drip. Patient remains in A-fib and tachycardic., Continue digoxin ? Consult cardiology for possible KARLY cardioversion since this is new onset A- fib ? Echo shows EF of 45% which is new. 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 Discussed with cardiology in detail. Will await recommendations. ? Urine culture positive for gram-negative rods. Final sensitivities are pending at this time ? Blood cultures are pending and negative to date. ? Continue cefepime 2 g every 12 hours. ? Patient passed speech therapy evaluation diet has been started. ? Continue therapeutic Lovenox. -Patient's wound care notes have been reviewed from 12/06/2024 12/10/2024 Continue amiodarone drip at this time. Will switch to 400 mg twice daily and switch of the drip. Stop digoxin. ? Patient undergoing KARLY cardioversion today. He is converted to sinus rhythm at this time. Discussed with cardiology. ? Echo did show EF of 45% which may be rate related cardiomyopathy. ? Urine culture positive for gram-negative rods. E. coli sensitive to beta- lactam's and nitrofurantoin. He should be going home on this for another 7 days. ? Therapeutic Lovenox will be stopped and he will be transition to Eliquis. ? Patient is hypoxic requiring oxygen secondary to anesthesia effect this morning and weaker diaphragm secondary to cervical injury 20 years ago. He is paraplegic below T4 level. ? Will continue to wean off oxygen as able. May consider Lasix going forward if blood pressure permits. ? Continue to monitor respiratory status. -Updated patient's significant other at bedside and updated patient in detail. Attestations 2 Medical Necessity Statement*: Patient is status post KARLY cardioversion. However secondary respiratory status may need continued hospitalization today. 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
[2024-12-10] MEDS: atorvastatin 40 mg Tablet PO (16:31)
[2024-12-10] MEDS: baclofen 10 mg Tablet 80 MG PO (16:32)
[2024-12-10 17:21] LABS: Glucose Point of Care 198 mg/dL (70-110)
[2024-12-10] MEDS: apixaban 5 mg Tablet PO (22:09)
[2024-12-10] MEDS: baclofen 10 mg Tablet 60 MG PO (22:09)
[2024-12-10] MEDS: metoprolol tartrate 25 mg Tablet PO (22:10)
[2024-12-10 23:50] LABS: Glucose Point of Care 258 mg/dL (70-110)
[2024-12-11] VITALS (99 sets, daily range): BP systolic 76–142; BP diastolic 58–96; PULSE 71–103; RESP 13–28; TEMP 36.1–36.8; O2SAT 79–99
[2024-12-11] MEDS: HYDROcodone-acetaminophen 5-325 mg Tablet 1 TAB PO (01:08)
--- NOTE | 2024-12-11 01:25 | XRR_ITS ---
PROCEDURE INFORMATION: Exam: XR Chest Exam date and time: 12/11/2024 1:27 AM Age: 54 years old Clinical indication: Shortness of breath; Worsening SOB and hypoxia. Zoll pad in place. TECHNIQUE: Imaging protocol: Radiologic exam of the chest. Views: 1 view. COMPARISON: CR (CHEST, ) 12/07/2024 5:06 PM FINDINGS: Lungs: There may be mild central vascular congestion. No focal consolidation is appreciated. Please note that a portion of the left lung base is obscured secondary to overlying electrical device. Pleural spaces: Unremarkable. No pleural effusion. No pneumothorax. Heart/Mediastinum: The heart is enlarged. Bones/joints: There are postoperative changes involving the cervical spine. XR/XR chest 1V portable [id number] IMPRESSION: 1. Cardiomegaly. 2. Possible minimal vascular congestion centrally.
[2024-12-11 02:02] LABS: Basophils # 0.1 10^3/uL (0.0-0.1); Basophils % 1.1 %; Eosinophils # 0.2 10^3/uL (0.0-0.8); Hematocrit 43.8 % (37-53); Lymphocytes # 1.6 10^3/uL (0.8-4.8); Lymphocytes % 16.8 %; Mean Corpuscular HGB Conc 27.4 g/dL (30-55); Mean Corpuscular Hemoglobin 20.8 pg (27-33); Mean Corpuscular Volume 75.8 fl (82-101); Mean Platelet Volume 9.8 fL (7.4-10.4); Monocytes % 10.4 %; Neutrophils # 6.41 10^3/uL (1.8-7.7); Neutrophils % 69.1 %; Nucleated Red Blood Cells % 0.2 %; Platelet Count 298 10^3/cmm (157-399); Red Blood Count 5.78 10^6/uL (3.85-5.65); White Blood Count 9.29 10^3/uL (3.29-11.43)
[2024-12-11 02:12] LABS: Anion Gap 16.1 (5-19); Blood Urea Nitrogen 19 mg/dL (6-20); Calcium 7.7 mg/dL (8.5-10.5); Carbon Dioxide 24 mmol/L (22-29); Chloride 102 mmol/L (98-107); Creatinine Clr Calc Pharmacy 170.0897; Glomerular Filtration Rate 139.9 mL/min (90-130); Glucose 231 mg/dL (65-115); Magnesium 1.7 mg/dL (1.7-2.3); Osmolality Calculated 296 mOsm/kg (285-295); Potassium 4.1 mmol/L (3.5-5.1); Sodium 138 mmol/L (136-145)
[2024-12-11] MEDS: levalbuterol 0.63 mg/3 mL Neb INHALATION ×5 (02:14→21:22)
[2024-12-11] MEDS: sodium chloride 0.9% 500 ML 999 ML IV ×2 (02:20→04:09)
[2024-12-11 04:26] LABS: Glucose Point of Care 231 mg/dL (70-110)
--- NOTE | 2024-12-11 04:30 | PC.NURSE ---
Crackles in Lungs: Dr. Rubalcava called @3807 to notify of current vitals and crackles in bilateral lungs. No new orders at this time.
--- NOTE | 2024-12-11 04:51 | PC.NURSE ---
Arrival to ICU: Pt arrived to ICU 7 @0359, continuous cardiac monitoring initiated.
[2024-12-11] MEDS: clopidogrel 75 mg Tablet PO (05:32)
[2024-12-11] MEDS: baclofen 10 mg Tablet 40 MG PO (05:32)
--- NOTE | 2024-12-11 06:05 | PC.NURSE ---
Patient transferred to ICU. Report given Abida BROOKE. Patient family was notified of transfer.
[2024-12-11 07:10] LABS: Glucose Point of Care 251 mg/dL (70-110)
[2024-12-11] MEDS: FUROsemide 10 mg/mL SDV 4mL 40 MG IVP ×2 (07:11→12:56)
[2024-12-11] MEDS: ipratropium 0.5 mg/2.5 mL Neb INHALATION ×4 (07:48→21:22)
[2024-12-11] MEDS: budesonide 0.5 mg/2 mL Neb INHALATION ×2 (07:48→21:22)
[2024-12-11] MEDS: acetylcysteine 200 mg/mL MDV 10 mL 100 MG INHALATION ×2 (07:54→21:22)
--- NOTE | 2024-12-11 08:27 | P.PN_ITS ---
Subjective 2 Subjective: Patient was transferred to ICU last night. He was hypotensive and was symptomatic with it. Also developed volume overload. Vitals/I&O/Wt Last Vital Signs Temp 97.8 F 12/10/24 23:49 Pulse 73 12/11/24 08:00 Resp 16 12/11/24 07:40 BP 104/75 12/11/24 06:30 Pulse Ox 98 12/11/24 07:40 O2 Del Method Nasal Cannula 12/11/24 07:40 O2 Flow Rate 4 12/11/24 07:40 FiO2 4 12/11/24 06:30 12/10/24 12/11/24 12/11/24 22:59 06:59 14:59 Intake Total 1000 / 1221.363 Output Total 1650 / 1650 Balance -650 / -428.637 Weight last 48 hrs Weight 231 lb 14.4 oz Weight 227 lb 7 oz Physical Exam 2 Narrative: GENERAL: Patient is alert, awake and oriented x3. [] NECK: No jugular vein distension. [] HEENT: No cyanosis. No icterus. No pallor. [] HEART: Regular S1 and S2. No murmur, rub or gallop. [] LUNGS: Decreased air entry bilaterally CENTRAL NERVOUS SYSTEM: Grossly nonfocal. [] EXTREMITIES: Lower extremities with 1+ edema bilaterally. Data 12/12/24 05:44 12/12/24 05:44 A&P Assessment and plan (1) Atrial fibrillation with rapid ventricular response: (2) New onset of congestive heart failure: (3) Hypertension: Qualifiers: Hypertension type: primary hypertension Qualified Code(s): I10 - Essential (primary) hypertension Plan The patient's recent decrease in LV systolic function and CAD history, we will proceed with coronary angiogram with possible PCI. Risks and benefits of procedure were discussed. N.p.o. past midnight. Will switch Eliquis to Lovenox. Staying in normal sinus rhythm since cardioversion Thank you for involving us with care of this patient. We will continue to follow. Please call with questions. Attestations 2 Medical Necessity Statement*: Care expected to cross 2 midnights. Coding Level of Care Code Acute Code for [facility] Diagnoses Atrial fibrillation with rapid ventricular response I48.91 New onset of congestive heart failure I50.9 Primary hypertension I10 Hypertension type: primary hypertension
[2024-12-11] MEDS: insulin lispro 100 unit/1 mL SUBCUT ×3 (08:37→17:44)
[2024-12-11] MEDS: gabapentin 300 mg Capsule 600 MG PO ×3 (08:39→22:09)
[2024-12-11] MEDS: apixaban 5 mg Tablet PO (08:40)
[2024-12-11] MEDS: buPROPion SR (12 HR) 150 mg Tablet PO ×2 (08:40→17:43)
[2024-12-11] MEDS: amiodarone 200 mg Tablet 400 MG PO ×2 (08:40→17:43)
[2024-12-11 11:32] LABS: Glucose Point of Care 218 mg/dL (70-110)
--- NOTE | 2024-12-11 12:35 | PM.PN ---
Subjective Subjective: Seen this morning. Overnight patient became hypotensive and was almost somnolent and had to be transferred to ICU. Levophed was ordered. However did not have to be given since blood pressure did stabilize. Patient complained of shortness of breath. He is requiring 2 L nasal cannula at this time. EF is 45%. Patient was given Lasix 40 IV around 7 AM. He has had 1 L urine output since then. He is already starting to feel better. Vitals/I&O/Wt Last Vital Signs Temp 97.9 F 12/11/24 12:00 Pulse 72 12/11/24 12:00 Resp 13 12/11/24 12:00 BP 109/87 12/11/24 12:00 Pulse Ox 98 12/11/24 12:00 O2 Del Method Nasal Cannula 12/11/24 12:00 O2 Flow Rate 4 12/11/24 12:00 FiO2 4 12/11/24 06:30 12/10/24 12/11/24 12/11/24 22:59 06:59 14:59 Intake Total 1000 / 1221.363 125 / 125 Output Total 1650 / 1650 1350 / 1350 Balance -650 / -428.637 -1225 / -1225 Weight last 48 hrs Weight 105.188 kg Weight 103.164 kg Physical Exam Narrative: Patient is awake and alert No active chest pain Patient on 2 L nasal cannula. Abdomen distended nontender, soft Cap refill more than 3 seconds Variable S1-S2 Awake and alert Nonfocal neuroexam Able to move upper extremities Patient is AOx4 Laying in bed appearing comfortable at this time. Regular rate rhythm, sinus rhythm. Patient in supine position. Lungs are clear to auscultation at this time. I do not appreciate any crackles. 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: Qualifiers: Encounter type: initial encounter Qualified Code(s): S98.222A - Partial traumatic amputation of two or more left lesser toes, initial encounter (7) Sacral wound: (8) Wheelchair dependent: (9) New onset of congestive heart failure: (10) Sepsis: (11) Recurrent UTI: (12) Pressure ulcer of coccygeal region: (13) Pressure ulcer of right buttock, stage 4: (14) Pressure ulcers of skin of multiple topographic sites: Plan Sepsis related to Cauti Patient also has multiple pressure ulcers, history of chronic osteomyelitis recently finished IV antibiotic course 3 weeks ago As per the , wound care clinic has not commended any debridement Replace Olivas catheter Continue cefepime for E. coli urine culture history Patient has received septic bolus I would not continue IV fluids he does have high BNP, mild sign of fluid overload New onset CHF Low-dose Lasix considering na?ve Requested echo Tachyarrhythmia related CHF no active chest pain, no significant elevation of troponin, I did not appreciate any ST elevation that was read by machine, his EKG consistent with intermittent A-fib A-fib RVR Started amiodarone drip, given loading dose of digoxin Check magnesium, keep magnesium of 2, potassium of 4, check D-dimer to rule out thromboembolic disease CHADVASC: 5 Start therapeutic Lovenox will need Eliquis at discharge Chest x-ray unremarkable, discontinue doxycycline that he was taking at home, patient is not requiring oxygen Full code Diabetic diet consistent carb diet DVT prophylaxis: Therapeutic Lovenox 12/08/2024 Continue amiodarone drip at this time. ? Continue digoxin ? Continue antibiotics ? Awaiting urine culture ? Awaiting blood cultures ? Patient is status post 4 L normal saline bolus. Continue therapeutic Lovenox twice daily ? Continue cefepime Continue management as per H&P at this time. Check speech therapy evaluation today. 12/09/2024 Continue amiodarone drip. Patient remains in A-fib and tachycardic., Continue digoxin ? Consult cardiology for possible KARLY cardioversion since this is new onset A-fib ? Echo shows EF of 45% which is new. 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 Discussed with cardiology in detail. Will await recommendations. ? Urine culture positive for gram-negative rods. Final sensitivities are pending at this time ? Blood cultures are pending and negative to date. ? Continue cefepime 2 g every 12 hours. ? Patient passed speech therapy evaluation diet has been started. ? Continue therapeutic Lovenox. -Patient's wound care notes have been reviewed from 12/06/2024 12/10/2024 Continue amiodarone drip at this time. Will switch to 400 mg twice daily and switch of the drip. Stop digoxin. ? Patient undergoing KARLY cardioversion today. He is converted to sinus rhythm at this time. Discussed with cardiology. ? Echo did show EF of 45% which may be rate related cardiomyopathy. ? Urine culture positive for gram-negative rods. E. coli sensitive to beta-lactam's and nitrofurantoin. He should be going home on this for another 7 days. ? Therapeutic Lovenox will be stopped and he will be transition to Eliquis. ? Patient is hypoxic requiring oxygen secondary to anesthesia effect this morning and weaker diaphragm secondary to cervical injury 20 years ago. He is paraplegic below T4 level. ? Will continue to wean off oxygen as able. May consider Lasix going forward if blood pressure permits. ? Continue to monitor respiratory status. -Updated patient's significant other at bedside and updated patient in detail. 12/11/2024 Continue amiodarone orally 400 mg twice daily x 7 days total. ? Patient underwent successful KARLY and cardioversion yesterday. He has remained in sinus rhythm since then. EF 45% which was thought to be rate related cardiomyopathy however this is a new finding for the patient. Cardiology plans to do a cardiac cath in AM. In the meantime we will be diuresing patient. Placed on Lasix 40 IV daily. Patient was transition to Eliquis yesterday since there was plan to discharge today however secondary to event overnight there is tentative plan for coronary angiogram we will stop Eliquis and place him back on therapeutic Lovenox. Continue to monitor respiratory status. Will use Levophed if needed for hypotension however we will continue Lasix 40 IV daily. Patient on any oxygen at home. Discussed with cardiology at length and nursing staff this morning. N.p.o. at midnight for angiogram in a.m. Urine culture reviewed. Will switch to ceftriaxone 1 g daily to complete total 7-day course. Attestations Medical Necessity Statement*: Needs IV diuresis and plan for coronary angiogram in a.m. Requires further hospitalization secondary to persistent supplemental oxygen dependency which is new for the patient. He also has a newly reduced EF of 45%. 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
[2024-12-11] MEDS: cefTRIAXone 1,000 mg SDV 1000 MG IVP (12:56)
[2024-12-11] MEDS: atorvastatin 40 mg Tablet PO (16:51)
[2024-12-11] MEDS: baclofen 10 mg Tablet 80 MG PO (16:51)
[2024-12-11 17:30] LABS: Glucose Point of Care 186 mg/dL (70-110)
--- NOTE | 2024-12-11 19:07 | PC.NURSE ---
Dressings changed to right hip, sacrum, and right buttock changed per .
[2024-12-11] MEDS: baclofen 10 mg Tablet 60 MG PO (22:09)
[2024-12-11] MEDS: enoxaparin 100 mg/mL Syringe SUBCUT (22:10)
[2024-12-12] VITALS (54 sets, daily range): BP systolic 89–140; BP diastolic 48–100; PULSE 63–102; RESP 11–27; TEMP 36.2–37; O2SAT 75–100
[2024-12-12 00:41] LABS: Glucose Point of Care 153 mg/dL (70-110)
[2024-12-12 06:07] LABS: Basophils # 0.1 10^3/uL (0.0-0.1); Basophils % 0.8 %; Eosinophils # 0.2 10^3/uL (0.0-0.8); Eosinophils % 2.4 %; Hematocrit 43.3 % (37-53); Lymphocytes # 1.8 10^3/uL (0.8-4.8); Lymphocytes % 21.2 %; Mean Corpuscular HGB Conc 28.2 g/dL (30-55); Mean Corpuscular Hemoglobin 20.6 pg (27-33); Mean Platelet Volume 9.4 fL (7.4-10.4); Monocytes # 0.9 10^3/uL (0.2-0.9); Monocytes % 10.6 %; Neutrophils # 5.51 10^3/uL (1.8-7.7); Neutrophils % 64.6 %; Nucleated Red Blood Cells % 0 %; Platelet Count 271 10^3/cmm (157-399); Red Blood Count 5.93 10^6/uL (3.85-5.65); White Blood Count 8.51 10^3/uL (3.29-11.43)
[2024-12-12 06:30] LABS: Alanine Aminotransferase 138 U/L (0-41); Albumin Level 3.4 g/dL (3.5-5.2); Alkaline Phosphatase 119 U/L (40-130); Anion Gap 16.5 (5-19); Aspartate Amino Transferase 72 U/L (0-40); Blood Urea Nitrogen 18 mg/dL (6-20); Calcium 8.6 mg/dL (8.5-10.5); Carbon Dioxide 26 mmol/L (22-29); Chloride 100 mmol/L (98-107); Glomerular Filtration Rate 223.3 mL/min (90-130); Glucose 170 mg/dL (65-115); Magnesium 1.9 mg/dL (1.7-2.3); Osmolality Calculated 294 mOsm/kg (285-295); Potassium 3.5 mmol/L (3.5-5.1); Sodium 139 mmol/L (136-145); Total Bilirubin 0.3 mg/dL (0.15-1.2); Total Protein 6.4 g/dL (6.6-8.7)
[2024-12-12] MEDS: clopidogrel 75 mg Tablet PO (06:31)
[2024-12-12] MEDS: baclofen 10 mg Tablet 40 MG PO (06:31)
--- NOTE | 2024-12-12 06:40 | XACV_ITS ---
Exam Room: 2 Ht: 180 cm Wt: 105 kg BSA: 2.32 m2 Gender: Male : 1970 Any Known Allergies: Other Exam Priority: Routine Procedure(s): Procedure Description: Diagnostic procedure Procedure Description: Left Heart Catheterization Procedure Description: Coronary Angiography Diagnostic Cath Status: Elective Diagnostic Findings * No disease noted in the Left Main, Left Anterior Descending, Right, or Circumflex coronary arteries. Patent prior RCA stent. * Elevated LVEDP. * Coronary angiography shows right dominance. Conclusions 1. No disease noted in the Left Main, Left Anterior Descending, Right, or Circumflex coronary arteries. Patent prior RCA stent. Recommendations * LVEDP is very high. Continue IV diuresis. * Outpatient cardiology follow up. Interventional RX Recommendation: medical therapy and/or counseling Diagnostic RX Recommendation: medical therapy and/or counseling Anticoagulation: Heparin Pressures Phase:Rest AO : 154 / 110 ( 133 ) @ 8:28:00 AM 201 / 100 ( 138 ) @ 8:31:00 AM 200 / 100 ( 138 ) @ 8:31:00 AM LV : 205 / -1 / 44 @ 8:31:00 AM 205 / -2 / 47 @ 8:31:00 AM Valves Phase:DefaultPhase AV : 4.0 @ 8:40:50 AM AV Mean Gradient: 13.0 @ 8:40:50 AM 13.0 @ 8:40:50 AM Clinical Evaluation EBL: 5mL-10mL Procedural Details Procedure Consent Obtained. Current Diagnosis : Chest Pain. Pre-Procedure Time Out. Identified patient by full name and date of as verbalized by the patient/guarantor. Does the consent match the physician's order: Yes. Accurate & Complete Informed Consent: Yes. Inpatient/Outpatient History & Physical on Chart: Yes. If H&P is completed, is and addenduem needed: No; If yes, is the addendum complete: N/A. Visualize and Verify Site with Patient/Guarantor: N/A. Relevant Radiology Images available: Yes. Pre-op teaching completed and patient verbalized understanding. The risks, benefits, and alternatives of sedation and/or procedure were discussed by physician. The patient agrees to continue. Procedure started. [facility] Clinical Fraility Score: 6: Moderately Frail. 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 Chest Pain Symptom Assessment: Non-anginal Chest Pain. Correct patient, site and procedure confirmed by cath team. PERRLA. Strong, equal hand pizza chef bilaterally. Lungs clear x 5 lobes. IV Site on Arrival: 18 gauge in the left hand. IV Fluids: 0.9% NaCl at KVO. 0 mL infused prior to lab instructor. Oxygen started at 2liters/min via nasal canula. right groin was prepped with chloroprep then draped in the usual sterile fashion. right radial was prepped with chloroprep then draped in the usual sterile fashion. Baseline sample Acquired. HR: 0 BPM. Physician arrived. Physician scrubbed in. Immediate Pre-Procedure Time Out. Correct Patient: Yes; Correct Procedure: Yes; Correct Site: Yes; Correct Patient Position: Yes; Correct Supplies: Yes; Dried Flammable Prep: Yes; Blood Products Available: Yes;. Lidocaine 1% infiltrated to the right groin. Arterial access obtained with micropuncture set. A 5 jamaican JL4 catheter in over wire. Catheter removed over the standard wire. A 5 jamaican JR4 catheter in over wire. Multiple views taken of left coronary artery. Multiple views taken of right coronary artery. EDP Sample taken: LV 205/-2,44; HR: 84 BPM; SpO2: 93%. Pullback taken: LV 205/-3,47; AO 201/100(138); Mean: 13mmHg, Peak to Peak: 4mmHg, SEP: 18sec/min; HR: 79 BPM; SpO2: 84%. Catheter removed over the standard wire. A Right femoral angiogram was performed to determine safe placement of closure device. A Mynx was successful obtaining hemostatsis at the Right Femoral artery insertion site. Vital chart was stopped. Post Procedure: Pulses reassessed and unchanged. PERRLA. Strong, equal hand pizza chef bilaterally. No VTE prophylaxis required. Medication's Wasted: Lidocaine 1% = 10 mL. Medication's Wasted: Heparin = 1000 units. Medication's Wasted: Other = Fentanyl 75mcg Versed 1 mg. Total IV fluids: 20 mL. Post-op diagnosis: Non-obstructive CAD. Complications: None. Estimated blood loss: 5mL-10mL. Responsiveness - Normal response to verbal stimuli; alert and oriented, PERRLA. Airway - Unaffected, no intervention required; spontaneous ventilation. Circulation: W/N/L, pulses unchanged. Nausea/Vomiting: No. Procedure completed. Patient transferred by bed to ICU. Access Site Site: Right Femoral artery Sheath Size: 6 Fr Hemostasis Method: Mynx Hemostasis Success: Successful Procedure Medications Start: 8:15 AM Stop: 8:15 AM Medication: Benadryl Amount: 25 mg Route: I.V. Start: 8:16 AM Stop: 8:16 AM Medication: Versed 1 mg and Fentanyl 25 mcg Amount: 1 Route: I.V. Start: 8:32 AM Stop: 8:32 AM Medication: Hydralazine Amount: 10 mg I, the attending physician, have reviewed and verified all procedure medications. Yes, all medications given per verbal order History/Risk Factors Hypertension: Yes Dyslipidemia: Yes Peripheral Arterial Disease (PAD): No Myocardial Infarction (OR): Yes Obesity: Yes Tobacco Use: Former Prior Interventions PCI: Yes Valve Surgery: No Date of PCI: 04/05/2017 Report Signatures Finalized by Anderson Bower MD on 12/12/2024 08:43 AM
[2024-12-12] MEDS: levalbuterol 0.63 mg/3 mL Neb INHALATION ×4 (07:31→20:21)
[2024-12-12] MEDS: ipratropium 0.5 mg/2.5 mL Neb INHALATION ×4 (07:31→20:21)
[2024-12-12] MEDS: budesonide 0.5 mg/2 mL Neb INHALATION ×2 (07:31→20:21)
[2024-12-12 07:54] LABS: Glucose Point of Care 196 mg/dL (70-110)
--- NOTE | 2024-12-12 08:00 | PC.NURSE ---
To [facility] via stretcher with manager [facility] RN at bedside.
--- NOTE | 2024-12-12 08:16 | W.PM.OPSUD ---
Surgery/Procedure H&P Update DATE OF PROCEDURE: December 12, 2024 DATE H&P PERFORMED: 12/09/24 PREOP DIAGNOSIS: LV dysfunction/ Pulmonary edema PRIMARY INDICATION FOR PROCEDURE: LV dysfunction/ Pulmonary edema PLANNED PROCEDURE: Left heart cath with possible percutaneous coronary intervention PATIENT REASSESSED PRIOR TO SEDATION, WITH NO CHANGE NOTED: Yes PHYSICAL EXAM: alert, oriented x 3, clear to auscultation bilaterally and regular rate & rhythm AIRWAY EVAL/ANESTHESIA PLAN: normal airway, ASA III, Local Anesthesia, Risks, benefits & alternatives of sedation and/or procedure discussed and Patient agrees to continue as planned ADDITIONAL INFORMATION: Moderate sedation
[2024-12-12 09:21] LABS: Estmated Average Glucose 229; Hemoglobin A1C 9.6 % (4.0-6.0)
[2024-12-12 09:24] LABS: Iron 32 ug/dL (59-158); Percent Saturation 8.5 % (20-50); Total Iron Binding Capacity 375 mcg/dl; Unsaturated Iron Binding 343 ug/dL (112-347)
[2024-12-12 09:38] LABS: Vitamin B12 1001 pg/mL (232-1245)
[2024-12-12] MEDS: enoxaparin 100 mg/mL Syringe SUBCUT (09:49)
[2024-12-12] MEDS: buPROPion SR (12 HR) 150 mg Tablet PO ×2 (09:49→18:01)
[2024-12-12] MEDS: amiodarone 200 mg Tablet 400 MG PO ×2 (09:49→18:01)
[2024-12-12] MEDS: gabapentin 300 mg Capsule 600 MG PO ×3 (09:49→20:50)
[2024-12-12] MEDS: pantoprazole 40 mg SDV IVP (09:50)
--- NOTE | 2024-12-12 10:49 | XRR_ITS ---
PROCEDURE INFORMATION: Exam: XR Chest Exam date and time: 12/12/2024 10:52 AM Age: 54 years old Clinical indication: Shortness of breath; Additional info: SOB TECHNIQUE: Imaging protocol: Radiologic exam of the chest. Views: 1 view. COMPARISON: CR (CHEST, ) 12/11/2024 1:27 AM FINDINGS: Tubes, catheters and devices: None. Lungs: Gkxi-yr-gajjudni bilateral perihilar and basilar interstitial lung opacities, suggesting pulmonary edema versus infiltrates. Linear density identified within bilateral lower lungs. The bilateral upper lungs appear clear. Pleural spaces: No pleural effusion. No pneumothorax. Heart/Mediastinum: Cardiac silhouette appears mildly enlarged. Bones/joints: Generalized bony degenerative changes. Diffusely decreased bone density. Old healed left rib fractures are demonstrated. XR/XR chest 1V portable [id number] IMPRESSION: 1. Mild enlarged cardiac silhouette. 2. Inql-bn-brpzeuos pulmonary edema versus infiltrates. 3. Linear bilateral lower chest pulmonary atelectasis, or scarring.
--- NOTE | 2024-12-12 10:54 | P.PN_ITS ---
Subjective 2 Subjective: Patient underwent left heart cath today and cath was negative. LV EDP was elevated. He is having a good response to the Lasix and out about 15 L over 24 hours. He does have some coarse crackles bilateral lower lobes on my exam. Right groin was closed with a Mynx device. Vitals/I&O/Wt Last Vital Signs Temp 97.1 F L 12/12/24 08:00 Pulse 72 12/12/24 10:00 Resp 14 12/12/24 10:00 BP 97/68 12/12/24 10:00 Pulse Ox 87 L 12/12/24 10:00 O2 Del Method Nasal Cannula 12/12/24 10:00 O2 Flow Rate 5 12/12/24 10:00 FiO2 4 12/11/24 06:30 12/11/24 12/12/24 12/12/24 22:59 06:59 14:59 Intake Total 375 / 625 Output Total 850 / 2200 Balance -475 / -1575 Weight last 48 hrs Weight 231 lb 14.4 oz Weight 231 lb 14.4 oz Physical Exam 2 Narrative: General: No apparent distress, healthy appearing, well nourished HENMT: normoceophalic Muskuloskeletal: Full ROM Lymphatic: no lymphedema noted Respiratory: Normal respiratory effort, bilateral lower lobes coarse crackles, no use of accessory muscles Cardio: No JVD, regular rate, regular rhythm, S1 S2 normal, no murmurs, peripheral pulses 2+ radial bilaterally and 2+ right femoral palpated GI: Normal to inspection, nondistended Extremities: Full ROM, normal, normal capillary refill, no cyanosis or edema Neuro: Alert and oriented x4, no focal motor deficits Psych: Affect normal, denies suicidal ideation, mental status grossly normal Skin: Small not at the right groin site but no evidence of hematoma or abnormal bleeding Data 12/12/24 05:44 12/12/24 05:44 A&P Assessment and plan (1) Atrial fibrillation with rapid ventricular response: (2) New onset of congestive heart failure: (3) Hypertension: Qualifiers: Hypertension type: primary hypertension Qualified Code(s): I10 - Essential (primary) hypertension Plan The plan for this gentleman is to continue Plavix will restart Eliquis this evening. Patient did get morning dose of Lovenox. Due to crackles and increased LV EDP, will start Lasix at 60 twice daily and titrate to patient's response. Will add potassium for replacement as well. Creatinine normal at this time. Will continue to monitor this. Attestations 2 Medical Necessity Statement*: Care expected to cross 2 midnights due to above defined care. Coding Level of Care Code Acute Code for Chg Fwd Diagnoses Atrial fibrillation with rapid ventricular response I48.91 New onset of congestive heart failure I50.9 Primary hypertension I10 Hypertension type: primary hypertension
[2024-12-12] MEDS: FUROsemide 10 mg/mL SDV 10mL 60 MG IVP ×2 (11:00→18:02)
[2024-12-12] MEDS: potassium chloride ER 20 mEq Tablet PO ×2 (11:00→18:01)
[2024-12-12 11:25] LABS: NT Pro B Type Natriuretic Pept 526 pg/mL (0-125)
[2024-12-12] MEDS: acetylcysteine 200 mg/mL MDV 10 mL 100 MG INHALATION ×2 (11:33→20:26)
[2024-12-12 11:45] LABS: Glucose Point of Care 184 mg/dL (70-110)
[2024-12-12] MEDS: vancomycin 2,000 MG/400 ML PIGGYBACK 200 MG IV (11:54)
[2024-12-12] MEDS: insulin lispro 100 unit/1 mL SUBCUT ×3 (11:55→20:56)
--- NOTE | 2024-12-12 12:59 | PHA.VACGOAL ---
Vancomycin Goal - Goal Vancomycin Goal:: 15-20 mg/L Vancomycin Indication:: Pneumonia - Therapy Current therapy:: Other Antibiotic (CEFTRIAXONE) Day of therpy:: Day [1]of [] . Actual body weight (kg): 105.188 kg - Data Labs: WBC 8.51 10^3/uL (3.29-11.43) 12/12/24 05:44 RBC 5.93 10^6/uL (3.85-5.65) H 12/12/24 05:44 Hgb 12.20 g/dL (11.27-16.99) 12/12/24 05:44 Hct 43.3 % (37-53) 12/12/24 05:44 MCV 73.0 fl (82-101) L 12/12/24 05:44 MCH 20.6 pg (27-33) L 12/12/24 05:44 MCHC 28.2 g/dL (30-55) L 12/12/24 05:44 RDW 21.0 % (12.1-15.1) H 12/12/24 05:44 Sodium 139 mmol/L (136-145) 12/12/24 05:44 Potassium 3.5 mmol/L (3.5-5.1) 12/12/24 05:44 Chloride 100 mmol/L (98-107) 12/12/24 05:44 Carbon Dioxide 26 mmol/L (22-29) 12/12/24 05:44 Anion Gap 16.5 (5-19) 12/12/24 05:44 BUN 18 mg/dL (6-20) 12/12/24 05:44 Creatinine 0.4 mg/dL (0.7-1.2) L 12/12/24 05:44 GFR Calculation 223.3 mL/min (90-130) H 12/12/24 05:44 Treatment plan:: new consult Regimen:: New start vancomycin for pneumonia. No history of vancomycin found. Received 2000 mg load dose. Started on maintenance dose of 1250 mg q8h based on population based pharmacokinetic nomogram.
[2024-12-12] MEDS: cefTRIAXone 1,000 mg SDV 1000 MG IVP (13:28)
--- NOTE | 2024-12-12 14:00 | PC.SOCIAL ---
IMM Updated Updated pt on IMM. No questions voiced. Provided pt a copy. Initialed, dated, & timed copy in chart.
--- NOTE | 2024-12-12 14:46 | P.PN_ITS ---
Subjective 2 Subjective: Hospital course, labs appreciated. Patient seen in clinic comfortably in bed postcardiac angiogram. Awake and alert. Denies any nausea vomiting, headache, difficulty in breathing. Currently on 4 L of oxygen supplementation saturating more than 90%. Blood pressure of 104 systolic. Remains in sinus rhythm. Vitals/I&O/Wt Last Vital Signs Temp 98.6 F 12/12/24 12:00 Pulse 91 12/12/24 14:00 Resp 14 12/12/24 14:00 BP 98/67 12/12/24 14:00 Pulse Ox 91 12/12/24 14:00 O2 Del Method Nasal Cannula 12/12/24 14:00 O2 Flow Rate 3 12/12/24 14:00 FiO2 4 12/11/24 06:30 12/11/24 12/12/24 12/12/24 22:59 06:59 14:59 Intake Total 375 / 625 600 / 600 Output Total 850 / 2200 2150 / 2150 Balance -475 / -1575 -1550 / -1550 Weight last 48 hrs Weight 105.188 kg Weight 105.188 kg Physical Exam 2 Narrative: General: No acute distress, AO x3 HEENT: PERRLA, pupils bilaterally equal and reactive Chest: Normal vesicular breath sounds, occasional rhonchi and crackles present in right lower zone, equal good air entry bilaterally CVS: S1-S2 regular, pansystolic murmur at apex radiating to anterior axillary line, no tachycardia, no gallops, no rubs Abdomen: Soft, nontender, no organomegaly, bowel sounds present Neuro: Bilateral lower limb paraplegia, no facial deformity, AO x3, Data 12/12/24 05:44 12/12/24 05:44 A&P Assessment and plan (1) Atrial fibrillation with rapid ventricular response: (2) New onset of congestive heart failure: (3) UTI (urinary tract infection): (4) Diabetes: Qualifiers: Diabetes mellitus complication detail: with other skin ulcer Diabetes mellitus complication status: with skin complications Diabetes mellitus retirement insulin use: without retirement use Diabetes mellitus type: type 2 Qualified Code(s): E11.622 - Type 2 diabetes mellitus with other skin ulcer (5) Retention of urine due to occlusion of Olivas catheter: (6) 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 Patient on baseline wheelchair-bound. Does have decubitus ulcer. Follows up with wound care as an outpatient. Continue dressing as per wound care recommendations. Qualifiers: Encounter type: initial encounter Qualified Code(s): S98.222A - Partial traumatic amputation of two or more left lesser toes, initial encounter (7) Sacral wound: (8) Wheelchair dependent: (9) Sepsis: (10) Pressure ulcer of coccygeal region: (11) Pressure ulcer of right buttock, stage 4: (12) Pressure ulcers of skin of multiple topographic sites: Plan Sepsis: On admission. In setting of possible UTI. Patient also has multiple pressure ulcers, history of chronic osteomyelitis recently finished IV antibiotic course 3 weeks ago Olivas replaced on admission. Urine culture growing E. coli. Appreciate sensitivity. Blood cultures negative. Continue with IV ceftriaxone. Will plan to finish a 5-day course. Adding Vancomycin. New onset CHF: Echocardiogram done shows an EF of 45% with grade 2 diastolic dysfunction, mild to moderate MR, trace AI. Underwent cardiac angiogram on 12/12. Concern for nonischemic cardiomyopathy. High LVEDP on cardiac angiogram. Lasix increased to 60 mg twice daily as per cardiology. Monitor renal functions. Fluid restriction to less than 1500 cc. Strict input output charting, daily weights. Depending on the blood pressure will try to add guideline directed medical therapy for congestive heart failure with beta-carrie and RENATE/ARB/ARNI. Goal blood pressure less than 140/90 mmHg with mean over 65. Will continue to monitor blood pressures. Currently slightly soft. A-fib RVR: Heart rate controlled. Back in normal sinus rhythm. Post cardioversion. Continue with amiodarone 400 mg twice daily. Will plan for 400 mg twice daily for next 7 days followed by 200 mg twice daily for 7 days followed by 200 mg daily. Holding off on beta-carrie given borderline blood pressures. Omega vas score: 5. Switch back to Eliquis 5 mg twice daily for stroke prevention. Hypoxia: Most likely in setting of combination of congestive heart failure. Cannot rule out pneumonia. 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 Check chest x-ray. Check proBNP. History of MRSA infection in the past. Add vancomycin to ceftriaxone. Patient is allergic to linezolid. Oxygen supplementation keeping saturation more than 90%. Ipratropium, Xopenex 4 times daily, Pulmicort twice daily. Incentive spirometry. Type 2 diabetes mellitus: A1c more than 9. Takes metformin and Ozempic as an outpatient. Discussed in detail with the patient regarding possible increase in dose of Ozempic as an outpatient. Patient will follow-up with PCP for further recommendations. Continue with sliding scale 3 times daily nightly for now. Depending on the insulin requirement in next 24 hours we will try to add Lantus. Full code Diabetic diet consistent carb diet DVT prophylaxis: Eliquis will be sufficient for DVT prophylaxis Protonix OPD prophylaxis Attestations 2 Medical Necessity Statement*: Requires further hospitalization for management of congestive heart failure in setting of nonischemic cardiomyopathy, A-fib with RVR post cardioversion, hypoxia in setting of CHF, pneumonia Diagnoses Atrial fibrillation with rapid ventricular response I48.91 New onset of congestive heart failure I50.9 UTI (urinary tract infection) N39.0 Type 2 diabetes mellitus with other skin ulcer, without long-term current use of insulin E11.622 Diabetes mellitus complication detail: with other skin ulcer Diabetes mellitus complication status: with skin complications 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
[2024-12-12] MEDS: atorvastatin 40 mg Tablet PO (16:08)
[2024-12-12] MEDS: baclofen 10 mg Tablet 80 MG PO (16:08)
[2024-12-12 17:43] LABS: Glucose Point of Care 174 mg/dL (70-110)
--- NOTE | 2024-12-12 19:32 | PC.NURSE ---
Patients expressed concern about patient not getting his home dose of amitriptyline and paroxetine. Notified Dr. Torres, order given that these could be restarted.
[2024-12-12 20:37] LABS: Glucose Point of Care 257 mg/dL (70-110)
[2024-12-12] MEDS: baclofen 10 mg Tablet 60 MG PO (20:49)
[2024-12-12] MEDS: amitriptyline 25 mg Tablet 10 MG PO (20:50)
[2024-12-12] MEDS: apixaban 5 mg Tablet PO (20:51)
[2024-12-12] MEDS: vancomycin 1,250 MG/250 ML PIGGYBACK 166.67 MG IV (23:28)
[2024-12-13] VITALS (15 sets, daily range): BP systolic 102–128; BP diastolic 64–81; PULSE 71–84; RESP 15–24; TEMP 36.4–36.7; O2SAT 90–99; BMI 32.0
[2024-12-13 05:33] LABS: Basophils # 0.1 10^3/uL (0.0-0.1); Eosinophils # 0.2 10^3/uL (0.0-0.8); Eosinophils % 1.7 %; Hematocrit 42.8 % (37-53); Lymphocytes # 1.8 10^3/uL (0.8-4.8); Lymphocytes % 18.1 %; Mean Corpuscular HGB Conc 28.5 g/dL (30-55); Mean Corpuscular Volume 73.5 fl (82-101); Mean Platelet Volume 9.5 fL (7.4-10.4); Monocytes # 1.3 10^3/uL (0.2-0.9); Monocytes % 13.5 %; Neutrophils % 65.1 %; Nucleated Red Blood Cells % 0 %; Platelet Count 284 10^3/cmm (157-399); Red Blood Count 5.82 10^6/uL (3.85-5.65); Red Cell Distribution Width 21.3 % (12.1-15.1); White Blood Count 9.84 10^3/uL (3.29-11.43)
[2024-12-13 06:00] LABS: Chol HDL Ratio 3.48 mg/dL (1.0-5.00); Cholesterol 108 mg/dL (0-200); HDL Cholesterol 31 mg/dL (60-100); LDL Cholesterol Calculated 49 mg/dL (50-129); Magnesium 1.8 mg/dL (1.7-2.3); Triglycerides 142 mg/dL (0-150); VLDL Cholestrol Calculation 28 mg/dL (0-30)
[2024-12-13 06:03] LABS: Alanine Aminotransferase 124 U/L (0-41); Albumin Level 3.6 g/dL (3.5-5.2); Alkaline Phosphatase 120 U/L (40-130); Anion Gap 15.3 (5-19); Aspartate Amino Transferase 51 U/L (0-40); Blood Urea Nitrogen 18 mg/dL (6-20); Calcium 8.8 mg/dL (8.5-10.5); Carbon Dioxide 26 mmol/L (22-29); Chloride 101 mmol/L (98-107); Creatinine Clr Calc Pharmacy 206.0192; Glomerular Filtration Rate 172.6 mL/min (90-130); Glucose 153 mg/dL (65-115); Osmolality Calculated 293 mOsm/kg (285-295); Potassium 3.3 mmol/L (3.5-5.1); Sodium 139 mmol/L (136-145); Total Bilirubin 0.3 mg/dL (0.15-1.2); Total Protein 6.6 g/dL (6.6-8.7)
[2024-12-13] MEDS: clopidogrel 75 mg Tablet PO (06:05)
[2024-12-13] MEDS: baclofen 10 mg Tablet 40 MG PO (06:05)
[2024-12-13 06:20] LABS: Glucose Point of Care 195 mg/dL (70-110)
[2024-12-13 06:21] LABS: Folate Level 16.3 ng/mL (4.5-32.2)
[2024-12-13] MEDS: ipratropium 0.5 mg/2.5 mL Neb INHALATION ×4 (08:11→19:52)
[2024-12-13] MEDS: budesonide 0.5 mg/2 mL Neb INHALATION ×2 (08:11→19:52)
[2024-12-13] MEDS: levalbuterol 0.63 mg/3 mL Neb INHALATION ×4 (08:11→19:53)
[2024-12-13] MEDS: gabapentin 300 mg Capsule 600 MG PO ×3 (08:54→20:27)
[2024-12-13] MEDS: pantoprazole 40 mg SDV IVP (08:54)
[2024-12-13] MEDS: FUROsemide 10 mg/mL SDV 10mL 60 MG IVP (08:54)
[2024-12-13] MEDS: potassium chloride ER 20 mEq Tablet PO (08:55)
[2024-12-13] MEDS: apixaban 5 mg Tablet PO ×2 (08:55→20:27)
[2024-12-13] MEDS: PARoxetine 20 mg Tablet PO (08:55)
[2024-12-13] MEDS: amitriptyline 25 mg Tablet 10 MG PO ×2 (08:55→18:23)
[2024-12-13] MEDS: amiodarone 200 mg Tablet 400 MG PO ×2 (08:55→18:24)
[2024-12-13] MEDS: buPROPion SR (12 HR) 150 mg Tablet PO ×2 (08:55→18:23)
[2024-12-13] MEDS: sennosides-docusate Tablet 1 TAB PO (08:55)
[2024-12-13] MEDS: vancomycin 1,250 MG/250 ML PIGGYBACK 166 MG IV ×3 (08:56→23:25)
[2024-12-13] MEDS: insulin lispro 100 unit/1 mL SUBCUT ×4 (08:56→21:24)
[2024-12-13 11:55] LABS: Glucose Point of Care 229 mg/dL (70-110)
[2024-12-13] MEDS: cefTRIAXone 1,000 mg SDV 1000 MG IVP (13:27)
[2024-12-13] MEDS: baclofen 10 mg Tablet 80 MG PO (15:08)
[2024-12-13] MEDS: atorvastatin 40 mg Tablet PO (15:08)
--- NOTE | 2024-12-13 15:41 | P.PN_ITS ---
<Statement entered by Corine Oconnell MD - 12/13/24 21:21> Patient was evaluated and cared for in conjunction with an advanced practice practitioner. I personally examined the patient and reviewed the chart and all pertinent data including imaging, telemetry, and laboratory results. I discussed the patient in detail with the advanced practice practitioner. Please see their note for complete H&P testing result and agreed upon plan of care for the patient. Subjective 2 Subjective: Patient is doing well overall today. Denies chest pain. His lungs still sound coarse in bilateral lower lobes. X-ray yesterday showed mild to moderate pulmonary edema. He has responded well to Lasix. He has been -312 5 L over 24 hours. Current O2 saturation 96% on 2 L nasal cannula Vitals/I&O/Wt Last Vital Signs Temp 97.7 F 12/13/24 12:00 Pulse 83 12/13/24 12:00 Resp 18 12/13/24 12:00 BP 128/81 12/13/24 12:00 Pulse Ox 96 12/13/24 12:00 O2 Del Method Nasal Cannula 12/13/24 12:00 O2 Flow Rate 2 12/13/24 12:00 FiO2 4 12/11/24 06:30 12/13/24 12/13/24 12/13/24 06:59 14:59 22:59 Intake Total 250 / 850 490 / 490 Output Total 1550 / 3975 2500 / 2500 Balance -1300 / -3125 -2009 / Weight last 48 hrs Weight 229 lb 9.6 oz Weight 231 lb 14.4 oz Physical Exam 2 Narrative: General: No apparent distress, healthy appearing, well nourished HENMT: normoceophalic Muskuloskeletal: Full ROM Lymphatic: no lymphedema noted Respiratory: Normal respiratory effort, bilateral lower lobes coarse crackles, no use of accessory muscles Cardio: No JVD, regular rate, regular rhythm, S1 S2 normal, no murmurs, peripheral pulses 2+ radial bilaterally GI: Normal to inspection, nondistended Extremities: Full ROM, normal, normal capillary refill, no cyanosis or edema Neuro: Alert and oriented x4, no focal motor deficits Psych: Affect normal, denies suicidal ideation, mental status grossly normal Skin: No abnormalities Data 12/13/24 02:25 12/13/24 02:25 Micro: Microbiology 12/07/24 19:40 Blood Culture - Final Blood NO GROWTH AFTER 5 DAYS 12/07/24 19:35 Blood Culture - Final Blood NO GROWTH AFTER 5 DAYS A&P Assessment and plan (1) Atrial fibrillation with rapid ventricular response: (2) New onset of congestive heart failure: (3) Hypertension: Qualifiers: Hypertension type: primary hypertension Qualified Code(s): I10 - Essential (primary) hypertension Plan Recommend continue Plavix and Eliquis. Due to crackles and increased LVEDP, will continue Lasix at 60 twice daily and titrate to patient's response. Will increase potassium to 30 meq BID, as patient's potassium is slightly low. Creatinine normal at this time. Will continue to monitor this. Continue metoprolol 25 mg BID, continue amio 400 BID. BP has been soft. Will consider adding Entresto in the future if BP allows. Recommend adding SLGT 2 inhibitor such as Jardiance or Farxiga on outpatient basis. PDMP PDMP Reviewed: Not Reviewed Attestations 2 Medical Necessity Statement*: Care expected to cross 2 midnights due to above defined care. Coding Level of Care Code Acute Code for g Fwd Diagnoses Atrial fibrillation with rapid ventricular response I48.91 New onset of congestive heart failure I50.9 Primary hypertension I10 Hypertension type: primary hypertension
[2024-12-13 17:07] LABS: Glucose Point of Care 201 mg/dL (70-110)
--- NOTE | 2024-12-13 18:01 | PM.PN ---
Subjective Subjective: No acute vents overnight. Today morning patient seen laying comfortably in bed with head of the bed elevated at 5 degrees saturating well on 1 L. Denies any nausea, vomiting, headache. Vitals/I&O/Wt Last Vital Signs Temp 97.8 F 12/13/24 16:00 Pulse 74 12/13/24 16:03 Resp 18 12/13/24 16:03 BP 109/70 12/13/24 16:00 Pulse Ox 92 12/13/24 16:03 O2 Del Method Nasal Cannula 12/13/24 16:03 O2 Flow Rate 1 12/13/24 16:03 FiO2 4 12/11/24 06:30 12/13/24 12/13/24 12/13/24 06:59 14:59 22:59 Intake Total 250 / 850 490 / 490 Output Total 1550 / 3975 2500 / 2500 Balance -1300 / -3125 -2009 Weight last 48 hrs Weight 104.145 kg Weight 105.188 kg Physical Exam Narrative: General: No acute distress, AO x3 HEENT: PERRLA, pupils bilaterally equal and reactive Chest: Normal vesicular breath sounds, occasional rhonchi and crackles present in right lower zone, equal good air entry bilaterally CVS: S1-S2 regular, pansystolic murmur at apex radiating to anterior axillary line, no tachycardia, no gallops, no rubs Abdomen: Soft, nontender, no organomegaly, bowel sounds present Neuro: Bilateral lower limb paraplegia, no facial deformity, AO x3, Data 12/13/24 02:25 12/13/24 02:25 Micro: Microbiology 12/07/24 19:40 Blood Culture - Final Blood NO GROWTH AFTER 5 DAYS 12/07/24 19:35 Blood Culture - Final Blood NO GROWTH AFTER 5 DAYS A&P Assessment and plan (1) Atrial fibrillation with rapid ventricular response: (2) New onset of congestive heart failure: (3) UTI (urinary tract infection): (4) Diabetes: Qualifiers: Diabetes mellitus complication detail: with other skin ulcer Diabetes mellitus complication status: with skin complications Diabetes mellitus group home insulin use: without longitudinal float operator use Diabetes mellitus type: type 2 Qualified Code(s): E11.622 - Type 2 diabetes mellitus with other skin ulcer (5) Retention of urine due to occlusion of Olivas catheter: (6) 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 Patient on baseline wheelchair-bound. Does have decubitus ulcer. Follows up with wound care as an outpatient. Continue dressing as per wound care recommendations. Qualifiers: Encounter type: initial encounter Qualified Code(s): S98.222A - Partial traumatic amputation of two or more left lesser toes, initial encounter (7) Sacral wound: (8) Wheelchair dependent: (9) Sepsis: (10) Pressure ulcer of coccygeal region: (11) Pressure ulcer of right buttock, stage 4: (12) Pressure ulcers of skin of multiple topographic sites: Plan Sepsis: On admission. In setting of possible UTI. Patient also has multiple pressure ulcers, history of chronic osteomyelitis recently finished IV antibiotic course 3 weeks ago Olivas replaced on admission. Urine culture growing E. coli. Appreciate sensitivity. Blood cultures negative. Continue with IV ceftriaxone. Will plan to finish a 5-day course. Adding Vancomycin. New onset CHF: Echocardiogram done shows an EF of 45% with grade 2 diastolic dysfunction, mild to moderate MR, trace AI. Underwent cardiac angiogram on 12/12. Concern for nonischemic cardiomyopathy. High LVEDP on cardiac angiogram. Lasix increased to 60 mg twice daily as per cardiology. Monitor renal functions. Fluid restriction to less than 1500 cc. Strict input output charting, daily weights. Depending on the blood pressure will try to add guideline directed medical therapy for congestive heart failure with beta-carrie and RENATE/ARB/ARNI. Goal blood pressure less than 140/90 mmHg with mean over 65. Will continue to monitor blood pressures. Currently slightly soft. A-fib RVR: Heart rate controlled. Back in normal sinus rhythm. Post cardioversion. Continue with amiodarone 400 mg twice daily. Will plan for 400 mg twice daily for next 7 days followed by 200 mg twice daily for 7 days followed by 200 mg daily. Holding off on beta-carrie given borderline blood pressures. Omega vas score: 5. Switch back to Eliquis 5 mg twice daily for stroke prevention. Hypoxia: Most likely in setting of combination of congestive heart failure. Cannot rule out pneumonia. 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 Check chest x-ray. Check proBNP. History of MRSA infection in the past. Add vancomycin to ceftriaxone. Patient is allergic to linezolid. Oxygen supplementation keeping saturation more than 90%. Ipratropium, Xopenex 4 times daily, Pulmicort twice daily. Incentive spirometry. Type 2 diabetes mellitus: A1c more than 9. Takes metformin and Ozempic as an outpatient. Discussed in detail with the patient regarding possible increase in dose of Ozempic as an outpatient. Patient will follow-up with PCP for further recommendations. Continue with sliding scale 3 times daily nightly for now. Depending on the insulin requirement in next 24 hours we will try to add Lantus. Plan for the day: Patient responding well to the IV Lasix. Overall around 9 L negative. Continue with 60 mg twice daily for today. Transition to oral 40 mg twice daily from tomorrow. Replace potassium. Monitor potassium every 12 hours given patient is on high level of diuretic. Replace 80 mg of potassium overall. Continue with amiodarone 400 mg twice daily. Eliquis 5 mg twice daily. Continue with IV ceftriaxone to finish a 5-day course. Will transition to oral antibiotics on discharge if discharged before 5 days. Discharge plan: Plan to discharge in the next 24 to 48 hours depending on fluid status to back home. Discussed about possible need of home health with the patient though he is not agreeable. Full code Diabetic diet consistent carb diet DVT prophylaxis: Eliquis will be sufficient for DVT prophylaxis Protonix OPD prophylaxis PDMP PDMP Reviewed: Not Reviewed Attestations Medical Necessity Statement*: Requires further hospitalization for management of new onset congestive heart failure as patient requires IV diuresis, replacement of potassium, A-fib with RVR post cardioversion Diagnoses Atrial fibrillation with rapid ventricular response I48.91 New onset of congestive heart failure I50.9 UTI (urinary tract infection) N39.0 Type 2 diabetes mellitus with other skin ulcer, without long-term current use of insulin E11.622 Diabetes mellitus complication detail: with other skin ulcer Diabetes mellitus complication status: with skin complications Diabetes mellitus longitudinal float operator insulin use: without group home use Diabetes mellitus type: type 2 Retention of urine due to occlusion of Olivas catheter T83.198A; R33.8 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
[2024-12-13] MEDS: potassium chloride ER 10 mEq Tablet 30 MEQ PO (18:23)
[2024-12-13 19:18] LABS: Anion Gap 15.6 (5-19); Blood Urea Nitrogen 18 mg/dL (6-20); Calcium 9.2 mg/dL (8.5-10.5); Carbon Dioxide 25 mmol/L (22-29); Chloride 102 mmol/L (98-107); Creatinine Clr Calc Pharmacy 256.2927; Glomerular Filtration Rate 223.3 mL/min (90-130); Glucose 226 mg/dL (65-115); Osmolality Calculated 297 mOsm/kg (285-295); Potassium 3.6 mmol/L (3.5-5.1); Sodium 139 mmol/L (136-145)
[2024-12-13] MEDS: acetylcysteine 200 mg/mL MDV 10 mL 100 MG INHALATION (19:52)
[2024-12-13 21:13] LABS: Glucose Point of Care 208 mg/dL (70-110)
[2024-12-13] MEDS: baclofen 10 mg Tablet 60 MG PO (21:24)
[2024-12-13 23:03] LABS: Vancomycin Trough 15.1 ug/mL (10-15)
[2024-12-14] VITALS (8 sets, daily range): BP systolic 93–125; BP diastolic 59–80; PULSE 69–87; RESP 16–26; TEMP 36.4–36.7; O2SAT 90–98
[2024-12-14 03:44] LABS: Basophils # 0.1 10^3/uL (0.0-0.1); Basophils % 1.1 %; Eosinophils # 0.3 10^3/uL (0.0-0.8); Eosinophils % 2.9 %; Hematocrit 43.1 % (37-53); Lymphocytes # 1.6 10^3/uL (0.8-4.8); Lymphocytes % 18.7 %; Mean Corpuscular HGB Conc 28.3 g/dL (30-55); Mean Corpuscular Hemoglobin 20.7 pg (27-33); Mean Corpuscular Volume 73.3 fl (82-101); Mean Platelet Volume 9.8 fL (7.4-10.4); Monocytes # 1.1 10^3/uL (0.2-0.9); Monocytes % 13.1 %; Neutrophils # 5.46 10^3/uL (1.8-7.7); Neutrophils % 63.6 %; Nucleated Red Blood Cells % 0 %; Platelet Count 287 10^3/cmm (157-399); Red Blood Count 5.88 10^6/uL (3.85-5.65); White Blood Count 8.57 10^3/uL (3.29-11.43)
[2024-12-14 04:14] LABS: Alanine Aminotransferase 99 U/L (0-41); Albumin Level 3.7 g/dL (3.5-5.2); Alkaline Phosphatase 115 U/L (40-130); Anion Gap 14.9 (5-19); Aspartate Amino Transferase 38 U/L (0-40); Blood Urea Nitrogen 18 mg/dL (6-20); Carbon Dioxide 27 mmol/L (22-29); Chloride 102 mmol/L (98-107); Creatinine Clr Calc Pharmacy 341.7236; Glomerular Filtration Rate 311.3 mL/min (90-130); Glucose 137 mg/dL (65-115); Osmolality Calculated 294 mOsm/kg (285-295); Potassium 3.9 mmol/L (3.5-5.1); Sodium 140 mmol/L (136-145); Total Bilirubin 0.3 mg/dL (0.15-1.2); Total Protein 6.7 g/dL (6.6-8.7)
[2024-12-14 04:20] LABS: Magnesium 1.9 mg/dL (1.7-2.3)
[2024-12-14] MEDS: baclofen 10 mg Tablet 40 MG PO (05:04)
[2024-12-14] MEDS: clopidogrel 75 mg Tablet PO (05:04)
[2024-12-14 06:25] LABS: Glucose Point of Care 175 mg/dL (70-110)
[2024-12-14] MEDS: acetylcysteine 200 mg/mL MDV 10 mL 100 MG INHALATION (07:46)
[2024-12-14] MEDS: budesonide 0.5 mg/2 mL Neb INHALATION (07:47)
[2024-12-14] MEDS: levalbuterol 0.63 mg/3 mL Neb INHALATION ×2 (07:47→10:59)
[2024-12-14] MEDS: ipratropium 0.5 mg/2.5 mL Neb INHALATION ×2 (07:47→10:59)
[2024-12-14] MEDS: FUROsemide 40 mg Tablet PO (08:50)
[2024-12-14] MEDS: pantoprazole 40 mg SDV IVP (08:50)
[2024-12-14] MEDS: apixaban 5 mg Tablet PO (08:50)
[2024-12-14] MEDS: PARoxetine 20 mg Tablet PO (08:50)
[2024-12-14] MEDS: amitriptyline 25 mg Tablet 10 MG PO (08:51)
[2024-12-14] MEDS: gabapentin 300 mg Capsule 600 MG PO (08:52)
[2024-12-14] MEDS: amiodarone 200 mg Tablet 400 MG PO (08:52)
[2024-12-14] MEDS: buPROPion SR (12 HR) 150 mg Tablet PO (08:53)
[2024-12-14] MEDS: sennosides-docusate Tablet 1 TAB PO (08:53)
[2024-12-14] MEDS: insulin lispro 100 unit/1 mL SUBCUT ×2 (08:53→12:13)
[2024-12-14] MEDS: vancomycin 1,250 MG/250 ML PIGGYBACK 166.6 MG IV (08:54)
[2024-12-14] MEDS: potassium chloride ER 20 mEq Tablet PO (09:00)
--- NOTE | 2024-12-14 10:59 | PM.DCS ---
Discharge Providers Date of Admission: 12/07/24 19:47 Date of Discharge: December 14, 2024 Attending Provider at Admission: Corine Rubalcava MD Attending Provider at Discharge: Augustus Torres MD Consults: Cardiology: Dr. Bower Primary Care Provider: Emelia Martínez Diagnoses at Discharge Discharge Diagnosis (1) Atrial fibrillation with rapid ventricular response: Status: Acute (2) New onset of congestive heart failure: Status: Acute (3) UTI (urinary tract infection): Status: Acute (4) Diabetes: Status: Acute Qualifiers: Diabetes mellitus complication detail: with other skin ulcer Diabetes mellitus complication status: with skin complications Diabetes mellitus terminal operations supervisor insulin use: without residential use Diabetes mellitus type: type 2 Qualified Code(s): E11.622 - Type 2 diabetes mellitus with other skin ulcer Permanent problem details: no insulin (5) Retention of urine due to occlusion of Olivas catheter: Status: Acute (6) 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: Status: Acute Qualifiers: Encounter type: initial encounter Qualified Code(s): S98.222A - Partial traumatic amputation of two or more left lesser toes, initial encounter (7) Sacral wound: Status: Acute (8) Wheelchair dependent: Status: Acute (9) Sepsis: Status: Acute (10) Pressure ulcer of coccygeal region: Status: Inactive (11) Pressure ulcer of right buttock, stage 4: Status: Inactive (12) Pressure ulcers of skin of multiple topographic sites: Status: Inactive Reason for Visit Reason for Visit: SOB/chest pains Brief History: As per HPI David Chen is a 54 year old male with history of paraplegia, multiple pressure ulcers follows up with wound care clinic, 3 weeks ago finished IV antibiotic regimen daptomycin for osteomyelitis, presenting with chief complaint of worsening shortness of breath. Patient is endorsing 3 to 4-week history of shortness of breath but orthopnea and PND without productive cough fever nausea vomiting diarrhea or chest pain. Patient was recently put on doxycycline for possibility of pneumonia. Workup in the ER did not show any sign of pneumonia on x-ray, no leukocytosis however he does have new onset A-fib RVR heart rate 140s, blood pressure dropped after getting Cardizem he was switched to amiodarone, at the time of my evaluation heart rate is around 140s, patient is awake and alert not complaining active chest pain blood pressure 114/83 mmHg he does have high BNP, high lactic acid He has been given cefepime for possibility of Cauti His changes his catheter regularly, last catheter change was a week ago Patient has been started on Ozempic as well for hyperglycemia, patient eats regular food at home He has been given 3 L IV bolus along cefepime blood cultures urine culture taken. With signs of heart failure and A-fib RVR heart rate around 145, I will give him a loading dose of digoxin as well 500 mcg Hospital Course Hospital Course Patient was admitted to the hospital further evaluation and management of A-fib with RVR, possible sepsis in setting of UTI along with concerns of congestive heart failure. He was started on broad-spectrum IV antibiotics, diuretic therapy. At first he was started on amiodarone drip. Heart rate was difficult to control hence cardiology was consulted and he was loaded with IV digoxin. As his heart rate continued to remain difficult to control with symptoms of CHF he underwent KARLY cardioversion on 12/10 after which he has remained in normal sinus rhythm. Echocardiogram was done which showed an EF 45% with dilated and hypokinetic RV. Given concerns for new congestive heart failure he underwent cardiac angiogram on 12/12 which was negative for acute ischemia. During hospitalization he was continued on IV diuresis and is net 10 L negative. Patient is back to his baseline oxygen supplementation. His blood culture and urine culture remain negative. He has finished a course of IV antibiotics for UTI. He is been discharged in hemodynamically stable condition on oral amiodarone 400 mg twice daily followed by 20 mg twice daily for 1 week followed by 200 mg daily, nebulization treatment with Pulmicort, ipratropium and Xopenex. He will be on Eliquis for anticoagulation along with Plavix. Aspirin has been discontinued. Physical Exam Narrative: General: No acute distress, AO x3 HEENT: PERRLA, pupils bilaterally equal and reactive Chest: Normal vesicular breath sounds, occasional rhonchi and crackles present in right lower zone, equal good air entry bilaterally CVS: S1-S2 regular, pansystolic murmur at apex radiating to anterior axillary line, no tachycardia, no gallops, no rubs Abdomen: Soft, nontender, no organomegaly, bowel sounds present Neuro: Bilateral lower limb paraplegia, no facial deformity, AO x3, Urinary Catheter Management: Olivas: Cath Placed During This Visit: no Reason for Continuing Indwelling Catheter: Chronic Indwelling Urinary Catheter on Admission Discharge Data Studies Completed and Pending Completed Studies During Hospitalization Category Date Time Status BUILDING SERVICES TECHNICIAN request for service Routine Exams 12/12/24 06:40 Completed XR chest 1V portable [id number] Routine Exams 12/12/24 10:49 Completed XR chest 1V portable [id number] Stat Exams 12/07/24 16:18 Completed XR chest 1V portable [id number] Stat Exams 12/11/24 01:25 [place] [id number] Routine Ultrasound 12/10/24 14:36 Completed CV. echo complete* [id number] Routine Ultrasound 12/07/24 09:00 Completed Pending at discharge Category Date Time Status MAG [Magnesium] AM LABS Lab 12/15/24 04:00 Ordered Radiology Impressions Chest X-Ray 12/12/24 10:49 IMPRESSION: 1. Mild enlarged cardiac silhouette. 2. Vlwa-rf-sisigtaz pulmonary edema versus infiltrates. 3. Linear bilateral lower chest pulmonary atelectasis, or scarring. Echocardiogram: CONCLUSIONS Mildly increased left ventricular cavity size. Moderately decreased left ventricular systolic function. Global left ventricular hypokinesis. Left ventricular ejection fraction is estimated at 45 %. Grade II/IV diastolic dysfunction, moderately elevated filling pressures. Moderate aortic valve calcification. No aortic valve stenosis. Trace aortic valve regurgitation. , mean gradient 3.5 mmHg, TEN 3.6 cm squared. Trace to mild aortic valve regurgitation. Moderately thickened mitral valve. Moderate mitral annular calcification. No mitral valve stenosis. Mild-moderate mitral valve regurgitation. There is no pericardial effusion. Right atrial pressure is around 5 mm of mercury. Corine Oconnell MD (Electronically Signed) Final Date: 08 December 2024 15:50 Golf Range Attendant procedure Conclusions 1. No disease noted in the Left Main, Left Anterior Descending, Right, or Circumflex coronary arteries. Patent prior RCA stent. Recommendations * LVEDP is very high. Continue IV diuresis. * Outpatient cardiology follow up. Laboratory Results WBC 8.57 10^3/uL (3.29-11.43) 12/14/24 02:55 RBC 5.88 10^6/uL (3.85-5.65) H 12/14/24 02:55 Hgb 12.20 g/dL (11.27-16.99) 12/14/24 02:55 Hct 43.1 % (37-53) 12/14/24 02:55 MCV 73.3 fl (82-101) L 12/14/24 02:55 MCH 20.7 pg (27-33) L 12/14/24 02:55 MCHC 28.3 g/dL (30-55) L 12/14/24 02:55 RDW 21.0 % (12.1-15.1) H 12/14/24 02:55 Plt Count 287 10^3/cmm (157-399) 12/14/24 02:55 MPV 9.8 fL (7.4-10.4) 12/14/24 02:55 Neut % (Auto) 63.6 % 12/14/24 02:55 Lymph % (Auto) 18.7 % 12/14/24 02:55 [place] % (Auto) 13.1 % 12/14/24 02:55 Eos % (Auto) 2.9 % 12/14/24 02:55 Baso % (Auto) 1.1 % 12/14/24 02:55 Neut # (Auto) 5.46 10^3/uL (1.8-7.7) 12/14/24 02:55 Lymph # (Auto) 1.6 10^3/uL (0.8-4.8) 12/14/24 02:55 [place] # (Auto) 1.1 10^3/uL (0.2-0.9) H 12/14/24 02:55 Eos # (Auto) 0.3 10^3/uL (0.0-0.8) 12/14/24 02:55 Baso # (Auto) 0.1 10^3/uL (0.0-0.1) 12/14/24 02:55 Nucleated RBC % (auto) 0 % 12/14/24 02:55 Nucleated RBCs # 0.0 /100WBC 12/14/24 02:55 PT 13.00 SECONDS (12.1-14.9) 12/07/24 16:50 INR 0.92 (0.8-1.2) 12/07/24 16:50 Sodium 140 mmol/L (136-145) 12/14/24 02:55 Potassium 3.9 mmol/L (3.5-5.1) 12/14/24 02:55 Chloride 102 mmol/L (98-107) 12/14/24 02:55 Carbon Dioxide 27 mmol/L (22-29) 12/14/24 02:55 Anion Gap 14.9 (5-19) 12/14/24 02:55 BUN 18 mg/dL (6-20) 12/14/24 02:55 Creatinine 0.3 mg/dL (0.7-1.2) L 12/14/24 02:55 GFR Calculation 311.3 mL/min (90-130) H 12/14/24 02:55 Glucose 137 mg/dL (65-115) H 12/14/24 02:55 POC Glucose 175 mg/dL (70-110) H 12/14/24 06:15 Estimat Average Glucose 229 12/12/24 05:44 Hemoglobin A1c 9.6 % (4.0-6.0) H 12/12/24 05:44 Calculated Osmolality 294 mOsm/kg (285-295) 12/14/24 02:55 Lactic Acid 3.9 mmol/L (0.5-2.2) H 12/07/24 16:50 Lactic Acid (Sepsis) 2.4 mmol/L (0.5-2.2) H 12/07/24 19:35 Calcium 9.0 mg/dL (8.5-10.5) 12/14/24 02:55 Phosphorus 2.9 mg/dL (2.5-4.5) 12/08/24 04:07 Magnesium 1.9 mg/dL (1.7-2.3) 12/14/24 02:55 Iron 32 ug/dL (59-158) L 12/12/24 05:44 TIBC 375 mcg/dl 12/12/24 05:44 % Saturation 8.5 % (20-50) L 12/12/24 05:44 Unsat Iron Binding 343 ug/dL (112-347) 12/12/24 05:44 Total Bilirubin 0.3 mg/dL (0.15-1.2) 12/14/24 02:55 AST 38 U/L (0-40) 12/14/24 02:55 ALT 99 U/L (0-41) H 12/14/24 02:55 Alkaline Phosphatase 115 U/L (40-130) 12/14/24 02:55 Troponin T Baseline 20 ng/L (0-15) H 12/07/24 16:50 Troponin T 120 Minute 19.27 ng/L (0-15) H 12/07/24 18:55 Delta Troponin T -0.73 ABS# (0-10) L 12/07/24 18:55 Troponin T Hi Sens 6Hr 19.98 ng/L (0-15) H 12/07/24 22:41 Troponin T Hi Sens 6Hr Delta -0.02 ng/L (0-12) L 12/07/24 22:41 C-Reactive Protein 14.7 mg/L (0.0-4.9) H 12/08/24 04:07 NT-Pro-B Natriuret Pep 526 pg/mL (0-125) H 12/12/24 05:44 Total Protein 6.7 g/dL (6.6-8.7) 12/14/24 02:55 Albumin 3.7 g/dL (3.5-5.2) 12/14/24 02:55 Globulin 3.0 g/dL (1.3-4.6) 12/14/24 02:55 Triglycerides 142 mg/dL (0-150) 12/13/24 02:25 Cholesterol 108 mg/dL (0-200) 12/13/24 02:25 LDL Cholesterol, Calc 49 mg/dL (50-129) L 12/13/24 02:25 Total VLDL Cholesterol 28 mg/dL (0-30) 12/13/24 02:25 HDL Cholesterol 31 mg/dL (60-100) L 12/13/24 02:25 Cholesterol/HDL Ratio 3.48 mg/dL (1.0-5.00) 12/13/24 02:25 Lipase 35 U/L (13-60) 12/07/24 16:50 Vitamin B12 1001 pg/mL (232-1245) 12/12/24 05:44 Folate 16.3 ng/mL (4.5-32.2) 12/13/24 02:25 Procalcitonin 0.05 ng/mL (0-0.5) 12/07/24 18:55 TSH 1.57 uIU/mL (0.27-4.20) 12/07/24 16:50 Urine Color Yellow (Yellow) 12/09/24 09:30 Urine Appearance Clear (CLEAR) 12/09/24 09:30 Urine pH 5.0 (5-7) 12/09/24 09:30 Ur Specific [place] 1.006 (1.005-1.030) 12/09/24 09:30 Urine Protein Negative (Negative) 12/09/24 09:30 Urine Glucose (UA) Negative (Normal) 12/09/24 09:30 Urine Ketones Negative (Negative) 12/09/24 09:30 Urine Blood Negative (Negative) 12/09/24 09:30 Urine Nitrate Negative (Negative) 12/09/24 09:30 Urine Bilirubin Negative (Negative) 12/09/24 09:30 Urine Urobilinogen 0.2 mg/dL (Negative) 12/09/24 09:30 Ur Leukocyte Esterase Negative (Negative) 12/09/24 09:30 Urine RBC 0-2 /hpf (0-2) 12/09/24 09:30 Urine WBC 0-5 /hpf (0-5) 12/09/24 09:30 Ur Squamous Epith Cells 0-5 /hpf (0-5) 12/09/24 09:30 Calcium Oxalate Crystal 0-4 /hpf H 12/07/24 17:08 Amorphous Sediment Not Reportable 12/09/24 09:30 Urine Bacteria None seen /hpf (NONE) 12/09/24 09:30 Hyaline Casts 0.40 /lpf 12/09/24 09:30 Urine Sperm 1+ /hpf 12/09/24 09:30 Vancomycin Trough 15.1 ug/mL (10-15) H 12/13/24 22:34 Vitals Last Vital Signs Temp 97.6 F 12/14/24 07:44 Pulse 69 12/14/24 08:07 Resp 17 12/14/24 07:47 BP 93/59 12/14/24 07:44 Pulse Ox 96 12/14/24 07:47 O2 Del Method Nasal Cannula 12/14/24 07:47 O2 Flow Rate 3 12/14/24 07:47 FiO2 4 12/11/24 06:30 Discharge Plan Discharge Patient Disposition: Home Condition: Stable Prescriptions: New amiodarone [Pacerone] 200 mg Tablet 200 mg PO BID Qty: 60 0RF Rx Instructions: 400 mg twice daily for 1 week, followed by 200 mg twice daily for 1 week followed by 20 mg daily budesonide 0.5 mg/2 mL Suspension For Nebulization 0.5 mg inhalation BID.RESPIRATORY Qty: 60 0RF Eliquis 5 mg Tablet 5 mg PO BID@0900,2100 Qty: 60 0RF furosemide 40 mg Tablet 40 mg PO BID@08,16 Qty: 60 0RF levalbuterol HCl 0.63 mg/3 mL Solution For Nebulization 0.63 mg inhalation TID Qty: 90 0RF ipratropium bromide 0.02 % Solution 0.5 mg inhalation TID Qty: 150 0RF dapagliflozin propanediol [Farxiga] 10 mg tablet 10 mg PO DAILY Qty: 60 0RF insulin glargine [Basaglar KwikPen U-100 Insulin] 100 unit/mL (3 mL) insulin pen 8 unit SUBCUT DAILY Qty: 15 0RF Continued baclofen 20 mg tablet See Rx Instructions .ROUTE .COMPLEX PRN (Reason: Pain (Scale Score 4-6)) Rx Instructions: 2 TABS IN AM, 4 TABS@ 4PM, AND 3 TABS AT BEDTIME clopidogrel 75 mg tablet 75 mg PO QAM fluticasone propionate [Flonase Allergy Relief] 50 mcg/actuation spray,suspension 2 spray INTRANASAL DAILY PRN (Reason: Allergy Symptoms) gabapentin 300 mg capsule 600 mg PO TID methenamine hippurate 1 gram tablet 1 gm PO BID ascorbate calcium (vitamin C) 500 mg tablet 500 mg PO BID paroxetine HCl 20 mg tablet 20 mg PO DAILY amitriptyline 10 mg tablet 10 mg PO BID multivitamin Tablet 1 tab PO DAILY vitamin A 2,400 mcg Capsule 2,400 mcg PO BEDTIME cholecalciferol (vitamin D3) [Vitamin D3] 25 mcg (1,000 unit) Capsule 25 mcg PO BEDTIME Probiotic 15 billion cell Capsule 1 cap PO BID bupropion HCl 150 mg tablet sustained-release 12 hr 150 mg PO BID metformin 1,000 mg tablet 1,000 mg PO BID esomeprazole magnesium [Nexium] 20 mg Capsule,Delayed Release(Dr/Ec) 20 mg PO DAILY coenzyme Q10 [CoQ-10] 100 mg Capsule 100 mg PO BEDTIME d-mannose 500 mg Capsule 500 mg PO BID calcium carb-D3-mag ox-zinc ox [Jevon Mag Zinc Plus D3] 333 mg-133 unit -133 mg-5 mg Tablet 1 tab PO BEDTIME Trelegy Ellipta 100-62.5-25 mcg blister with device 1 inh inhalation DAILY Qty: 60 0RF hypoc ac-sod hyp-NaCl-el water 0.02 % spray,non-aerosol 2 spray topical DAILY PRN (Reason: dryness) Rx Instructions: [place] Wound Plus Skin guaifenesin 100 mg Tablet 400 mg PO Q4H PRN (Reason: Congestion) Discontinued aspirin [Adult Aspirin Regimen] 81 mg tablet,delayed release (DR/EC) 81 mg PO QAM Discharge Orders: Discharge Order (Routine); Ordered 12/14/24 Ordered By: Augustus Torres Other Ambulatory Orders: DME: Miscellaneous (Order) Location: None Selected Ordered By: Augustus Torres DME: Nebulizer with Neb Kit (Order) Location: None Selected Ordered By: Augustus Torres Referrals: Emelia Martínez [Primary Care Provider] - 12/23/24 9:00 am (This appointment will be scheduled with Marion Gilman. Thank you. ) Isadora Higgins FNP [Nurse Practitioner] - 12/22/24 2:30 pm Discharge Diet: Cardiac and Diabetic Discharge Activity: Resume usual activity Patient Instructions: Furosemide (By mouth) (Lasix), Ipratropium (By breathing) (Atrovent HFA), Amiodarone (By mouth) (Cordarone, Pacerone), Budesonide (Into the nose), Levalbuterol (By breathing) (Xopenex, Xopenex HFA, Xopenex Pediatric), Insulin Glargine (By injection) (Lantus, Lantus SoloStar, Toujeo, Semglee), Insulin Glargine (By injection), Apixaban (By mouth) (Eliquis), Dapagliflozin (By mouth) (Farxiga), Heart Failure (DC), A-fib (Atrial Fibrillation) (DC), Urinary Tract Infection in Men (DC), How to Give an Insulin Injection (DC), Sepsis (DC), CHF Stoplight, Opioid Safety, Post Angiogram Home Care Instructions Activity Restrictions/Additional Instructions: Take amiodarone 400 mg twice daily for next 1 week followed by 200 mg twice daily followed by 20 mg daily. Do not take aspirin anymore. Continue taking Plavix and Eliquis 5 mg twice daily. Continue taking your metformin as before. Farxiga has been added to your medication list. Also start on Lantus 8 units daily. Please check your blood pressure and fasting blood sugar daily and maintain a diary and follow-up with a primary care provider within next 2 weeks for further adjustment of medications. Restrict fluid intake to less than 1500 cc, salt intake to less than 2 g daily. Advised to check his weight daily at home. Is advised that weight today would be the dry weight and if body weight increases by around 5 pounds, patient is to take an extra dose of Lasix daily till body weight comes down to weight today. If not able to come down to dry body weight in 1 week, then is to call cardiology office for further recommendations. Patient was counseled in detail to take medications regularly as prescribed. Discharge Attestations Time Spent in Discharge Care*: greater than 30 min Specific Discharge Activities: educating patient, educating and/or supporting family/caregiver, discussing with pcp/other providers, discussing with shoe caser/social workers/dc planners, documenting/other paperwork and evaluating patient/reviewing data Status at Discharge: Cognitive status at discharge: cognitively intact, Behavioral status at discharge: cooperative, Functional status at discharge: bed bound, Overall status at discharge: patient is back to baseline Quality Metrics Clinical Quality Measures [ No reported AMI, CVA or VTE this stay] Coding Level of Care Code 32906 Total time (in minutes) for Discharge: 70 Diagnoses Atrial fibrillation with rapid ventricular response I48.91 New onset of congestive heart failure I50.9 UTI (urinary tract infection) N39.0 Type 2 diabetes mellitus with other skin ulcer, without long-term current use of insulin E11.622 Diabetes mellitus complication detail: with other skin ulcer Diabetes mellitus complication status: with skin complications Diabetes mellitus terminal operations supervisor insulin use: without residential use Diabetes mellitus type: type 2 Retention of urine due to occlusion of Olivas catheter T83.198A; R33.8 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
[2024-12-14 11:38] LABS: Glucose Point of Care 216 mg/dL (70-110)
--- NOTE | 2024-12-14 11:49 | PC.SOCIAL ---
IMM Updated Updated pt & on IMM. No questions voiced. Provided pt a copy. Initialed, dated, & timed copy in chart.
[2024-12-14] MEDS: cefTRIAXone 1,000 mg SDV 1000 MG IVP (12:13)
--- NOTE | 2024-12-14 14:49 | P.PN_ITS ---
<Statement entered by Corine Oconnell MD - 12/15/24 00:33> Patient was evaluated and cared for in conjunction with an advanced practice practitioner. I personally examined the patient and reviewed the chart and all pertinent data including imaging, telemetry, and laboratory results. I discussed the patient in detail with the advanced practice practitioner. Please see their note for complete H&P testing result and agreed upon plan of care for the patient. Patient denies any complaint GENERAL: Patient is alert, awake and oriented x3. HEART: Regular S1 and S2. No murmur, rub or gallop. LUNGS: Clear to auscultate bilaterally. CENTRAL NERVOUS SYSTEM: Grossly nonfocal. EXTREMITIES: Lower extremities with out edema bilaterally. Assessment and plan Atrial fibrillation rate controlled Acute decompensated systolic heart failure now compensated Nonischemic cardiomyopathy Reduce potassium to 20 mg once a day Lasix will be reduced to 40 mg once a day Add Entresto as an outpatient once tolerate blood pressure sebastian Continue amiodarone Continue plan as below Follow-up in the cardiology clinic within 10 days Heart failure education was given Subjective 2 Subjective: Patient overall doing well. He appears to be at baseline. Groin insertion site clean dry intact no signs or symptoms of pseudoaneurysm palpable femoral pulse present. Currently at Lasix 40 twice daily had over 1400 mL out over 24 hours. Vitals are stable. Creatinine stable at 0.3. Patient has no complaints at this time Vitals/I&O/Wt Last Vital Signs Temp 97.9 F 12/14/24 12:00 Pulse 87 12/14/24 13:55 Resp 18 12/14/24 13:55 BP 125/80 12/14/24 13:55 Pulse Ox 94 12/14/24 13:55 O2 Del Method Nasal Cannula 12/14/24 12:00 O2 Flow Rate 2 12/14/24 12:00 FiO2 4 12/11/24 06:30 12/13/24 12/14/24 12/14/24 22:59 06:59 14:59 Intake Total 730 / 1220 490 / 1710 250 / 250 Output Total 300 / 2800 350 / 3150 Balance 430 / -1580 140 / -1440 250 / 250 Weight last 48 hrs Weight 229 lb 9.6 oz Weight 229 lb 9.6 oz Physical Exam 2 Narrative: General: No apparent distress, healthy appearing, well nourished HENMT: normoceophalic Muskuloskeletal: Patient has a hx of paraplegia Lymphatic: no lymphedema noted Respiratory: Normal respiratory effort, bilateral lower lobes expiratory wheezes, no use of accessory muscles Cardio: No JVD, regular rate, regular rhythm, S1 S2 normal, no murmurs, peripheral pulses 2+ radial bilaterally GI: Normal to inspection, nondistended Extremities: Full ROM, normal, normal capillary refill, no cyanosis or edema Neuro: Alert and oriented x4, no focal motor deficits Psych: Affect normal, denies suicidal ideation, mental status grossly normal Skin: No abnormalities Urinary Catheter Management: Olivas: Cath Placed During This Visit: no Reason for Continuing Indwelling Catheter: Chronic Indwelling Urinary Catheter on Admission Data 12/14/24 02:55 12/14/24 02:55 A&P Assessment and plan (1) Atrial fibrillation with rapid ventricular response: (2) New onset of congestive heart failure: (3) Hypertension: Qualifiers: Hypertension type: primary hypertension Qualified Code(s): I10 - Essential (primary) hypertension Plan Recommend continue Plavix and Eliquis. Due to crackles and increased LVEDP, will continue Lasix at 40 twice daily and titrate to patient's response on an outpatient basis. Will decrease potassium to 20 meq BID. Creatinine normal at this time. Continue metoprolol 25 mg BID, continue amio 400 BID. BP has been soft. Will consider adding Entresto in the future if BP allows. Recommend adding SLGT 2 inhibitor such as Jardiance or Farxiga on outpatient basis. From a cardiology standpoint, patient may be discharged. PDMP PDMP Reviewed: Not Reviewed Attestations 2 Medical Necessity Statement*: Patient may be discharged from cardiology standpoint. Coding Level of Care Code Acute Code for Chg Fwd Diagnoses Atrial fibrillation with rapid ventricular response I48.91 New onset of congestive heart failure I50.9 Primary hypertension I10 Hypertension type: primary hypertension
--- NOTE | 2024-12-14 16:22 | PC.NURSE ---
discharge instructions given and explained to pt and spouse.they verb understanding of instructions.discharged via pt's electric w/c to exit at this time.spouse to drive pt home
== END 2024-12-14 16:23 | disposition home or self-care (01) | DRG 698 ==
LOC: ER 17:57 → CSU 19:48 → ICU 21:01 → CSU 12-08 18:31 → ICU 12-11 03:50 → CSU 12-12 21:30
PROVIDERS: Emergency Medicine; Internal Medicine; Admitting Provider Internal Medicine; Emergency Provider Emergency Medicine; PCP Registered Nurse; Visit Provider Student in an Organized Health Care Education/Training Program
PROC: 4A023N7 Measurement of Cardiac Sampling and Pressure, Left Heart, Percutaneous Approach (ICD-10-PCS; principal; 2024-12-12 08:00)
DX: T83.511A Infection and inflammatory reaction due to indwelling urethral catheter, initial encounter (principal); A41.9 Sepsis, unspecified organism; L89.154 Pressure ulcer of sacral region, stage 4; L89.314 Pressure ulcer of right buttock, stage 4; G82.20 Paraplegia, unspecified; I42.8 Other cardiomyopathies; N39.0 Urinary tract infection, site not specified; B96.20 Unspecified Escherichia coli [E. coli] as the cause of diseases classified elsewhere; Y73.8 Miscellaneous gastroenterology and urology devices associated with adverse incidents, not elsewhere classified; I48.91 Unspecified atrial fibrillation; I11.0 Hypertensive heart disease with heart failure; I50.9 Heart failure, unspecified; E11.9 Type 2 diabetes mellitus without complications; T83.091A Other mechanical complication of indwelling urethral catheter, initial encounter; N13.9 Obstructive and reflux uropathy, unspecified; N31.9 Neuromuscular dysfunction of bladder, unspecified; I25.10 Atherosclerotic heart disease of native coronary artery without angina pectoris; E78.5 Hyperlipidemia, unspecified; I95.9 Hypotension, unspecified; R09.02 Hypoxemia; Z99.3 Dependence on wheelchair; Z89.422 Acquired absence of other left toe(s); Z86.74 Personal history of sudden cardiac arrest; Z87.440 Personal history of urinary (tract) infections; Z87.891 Personal history of nicotine dependence; Z79.82 Long term (current) use of aspirin; Z79.02 Long term (current) use of antithrombotics/antiplatelets; Z79.85 Long-term (current) use of injectable non-insulin antidiabetic drugs; Z79.84 Long term (current) use of oral hypoglycemic drugs
CPT/HCPCS: 11042; 12345; 36415; 36416; 71045; 80048; 80053; 80061; 80202; 81001; 82607; 82746; 82962; 83036; 83540; 83550; 83605; 83690; 83735; 83880; 84100; 84145; 84443; 84484; 85025; 85610; 86140; 87040; 87077; 87086; 87186; 92523; 92526; 92610; 93005; 93306; 93312; 93320; 93325; 93458; 94640; 96365; 96366; 96367; 96372; 96374; 96375; 96376; 97597; 99152; 99153; 99285; A4222; A6219; A6446; C1760; C1769; C1887; C1894; G0269; J0283; J0360; J0692; J0696; J1160; J1200; J1644; J1650; J1815; J1940; J2250; J2371; J2470; J2704; J3010; J3370; J3372; J3490; J7030; J7040; J7608; J7614; J7626; J7644; Q9967

== ENCOUNTER → 2024-12-22 14:47 | Outpatient (BNVA) | payer MEDICARE, MEDICAID, SELFPAY | PROVIDERS: PCP Registered Nurse; Visit Provider Nurse Practitioner Family | DX: I48.91 Unspecified atrial fibrillation (principal); R93.1 Abnormal findings on diagnostic imaging of heart and coronary circulation; I45.10 Unspecified right bundle-branch block; I25.10 Atherosclerotic heart disease of native coronary artery without angina pectoris; E11.9 Type 2 diabetes mellitus without complications; I11.0 Hypertensive heart disease with heart failure; I50.9 Heart failure, unspecified; Z79.01 Long term (current) use of anticoagulants; Z79.4 Long term (current) use of insulin | CPT/HCPCS: 93005; 99214 ==

== ENCOUNTER → 2025-01-03 11:01 | Outpatient (BNVA) | payer MEDICARE, MEDICAID, SELFPAY | PROVIDERS: PCP Registered Nurse; Visit Provider Thoracic Surgery (Cardiothoracic Vascular Surgery) | DX: I96 Gangrene, not elsewhere classified (principal); L89.154 Pressure ulcer of sacral region, stage 4; L89.214 Pressure ulcer of right hip, stage 4; L89.313 Pressure ulcer of right buttock, stage 3 | CPT/HCPCS: 97597; A6197 ==

== ENCOUNTER → 2025-01-17 11:06 | Outpatient (BNVA) | payer MEDICARE, MEDICAID, SELFPAY | PROVIDERS: PCP Registered Nurse; Visit Provider Thoracic Surgery (Cardiothoracic Vascular Surgery) | DX: I96 Gangrene, not elsewhere classified (principal); L89.154 Pressure ulcer of sacral region, stage 4; L89.214 Pressure ulcer of right hip, stage 4; L89.313 Pressure ulcer of right buttock, stage 3 | CPT/HCPCS: 97597; A6220 ==

== ENCOUNTER → 2025-02-14 10:58 | Outpatient (BNVA) | payer MEDICARE, MEDICAID, SELFPAY | PROVIDERS: PCP Registered Nurse; Visit Provider Thoracic Surgery (Cardiothoracic Vascular Surgery) | DX: I96 Gangrene, not elsewhere classified (principal); L89.154 Pressure ulcer of sacral region, stage 4; L89.214 Pressure ulcer of right hip, stage 4; L89.313 Pressure ulcer of right buttock, stage 3 | CPT/HCPCS: 97597 ==

== ENCOUNTER → 2025-02-28 10:59 | Outpatient (BNVA) | payer MEDICARE, MEDICAID, SELFPAY | PROVIDERS: PCP Registered Nurse; Visit Provider Thoracic Surgery (Cardiothoracic Vascular Surgery) | DX: I96 Gangrene, not elsewhere classified (principal); L89.154 Pressure ulcer of sacral region, stage 4; L89.214 Pressure ulcer of right hip, stage 4; L89.313 Pressure ulcer of right buttock, stage 3 | CPT/HCPCS: 97597 ==

== ENCOUNTER → 2025-03-14 10:57 | Outpatient (BNVA) | payer MEDICARE, MEDICAID, SELFPAY | PROVIDERS: PCP Registered Nurse; Visit Provider Thoracic Surgery (Cardiothoracic Vascular Surgery) | DX: I96 Gangrene, not elsewhere classified (principal); L89.313 Pressure ulcer of right buttock, stage 3; L89.154 Pressure ulcer of sacral region, stage 4; L89.214 Pressure ulcer of right hip, stage 4 | CPT/HCPCS: 11042; 97597; A6210; A6251 ==

== ENCOUNTER → 2025-03-28 11:03 | Outpatient (BNVA) | payer MEDICARE, MEDICAID, SELFPAY | PROVIDERS: PCP Registered Nurse; Visit Provider Thoracic Surgery (Cardiothoracic Vascular Surgery) | DX: I96 Gangrene, not elsewhere classified (principal); L89.314 Pressure ulcer of right buttock, stage 4; L89.154 Pressure ulcer of sacral region, stage 4; L89.214 Pressure ulcer of right hip, stage 4 | CPT/HCPCS: 11042; 11044; 87070; 87176; 87205; 97597 ==

== ENCOUNTER 2025-04-07 12:03 | Outpatient (CLI) | payer MEDICARE, MEDICAID, SELFPAY ==
[2025-04-07] MEDS: iohexol 350 mg/mL 500 mL Btl (per mL) IV (13:41)
[2025-04-07 13:59] LABS: Basophils # 0.1 10^3/uL (0.0-0.1); Eosinophils # 0.2 10^3/uL (0.0-0.8); Hematocrit 47.9 % (37-53); Lymphocytes # 1.7 10^3/uL (0.8-4.8); Lymphocytes % 14.1 %; Mean Corpuscular HGB Conc 29.9 g/dL (30-55); Mean Corpuscular Hemoglobin 21.5 pg (27-33); Mean Corpuscular Volume 71.9 fl (82-101); Mean Platelet Volume 8.9 fL (7.4-10.4); Monocytes # 1.2 10^3/uL (0.2-0.9); Monocytes % 9.7 %; Neutrophils % 72.4 %; Nucleated Red Blood Cells % 0 %; Platelet Count 368 10^3/cmm (157-399); Red Blood Count 6.66 10^6/uL (3.85-5.65); Red Cell Distribution Width 19.6 % (12.1-15.1); White Blood Count 12.15 10^3/uL (3.29-11.43)
--- NOTE | 2025-04-07 14:00 | CTR_ITS ---
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 Radiation optimization: All CT scans at this facility use at least one of these dose optimization techniques: automated exposure control; mA and/or kV adjustment per patient size (includes targeted exams where dose is matched to clinical indication); or iterative reconstruction. Contrast material: OMNI 350; Contrast volume: 100 ml; Contrast route: INTRAVENOUS (IV); COMPARISON: CT abdomen pelvis w con* [id number] 10/11/2024 8:51 AM RADIATION DOSE METRICS: Total DLP (mGy-cm): 748.43 FINDINGS: Tubes, catheters and devices: Catheter is identified within the urinary bladder. Lungs: Bilateral pleuroparenchymal pulmonary linear scarring, fibrotic changes identified within lower lungs. Coronary arteries: Coronary arterial calcifications are demonstrated. Liver: Liver demonstrates diffuse moderate hypodensity. Liver appears heterogeneous with irregular border. Possible hepatic parenchymal disease. Gallbladder and biliary ducts: Unremarkable. No calcified stones. No ductal dilation. Pancreas: Unremarkable. Spleen: Unremarkable. No splenomegaly. Adrenal glands: Normal. No mass. Kidneys and ureters: Unremarkable. No hydronephrosis or calculi. Stomach and bowel: Generalized colonic diverticulosis is demonstrated. Possible mild increased volume of colonic fecal material identified throughout the colon. The bowel appears otherwise unremarkable. Appendix: The visualized appendix appears unremarkable. Intraperitoneal space: No free air. No significant fluid collection. Vasculature: Inferior vena cava filter is demonstrated. Mild atherosclerotic calcification demonstrated within the aorta. Mild atherosclerotic arterial vascular wall calcifications are demonstrated. Lymph nodes: No enlarged lymph nodes. Urinary bladder: Urinary bladder appears small in size, limiting further assessment. Reproductive: Unremarkable as visualized. Bones/joints: Decubitus wound lateral to the right hip, proximal femur. Soft tissue defect measures up to 4.5 cm on axial image 82 and appears slightly larger, previously measuring up to 3 cm. Adjacent skin thickening and soft tissue edema. Adjacent chronic bony irregularity without progression or new destructive bony changes. Diffusely decreased bone density. Grade 2 anterior spondylolisthesis is demonstrated within the lumbar sacral junction. The spondylolisthesis measures 15 mm. Moderate to severe degenerative disc disease in the lumbar sacral spine. Disc and osteophyte complexes with moderate to severe central canal and foraminal narrowing within the lower lumbar spine and lumbar sacral junction. Posterior laminectomy postsurgical changes within lumbosacral region. Severe degenerative changes are again demonstrated within bilateral hips. There is adjacent severe dystrophic calcifications adjacent to the hips bilaterally. Soft tissues: Large deep decubitus wound within the right lower gluteal region extending to the ischium. This defect measures up to 9.4 cm in length on axial image 91. There is adjacent skin thickening and subcutaneous edema. Adjacent sclerosis and bony irregularity of the right ischium and right inferior pubic ramus appear stable without progression of destructive bony changes since October 2024. Midline sacral decubitus wound is again demonstrated within the posterior lower pelvis. This demonstrates some enlargement since October 2024. Skin defect measures up to 1.8 cm transverse diameter and defect measures 3 cm deep. Defect appears larger. There is adjacent skin thickening and subcutaneous edema. Adjacent resection of the S5 sacrum and coccyx is again demonstrated. The visualized lower sacrum appears well-defined and sclerotic with stable appearance. No progression of bony destructive change. Other findings: Limited study with motion artifact. CT/CT abdomen pelvis w con* [id number] IMPRESSION: 1. Large deep decubitus wound within the right lower gluteal region extending to the ischium appears stable. Stable bony sclerosis along the right ischium and right inferior pubic ramus without new bony destructive changes. 2. Midline sacral decubitus wound has enlarged in size since October 2024. Stable adjacent chronic and postsurgical bony changes involving the sacrum coccyx. 3. Slightly larger decubitus soft tissue wound lateral to the right hip and proximal femur. Adjacent right femur appears stable. 4. Pulmonary fibrosis within lower lungs bilaterally. 5. Moderate hepatic steatosis. Nonspecific heterogeneous and irregular appearance of the liver. Recommend correlation with liver function tests. 6. Colonic diverticulosis. Possible mild constipation. 7. Chronic findings. Degenerative and postsurgical changes are demonstrated, as described above. COMMENTS: For patients with an IVC filter, recommend assessment for a management plan for the patient's IVC filter. If there is no established management plan, recommend referral to an interventional clinician on a nonemergent basis for evaluation.
[2025-04-07 14:35] LABS: Alanine Aminotransferase 38 U/L (0-41); Albumin Level 3.8 g/dL (3.5-5.2); Alkaline Phosphatase 92 U/L (40-130); Anion Gap 20.1 (5-19); Aspartate Amino Transferase 18 U/L (0-40); Blood Urea Nitrogen 23 mg/dL (6-20); C Reactive Protein 33.4 mg/L (0.0-4.9); Calcium 9.4 mg/dL (8.5-10.5); Carbon Dioxide 24 mmol/L (22-29); Chloride 95 mmol/L (98-107); Globulin 3.8 g/dL (1.3-4.6); Glomerular Filtration Rate 310.1 mL/min (90-130); Glucose 197 mg/dL (65-115); Osmolality Calculated 289 mOsm/kg (285-295); Potassium 4.1 mmol/L (3.5-5.1); Prealbumin 25.5 mg/dL (20-40); Sodium 135 mmol/L (136-145); Total Bilirubin 0.2 mg/dL (0.15-1.2); Total Protein 7.6 g/dL (6.6-8.7)
[2025-04-07 15:09] LABS: Estmated Average Glucose 226; Hemoglobin A1C 9.5 % (4.0-6.0)
== END 2025-04-07 12:04 | disposition home or self-care (01) ==
LOC: RAD 12:04
PROVIDERS: PCP Registered Nurse; Visit Provider Thoracic Surgery (Cardiothoracic Vascular Surgery)
DX: L89.314 Pressure ulcer of right buttock, stage 4 (principal); L89.154 Pressure ulcer of sacral region, stage 4; E11.622 Type 2 diabetes mellitus with other skin ulcer; L89.219 Pressure ulcer of right hip, unspecified stage; L89.899 Pressure ulcer of other site, unspecified stage; J84.10 Pulmonary fibrosis, unspecified; K76.0 Fatty (change of) liver, not elsewhere classified; R93.2 Abnormal findings on diagnostic imaging of liver and biliary tract; K57.30 Diverticulosis of large intestine without perforation or abscess without bleeding; R93.89 Abnormal findings on diagnostic imaging of other specified body structures; J98.4 Other disorders of lung; I25.10 Atherosclerotic heart disease of native coronary artery without angina pectoris; I70.0 Atherosclerosis of aorta; I70.90 Unspecified atherosclerosis; M43.17 Spondylolisthesis, lumbosacral region; M51.379 Other intervertebral disc degeneration, lumbosacral region without mention of lumbar back pain or lower extremity pain; M25.78 Osteophyte, vertebrae; M48.061 Spinal stenosis, lumbar region without neurogenic claudication; M48.07 Spinal stenosis, lumbosacral region; M16.0 Bilateral primary osteoarthritis of hip
CPT/HCPCS: 74177; 80053; 83036; 84134; 85025; 86140; 97597

== ENCOUNTER → 2025-04-18 09:00 | Outpatient (BNVA) | payer MEDICARE, MEDICAID, SELFPAY | PROVIDERS: PCP Registered Nurse; Visit Provider Thoracic Surgery (Cardiothoracic Vascular Surgery) | DX: I96 Gangrene, not elsewhere classified (principal); L89.154 Pressure ulcer of sacral region, stage 4; L89.214 Pressure ulcer of right hip, stage 4 | CPT/HCPCS: 97597 ==

== ENCOUNTER → 2025-05-02 09:07 | Outpatient (BNVA) | payer MEDICARE, MEDICAID, SELFPAY | PROVIDERS: PCP Registered Nurse; Visit Provider Thoracic Surgery (Cardiothoracic Vascular Surgery) | DX: I96 Gangrene, not elsewhere classified (principal); L89.154 Pressure ulcer of sacral region, stage 4; L89.214 Pressure ulcer of right hip, stage 4; L89.313 Pressure ulcer of right buttock, stage 3 | CPT/HCPCS: 97597 ==

== ENCOUNTER → 2025-05-16 08:46 | Outpatient (BNVA) | payer MEDICARE, MEDICAID, SELFPAY | PROVIDERS: PCP Registered Nurse; Visit Provider Thoracic Surgery (Cardiothoracic Vascular Surgery) | DX: L89.154 Pressure ulcer of sacral region, stage 4 (principal); L89.214 Pressure ulcer of right hip, stage 4; L89.313 Pressure ulcer of right buttock, stage 3 | CPT/HCPCS: 97597 ==

== ENCOUNTER → 2025-06-05 08:21 | Outpatient (BNVA) | payer MEDICARE, MEDICAID, SELFPAY | PROVIDERS: PCP Registered Nurse; Visit Provider Thoracic Surgery (Cardiothoracic Vascular Surgery) | DX: I96 Gangrene, not elsewhere classified (principal); L89.154 Pressure ulcer of sacral region, stage 4; L89.214 Pressure ulcer of right hip, stage 4 | CPT/HCPCS: 87070; 87176; 87205; 97597 ==

== ENCOUNTER → 2025-06-19 09:17 | Outpatient (BNVA) | payer MEDICARE, MEDICAID, SELFPAY | PROVIDERS: PCP Registered Nurse; Visit Provider Thoracic Surgery (Cardiothoracic Vascular Surgery) | DX: I96 Gangrene, not elsewhere classified (principal); L89.154 Pressure ulcer of sacral region, stage 4; L89.224 Pressure ulcer of left hip, stage 4; L89.313 Pressure ulcer of right buttock, stage 3 | CPT/HCPCS: 87070; 87176; 87205; 97597 ==

== ENCOUNTER → 2025-07-03 09:26 | Outpatient (BNVA) | payer MEDICARE, MEDICAID, SELFPAY | PROVIDERS: PCP Registered Nurse; Visit Provider Thoracic Surgery (Cardiothoracic Vascular Surgery) | DX: I96 Gangrene, not elsewhere classified (principal); L89.154 Pressure ulcer of sacral region, stage 4; L89.214 Pressure ulcer of right hip, stage 4; L89.313 Pressure ulcer of right buttock, stage 3 | CPT/HCPCS: 97597 ==

== ENCOUNTER → 2025-07-18 14:03 | Outpatient (BNVA) | payer MEDICARE, MEDICAID, SELFPAY | PROVIDERS: PCP Registered Nurse; Visit Provider Thoracic Surgery (Cardiothoracic Vascular Surgery) | DX: I96 Gangrene, not elsewhere classified (principal); L89.154 Pressure ulcer of sacral region, stage 4; L89.214 Pressure ulcer of right hip, stage 4; L89.313 Pressure ulcer of right buttock, stage 3 | CPT/HCPCS: 97597 ==

== ENCOUNTER → 2025-08-23 10:51 | Outpatient (BNVA) | payer MEDICARE, MEDICAID, SELFPAY | PROVIDERS: PCP Registered Nurse; Visit Provider Thoracic Surgery (Cardiothoracic Vascular Surgery) | DX: I96 Gangrene, not elsewhere classified (principal); L89.313 Pressure ulcer of right buttock, stage 3; L89.154 Pressure ulcer of sacral region, stage 4 | CPT/HCPCS: 97597; A6197 ==

== ENCOUNTER → 2025-09-20 09:00 | Outpatient (BNVA) | payer MEDICARE, MEDICAID, SELFPAY | PROVIDERS: PCP Registered Nurse; Visit Provider Thoracic Surgery (Cardiothoracic Vascular Surgery) | DX: I96 Gangrene, not elsewhere classified (principal); L89.154 Pressure ulcer of sacral region, stage 4; L89.214 Pressure ulcer of right hip, stage 4; L89.313 Pressure ulcer of right buttock, stage 3 | CPT/HCPCS: 97597 ==

== ENCOUNTER → 2025-10-20 09:00 | Outpatient (BNVA) | payer MEDICARE, MEDICAID, SELFPAY | PROVIDERS: PCP Registered Nurse; Visit Provider Thoracic Surgery (Cardiothoracic Vascular Surgery) | DX: L89.214 Pressure ulcer of right hip, stage 4 (principal); L89.154 Pressure ulcer of sacral region, stage 4; L89.313 Pressure ulcer of right buttock, stage 3 | CPT/HCPCS: 97597; 97598 ==

== ENCOUNTER → 2025-10-26 09:27 | Outpatient (BNVA) | payer MEDICARE, MEDICAID, SELFPAY | PROVIDERS: PCP Registered Nurse; Visit Provider Thoracic Surgery (Cardiothoracic Vascular Surgery) | DX: I96 Gangrene, not elsewhere classified (principal); L89.154 Pressure ulcer of sacral region, stage 4; L89.214 Pressure ulcer of right hip, stage 4; L89.313 Pressure ulcer of right buttock, stage 3 | CPT/HCPCS: 97597; A6237; A6250 ==

== ENCOUNTER 2025-11-08 12:55 | Outpatient (CLI) | payer MEDICARE, MEDICAID, SELFPAY ==
[2025-11-08 13:20] LABS: Hematocrit 37.6 % (37-53); Hemoglobin 11.00 g/dL (11.27-16.99); Mean Corpuscular HGB Conc 29.3 g/dL (30-55); Mean Corpuscular Hemoglobin 20.9 pg (27-33); Mean Corpuscular Volume 71.3 fl (82-101); Nucleated Red Blood Cells % 0 %; Platelet Count 635 10^3/cmm (157-399); Red Blood Count 5.27 10^6/uL (3.85-5.65); White Blood Count 13.60 10^3/uL (3.29-11.43)
[2025-11-08 13:44] LABS: Alanine Aminotransferase 38 U/L (0-41); Albumin Level 2.9 g/dL (3.5-5.2); Alkaline Phosphatase 101 U/L (40-130); Anion Gap 18.1 (5-19); Aspartate Amino Transferase 17 U/L (0-40); Blood Urea Nitrogen 15 mg/dL (6-20); Calcium 9.4 mg/dL (8.5-10.5); Carbon Dioxide 24 mmol/L (22-29); Chloride 91 mmol/L (98-107); Globulin 4.4 g/dL (1.3-4.6); Glucose 404 mg/dL (65-115); Osmolality Calculated 286 mOsm/kg (285-295); Potassium 4.1 mmol/L (3.5-5.1); Sodium 129 mmol/L (136-145); Total Protein 7.3 g/dL (6.6-8.7)
[2025-11-08 13:52] LABS: Slide Review Slide Review Perform
== END 2025-11-08 12:56 | disposition home or self-care (01) ==
PROVIDERS: PCP Registered Nurse; Visit Provider Thoracic Surgery (Cardiothoracic Vascular Surgery)
DX: I96 Gangrene, not elsewhere classified (principal); L89.154 Pressure ulcer of sacral region, stage 4; L89.214 Pressure ulcer of right hip, stage 4; L89.313 Pressure ulcer of right buttock, stage 3
CPT/HCPCS: 36415; 80053; 85025; 85651; 86140; 87070; 87176; 87205; 97597